=== PATIENT | male | born 1945 | race Caucasian/White ===

== ENCOUNTER 2021-03-12 05:27 | Emergency (ER) | payer OTHER ==
--- OUTSIDE RECORDS SUMMARY | 2021-03-12 05:30 | XMS REPORT | Continuity of Care Document ---
:1945 Author Organization [facility] t Address [address] [place] [address] Care Team Providers Name Role Phone David Trevino Primary Care Physician SHERI Attending Clinician Unavailable Stocks, W Attending Clinician Unavailable Lab, Fam Pob I Attending Clinician Unavailable Krishna TERRY Attending Clinician KRISHNA Attending Clinician Unavailable Doctor Unassigned, Name Attending Clinician Unavailable Stocks, W Admitting Clinician Unavailable UNDEFINED Admitting Clinician Unavailable Payers Payer Name Policy Type Policy Number Effective Date Expiration Date S jaylen [employer] MEDICARE PPO [id number] 2013 00:00:00 Problems Condition Condition Condition Status Onset Resolution Last Treating Co mments Source Name Details Category Date Date Treatment Clinician Date No known No known Disease [place] active active Health problems problems Allergies, Adverse Reactions, Alerts Allergy Allergy Status Severity Reaction(s) Onset Inactive Treating Comm ents Source Name Type Date Date Clinician travopro DA [facility]: [address] BROMONID DA Active SV EYES ITCHING HC A INE 02-22 00:: [address] amlodipi DA Active SV SWELLING,LILLIAN HC A ne NT PAIN 02-22 00:: [address] travopro DA Active SV EYES ITCHING HC A st 02-22 00:00: [address] amlodipi DA Active SV [facility] ne 02-22 [place] 00:00: [address] Amlodipi Allergy Active Swelling UT ne to 11-17 Health substanc 00:00: e 00 Brimonid Propensi Active Itching UT ine ty to 11-17 Health adverse 00:00: reaction 00 s Travopro Allergy Active Itching [facility] st to 11-17 Health substanc 00:00: e 00 No DA Active U 2005-02 [facility] Allergy 03-18 [place] [facility] 00[facility] l No Known DA Active U 2005-02 [facility] Contrast 03-18 [place] Allergie 00:00: Orthope s 00 dic Hospita l No Known DA Active U 2005-02 [facility] Drug 03-18 [place] Allergie 00:00: Orthope [facility] 00 dic [facility]osp[facility] l No Known DA Active U 2005-02 [facility] Food 03-18 [place] Allergie 00:00: Orthope s 00 dic Hospita l No Known DA Active U 2005-02 [facility] Other 03-18 [place] All[facility]ie 00:00: Orthope s 00 dic Hospita l NO KNOWN Drug Active [facility] Social History Social Habit Start Date Stop Date Quantity Comments Source Sex Assigned At [facility] y of [facility] History [facility] Health Alcohol Std Drinks History [facility] Alcohol Binge Exposure to Not sure [facility] SARS-CoV-2 (event) History [facility] Alcohol Comment Alcohol intake 2020-10-20 2020-10-20 Lifetime [facility] 00:00:00 00:00:00 non-drinker (finding) History [facility] 2020-10-20 2020-10-20 1 [facility] Alcohol Frequency 00:00:00 00:00:00 Tobacco use and 2020-10-20 2020-10-20 Smokeless tobacco [facility] exposure 00:00:00 00:00:00 non-user Smoking Status Start Date Stop Date Source Unknown if ever smoked [facility] Never smoked tobacco [facility] Medications Ordered Filled Start Stop Current Ordering Indication Dosage Frequency Signature Comments Components Source Medication Medication Date Date Medication? Clinician (SIG) Name Name diclofenac 2020-02- Yes [id number] 50mg [id number] Take 1 [facility] (Voltaren) 15 11-16 [id number] tablet (50 Health 50 MG EC 00:00: 05:59 3D mg total) tablet 00 :00 by mouth 3 (three) times a day if needed (pain). Do not crush, chew, or split. ipratropium 2020-0 Yes INSTILL 2 U T (Atrovent) 8-02 SPRAYS Health 0.03 % 00:00: INTO EACH nasal spray 00 NOSTRILS UP TO 4 TIMES DAILY ipratropium 2020-0 Yes INSTILL 2 U T (Atrovent) 8-02 SPRAYS Health 0.03 % 00:00: INTO EACH nasal spray 00 NOSTRILS UP TO 4 TIMES DAILY ipratropium 2020-0 Yes INSTILL 2 U T (Atrovent) 8-02 SPRAYS Health 0.03 % 00:00: INTO EACH nasal spray 00 NOSTRILS UP TO 4 TIMES DAILY Januvia 100 Yes TAKE 1 UT MG tablet 7-31 TABLET BY Healt h 00:00: MOUTH 00 DAILY IN MORNING WITH BREAKFAST omeprazole 2020-0 Yes QD Take by UT (PriLOSEC) 7-31 mouth [address] 00:00: (one) time capsule 00 each day. gabapentin 2020-0 Yes 300mg Q.5D Take 300 UT (Neurontin) 7-31 mg by Health 300 MG 00:00: mouth 2 capsule 00 (two) times a day. Januvia 100 Yes TAKE 1 UT MG tablet 7-31 TABLET BY Healt h 00:00: MOUTH 00 DAILY IN MORNING WITH BREAKFAST omeprazole 2020-0 Yes QD Take by UT (PriLOSEC) 7-31 mouth [address] 00:00: (one) time capsule 00 each day. gabapentin 2020-0 Yes 300mg Q.5D Take 300 UT (Neurontin) 7-31 mg by Health 300 MG 00:00: mouth 2 capsule 00 (two) times a day. Januvia 100 Yes TAKE 1 UT MG tablet 7-31 TABLET BY Healt h 00:00: MOUTH 00 DAILY IN MORNING WITH BREAKFAST omeprazole 2020-0 Yes QD Take by UT (PriLOSEC) 7-31 mouth [address] 00:00: (one) time capsule 00 each day. gabapentin 2020-0 Yes 300mg Q.5D Take 300 UT (Neurontin) 7-31 mg by Health 300 MG 00:00: mouth 2 capsule 00 (two) times a day. azelastine Yes PLEASE SEE U T (Astelin) 7-23 ATTACHED Health 0.1 % nasal 00:00: FOR spray 00 DETAILED DIRECTIONS azelastine Yes PLEASE SEE U T (Astelin) 7-23 ATTACHED Health 0.1 % nasal 00:00: FOR spray 00 DETAILED DIRECTIONS azelastine Yes PLEASE SEE U T (Astelin) 7-23 ATTACHED Health 0.1 % nasal 00:00: FOR spray 00 DETAILED DIRECTIONS oxybutynin Yes 5mg QD Take 5 mg UT XL 7-18 by mouth 1 Health (Ditropan-X 00:00: (one) time L) 5 MG 24 each day. hr tablet oxybutynin 0 Yes 5mg QD Take 5 mg UT XL 7-18 by mouth 1 Health (Ditropan-X 00:00: (one) time L) 5 MG 24 each day. hr tablet oxybutynin 0 Yes 5mg QD Take 5 mg UT XL 7-18 by mouth 1 Health (Ditropan-X 00:00: (one) time L) 5 MG 24 each day. hr tablet simvastatin Yes TAKE 1 UT (Zocor) 40 7-14 TABLET BY Heal th MG tablet 00:00: MOUTH 00 DAILY IN EVENING simvastatin Yes TAKE 1 UT (Zocor) 40 7-14 TABLET BY Heal th MG tablet 00:00: MOUTH 00 DAILY IN EVENING simvastatin Yes TAKE 1 UT (Zocor) 40 7-14 TABLET BY Heal th MG tablet 00:00: MOUTH 00 DAILY IN EVENING pioglitazon Yes TAKE 1 UT e (Actos) 7-13 TABLET BY Healt h 15 MG 00:00: MOUTH tablet 00 DAILY IN MORNING WITH BREAKFAST pioglitazon Yes TAKE 1 UT e (Actos) 7-13 TABLET BY Healt h 15 MG 00:00: MOUTH tablet 00 DAILY IN MORNING WITH BREAKFAST pioglitazon Yes TAKE 1 UT e (Actos) 7-13 TABLET BY Healt h 15 MG 00:00: MOUTH tablet 00 DAILY IN MORNING WITH BREAKFAST PARoxetine Yes 20mg QD Take 20 mg U T (Paxil) 20 6-20 by mouth 1 Hea lth MG tablet 00:00: (one) time 00 each day. PARoxetine Yes 20mg QD Take 20 mg U T (Paxil) 20 6-20 by mouth 1 Hea lth MG tablet 00:00: (one) time 00 each day. PARoxetine Yes 20mg QD Take 20 mg U T (Paxil) 20 6-20 by mouth 1 Hea lth MG tablet 00:00: (one) time 00 each day. Farga Yes TAKE 1 UT MG 6-03 TABLET BY Health 00:00: MOUTH 00 DAILY IN MORNING WITH BREAKFAST Farga Yes TAKE 1 UT MG 6-03 TABLET BY Health 00:00: MOUTH 00 DAILY IN MORNING WITH BREAKFAST [facility] Yes TAKE 1 UT MG 6-03 TABLET BY Health 00:00: MOUTH 00 DAILY IN MORNING WITH BREAKFAST Procedures Procedure Date / Time Performed Performing Clinician [facility] e [id number] 2020-03-02 00:00:00 [facility] Or [facility] Encounters Start End Encounter Admission Attending Care Care Encounter Source Date/Time Date/Time Type Type Clinicians Facility Department ID 2021-01-18 Outpatient [facility] [id number] [place] 14:44:43 [facility] 2020-12-13 Outpatient [facility] [id number] [place] 14:33:11 [facility] 2020-10-21 [facility] [id number] [place] 11:31:29 [facility] 2020-03-02 Inpatient MANNY HoyosTO ADMI [id number] [facility] 11:54:00 Toby [id number] [facility] 2021-01-09 2021-01-09 Telephone DEBORAH Sarkar 6400 [id number] [place] 00:00:00 00:00:00 Alana CUMMINGS [id number] Health [id number] 2020-10-20 2020-10-20 Office DEBORAH Sarkar 6400 [id number] [place] 13:34:37 13:49:37 Visit Alana CEDENO [id number] Health [id number] 2020-02-23 2020-02-23 Outpatient Stocks, HCAWU REFE [id number] 18:15:00 18:15:00 Toby [id number] [facility] 2020-02-23 2020-02-23 Outpatient Stocks, HCACL LABO [id number] [facility] 17:54:00 17:54:00 Toby [id number] [facility] 2020-02-23 2020-02-23 Outpatient EL Stocks, HCATO 3DAY [id number] [facility] 00:00:00 00:00:00 Toby [id number] [facility] 2020-01-15 2020-01-15 Laboratory Lab, [facility] [id number] 15:23:31 15:43:31 Only Fam Pob I Health [id number] [place] [id number] Professio [id number] [place] [address] [address] 2020-01-15 2020-01-15 Laboratory Lab, [facility] Fam Pob I [facility] [id number] [facility] 15:23:31 15:43:31 Only [facility] [id number] ity [facility] [id number] Juma as Professio [id number] Fl dical [address] Office [address] 2020-01-15 2020-01-15 Outpatient R KRISHNA [facility] [id number] [facility] 15:20:00 15:20:00 WILNER lopez of [facility] 2020-01-15 2020-01-15 Letter Doctor WILNER [id number] 00:00:00 00:00:00 (Out) Unassigned, NILDA [id number] [place] [facility] [id number] 2020-01-15 2020-01-15 Letter Doctor WILNER [id number] Univers 00:00:00 00:00:00 (Out) Unassigned, NILDA [id number] ity of [place] [facility] [id number] Juma as [id number] Medi pretty 044 Branch Results Test Description Test Time Test Comments Results Result Comments Source GLUBED 2020-03-21 08:46:00 Test Item Value Reference Range Interpretation Comme nts GLUBED (test code = GLUBED) 171 mg/dL 60-125 H [id number] 08:46:00 Test Item Value Reference Range Interpretation Comments GLUBED (test code = GLUBED) 161 mg/dL 60-125 H [id number] 11:31:00 Test Item Value Reference Range Interpretation Comments GLUBED (test code = GLUBED) 167 mg/dL 60-125 H BASIC METABOLIC [id number] 06:44:00 Test Item Value Reference Range Interpretation Comments SODIUM (test code = 137 mmol/L 136-145 N NA) POTASSIUM (test code = 4.2 mmol/L 3.5-5.1 N K) CHLORIDE (test code = 102.0 mmol/L 98-107 N CL) CARBON DIOXIDE (test 24.1 mmol/L 21-32 N code = CO2) GLUCOSE (test code = 189 mg/dL 70-110 H GLU) BLOOD UREA NITROGEN 29 mg/dL 7-18 H (test code = BUN) GLOMERULAR FILTRATION 65.9 >60 Unit o f measure: RATE (test code = GFR) mL/mi n/1.73 [id number] Range:Healthy Adults >90 mL/min/1.73 m2 For Chronic Kidney Disease: St age II Mild Decrease in GFR 60-90 St age III Moderate Decrease in GFR 30-59 Stage IV Severe Decre ase in GFR 15- 29 Stage V Kidney Failure <15 CREATININE (test code 1.09 mg/dL 0.55-1.30 N = CREAT) CALCIUM (test code = 8.5 mg/dL 8.2-10.1 N CA) SPECIMEN COMMENT: POD #[id number] 06:08:00 Test Item Value Reference Range Interpretation Comments HEMOGLOBIN (test code = HGB) 10.6 g/dL 12-16 L HEMATOCRIT (test code = HCT) 30.9 % 37-47 L SPECIMEN COMMENT: POD #[id number] 21:07:00 Test Item Value Reference Range Interpretation Comments GLUBED (test code = GLUBED) 224 mg/dL 60-125 H VITAMIN D 25-HYDROXY (TOTAL)2020-02-25 06:32:00 Test Item Value Reference Range Interpretation Comments VITAMIN D 27.4 ng/mL 30.0-100.0 L Vitamin D defic iency has 25-HYDROXY (TOTAL) been defi valerio by the (test code = Hope ofMed icine and VITD25) an Endocrine So ciety practice guidel ine as alevel of serum 25-OH vitamin D less than 20 ng/mL (1,2).The Endocrine Society went on to further define vitamin Dinsufficiency as a level between 21 and 29 ng/mL (2).1. IOM (Ins titute of Medicine). 2010 . Dietary reference int akes for calcium and D. [place]: [employer] .2. Sinan MF, Mary [place], Monisha no WATSON, et al. Evaluatio n, treatment, and prevention of vitamin D deficiency: an Endocrine Society clinica l practice guideline. WILLIAM EM. 2010; 96(7):1911-30.P erformed At: [facility] [id number] [place], [place] [id number] Gen Cummings MD Ph:[phone] Novel Coronavirus 2018 [id number] 04:41:00 Test Item Value Reference Range Interpretation Comments Novel Coronavirus Negative Negative Positive r esults are 2019 Inhouse (test indicativ e of the presence code = COVNONPUI) ofSARS-CoV -2 RNA, clinical correlation wit h patient historyand othe r diagnostic info rmation is necessary to determinepatien t infection status. Positiv e results do not rule out bacterial infection or co -infection with other viru ses. Negative result s do not preclude SARS-C oV-2 infection andsh ould not be used as the raulito e basis for patient managementdecis ions. Negative result s must be combined with otherclinical observations, p atient history, and epidemiological information . Detection of SARS-CoV-2 RNA may be affe cted bysample collec tion methods, storag e conditions, and /or stageof infection. Marni l RNA mutations, vacc inations, antiviraltherap eutics, antibiotics, chemotherapeuti c orimmunosuppres jordan drugs have not been e valuated for effectson d etection. Results are for the identification of SARS-CoV-2 RNA usingthe Lopez M2000 Sy stem under the FDA Emergen cy UseAuthorizatio n. The testing is perf ormed by personneltraine d in the procedures for the Lopez M2000 molecular diagnostic SARS-CoV-2 assa y in vitro. SPECIMEN COMMENT: NNovel Coronavirus 2019 [id number] 04:41:00 Test Item Value Reference Range Interpretation Comments Novel Coronavirus Negative Negative Positive r esults are 2019 Inhouse (test indicativ e of the presence code = COVNONPUI) ofSARS-CoV -2 RNA, clinical correlation wit h patient historyand othe r diagnostic info rmation is necessary to determinepatien t infection status. Positiv e results do not rule out bacterial infection or co -infection with other viru ses. Negative result s do not preclude SARS-C oV-2 infection andsh ould not be used as the raulito e basis for patient managementdecis ions. Negative result s must be combined with otherclinical observations, p atient history, and epidemiological information . Detection of SARS-CoV-2 RNA may be affe cted bysample collec tion methods, storag e conditions, and /or stageof infection. Marni l RNA mutations, vacc inations, antiviraltherap eutics, antibiotics, chemotherapeuti c orimmunosuppres jordan drugs have not been e valuated for effectson d etection. Results are for the identification of SARS-CoV-2 RNA usingthe Lopez M2000 Sy stem under the FDA Emergen cy UseAuthorizatio n. The testing is perf ormed by personneltraine d in the procedures for the Lopez M2000 molecular diagnostic SARS-CoV-2 assa y in vitro. SPECIMEN COMMENT: NGLYCOSYLATED HEMOGLOBIN (HA1C)2020-02-23 21:06:00 Test Item Value Reference Range Interpretation Comments GLYCOSYLATED 5.8 % 4.8-5.9 N Any condition t hat shortens HEMOGLOBIN (HA1C) erythocyte survival or (test code = GLYHGB) decreas esmean erythrocyte age (e.g., kranthi very from acute blood los s,hemolytic anemia) will fa lsely lower HGBA1c resultsr egardless of the method used . HGBA1c results from vickey cespedes HbSS, HbCC, and HbSc must be interpreted with cautiongiven th e pathological pr ocesses, including anemi a,increased red cell turnov er, transfusion req uirements, thatadversely i mpact HGBA1c as a marker of long-term glycemiccontrol . Alternative for ms of testing such as fructosaminesho uld be considered for these patients. GLYCOSYLATED HEMOGLOBIN (HA1C)2020-02-23 21:06:00 Test Item Value Reference Range Interpretation Comments GLYCOSYLATED 5.8 % 4.8-5.9 Any condition t hat shortens HEMOGLOBIN (HA1C) erythocyte survival or (test code = GLYHGB) decreas esmean erythrocyte age (e.g., kranthi very from acute blood los s,hemolytic anemai) will fa lsely lower HGBA1c resultsr egardless of the method used . HGBA1c results frompat ients with HbSS, HbCC and HbSc must be interpreted wit hcaution given the patho logical processes, incl uding anemia,increase d red cell turnover, trans fusion requirements, t hatadversely impact HGBA1c a s a marker of long-term glycemiccontrol . Alternative for ms of testing such as fructosaminesho uld be considered for these patients.Any co ndition that shortens erytho cyte survival or dec reasesmean erythrocyte age (e.g., recovery from a cute blood loss,hemolytic anemia) will falsely lower H GBA1c resultsregardle ss of the method used. H GBA1c results from vickey cespedes HbSS, HbCC, and HbSc must be interpreted with cautiongiven th e pathological pr ocesses, including anemi a,increased red cell turnov er, transfusion req uirements, thatadversely i mpact HGBA1c as a marker of long-term glycemiccontrol . Alternative for ms of testing such as fructosaminesho uld be considered for these patients.DONE A T: [facility] [id number] [place] [address] COMPREHENSIVE METABOLIC [id number] 18:43:00 Test Item Value Reference Range Interpretation Comments SODIUM (test code = 140 mmol/L 136-145 N NA) POTASSIUM (test code = 4.0 mmol/L 3.5-5.1 N K) CHLORIDE (test code = 102.0 mmol/L 98-107 N CL) CARBON DIOXIDE (test 28.4 mmol/L 21-32 N code = CO2) GLUCOSE (test code = 138 mg/dL 70-110 H GLU) BLOOD UREA NITROGEN 29 mg/dL 7-18 H (test code = BUN) GLOMERULAR FILTRATION 98.5 >60 Unit o f measure: RATE (test code = GFR) mL/mi n/1.73 n0Rizeqrmmm Range:Healthy Adults >90 mL/min/1.73 m2 For Chronic Kidney Disease: St age II Mild Decrease in GFR 60-90 St age III Moderate Decrease in GFR 30-59 Stage IV Severe Decre ase in GFR 15- 29 Stage V Kidney Failure <15 CREATININE (test code 0.77 mg/dL 0.55-1.30 N = CREAT) TOTAL PROTEIN (test 7.3 g/dL 6.4-8.2 N code = PROT) ALBUMIN (test code = 4.3 g/dL 3.4-5.0 N ALB) GLOBULIN (test code = 3.0 g/dL 2.2-4.2 N GLOB) ALBUMIN/GLOBULIN RATIO 1.4 0.7-2.0 N (test code = A/G) CALCIUM (test code = 9.6 mg/dL 8.2-10.1 N CA) BILIRUBIN TOTAL (test 0.70 mg/dL 0.2-1.00 N code = BILT) SGOT/AST (test code = 11.0 U/L 15-37 L AST) SGPT/ALT (test code = 25.0 U/L 12-78 N Please note new ALT) normal range. ALKALINE PHOSPHATASE 80 U/L 46-116 N TOTAL (test code = ALKP) PROTHROMBIN [id number] 17:40:00 Test Item Value Reference Range Interpretation Comments PROTHROMBIN TIME 11.7 secs 10.1-12.5 N PATIENT (test code = PTP) INTERNATIONAL NORMAL 1.03 <2.0 RECOMME NDED THERAPEUTIC RATIO (test code = RANGE FOR ORAL INR) ANTICOAGULANTTR EATMENT: CONDI TION INRProphylaxis of venous thrombos is in 2.0 - 3.0 high-risk medic al or surgical patientsTreatme nt of venous thrombos is 2.0 - 3.0Prevention o f embolism 2.0 - 3.0Prevention o f recurrent embol ism, or 3.0 - 4. 5 patients with mechanical pros thetic intravascular v chen IS PATIENT ON ANTICOAGULANTS ? YLIST ANTICOAGULANT/ANTI PLT MEDICATION : AspirinHas Lab been notified if Patient is on Heparin Drip? NOIf Yes, order CBC, OCCULT BLOOD, PT every other day NTHROMBOPLASTIN TIME [id number] 17:40:00 Test Item Value Reference Range Interpretation Comments PTT ACTIVATED (test code = APTT) 33.2 secs 24.9-37.0 N IS PATIENT ON ANTICOAGULANTS ? YLIST ANTICOAGULANT/ANTI PLT MEDICATION : AspirinHas Lab been notified if Patient is on Heparin Drip? NOIf Yes, order CBC, OCCULT BLOOD, PT every other day NCBC W/AUTO [id number] 17:09:00 Test Item Value Reference Range Interpretation Comments WHITE BLOOD CELL (test code = WBC) 8.1 K/mm3 5.7-10.5 N RED BLOOD CELL (test code = RBC) 3.97 M/mm3 4.2-5.4 L HEMOGLOBIN (test code = HGB) 13.4 g/dL 12-16 N HEMATOCRIT (test code = HCT) 38.6 % 37-47 N MEAN CELL VOLUME (test code = MCV) 97 fL 80-98 N MEAN CELL HGB (test code = MCH) 33.8 pg 27-34 N MEAN CELL HGB CONCENTRATION (test 34.7 g/dL 30.8-34.1 H code = MCHC) RED CELL DISTRIBUTION WIDTH (test 13.2 % 11-16 N code = RDW) PLT (test code = PLT) 137 K/mm3 130-400 N MEAN PLATELET VOLUME (test code = 10.4 fL 8.9-12.1 N MPV) NEUTROPHIL % (test code = NT%) 67.1 % 45-70 N LYMPHOCYTE % (test code = LY%) 21.9 % 20-40 N MONOCYTE % (test code = MO%) 7.0 % 3-10 N EOSINOPHIL % (test code = EO%) 2.8 % 1-5 N BASOPHIL % (test code = BA%) 0.7 % 0.0-1.1 N NEUTROPHIL # (test code = NT#) 5.45 K/mm3 2.00-7.50 N LYMPHOCYTE # (test code = LY#) 1.78 K/mm3 1.50-4.00 N MONOCYTE # (test code = MO#) 0.57 K/mm3 0.2-0.8 N EOSINOPHIL # (test code = EO#) 0.23 K/mm3 0.04-0.4 N BASOPHIL # (test code = BA#) 0.06 K/mm3 0.02-0.10 N MANUAL DIFF REQUIRED (test code = NO MANUAL DIFF MDIFF) NUCLEATED RED BLOOD CELL (test 0 % 0-0 N code = NRBC)
--- NOTE | 2021-03-12 06:53 | EDPHYS ---
Physician Documentation [facility] Name: Radu Dickey Age: 75 yrs Sex: Male : 1945 Arrival Date: 03/12/2021 Time: 05:30 Bed 19 Private MD: ED Physician Phuc Wilhelm HPI: 03/12 06:38 This 75 yrs old Male presents to ER via Ambulatory with complaints of Fall jose e Injury. 06:38 Details of fall: The patient fell from an upright position, while walking. Onset: The jose e symptoms/episode began/occurred last night. Associated injuries: The patient sustained lateral aspect of left wrist, medial aspect of left wrist, dorsal aspect of left wrist and palmar aspect of left wrist, decreased range of motion. Severity of symptoms: At their worst the symptoms were moderate, in the emergency department the symptoms are unchanged. The patient has not experienced similar symptoms in the past. Historical: - Allergies: 05:55 amlodipine; sv1 05:55 Travatan Z; sv1 - Immunization history:: Adult Immunizations up to date, Client reports receiving the 2nd dose of the Covid vaccine. - Social history:: Smoking status: Patient denies any tobacco usage or history of. Patient/guardian denies using alcohol, street drugs, IV drugs, caffeine, over the counter diet medications, tobacco products. - Immunization history: Last tetanus immunization: - up to date. ROS: 06:41 Constitutional: Negative for fever, chills, and weight loss, Eyes: Negative for injury, jose e pain, redness, and discharge, ENT: Negative for injury, pain, and discharge, Neck: Negative for injury, pain, and swelling, Cardiovascular: Negative for chest pain, palpitations, and edema, Respiratory: Negative for shortness of breath, cough, wheezing, and pleuritic chest pain, Abdomen/GI: Negative for abdominal pain, nausea, vomiting, diarrhea, and constipation, Back: Negative for injury and pain, : Negative for injury, bleeding, discharge, and swelling, Skin: Negative for injury, rash, and discoloration, Neuro: Negative for headache, weakness, numbness, tingling, and seizure, Psych: Negative for depression, anxiety, suicide ideation, homicidal ideation, and hallucinations, Allergy/Immunology: Negative for hives, rash, and allergies, Endocrine: Negative for neck swelling, polydipsia, polyuria, polyphagia, and marked weight changes, Hematologic/Lymphatic: Negative for swollen nodes, abnormal bleeding, and unusual bruising. 06:41 MS/extremity: Positive for decreased range of motion, pain, swelling, tenderness, of the lateral aspect of left wrist and medial aspect of left wrist. Exam: 06:41 Constitutional: This is a well developed, well nourished patient who is awake, alert, jose e and in no acute distress. Head/Face: Normocephalic, atraumatic. Eyes: Pupils equal round and reactive to light, extra-ocular motions intact. Lids and lashes normal. Conjunctiva and sclera are non-icteric and not injected. Cornea within normal limits. Periorbital areas with no swelling, redness, or edema. ENT: Nares patent. No nasal discharge, no septal abnormalities noted. Tympanic membranes are normal and external auditory canals are clear. Oropharynx with no redness, swelling, or masses, exudates, or evidence of obstruction, uvula midline. Mucous membranes moist. Neck: Trachea midline, no thyromegaly or masses palpated, and no cervical lymphadenopathy. Supple, full range of motion without nuchal rigidity, or vertebral point tenderness. No Meningismus. Chest/axilla: Normal chest wall appearance and motion. Nontender with no deformity. No lesions are appreciated. Cardiovascular: Regular rate and rhythm with a normal S1 and S2. No gallops, murmurs, or rubs. Normal PMI, no JVD. No pulse deficits. Respiratory: Lungs have equal breath sounds bilaterally, clear to auscultation and percussion. No rales, rhonchi or wheezes noted. No increased work of breathing, no retractions or nasal flaring. Abdomen/GI: Soft, non-tender, with normal bowel sounds. No distension or tympany. No guarding or rebound. No evidence of tenderness throughout. Back: No spinal tenderness. No costovertebral tenderness. Full range of motion. Male : Normal genitalia with no discharge or lesions. Skin: Warm, dry with normal turgor. Normal color with no rashes, no lesions, and no evidence of cellulitis. Neuro: Awake and alert, GCS 15, oriented to person, place, time, and situation. Cranial nerves II-XII grossly intact. Motor strength 5/5 in all extremities. Sensory grossly intact. Cerebellar exam normal. Normal gait. Psych: Awake, alert, with orientation to person, place and time. Behavior, mood, and affect are within normal limits. 06:41 Musculoskeletal/extremity: Extremities: grossly normal except: noted in the left wrist: contusion, decreased ROM, pain, ROM: limited active range of motion, limited passive range of motion, Pulses: Sensation intact. Compartment Syndrome exam of affected extremity: is normal. Joints: the left wrist displays limited range of motion, pain at rest, painful range of motion, swelling, tenderness. Vital Signs: 05:52 BP 136 / 63; Pulse 72; Resp 16; Temp 98.5; Pulse Ox 99% on R/A; Weight 97.52 kg; Height sv1 5 ft. 8 in. (172.72 cm); 06:08 BP 136 / 63; Pulse 72; Resp 16; Temp 98.5; Pulse Ox 99% on R/A; Weight 98.88 kg; Height sv1 5 ft. 8 in. (172.72 cm); Pain 7/10; 06:08 Body Mass Index 33.15 (98.88 kg, 172.72 cm) sv1 [place]ira Coma Score: 06:02 Eye Response: spontaneous(4). Verbal Response: oriented(5). Motor Response: obeys sv1 commands(6). Total: 15. Trauma Score (Adult): 06:02 Eye Response: spontaneous(1); Verbal Response: oriented(1); Motor Response: obeys sv1 commands(2); Systolic BP: > 89 mm Hg(4); Respiratory Rate: 10 to 29 per min(4); Mira Score: 15; Trauma Score: 12 Procedures: 06:41 Splinting: Splint applied to left wrist using sling, wrist splint, applied by tech. [facility] nurse. Examined by sd, post splint application: neurovascular intact, 2+ distal pulses palpable, brisk capillary refill noted. MDM: 05:39 Patient medically screened. [facility] 06:41 Differential diagnosis: contusion, fracture, sprain, strain. Differential diagnosis: [facility] closed fracture, contusion. Data reviewed: nurses notes, radiologic studies, plain films. Data interpreted: monitor car operator: rate is 72 beats/min, rhythm is regular, Pulse oximetry: on room air is 99 %. Test interpretation: by ED physician or midlevel provider: plain radiologic studies. Counseling: I had a detailed discussion with the patient and/or guardian regarding: the historical points, exam findings, and any diagnostic results supporting the discharge/admit diagnosis, radiology results, the need for outpatient follow up, for definitive care, a orthopedic surgeon. 03/12 05:56 Order name: Wrist Left (3 View) XRAY [facility] 03/12 05:56 Order name: Ice pack; Complete Time: 06:19 [facility] 03/12 06:38 Order name: Splint - Sugar Tong - Forearm; Complete Time: 07:10 [facility] 03/12 06:38 Order name: Sling; Complete Time: 07:10 [facility] Administered Medications: 07:00 Drug: [place] (HYDROcodone-acetaminophen) 10 mg-325 mg 1 tabs Route: PO; bp 08:03 Follow up: Response: No adverse reaction bp 07:00 Drug: Motrin (ibuprofen) 600 mg Route: PO; bp 08:03 Follow up: Response: No adverse reaction bp Disposition Summary: 03/12/21 06:53 Discharge Ordered Location: Home jose e Problem: new jose e Symptoms: have improved jose e Condition: Stable jose e Diagnosis - Fracture of lower end of radius - verticle, intrarticular fracture jose e - Fall on same level, unspecified jose e - Fall on same level, unspecified, initial encounter jose e Followup: jose e - With: Private Physician - When: 2 - 3 days - Reason: Recheck today's complaints, Continuance of care, Re-evaluation by your physician Followup: jose e - With: Archie Dinh MD - When: 2 - 3 days - Reason: Recheck today's complaints, Continuance of care, Re-evaluation by your physician Discharge Instructions: - Discharge Summary Sheet jose e - Fall Prevention in the Home, Adult jose e - Wrist Fracture Treated With Immobilization jose e - Wrist Fracture Treated With Immobilization, [id number] jose e - Fall Prevention in the Home, Adult, [id number] [facility] Forms: - Medication Reconciliation Form jose e - Thank You Letter jose e - Antibiotic Education [facility] - Prescription Opioid Use [facility] Prescriptions: - diclofenac sodium 25 mg Oral tablet,delayed release (DR/EC) - take 1 tablet by ORAL route 4 times per day; 30 tablet; Refills: 0, Product jose e Selection Permitted - Tylenol-Codeine #3 300 mg-30 mg Oral - take 2 tablet by ORAL route every 6 hours; 20 tablet; Refills: 0, Product jose e Selection Permitted Signatures: Dispatcher [employer] Phuc Madden MD MD cha Peltier, Brian RN RN Archie Michelle RN RN sv1
--- NOTE | 2021-03-12 06:53 | ER ---
Nurse's Notes [facility] Name: Radu Dickey Age: 75 yrs Sex: Male : 1945 Arrival Date: 03/12/2021 Time: 05:30 Bed 19 Private MD: Diagnosis: Fracture of lower end of radius-verticle, intrarticular fracture;Fall on same level, unspecified;Fall on same level, unspecified, initial encounter Presentation: 03/12 05:52 Chief complaint: Patient states: Left wrist injury. Coronavirus screen: Vaccine status: sv1 Patient reports receiving the 2nd dose of the covid vaccine. Client denies travel out of the [place] in the last 14 days. Ebola Screen: No symptoms or risks identified at this time. Initial Sepsis Screen: Does the patient meet any 2 criteria? No. Patient's initial sepsis screen is negative. Risk Assessment: Do you want to hurt yourself or someone else? Patient reports no desire to harm self or others. Onset of symptoms was March 11, 2021. 05:52 Method Of Arrival: Ambulatory sv1 05:52 Acuity: OLIVER 3 sv1 06:10 Care prior to arrival: None. Mechanism of Injury: Fall from standing. Trauma event sv1 details: Injury occurred: at home. Injury occurred: March 11, 2021. 06:12 Initial Sepsis Screen: Does the patient have a suspected source of infection? No. sv1 Patient's initial sepsis screen is negative. Triage Assessment: 05:55 General: Appears in no apparent distress. uncomfortable, well groomed, well developed. sv1 Pain: Complains of pain in left hand Pain does not radiate. Pain at worst was 7 out of 10 on a pain scale. 06:09 General: Behavior is calm, cooperative. sv1 Trauma Activation: Physician: ED Physician; Name: cheng; Notified At: 05:55; Arrived At: Physician: General Surgeon; Name: ; Notified At: 05:55; Arrived At: Physician: Radiology; Name: ; Notified At: 05:55; Arrived At: Physician: Respiratory; Name: ; Notified At: 05:55; Arrived At: Physician: Lab; Name: ; Notified At: 05:55; Arrived At: Historical: - Allergies: 05:55 amlodipine; sv1 05:55 Travatan Z; sv1 - Immunization history:: Adult Immunizations up to date, Client reports receiving the 2nd dose of the Covid vaccine. - Social history:: Smoking status: Patient denies any tobacco usage or history of. Patient/guardian denies using alcohol, street drugs, IV drugs, caffeine, over the counter diet medications, tobacco products. - Immunization history: Last tetanus immunization: - up to date. Screenin:00 Abuse screen: Denies threats or abuse. Nutritional screening: No deficits noted. sv1 Tuberculosis screening: No symptoms or risk factors identified. Fall Risk Fall in past 12 months (25 points). No secondary diagnosis (0 pts). No IV (0 pts). Ambulatory Aid- None/Bed Rest/Nurse Assist (0 pts). Gait- Normal/Bed Rest/Wheelchair (0 pts) Mental Status- Oriented to own ability (0 pts). Total [place] Fall Scale indicates No Risk (0-24 pts). Primary Survey: 06:02 NO uncontrolled hemorrhage observed. A: The patient is alert. Airway: patent. sv1 Breathing/Chest: Respiratory pattern: regular. Circulation: Pulses: palpable right radial artery, right brachial artery, right dorsalis pedis artery, left brachial artery, left dorsalis pedis artery, left carotid pulse and right carotid pulse. Disability Alert. Exposure/Environment: A warming method has been applied: A warm blanket has been provided to the patient. Reassessment Airway Airway Patent Breathing/Chest Respiratory pattern Regular Respiratory effort Spontaneous Breath sounds Clear Chest inspection Symmetrical Circulation Heart rhythm Sinus rhythm Heart tones Present Pulses Palpable Disability Alert. Assessment: 06:07 Reassessment: The patient stated he lost his balance while walking through his house sv1 last night.. 08:02 Reassessment: PT D/C HOME AMBULATORY, DX WITH DISTAL RADIUS FX. bp Vital Signs: 05:52 BP 136 / 63; Pulse 72; Resp 16; Temp 98.5; Pulse Ox 99% on R/A; Weight 97.52 kg; Height sv1 5 ft. 8 in. (172.72 cm); 06:08 BP 136 / 63; Pulse 72; Resp 16; Temp 98.5; Pulse Ox 99% on R/A; Weight 98.88 kg; Height sv1 5 ft. 8 in. (172.72 cm); Pain 7/10; 06:08 Body Mass Index 33.15 (98.88 kg, 172.72 cm) sv1 Mira Coma Score: 06:02 Eye Response: spontaneous(4). Verbal Response: oriented(5). Motor Response: obeys sv1 commands(6). Total: 15. Trauma Score (Adult): 06:02 Eye Response: spontaneous(1); Verbal Response: oriented(1); Motor Response: obeys sv1 commands(2); Systolic BP: > 89 mm Hg(4); Respiratory Rate: 10 to 29 per min(4); [place] Score: 15; Trauma Score: 12 ED Course: 05:30 Patient arrived in ED. ja2 05:37 Kimberli Caicedo, MING is Primary Nurse. lg3 05:39 Phuc Wilhelm MD is Attending Physician. jose e 05:55 Triage completed. sv1 05:55 Arm band placed on right wrist. sv1 06:00 Patient has correct armband on for positive identification. Bed in low position. Call sv1 light in reach. Side rails up X2. 06:02 Patient maintains SpO2 saturation greater than 95% on room air. sv1 06:13 Thermoregulation: warm blanket given to patient. sv1 06:34 Wrist Left (3 View) XRAY In Process Unspecified. EDMS 06:48 Archie Dinh MD is Referral Physician. jose e 07:30 No provider procedures requiring assistance completed. Patient did not have IV access bp during this emergency room visit. Orthoglass splint: Sugar tong splint applied on left arm. Administered Medications: 07:00 Drug: [place] (HYDROcodone-acetaminophen) 10 mg-325 mg 1 tabs Route: PO; bp 08:03 Follow up: Response: No adverse reaction bp 07:00 Drug: Motrin (ibuprofen) 600 mg Route: PO; bp 08:03 Follow up: Response: No adverse reaction bp Intake: 08:02 PO: 0ml; Total: 0ml. bp Outcome: 06:02 Patient's length of stay was not longer than 2 hours. sv1 06:53 Discharge ordered by . jose e 08:02 Discharged to home ambulatory, with family. bp 08:02 Condition: stable 08:02 Discharge instructions given to patient, Instructed on discharge instructions, follow up and referral plans. medication usage, Demonstrated understanding of instructions, follow-up care, medications, splint care, Prescriptions given X 2. 08:03 Patient left the ED. bp Signatures: Dispatcher [employer] EDPhuc Fox MD MD cha Peltier, Brian, RN RN Kimberli Lopez RN RN lg3 Cuca Shanks Steven RN RN sv1
[2021-03-12] MEDS ORDERED: HYDROCODONE/APAP 10/325 TAB ONE (07:19)
[2021-03-12] MEDS ORDERED: IBUPROFEN 400 MG TAB ONE (07:19)
--- NOTE | 2021-03-12 07:50 | RAD REPORT ---
EXAM DESCRIPTION: RAD - Wrist Left 3 View - 03/12/2021 6:34 am CLINICAL HISTORY: PAIN COMPARISON: No comparisons FINDINGS/IMPRESSION: Distal radial impaction fracture with longitudinal component that approximates the articular surface which is probably involved. There is slight dorsal tilt of the distal radius. R adiocarpal joint space narrowing. Widened scapholunate interval is likely chronic. Advanced degenerat shari changes are present at the base of the thumb.
[2021-03-12 12:26] VITALS: BP 136/63; TEMP 98.5; O2SAT 99
== END 2021-03-12 08:03 | disposition home or self-care (01) ==
LOC: ER 05:27
PROC: 2W3DX1Z Immobilization of Left Lower Arm using Splint (ICD-10-PCS; principal; 2021-03-12)
DX: S52.572A Other intraarticular fracture of lower end of left radius, initial encounter for closed fracture (principal); W18.30XA Fall on same level, unspecified, initial encounter; Z88.8 Allergy status to other drugs, medicaments and biological substances
CPT/HCPCS: 99284

== ENCOUNTER 2022-07-09 10:30 | Day surgery (SDC) | payer OTHER ==
[2022-07-06 15:18] LABS: Protime INR 1.23
[2022-07-06 15:19] LABS: Absolute Lymphocytes (CBC) 1.5 K/uL (0.7-4.9); Lymphocytes % 15.9 % (15.3-44.8); MCV 97.5 fL (80-100); MPV 8.2 fL (7.6-11.3)
[2022-07-06 15:31] LABS: Potassium 4.5 mEq/L (3.5-5.1)
[2022-07-09] MEDS ORDERED: METOPROLOL TARTRATE 5 MG/5 ML INJ IV ONE (10:32)
[2022-07-09] MEDS ORDERED: FENTANYL CITR 100 MCG/2 ML ONE (10:32)
[2022-07-09] MEDS ORDERED: MIDAZOLAM HCL 5 ML ONE (10:32)
[2022-07-09] MEDS ORDERED: FLUMAZENIL 0.1 MG/ML (5 mL VIAL) IV ONE (10:32)
[2022-07-09] MEDS ORDERED: LIDOCAINE VISCOUS 2% SOLN 15 ML UDC ONE ×2 (10:33→11:33)
[2022-07-09] MEDS ORDERED: NALOXONE 0.4 MG/ML VIAL ONE (10:33)
[2022-07-09] MEDS ORDERED: NA CHLORIDE 0.9% 500 ML ONE (10:33)
[2022-07-09] MEDS ORDERED: ATROPINE SULF 1 MG/10 ML SYR IV ONE (10:33)
[2022-07-09] MEDS ORDERED: PHENOL 1.4% ORAL SPRAY 180ML ONE (10:34)
--- NOTE | 2022-07-09 15:27 | EKG ---
Test Date: 2022-07-06 Test Time: 14:52:04 Check Weigher: KIM MEASUREMENT RESULTS: Intervals: Rate: 75 [place]: QRSD: 102 QT: 396 QTc: 442 [place]: P: [place]: QRS: 44 T: 91 INTERPRETIVE STATEMENTS: Atrial fibrillation Low voltage QRS Nonspecific ST and T wave abnormality, probably digitalis effect Abnormal ECG Compared to ECG 10/10/2017 16:13:56 Low QRS voltage now present ST (T wave) deviation now present Sinus rhythm no longer present Electronically Signed On 07-09-22 15:22:21 CDT by Christopher Powell
--- NOTE | 2022-07-10 08:37 | TEE ---
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 TRANSESOPHAGEAL ECHOCARDIOGRAM WAS INSERTED WITHOUT DIFFICULT. 2. WATCHMAN IS SEATED WELL, NO THOMBUS, NO LEAK. 3. MODERATE MITRAL REGURGITATION 4. NORMAL LEFT VENTRICULAR EJECTION FRACTION 55-60% TECHNOLOGIST: SHELLEY BOWMAN
--- NOTE | 2022-07-11 14:31 | OP ---
Date of Procedure: 07/09/2022 Surgeon: RACHEL PEREZ Procedures Performed: 1.Transesophageal echocardiogram. 2.Electrical cardioversion. Indication: Defibrillation. Description Of Procedure: After risks, benefits, and alternatives were explained, patient agreed to the procedure and signed informed consent. After proper time-out, we numbed the back of the throat u sing local lidocaine and inserted KG probe without difficulty and KG was performed. The KG probe was removed and then after given deep sedation with Versed 5 mg, I did a synchronized electrical card ioversion using 200 joules successfully converting the rhythm into normal sinus rhythm. Conclusion: Successful KG-guided electrical cardioversion. SR/MODL Voice ID: [id number] Report ID: [id number]
== END 2022-07-09 13:18 | disposition home or self-care (01) ==
LOC: CCL 10:30
PROVIDERS: ATTEND Internal Medicine
DX: I48.91 Unspecified atrial fibrillation (principal); I10 Essential (primary) hypertension; E78.5 Hyperlipidemia, unspecified; Z79.82 Long term (current) use of aspirin; Z79.899 Other long term (current) drug therapy
CPT/HCPCS: 93005; 93312; 85025; 80048; 36415; 85610; 85730; J2250; J7040; 92960; J0461; J2310; J3010

== ENCOUNTER 2022-08-31 19:05 | Emergency (ER) | payer OTHER ==
--- OUTSIDE RECORDS SUMMARY | 2022-08-31 19:33 | XMS REPORT | Continuity of Care Document ---
:1945 Author Organization [facility] t Address [address] [place] [address] [address] [place] [address] Care Team Providers Name Role Phone Nelson Trevino Primary Care Physician ALANA SARKAR Attending Clinician Unavailable Rose Gay Attending Clinician Unavailable Laila Attending Clinician Unavailable Yg Schroeder Attending Clinician Unavailable Julissa Flynn MD Attending Clinician Steve Mcgovern Attending Clinician Juan Umana Attending Clinician Unavailable Lab, [facility] Sheldon Pob I Attending Clinician Unavailable Wilner Keller PA-C Attending Clinician WILNER KELLER Attending Clinician Unavailable Doctor Unassigned, [place] Attending Clinician Unavailable Cesar Carlos Attending Clinician Merry Lugo Attending Clinician Juanita Lowe Attending Clinician Shekhar Catherine Jr Attending Clinician Shekhar Catherine Attending Clinician Rose Gay Admitting Clinician Unavailable Laila Admitting Clinician Unavailable Alverto Benavides Admitting Clinician Unavailable Juan Umana Admitting Clinician Unavailable UNDEFINED Admitting Clinician Unavailable Cesar Carlos Admitting Clinician Shekhar Catherine Admitting Clinician Payers Payer Name Policy Type Policy Number Effective Date Expiration Date [place] [employer] MEDIC[place] PPO [id number] 2013 2021 00:00:00 00:00:00 [employer]ETNA (MEDICARE [id number] 2021 REPLACEMENT PPO) 00:00:00 Problems Condition Condition Condition Status Onset Resolution Last Treating Co mments Source Name Details Category Date Date Treatment Clinician Date DX: DX: Diagnosis Active 2018-04-21 Mem oria CERVICAL CERVICAL - 07:31:00 l DISC DISC 00:00: Daryn DISORDER DISORDER 00 WITH WITH MYELOPAT MYELOPAT Active 04/08/2018 [facility] LOW BACK LOW BACK Diagnosis Active 2017-12-30 Memoria PAIN, PAIN, 11-13 12:21:00 l LUMBAR LUMBAR 00:00: Daryn STENOSIS, STENOSIS, 00 LUMBAR R LUMBAR R Active 11/13/2017 [facility] LUMBAR LUMBAR Diagnosis Active 2017-09-20 [facility] REGION 09-18 16:08:00 l Active 08:00: Daryn 09/18/2017 00 [facility] Carpal Carpal Problem Active 2015-022022-03-12 Truong martha tunnel tunnel - 12:00:06 l syndrome syndrome 00:00: Luis n (disorder) (disorder) 00 Active 01/05/2016 Problem 03/12/2022 [facility],Ami Teague M [facility] ial [facility] Z98.1 - Z98.1 - Diagnosis Active 2015-12-08 Memoria ARTHRODESI ARTHRODESI 08-16 17:17:00 l S STATUS S STATUS 00:01: Luis n Active 00 08/17/2015 [place] Barrera M47.12 - M47.12 - Diagnosis Active 2015-04-06 Memoria OTHER OTHER 2-17 16:46:00 l SPONDYLOSI SPONDYLOSI 00:01: He rosenda S WITH S WITH 00 MYELOPA MYELOPA Active 04/06/2015 [facility] Stearns UNKNOWN UNKNOWN Diagnosis Active 2015-05-05 Memoria Active 2-17 08:28:00 l 04/06/2015 00:00: Luis bowman [address] CERVICAL CERVICAL Diagnosis Active 2015-05-06 Memoria 4-5 4-5 2-17 07:11:00 l SPONDYLOSI SPONDYLOSI 00:00: He rosenda S S Active 00 04/06/2015 [facility] Cervical Cervical Problem Active 2022-03-12 Memoria disc disc 2-16 12:00:06 l disorder disorder 00:00: Luis n with with 00 myelopathy myelopathy (disorder) (disorder) Active 04/05/2015 Problem 03/12/2022 [facility], Ami Barrera [facility] Cervical Cervical Problem Active 2022-03-12 Memoria radiculopa radiculopa 2-16 12:00:06 l thy thy 00:00: Daryn (disorder) (disorder) 00 Active 04/05/2015 Problem 03/12/2022 [facility], Ami Barrera M [facility] Essential Essential Problem Active 2022-03-12 Memoria hypertensi hypertensi 03-17 12:00:06 l on on 00:00: Daryn (disorder) (disorder) 00 Active 03/17/2015 Problem 03/12/2022 [facility], Ami Barrera M [facility] Glaucoma Glaucoma Problem Active 2022-03-12 Memoria (disorder) (disorder) 03-17 12:00:06 l Active 00:00: Daryn 03/17/2015 00 Problem 03/12/2022 [facility], Ami Barrera [facility] Hyperlipid Hyperlipi Problem Active 2022-03-12 Memoria emia demia 03-17 12:00:06 l (disorder) (disorder) 00:00: He rmann Active 00 03/17/2015 Problem 03/12/2022 [facility], [place],[facility] CLIFTON Barrera,[facility] Spinal Spinal Problem Active 2022-03-12 Truong martha cord cord 03-17 12:00:06 l disorder disorder 00:00: Luis n (disorder) (disorder) 00 Active 03/17/2015 Problem 03/12/2022 [facility], [place],[facility] CLIFTON Barrera,[facility] No known No known Disease [place] active active Health problems problems Neuropathy Neuropath Problem Active 2022-03-12 Memoria (disorder) y 12:00:06 l (disorder) Luis n Active Problem 03/12/2022 bilateral upper and lower [facility], [place],M CL[facility] Stearns, [place] Salazar, [place] Barrera,[facility] Obstructiv Obstructi Problem Active 2022-03-12 Memoria e sleep ve sleep 12:00:06 l apnea apnea [place] syndrome syndrome (disorder) (disorder) Active Problem 03/12/2022 [facility], Ami Barrera, CLIFTON Salazar, CLIFT[place] Barrera,[facility] Spinal Spinal Problem Active 2022-03-12 Truong martha stenosis stenosis 12:00:06 l of lumbar of lumbar Herm maggie region region (disorder) (disorder) Active Problem 03/12/2022 [facility], [place],[facility] CLIFTON Barrera,[facility] Amnesia Amnesia Problem Active 2022-03-12 Me moria (finding) (finding) 12:00:06 l Active [place] Problem 03/12/2022 [facility] Ataxia Ataxia Problem Active 2022-03-12 Truong martha (finding) (finding) 12:00:06 l Active [place] Problem 03/12/2022 [facility] Dizziness Problem Active 2022-03-12 Me moria (finding) Dizziness 12:00:06 l (finding) [place] Active Problem 03/12/2022 [facility] Foot-drop Foot-drop Problem Active 2022-03-12 Memoria (finding) (finding) 12:00:06 l Active [place] Problem 03/12/2022 [facility] OTHER OTHER Diagnosis Active 2015-05-06 [facility] oria SPONDYLOSI SPONDYLOSI 07:11:00 l S, S, [place] CERVICAL CERVICAL REGION REGION Active [facility] Type 2 Type 2 Problem 2018-07-21 Truong martha diabetes diabetes 13:42:54 l mellitus mellitus Luis n with with hyperglyce hyperglyce felecia felecia 07/21/2018 [facility] Urinary Urinary Problem 2018-07-21 Me moria tract tract 13:42:54 l infection, infection, He rmann site not site not specified specified 07/21/2018 [facility] Syndrome Syndrome Problem 2018-07-21 Memoria of of 13:42:54 l inappropri inappropri He rmann ate ate secretion secretion of of antidiuret antidiuret ic hormone ic hormone 07/21/2018 [facility] Spinal Spinal Problem 2018-07-21 Truong martha stenosis, stenosis, 13:42:54 l cervical cervical Luis n region region 07/21/2018 [facility] Essential Essential Problem 2018-07-21 Memoria (primary) (primary) 13:42:54 l hypertensi hypertensi He rmann on on 07/21/2018 [facility], [facility] Radiculopa Radiculop Problem 2018-07-21 Memoria thy, athy, 13:42:54 l lumbar lumbar Daryn region region 07/21/2018 [facility] Hypocalcem Problem 2018-07-21 M emoria ia Hypocalcem 13:42:54 l ia Daryn 07/21/2018 [facility] Spondyloli Spondylol Problem 2018-07-21 Memoria sthesis, isthesis, 13:42:54 l lumbar lumbar Daryn region region 07/21/2018 [facility], CLIFTON Barrera Other Other Problem 2018-07-21 Memor ia bursal bursal 13:42:54 l cyst, cyst, [place] other site other site 9 [facility] Hypoxemia Hypoxemia Problem 2018-07-21 Memoria 07/21/2018 13:42:54 [facility] Other Other Problem 2018-05-04 Memor ia specified specified 14:15:07 l disorders disorders Herm maggie of bone of bone density density and and structure, structure, right right thigh thigh 05/04/2018 [place] Barrera Muscle Muscle Problem 2018-05-08 Truong martha weakness weakness 11:11:07 l (generaliz (generaliz [facility] ed) ed) 05/08/2018 [facility] Spondylosi Spondylos Problem 2018-05-08 Memoria s without is without 11:11:07 l myelopathy myelopathy He rmann or or radiculopa radiculopa thy, thy, lumbar lumbar region region 05/08/2018 [place] Barrera,[facility] Type 2 Type 2 Problem 2018-05-08 Truong martha diabetes diabetes 11:11:07 l mellitus mellitus Luis n without without complicati complicati ons ons 05/08/2018 [facility] Pure Pure Problem 2018-05-08 Memor ia hyperchole hyperchole 11:11:07 l sterolemia sterolemia He ann , , unspecifie unspecifie d d 05/08/2018 [facility] Final: Final: Problem 2015-05-10 Truong martha Other Other 00:25:56 l spondylosi spondylosi He rmann s, s, cervical cervical region region 05/10/2015 [facility] Hypertensi Hypertens Problem Active 2022-03-12 Memoria ve shair 12:00:06 l disorder, disorder, Herm maggie systemic systemic arterial arterial (disorder) (disorder) Active Problem 03/12/2022 [facility],Ami Teague, [place] Hamill, [facility] Diabetes Diabetes Problem Active 2022-03-12 Memoria mellitus mellitus 12:00:06 l type 2 type 2 [place] (disorder) (disorder) Active Problem 03/12/2022 [facility], [place],M CL[place] Stearns, [place]IFT[place] Salazar, [place] Barrera,[facility] Morbid Morbid Problem Active 2022-03-12 Truong martha obesity obesity 12:00:06 l (disorder) (disorder) He rmann Active Problem 03/12/2022 [facility], [place],[facility] CLIFTON Stearns,[facility] Sal[facility], [place] Barrera,[facility] History of Past Illness Condition Condition Condition Status Onset Resolution Last Treating Co mments Source Name Details Category Date Date Treatment Clinician Date Spinal Spinal Problem 2017-022018-07-21 2018-07-21 Memoria stenosis, stenosis, 03-16 13:42:54 13:42:54 l lumbar lumbar 04:48: [place] region region 42 without without neurogenic neurogenic claudicati claudicati on on 01/14/2018 07/21/2018 [facility], [place] Other Other Problem 2018-05-14 2018-05-14 M emoria interverte interverte 10-31 12:37:17 12:37:17 l bral disc bral disc 05:06: Herm maggie degenerati degenerati 44 on, lumbar on, lumbar region region 10/31/2017 05/14/2018 [place] Barrera Low back Low back Problem 2018-05-08 2018-05-08 Memoria pain pain 10-26 11:11:07 11:11:07 l 10/26/2017 05:03: Luis n 05/08/2018 11 [facility] Age-relate Age-relat Problem 2017-2018-05-04 2018-05-04 Memoria d ed - 14:15:07 14:15:07 l osteoporos osteoporos 04:26: He rmann is without is without 46 current current pathologic pathologic al al fracture fracture 10/23/2017 9 [place] Allergies, Adverse Reactions, Alerts Allergy Allergy Status Severity Reaction(s) Onset Inactive Treating Comm ents Source Name Type Date Date Clinician amlodipi DA Active MO SWELLING, 2022-0 [facility] ne JOINT ANKLE 4-10 Clear 00:00: Pretty 00 [facility] brimonid DA Active [place] [facility] ine IRRITATION 4-10 Clear AND ITCHING 00:00: Pretty [facility] travopro DA Active [facility] IRRITATION 4-10 Clear AND ITCHING 00:00: Pretty [facility] azelasti DA Active SV RASH,SWELLIN 0 HC A ne G 1-24 Clear 00:00: [place] [facility] ipratrop DA Active SV RASH,SWELLIN 0 HC A ium G 1-24 Clear 00:00: [place] [facility] Azelasti Propensi Active 2020-02 [place] ne ty to 03-21 Health adverse 00:00: reaction 00 s amlodipi DA Active SV 2020-0 [facility] ne 02-22 [place] 00:00: [address] travopro DA Active SV 2020-[address] 02-22 [place] 00:00: [address] BROMONID DA Active SV EYES ITCHING HC A INE 05 [place] 00:00: [address] amlodipi DA Active SV SWELLING,LILLIAN 0 HC A ne NT PAIN 02-22 [place] 00:00: [address] travopro DA Active SV EYES ITCHING HC A st 02-22 West 00:00: [address] Brimonid Propensi Active Itching [place] ine ty to 11-17 Health adverse 00:00: reaction 00 s Travopro Allergy Active Itching [address] to 11-17 Health substanc 00:00: [...] DA Active U 2005-02 [facility] Food 03-18 Allergie 00:00: [facility]ope [facility] No Known DA Active U 2005-02 [facility] Other 03-18 [place] Allergie 00:00: Orthope s 00 [facility] NO KNOWN Drug Active [facility] ALLERGIE Class ity of [facility] amLODIPi amLODIPi Active Memori a ne ne l Daryn Social History Social Habit Start Date Stop Date Quantity Comments Source History [facility] Health Alcohol Std Drinks History [facility] Alcohol Binge History [facility] Alcohol Comment Sex Assigned At [facility] y of [facility] Exposure to 2022-04-10 2022-04-20 Not sure [facility] SARS-CoV-2 00:00:00 09:51:00 (event) Alcohol intake 2022-04-20 2022-04-20 Ex-drinker [facility] 00:00:00 00:00:00 (finding) Tobacco use and 2022-04-20 2022-04-20 Smokeless tobacco [place] [facility] exposure 00:00:00 00:00:00 non-user History [facility] 2020-10-20 2020-10-20 1 [place] Health Alcohol Frequency 00:00:00 00:00:00 Social History 2017-12-17 2017-12-17 Isaac march 17:06:18 17:06:18 Smoking Status Start Date Stop Date Source Unknown if ever smoked [facility] Tobacco smoking status [facility] Medications Ordered Filled Start Stop Current Ordering Indication Dosage Frequency Signature Comments Components Source Medication Medication Date Date Medication? Clinician (SIG) Name Name 2020-02 Yes PO, Daily, Memoria 1-19 0 l 15:26: Refill(s) Daryn 2020-02 Yes 600 mg = 1 Memori a Lipoic Acid 1-19 cap, PO, l 600 mg oral 15:26: Daily, 0 He rmann capsule 00 Refill(s) 2020-02 Yes PO, Daily, Memoria 1-19 0 l 15:26: Refill(s) [place] 2020-02 Yes 600 mg = 1 Memori a Lipoic Acid 1-19 cap, PO, l 600 mg oral 15:26: Daily, 0 He rmann capsule 00 Refill(s) 2020-02 Yes PO, Daily, Memoria 1-19 0 l 15:26: Refill(s) Daryn Alpha 2020-02 Yes 600 mg = 1 Memori a Lipoic Acid 1-19 cap, PO, l 600 mg oral 15:26: Daily, 0 He rmann capsule 00 Refill(s) D3 2020-02 Yes PO, Daily, Memoria 1-19 0 l 15:26: Refill(s) [place] Alpha 2020-02 Yes 600 mg = 1 Memori a Lipoic Acid 1-19 cap, PO, l 600 mg oral 15:26: Daily, 0 He rmann capsule 00 Refill(s) Alpha 2020-02 Yes 600 mg = 1 Memori a Lipoic Acid 1-19 cap, PO, l 600 mg oral 15:26: Daily, 0 He rmann capsule 00 Refill(s) D3 2020-02 Yes PO, Daily, Memoria 1-19 0 l 15:26: Refill(s) [place] 2020-02 Yes 600 mg = 1 Memori a Lipoic Acid 1-19 cap, PO, l 600 mg oral 15:26: Daily, 0 He rmann capsule 00 Refill(s) D3 2020-02 Yes PO, Daily, Memoria 1-19 0 l 15:26: Refill(s) [place] 2020-02 Yes 600 mg = 1 Memori a Lipoic Acid 1-19 cap, PO, l 600 mg oral 15:26: Daily, 0 He rmann capsule 00 Refill(s) Alpha 2020-02 Yes 600 mg = 1 Memori a Lipoic Acid 1-19 cap, PO, l 600 mg oral 15:26: Daily, 0 He rmann capsule 00 Refill(s) D3 2020-02 Yes PO, Daily, Memoria 1-19 0 l 15:26: Refill(s) [place] Alpha 2020-02 Yes 600 mg = 1 Memori a Lipoic Acid 1-19 cap, PO, l 600 mg oral 15:26: Daily, 0 He rmann capsule 00 Refill(s) Vitamin K2 2020-02 Yes 100 Memoria 1-19 microgram l 15:25: =, PO, [place] 00 Daily, 0 Refill(s) Centrum 2020-02 Yes PO, Daily, Truong martha Men's 1-19 0 l 15:25: Refill(s) Vitamin K2 2020-02 Yes 100 Memoria 1-19 microgram l 15:25: =, PO, [place] 00 Daily, 0 Refill(s) Centrum 2020-02 Yes PO, Daily, Truong martha Men's 1-19 0 l 15:25: Refill(s) Vitamin K2 2020-02 Yes 100 Memoria 1-19 microgram l 15:25: =, PO, Daryn 00 Daily, 0 Refill(s) Centrum 2020-02 Yes PO, Daily, Truong martha Men's 1-19 0 l 15:25: Refill(s) Vitamin K2 2020-02 Yes 100 Memoria 1-19 microgram l 15:25: =, PO, Daryn 00 Daily, 0 Refill(s) Centrum 2020-02 Yes PO, Daily, Truong martha Men's 1-19 0 l 15:25: Refill(s) Vitamin K2 2020-02 Yes 100 Memoria 1-19 microgram l 15:25: =, PO, [place] 00 Daily, 0 Refill(s) Centrum 2020-02 Yes PO, Daily, Truong martah Men's 1-19 0 l 15:25: Refill(s) Vitamin K2 2020-02 Yes 100 Memoria 1-19 microgram l 15:25: =, PO, [place] 00 Daily, 0 Refill(s) Centrum 2020-02 Yes PO, Daily, Truong martha Men's 1-19 0 l 15:25: Refill(s) Vitamin K2 2020-02 Yes 100 Memoria 1-19 microgram l 15:25: =, PO, [place] 00 Daily, 0 Refill(s) Centrum 2020-02 Yes PO, Daily, Truong martha Men's 1-19 0 l 15:25: Refill(s) aspirin 81 2020-02 Yes 324 mg = 4 M emoria mg oral 03-08 cap, PO, l capsule 15:24: Q4H, 0 Daryn 00 Refill(s) Vitamin C 2020-02 Yes 1,000 mg = Me moria 1000 mg 03-08 1 tab, PO, l oral tablet 15:24: Daily, # He rmann 00 90 tab, 0 Refill(s) aspirin 81 2020-02 Yes 324 mg = 4 M emoria mg oral 1-19 cap, PO, l capsule 15:24: Q4H, 0 [place] 00 Refill(s) Vitamin C 2020-02 Yes 1,000 mg = Me moria 1000 mg 1-19 1 tab, PO, l oral tablet 15:24: Daily, # He rmann 00 90 tab, 0 Refill(s) aspirin 81 2020-02 Yes 324 mg = 4 M emoria mg oral 1-19 cap, PO, l capsule 15:24: Q4H, 0 [place] 00 Refill(s) Vitamin C 2020-02 Yes 1,000 mg = Me moria 1000 mg 1-19 1 tab, PO, l oral tablet 15:24: Daily, # He rmann 00 90 tab, 0 Refill(s) aspirin 81 2020-02 Yes 324 mg = 4 M emoria mg oral 1-19 cap, PO, l capsule 15:24: Q4H, 0 [place] 00 Refill(s) Vitamin C 2020-02 Yes 1,000 mg = Me moria 1000 mg -19 1 tab, PO, l oral tablet 15:24: Daily, # He rmann 00 90 tab, 0 Refill(s) aspirin 81 2020-02 Yes 324 mg = 4 M emoria mg oral 1-19 cap, PO, l capsule 15:24: Q4H, 0 Daryn 00 Refill(s) Vitamin C 2020-02 Yes 1,000 mg = Me moria 1000 mg 1-19 1 tab, PO, l oral tablet 15:24: Daily, # He rmann 00 90 tab, 0 Refill(s) aspirin 81 2020-02 Yes 324 mg = 4 M emoria mg oral 1-19 cap, PO, l capsule 15:24: Q4H, 0 [place] 00 Refill(s) Vitamin C 2020-02 Yes 1,000 mg = Me moria 1000 mg 1-19 1 tab, PO, l oral tablet 15:24: Daily, # He rmann 00 90 tab, 0 Refill(s) aspirin 81 2020-02 Yes 324 mg = 4 M emoria mg oral 1-19 cap, PO, l capsule 15:24: Q4H, 0 Daryn 00 Refill(s) Vitamin C 2020-02 Yes 1,000 mg = Me moria 1000 mg 1-19 1 tab, PO, l oral tablet 15:24: Daily, # He rmann 00 90 tab, 0 Refill(s) Ipratropium 2020-02 Yes 2 spray, Me moria Eagar 1-19 Each l 0.021 15:23: Affected Daryn MG/ACTUAT 00 Nostril, Metered TID, # 30 Dose Nasal ml, 0 Castell Refill(s) Taisha 2020-02 Yes PO, 0 Memoria 1-19 Refill(s) l 15:23: [place] 00 Xyzal 2020-02 Yes PO, QPM, 0 Memori a 1-19 Refill(s) l 15:23: [place] 00 Ipratropium 2020-02 Yes 2 spray, Me moria Eagar 1-19 Each l 0.021 15:23: Affected Daryn MG/ACTUAT 00 Nostril, Metered TID, # 30 Dose Nasal ml, 0 Castell Refill(s) Taisha 2020-02 Yes PO, 0 Memoria 1-19 Refill(s) l 15:23: Daryn 00 Xyzal 2020-02 Yes PO, QPM, 0 Memori a 1-19 Refill(s) l 15:23: [place] 00 Ipratropium 2020-02 Yes 2 spray, Me moria Eagar 1-19 Each l 0.021 15:23: Affected [place] MG/ACTUAT 00 Nostril, Metered TID, # 30 Dose Nasal ml, 0 Castell Refill(s) Taisha 2020-02 Yes PO, 0 Memoria 1-19 Refill(s) l 15:23: [place] 00 Xyzal 2020-02 Yes PO, QPM, 0 Memori a 1-19 Refill(s) l 15:23: [place] 00 Ipratropium 2020-02 Yes 2 spray, Me moria Eagar 1-19 Each l 0.021 15:23: Affected Daryn MG/ACTUAT 00 Nostril, Metered TID, # 30 Dose Nasal ml, 0 Castell Refill(s) Taisha 2020-02 Yes PO, 0 Memoria 1-19 Refill(s) l 15:23: [place] 00 Xyzal 2020-02 Yes PO, QPM, 0 Memori a 1-19 Refill(s) l 15:23: [place] Ipratropium 2020-02 Yes 2 spray, Me moria Eagar 1-19 Each l 0.021 15:23: Affected [place] MG/ACTUAT 00 Nostril, Metered TID, # 30 Dose Nasal ml, 0 Castell Refill(s) Taisha 2020-02 Yes PO, 0 Memoria 1-19 Refill(s) l 15:23: Daryn Xyzal 2020-02 Yes PO, QPM, 0 Memori a 1-19 Refill(s) l 15:23: Daryn ipratropium 2020-02 Yes 2 spray, Me moria nasal 0.03% 1-19 Each l spray 15:23: Affected [place] 00 Nostril, TID, # 30 ml, 0 Refill(s) Taisha 2020-02 Yes PO, 0 Memoria 1-19 Refill(s) l 15:23: [place] Ipratropium 2020-02 Yes 2 spray, Me moria Eagar 1-19 Each l 0.021 15:23: Affected [place] MG/ACTUAT 00 Nostril, Metered TID, # 30 Dose Nasal ml, 0 Castell Refill(s) Taisha 2020-02 Yes PO, 0 Memoria 1-19 Refill(s) l 15:23: [place] Xyzal 2020-02 Yes PO, QPM, 0 Memori a 1-19 Refill(s) l 15:23: [place] Ipratropium 2020-02 Yes 2 spray, Me moria Eagar 1-19 Each l 0.021 15:23: Affected [place] MG/ACTUAT 00 Nostril, Metered TID, # 30 Dose Nasal ml, 0 Castell Refill(s) Taisha 2020-02 Yes PO, 0 Memoria 1-19 Refill(s) l 15:23: [place] 00 Xyzal 2020-02 Yes PO, QPM, 0 Memori a 1-19 Refill(s) l 15:23: Daryn 00 ipratropium 2020- Yes 2 spray, Me moria nasal 0.03% 1-19 Each l spray 15:23: Affected Nostril, TID, # 30 ml, 0 Refill(s) Taisha 2020-02 Yes PO, 0 Memoria 03-08 Refill(s) l 15:23: azelastine 2020-02 Yes NASAL, Memor ia 1-19 BID, 0 l 15:22: Refill(s) azelastine 2020-02 Yes NASAL, Memor ia 1-19 BID, 0 l 15:22: Refill(s) azelastine 2020-02 Yes NASAL, Memor ia 1-19 BID, 0 l 15:22: Refill(s) azelastine 2020-02 Yes NASAL, Memor ia 1-19 BID, 0 l 15:22: Refill(s) azelastine 2020-02 Yes NASAL, Memor ia 1-19 BID, 0 l 15:22: Refill(s) azelastine 2020-02 Yes NASAL, Memor ia nasal -19 BID, 0 l 15:22: Refill(s) azelastine 2020-02 Yes NASAL, Memor ia 1-19 BID, 0 l 15:22: Refill(s) azelastine 2020-02 Yes NASAL, Memor ia 1-19 BID, 0 l 15:22: Refill(s) azelastine 2020-02 Yes NASAL, Memor ia nasal -19 BID, 0 l 15:22: Refill(s) Paroxetine 2020-02 Yes 20 mg = 1 Me moria Hydrochlori -19 tab, PO, l de 20 MG 15:21: Daily, # Shea nn Oral Tablet 00 90 tab, 0 Refill(s) Preservativ 2020-02 Yes 1 drp, Truong martha e-Free 03-08 BOTH EYES, l dorzolamide 15:21: BID, 0 Herm maggie 20 MG/ML / 00 Refill(s) Timolol 5 MG/ML Ophthalmic Solution [Cosopt] Paroxetine 2020-02 Yes 20 mg = 1 Me moria Hydrochlori -19 tab, PO, l de 20 MG 15:21: Daily, # Shea nn Oral Tablet 00 90 tab, 0 Refill(s) Preservativ 2020-02 Yes 1 drp, Truong martha e-Free 03-08 BOTH EYES, l dorzolamide 15:21: BID, 0 Herm maggie 20 MG/ML / 00 Refill(s) Timolol 5 MG/ML Ophthalmic Solution [Cosopt] Paroxetine 2020-02 Yes 20 mg = 1 Me moria Hydrochlori 1-19 tab, PO, l de 20 MG 15:21: Daily, # Shea nn Oral Tablet 00 90 tab, 0 Refill(s) Preservativ 2020-02 Yes 1 drp, Truong martha e-Free 03-08 BOTH EYES, l dorzolamide 15:21: BID, 0 Herm maggie 20 MG/ML / 00 Refill(s) Timolol 5 MG/ML Ophthalmic Solution [Cosopt] Paroxetine 2020-02 Yes 20 mg = 1 Me moria Hydrochlori -19 tab, PO, l de 20 MG 15:21: Daily, # Shea nn Oral Tablet 00 90 tab, 0 Refill(s) Preservativ 2020-02 Yes 1 drp, Truong martha e-Free 03-08 BOTH EYES, l dorzolamide 15:21: BID, 0 Herm maggie 20 MG/ML / 00 Refill(s) Timolol 5 MG/ML Ophthalmic Solution [Cosopt] Paroxetine 2020-02 Yes 20 mg = 1 Me moria Hydrochlori -19 tab, PO, l de 20 MG 15:21: Daily, # Shea nn Oral Tablet 00 90 tab, 0 Refill(s) Preservativ 2020-02 Yes 1 drp, Truong martha e-Free 03-08 BOTH EYES, l dorzolamide 15:21: BID, 0 Herm maggie 20 MG/ML / 00 Refill(s) Timolol 5 MG/ML Ophthalmic Solution [Cosopt] PARoxetine 2020-02 Yes 20 mg = 1 Me moria 20 mg oral -19 tab, PO, l tablet 15:21: Daily, # [place] 00 90 tab, 0 Refill(s) Cosopt PF 2020-02 Yes 1 drp, Memori a 2%-0.5% 03-08 BOTH EYES, l ophthalmic 15:21: BID, 0 Shea nn SOLN 00 Refill(s) Paroxetine 2020-02 Yes 20 mg = 1 Me moria Hydrochlori -19 tab, PO, l de 20 MG 15:21: Daily, # Shea nn Oral Tablet 00 90 tab, 0 Refill(s) Preservativ 2020-02 Yes 1 drp, Truong martha e-Free 03-08 BOTH EYES, l dorzolamide 15:21: BID, 0 Herm maggie 20 MG/ML / 00 Refill(s) Timolol 5 MG/ML Ophthalmic Solution [Cosopt] Paroxetine 2020-02 Yes 20 mg = 1 Me moria Hydrochlori -19 tab, PO, l de 20 MG 15:21: Daily, # Shea nn Oral Tablet 00 90 tab, 0 Refill(s) Preservativ 2020-02 Yes 1 drp, Truong martha e-Free 03-08 BOTH EYES, l dorzolamide 15:21: BID, 0 Herm maggie 20 MG/ML / 00 Refill(s) Timolol 5 MG/ML Ophthalmic Solution [Cosopt] PARoxetine 2020-02 Yes 20 mg = 1 Me moria 20 mg oral 03-08 tab, PO, l tablet 15:21: Daily, # Dime Box 00 90 tab, 0 Refill(s) Cosopt PF 2020-02 Yes 1 drp, Memori a 2%-0.5% 03-08 BOTH EYES, l ophthalmic 15:21: BID, 0 Shea nn SOLN 00 Refill(s) pioglitazon 2020-02 Yes 15 mg = 1 M emoria e 15 mg -19 tab, PO, l oral tablet 15:14: Daily, 0 He rmann 00 Refill(s) pioglitazon 2020-02 Yes 15 mg = 1 M emoria e 15 mg -19 tab, PO, l oral tablet 15:14: Daily, 0 He rmann 00 Refill(s) pioglitazon 2020-02 Yes 15 mg = 1 M emoria e 15 mg -19 tab, PO, l oral tablet 15:14: Daily, 0 He rmann 00 Refill(s) pioglitazon 2020-02 Yes 15 mg = 1 M emoria e 15 mg -19 tab, PO, l oral tablet 15:14: Daily, 0 He rmann 00 Refill(s) pioglitazon 2020-02 Yes 15 mg = 1 M emoria e 15 mg -19 tab, PO, l oral tablet 15:14: Daily, 0 He rmann 00 Refill(s) pioglitazon 2020-02 Yes 15 mg = 1 M emoria e 15 mg -19 tab, PO, l oral tablet 15:14: Daily, 0 He rmann 00 Refill(s) pioglitazon 2020-02 Yes 15 mg = 1 M emoria e 15 mg -19 tab, PO, l oral tablet 15:14: Daily, 0 He rmann 00 Refill(s) losartan 2020-02 Yes 25 mg = 1 M emoria mg oral -19 tab, PO, l tablet 15:12: Daily, # Dime Box 00 90 tab, 0 Refill(s) losartan 2020-02 Yes 25 mg = 1 M emoria mg oral -19 tab, PO, l tablet 15:12: Daily, # Dime Box 00 90 tab, 0 Refill(s) losartan 2020-02 Yes 25 mg = 1 M emoria mg oral -19 tab, PO, l tablet 15:12: Daily, # Daryn 00 90 tab, 0 Refill(s) losartan 2020-02 Yes 25 mg = 1 M emoria mg oral -19 tab, PO, l tablet 15:12: Daily, # Dime Box 00 90 tab, 0 Refill(s) losartan 2020-02 Yes 25 mg = 1 M emoria mg oral -19 tab, PO, l tablet 15:12: Daily, # Dime Box 00 90 tab, 0 Refill(s) losartan 2020-02 Yes 25 mg = 1 M emoria mg oral -19 tab, PO, l tablet 15:12: Daily, # Daryn 00 90 tab, 0 Refill(s) losartan 2020-02 Yes 25 mg = 1 M emoria mg oral -19 tab, PO, l tablet 15:12: Daily, # Daryn 00 90 tab, 0 Refill(s) gabapentin 2020-02 Yes 300 mg = 1 M emoria 300 MG Oral -19 cap, PO, l Capsule 15:10: TID, # 90 Shea nn 00 cap, 0 Refill(s) gabapentin 2020-02 Yes 300 mg = 1 M emoria 300 MG Oral 1-19 cap, PO, l Capsule 15:10: TID, # 90 Shea nn 00 cap, 0 Refill(s) gabapentin 2020-02 Yes 300 mg = 1 M emoria 300 MG Oral 1-19 cap, PO, l Capsule 15:10: TID, # 90 Shea nn 00 cap, 0 Refill(s) gabapentin 2020-02 Yes 300 mg = 1 M emoria 300 MG Oral 1-19 cap, PO, l Capsule 15:10: TID, # 90 Shea nn 00 cap, 0 Refill(s) gabapentin 2020-02 Yes 300 mg = 1 M emoria 300 MG Oral 1-19 cap, PO, l Capsule 15:10: TID, # 90 Shea nn 00 cap, 0 Refill(s) gabapentin 2020-02 Yes 300 mg = 1 M emoria 300 mg oral 1-19 cap, PO, l capsule 15:10: TID, # 90 Shea nn 00 cap, 0 Refill(s) gabapentin 2020-02 Yes 300 mg = 1 M emoria 300 MG Oral 1-19 cap, PO, l Capsule 15:10: TID, # 90 Shea nn 00 cap, 0 Refill(s) gabapentin 2020-02 Yes 300 mg = 1 M emoria 300 MG Oral 1-19 cap, PO, l Capsule 15:10: TID, # 90 Shea nn 00 cap, 0 Refill(s) gabapentin 2020-02 Yes 300 mg = 1 M emoria 300 mg oral 1-19 cap, PO, l capsule 15:10: TID, # 90 Shea nn 00 cap, 0 Refill(s) diclofenac 2020-02- No [id number] 50mg [id number] Take 1 UT (Voltaren) 115 11-16 [id number] tablet (50 Health 50 MG EC 00:00: 05:59 3D mg total) tablet 00 :00 by mouth 3 (three) times a day if needed (pain). Do not crush, chew, or split. diclofenac 2020-02- No [id number] 50mg [id number] Take 1 UT (Voltaren) 1-15 16 [id number] tablet (50 Health 50 MG EC 00:00: 05:59 3D mg total) tablet 00 :00 by mouth 3 (three) times a day if needed (pain). Do not crush, chew, or split. ipratropium 2020-0 Yes INSTILL 2 U T (Atrovent) 09-19 SPRAYS Health 0.03 % 00:00: INTO EACH nasal spray 00 NOSTRILS UP TO 4 TIMES DAILY ipratropium 2020-0 Yes INSTILL 2 U T (Atrovent) 09-19 SPRAYS Health 0.03 % 00:00: INTO EACH nasal spray 00 NOSTRILS UP TO 4 TIMES DAILY ipratropium 2020-0 Yes INSTILL 2 U T (Atrovent) 09-19 SPRAYS Health 0.03 % 00:00: INTO EACH nasal spray 00 NOSTRILS UP TO 4 TIMES DAILY ipratropium 2020-0 2022- No INSTILL 2 UT (Atrovent) 09-19 SPRAYS Health 0.03 % 00:00: 00:00 INTO EACH nasal spray 00 :00 NOSTRILS UP TO 4 TIMES DAILY Januvia 100 2020-0 Yes TAKE 1 UT MG tablet 7-31 [...] (one) time capsule 00 each day. gabapentin 2020- Yes 300mg Q.5D Take 300 UT (Neurontin) [...] capsule 00 (two) times a day. azelastine 2020- Yes PLEASE SEE U T (Astelin) 09-09 ATTACHED Health 0.1 % nasal 00:00: FOR spray 00 DETAILED DIRECTIONS azelastine 2020-0 Yes PLEASE SEE U T (Astelin) 7 ATTACHED Health 0.1 % nasal 00:00: FOR spray 00 DETAILED DIRECTIONS azelastine 2020-0 Yes PLEASE SEE U T (Astelin) 09-09 ATTACHED Health 0.1 % nasal 00:00: FOR spray 00 DETAILED DIRECTIONS azelastine 2020-0 2022- No PLEASE SEE UT (Astelin) 09-09-15 ATTACHED Healt h 0.1 % nasal 00:00: 00:00 FOR spray 00 :00 DETAILED DIRECTIONS oxybutynin 2020-0 Yes 5mg QD Take 5 mg UT XL 7-18 by mouth 1 Health (Ditropan-X 00:00: (one) time L) 5 MG 24 00 each day. hr tablet oxybutynin 1-0 Yes 5mg QD Take 5 mg UT XL 7-18 by mouth 1 Health (Ditropan-X 00:00: (one) time L) 5 MG 24 00 each day. hr tablet oxybutynin 1-0 Yes 5mg QD Take 5 mg UT XL 7-18 by mouth 1 Health (Ditropan-X 00:00: (one) time L) 5 MG 24 00 each day. hr tablet oxybutynin 1-0 Yes 5mg QD Take 5 mg UT XL 7-18 by mouth 1 Health (Ditropan-X 00:00: (one) time L) 5 MG 24 00 each day. hr tablet oxybutynin 1-0 Yes 5mg QD Take 5 mg UT XL 7-18 by mouth 1 Health (Ditropan-X 00:00: (one) time L) 5 MG 24 00 each day. hr tablet simvastatin Yes TAKE [...] 00:00: (one) time 00 each day. PARoxetine 2020- Yes 20mg QD Take 20 mg U [...] tablet 00:00: (one) time 00 each day. xiga Yes TAKE 1 UT MG 6-03 TABLET BY [email or web address] 00:00: MOUTH 00 DAILY IN MORNING WITH BREAKFAST ga Yes TAKE 1 UT MG 6-03 TABLET BY [facility] 00:00: MOUTH 00 DAILY IN MORNING WITH BREAKFAST xiga Yes TAKE 1 UT MG 6-03 TABLET BY [facility] 00:00: MOUTH 00 DAILY IN MORNING WITH BREAKFAST xiga Yes TAKE 1 UT MG 6-03 TABLET BY [facility] 00:00: MOUTH 00 DAILY IN MORNING WITH BREAKFAST xiga Yes TAKE 1 UT MG 6-03 TABLET BY [facility] 00:00: MOUTH 00 DAILY IN MORNING WITH BREAKFAST oxybutynin Yes 5 mg, PO, Me moria 4-22 Daily, 0 l 15:27: Refill(s) Dime Box 00 oxybutynin 2021-0 Yes 5 mg, PO, Me moria 4-22 Daily, 0 l 15:27: Refill(s) oxybutynin 2020-0 Yes 5 mg, PO, Me moria 4-22 Daily, 0 l 15:27: Refill(s) oxybutynin 2020-0 Yes 5 mg, PO, Me moria 4-22 Daily, 0 l 15:27: Refill(s) oxybutynin 2020-0 Yes 5 mg, PO, Me moria 4-22 Daily, 0 l 15:27: Refill(s) oxybutynin 2020-0 Yes 5 mg, PO, Me moria 4-22 Daily, 0 l 15:27: Refill(s) oxybutynin 2020-0 Yes 5 mg, PO, Me moria 4-22 Daily, 0 l 15:27: Refill(s) oxybutynin 2020-0 Yes 5 mg, PO, Me moria 4-22 Daily, 0 l 15:27: Refill(s) oxybutynin 2020-0 Yes 5 mg, PO, Me moria 4-22 Daily, 0 l 15:27: Refill(s) gabapentin 2020-0 Yes 200 mg, Truong martha 6-30 PO, BID, 0 l 14:29: Refill(s) gabapentin 2020-0 Yes 200 mg, Truong martha 6-30 PO, BID, 0 l 14:29: Refill(s) gabapentin 2020-0 Yes 200 mg, Truong martha 6-30 PO, BID, 0 l 14:29: Refill(s) gabapentin 2020-0 Yes 200 mg, Truong martha 6-30 PO, BID, 0 l 14:29: Refill(s) gabapentin 2020-0 Yes 200 mg, Truong martha 6-30 PO, BID, 0 l 14:29: Refill(s) gabapentin 2020-0 Yes 200 mg, Truong martha 6-30 PO, BID, 0 l 14:29: Refill(s) gabapentin 2020-0 Yes 200 mg, Truong martha 6-30 PO, BID, 0 l 14:29: Refill(s) Daryn 00 Combigan Yes BOTH EYES, Mem oria 9-06 TID, 0 l 14:30: Refill(s) Daryn 00 Diclofenac 2018-0 Yes TOP, TID, Me moria Sodium 10 9-06 0 l MG/ML 14:30: Refill(s) Daryn Topical 00 Cream Combigan Yes BOTH EYES, Mem oria 9-06 TID, 0 l 14:30: Refill(s) Dime Box 00 Diclofenac 0 Yes TOP, TID, Me moria Sodium 10 9-06 0 l MG/ML 14:30: Refill(s) Daryn Topical 00 Cream Combigan Yes BOTH EYES, Mem oria 9-06 TID, 0 l 14:30: Refill(s) Daryn 00 Diclofenac 2018-0 Yes TOP, TID, Me moria Sodium 10 9-06 0 l MG/ML 14:30: Refill(s) Daryn Topical 00 Cream Combigan Yes BOTH EYES, Mem oria 9-06 TID, 0 l 14:30: Refill(s) Daryn 00 Diclofenac 0 Yes TOP, TID, Me moria Sodium 10 9-06 0 l MG/ML 14:30: Refill(s) Dime Box Topical 00 Cream Combigan Yes BOTH EYES, Mem oria 9-06 TID, 0 l 14:30: Refill(s) Dime Box 00 Diclofenac 2018-0 Yes TOP, TID, Me moria Sodium 10 9-06 0 l MG/ML 14:30: Refill(s) Dime Box Topical 00 Cream Combigan Yes BOTH EYES, Mem oria 9-06 TID, 0 l 14:30: Refill(s) Daryn 00 Diclofenac 2018-0 Yes TOP, TID, Me moria Sodium 10 9-06 0 l MG/ML 14:30: Refill(s) Dime Box Topical 00 Cream Combigan Yes BOTH EYES, Mem oria 9-06 TID, 0 l 14:30: Refill(s) Dime Box 00 Diclofenac 2018-0 Yes TOP, TID, Me moria Sodium 10 9-06 0 l MG/ML 14:30: Refill(s) Daryn Topical 00 Cream Acetaminoph 2019-0 Yes 650 mg, Mem oria en 9-06 PO, PRN, 0 l 14:27: Refill(s) Daryn 00 Acetaminoph Yes 650 mg, Mem oria en 906 PO, PRN, 0 l 14:27: Refill(s) Daryn 00 Acetaminoph Yes 650 mg, Mem oria en 06 PO, PRN, 0 l 14:27: Refill(s) Dime Box 00 Acetaminoph Yes 650 mg, Mem oria en 06 PO, PRN, 0 l 14:27: Refill(s) Dime Box 00 Acetaminoph Yes 650 mg, Mem oria en 906 PO, PRN, 0 l 14:27: Refill(s) Dime Box 00 Acetaminoph Yes 650 mg, Mem oria en 06 PO, PRN, 0 l 14:27: Refill(s) Acetaminoph Yes 650 mg, Mem oria en 10-24 PO, PRN, 0 l 14:27: Refill(s) dorzolamide Yes 1 drp, Truong martha 20 MG/ML / 4-02 BOTH EYES, l Timolol 5 16:33: BID, 0 Luis n MG/ML 00 Refill(s) Ophthalmic Solution [Cosopt] PreserVisio Yes 1 cap, PO, Memoria n AREDS 2 4-02 Daily, 0 l 16:33: Refill(s) dorzolamide Yes 1 drp, Truong martha 20 MG/ML / 402 BOTH EYES, l Timolol 5 16:33: BID, 0 Luis n MG/ML 00 Refill(s) Ophthalmic Solution [Cosopt] PreserVisio Yes 1 cap, PO, Memoria n AREDS 2 4-02 Daily, 0 l 16:33: Refill(s) dorzolamide Yes 1 drp, Truong martha 20 MG/ML / 402 BOTH EYES, l Timolol 5 16:33: BID, 0 Luis n MG/ML 00 Refill(s) Ophthalmic Solution [Cosopt] PreserVisio Yes 1 cap, PO, Memoria n AREDS 2 4- Daily, 0 l 16:33: Refill(s) Daryn 00 dorzolamide 2019 Yes 1 drp, Truong martha 20 MG/ML / 4-02 BOTH EYES, l Timolol 5 16:33: BID, 0 Luis n MG/ML 00 Refill(s) Ophthalmic Solution [Cosopt] PreserVisio Yes 1 cap, PO, Memoria n AREDS 2 - Daily, 0 l 16:33: Refill(s) Daryn 00 dorzolamide Yes 1 drp, Truong martha 20 MG/ML / 4-02 BOTH EYES, l Timolol 5 16:33: BID, 0 Luis n MG/ML 00 Refill(s) Ophthalmic Solution [Cosopt] PreserVisio Yes 1 cap, PO, Memoria n AREDS 2 - Daily, 0 l 16:33: Refill(s) Dime Box dorzolamide Yes 1 drp, Truong martha 20 MG/ML / 4-02 BOTH EYES, l Timolol 5 16:33: BID, 0 Luis n MG/ML 00 Refill(s) Ophthalmic Solution [Cosopt] PreserVisio Yes 1 cap, PO, Memoria n AREDS 2 - Daily, 0 l 16:33: Refill(s) Daryn 00 dorzolamide Yes 1 drp, Truong martha 20 MG/ML / -02 BOTH EYES, l Timolol 5 16:33: BID, 0 Luis n MG/ML 00 Refill(s) Ophthalmic Solution [Cosopt] PreserVisio Yes 1 cap, PO, Memoria n AREDS 2 4- Daily, 0 l 16:33: Refill(s) Daryn 00 PreserVisio 0 Yes PO, Daily, Memoria n AREDS 2 05-20 0 l 16:31: Refill(s) Daryn 00 dorzolamide Yes 1 drp, Truong martha 20 MG/ML / 402 BOTH EYES, l Timolol 5 16:31: BID, 0 Luis n MG/ML 00 Refill(s) Ophthalmic Solution [Cosopt] PreserVisio 0 Yes PO, Daily, Memoria n AREDS 2 4-02 0 l 16:31: Refill(s) Daryn 00 dorzolamide 2019-0 Yes 1 drp, Truong martha 20 MG/ML / 4-02 BOTH EYES, l Timolol 5 16:31: BID, 0 Luis n MG/ML 00 Refill(s) Ophthalmic Solution [Cosopt] PreserVisio 2019-0 Yes PO, Daily, Memoria n AREDS 2 4- 0 l 16:31: Refill(s) Dime Box 00 dorzolamide 2018-0 Yes 1 drp, Truong martha 20 MG/ML / 4-02 BOTH EYES, l Timolol 5 16:31: BID, 0 Luis n MG/ML 00 Refill(s) Ophthalmic Solution [Cosopt] PreserVisio 0 Yes PO, Daily, Memoria n AREDS 2 4- 0 l 16:31: Refill(s) Daryn dorzolamide 2018- Yes 1 drp, Truong martha 20 MG/ML / -02 BOTH EYES, l Timolol 5 16:31: BID, 0 Luis n MG/ML 00 Refill(s) Ophthalmic Solution [Cosopt] PreserVisio 0 Yes PO, Daily, Memoria n AREDS 2 05-20 0 l 16:31: Refill(s) Daryn 00 dorzolamide 2018-0 Yes 1 drp, Truong martha 20 MG/ML / -02 BOTH EYES, l Timolol 5 16:31: BID, 0 Luis n MG/ML 00 Refill(s) Ophthalmic Solution [Cosopt] PreserVisio 2018-0 Yes PO, Daily, Memoria n AREDS 2 05-20 0 l 16:31: Refill(s) Dime Box 00 dorzolamide 2018-0 Yes 1 drp, Truong martha 20 MG/ML / 4-02 BOTH EYES, l Timolol 5 16:31: BID, 0 Luis n MG/ML 00 Refill(s) Ophthalmic Solution [Cosopt] PreserVisio 2019-0 Yes PO, Daily, Memoria n AREDS 2 4-02 0 l 16:31: Refill(s) Daryn 00 dorzolamide 2018-0 Yes 1 drp, Truong martha 20 MG/ML / 4-02 BOTH EYES, l Timolol 5 16:31: BID, 0 Luis n MG/ML 00 Refill(s) Ophthalmic Solution [Cosopt] Bacitracin No appl, Truong martha 0.4 UNT/MG 1-04 TOP, QID, l / Neomycin 16:58: # 30 gm, 2 H ermann 0.0035 00 Refill(s), MG/MG / Pharmacy: [facility] cy #[id number] Topical Ointment Bacitracin No appl, Truong martha 0.4 UNT/MG 1-04 TOP, QID, l / Neomycin 16:58: # 30 gm, 2 H ermann 0.0035 00 Refill(s), MG/MG / Pharmacy: [facility] cy #[id number] Topical Ointment Bacitracin No appl, Truong martha 0.4 UNT/MG 04 TOP, QID, l / Neomycin 16:58: # 30 gm, 2 H ermann 0.0035 00 Refill(s), MG/MG / Pharmacy: [facility]MG [facility] #[id number] Topical Ointment Bacitracin No appl, Truong martha 0.4 UNT/MG 1-04 TOP, QID, l / Neomycin 16:58: # 30 gm, 2 H ermann 0.0035 00 Refill(s), MG/MG / Pharmacy: [facility]MG [facility] #[id number] Topical Ointment Bacitracin No appl, Truong martha 0.4 UNT/MG 1-04 TOP, QID, l / Neomycin 16:58: # 30 gm, 2 H ermann 0.0035 00 Refill(s), MG/MG / Pharmacy: [facility]MG cy #[id number] Topical Ointment Bacitracin No 1 appl, Truong martha 0.4 UNT/MG 1-04 TOP, QID, l / Neomycin 16:58: # 30 gm, 2 H ermann 0.0035 00 Refill(s), MG/MG / Pharmacy: [facility] UNT/MG cy #[id number] Topical Ointment Bacitracin No appl, Truong martha 0.4 UNT/MG 1-04 TOP, QID, l / Neomycin 16:58: # 30 gm, 2 H ermann 0.0035 00 Refill(s), MG/MG / Pharmacy: [facility]NT/MG cy #[id number] Topical Ointment Occupationa 2017-02 No See Memori a l Therapy 03-03 Instructio l 12:38: ns, MISC, Daryn 00 ONCALL, Evaluate and Treat 3 times per week for 6 weeks, # 1 box, 0 Refill(s) Physical 2017-02 No See Memoria Therapy 03-03 Instructio l 12:38: ns, MISC, Daryn 00 ONCALL, Evaluate and Treat 3 times per week for 6 weeks, # 1 box, 0 Refill(s) Occupationa 2017-02 No See Memori a l Therapy 03-03 Instructio l 12:38: ns, MISC, Daryn 00 ONCALL, Evaluate and Treat 3 times per week for 6 weeks, # 1 box, 0 Refill(s) Physical 2017-02 No See Memoria Therapy 03-03 Instructio l 12:38: ns, MISC, Daryn 00 ONCALL, Evaluate and Treat 3 times per week for 6 weeks, # 1 box, 0 Refill(s) Occupationa 2017-02 No See Memori a l Therapy 03-03 Instructio l 12:38: ns, MISC, Dime Box 00 ONCALL, Evaluate and Treat 3 times per week for 6 weeks, # 1 box, 0 Refill(s) Physical 2017-02 No See Memoria Therapy 03-03 Instructio l 12:38: ns, MISC, Dime Box 00 ONCALL, Evaluate and Treat 3 times per week for 6 weeks, # 1 box, 0 Refill(s) Occupationa 2017-02 No See Memori a l Therapy 03-03 Instructio l 12:38: ns, MISC, Daryn 00 ONCALL, Evaluate and Treat 3 times per week for 6 weeks, # 1 box, 0 Refill(s) Physical 2017-02 No See Memoria Therapy 03-03 Instructio l 12:38: ns, MISC, Dime Box 00 ONCALL, Evaluate and Treat 3 times per week for 6 weeks, # 1 box, 0 Refill(s) Occupationa 2017-02 No See Memori a l Therapy 03-03 Instructio l 12:38: ns, MISC, Daryn 00 ONCALL, Evaluate and Treat 3 times per week for 6 weeks, # 1 box, 0 Refill(s) Physical 2017-02 No See [facility] 03-03 Instructio l 12:38: ns, MISC, Daryn 00 ONCALL, Evaluate and Treat 3 times per week for 6 weeks, # 1 box, 0 Refill(s) Occupationa 2017-02 No See Memori a l Therapy 03-03 Instructio l 12:38: ns, MISC, Daryn 00 ONCALL, Evaluate and Treat 3 times per week for 6 weeks, # 1 box, 0 Refill(s) Physical 2017-02 No See [facility] 03-03 Instructio l 12:38: ns, MISC, Daryn 00 ONCALL, Evaluate and Treat 3 times per week for 6 weeks, # 1 box, 0 Refill(s) Occupationa 2017-02 No See Memori a l Therapy 03-03 Instructio l 12:38: ns, MISC, Daryn 00 ONCALL, Evaluate and Treat 3 times per week for 6 weeks, # 1 box, 0 Refill(s) Physical 2017-02 No See Memoria Therapy 03-03 Instructio l 12:38: ns, MISC, Daryn 00 ONCALL, Evaluate and Treat 3 times per week for 6 weeks, # 1 box, 0 Refill(s) Docusate 2017-02 No 100 mg = 1 Mem oria Sodium 100 -14 cap, PO, l MG Oral 12:29: TID, # 42 Shea nn Capsule 00 cap, 0 [Colace] Refill(s), Pharmacy: [facility] #[id number] sennosides, 2017-02 No 8.6 mg = 1 Memoria LONGTERM 8.6 MG -14 tab, PO, l Oral Tablet 12:29: BID, PRN He rm 00 Constipati on, X 10 day, # 20 tab, 0 Refill(s), Pharmacy: [facility] #[id number] ciprofloxac 2017-02 No 500 mg = 1 Memoria in 500 mg 1-14 tab, PO, l oral tablet 12:29: Q12H, X 7 H erm day, # 14 tab, 0 Refill(s), Pharmacy: [facility] #[id number] Methocarbam 2017-02 No 500 mg = 1 Memoria ol 500 MG 1-14 tab, PO, l Oral Tablet 12:29: QID, PRN He rmann [Robaxin] 00 muscle pain, X 14 day, # 56 tab, 0 Refill(s), [id number] Docusate 2017-02 No 100 mg = 1 Mem oria Sodium 100 1-14 cap, PO, l MG Oral 12:29: TID, # 42 Shea nn Capsule 00 cap, 0 [Colace] Refill(s), [id number] sennosides, 2017-02 No 8.6 mg = 1 Memoria LONGTERM 8.6 MG 1-14 tab, PO, l Oral Tablet 12:29: BID, PRN He rmann 00 Constipati on, X 10 day, # 20 tab, 0 Refill(s), [id number] ciprofloxac 2017-02 No 500 mg = 1 Memoria in 500 mg 1-14 tab, PO, l oral tablet 12:29: Q12H, X 7 H ermann 00 day, # 14 tab, 0 Refill(s), Pharmacy: [facility] #[id number] Methocarbam 2017-02 No 500 mg = 1 Memoria ol 500 MG 1-14 tab, PO, l Oral Tablet 12:29: QID, PRN He rmann [Robaxin] 00 muscle pain, X 14 day, # 56 tab, 0 Refill(s), Pharmacy: [facility] #[id number] Docusate 2017-02 No 100 mg = 1 Mem oria Sodium 100 1-14 cap, PO, l MG Oral 12:29: TID, # 42 Shea nn Capsule 00 cap, 0 [Colace] Refill(s), Pharmacy: [facility] #[id number] sennosides, 2017-02 No 8.6 mg = 1 Memoria LONGTERM 8.6 MG 1-14 tab, PO, l Oral Tablet 12:29: BID, PRN He rmann 00 Constipati on, X 10 day, # 20 tab, 0 Refill(s), Pharmacy: [facility] #[id number] ciprofloxac 2017-02 No 500 mg = 1 Memoria in 500 mg 1-14 tab, PO, l oral tablet 12:29: Q12H, X 7 H ermann 00 day, # 14 tab, 0 Refill(s), [id number] Methocarbam 2017-02 No 500 mg = 1 Memoria ol 500 MG 1-14 tab, PO, l Oral Tablet 12:29: QID, PRN He rmann [Robaxin] 00 muscle pain, X 14 day, # 56 tab, 0 Refill(s), [id number] Docusate 2017-02 No 100 mg = 1 Mem oria Sodium 100 1-14 cap, PO, l MG Oral 12:29: TID, # 42 Shea nn Capsule 00 cap, 0 [Colace] Refill(s), [id number] sennosides, 2017-02 No 8.6 mg = 1 Memoria LONGTERM 8.6 MG 1-14 tab, PO, l Oral Tablet 12:29: BID, PRN He rmann 00 Constipati on, X 10 day, # 20 tab, 0 Refill(s), [id number] ciprofloxac 2017-02 No 500 mg = 1 Memoria in 500 mg 1-14 tab, PO, l oral tablet 12:29: Q12H, X 7 H ermann 00 day, # 14 tab, 0 Refill(s), [id number] Methocarbam 2017-02 No 500 mg = 1 Memoria ol 500 MG 1-14 tab, PO, l Oral Tablet 12:29: QID, PRN He rmann [Robaxin] 00 muscle pain, X 14 day, # 56 tab, 0 Refill(s), [id number] Docusate 2017-02 No 100 mg = 1 Mem oria Sodium 100 1-14 cap, PO, l MG Oral 12:29: TID, # 42 Shea nn Capsule 00 cap, 0 [Colace] Refill(s), [id number] sennosides, 2017-02 No 8.6 mg = 1 Memoria LONGTERM 8.6 MG 1-14 tab, PO, l Oral Tablet 12:29: BID, PRN He rmann 00 Constipati on, X 10 day, # 20 tab, 0 Refill(s), [id number] ciprofloxac 2017-02 No 500 mg = 1 Memoria in 500 mg 1-14 tab, PO, l oral tablet 12:29: Q12H, X 7 H ermann 00 day, # 14 tab, 0 Refill(s), [id number] Methocarbam 2017-02 No 500 mg = 1 Memoria ol 500 MG 1-14 tab, PO, l Oral Tablet 12:29: QID, PRN He rmann [Robaxin] 00 muscle pain, X 14 day, # 56 tab, 0 Refill(s), Pharmacy: [facility] #[id number] Docusate 2017-02 No 100 mg = 1 Mem oria Sodium 100 1-14 cap, PO, l MG Oral 12:29: TID, # 42 Shea nn Capsule 00 cap, 0 [Colace] Refill(s), [id number] sennosides, 2017-02 No 8.6 mg = 1 Memoria LONGTERM 8.6 MG 1-14 tab, PO, l Oral Tablet 12:29: BID, PRN He rmann 00 Constipati on, X 10 day, # 20 tab, 0 Refill(s), Pharmacy: [facility] #[id number] ciprofloxac 2017-02 No 500 mg = 1 Memoria in 500 mg 1-14 tab, PO, l oral tablet 12:29: Q12H, X 7 H ermann 00 day, # 14 tab, 0 Refill(s), [id number] Methocarbam 2017-02 No 500 mg = 1 Memoria ol 500 MG 1-14 tab, PO, l Oral Tablet 12:29: QID, PRN He rmann [Robaxin] 00 muscle pain, X 14 day, # 56 tab, 0 Refill(s), Pharmacy: [facility] #[id number] Docusate 2017-02 No 100 mg = 1 Mem oria Sodium 100 1-14 cap, PO, l MG Oral 12:29: TID, # 42 Shea nn Capsule 00 cap, 0 [Colace] Refill(s), [id number] sennosides, 2017-02 No 8.6 mg = 1 Memoria LONGTERM 8.6 MG 1-14 tab, PO, l Oral Tablet 12:29: BID, PRN He rmann 00 Constipati on, X 10 day, # 20 tab, 0 Refill(s), Pharmacy: [email or web address] #[id number] ciprofloxac 2017- No 500 mg = 1 Memoria in 500 mg 1-14 tab, PO, l oral tablet 12:29: Q12H, X 7 H ermann 00 day, # 14 tab, 0 Refill(s), Pharmacy: [email or web address] #[id number] Methocarbam 2017- No 500 mg = 1 Memoria ol 500 MG 1-14 tab, PO, l Oral Tablet 12:29: QID, PRN He rmann [Robaxin] 00 muscle pain, X 14 day, # 56 tab, 0 Refill(s), Pharmacy: [email or web address] #[id number] Sodium 2017- No 3 gm, 3 Memoria Chloride 1-13 tab, l 1000 MG 23:00: Route: PO, Herm maggie Oral Tablet 00 Drug form: TAB, TID-Meals, Dosing Weight 104.545, kg, Start date: 12/31/17 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, 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 day, Stop date: 01/30/18 12:00:00 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 Sodium 2018-1 No 3 gm, 3 Memoria Chloride 1-13 tab, l 1000 MG 23:00: Route: PO, Herm maggie Oral Tablet 00 Drug form: TAB, TID-Meals, Dosing Weight 104.545, kg, Start date: 12/31/17 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, 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 day, Stop date: 01/30/18 12:00:00 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 Sodium 2018-1 No 3 gm, 3 Memoria Chloride 1-13 tab, l 1000 MG 23:00: Route: PO, Herm maggie Oral Tablet 00 Drug form: TAB, TID-Meals, Dosing Weight 104.545, kg, Start date: 12/31/17 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, 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 day, Stop date: 01/30/18 12:00:00 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 Sodium 2018-1 No 3 gm, 3 Memoria Chloride 1-13 tab, l 1000 MG 23:00: Route: PO, Herm maggie Oral Tablet 00 Drug form: TAB, TID-Meals, Dosing Weight 104.545, kg, Start date: 12/31/17 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, 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 day, Stop date: 01/30/18 12:00:00 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 Sodium 2018-1 No 3 gm, 3 Memoria Chloride 1-13 tab, l 1000 MG 23:00: Route: PO, Herm maggie Oral Tablet 00 Drug form: TAB, TID-Meals, Dosing Weight 104.545, kg, Start date: 12/31/17 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, 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 day, Stop date: 01/30/18 12:00:00 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 Sodium 2018-1 No 3 gm, 3 Memoria Chloride 1-13 tab, l 1000 MG 23:00: Route: PO, Herm maggie Oral Tablet 00 Drug form: TAB, TID-Meals, Dosing Weight 104.545, kg, Start date: 12/31/17 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, 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 day, Stop date: 01/30/18 12:00:00 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 Sodium 2018-1 No 3 gm, 3 Memoria Chloride 1-13 tab, l 1000 MG 23:00: Route: PO, Herm maggie Oral Tablet 00 Drug form: TAB, TID-Meals, Dosing Weight 104.545, kg, Start date: 12/31/17 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, 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 day, Stop date: 01/30/18 12:00:00 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 Sodium 2018-1 No 1,000 mL, Memori a Chloride 1-13 Rate: 125 l 0.9% IV 19:26: ml/hr, Daryn 1,000 mL 00 Infuse over: 8 hr, Route: IV, Dosing Weight 104.545 kg, Total Volume: 1,000, Start date: 12/31/17 13:26:00 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, 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 day, Stop date: 01/30/18 13:25:00 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, 2.31, m2 Sodium 2018-1 No 1,000 mL, Memori a Chloride 1-13 Rate: 125 l 0.9% IV 19:26: ml/hr, Dime Box 1,000 mL 00 Infuse over: 8 hr, Route: IV, Dosing Weight 104.545 kg, Total Volume: 1,000, Start date: 12/31/17 13:26:00 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, 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 day, Stop date: 01/30/18 13:25:00 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, 2.31, m2 Sodium 2018-1 No 1,000 mL, Memori a Chloride 1-13 Rate: 125 l 0.9% IV 19:26: ml/hr, Daryn 1,000 mL 00 Infuse over: 8 hr, Route: IV, Dosing Weight 104.545 kg, Total Volume: 1,000, Start date: 12/31/17 13:26:00 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, 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 day, Stop date: 01/30/18 13:25:00 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, 2.31, m2 Sodium 2018- No 1,000 mL, Memori a Chloride 1-13 Rate: 125 l 0.9% IV 19:26: ml/hr, Daryn 1,000 mL 00 Infuse over: 8 hr, Route: IV, Dosing Weight 104.545 kg, Total Volume: 1,000, Start date: 12/31/17 13:26:00 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, 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 day, Stop date: 01/30/18 13:25:00 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, 2.31, m2 Sodium 2017- No 1,000 mL, Memori a Chloride 1-13 Rate: 125 l 0.9% IV 19:26: ml/hr, Dime Box 1,000 mL 00 Infuse over: 8 hr, Route: IV, Dosing Weight 104.545 kg, Total Volume: 1,000, Start date: 12/31/17 13:26:00 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, 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 day, Stop date: 01/30/18 13:25:00 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, 2.31, m2 Sodium 2017- No 1,000 mL, Memori a Chloride 1-13 Rate: 125 l 0.9% IV 19:26: ml/hr, Dime Box 1,000 mL 00 Infuse over: 8 hr, Route: IV, Dosing Weight 104.545 kg, Total Volume: 1,000, Start date: 12/31/17 13:26:00 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, 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 day, Stop date: 01/30/18 13:25:00 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, 2.31, m2 Sodium 2018- No 1,000 mL, Memori a Chloride 1-13 Rate: 125 l 0.9% IV 19:26: ml/hr, Dime Box 1,000 mL 00 Infuse over: 8 hr, Route: IV, Dosing Weight 104.545 kg, Total Volume: 1,000, Start date: 12/31/17 13:26:00 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, 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 day, Stop date: 01/30/18 13:25:00 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, 2.31, m2 Insulin 2017-02 No 60 units) Truong martha regular - WASTE: F/P l 18:25: - Black; E Dime Box 00 - Municipal Trash Bin Stable for 28 days at room temperatur e Expires in days from ____Date Dextrose 2017-02 No 25 gm, 50 Truong martha 50% Syringe 1-13 mL, Route: l 18:25: IVP, Drug Form: INJ, Dosing Weight 104.545, kg, PRN, PRN Blood Glucose Results, Start date: 12/31/17 12:25:00 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, 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 day, Stop date: 01/30/18 12:24:00 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 Glucagon 2017-02 No 1 mg, Memoria 03-02 Route: IM, l 18:25: Drug form: Daryn 00 PDR/INJ, PRN, Dosing Weight 104.545, kg, PRN Blood Glucose Results, Start date: 12/31/17 12:25:00 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, 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 day, Stop date: 01/30/18 12:24:00 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 Insulin 2017-02 No 60 units) Truong martha regular 03-02 WASTE: F/P l 18:25: - Black; E - Municipal Trash Bin Stable for 28 days at room temperatur e Expires in days from ____Date Dextrose 2017-02 No 25 gm, 50 Truong martha 50% Syringe 1-13 mL, Route: l 18:25: IVP, Drug Form: INJ, Dosing Weight 104.545, kg, PRN, PRN Blood Glucose Results, Start date: 12/31/17 12:25:00 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, 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 day, Stop date: 01/30/18 12:24:00 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 Glucagon 2017-02 No 1 mg, Memoria 03-02 Route: IM, l 18:25: Drug form: Daryn 00 PDR/INJ, PRN, Dosing Weight 104.545, kg, PRN Blood Glucose Results, Start date: 12/31/17 12:25:00 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, 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 day, Stop date: 01/30/18 12:24:00 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 Insulin 2017-02 No 60 units) Truong martha regular -13 WASTE: F/P l 18:25: - Black; E - Municipal Trash Bin Stable for 28 days at room temperatur e Expires in days from ____Date Dextrose 2017-02 No 25 gm, 50 Truong martha 50% Syringe 1-13 mL, Route: l 18:25: IVP, Drug Form: INJ, Dosing Weight 104.545, kg, PRN, PRN Blood Glucose Results, Start date: 12/31/17 12:25:00 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, 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 day, Stop date: 01/30/18 12:24:00 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 Glucagon 2017-02 No 1 mg, Memoria 03-02 Route: IM, l 18:25: Drug form: Daryn 00 PDR/INJ, PRN, Dosing Weight 104.545, kg, PRN Blood Glucose Results, Start date: 12/31/17 12:25:00 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, 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 day, Stop date: 01/30/18 12:24:00 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 Insulin 2017-02 No 60 units) Truong martha regular - WASTE: F/P l 18:25: - Black; E - [employer] Trash Bin Stable for 28 days at room temperatur e Expires in days from ____Date Dextrose 2017-02 No 25 gm, 50 Truong martha 50% Syringe 1-13 mL, Route: l 18:25: IVP, Drug Form: INJ, Dosing Weight 104.545, kg, PRN, PRN Blood Glucose Results, Start date: 12/31/17 12:25:00 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, 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 day, Stop date: 01/30/18 12:24:00 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 Glucagon 2017-02 No 1 mg, Memoria 03-02 Route: IM, l 18:25: Drug form: Daryn 00 PDR/INJ, PRN, Dosing Weight 104.545, kg, PRN Blood Glucose Results, Start date: 12/31/17 12:25:00 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, 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 day, Stop date: 01/30/18 12:24:00 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 Insulin 2017-02 No 60 units) Truong martha regular -13 WASTE: F/P l 18:25: - Black; E Daryn 00 - Municipal Trash Bin Stable for 28 days at room temperatur e Expires in days from ____Date Dextrose 2017-02 No 25 gm, 50 Truong martha 50% Syringe 1-13 mL, Route: l 18:25: IVP, Drug Form: INJ, Dosing Weight 104.545, kg, PRN, PRN Blood Glucose Results, Start date: 12/31/17 12:25:00 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, 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 day, Stop date: 01/30/18 12:24:00 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 Glucagon 2017-02 No 1 mg, Memoria 03-02 Route: IM, l 18:25: Drug form: Dime Box PDR/INJ, PRN, Dosing Weight 104.545, kg, PRN Blood Glucose Results, Start date: 12/31/17 12:25:00 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, 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 day, Stop date: 01/30/18 12:24:00 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 Insulin 2017-02 No 60 units) Truong martha regular -13 WASTE: F/P l 18:25: - Black; E - [employer] Trash Bin Stable for 28 days at room temperatur e Expires in days from ____Date Dextrose 2017-02 No 25 gm, 50 Truong martha 50% Syringe 1-13 mL, Route: l 18:25: IVP, Drug Form: INJ, Dosing Weight 104.545, kg, PRN, PRN Blood Glucose Results, Start date: 12/31/17 12:25:00 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, 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 day, Stop date: 01/30/18 12:24:00 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 Glucagon 2017-02 No 1 mg, Memoria 03-02 Route: IM, l 18:25: Drug form: Daryn 00 PDR/INJ, PRN, Dosing Weight 104.545, kg, PRN Blood Glucose Results, Start date: 12/31/17 12:25:00 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, 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 day, Stop date: 01/30/18 12:24:00 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 Insulin 2017-02 No 60 units) Truong martha regular 1-13 WASTE: F/P l 18:25: - Black; E - Municipal Trash Bin Stable for 28 days at room temperatur e Expires in days from ____Date Dextrose 2017-02 No 25 gm, 50 Truong martha 50% Syringe 1-13 mL, Route: l 18:25: IVP, Drug Dime Box 00 Form: INJ, Dosing Weight 104.545, kg, PRN, PRN Blood Glucose Results, Start date: 12/31/17 12:25:00 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, 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 day, Stop date: 01/30/18 12:24:00 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 Glucagon 2017-02 No 1 mg, Memoria 1-13 Route: IM, l 18:25: Drug form: Daryn 00 PDR/INJ, PRN, Dosing Weight 104.545, kg, PRN Blood Glucose Results, Start date: 12/31/17 12:25:00 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, 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 day, Stop date: 01/30/18 12:24:00 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 Ceftriaxone 2017-02 No Notes: Truong martha 1-13 (Same As: l 06:00: Rocephin). Use with 100 mL NS and infuse over 30 min MEDICATION WASTE Product Size: 1000 mg Product Wasted: ___ mg Ceftriaxone 2017-02 No Notes: Truong martha 1-13 (Same As: l 06:00: Rocephin). Daryn 00 Use with 100 mL NS and infuse over 30 min MEDICATION WASTE Product Size: 1000 mg Product Wasted: ___ mg Ceftriaxone 2017-02 No Notes: Truong martha 1-13 (Same As: l 06:00: Rocephin). Dime Box 00 Use with 100 mL NS and infuse over 30 min MEDICATION WASTE Product Size: 1000 mg Product Wasted: ___ mg Ceftriaxone 2017-02 No Notes: Truong martha 1-13 (Same As: l 06:00: Rocephin). Daryn Use with 100 mL NS and infuse over 30 min MEDICATION WASTE Product Size: 1000 mg Product Wasted: ___ mg Ceftriaxone 2017-02 No Notes: Truong martha -13 (Same As: l 06:00: Rocephin). Use with 100 mL NS and infuse over 30 min MEDICATION WASTE Product Size: 1000 mg Product Wasted: ___ mg Ceftriaxone 2017-02 No Notes: Truong martha -13 (Same As: l 06:00: Rocephin). Use with 100 mL NS and infuse over 30 min MEDICATION WASTE Product Size: 1000 mg Product Wasted: ___ mg Ceftriaxone 2017-02 No Notes: Truong martha -13 (Same As: l 06:00: Rocephin). Use with 100 mL NS and infuse over 30 min MEDICATION WASTE Product Size: 1000 mg Product Wasted: ___ mg Tylenol 2017-02 No Notes: Do Memor ia 03-02 not exceed l 03:01: 4 gm/day. (Same as: Tylenol) Tylenol 2017-02 No Notes: Do Memor ia 03-02 not exceed l 03:01: 4 gm/day. (Same as: Tylenol) Tylenol 2017-02 No Notes: Do Memor ia - not exceed l 03:01: 4 gm/day. (Same as: Tylenol) Tylenol 2017-02 No Notes: Do Memor ia - not exceed l 03:01: 4 gm/day. (Same as: Tylenol) Tylenol 2017-02 No Notes: Do Memor ia - not exceed l 03:01: 4 gm/day. (Same as: Tylenol) Tylenol 2017-02 No Notes: Do Memor ia - not exceed l 03:01: 4 gm/day. (Same as: Tylenol) Tylenol 2017-02 No Notes: Do Memor ia -13 not exceed l 03:01: 4 gm/day. (Same as: Tylenol) sennosides, 2017-02 No 8.6 mg, 1 M emoria LONGTERM 8.6 MG 03-02 tab, l Oral Tablet 03:00: Route: PO, Dosing Weight 104.545, kg, Q12H, Start date: 12/30/17 21:00:00 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, 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 day, Stop date: 01/29/18 9:00:00 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 Docusate 2017- No 100 mg, Memori a 1-13 Route: PO, l 03:00: Q12H, Dime Box 00 Dosing Weight 104.545, kg, Start date: 12/30/17 21:00:00 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, 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 day, Stop date: 01/29/18 9:00:00 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 sennosides, 2017- No 8.6 mg, 1 M emoria LONGTERM 8.6 MG 1-13 tab, l Oral Tablet 03:00: Route: PO, Daryn 00 Dosing Weight 104.545, kg, Q12H, Start date: 12/30/17 21:00:00 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, 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 day, Stop date: 01/29/18 9:00:00 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 Docusate 2017-02 No 100 mg, Memori a 1-13 Route: PO, l 03:00: Q12H, Dosing Weight 104.545, kg, Start date: 12/30/17 21:00:00 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, 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 day, Stop date: 01/29/18 9:00:00 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 sennosides, 2017- No 8.6 mg, 1 M emoria LONGTERM 8.6 MG 1-13 tab, l Oral Tablet 03:00: Route: PO, Dime Box 00 Dosing Weight 104.545, kg, Q12H, Start date: 12/30/17 21:00:00 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, 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 day, Stop date: 01/29/18 9:00:00 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 Docusate 2017-02 No 100 mg, Memori a 1-13 Route: PO, l 03:00: Q12H, Daryn 00 Dosing Weight 104.545, kg, Start date: 12/30/17 21:00:00 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, 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 day, Stop date: 01/29/18 9:00:00 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 sennosides, 2017-02 No 8.6 mg, 1 M emoria LONGTERM 8.6 MG 1-13 tab, l Oral Tablet 03:00: Route: PO, Daryn Dosing Weight 104.545, kg, Q12H, Start date: 12/30/17 21:00:00 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, 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 day, Stop date: 01/29/18 9:00:00 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 Docusate 2017- No 100 mg, Memori a 1-13 Route: PO, l 03:00: Q12H, Daryn 00 Dosing Weight 104.545, kg, Start date: 12/30/17 21:00:00 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, 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 day, Stop date: 01/29/18 9:00:00 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 senvivianesides, 2017- No 8.6 mg, 1 M emoria LONGTERM 8.6 MG 1-13 tab, l Oral Tablet 03:00: Route: PO, Daryn Dosing Weight 104.545, kg, Q12H, Start date: 12/30/17 21:00:00 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, 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 day, Stop date: 01/29/18 9:00:00 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 [facility] mg, Memori a 1-13 Route: PO, l 03:00: Q12H, Daryn 00 Dosing Weight 104.545, kg, Start date: 12/30/17 21:00:00 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, 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 day, Stop date: 01/29/18 9:00:00 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 sennosides, 2017-02 No 8.6 mg, 1 M emoria LONGTERM 8.6 MG 1-13 tab, l Oral Tablet 03:00: Route: PO, Dime Box Dosing Weight 104.545, kg, Q12H, Start date: 12/30/17 21:00:00 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, 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 day, Stop date: 01/29/18 9:00:00 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 Docusate 2017-02 No 100 mg, Memori a 1-13 Route: PO, l 03:00: Q12H, Daryn 00 Dosing Weight 104.545, kg, Start date: 12/30/17 21:00:00 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, 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 day, Stop date: 01/29/18 9:00:00 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 sennosides, 2017-02 No 8.6 mg, 1 M emoria LONGTERM 8.6 MG 1-13 tab, l Oral Tablet 03:00: Route: PO, Daryn Dosing Weight 104.545, kg, Q12H, Start date: 12/30/17 21:00:00 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, 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 day, Stop date: 01/29/18 9:00:00 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 Docusate 2018-1 No 100 mg, Memori a 1-13 Route: PO, l 03:00: Q12H, Dime Box 00 Dosing Weight 104.545, kg, Start date: 12/30/17 21:00:00 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, 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 day, Stop date: 01/29/18 9:00:00 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 Sodium 2018-1 No 500 mL, Memoria Chloride 1-13 500 ml/hr, l 0.9% 02:35: Infuse Daryn (Bolus) IV 00 Over: 1 hr, Route: IV, 500, Drug form: INJ, ONCE, Priority: STAT, Dosing Weight 104.545 kg, Start date: 12/30/17 20:35:00 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, Stop date: 12/30/17 20:35:00 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 Sodium 2018-1 No 500 mL, Memoria Chloride 1-13 500 ml/hr, l 0.9% 02:35: Infuse Daryn (Bolus) IV 00 Over: 1 hr, Route: IV, 500, Drug form: INJ, ONCE, Priority: STAT, Dosing Weight 104.545 kg, Start date: 12/30/17 20:35:00 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, Stop date: 12/30/17 20:35:00 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 Sodium 2018-1 No 500 mL, Memoria Chloride 1-13 500 ml/hr, l 0.9% 02:35: Infuse Daryn (Bolus) IV 00 Over: 1 hr, Route: IV, 500, Drug form: INJ, ONCE, Priority: STAT, Dosing Weight 104.545 kg, Start date: 12/30/17 20:35:00 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, Stop date: 12/30/17 20:35:00 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 Sodium 2018-1 No 500 mL, Memoria Chloride 1-13 500 ml/hr, l 0.9% 02:35: Infuse Dime Box (Bolus) IV 00 Over: 1 hr, Route: IV, 500, Drug form: INJ, ONCE, Priority: STAT, Dosing Weight 104.545 kg, Start date: 12/30/17 20:35:00 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, Stop date: 12/30/17 20:35:00 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 Sodium 2018-1 No 500 mL, Memoria Chloride 1-13 500 ml/hr, l 0.9% 02:35: Infuse Daryn (Bolus) IV 00 Over: 1 hr, Route: IV, 500, Drug form: INJ, ONCE, Priority: STAT, Dosing Weight 104.545 kg, Start date: 12/30/17 20:35:00 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, Stop date: 12/30/17 20:35:00 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 Sodium 2017- No 500 mL, Memoria Chloride 1-13 500 ml/hr, l 0.9% 02:35: Infuse Dime Box (Bolus) IV 00 Over: 1 hr, Route: IV, 500, Drug form: INJ, ONCE, Priority: STAT, Dosing Weight 104.545 kg, Start date: 12/30/17 20:35:00 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, Stop date: 12/30/17 20:35:00 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 Sodium 2017- No 500 mL, Memoria Chloride 1-13 500 ml/hr, l 0.9% 02:35: Infuse Dime Box (Bolus) IV 00 Over: 1 hr, Route: IV, 500, Drug form: INJ, ONCE, Priority: STAT, Dosing Weight 104.545 kg, Start date: 12/30/17 20:35:00 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, Stop date: 12/30/17 20:35:00 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 normal 2017-02 No 1,000 mL, Memori a saline 0.9% 1-13 Rate: 120 l IV 1,000 mL 02:33: ml/hr, Herm maggie 00 Infuse over: 8.3 hr, Route: IV, Dosing Weight 104.545 kg, Total Volume: 1,000, Start date: 12/30/17 20:33:00 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, 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 day, Stop date: 01/29/18 20:32:00 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, 2.31, m2 normal 2017-02 No 1,000 mL, Memori a saline 0.9% 1-13 Rate: 120 l IV 1,000 mL 02:33: ml/hr, Herm maggie 00 Infuse over: 8.3 hr, Route: IV, Dosing Weight 104.545 kg, Total Volume: 1,000, Start date: 12/30/17 20:33:00 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, 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 day, Stop date: 01/29/18 20:32:00 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, 2.31, m2 normal 2017-02 No 1,000 mL, Memori a saline 0.9% 1-13 Rate: 120 l IV 1,000 mL 02:33: ml/hr, Herm maggie 00 Infuse over: 8.3 hr, Route: IV, Dosing Weight 104.545 kg, Total Volume: 1,000, Start date: 12/30/17 20:33:00 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, 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 day, Stop date: 01/29/18 20:32:00 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, 2.31, m2 normal 2017-02 No 1,000 mL, Memori a saline 0.9% 1-13 Rate: 120 l IV 1,000 mL 02:33: ml/hr, Herm maggie 00 Infuse over: 8.3 hr, Route: IV, Dosing Weight 104.545 kg, Total Volume: 1,000, Start date: 12/30/17 20:33:00 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, 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 day, Stop date: 01/29/18 20:32:00 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, 2.31, m2 normal 2017-02 No 1,000 mL, Memori a saline 0.9% 1-13 Rate: 120 l IV 1,000 mL 02:33: ml/hr, Herm maggie 00 Infuse over: 8.3 hr, Route: IV, Dosing Weight 104.545 kg, Total Volume: 1,000, Start date: 12/30/17 20:33:00 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, 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 day, Stop date: 01/29/18 20:32:00 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, 2.31, m2 normal 2017-02 No 1,000 mL, Memori a saline 0.9% 1-13 Rate: 120 l IV 1,000 mL 02:33: ml/hr, Herm maggie 00 Infuse over: 8.3 hr, Route: IV, Dosing Weight 104.545 kg, Total Volume: 1,000, Start date: 12/30/17 20:33:00 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, 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 day, Stop date: 01/29/18 20:32:00 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, 2.31, m2 normal 2017-02 No 1,000 mL, Memori a saline 0.9% 1-13 Rate: 120 l IV 1,000 mL 02:33: ml/hr, Herm maggie 00 Infuse over: 8.3 hr, Route: IV, Dosing Weight 104.545 kg, Total Volume: 1,000, Start date: 12/30/17 20:33:00 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, 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 day, Stop date: 01/29/18 20:32:00 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, 2.31, m2 iodixanol 2017-1 No 100 mL, Memor ia 113 Route: l 01:20: IVP, Drug Daryn 00 Form: SOLN, Dosing Weight 104.545, kg, ONCALL, STAT, Start date: 12/30/17 19:20:00 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, Duration: 1 doses or times, Dose = 2.2ml/kg, Max dose = 100ml -- "To be infused by Radiology Staff ONLY" iodixanol 2017-1 No 100 mL, Memor ia 1 Route: l 01:20: IVP, Drug Dime Box Form: SOLN, Dosing Weight 104.545, kg, ONCALL, STAT, Start date: 12/30/17 19:20:00 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, Duration: 1 doses or times, Dose = 2.2ml/kg, Max dose = 100ml -- "To be infused by Radiology Staff ONLY" iodixanol 2017- No 100 mL, Memor ia 03-02 Route: l 01:20: IVP, Drug Dime Box Form: SOLN, Dosing Weight 104.545, kg, ONCALL, STAT, Start date: 12/30/17 19:20:00 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, Duration: 1 doses or times, Dose = 2.2ml/kg, Max dose = 100ml -- "To be infused by Radiology Staff ONLY" iodixanol 2017-1 No 100 mL, Memor ia 03-02 Route: l 01:20: IVP, Drug Daryn Form: SOLN, Dosing Weight 104.545, kg, ONCALL, STAT, Start date: 12/30/17 19:20:00 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, Duration: 1 doses or times, Dose = 2.2ml/kg, Max dose = 100ml -- "To be infused by Radiology Staff ONLY" iodixanol 2017-1 No 100 mL, Memor ia 113 Route: l 01:20: IVP, Drug Daryn 00 Form: SOLN, Dosing Weight 104.545, kg, ONCALL, STAT, Start date: 12/30/17 19:20:00 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, Duration: 1 doses or times, Dose = 2.2ml/kg, Max dose = 100ml -- "To be infused by Radiology Staff ONLY" iodixanol 2017-02 No 100 mL, Memor ia 1-13 Route: l 01:20: IVP, Drug Daryn 00 Form: SOLN, Dosing Weight 104.545, kg, ONCALL, STAT, Start date: 12/30/17 19:20:00 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, Duration: 1 doses or times, Dose = 2.2ml/kg, Max dose = 100ml -- "To be infused by Radiology Staff ONLY" iodixanol 2017-02 No 100 mL, Memor ia 1-13 Route: l 01:20: IVP, Drug Daryn Form: SOLN, Dosing Weight 104.545, kg, ONCALL, STAT, Start date: 12/30/17 19:20:00 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, Duration: 1 doses or times, Dose = 2.2ml/kg, Max dose = 100ml -- "To be infused by Radiology Staff ONLY" Febuvia 2017-02 No Notes: Memoria 1-12 Same as l 16:00: Febuvia Dime Box 2017-02 No Notes: Memoria 1-12 (Same as: l 16:00: Actos) Dime Box2017-02 No Notes: Memoria 1-12 Same as l 16:00: ia Daryn 2017-02 No Notes: Memoria 1-12 (Same as: l 16:00: Actos) Daryn2017-02 No Notes: Memoria 1-12 Same as l 16:00: Febuvia Dime Box Actos 2017-02 No Notes: Memoria 1-12 (Same as: l 16:00: Actos) Dime Box 2017-02 No Notes: Memoria 1-12 Same as l 16:00: Febuvia Daryn Actos 2017-02 No Notes: Memoria 1-12 (Same as: l 16:00: Actos) Daryn 2017-02 No Notes: Memoria 1-12 Same as l 16:00: Febuvia Daryn Actos 2017-02 No Notes: Memoria 1-12 (Same as: l 16:00: Actos) Dime Box 2017-02 No Notes: Memoria 1- Same as l 16:00: Actos 2017-02 No Notes: Memoria 03-01 (Same as: l 16:00: Actos) Dime Box2017-02 No Notes: Memoria 03-01 Same as l 16:00: Dime Box 00 Actos 2017-02 No Notes: Memoria 03-01 (Same as: l 16:00: Actos) Daryn 00 Insulin 2017-02 No 60 units) Truong martha regular 02-28 WASTE: F/P l 17:50: - Black; E Daryn - Municipal Trash Bin Stable for 28 days at room temperatur e Expires in days from ____Date Dextrose 2017-02 No 25 gm, 50 Truong martha 50% Syringe 1-11 mL, Route: l 17:50: IVP, Drug Form: INJ, Dosing Weight 104.545, kg, PRN, PRN Blood Glucose Results, Start date: 12/29/17 11:50:00 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, 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 day, Stop date: 01/28/18 11:49:00 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 Glucagon 2017-02 No 1 mg, Memoria 02-28 Route: IM, l 17:50: Drug form: Dime Box PDR/INJ, PRN, Dosing Weight 104.545, kg, PRN Blood Glucose Results, Start date: 12/29/17 11:50:00 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, 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 day, Stop date: 01/28/18 11:49:00 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 Insulin 2017-02 No 60 units) Truong martha regular 02-28 WASTE: F/P l 17:50: - Black; E Daryn - Municipal Trash Bin Stable for 28 days at room temperatur e Expires in days from ____Date Dextrose 2017-02 No 25 gm, 50 Truong martha 50% Syringe 1-11 mL, Route: l 17:50: IVP, Drug Dime Box 00 Form: INJ, Dosing Weight 104.545, kg, PRN, PRN Blood Glucose Results, Start date: 12/29/17 11:50:00 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, 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 day, Stop date: 01/28/18 11:49:00 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 Glucagon 2017-02 No 1 mg, Memoria 02-28 Route: IM, l 17:50: Drug form: Daryn 00 PDR/INJ, PRN, Dosing Weight 104.545, kg, PRN Blood Glucose Results, Start date: 12/29/17 11:50:00 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, 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 day, Stop date: 01/28/18 11:49:00 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 Insulin 2017-02 No 60 units) Truong martha regular 02-28 WASTE: F/P l 17:50: - Black; E - [facility] Tr[facility] Stable for 28 days at room temperatur e Expires in days from ____Date Dextrose 2017-02 No 25 gm, 50 Truong martha 50% Syringe 1-11 mL, Route: l 17:50: IVP, Drug Form: INJ, Dosing Weight 104.545, kg, PRN, PRN Blood Glucose Results, Start date: 12/29/17 11:50:00 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, 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 day, Stop date: 01/28/18 11:49:00 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 Glucagon 2017-02 No 1 mg, Memoria 02-28 Route: IM, l 17:50: Drug form: Dime Box PDR/INJ, PRN, Dosing Weight 104.545, kg, PRN Blood Glucose Results, Start date: 12/29/17 11:50:00 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, 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 day, Stop date: 01/28/18 11:49:00 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 Insulin 2017-02 No 60 units) Truong martha regular 02-28 WASTE: F/P l 17:50: - Black; E - [facility] Trash [facility] Stable for 28 days at room temperatur e Expires in days from ____Date Dextrose 2017-02 No 25 gm, 50 Truong martha 50% Syringe 1-11 mL, Route: l 17:50: IVP, Drug Form: INJ, Dosing Weight 104.545, kg, PRN, PRN Blood Glucose Results, Start date: 12/29/17 11:50:00 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, 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 day, Stop date: 01/28/18 11:49:00 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 Glucagon 2017-02 No 1 mg, Memoria 02-28 Route: IM, l 17:50: Drug form: Dime Box 00 PDR/INJ, PRN, Dosing Weight 104.545, kg, PRN Blood Glucose Results, Start date: 12/29/17 11:50:00 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, 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 day, Stop date: 01/28/18 11:49:00 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 Insulin 2017-02 No 60 units) Truong martha regular 02-28 WASTE: F/P l 17:50: - Black; E - [facility] Trash [facility] Stable for 28 days at room temperatur e Expires in days from ____Date Dextrose 2017-02 No 25 gm, 50 Truong martha 50% Syringe 1-11 mL, Route: l 17:50: IVP, Drug Form: INJ, Dosing Weight 104.545, kg, PRN, PRN Blood Glucose Results, Start date: 12/29/17 11:50:00 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, 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 day, Stop date: 01/28/18 11:49:00 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 Glucagon 2017-02 No 1 mg, Memoria 02-28 Route: IM, l 17:50: Drug form: Daryn 00 PDR/INJ, PRN, Dosing Weight 104.545, kg, PRN Blood Glucose Results, Start date: 12/29/17 11:50:00 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, 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 day, Stop date: 01/28/18 11:49:00 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 Insulin 2017-02 No 60 units) Truong martha regular 02-28 WASTE: F/P l 17:50: - Black; E - [facility] Trash [facility] Stable for 28 days at room temperatur e Expires in days from ____Date Dextrose 2017-02 No 25 gm, 50 Truong martha 50% Syringe 1-11 mL, Route: l 17:50: IVP, Drug Form: INJ, Dosing Weight 104.545, kg, PRN, PRN Blood Glucose Results, Start date: 12/29/17 11:50:00 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, 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 day, Stop date: 01/28/18 11:49:00 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 Glucagon 2017-02 No 1 mg, Memoria 02-28 Route: IM, l 17:50: Drug form: PDR/INJ, PRN, Dosing Weight 104.545, kg, PRN Blood Glucose Results, Start date: 12/29/17 11:50:00 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, 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 day, Stop date: 01/28/18 11:49:00 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 Insulin 2017-02 No 60 units) Truong martha regular 02-28 WASTE: F/P l 17:50: - Black; E - [facility] Trash Bin Stable for 28 days at room temperatur e Expires in days from ____Date Dextrose 2017-02 No 25 gm, 50 Truong martha 50% Syringe 1-11 mL, Route: l 17:50: IVP, Drug Form: INJ, Dosing Weight 104.545, kg, PRN, PRN Blood Glucose Results, Start date: 12/29/17 11:50:00 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, 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 day, Stop date: 01/28/18 11:49:00 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 Glucagon 2017-02 No 1 mg, Memoria 02-28 Route: IM, l 17:50: Drug form: PDR/INJ, PRN, Dosing Weight 104.545, kg, PRN Blood Glucose Results, Start date: 12/29/17 11:50:00 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, 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 day, Stop date: 01/28/18 11:49:00 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 Omeprazole 2017-02 No 40 mg, Memor ia 02-28 Route: PO, l 15:00: Drug form: Dime Box DRC, Daily, Dosing Weight 104.545, kg, Start date: 12/29/17 9:00:00 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, 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 day, Stop date: 01/27/18 9:00:00 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 Omeprazole 2017- No 40 mg, Memor ia 02-28 Route: PO, l 15:00: Drug form: Daryn 00 DRC, Daily, Dosing Weight 104.545, kg, Start date: 12/29/17 9:00:00 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, 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 day, Stop date: 01/27/18 9:00:00 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 Omeprazole 2017- No 40 mg, Memor ia 1-11 Route: PO, l 15:00: Drug form: Dime Box 00 DRC, Daily, Dosing Weight 104.545, kg, Start date: 12/29/17 9:00:00 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, 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 day, Stop date: 01/27/18 9:00:00 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 Omeprazole 2018-1 No 40 mg, Memor ia 1-11 Route: PO, l 15:00: Drug form: Dime Box 00 DRC, Daily, Dosing Weight 104.545, kg, Start date: 12/29/17 9:00:00 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, 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 day, Stop date: 01/27/18 9:00:00 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 Omeprazole 2018-1 No 40 mg, Memor ia 1-11 Route: PO, l 15:00: Drug form: Daryn 00 DRC, Daily, Dosing Weight 104.545, kg, Start date: 12/29/17 9:00:00 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, 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 day, Stop date: 01/27/18 9:00:00 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 Omeprazole 2018-1 No 40 mg, Memor ia 1-11 Route: PO, l 15:00: Drug form: Daryn 00 DRC, Daily, Dosing Weight 104.545, kg, Start date: 12/29/17 9:00:00 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, 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 day, Stop date: 01/27/18 9:00:00 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 Omeprazole 2018-1 No 40 mg, Memor ia 1-11 Route: PO, l 15:00: Drug form: Dime Box 00 DRC, Daily, Dosing Weight 104.545, kg, Start date: 12/29/17 9:00:00 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, 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 day, Stop date: 01/27/18 9:00:00 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 Protonix 2018-1 No Notes: Memoria 1-11 Tablet l 13:30: should not Daryn 00 be chewed or crushed. (Same as: Protonix) Protonix 2018- No Notes: Memoria 1-11 Tablet l 13:30: should not Daryn 00 be chewed or crushed. (Same as: Protonix) Protonix 2018- No Notes: Memoria 1-11 Tablet l 13:30: should not Daryn 00 be chewed or crushed. (Same as: Protonix) Protonix 2018- No Notes: Memoria 1-11 Tablet l 13:30: should not Daryn 00 be chewed or crushed. (Same as: Protonix) Protonix 2017-02 No Notes: Memoria 1-11 Tablet l 13:30: should not Dime Box 00 be chewed or crushed. (Same as: Protonix) Protonix 2017-02 No Notes: Memoria 1-11 Tablet l 13:30: should not Dime Box 00 be chewed or crushed. (Same as: Protonix) Protonix 2017-02 No Notes: Memoria 1-11 Tablet l 13:30: should not Daryn 00 be chewed or crushed. (Same as: Protonix) magnesium 2017-02 No Notes: Memori a citrate 1-11 (Same as: l 58.2 MG/ML 13:27: Citrate of H ermann Oral 00 Magnesia) Solution Concentrat ion: 1.745 gm / 30 mL magnesium 2017-02 No Notes: Memori a citrate 1-11 (Same as: l 58.2 MG/ML 13:27: Citrate of H ermann Oral 00 Magnesia) Solution Concentrat ion: 1.745 gm / 30 mL magnesium 2017-02 No Notes: Memori a citrate 1-11 (Same as: l 58.2 MG/ML 13:27: Citrate of H ermann Oral 00 Magnesia) Solution Concentrat ion: 1.745 gm / 30 mL magnesium 2017-02 No Notes: Memori a citrate 1-11 (Same as: l 58.2 MG/ML 13:27: Citrate of H ermann Oral 00 Magnesia) Solution Concentrat ion: 1.745 gm / 30 mL magnesium 2017-02 No Notes: Memori a citrate 1-11 (Same as: l 58.2 MG/ML 13:27: Citrate of H ermann Oral 00 Magnesia) Solution Concentrat ion: 1.745 gm / 30 mL magnesium 2017-02 No Notes: Memori a citrate 1-11 (Same as: l 58.2 MG/ML 13:27: Citrate of H ermann Oral 00 Magnesia) Solution Concentrat ion: 1.745 gm / 30 mL magnesium 2017-02 No Notes: Memori a citrate 1-11 (Same as: l 58.2 MG/ML 13:27: Citrate of H ermann Oral 00 Magnesia) Solution Concentrat ion: 1.745 gm / 30 mL Lovenox 2017-02 No Notes: Memoria 1-11 (Same as: l 13:00: Lovenox) Daryn 00 Lovenox 2017-02 No Notes: Memoria 1-11 (Same as: l 13:00: Lovenox) Dime Box 00 Lovenox 2017-02 No Notes: Memoria 1-11 (Same as: l 13:00: Lovenox) Dime Box 00 Lovenox 2017-02 No Notes: Memoria 1-11 (Same as: l 13:00: Lovenox) Daryn Lovenox 2017-02 No Notes: Memoria 1-11 (Same as: l 13:00: Lovenox) Dime Box Lovenox 2017-02 No Notes: Memoria 1-11 (Same as: l 13:00: Lovenox) Daryn Lovenox 2017-02 No Notes: Memoria 1-11 (Same as: l 13:00: Lovenox) Dime Box 00 timolol 2017-02 No Notes: Memoria ophthalmic -11 (Same As: l 0.5% 03:00: Timoptic, Dime Box solution 00 Betimol) Brimonidine 2017-02 No 1 drp, Truong martha tartrate 2 02-28 Route: l MG/ML / 03:00: BOTH EYES, Herm maggie Timolol 5 00 Q12H, Drug MG/ML form: Ophthalmic SOLN, Solution Start [Combigan] date: 12/28/17 21:00:00 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, 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 day, Stop date: 01/27/18 9:00:00 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 Alphagan P 2017-02 No Notes: Memor ia 0.1% -11 (Same As: l ophthalmic 03:00: Alphagan) He rmann solution 00 Saline 2017-02 No Notes: Memoria Flush 0.9% -11 (Same as: l 03:00: BD Dime Box 00 Posiflush) sennosides, 2017-02 No Notes: Truong martha LONGTERM -11 (Same as: l 03:00: Senokot) Daryn 00 Docusate 2017-02 No Notes: Memoria 1-11 (Same as: l 03:00: Colace) Daryn 00 (Do Not Crush) Simvastatin 2017-02 No Notes: Truong martha 1-11 (Same as: l 03:00: Zocor) Daryn 00 timolol 2017-02 No Notes: Memoria ophthalmic 1-11 (Same As: l 0.5% 03:00: Timoptic, Daryn solution 00 Betimol) Brimonidine 2017-02 No 1 drp, Truong martha tartrate 2 - Route: l MG/ML / 03:00: BOTH EYES, Herm maggie Timolol 5 00 Q12H, Drug MG/ML form: Ophthalmic SOLN, Solution Start [Combigan] date: 12/28/17 21:00:00 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, 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 day, Stop date: 01/27/18 9:00:00 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 Alphagan P 2017-02 No Notes: Memor ia 0.1% 1-11 (Same As: l ophthalmic 03:00: Alphagan) He rmann solution 00 Saline 2017-02 No Notes: Memoria Flush 0.9% 1-11 (Same as: l 03:00: BD Dime Box 00 Posiflush) [facility], 2017-02 No Notes: Truong martha LONGTERM 1-11 (Same as: l 03:00: Senokot) Daryn 00 Docusate 2017-02 No Notes: Memoria 1-11 (Same as: l 03:00: Colace) Dime Box 00 (Do Not Crush) Simvastatin 2017-02 No Notes: Truong martha 1-11 (Same as: l 03:00: Zocor) Dime Box 00 timolol 2017-02 No Notes: Memoria ophthalmic 1-11 (Same As: l 0.5% 03:00: Timoptic, Dime Box solution 00 Betimol) Brimonidine 2017-02 No 1 drp, Truong martha tartrate 2 02-28 Route: l MG/ML / 03:00: BOTH EYES, Herm maggie Timolol 5 00 Q12H, Drug MG/ML form: Ophthalmic SOLN, Solution Start [Combigan] date: 12/28/17 21:00:00 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, 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 day, Stop date: 01/27/18 9:00:00 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 Alphagan P 2017-02 No Notes: Memor ia 0.1% 1-11 (Same As: l ophthalmic 03:00: Alphagan) He rmann solution 00 Saline 2017-02 No Notes: Memoria Flush 0.9% 1-11 (Same as: l 03:00: BD Daryn 00 Posiflush) sennosides, 2017-02 No Notes: Truong martha LONGTERM 1-11 (Same as: l 03:00: Senokot) Daryn 00 Docusate 2017-02 No Notes: Memoria 1-11 (Same as: l 03:00: Colace) Dime Box 00 (Do Not Crush) Simvastatin 2017-02 No Notes: Truong martha 1-11 (Same as: l 03:00: Zocor) Daryn 00 timolol 2017-02 No Notes: Memoria ophthalmic 1-11 (Same As: l 0.5% 03:00: Timoptic, Dime Box solution 00 Betimol) Brimonidine 2017-02 No 1 drp, Truong martha tartrate 2 02-28 Route: l MG/ML / 03:00: BOTH EYES, Herm maggie Timolol 5 00 Q12H, Drug MG/ML form: Ophthalmic SOLN, Solution Start [Combigan] date: 12/28/17 21:00:00 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, 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 day, Stop date: 01/27/18 9:00:00 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 Alphagan P 2017-02 No Notes: Memor ia 0.1% 1-11 (Same As: l ophthalmic 03:00: Alphagan) He rmann solution 00 Saline 2017-02 No Notes: Memoria Flush 0.9% 1-11 (Same as: l 03:00: BD Daryn 00 Posiflush) [facility], 2017-02 No Notes: Truong martha LONGTERM 1-11 (Same as: l 03:00: Senokot) Daryn 00 Docusate 2017-02 No Notes: Memoria 1-11 (Same as: l 03:00: Colace) Daryn 00 (Do Not Crush) Simvastatin 2017-02 No Notes: Truong martha 1-11 (Same as: l 03:00: Zocor) Dime Box 00 timolol 2017-02 No Notes: Memoria ophthalmic 1-11 (Same As: l 0.5% 03:00: Timoptic, Dime Box solution 00 Betimol) Brimonidine 2017-02 No 1 drp, Truong martha tartrate 2 02-28 Route: l MG/ML / 03:00: BOTH EYES, Herm maggie Timolol 5 00 Q12H, Drug MG/ML form: Ophthalmic SOLN, Solution Start [Combigan] date: 12/28/17 21:00:00 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, 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 day, Stop date: 01/27/18 9:00:00 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 Alphagan P 2017-02 No Notes: Memor ia 0.1% 1-11 (Same As: l ophthalmic 03:00: Alphagan) He rmann solution 00 Saline 2017-02 No Notes: Memoria Flush 0.9% 1-11 (Same as: l 03:00: BD Dime Box 00 Posiflush) sennosides, 2017-02 No Notes: Truong martha LONGTERM 1-11 (Same as: l 03:00: Senokot) Dime Box 00 Docusate 2017-02 No Notes: Memoria 1-11 (Same as: l 03:00: Colace) Daryn 00 (Do Not Crush) Simvastatin 2017-02 No Notes: Truong martha 1-11 (Same as: l 03:00: Zocor) Dime Box 00 timolol 2017-02 No Notes: Memoria ophthalmic 1-11 (Same As: l 0.5% 03:00: Timoptic, Dime Box solution 00 Betimol) Brimonidine 2017-02 No 1 drp, Truong martha tartrate 2 02-28 Route: l MG/ML / 03:00: BOTH EYES, Herm maggie Timolol 5 00 Q12H, Drug MG/ML form: Ophthalmic SOLN, Solution Start [Combigan] date: 12/28/17 21:00:00 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, 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 day, Stop date: 01/27/18 9:00:00 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 Alphagan P 2017-02 No Notes: Memor ia 0.1% 1-11 (Same As: l ophthalmic 03:00: Alphagan) He rmann solution 00 Saline 2017-02 No Notes: Memoria Flush 0.9% 1-11 (Same as: l 03:00: BD Daryn 00 Posiflush) sennosides, 2017-02 No Notes: Truong martha LONGTERM 1-11 (Same as: l 03:00: Senokot) Dime Box 00 Docusate 2017-02 No Notes: Memoria 1-11 (Same as: l 03:00: Colace) Dime Box 00 (Do Not Crush) Simvastatin 2017-02 No Notes: Truong martha 1-11 (Same as: l 03:00: Zocor) Dime Box 00 timolol 2017-02 No Notes: Memoria ophthalmic 1-11 (Same As: l 0.5% 03:00: Timoptic, Daryn solution 00 Betimol) Brimonidine 2017-02 No 1 drp, Truong martha tartrate 2 1-11 Route: l MG/ML / 03:00: BOTH EYES, Herm maggie Timolol 5 00 Q12H, Drug MG/ML form: Ophthalmic SOLN, Solution Start [Combigan] date: 12/28/17 21:00:00 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, 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 day, Stop date: 01/27/18 9:00:00 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 Alphagan P 2017-02 No Notes: Memor ia 0.1% 1-11 (Same As: l ophthalmic 03:00: Alphagan) He rmann solution 00 Saline 2017-02 No Notes: Memoria Flush 0.9% 1-11 (Same as: l 03:00: BD Daryn Posiflush) sennosides, 2017-02 No Notes: Truong martha LONGTERM 1-11 (Same as: l 03:00: Senokot) Daryn 00 Docusate 2017-02 No Notes: Memoria 1-11 (Same as: l 03:00: Colace) Daryn 00 (Do Not Crush) Simvastatin 2017-02 No Notes: Truong martha 1-11 (Same as: l 03:00: Zocor) Dime Box 00 gabapentin 2017-02 No Notes: Memor ia 300 MG Oral 1-10 (Same as: l Capsule 23:00: Neurontin) Herm maggie gabapentin 2017-02 No Notes: Memor ia 300 MG Oral 1-10 (Same as: l Capsule 23:00: Neurontin) Herm maggie gabapentin 2017-02 No Notes: Memor ia 300 MG Oral 1-10 (Same as: l Capsule 23:00: Neurontin) Herm maggie gabapentin 2017-02 No Notes: Memor ia 300 MG Oral 1-10 (Same as: l Capsule 23:00: Neurontin) Herm maggie gabapentin 2017-02 No Notes: Memor ia 300 MG Oral 1-10 (Same as: l Capsule 23:00: Neurontin) Herm maggie gabapentin 2017-02 No Notes: Memor ia 300 MG Oral 1-10 (Same as: l Capsule 23:00: Neurontin) Herm maggie gabapentin 2017- No Notes: Memor ia 300 MG Oral 1-10 (Same as: l Capsule 23:00: Neurontin) Herm maggie Dilaudid 2017- No 0.5 mg, Memori a 1-10 Route: l 19:30: IVP, ONCE, Daryn 00 Dosing Weight 104.545, kg, Priority: STAT, Start date: 12/28/17 13:30:00 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, Stop date: 12/28/17 13:30:00 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 Dilaudid 2017- No 0.5 mg, Memori a 1-10 Route: l 19:30: IVP, ONCE, Dime Box 00 Dosing Weight 104.545, kg, Priority: STAT, Start date: 12/28/17 13:30:00 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, Stop date: 12/28/17 13:30:00 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 Dilaudid 2017- No 0.5 mg, Memori a 1-10 Route: l 19:30: IVP, ONCE, Daryn 00 Dosing Weight 104.545, kg, Priority: STAT, Start date: 12/28/17 13:30:00 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, Stop date: 12/28/17 13:30:00 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 Dilaudid 2017-1 No 0.5 mg, Memori a 1-10 Route: l 19:30: IVP, ONCE, Dime Box 00 Dosing Weight 104.545, kg, Priority: STAT, Start date: 12/28/17 13:30:00 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, Stop date: 12/28/17 13:30:00 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 Dilaudid 2017-1 No 0.5 mg, Memori a 1-10 Route: l 19:30: IVP, ONCE, Dime Box 00 Dosing Weight 104.545, kg, Priority: STAT, Start date: 12/28/17 13:30:00 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, Stop date: 12/28/17 13:30:00 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 Dilaudid 2017-1 No 0.5 mg, Memori a 1-10 Route: l 19:30: IVP, ONCE, Daryn 00 Dosing Weight 104.545, kg, Priority: STAT, Start date: 12/28/17 13:30:00 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, Stop date: 12/28/17 13:30:00 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 Dilaudid 2017-02 No 0.5 mg, Memori a 1-10 Route: l 19:30: IVP, ONCE, Dosing Weight 104.545, kg, Priority: STAT, Start date: 12/28/17 13:30:00 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, Stop date: 12/28/17 13:30:00 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 tizanidine 2017-02 No Notes: Memor ia 1-10 (Same As: l 19:02: Zanaflex) Saline 2017-02 No Notes: Memoria Flush 0.9% 1-10 (Same as: l 19:02: BD Posiflush) Hydralazine 2017-02 No Notes: Truong martha 1-10 (Same as: l 19:02: Apresoline ) Push over 5 minutes Benadryl 2017-02 No Notes: Memoria 1-10 (Same as: l 19:02: Benadryl) Melatonin 2017-02 No Notes: Memori a 1-10 (Same as: l 19:02: Melatonin) phenol 2017-02 No Notes: Memoria 1-10 Chlorasept l 19:02: ic Castell (Same as: Chlorasept ic, Sore Throat Castell) WASTE: F/P - Black; E - Municipal Trash Bin Labetalol 2017-02 No Notes: Memori a 1-10 (Same as: l 19:02: Normodyne, Trandate) Push over 2 minutes Give bolus over 2-3 minutes. Acetaminoph 2017-02 No Notes: Do M emoria en 325 MG / 1-10 not exceed l Hydrocodone 19:02: 4gm/day of Bitartrate 00 acetaminop 10 MG Oral hen. (Same Tablet as: [place] 325/10) Metoclopram 2017-02 No Notes: Truong martha fiona 1-10 (Same as: l 19:02: Reglan) Ondansetron 2017-02 No Notes: Truong martha 1-10 (Same as: l 19:02: Zofran) MEDICATION WASTE Product Size: 4 mg Product Wasted: ___ mg Hydromorpho 2017-02 No Notes: Truong martha ne 1-10 Same as l 19:02: Dilaudid Dime Box 00 Bisacodyl 2017-02 No Notes: Memori a 1-10 (Same As: l 19:02: Dulcolax, Daryn 00 Bisco-Lax) tizanidine 2017-02 No Notes: Memor ia 1-10 (Same As: l 19:02: Zanaflex) Daryn 00 Saline 2017-02 No Notes: Memoria Flush 0.9% 1-10 (Same as: l 19:02: BD Dime Box 00 Posiflush) Hydralazine 2017-02 No Notes: Truong martha 1-10 (Same as: l 19:02: Apresoline ) Push over 5 minutes Benadryl 2017-02 No Notes: Memoria 1-10 (Same as: l 19:02: Benadryl) Melatonin 2017-02 No Notes: Memori a 1-10 (Same as: l 19:02: Melatonin) phenol 2017-02 No Notes: Memoria 1-10 Chlorasept l 19:02: ic Castell (Same as: Chlorasept ic, Sore Throat Castell) WASTE: F/P - Black; E - Municipal Trash Bin Labetalol 2017-02 No Notes: Memori a 1-10 (Same as: l 19:02: Normodyne, Trandate) Push over 2 minutes Give bolus over 2-3 minutes. Acetaminoph 2017-02 No Notes: Do M emoria en 325 MG / 1-10 not exceed l Hydrocodone 19:02: 4gm/day of Bitartrate 00 acetaminop 10 MG Oral hen. (Same Tablet as: [place] 325/10) Metoclopram 2017-02 No Notes: Truong martha fiona 1-10 (Same as: l 19:02: Reglan) Ondansetron 2017-02 No Notes: Truong martha 1-10 (Same as: l 19:02: Zofran) MEDICATION WASTE Product Size: 4 mg Product Wasted: ___ mg Hydromorpho 2017-02 No Notes: Truong martha ne 1-10 Same as l 19:02: Dilaudid Bisacodyl 2017-02 No Notes: Memori a 1-10 (Same As: l 19:02: Dulcolax, Dime Box 00 Bisco-Lax) tizanidine 2017-02 No Notes: Memor ia 1-10 (Same As: l 19:02: Zanaflex) Dime Box 00 Saline 2017-02 No Notes: Memoria Flush 0.9% 1-10 (Same as: l 19:02: BD Daryn 00 Posiflush) Hydralazine 2017-02 No Notes: Truong martha 1-10 (Same as: l 19:02: Apresoline ) Push over 5 minutes Benadryl 2017-02 No Notes: Memoria 1-10 (Same as: l 19:02: Benadryl) Melatonin 2017-02 No Notes: Memori a 1-10 (Same as: l 19:02: Melatonin) phenol 2017-02 No Notes: Memoria 1-10 Chlorasept l 19:02: ic Castell (Same as: Chlorasept ic, Sore Throat Castell) WASTE: F/P - Black; E - Municipal Trash Bin Labetalol 2017-02 No Notes: Memori a 1-10 (Same as: l 19:02: Normodyne, Trandate) Push over 2 minutes Give bolus over 2-3 minutes. Acetaminoph 2017-02 No Notes: Do M emoria en 325 MG / 1-10 not exceed l Hydrocodone 19:02: 4gm/day of Bitartrate 00 acetaminop 10 MG Oral hen. (Same Tablet as: [place] 325/10) Metoclopram 2017-02 No Notes: Truong martha fiona 1-10 (Same as: l 19:02: Reglan) Ondansetron 2017-02 No Notes: Truong martha 1-10 (Same as: l 19:02: Zofran) MEDICATION WASTE Product Size: 4 mg Product Wasted: ___ mg Hydromorpho 2017-02 No Notes: Truong martha ne 1-10 Same as l 19:02: Dilaudid Bisacodyl 2017-02 No Notes: Memori a 1-10 (Same As: l 19:02: Dulcolax, Daryn 00 Bisco-Lax) tizanidine 2017-02 No Notes: Memor ia 1-10 (Same As: l 19:02: Zanaflex) Saline 2017-02 No Notes: Memoria Flush 0.9% 1-10 (Same as: l 19:02: BD Posiflush) Hydralazine 2017-02 No Notes: Truong martha 1-10 (Same as: l 19:02: Apresoline ) Push over 5 minutes Benadryl 2017-02 No Notes: Memoria 1-10 (Same as: l 19:02: Benadryl) Melatonin 2017-02 No Notes: Memori a 1-10 (Same as: l 19:02: Melatonin) phenol 2017-02 No Notes: Memoria 1-10 Chlorasept l 19:02: ic Castell (Same as: Chlorasept ic, Sore Throat Castell) WASTE: F/P - Black; E - Municipal Trash Bin Labetalol 2017-02 No Notes: Memori a 1-10 (Same as: l 19:02: Normodyne, Trandate) Push over 2 minutes Give bolus over 2-3 minutes. Acetaminoph 2017-02 No Notes: Do M emoria en 325 MG / 1-10 not exceed l Hydrocodone 19:02: 4gm/day of Bitartrate 00 acetaminop 10 MG Oral hen. (Same Tablet as: [place] 325/10) Metoclopram 2017-02 No Notes: Truong martha fiona 1-10 (Same as: l 19:02: Reglan) Ondansetron 2017-02 No Notes: Truong martha 1-10 (Same as: l 19:02: Zofran) MEDICATION WASTE Product Size: 4 mg Product Wasted: ___ mg Hydromorpho 2017-02 No Notes: Truong marhta ne 1-10 Same as l 19:02: Dilaudid Bisacodyl 2017-02 No Notes: Memori a 1-10 (Same As: l 19:02: Dulcolax, Bisco-Lax) tizanidine 2017-02 No Notes: Memor ia 1-10 (Same As: l 19:02: Zanaflex) Saline 2017-02 No Notes: Memoria Flush 0.9% 1-10 (Same as: l 19:02: BD Posiflush) Hydralazine 2017-02 No Notes: Truong martha 1-10 (Same as: l 19:02: Apresoline ) Push over 5 minutes Benadryl 2017-02 No Notes: Memoria 1-10 (Same as: l 19:02: Benadryl) Melatonin 2017-02 No Notes: Memori a 1-10 (Same as: l 19:02: Melatonin) phenol 2017-02 No Notes: Memoria 1-10 Chlorasept l 19:02: ic Castell (Same as: Chlorasept ic, Sore Throat Castell) WASTE: F/P - Black; E - Municipal Trash Bin Labetalol 2017-02 No Notes: Memori a 1-10 (Same as: l 19:02: Normodyne, Trandate) Push over 2 minutes Give bolus over 2-3 minutes. Acetaminoph 2017-02 No Notes: Do M emoria en 325 MG / 1-10 not exceed l Hydrocodone 19:02: 4gm/day of Bitartrate 00 acetaminop 10 MG Oral hen. (Same Tablet as: [place] 325/10) Metoclopram 2017-02 No Notes: Truong martha fiona 1-10 (Same as: l 19:02: Reglan) Ondansetron 2017-02 No Notes: Truong martha 1-10 (Same as: l 19:02: Zofran) MEDICATION WASTE Product Size: 4 mg Product Wasted: ___ mg Hydromorpho 2017-02 No Notes: Truong martha ne 1-10 Same as l 19:02: Dilaudid Bisacodyl 2017-02 No Notes: Memori a 1-10 (Same As: l 19:02: Dulcolax, Bisco-Lax) tizanidine 2017-02 No Notes: Memor ia 1-10 (Same As: l 19:02: Zanaflex) Saline 2017-02 No Notes: Memoria Flush 0.9% 1-10 (Same as: l 19:02: BD Dime Box 00 Posiflush) Hydralazine 2017-02 No Notes: Truong martha 1-10 (Same as: l 19:02: Apresoline ) Push over 5 minutes Benadryl 2017-02 No Notes: Memoria 1-10 (Same as: l 19:02: Benadryl) Melatonin 2017-02 No Notes: Memori a 1-10 (Same as: l 19:02: Melatonin) Daryn 00 phenol 2017-02 No Notes: Memoria 1-10 Chlorasept l 19:02: ic Castell (Same as: Chlorasept ic, Sore Throat Castell) WASTE: F/P - Black; E - Municipal Trash Bin Labetalol 2017-02 No Notes: Memori a 1-10 (Same as: l 19:02: Normodyne, Trandate) Push over 2 minutes Give bolus over 2-3 minutes. Acetaminoph 2017-02 No Notes: Do M emoria en 325 MG / 1-10 not exceed l Hydrocodone 19:02: 4gm/day of Bitartrate 00 acetaminop 10 MG Oral hen. (Same Tablet as: [place] 325/10) Metoclopram 2017-02 No Notes: Truong martha fiona 1-10 (Same as: l 19:02: Reglan) Ondansetron 2017-02 No Notes: Truong martha 1-10 (Same as: l 19:02: Zofran) MEDICATION WASTE Product Size: 4 mg Product Wasted: ___ mg Hydromorpho 2017-02 No Notes: Truong martha ne 1-10 Same as l 19:02: Dilaudid Bisacodyl 2017-02 No Notes: Memori a 1-10 (Same As: l 19:02: Dulcolax, Bisco-Lax) tizanidine 2017-02 No Notes: Memor ia 1-10 (Same As: l 19:02: Zanaflex) Saline 2017-02 No Notes: Memoria Flush 0.9% 1-10 (Same as: l 19:02: BD Dime Box 00 Posiflush) Hydralazine 2017-02 No Notes: Truong martha 1-10 (Same as: l 19:02: Apresoline ) Push over 5 minutes Benadryl 2017-02 No Notes: Memoria 1-10 (Same as: l 19:02: Benadryl) Melatonin 2017-02 No Notes: Memori a 1-10 (Same as: l 19:02: Melatonin) phenol 2017-02 No Notes: Memoria 1-10 Chlorasept l 19:02: ic Castell (Same as: Chlorasept ic, Sore Throat Castell) WASTE: F/P - Black; E - Municipal Trash Bin Labetalol 2017-02 No Notes: Memori a 1-10 (Same as: l 19:02: Normodyne, Trandate) Push over 2 minutes Give bolus over 2-3 minutes. Acetaminoph 2017-02 No Notes: Do M emoria en 325 MG / 1-10 not exceed l Hydrocodone 19:02: 4gm/day of Bitartrate 00 acetaminop 10 MG Oral hen. (Same Tablet as: [place] 325/10) Metoclopram 2017-02 No Notes: Truong martha fiona 1-10 (Same as: l 19:02: Reglan) Ondansetron 2017-02 No Notes: Truong martha 1-10 (Same as: l 19:02: Zofran) MEDICATION WASTE Product Size: 4 mg Product Wasted: ___ mg Hydromorpho 2017-02 No Notes: Truong martha ne 1-10 Same as l 19:02: Dilaudid Bisacodyl 2017-02 No Notes: Memori a 1-10 (Same As: l 19:02: Dulcolax, Bisco-Lax) Lovenox 2017-02 No Notes: Memoria 1-10 (Same as: l 15:00: Lovenox) Omeprazole 2017-02 No 40 mg, Memor ia 1-10 Route: PO, l 15:00: Drug form: DRC, Daily, Dosing Weight 104.545, kg, Start date: 12/28/17 9:00:00 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, 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 day, Stop date: 01/26/18 9:00:00 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 Losartan 2017-02 No Notes: Memoria 1-10 (Same as: l 15:00: Cozaar) Bacitracin 2017-02 No Notes: Memor ia 0.5 UNT/MG 1-10 (Same As: l / Polymyxin 15:00: Polysporin Darny B 10 UNT/MG 00 ) Topical Ointment Lovenox 2017-02 No Notes: Memoria 1-10 (Same as: l 15:00: Lovenox) Omeprazole 2017-02 No 40 mg, Memor ia 1-10 Route: PO, l 15:00: Drug form: Dime Box 00 DRC, Daily, Dosing Weight 104.545, kg, Start date: 12/28/17 9:00:00 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, 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 day, Stop date: 01/26/18 9:00:00 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 Losartan 2017-02 No Notes: Memoria 1-10 (Same as: l 15:00: Cozaar) Bacitracin 2017-02 No Notes: Memor ia 0.5 UNT/MG 1-10 (Same As: l / Polymyxin 15:00: Polysporin Dime Box B 10 UNT/MG 00 ) Topical Ointment Lovenox 2017-02 No Notes: Memoria 1-10 (Same as: l 15:00: Lovenox) Omeprazole 2017-02 No 40 mg, Memor ia 1-10 Route: PO, l 15:00: Drug form: Daryn 00 DRC, Daily, Dosing Weight 104.545, kg, Start date: 12/28/17 9:00:00 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, 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 day, Stop date: 01/26/18 9:00:00 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 Losartan 2017-02 No Notes: Memoria 1-10 (Same as: l 15:00: Cozaar) Bacitracin 2017-02 No Notes: Memor ia 0.5 UNT/MG 1-10 (Same As: l / Polymyxin 15:00: Polysporin Dime Box B 10 UNT/MG 00 ) Topical Ointment Lovenox 2017-02 No Notes: Memoria 1-10 (Same as: l 15:00: Lovenox) Omeprazole 2017-02 No 40 mg, Memor ia 1-10 Route: PO, l 15:00: Drug form: Dime Box 00 DRC, Daily, Dosing Weight 104.545, kg, Start date: 12/28/17 9:00:00 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, 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 day, Stop date: 01/26/18 9:00:00 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 Losartan 2017-02 No Notes: Memoria 1-10 (Same as: l 15:00: Cozaar) Bacitracin 2017-02 No Notes: Memor ia 0.5 UNT/MG 1-10 (Same As: l / Polymyxin 15:00: Polysporin Daryn B 10 UNT/MG 00 ) Topical Ointment Lovenox 2017-02 No Notes: Memoria 1-10 (Same as: l 15:00: Lovenox) Omeprazole 2017-02 No 40 mg, Memor ia 1-10 Route: PO, l 15:00: Drug form: Daryn 00 DRC, Daily, Dosing Weight 104.545, kg, Start date: 12/28/17 9:00:00 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, 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 day, Stop date: 01/26/18 9:00:00 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 Losartan 2017-02 No Notes: Memoria 1-10 (Same as: l 15:00: Cozaar) Bacitracin 2017-02 No Notes: Memor ia 0.5 UNT/MG 1-10 (Same As: l / Polymyxin 15:00: Polysporin Daryn B 10 UNT/MG 00 ) Topical Ointment Lovenox 2017-02 No Notes: Memoria 1-10 (Same as: l 15:00: Lovenox) Omeprazole 2017-02 No 40 mg, Memor ia 1-10 Route: PO, l 15:00: Drug form: Daryn 00 DRC, Daily, Dosing Weight 104.545, kg, Start date: 12/28/17 9:00:00 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, 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 day, Stop date: 01/26/18 9:00:00 KNAPSACK SPRAYER Losartan 2017-02 No Notes: Memoria 1-10 (Same as: l 15:00: Cozaar) Bacitracin 2017-02 No Notes: Memor ia 0.5 UNT/MG 1-10 (Same As: l / Polymyxin 15:00: Polysporin Dime Box B 10 UNT/MG 00 ) Topical Ointment Lovenox 2017-02 No Notes: Memoria 1-10 (Same as: l 15:00: Lovenox) Dime Box Omeprazole 2017-02 No 40 mg, Memor ia 1-10 Route: PO, l 15:00: Drug form: Daryn 00 DRC, Daily, Dosing Weight 104.545, kg, Start date: 12/28/17 9:00:00 KNAPSACK SPRAYER, 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 day, Stop date: 01/26/18 9:00:00 KNAPSACK SPRAYER Losartan 2017-02 No Notes: Memoria 1-10 (Same as: l 15:00: Cozaar) Dime Box 00 Bacitracin 2017-02 No Notes: Memor ia 0.5 UNT/MG 1-10 (Same As: l / Polymyxin 15:00: Polysporin Dime Box B 10 UNT/MG 00 ) Topical Ointment Protonix 2017-02 No Notes: Memoria 1-10 Tablet l 13:30: should not Daryn 00 be chewed or crushed. (Same as: Protonix) Protonix 2017-02 No Notes: Memoria 1-10 Tablet l 13:30: should not Daryn 00 be chewed or crushed. (Same as: Protonix) Protonix 2017-02 No Notes: Memoria 1-10 Tablet l 13:30: should not Daryn 00 be chewed or crushed. (Same as: Protonix) Protonix 2017-02 No Notes: Memoria 1-10 Tablet l 13:30: should not Dime Box 00 be chewed or crushed. (Same as: Protonix) Protonix 2017-02 No Notes: Memoria 1-10 Tablet l 13:30: should not Dime Box 00 be chewed or crushed. (Same as: Protonix) Protonix 2017-02 No Notes: Memoria 1-10 Tablet l 13:30: should not Daryn 00 be chewed or crushed. (Same as: Protonix) Protonix 2017-02 No Notes: Memoria 1-10 Tablet l 13:30: should not Dime Box 00 be chewed or crushed. (Same as: Protonix) Cefazolin 2017-02 No Notes: Memori a 1-10 (Same as l 04:00: Ancef) Daryn 00 Cefazolin 2017-02 No Notes: Memori a 1-10 (Same as l 04:00: Ancef) Cefazolin 2017-02 No Notes: Memori a 1-10 (Same as l 04:00: Ancef) Cefazolin 2017-02 No Notes: Memori a 1-10 (Same as l 04:00: Ancef) Cefazolin 2017-02 No Notes: Memori a 1-10 (Same as l 04:00: Ancef) Cefazolin 2017-02 No Notes: Memori a 1-10 (Same as l 04:00: Ancef) Cefazolin 2017-02 No Notes: Memori a 1-10 (Same as l 04:00: Ancef) Saline 2017-02 No Notes: Memoria Flush 0.9% 1-10 (Same as: l 03:00: BD Dime Box 00 Posiflush) metoprolol 2017-02 No Notes: Memor ia tartrate 1-10 (Same as: l 03:00: Lopressor) timolol 2017-02 No Notes: Memoria ophthalmic 1-10 (Same As: l 0.5% 03:00: Timoptic, Dime Box solution 00 Betimol) Alphagan P 2017-02 No Notes: Memor ia 0.1% 1-10 (Same As: l ophthalmic 03:00: Alphagan) [facility] solution Brimonidine 2017-02 No 1 drp, Truong martha tartrate 2 1-10 Route: l MG/ML / 03:00: BOTH EYES, Herm maggie Timolol 5 00 Q12H, Drug MG/ML form: Ophthalmic SOLN, Solution Start [Combigan] date: 12/27/17 21:00:00 KNAPSACK SPRAYER, 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 day, Stop date: 01/26/18 9:00:00 KNAPSACK SPRAYER Simvastatin 2017-02 No Notes: Truong martha 1-10 (Same as: l 03:00: Zocor) Saline 2017-02 No Notes: Memoria Flush 0.9% 1-10 (Same as: l 03:00: BD Dime Box Posiflush) metoprolol 2017-02 No Notes: Memor ia tartrate 1-10 (Same as: l 03:00: Lopressor) timolol 2017-02 No Notes: Memoria ophthalmic 1-10 (Same As: l 0.5% 03:00: Timoptic, Daryn solution 00 Betimol) Alphagan P 2017-02 No Notes: Memor ia 0.1% 1-10 (Same As: l ophthalmic 03:00: Alphagan) [facility] solution 00 Brimonidine 2017-02 No 1 drp, Truong martha tartrate 2 1-10 Route: l MG/ML / 03:00: BOTH EYES, Herm maggie Timolol 5 00 Q12H, Drug MG/ML form: Ophthalmic SOLN, Solution Start [Combigan] date: 12/27/17 21:00:00 KNAPSACK SPRAYER, 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 day, Stop date: 01/26/18 9:00:00 KNAPSACK SPRAYER Simvastatin 2017-02 No Notes: Truong martha 1-10 (Same as: l 03:00: Zocor) Daryn 00 Saline 2017-02 No Notes: Memoria Flush 0.9% 1-10 (Same as: l 03:00: BD Dime Box 00 Posiflush) metoprolol 2017-02 No Notes: Memor ia tartrate 1-10 (Same as: l 03:00: Lopressor) Daryn 00 timolol 2017-02 No Notes: Memoria ophthalmic 1-10 (Same As: l 0.5% 03:00: Timoptic, Dime Box solution 00 Betimol) Alphagan P 2017-02 No Notes: Memor ia 0.1% 1-10 (Same As: l ophthalmic 03:00: Alphagan) [facility] solution 00 Saline 2017-02 No Notes: Memoria Flush 0.9% 1-10 (Same as: l 03:00: BD Dime Box 00 Posiflush) metoprolol 2017-02 No Notes: Memor ia tartrate 1-10 (Same as: l 03:00: Lopressor) Daryn 00 timolol 2017-02 No Notes: Memoria ophthalmic 1-10 (Same As: l 0.5% 03:00: Timoptic, Daryn solution 00 Betimol) Alphagan P 2017-02 No Notes: Memor ia 0.1% 1-10 (Same As: l ophthalmic 03:00: Alphagan) [facility] solution 00 Brimonidine 2017-02 No 1 drp, Truong martha tartrate 2 1-10 Route: l MG/ML / 03:00: BOTH EYES, Herm maggie Timolol 5 00 Q12H, Drug MG/ML form: Ophthalmic SOLN, Solution Start [Combigan] date: 12/27/17 21:00:00 KNAPSACK SPRAYER, 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 day, Stop date: 01/26/18 9:00:00 KNAPSACK SPRAYER Simvastatin 2017-02 No Notes: Truong martha 1-10 (Same as: l 03:00: Zocor) Daryn Brimonidine 2017-02 No 1 drp, Truong martha tartrate 2 1-10 Route: l MG/ML / 03:00: BOTH EYES, Herm maggie Timolol 5 00 Q12H, Drug MG/ML form: Ophthalmic SOLN, Solution Start [Combigan] date: 12/27/17 21:00:00 KNAPSACK SPRAYER, 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 day, Stop date: 01/26/18 9:00:00 KNAPSACK SPRAYER Simvastatin 2017-02 No Notes: Truong martha 1-10 (Same as: l 03:00: Zocor) Dime Box Saline 2017-02 No Notes: Memoria Flush 0.9% 1-10 (Same as: l 03:00: BD Dime Box Posiflush) metoprolol 2017-02 No Notes: Memor ia tartrate 1-10 (Same as: l 03:00: Lopressor) Dime Box timolol 2017-02 No Notes: Memoria ophthalmic 1-10 (Same As: l 0.5% 03:00: Timoptic, Dime Box solution 00 Betimol) Alphagan P 2017-02 No Notes: Memor ia 0.1% 1-10 (Same As: l ophthalmic 03:00: Alphagan) [facility] Br[facility] 2017-02 No 1 drp, Truong martha tartrate 2 1-10 Route: l MG/ML / 03:00: BOTH EYES, Herm maggie Timolol 5 00 Q12H, Drug MG/ML form: Ophthalmic SOLN, Solution Start [Combigan] date: 12/27/17 21:00:00 KNAPSACK SPRAYER, 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 day, Stop date: 01/26/18 9:00:00 KNAPSACK SPRAYER Simvastatin 2017-02 No Notes: Truong martha 1-10 (Same as: l 03:00: Zocor) Dime Box Saline 2017-02 No Notes: Memoria Flush 0.9% 1-10 (Same as: l 03:00: BD Dime Box 00 Posiflush) metoprolol 2017-02 No Notes: Memor ia tartrate 1-10 (Same as: l 03:00: Lopressor) Daryn 00 timolol 2017-02 No Notes: Memoria ophthalmic 1-10 (Same As: l 0.5% 03:00: Timoptic, Dime Box solution 00 Betimol) Alphagan P 2017-02 No Notes: Memor ia 0.1% 1-10 (Same As: l ophthalmic 03:00: Alphagan) [facility] solution 00 Brimonidine 2017-02 No 1 drp, Truong martha tartrate 2 1-10 Route: l MG/ML / 03:00: BOTH EYES, Herm maggie Timolol 5 00 Q12H, Drug MG/ML form: Ophthalmic SOLN, Solution Start [Combigan] date: 12/27/17 21:00:00 KNAPSACK SPRAYER, 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 day, Stop date: 01/26/18 9:00:00 KNAPSACK SPRAYER Simvastatin 2017-02 No Notes: Truong martha 1-10 (Same as: l 03:00: Zocor) Daryn 00 Saline 2017-02 No Notes: Memoria Flush 0.9% 1-10 (Same as: l 03:00: BD Daryn 00 Posiflush) metoprolol 2017-02 No Notes: Memor ia tartrate 1-10 (Same as: l 03:00: Lopressor) Daryn 00 timolol 2017-02 No Notes: Memoria ophthalmic 1-10 (Same As: l 0.5% 03:00: Timoptic, Daryn solution 00 Betimol) Alphagan P 2017-02 No Notes: Memor ia 0.1% 1-10 (Same As: l ophthalmic 03:00: Alphagan) rmann solution 00 Brimonidine 2017-02 No 1 drp, Truong martha tartrate 2 1-10 Route: l MG/ML / 03:00: BOTH EYES, Herm maggie Timolol 5 00 Q12H, Drug MG/ML form: Ophthalmic SOLN, Solution Start [Combigan] date: 12/27/17 21:00:00 KNAPSACK SPRAYER, 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 day, Stop date: 01/26/18 9:00:00 KNAPSACK SPRAYER Simvastatin 2018-1 No Notes: Truong martha 1-10 (Same as: l 03:00: Zocor) Daryn 00 Dexamethaso 2018-1 No 4 mg, Memor ia ne 1-10 Route: PO, l 00:00: Drug form: Daryn 00 TAB, Q6H, Dosing Weight 104.545, kg, Start date: 12/27/17 18:00:00 KNAPSACK SPRAYER, Duration: 3 day, Stop date: 12/30/17 12:00:00 KNAPSACK SPRAYER Dexamethaso 2018-1 No 4 mg, Memor ia ne 1-10 Route: PO, l 00:00: Drug form: Dime Box 00 TAB, Q6H, Dosing Weight 104.545, kg, Start date: 12/27/17 18:00:00 KNAPSACK SPRAYER, Duration: 3 day, Stop date: 12/30/17 12:00:00 KNAPSACK SPRAYER Dexamethaso 2018-1 No 4 mg, Memor ia ne 1-10 Route: PO, l 00:00: Drug form: Daryn 00 TAB, Q6H, Dosing Weight 104.545, kg, Start date: 12/27/17 18:00:00 KNAPSACK SPRAYER, Duration: 3 day, Stop date: 12/30/17 12:00:00 KNAPSACK SPRAYER Dexamethaso 2018-1 No 4 mg, Memor ia ne 1-10 Route: PO, l 00:00: Drug form: Daryn 00 TAB, Q6H, Dosing Weight 104.545, kg, Start date: 12/27/17 18:00:00 KNAPSACK SPRAYER, Duration: 3 day, Stop date: 12/30/17 12:00:00 KNAPSACK SPRAYER Dexamethaso 2018-1 No 4 mg, Memor ia ne 1-10 Route: PO, l 00:00: Drug form: Dime Box 00 TAB, Q6H, Dosing Weight 104.545, kg, Start date: 12/27/17 18:00:00 KNAPSACK SPRAYER, Duration: 3 day, Stop date: 12/30/17 12:00:00 KNAPSACK SPRAYER Dexamethaso 2018-1 No 4 mg, Memor ia ne 1-10 Route: PO, l 00:00: Drug form: Dime Box 00 TAB, Q6H, Dosing Weight 104.545, kg, Start date: 12/27/17 18:00:00 KNAPSACK SPRAYER, Duration: 3 day, Stop date: 12/30/17 12:00:00 KNAPSACK SPRAYER Dexamethaso 2017-02 No 4 mg, Memor ia ne 02-27 Route: PO, l 00:00: Drug form: Dime Box 00 TAB, Q6H, Dosing Weight 104.545, kg, Start date: 12/27/17 18:00:00 KNAPSACK SPRAYER, Duration: 3 day, Stop date: 12/30/17 12:00:00 KNAPSACK SPRAYER Reglan 2017-02 No Notes: Memoria 1-09 (Same as: l 23:14: Reglan) Dime Box 00 Reglan 2017-02 No Notes: Memoria 1-09 (Same as: l 23:14: Reglan) Dime Box Reglan 2017-02 No Notes: Memoria 1- (Same as: l 23:14: Reglan) Dime Box 00 Reglan 2017-02 No Notes: Memoria 1- (Same as: l 23:14: Reglan) Daryn 00 Reglan 2017-02 No Notes: Memoria 1-09 (Same as: l 23:14: Reglan) Daryn Reglan 2017-02 No Notes: Memoria 1-09 (Same as: l 23:14: Reglan) Daryn Reglan 2017-02 No Notes: Memoria 1-09 (Same as: l 23:14: Reglan) Daryn 00 sennosides, 2017-02 No Notes: Truong martha LONGTERM 02-26 (Same as: l 23:00: Senokot) Daryn 00 Docusate 2017-02 No Notes: Memoria - (Same as: l 23:00: Colace) Dime Box (Do Not Crush) Famotidine 2017-02 No 20 mg, Memor ia 20 MG Oral 02-26 Route: PO, l Tablet 23:00: Drug form: Shea nn 00 TAB, BID, Dosing Weight 104.545, kg, Start date: 12/27/17 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, 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 day, Stop date: 01/26/18 9:00:00 KNAPSACK SPRAYER gabapentin 2017-02 No Notes: Memor ia 300 MG Oral 02-26 (Same as: l Capsule 23:00: Neurontin) Herm sennosides, 2017-02 No Notes: Truong martha LONGTERM 02-26 (Same as: l 23:00: Senokot) Docusate 2017-02 No Notes: Memoria 02-26 (Same as: l 23:00: Colace) (Do Not Crush) Famotidine 2017-02 No 20 mg, Memor ia 20 MG Oral 02-26 Route: PO, l Tablet 23:00: Drug form: Shea nn 00 TAB, BID, Dosing Weight 104.545, kg, Start date: 12/27/17 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, 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 day, Stop date: 01/26/18 9:00:00 KNAPSACK SPRAYER gabapentin 2017-02 No Notes: Memor ia 300 MG Oral 02-26 (Same as: l Capsule 23:00: Neurontin) sennosides, 2017-02 No Notes: Truong martha LONGTERM 02-26 (Same as: l 23:00: Senokot) usate 2017-02 No Notes: Memoria 02-26 (Same as: l 23:00: Colace) (Do Not Crush) Famotidine 2017-02 No 20 mg, Memor ia 20 MG Oral 02-26 Route: PO, l Tablet 23:00: Drug form: Shea nn 00 TAB, BID, Dosing Weight 104.545, kg, Start date: 12/27/17 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, 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 day, Stop date: 01/26/18 9:00:00 KNAPSACK SPRAYER gabapentin 2017-02 No Notes: Memor ia 300 MG Oral 02-26 (Same as: l Capsule 23:00: Neurontin) sennosides, 2017-02 No Notes: Truong martha LONGTERM 02-26 (Same as: l 23:00: Senokot) Docusate 2017-02 No Notes: Memoria 02-26 (Same as: l 23:00: Colace) (Do Not Crush) Famotidine 2017-02 No 20 mg, Memor ia 20 MG Oral 02-26 Route: PO, l Tablet 23:00: Drug form: Shea nn 00 TAB, BID, Dosing Weight 104.545, kg, Start date: 12/27/17 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, 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 day, Stop date: 01/26/18 9:00:00 KNAPSACK SPRAYER gabapentin 2017-02 No Notes: Memor ia 300 MG Oral 02-26 (Same as: l Capsule 23:00: Neurontin) Herm maggie sennosides, 2017-02 No Notes: Truong martha LONGTERM 02-26 (Same as: l 23:00: Senokot) Docusate 2017-02 No Notes: Memoria 02-26 (Same as: l 23:00: Colace) Daryn 00 (Do Not Crush) Famotidine 2017-02 No 20 mg, Memor ia 20 MG Oral 02-26 Route: PO, l Tablet 23:00: Drug form: Shea nn 00 TAB, BID, Dosing Weight 104.545, kg, Start date: 12/27/17 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, 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 day, Stop date: 01/26/18 9:00:00 KNAPSACK SPRAYER gabapentin 2017-02 No Notes: Memor ia 300 MG Oral 02-26 (Same as: l Capsule 23:00: Neurontin) Herm sennosides, 2017-02 No Notes: Truong martha LONGTERM 02-26 (Same as: l 23:00: Senokot) te 2017-02 No Notes: Memoria 02-26 (Same as: l 23:00: Colace) Dime Box 00 (Do Not Crush) Famotidine 2017-02 No 20 mg, Memor ia 20 MG Oral 02-26 Route: PO, l Tablet 23:00: Drug form: Shea nn 00 TAB, BID, Dosing Weight 104.545, kg, Start date: 12/27/17 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, 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 day, Stop date: 01/26/18 9:00:00 KNAPSACK SPRAYER gabapentin 2017-02 No Notes: Memor ia 300 MG Oral 02-26 (Same as: l Capsule 23:00: Neurontin) Herm sennosides, 2017-02 No Notes: Truong martha LONGTERM 02-26 (Same as: l 23:00: Senokot) Daryn 00 Docusate 2017-02 No Notes: Memoria 02-26 (Same as: l 23:00: Colace) Dime Box (Do Not Crush) Famotidine 2017-02 No 20 mg, Memor ia 20 MG Oral 02-26 Route: PO, l Tablet 23:00: Drug form: Shea nn 00 TAB, BID, Dosing Weight 104.545, kg, Start date: 12/27/17 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, 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 day, Stop date: 01/26/18 9:00:00 KNAPSACK SPRAYER gabapentin 2017-02 No Notes: Memor ia 300 MG Oral 02-26 (Same as: l Capsule 23:00: Neurontin) Herm maggie 00 Streptococc 2017-02 No Notes: Truong martha us 02-26 Shake well l pneumoniae 22:46: prior to Her apple serotype 1 23 use (Same capsular as: antigen Prevnar diphtheria 13) [id number] protein conjugate vaccine / Streptococc us pneumoniae serotype 14 capsular antigen diphtheria [id number] protein conjugate vaccine / Streptococc us pneumoniae serotype 18C capsular antigen d Streptococc 2017-02 No Notes: Truong martha us 02-26 Shake well l pneumoniae 22:46: prior to Her apple serotype 1 23 use (Same capsular as: antigen Prevnar diphtheria 13) [id number] protein conjugate vaccine / Streptococc us pneumoniae serotype 14 capsular antigen diphtheria [id number] protein conjugate vaccine / Streptococc us pneumoniae serotype 18C capsular antigen d Streptococc 2017-02 No Notes: Truong martha us 02-26 Shake well l pneumoniae 22:46: prior to Her apple serotype 1 23 use (Same capsular as: antigen Prevnar diphtheria 13) [id number] protein conjugate vaccine / Streptococc us pneumoniae serotype 14 capsular antigen diphtheria [id number] protein conjugate vaccine / Streptococc us pneumoniae serotype 18C capsular antigen d Streptococc 2017-02 No Notes: Truong martha us 02-26 Shake well l pneumoniae 22:46: prior to Her apple serotype 1 23 use (Same capsular as: antigen Prevnar diphtheria 13) [id number] protein conjugate vaccine / Streptococc us pneumoniae serotype 14 capsular antigen diphtheria [id number] protein conjugate vaccine / Streptococc us pneumoniae serotype 18C capsular antigen d Streptococc 2017-02 No Notes: Truong martha us 02-26 Shake well l pneumoniae 22:46: prior to Her apple serotype 1 23 use (Same capsular as: antigen Prevnar diphtheria 13) [id number] protein conjugate vaccine / Streptococc us pneumoniae serotype 14 capsular antigen diphtheria [id number] protein conjugate vaccine / Streptococc us pneumoniae serotype 18C capsular antigen d Streptococc 2017-02 No Notes: Truong martha us 02-26 Shake well l pneumoniae 22:46: prior to Her apple serotype 1 23 use (Same capsular as: antigen Prevnar diphtheria 13) [id number] protein conjugate vaccine / Streptococc us pneumoniae serotype 14 capsular antigen diphtheria [id number] protein conjugate vaccine / Streptococc us pneumoniae serotype 18C capsular antigen d Streptococc 2017-02 No Notes: Truong martha us 02-26 Shake well l pneumoniae 22:46: prior to Her apple serotype 1 23 use (Same capsular as: antigen Prevnar diphtheria 13) [id number] protein conjugate vaccine / Streptococc us pneumoniae serotype 14 capsular antigen diphtheria [id number] protein conjugate vaccine / Streptococc us pneumoniae serotype 18C capsular antigen d neostigmine 2017-02 No Route: IV, Memoria (ANES) 02-26 Drug form: l 20:53: INJ, ONCE, Stop date: 12/27/17 14:53:00 KNAPSACK SPRAYER glycopyrrol 2017-02 No Route: IV, Memoria ate (ANES) 02-26 Drug form: l 20:53: INJ, ONCE, Stop date: 12/27/17 14:53:00 KNAPSACK SPRAYER neostigmine 2017-02 No Route: IV, Memoria (ANES) 02-26 Drug form: l 20:53: INJ, ONCE, Stop date: 12/27/17 14:53:00 KNAPSACK SPRAYER glycopyrrol 2017-02 No Route: IV, Memoria ate (ANES) 02-26 Drug form: l 20:53: INJ, ONCE, Stop date: 12/27/17 14:53:00 KNAPSACK SPRAYER neostigmine 2017-02 No Route: IV, Memoria (ANES) 02-26 Drug form: l 20:53: INJ, ONCE, Stop date: 12/27/17 14:53:00 KNAPSACK SPRAYER glycopyrrol 2017-02 No Route: IV, Memoria ate (ANES) 02-26 Drug form: l 20:53: INJ, ONCE, Stop date: 12/27/17 14:53:00 KNAPSACK SPRAYER neostigmine 2017-02 No Route: IV, Memoria (ANES) 02-26 Drug form: l 20:53: INJ, ONCE, Stop date: 12/27/17 14:53:00 KNAPSACK SPRAYER glycopyrrol 2017-02 No Route: IV, Memoria ate (ANES) 02-26 Drug form: l 20:53: INJ, ONCE, Dime Box 00 Stop date: 12/27/17 14:53:00 KNAPSACK SPRAYER neostigmine 2017-02 No Route: IV, Memoria (ANES) 02-26 Drug form: l 20:53: INJ, ONCE, Stop date: 12/27/17 14:53:00 KNAPSACK SPRAYER glycopyrrol 2017-02 No Route: IV, Memoria ate (ANES) 02-26 Drug form: l 20:53: INJ, ONCE, Stop date: 12/27/17 14:53:00 KNAPSACK SPRAYER neostigmine 2017-02 No Route: IV, Memoria (ANES) 02-26 Drug form: l 20:53: INJ, ONCE, Stop date: 12/27/17 14:53:00 KNAPSACK SPRAYER glycopyrrol 2017-02 No Route: IV, Memoria ate (ANES) 02-26 Drug form: l 20:53: INJ, ONCE, Stop date: 12/27/17 14:53:00 KNAPSACK SPRAYER neostigmine 2017-02 No Route: IV, Memoria (ANES) 02-26 Drug form: l 20:53: INJ, ONCE, Stop date: 12/27/17 14:53:00 KNAPSACK SPRAYER glycopyrrol 2017-02 No Route: IV, Memoria ate (ANES) 02-26 Drug form: l 20:53: INJ, ONCE, Stop date: 12/27/17 14:53:00 KNAPSACK SPRAYER ondansetron 2017-02 No Route: IV, Memoria (ANES) 02-26 Drug form: l 20:48: INJ, ONCE, Stop date: 12/27/17 14:48:00 KNAPSACK SPRAYER ondansetron 2017-02 No Route: IV, Memoria (ANES) 02-26 Drug form: l 20:48: INJ, ONCE, Stop date: 12/27/17 14:48:00 KNAPSACK SPRAYER ondansetron 2017-02 No Route: IV, Memoria (ANES) 02-26 Drug form: l 20:48: INJ, ONCE, Stop date: 12/27/17 14:48:00 KNAPSACK SPRAYER ondansetron 2017-02 No Route: IV, Memoria (ANES) 02-26 Drug form: l 20:48: INJ, ONCE, Stop date: 12/27/17 14:48:00 KNAPSACK SPRAYER ondansetron 2017-02 No Route: IV, Memoria (ANES) 02-26 Drug form: l 20:48: INJ, ONCE, Stop date: 12/27/17 14:48:00 KNAPSACK SPRAYER ondansetron 2017-02 No Route: IV, Memoria (ANES) 02-26 Drug form: l 20:48: INJ, ONCE, Stop date: 12/27/17 14:48:00 KNAPSACK SPRAYER ondansetron 2017-02 No Route: IV, Memoria (ANES) 02-26 Drug form: l 20:48: INJ, ONCE, Stop date: 12/27/17 14:48:00 KNAPSACK SPRAYER Insulin 2017-02 No 60 units) Truong martha regular 02-26 WASTE: F/P l 20:41: - Black; E - Municipal Trash Bin Stable for 28 days at room temperatur e Expires in days from ____Date Glucagon 2017-02 No 1 mg, Memoria 02-26 Route: IM, l 20:41: Drug form: PDR/INJ, PRN, Dosing Weight 104.545, kg, PRN Blood Glucose Results, Start date: 12/27/17 14:41:00 KNAPSACK SPRAYER, 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 day, Stop date: 01/26/18 14:40:00 KNAPSACK SPRAYER Dextrose 2017-02 No 25 gm, 50 Truong martha 50% Syringe 1-09 mL, Route: l 20:41: IVP, Drug Form: INJ, Dosing Weight 104.545, kg, PRN, PRN Blood Glucose Results, Start date: 12/27/17 14:41:00 KNAPSACK SPRAYER, 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 day, Stop date: 01/26/18 14:40:00 KNAPSACK SPRAYER Insulin 2017-02 No 60 units) Truong martha regular 02-26 WASTE: F/P l 20:41: - Black; E - Municipal Trash Bin Stable for 28 days at room temperatur e Expires in days from ____Date Glucagon 2017-02 No 1 mg, Memoria 02-26 Route: IM, l 20:41: Drug form: Dime Box 00 PDR/INJ, PRN, Dosing Weight 104.545, kg, PRN Blood Glucose Results, Start date: 12/27/17 14:41:00 KNAPSACK SPRAYER, 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 day, Stop date: 01/26/18 14:40:00 KNAPSACK SPRAYER Dextrose 2017-02 No 25 gm, 50 Truong martha 50% Syringe 1-09 mL, Route: l 20:41: IVP, Drug Form: INJ, Dosing Weight 104.545, kg, PRN, PRN Blood Glucose Results, Start date: 12/27/17 14:41:00 KNAPSACK SPRAYER, 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 day, Stop date: 01/26/18 14:40:00 KNAPSACK SPRAYER Insulin 2017-02 No 60 units) Truong martha regular 02-26 WASTE: F/P l 20:41: - Black; E - Municipal Trash Bin Stable for 28 days at room temperatur e Expires in days from ____Date Glucagon 2017-02 No 1 mg, Memoria 02-26 Route: IM, l 20:41: Drug form: PDR/INJ, PRN, Dosing Weight 104.545, kg, PRN Blood Glucose Results, Start date: 12/27/17 14:41:00 [employer], 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 day, Stop date: 01/26/18 14:40:00 [employer] Dextrose 2017-02 No 25 gm, 50 Truong martha 50% Syringe 1-09 mL, Route: l 20:41: IVP, Drug Form: INJ, Dosing Weight 104.545, kg, PRN, PRN Blood Glucose Results, Start date: 12/27/17 14:41:00 [employer], 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 day, Stop date: 01/26/18 14:40:00 [employer] Insulin 2017-02 No 60 units) Truong martha regular 02-26 WASTE: F/P l 20:41: - Black; E - [employer] Trash Bin Stable for 28 days at room temperatur e Expires in days from ____Date Glucagon 2017-02 No 1 mg, Memoria 02-26 Route: IM, l 20:41: Drug form: Daryn 00 PDR/INJ, PRN, Dosing Weight 104.545, kg, PRN Blood Glucose Results, Start date: 12/27/17 14:41:00 [employer], 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 day, Stop date: 01/26/18 14:40:00 [employer] Dextrose 2017-02 No 25 gm, 50 Truong mratha 50% Syringe 1-09 mL, Route: l 20:41: IVP, Drug Form: INJ, Dosing Weight 104.545, kg, PRN, PRN Blood Glucose Results, Start date: 12/27/17 14:41:00 [employer], 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 day, Stop date: 01/26/18 14:40:00 [employer] Insulin 2017-02 No 60 units) Truong martha regular 02-26 WASTE: F/P l 20:41: - Black; E [employer] 00 - [employer] Trash Bin Stable for 28 days at room temperatur e Expires in days from ____Date Glucagon 2017-02 No 1 mg, Memoria 02-26 Route: IM, l 20:41: Drug form: Dime Box PDR/INJ, PRN, Dosing Weight 104.545, kg, PRN Blood Glucose Results, Start date: 12/27/17 14:41:00 [employer], 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 day, Stop date: 01/26/18 14:40:00 [employer] Dextrose 2017-02 No 25 gm, 50 Truong martha 50% Syringe 1-09 mL, Route: l 20:41: IVP, Drug Form: INJ, Dosing Weight 104.545, kg, PRN, PRN Blood Glucose Results, Start date: 12/27/17 14:41:00 [employer], 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 day, Stop date: 01/26/18 14:40:00 [employer]NA[employer] Insulin 2017-02 No 60 units) Truong martha regular 02-26 WASTE: F/P l 20:41: - Black; E Daryn 00 - [employer] Trash Bin Stable for 28 days at room temperatur e Expires in days from ____Date Glucagon 2017-02 No 1 mg, Memoria 02-26 Route: IM, l 20:41: Drug form: Daryn 00 PDR/INJ, PRN, Dosing Weight 104.545, kg, PRN Blood Glucose Results, Start date: 12/27/17 14:41:00 [employer], 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 day, Stop date: 01/26/18 14:40:00 [employer] Dextrose 2017-02 No 25 gm, 50 Truong martha 50% Syringe 1-09 mL, Route: l 20:41: IVP, Drug Form: INJ, Dosing Weight 104.545, kg, PRN, PRN Blood Glucose Results, Start date: 12/27/17 14:41:00 KNAPSACK SPRAYER, 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 day, Stop date: 01/26/18 14:40:00 KNAPSACK SPRAYER Insulin 2017-02 No 60 units) Truong martha regular 02-26 WASTE: F/P l 20:41: - Black; E - [facility] Trash Bin Stable for 28 days at room temperatur e Expires in days from ____Date Glucagon 2017-02 No 1 mg, Memoria 02-26 Route: IM, l 20:41: Drug form: PDR/INJ, PRN, Dosing Weight 104.545, kg, PRN Blood Glucose Results, Start date: 12/27/17 14:41:00 KNAPSACK SPRAYER, 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 day, Stop date: 01/26/18 14:40:00 KNAPSACK SPRAYER Dextrose 2017-02 No 25 gm, 50 Truong martha 50% Syringe -09 mL, Route: l 20:41: IVP, Drug Form: INJ, Dosing Weight 104.545, kg, PRN, PRN Blood Glucose Results, Start date: 12/27/17 14:41:00 KNAPSACK SPRAYER, 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 day, Stop date: 01/26/18 14:40:00 KNAPSACK SPRAYER Saline 2017-02 No Notes: Memoria Flush 0.9% 02-26 (Same as: l 20:36: BD Posiflush) Benadryl 2017-02 No Notes: Memoria 02-26 (Same as: l 20:36: Benadryl) Dilaudid 2017-02 No Notes: Memoria 02-26 Same as l 20:36: Dilaudid Bisacodyl 2017-02 No Notes: Memori a 02-26 (Same As: l 20:36: Dulcolax, Daryn 00 Bisco-Lax) phenol 2017-02 No Notes: Memoria 02-26 Chlorasept l 20:36: ic Castell Dime Box (Same as: Chlorasept ic, Sore Throat Castell) WASTE: F/P - Black; E - Municipal Trash Bin Flomax 2017-02 No 0.4 mg, Memoria 02-26 Route: PO, l 20:36: Drug form: Dime Box 00 CAP, Daily, Dosing Weight 104.545, kg, Priority: NOW, Start date: 12/27/17 14:36:00 KNAPSACK SPRAYER, 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 day, Stop date: 01/26/18 9:00:00 KNAPSACK SPRAYER Melatonin 3 2017-02 No Notes: Truong martha MG Extended 02-26 (Same as: l Release 20:36: Melatonin) Herm maggie Tablet Labetalol 2017-02 No 10 mg, 2 Truong martha 02-26 mL, Route: l 20:36: IVP, Drug form: INJ, Q15Min, Dosing Weight 104.545, kg, PRN Hypertensi on, Start date: 12/27/17 14:36:00 KNAPSACK SPRAYER, Duration: 3 doses or times, Stop date: 12/28/17 14:36:00 KNAPSACK SPRAYER Ondansetron 2017-02 No Notes: Truong martha 02-26 (Same as: l 20:36: Zofran) MEDICATION WASTE Product Size: 4 mg Product Wasted: ___ mg Acetaminoph 2017-02 No Notes: Do M emoria en 325 MG / 02-26 not exceed l Hydrocodone 20:36: 4gm/day of Dime Box Bitartrate 00 acetaminop 10 MG Oral hen. (Same Tablet as: [place] [[place] 325/10) 10/325] Hydralazine 2017-02 No Notes: Truong martha 02-26 (Same as: l 20:36: Apresoline Daryn 00 ) Push over 5 minutes Sodium 2017-02 No 1,000 mL, Memori a Chloride 02-26 Rate: 75 l 0.9% IV 20:36: ml/hr, Dime Box 1,000 mL 00 Infuse over: 13.3 hr, Route: IV, Dosing Weight 104.545 kg, Total Volume: 1,000, Start date: 12/27/17 14:36:00 KNAPSACK SPRAYER, 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 day, Stop date: 01/26/18 14:35:00 KNAPSACK SPRAYER, 2.31, m2 Baclofen 2017-02 No Notes: 5 Memor ia 1-09 mg =1/2 of l 20:36: 10 mg Tab (Same As: Lioresal) Saline 2017-02 No Notes: Memoria Flush 0.9% 02-26 (Same as: l 20:36: BD Dime Box 00 Posiflush) Benadryl 2017-02 No Notes: Memoria 02-26 (Same as: l 20:36: Benadryl) Dime Box Dilaudid 2017-02 No Notes: Memoria 02-26 Same as l 20:36: Dilaudid Dime Box 00 Bisacodyl 2017-02 No Notes: Memori a 02-26 (Same As: l 20:36: Dulcolax, Daryn Bisco-Lax) phenol 2017-02 No Notes: Memoria 02-26 Chlorasept l 20:36: ic Castell (Same as: Chlorasept ic, Sore Throat Castell) WASTE: F/P - Black; E - [facility] Trash Bin Flomax 2017-02 No 0.4 mg, Memoria 02-26 Route: PO, l 20:36: Drug form: Dime Box 00 CAP, Daily, Dosing Weight 104.545, kg, Priority: NOW, Start date: 12/27/17 14:36:00 KNAPSACK SPRAYER, 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 day, Stop date: 01/26/18 9:00:00 KNAPSACK SPRAYER Melatonin 3 2017-02 No Notes: Truong martha MG Extended 02-26 (Same as: l Release 20:36: Melatonin) Herm maggie Tablet 00 Labetalol 2017-02 No 10 mg, 2 Truong martha -09 mL, Route: l 20:36: IVP, Drug form: INJ, Q15Min, Dosing Weight 104.545, kg, PRN Hypertensi on, Start date: 12/27/17 14:36:00 KNAPSACK SPRAYER, Duration: 3 doses or times, Stop date: 12/28/17 14:36:00 KNAPSACK SPRAYER Ondansetron 2017-02 No Notes: Truong martha 02-26 (Same as: l 20:36: Zofran) MEDICATION WASTE Product Size: 4 mg Product Wasted: ___ mg Acetaminoph 2017-02 No Notes: Do M emoria en 325 MG / 02-26 not exceed l Hydrocodone 20:36: 4gm/day of Dime Box Bitartrate 00 acetaminop 10 MG Oral hen. (Same Tablet as: [place] [[place] 325/10) 325] Hydralazine 2017-02 No Notes: Truong martha 02-26 (Same as: l 20:36: Apresoline ) Push over 5 minutes Sodium 2017-02 No 1,000 mL, Memori a Chloride 02-26 Rate: 75 l 0.9% IV 20:36: ml/hr, Dime Box 1,000 mL 00 Infuse over: 13.3 hr, Route: IV, Dosing Weight 104.545 kg, Total Volume: 1,000, Start date: 12/27/17 14:36:00 KNAPSACK SPRAYER, 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 day, Stop date: 01/26/18 14:35:00 KNAPSACK SPRAYER, 2.31, m2 Baclofen 2017-02 No Notes: 5 Memor ia 02-26 mg =1/2 of l 20:36: 10 mg Tab (Same As: Lioresal) Saline 2017-02 No Notes: Memoria Flush 0.9% 02-26 (Same as: l 20:36: BD Posiflush) Benadryl 2017-02 No Notes: Memoria 02-26 (Same as: l 20:36: Benadryl) Dilaudid 2017-02 No Notes: Memoria 02-26 Same as l 20:36: Dilaudid Bisacodyl 2017-02 No Notes: Memori a 02-26 (Same As: l 20:36: Dulcolax, Bisco-Lax) phenol 2017-02 No Notes: Memoria 02-26 Chlorasept l 20:36: ic Castell (Same as: Chlorasept ic, Sore Throat Castell) WASTE: F/P - Black; E - [facility] Trash Bin Flomax 2017-02 No 0.4 mg, Memoria 02-26 Route: PO, l 20:36: Drug form: Dime Box 00 CAP, Daily, Dosing Weight 104.545, kg, Priority: NOW, Start date: 12/27/17 14:36:00 KNAPSACK SPRAYER, 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 day, Stop date: 01/26/18 9:00:00 KNAPSACK SPRAYER Melatonin 3 2017-02 No Notes: Truong martha MG Extended 02-26 (Same as: l Release 20:36: Melatonin) Herm maggie Tablet 00 Labetalol 2017-02 No 10 mg, 2 Truong martha 1-09 mL, Route: l 20:36: IVP, Drug Dime Box 00 form: INJ, Q15Min, Dosing Weight 104.545, kg, PRN Hypertensi on, Start date: 12/27/17 14:36:00 KNAPSACK SPRAYER, Duration: 3 doses or times, Stop date: 12/28/17 14:36:00 KNAPSACK SPRAYER Ondansetron 2017-02 No Notes: Truong martha 02-26 (Same as: l 20:36: Zofran) Daryn MEDICATION WASTE Product Size: 4 mg Product Wasted: ___ mg Acetaminoph 2017-02 No Notes: Do M emoria en 325 MG / 02-26 not exceed l Hydrocodone 20:36: 4gm/day of Dime Box Bitartrate 00 acetaminop 10 MG Oral hen. (Same Tablet as: [place] [[place] 325/10) 10325] Hydralazine 2017-02 No Notes: Truong martha 02-26 (Same as: l 20:36: Apresoline ) Push over 5 minutes Sodium 2017-02 No 1,000 mL, Memori a Chloride 02-26 Rate: 75 l 0.9% IV 20:36: ml/hr, Dime Box 1,000 mL 00 Infuse over: 13.3 hr, Route: IV, Dosing Weight 104.545 kg, Total Volume: 1,000, Start date: 12/27/17 14:36:00 KNAPSACK SPRAYER, 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 day, Stop date: 01/26/18 14:35:00 KNAPSACK SPRAYER, 2.31, m2 Baclofen 2017-02 No Notes: 5 Memor ia 1-09 mg =1/2 of l 20:36: 10 mg Tab Dime Box (Same As: Lioresal) Saline 2017-02 No Notes: Memoria Flush 0.9% 02-26 (Same as: l 20:36: BD Posiflush) Benadryl 2017-02 No Notes: Memoria 02-26 (Same as: l 20:36: Benadryl) Dilaudid 2017-02 No Notes: Memoria 02-26 Same as l 20:36: Dilaudid Bisacodyl 2017-02 No Notes: Memori a 02-26 (Same As: l 20:36: Dulcolax, Bisco-Lax) phenol 2017-02 No Notes: Memoria 02-26 Chlorasept l 20:36: ic Castell (Same as: Chlorasept ic, Sore Throat Castell) WASTE: F/P - Black; E - [facility] Trash Bin Flomax 2017-02 No 0.4 mg, Memoria 02-26 Route: PO, l 20:36: Drug form: Dime Box 00 CAP, Daily, Dosing Weight 104.545, kg, Priority: NOW, Start date: 12/27/17 14:36:00 KNAPSACK SPRAYER, 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 day, Stop date: 01/26/18 9:00:00 KNAPSACK SPRAYER Melatonin 3 2017-02 No Notes: Truong martha MG Extended 02-26 (Same as: l Release 20:36: Melatonin) Herm maggie Tablet Labetalol 2017-02 No 10 mg, 2 Truong martha - mL, Route: l 20:36: IVP, Drug form: INJ, Q15Min, Dosing Weight 104.545, kg, PRN Hypertensi on, Start date: 12/27/17 14:36:00 KNAPSACK SPRAYER, Duration: 3 doses or times, Stop date: 12/28/17 14:36:00 KNAPSACK SPRAYER Ondansetron 2017-02 No Notes: Truong martha 02-26 (Same as: l 20:36: Zofran) MEDICATION WASTE Product Size: 4 mg Product Wasted: ___ mg Acetaminoph 2017-02 No Notes: Do M emoria en 325 MG / 02-26 not exceed l Hydrocodone 20:36: 4gm/day of Dime Box Bitartrate 00 acetaminop 10 MG Oral hen. (Same Tablet as: [place] [[place] 325/10) 10/325] Hydralazine 2017-02 No Notes: Truong martha 02-26 (Same as: l 20:36: Apresoline ) Push over 5 minutes Sodium 2017-02 No 1,000 mL, Memori a Chloride 02-26 Rate: 75 l 0.9% IV 20:36: ml/hr, Dime Box 1,000 mL 00 Infuse over: 13.3 hr, Route: IV, Dosing Weight 104.545 kg, Total Volume: 1,000, Start date: 12/27/17 14:36:00 KNAPSACK SPRAYER, 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 day, Stop date: 01/26/18 14:35:00 KNAPSACK SPRAYER, 2.31, m2 Baclofen 2017-02 No Notes: 5 Memor ia 02-26 mg =1/2 of l 20:36: 10 mg Tab (Same As: Lioresal) Saline 2017-02 No Notes: Memoria Flush 0.9% 02-26 (Same as: l 20:36: BD Posiflush) Benadryl 2017-02 No Notes: Memoria 02-26 (Same as: l 20:36: Benadryl) Dilaudid 2017-02 No Notes: Memoria 02-26 Same as l 20:36: Dilaudid Bisacodyl 2017-02 No Notes: Memori a 02-26 (Same As: l 20:36: Dulcolax, Bisco-Lax) phenol 2017-02 No Notes: Memoria 02-26 Chlorasept l 20:36: ic Castell (Same as: Chlorasept ic, Sore Throat Castell) WASTE: F/P - Black; E - [facility] Trash Bin Flomax 2017-02 No 0.4 mg, Memoria 02-26 Route: PO, l 20:36: Drug form: Daryn CAP, Daily, Dosing Weight 104.545, kg, Priority: NOW, Start date: 12/27/17 14:36:00 KNAPSACK SPRAYER, 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 day, Stop date: 01/26/18 9:00:00 KNAPSACK SPRAYER Melatonin 3 2017-02 No Notes: Truong martha MG Extended 02-26 (Same as: l Release 20:36: Melatonin) Herm maggie Tablet 00 Labetalol 2017-02 No 10 mg, 2 Truong martha 1-09 mL, Route: l 20:36: IVP, Drug form: INJ, Q15Min, Dosing Weight 104.545, kg, PRN Hypertensi on, Start date: 12/27/17 14:36:00 KNAPSACK SPRAYER, Duration: 3 doses or times, Stop date: 12/28/17 14:36:00 KNAPSACK SPRAYER Ondansetron 2017-02 No Notes: Truong martha - (Same as: l 20:36: Zofran) MEDICATION WASTE Product Size: 4 mg Product Wasted: ___ mg Acetaminoph 2017-02 No Notes: Do M emoria en 325 MG / 02-26 not exceed l Hydrocodone 20:36: 4gm/day of Daryn Bitartrate 00 acetaminop 10 MG Oral hen. (Same Tablet as: [place] [[place] 325/10) 10325] Hydralazine 2017-02 No Notes: Truong martha - (Same as: l 20:36: Apresoline ) Push over 5 minutes Sodium 2017-02 No 1,000 mL, Memori a Chloride 02-26 Rate: 75 l 0.9% IV 20:36: ml/hr, Daryn 1,000 mL 00 Infuse over: 13.3 hr, Route: IV, Dosing Weight 104.545 kg, Total Volume: 1,000, Start date: 12/27/17 14:36:00 KNAPSACK SPRAYER, 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 day, Stop date: 01/26/18 14:35:00 KNAPSACK SPRAYER, 2.31, m2 Baclofen 2017-02 No Notes: 5 Memor ia 1- mg =1/2 of l 20:36: 10 mg Tab (Same As: Lioresal) Saline 2017-02 No Notes: Memoria Flush 0.9% - (Same as: l 20:36: BD Dime Box 00 Posiflush) Benadryl 2017-02 No Notes: Memoria 1- (Same as: l 20:36: Benadryl) Dime Box 00 Dilaudid 2017-02 No Notes: Memoria 1- Same as l 20:36: Dilaudid Bisacodyl 2017-02 No Notes: Memori a 1- (Same As: l 20:36: Dulcolax, Dime Box 00 Bisco-Lax) phenol 2017-02 No Notes: Memoria 02-26 Chlorasept l 20:36: ic Castell Dime Box 00 (Same as: Chlorasept ic, Sore Throat Castell) WASTE: F/P - Black; E - [place] Trash Bin Flomax 2017-02 No 0.4 mg, Memoria 02-26 Route: PO, l 20:36: Drug form: Daryn 00 CAP, Daily, Dosing Weight 104.545, kg, Priority: NOW, Start date: 12/27/17 14:36:00 KNAPSACK SPRAYER, 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 day, Stop date: 01/26/18 9:00:00 KNAPSACK SPRAYER Melatonin 3 2017-02 No Notes: Truong martha MG Extended 02-26 (Same as: l Release 20:36: Melatonin) Herm maggie Tablet 00 Labetalol 2017-02 No 10 mg, 2 Truong martha - mL, Route: l 20:36: IVP, Drug form: INJ, Q15Min, Dosing Weight 104.545, kg, PRN Hypertensi on, Start date: 12/27/17 14:36:00 KNAPSACK SPRAYER, Duration: 3 doses or times, Stop date: 12/28/17 14:36:00 KNAPSACK SPRAYER Ondansetron 2017-02 No Notes: Truong martha 02-26 (Same as: l 20:36: Zofran) MEDICATION WASTE Product Size: 4 mg Product Wasted: ___ mg Acetaminoph 2017-02 No Notes: Do M emoria en 325 MG / 02-26 not exceed l Hydrocodone 20:36: 4gm/day of Daryn Bitartrate 00 acetaminop 10 MG Oral hen. (Same Tablet as: [place] [[place] 325/10) 10/325] Hydralazine 2017-02 No Notes: Truong martha 02-26 (Same as: l 20:36: Apresoline ) Push over 5 minutes Sodium 2017-02 No 1,000 mL, Memori a Chloride 02-26 Rate: 75 l 0.9% IV 20:36: ml/hr, Dime Box 1,000 mL 00 Infuse over: 13.3 hr, Route: IV, Dosing Weight 104.545 kg, Total Volume: 1,000, Start date: 12/27/17 14:36:00 KNAPSACK SPRAYER, 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 day, Stop date: 01/26/18 14:35:00 KNAPSACK SPRAYER, 2.31, m2 Baclofen 2017-02 No Notes: 5 Memor ia - mg =1/2 of l 20:36: 10 mg Tab Daryn 00 (Same As: Lioresal) Saline 2017-02 No Notes: Memoria Flush 0.9% 02-26 (Same as: l 20:36: BD Dime Box 00 Posiflush) Benadryl 2017-02 No Notes: Memoria 02-26 (Same as: l 20:36: Benadryl) Daryn Dilaudid 2017-02 No Notes: Memoria 02-26 Same as l 20:36: Dilaudid Dime Box 00 Bisacodyl 2017-02 No Notes: Memori a 02-26 (Same As: l 20:36: Dulcolax, Daryn Bisco-Lax) phenol 2017-02 No Notes: Memoria 02-26 Chlorasept l 20:36: ic Castell (Same as: Chlorasept ic, Sore Throat Castell) WASTE: F/P - Black; E - Municipal Trash Bin Flomax 2017-02 No 0.4 mg, Memoria 02-26 Route: PO, l 20:36: Drug form: Daryn 00 CAP, Daily, Dosing Weight 104.545, kg, Priority: NOW, Start date: 12/27/17 14:36:00 KNAPSACK SPRAYER, 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 day, Stop date: 01/26/18 9:00:00 KNAPSACK SPRAYER Melatonin 3 2017-02 No Notes: Truong martha MG Extended 02-26 (Same as: l Release 20:36: Melatonin) Herm maggie Tablet 00 Labetalol 2017-02 No 10 mg, 2 Truong martha -09 mL, Route: l 20:36: IVP, Drug Dime Box 00 form: INJ, Q15Min, Dosing Weight 104.545, kg, PRN Hypertensi on, Start date: 12/27/17 14:36:00 KNAPSACK SPRAYER, Duration: 3 doses or times, Stop date: 12/28/17 14:36:00 KNAPSACK SPRAYER Ondansetron 2017-02 No Notes: Truong martha 02-26 (Same as: l 20:36: Zofran) Dime Box 00 MEDICATION WASTE Product Size: 4 mg Product Wasted: ___ mg Acetaminoph 2017-02 No Notes: Do M emoria en 325 MG / 02-26 not exceed l Hydrocodone 20:36: 4gm/day of Daryn Bitartrate 00 acetaminop 10 MG Oral hen. (Same Tablet as: [place] [[place] 325/10) 10/325] Hydralazine 2017-02 No Notes: Truong martha 02-26 (Same as: l 20:36: Apresoline Dime Box 00 ) Push over 5 minutes Sodium 2017-02 No 1,000 mL, Memori a Chloride 02-26 Rate: 75 l 0.9% IV 20:36: ml/hr, Dime Box 1,000 mL 00 Infuse over: 13.3 hr, Route: IV, Dosing Weight 104.545 kg, Total Volume: 1,000, Start date: 12/27/17 14:36:00 KNAPSACK SPRAYER, 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 day, Stop date: 01/26/18 14:35:00 KNAPSACK SPRAYER, 2.31, m2 Baclofen 2017-02 No Notes: 5 Memor ia 02-26 mg =1/2 of l 20:36: 10 mg Tab Dime Box 00 (Same As: Lioresal) Acetaminoph 2017-02 No Notes: Truong martha en 02-26 Infuse l 19:25: over 15 Daryn 00 minutes Do not exceed 4gm/day of acetaminop hen MEDICATION WASTE Product Size: 1000 mg Product Wasted: ___ mg Acetaminoph 2017-02 No Notes: Truong martha en 02-26 Infuse l 19:25: over 15 Dime Box 00 minutes Do not exceed 4gm/day of acetaminop hen MEDICATION WASTE Product Size: 1000 mg Product Wasted: ___ mg Acetaminoph 2017-02 No Notes: Truong martha en 02-26 Infuse l 19:25: over 15 Daryn 00 minutes Do not exceed 4gm/day of acetaminop hen MEDICATION WASTE Product Size: 1000 mg Product Wasted: ___ mg Acetaminoph 2017-02 No Notes: Truong martha en 02-26 Infuse l 19:25: over 15 Daryn 00 minutes Do not exceed 4gm/day of acetaminop hen MEDICATION WASTE Product Size: 1000 mg Product Wasted: ___ mg Acetaminoph 2017-02 No Notes: Truong martha en 02-26 Infuse l 19:25: over 15 Dime Box 00 minutes Do not exceed 4gm/day of acetaminop hen MEDICATION WASTE Product Size: 1000 mg Product Wasted: ___ mg Acetaminoph 2017-02 No Notes: Truong martha en 02-26 Infuse l 19:25: over 15 Daryn 00 minutes Do not exceed 4gm/day of acetaminop hen MEDICATION WASTE Product Size: 1000 mg Product Wasted: ___ mg Acetaminoph 2017-02 No Notes: Truong martha en 02-26 Infuse l 19:25: over 15 Dime Box 00 minutes Do not exceed 4gm/day of acetaminop hen MEDICATION WASTE Product Size: 1000 mg Product Wasted: ___ mg phenylephri 2017-02 No Route: IV, Memoria ne (ANES) 02-26 Drug form: l 18:52: INJ, ONCE, Stop date: 12/27/17 12:52:00 KNAPSACK SPRAYER phenylephri 2017-02 No Route: IV, Memoria ne (ANES) 02-26 Drug form: l 18:52: INJ, ONCE, Stop date: 12/27/17 12:52:00 KNAPSACK SPRAYER phenylephri 2017-02 No Route: IV, Memoria ne (ANES) 02-26 Drug form: l 18:52: INJ, ONCE, Stop date: 12/27/17 12:52:00 KNAPSACK SPRAYER phenylephri 2017-02 No Route: IV, Memoria ne (ANES) 02-26 Drug form: l 18:52: INJ, ONCE, Stop date: 12/27/17 12:52:00 KNAPSACK SPRAYER phenylephri 2017-02 No Route: IV, Memoria ne (ANES) 02-26 Drug form: l 18:52: INJ, ONCE, Stop date: 12/27/17 12:52:00 KNAPSACK SPRAYER phenylephri 2017-02 No Route: IV, Memoria ne (ANES) 02-26 Drug form: l 18:52: INJ, ONCE, Daryn 00 Stop date: 12/27/17 12:52:00 KNAPSACK SPRAYER phenylephri 2017-02 No Route: IV, Memoria ne (ANES) 02-26 Drug form: l 18:52: INJ, ONCE, Daryn Stop date: 12/27/17 12:52:00 KNAPSACK SPRAYER Insulin 2017-02 No Route: IV, Truong martha regular 02-26 Drug form: l (ANES) 18:12: INJ, ONCE, Shea nn Stop date: 12/27/17 12:12:00 KNAPSACK SPRAYER Insulin 2017-02 No Route: IV, Truong martha regular 02-26 Drug form: l (ANES) 18:12: INJ, ONCE, Shea nn Stop date: 12/27/17 12:12:00 KNAPSACK SPRAYER Insulin 2017-02 No Route: IV, Truong martha regular 02-26 Drug form: l (ANES) 18:12: INJ, ONCE, Shea nn Stop date: 12/27/17 12:12:00 KNAPSACK SPRAYER Insulin 2017-02 No Route: IV, Truong martha regular 02-26 Drug form: l (ANES) 18:12: INJ, ONCE, Shea nn Stop date: 12/27/17 12:12:00 KNAPSACK SPRAYER Insulin 2017-02 No Route: IV, Truong martha regular 02-26 Drug form: l (ANES) 18:12: INJ, ONCE, Shea nn Stop date: 12/27/17 12:12:00 KNAPSACK SPRAYER Insulin 2017-02 No Route: IV, Truong martha regular 02-26 Drug form: l (ANES) 18:12: INJ, ONCE, Shea nn Stop date: 12/27/17 12:12:00 KNAPSACK SPRAYER Insulin 2017-02 No Route: IV, Truong martha regular 02-26 Drug form: l (ANES) 18:12: INJ, ONCE, Shea nn Stop date: 12/27/17 12:12:00 KNAPSACK SPRAYER Isolyte S 2017-02 No Route: IV, Me moria PH 7.4 02-26 Total l (ANES) 1000 16:18: Volume: Her apple mL 00 1,000, Start date: 12/27/17 10:18:00 KNAPSACK SPRAYER, Stop date: 12/27/17 11:18:00 KNAPSACK SPRAYER Isolyte S 2017-02 No Route: IV, Me moria PH 7.4 1-09 Total l (ANES) 1000 16:18: Volume: Her apple mL 00 1,000, Start date: 12/27/17 10:18:00 KNAPSACK SPRAYER, Stop date: 12/27/17 11:18:00 KNAPSACK SPRAYER Isolyte S 2017-02 No Route: IV, Me moria PH 7.4 1-09 Total l (ANES) 1000 16:18: Volume: Her apple mL 00 1,000, Start date: 12/27/17 10:18:00 KNAPSACK SPRAYER, Stop date: 12/27/17 11:18:00 KNAPSACK SPRAYER Isolyte S 2017-02 No Route: IV, Me moria PH 7.4 1-09 Total l (ANES) 1000 16:18: Volume: Her apple mL 00 1,000, Start date: 12/27/17 10:18:00 KNAPSACK SPRAYER, Stop date: 12/27/17 11:18:00 KNAPSACK SPRAYER Isolyte S 2017-02 No Route: IV, Me moria PH 7.4 1- Total l (ANES) 1000 16:18: Volume: Her apple mL 00 1,000, Start date: 12/27/17 10:18:00 KNAPSACK SPRAYER, Stop date: 12/27/17 11:18:00 KNAPSACK SPRAYER Isolyte S 2017-02 No Route: IV, Me moria PH 7.4 1-09 Total l (ANES) 1000 16:18: Volume: Her apple mL 00 1,000, Start date: 12/27/17 10:18:00 KNAPSACK SPRAYER, Stop date: 12/27/17 11:18:00 KNAPSACK SPRAYER Isolyte S 2017-02 No Route: IV, Me moria PH 7.4 1-09 Total l (ANES) 1000 16:18: Volume: Her apple mL 00 1,000, Start date: 12/27/17 10:18:00 KNAPSACK SPRAYER, Stop date: 12/27/17 11:18:00 KNAPSACK SPRAYER acetaminoph 2017-02 No Route: IV, Memoria en (ANES) 02-26 Drug form: l 15:42: INJ, ONCE, Daryn Stop date: 12/27/17 9:42:00 KNAPSACK SPRAYER acetaminoph 2017-02 No Route: IV, Memoria en (ANES) 02-26 Drug form: l 15:42: INJ, ONCE, Dime Box Stop date: 12/27/17 9:42:00 KNAPSACK SPRAYER acetaminoph 2017-02 No Route: IV, Memoria en (ANES) 02-26 Drug form: l 15:42: INJ, ONCE, Stop date: 12/27/17 9:42:00 KNAPSACK SPRAYER acetaminoph 2017-02 No Route: IV, Memoria en (ANES) 02-26 Drug form: l 15:42: INJ, ONCE, Stop date: 12/27/17 9:42:00 KNAPSACK SPRAYER acetaminoph 2017-02 No Route: IV, Memoria en (ANES) 02-26 Drug form: l 15:42: INJ, ONCE, Stop date: 12/27/17 9:42:00 KNAPSACK SPRAYER acetaminoph 2017-02 No Route: IV, Memoria en (ANES) 02-26 Drug form: l 15:42: INJ, ONCE, Stop date: 12/27/17 9:42:00 KNAPSACK SPRAYER acetaminoph 2017-02 No Route: IV, Memoria en (ANES) 02-26 Drug form: l 15:42: INJ, ONCE, Stop date: 12/27/17 9:42:00 KNAPSACK SPRAYER Ondansetron 2017-02 No Notes: Truong martha 02-26 (Same as: l 15:16: Zofran) MEDICATION WASTE Product Size: 4 mg Product Wasted: ___ mg Flumazenil 2017-02 No Notes: Memor ia 02-26 (Same as: l 15:16: Romazicon) Naloxone 2017-02 No Notes: Memoria 02-26 Same as l 15:16: Narcan Hydromorpho 2017-02 No Notes: Truong martha ne 02-26 Same as l 15:16: Dilaudid Oxycodone 2017-02 No Notes: Memori a 02-26 (Same as: l 15:16: Roxicodone ) Labetalol 2017-02 No 10 mg, 2 Truong martha - mL, Route: l 15:16: IVP, Drug form: INJ, Q5Min, Dosing Weight 104.545, kg, PRN Elevated BP, Start date: 12/27/17 9:16:00 KNAPSACK SPRAYER, Duration: 5 doses or times, Stop date: Limited # of times Ondansetron 2017-02 No Notes: Truong martha 02-26 (Same as: l 15:16: Zofran) Daryn 00 MEDICATION WASTE Product Size: 4 mg Product Wasted: ___ mg Flumazenil 2017-02 No Notes: Memor ia 02-26 (Same as: l 15:16: Romazicon) Dime Box Naloxone 2017-02 No Notes: Memoria 02-26 Same as l 15:16: Narcan Dime Box 00 Hydromorpho 2017-02 No Notes: Truong martha ne 02-26 Same as l 15:16: Dilaudid Dime Box 00 Oxycodone 2017-02 No Notes: Memori a 02-26 (Same as: l 15:16: Roxicodone ) Labetalol 2017-02 No 10 mg, 2 Truong martha 1-09 mL, Route: l 15:16: IVP, Drug Dime Box 00 form: INJ, Q5Min, Dosing Weight 104.545, kg, PRN Elevated BP, Start date: 12/27/17 9:16:00 [employer], Duration: 5 doses or times, Stop date: Limited # of times Ondansetron 2017-02 No Notes: Truong martha 02-26 (Same as: l 15:16: Zofran) Dime Box 00 MEDICATION WASTE Product Size: 4 mg Product Wasted: ___ mg Flumazenil 2017-02 No Notes: Memor ia 02-26 (Same as: l 15:16: Romazicon) Daryn 00 Naloxone 2017-02 No Notes: Memoria 02-26 Same as l 15:16: Narcan Hydromorpho 2017-02 No Notes: Truong martha ne 02-26 Same as l 15:16: Dilaudid Dime Box 00 Oxycodone 2017-02 No Notes: Memori a 02-26 (Same as: l 15:16: Roxicodone ) Labetalol 2017-02 No 10 mg, 2 Truong martha 1-09 mL, Route: l 15:16: IVP, Drug Daryn 00 form: INJ, Q5Min, Dosing Weight 104.545, kg, PRN Elevated BP, Start date: 12/27/17 9:16:00 [employer], Duration: 5 doses or times, Stop date: Limited # of times Ondansetron 2017-02 No Notes: Truong martha 02-26 (Same as: l 15:16: Zofran) Dime Box MEDICATION WASTE Product Size: 4 mg Product Wasted: ___ mg Flumazenil 2017-02 No Notes: Memor ia 02-26 (Same as: l 15:16: Romazicon) Dime Box Naloxone 2017-02 No Notes: Memoria 02-26 Same as l 15:16: Narcan Dime Box Hydromorpho 2017-02 No Notes: Truong martha ne 02-26 Same as l 15:16: Dilaudid Daryn 00 Oxycodone 2017-02 No Notes: Memori a 02-26 (Same as: l 15:16: Roxicodone ) Labetalol 2017-02 No 10 mg, 2 Truong martha 1-09 mL, Route: l 15:16: IVP, Drug Dime Box 00 form: INJ, Q5Min, Dosing Weight 104.545, kg, PRN Elevated BP, Start date: 12/27/17 9:16:00 [employer], Duration: 5 doses or times, Stop date: Limited # of times Ondansetron 2017-02 No Notes: Truong martha 02-26 (Same as: l 15:16: Zofran) Daryn 00 MEDICATION WASTE Product Size: 4 mg Product Wasted: ___ mg Flumazenil 2017-02 No Notes: Memor ia 02-26 (Same as: l 15:16: Romazicon) Dime Box Naloxone 2017-02 No Notes: Memoria 02-26 Same as l 15:16: Narcan Dime Box Hydromorpho 2017-02 No Notes: Truong martha ne 02-26 Same as l 15:16: Dilaudid Daryn Oxycodone 2017-02 No Notes: Memori a 02-26 (Same as: l 15:16: Roxicodone Daryn 00 ) Labetalol 2017-02 No 10 mg, 2 Truong martha 1-09 mL, Route: l 15:16: IVP, Drug Dime Box 00 form: INJ, Q5Min, Dosing Weight 104.545, kg, PRN Elevated BP, Start date: 12/27/17 9:16:00 [employer], Duration: 5 doses or times, Stop date: Limited # of times Ondansetron 2017-02 No Notes: Truong martha 02-26 (Same as: l 15:16: Zofran) Dime Box MEDICATION WASTE Product Size: 4 mg Product Wasted: ___ mg Flumazenil 2017-02 No Notes: Memor ia 02-26 (Same as: l 15:16: Romazicon) Daryn Naloxone 2017-02 No Notes: Memoria 02-26 Same as l 15:16: Narcan Dime Box Hydromorpho 2017-02 No Notes: Truong martha ne 02-26 Same as l 15:16: Dilaudid Daryn 00 Oxycodone 2017-02 No Notes: Memori a 02-26 (Same as: l 15:16: Roxicodone ) Labetalol 2017-02 No 10 mg, 2 Truong martha 1-09 mL, Route: l 15:16: IVP, Drug Dime Box 00 form: INJ, Q5Min, Dosing Weight 104.545, kg, PRN Elevated BP, Start date: 12/27/17 9:16:00 KNAPSACK SPRAYER, Duration: 5 doses or times, Stop date: Limited # of times Ondansetron 2017-02 No Notes: Truong martha 02-26 (Same as: l 15:16: Zofran) Daryn 00 MEDICATION WASTE Product Size: 4 mg Product Wasted: ___ mg Flumazenil 2017-02 No Notes: Memor ia 02-26 (Same as: l 15:16: Romazicon) Daryn Naloxone 2017-02 No Notes: Memoria 02-26 Same as l 15:16: Narcan Daryn Hydromorpho 2017-02 No Notes: Truong martha ne 02-26 Same as l 15:16: Dilaudid Daryn 00 Oxycodone 2017-02 No Notes: Memori a 02-26 (Same as: l 15:16: Roxicodone Daryn 00 ) Labetalol 2017-02 No 10 mg, 2 Truong martha 1-09 mL, Route: l 15:16: IVP, Drug Daryn 00 form: INJ, Q5Min, Dosing Weight 104.545, kg, PRN Elevated BP, Start date: 12/27/17 9:16:00 KNAPSACK SPRAYER, Duration: 5 doses or times, Stop date: Limited # of times fentaNYL 2017-02 No Route: IV, Mem oria (ANES) 02-26 Drug form: l 15:12: INJ, ONCE, Stop date: 12/27/17 9:12:00 KNAPSACK SPRAYER lidocaine 2017-02 No Route: IV, Me moria (ANES) 02-26 Drug form: l 15:12: INJ, ONCE, Stop date: 12/27/17 9:12:00 KNAPSACK SPRAYER rocuronium 2017-02 No Route: IV, M emoria (ANES) 02-26 Drug form: l 15:12: INJ, ONCE, Stop date: 12/27/17 9:12:00 KNAPSACK SPRAYER propofol 2017-02 No Route: IV, Mem oria (ANES) 02-26 Drug form: l 15:12: INJ, ONCE, Stop date: 12/27/17 9:12:00 KNAPSACK SPRAYER fentaNYL 2017-02 No Route: IV, Mem oria (ANES) 02-26 Drug form: l 15:12: INJ, ONCE, Stop date: 12/27/17 9:12:00 KNAPSACK SPRAYER lidocaine 2017-02 No Route: IV, Me moria (ANES) 02-26 Drug form: l 15:12: INJ, ONCE, Stop date: 12/27/17 9:12:00 KNAPSACK SPRAYER rocuronium 2017-02 No Route: IV, M emoria (ANES) 02-26 Drug form: l 15:12: INJ, ONCE, Stop date: 12/27/17 9:12:00 KNAPSACK SPRAYER propofol 2017-02 No Route: IV, Mem oria (ANES) 02-26 Drug form: l 15:12: INJ, ONCE, Stop date: 12/27/17 9:12:00 KNAPSACK SPRAYER fentaNYL 2017-02 No Route: IV, Mem oria (ANES) 02-26 Drug form: l 15:12: INJ, ONCE, Stop date: 12/27/17 9:12:00 KNAPSACK SPRAYER lidocaine 2017-02 No Route: IV, Me moria (ANES) 02-26 Drug form: l 15:12: INJ, ONCE, Stop date: 12/27/17 9:12:00 KNAPSACK SPRAYER rocuronium 2017-02 No Route: IV, Ami emoria (ANES) 02-26 Drug form: l 15:12: INJ, ONCE, Stop date: 12/27/17 9:12:00 KNAPSACK SPRAYER propofol 2017-02 No Route: IV, Mem oria (ANES) 02-26 Drug form: l 15:12: INJ, ONCE, Stop date: 12/27/17 9:12:00 KNAPSACK SPRAYER fentaNYL 2017-02 No Route: IV, Mem oria (ANES) 02-26 Drug form: l 15:12: INJ, ONCE, Stop date: 12/27/17 9:12:00 KNAPSACK SPRAYER lidocaine 2017-02 No Route: IV, moria (ANES) 02-26 Drug form: l 15:12: INJ, ONCE, Stop date: 12/27/17 9:12:00 KNAPSACK SPRAYER rocuronium 2017-02 No Route: IV, Ami emoria (ANES) 02-26 Drug form: l 15:12: INJ, ONCE, Stop date: 12/27/17 9:12:00 KNAPSACK SPRAYER propofol 2017-02 No Route: IV, Mem oria (ANES) 02-26 Drug form: l 15:12: INJ, ONCE, Stop date: 12/27/17 9:12:00 KNAPSACK SPRAYER fentaNYL 2017-02 No Route: IV, Mem oria (ANES) 02-26 Drug form: l 15:12: INJ, ONCE, Stop date: 12/27/17 9:12:00 KNAPSACK SPRAYER lidocaine 2017-02 No Route: IV, moria (ANES) 02-26 Drug form: l 15:12: INJ, ONCE, Stop date: 12/27/17 9:12:00 KNAPSACK SPRAYER rocuronium 2017-02 No Route: IV, Ami emoria (ANES) 02-26 Drug form: l 15:12: INJ, ONCE, Stop date: 12/27/17 9:12:00 KNAPSACK SPRAYER propofol 2017-02 No Route: IV, Mem oria (ANES) 02-26 Drug form: l 15:12: INJ, ONCE, Stop date: 12/27/17 9:12:00 KNAPSACK SPRAYER fentaNYL 2017-02 No Route: IV, Mem oria (ANES) 02-26 Drug form: l 15:12: INJ, ONCE, Stop date: 12/27/17 9:12:00 KNAPSACK SPRAYER lidocaine 2017-02 No Route: IV, Me moria (ANES) 02-26 Drug form: l 15:12: INJ, ONCE, Stop date: 12/27/17 9:12:00 KNAPSACK SPRAYER rocuronium 2017-02 No Route: IV, M emoria (ANES) 02-26 Drug form: l 15:12: INJ, ONCE, Stop date: 12/27/17 9:12:00 KNAPSACK SPRAYER propofol 2017-02 No Route: IV, Mem oria (ANES) 02-26 Drug form: l 15:12: INJ, ONCE, Stop date: 12/27/17 9:12:00 KNAPSACK SPRAYER fentaNYL 2017-02 No Route: IV, Mem oria (ANES) 02-26 Drug form: l 15:12: INJ, ONCE, Stop date: 12/27/17 9:12:00 KNAPSACK SPRAYER lidocaine 2017-02 No Route: IV, Me moria (ANES) 02-26 Drug form: l 15:12: INJ, ONCE, Stop date: 12/27/17 9:12:00 KNAPSACK SPRAYER rocuronium 2017-02 No Route: IV, Ami emoria (ANES) 02-26 Drug form: l 15:12: INJ, ONCE, Stop date: 12/27/17 9:12:00 KNAPSACK SPRAYER propofol 2017-02 No Route: IV, Mem oria (ANES) 02-26 Drug form: l 15:12: INJ, ONCE, Stop date: 12/27/17 9:12:00 KNAPSACK SPRAYER ePHEDrine 2017-02 No Route: IV, Me moria (ANES) 02-26 Drug form: l 15:07: INJ, ONCE, Stop date: 12/27/17 9:07:00 KNAPSACK SPRAYER ePHEDrine 2017-02 No Route: IV, Me moria (ANES) 02-26 Drug form: l 15:07: INJ, ONCE, Stop date: 12/27/17 9:07:00 KNAPSACK SPRAYER ePHEDrine 2017-02 No Route: IV, Me moria (ANES) 02-26 Drug form: l 15:07: INJ, ONCE, Stop date: 12/27/17 9:07:00 KNAPSACK SPRAYER ePHEDrine 2017-02 No Route: IV, Me moria (ANES) 02-26 Drug form: l 15:07: INJ, ONCE, Stop date: 12/27/17 9:07:00 KNAPSACK SPRAYER ePHEDrine 2017-02 No Route: IV, Me moria (ANES) 02-26 Drug form: l 15:07: INJ, ONCE, Stop date: 12/27/17 9:07:00 KNAPSACK SPRAYER ePHEDrine 2017-02 No Route: IV, Me moria (ANES) 02-26 Drug form: l 15:07: INJ, ONCE, Stop date: 12/27/17 9:07:00 KNAPSACK SPRAYER ePHEDrine 2017-02 No Route: IV, Me moria (ANES) 02-26 Drug form: l 15:07: INJ, ONCE, Stop date: 12/27/17 9:07:00 KNAPSACK SPRAYER ceFAZolin 2017-02 No Route: IV, Me moria (ANES) 02-26 Drug form: l 14:47: INJ, ONCE, Stop date: 12/27/17 8:47:00 KNAPSACK SPRAYER ceFAZolin 2017-02 No Route: IV, Me moria (ANES) 02-26 Drug form: l 14:47: INJ, ONCE, Stop date: 12/27/17 8:47:00 KNAPSACK SPRAYER ceFAZolin 2017-02 No Route: IV, Me moria (ANES) 02-26 Drug form: l 14:47: INJ, ONCE, Stop date: 12/27/17 8:47:00 KNAPSACK SPRAYER ceFAZolin 2017-02 No Route: IV, Me moria (ANES) 02-26 Drug form: l 14:47: INJ, ONCE, Stop date: 12/27/17 8:47:00 KNAPSACK SPRAYER ceFAZolin 2017-02 No Route: IV, Me moria (ANES) 02-26 Drug form: l 14:47: INJ, ONCE, Stop date: 12/27/17 8:47:00 KNAPSACK SPRAYER ceFAZolin 2017-02 No Route: IV, Me moria (ANES) 02-26 Drug form: l 14:47: INJ, ONCE, Daryn Stop date: 12/27/17 8:47:00 KNAPSACK SPRAYER ceFAZolin 2017-02 No Route: IV, Me moria (ANES) 02-26 Drug form: l 14:47: INJ, ONCE, Daryn Stop date: 12/27/17 8:47:00 KNAPSACK SPRAYER Sodium 2017-02 No Route: IV, Memor ia Chloride 02-26 Total l 0.9% IV 14:22: Volume: Daryn (ANES) 500 00 500, Start mL date: 12/27/17 8:22:00 KNAPSACK SPRAYER, Stop date: 12/27/17 9:22:00 KNAPSACK SPRAYER dexmedetomi 2017-02 No Route: IV, Memoria dine (ANES) 02-26 Drug form: l 200 14:22: INJ, Start Dime Box microgram date: 12/27/17 8:22:00 KNAPSACK SPRAYER, Stop date: 12/27/17 9:22:00 KNAPSACK SPRAYER Sodium 2017-02 No Route: IV, Memor ia Chloride 02-26 Total l 0.9% IV 14:22: Volume: Daryn (ANES) 500 00 500, Start mL date: 12/27/17 8:22:00 KNAPSACK SPRAYER, Stop date: 12/27/17 9:22:00 KNAPSACK SPRAYER dexmedetomi 2017-02 No Route: IV, Memoria dine (ANES) 02-26 Drug form: l 200 14:22: INJ, Start Daryn microgram date: 12/27/17 8:22:00 KNAPSACK SPRAYER, Stop date: 12/27/17 9:22:00 KNAPSACK SPRAYER Sodium 2017-02 No Route: IV, Memor ia Chloride 02-26 Total l 0.9% IV 14:22: Volume: Dime Box (ANES) 500 00 500, Start mL date: 12/27/17 8:22:00 KNAPSACK SPRAYER, Stop date: 12/27/17 9:22:00 KNAPSACK SPRAYER dexmedetomi 2017-02 No Route: IV, Memoria dine (ANES) 02-26 Drug form: l 200 14:22: INJ, Start Dime Box microgram date: 12/27/17 8:22:00 KNAPSACK SPRAYER, Stop date: 12/27/17 9:22:00 KNAPSACK SPRAYER Sodium 2017-02 No Route: IV, Memor ia Chloride 1-09 Total l 0.9% IV 14:22: Volume: Dime Box (ANES) 500 00 500, Start mL date: 12/27/17 8:22:00 KNAPSACK SPRAYER, Stop date: 12/27/17 9:22:00 KNAPSACK SPRAYER dexmedetomi 2017-02 No Route: IV, Memoria dine (ANES) 02-26 Drug form: l 200 14:22: INJ, Start Dime Box microgram 00 date: 12/27/17 8:22:00 KNAPSACK SPRAYER, Stop date: 12/27/17 9:22:00 KNAPSACK SPRAYER Sodium 2017-02 No Route: IV, Memor ia Chloride 1-09 Total l 0.9% IV 14:22: Volume: Daryn (ANES) 500 00 500, Start mL date: 12/27/17 8:22:00 KNAPSACK SPRAYER, Stop date: 12/27/17 9:22:00 KNAPSACK SPRAYER dexmedetomi 2017-02 No Route: IV, Memoria dine (ANES) 02-26 Drug form: l 200 14:22: INJ, Start Daryn microgram 00 date: 12/27/17 8:22:00 KNAPSACK SPRAYER, Stop date: 12/27/17 9:22:00 KNAPSACK SPRAYER Sodium 2017-02 No Route: IV, Memor ia Chloride 02-26 Total l 0.9% IV 14:22: Volume: Dime Box (ANES) 500 00 500, Start mL date: 12/27/17 8:22:00 KNAPSACK SPRAYER, Stop date: 12/27/17 9:22:00 KNAPSACK SPRAYER dexmedetomi 2017-02 No Route: IV, Memoria dine (ANES) 02-26 Drug form: l 200 14:22: INJ, Start Dime Box microgram 00 date: 12/27/17 8:22:00 KNAPSACK SPRAYER, Stop date: 12/27/17 9:22:00 KNAPSACK SPRAYER Sodium 2018 No Route: IV, Memor ia Chloride 1-09 Total l 0.9% IV 14:22: Volume: Daryn (ANES) 500 00 500, Start mL date: 12/27/17 8:22:00 KNAPSACK SPRAYER, Stop date: 12/27/17 9:22:00 KNAPSACK SPRAYER dexmedetomi 2017-02 No Route: IV, Memoria dine (ANES) - Drug form: l 200 14:22: INJ, Start Dime Box microgram 00 date: 12/27/17 8:22:00 KNAPSACK SPRAYER, Stop date: 12/27/17 9:22:00 KNAPSACK SPRAYER Lactated 2017-02 No Route: IV, Mem oria Ringers 1-09 Total l Injection 13:32: Volume: Shea nn IV (ANES) 00 1,000, 1000 mL Start date: 12/27/17 7:32:00 KNAPSACK SPRAYER, Stop date: 12/27/17 8:32:00 KNAPSACK SPRAYER Lactated 2017-02 No Route: IV, Mem oria Ringers -09 Total l Injection 13:32: Volume: Shea nn IV (ANES) 00 1,000, 1000 mL Start date: 12/27/17 7:32:00 KNAPSACK SPRAYER, Stop date: 12/27/17 8:32:00 KNAPSACK SPRAYER Lactated 2017-02 No Route: IV, Mem oria Ringers 1-09 Total l Injection 13:32: Volume: Shea nn IV (ANES) 00 1,000, 1000 mL Start date: 12/27/17 7:32:00 KNAPSACK SPRAYER, Stop date: 12/27/17 8:32:00 KNAPSACK SPRAYER Lactated 2017-02 No Route: IV, Mem oria Ringers 1-09 Total l Injection 13:32: Volume: Shea nn IV (ANES) 00 1,000, 1000 mL Start date: 12/27/17 7:32:00 KNAPSACK SPRAYER, Stop date: 12/27/17 8:32:00 KNAPSACK SPRAYER Lactated 2017-02 No Route: IV, Mem oria Ringers 1-09 Total l Injection 13:32: Volume: Shea nn IV (ANES) 00 1,000, 1000 mL Start date: 12/27/17 7:32:00 KNAPSACK SPRAYER, Stop date: 12/27/17 8:32:00 KNAPSACK SPRAYER Lactated 2017-02 No Route: IV, Mem oria Ringers 1-09 Total l Injection 13:32: Volume: Shea nn IV (ANES) 00 1,000, 1000 mL Start date: 12/27/17 7:32:00 KNAPSACK SPRAYER, Stop date: 12/27/17 8:32:00 KNAPSACK SPRAYER Lactated 2017-02 No Route: IV, Mem oria Ringers 1-09 Total l Injection 13:32: Volume: Shea nn IV (ANES) 00 1,000, 1000 mL Start date: 12/27/17 7:32:00 KNAPSACK SPRAYER, Stop date: 12/27/17 8:32:00 KNAPSACK SPRAYER ceFAZolin + 2017-02 No Notes: Truong martha sterile 02-26 (Same As: l water 20 mL 09:00: Ancef, Herm maggie 00 Kefzol) MEDICATION WASTE Product Size: 1000 mg Product Wasted: ___ mg ceFAZolin + 2017-02 No Notes: Truong martha sterile 02-26 (Same As: l water 20 mL 09:00: Ancef, Herm maggie 00 Kefzol) MEDICATION WASTE Product Size: 1000 mg Product Wasted: ___ mg ceFAZolin + 2017-02 No Notes: Truong martha sterile 02-26 (Same As: l water 20 mL 09:00: Ancef, Herm maggie 00 Kefzol) MEDICATION WASTE Product Size: 1000 mg Product Wasted: ___ mg ceFAZolin + 2017-02 No Notes: Truong martha sterile 02-26 (Same As: l water 20 mL 09:00: Ancef, Herm maggie 00 Kefzol) MEDICATION WASTE Product Size: 1000 mg Product Wasted: ___ mg ceFAZolin + 2017-02 No Notes: Truong martha sterile 02-26 (Same As: l water 20 mL 09:00: Ancef, Herm maggie 00 Kefzol) MEDICATION WASTE Product Size: 1000 mg Product Wasted: ___ mg ceFAZolin + 2017-02 No Notes: Truong martha sterile 02-26 (Same As: l water 20 mL 09:00: Ancef, Herm maggie 00 Kefzol) MEDICATION WASTE Product Size: 1000 mg Product Wasted: ___ mg ceFAZolin + 2017-02 No Notes: Truong martha sterile 02-26 (Same As: l water 20 mL 09:00: Ancef, Herm maggie 00 Kefzol) MEDICATION WASTE Product Size: 1000 mg Product Wasted: ___ mg Unknown 2017-02 No HYDROCODON Truong martha Home 0-30 E, l Medication 17:08: Refill(s) He rmann 00 0 Unknown 2017-02 No HYDROCODON Truong martha Home 0-30 E, l Medication 17:08: Refill(s) He rmann 00 0 Unknown 2017-02 No HYDROCODON Truong martha Home 0-30 E, l Medication 17:08: Refill(s) He rmann 00 0 Unknown 2017-02 No HYDROCODON Truong martha Home 0-30 E, l Medication 17:08: Refill(s) He rmann 0 Unknown 2017-02 No HYDROCODON Truong martha Home 0-30 E, l Medication 17:08: Refill(s) He rmann 00 0 Unknown 2017-02 No HYDROCODON Truong martha Home 0-30 E, l Medication 17:08: Refill(s) He rmann 0 Unknown 2017-02 No HYDROCODON Truong martha Home 0-30 E, l Medication 17:08: Refill(s) He rmann 00 0 Naproxen 2017-02 Yes PO, 0 Memoria 0-30 Refill(s) l 13:19: Dime Box 00 Mefloquine 2017-02 No 250 mg, Truong martha 0-30 PO, ONCE, l 13:19: 0 Daryn 00 Refill(s) pioglitazon 2017-02 Yes PO, Daily, Memoria e 0-30 0 l 13:19: Refill(s) Naproxen 2017-02 Yes PO, 0 Memoria 0-30 Refill(s) l 13:19: Daryn 00 Mefloquine 2017-02 No 250 mg, Truong martha 0-30 PO, ONCE, l 13:19: 0 Daryn 00 Refill(s) pioglitazon 2017-02 Yes PO, Daily, Memoria e 0-30 0 l 13:19: Refill(s) Naproxen 2017-02 Yes PO, 0 Memoria 0-30 Refill(s) l 13:19: Daryn 00 Mefloquine 2017-02 No 250 mg, Truong martha 0-30 PO, ONCE, l 13:19: 0 Dime Box 00 Refill(s) pioglitazon 2017-02 Yes PO, Daily, Memoria e 0-30 0 l 13:19: Refill(s) Naproxen 2017-02 Yes PO, 0 Memoria 0-30 Refill(s) l 13:19: Mefloquine 2017-02 No 250 mg, Truong martha 0-30 PO, ONCE, l 13:19: 0 Refill(s) pioglitazon 2017-02 Yes PO, Daily, Memoria e 0-30 0 l 13:19: Refill(s) Naproxen 2017-02 Yes PO, 0 Memoria 0-30 Refill(s) l 13:19: Mefloquine 2017-02 No 250 mg, Truong martha 0-30 PO, ONCE, l 13:19: 0 Refill(s) pioglitazon 2017-02 Yes PO, Daily, Memoria e 0-30 0 l 13:19: Refill(s) Naproxen 2017-02 Yes PO, 0 Memoria 0-30 Refill(s) l 13:19: Mefloquine 2017-02 No 250 mg, Truong martha 0-30 PO, ONCE, l 13:19: 0 Daryn 00 Refill(s) pioglitazon 2017-02 Yes PO, Daily, Memoria e 0-30 0 l 13:19: Refill(s) Naproxen 2017-02 Yes PO, 0 Memoria 0-30 Refill(s) l 13:19: Mefloquine 2017-02 No 250 mg, Truong martha 0-30 PO, ONCE, l 13:19: 0 Refill(s) pioglitazon 2017-02 Yes PO, Daily, Memoria e 0-30 0 l 13:19: Refill(s) xiga Yes 10 mg = 1 Me moria mg oral 9-13 tab, PO, l tablet 14:56: Daily, 0 Daryn 00 Refill(s) Januvia 100 Yes 100 mg = 1 Memoria mg oral 9-13 tab, PO, l tablet 14:56: Daily, 0 Daryn 00 Refill(s) Farxiga 10 Yes 10 mg = 1 Me moria mg oral 9-13 tab, PO, l tablet 14:56: Daily, 0 Dime Box 00 Refill(s) Januvia 100 2018-0 Yes 100 mg = 1 Memoria mg oral 9-13 tab, PO, l tablet 14:56: Daily, 0 Dime Box 00 Refill(s) Promethazin 2016-0 Yes 25 mg = 1 M emoria e 3-19 tab, PO, l Hydrochlori 16:11: Q6H, PRN He rmann de 25 MG 00 Nausea, X Oral Tablet 4 day, # [Phenergan] 15 tab, 0 Refill(s) Promethazin 2015-0 Yes 25 mg = 1 M emoria e 3-19 tab, PO, l Hydrochlori 16:11: Q6H, PRN He rmann de 25 MG 00 Nausea, X Oral Tablet 4 day, # [Phenergan] 15 tab, 0 Refill(s) Promethazin 0 Yes 25 mg = 1 M emoria e 3-19 tab, PO, l Hydrochlori 16:11: Q6H, PRN He rmann de 25 MG 00 Nausea, X Oral Tablet 4 day, # [Phenergan] 15 tab, 0 Refill(s) Promethazin 0 Yes 25 mg = 1 M emoria e 3- tab, PO, l Hydrochlori 16:11: Q6H, PRN He rmann de 25 MG 00 Nausea, X Oral Tablet 4 day, # [Phenergan] 15 tab, 0 Refill(s) Promethazin 0 Yes 25 mg = 1 M emoria e 3-19 tab, PO, l Hydrochlori 16:11: Q6H, PRN He rmann de 25 MG 00 Nausea, X Oral Tablet 4 day, # [Phenergan] 15 tab, 0 Refill(s) Promethazin 2015-0 Yes 25 mg = 1 M emoria e 3-19 tab, PO, l Hydrochlori 16:11: Q6H, PRN He rmann de 25 MG 00 Nausea, X Oral Tablet 4 day, # [Phenergan] 15 tab, 0 Refill(s) Promethazin 2016-0 Yes 25 mg = 1 M emoria e 3-19 tab, PO, l Hydrochlori 16:11: Q6H, PRN He rmann de 25 MG 00 Nausea, X Oral Tablet 4 day, # [Phenergan] 15 tab, 0 Refill(s) Ramipril No Notes: Memoria 3-19 (Same l 14:00: as:Altace) Omeprazole No 40 mg, Memor ia 3-19 Route: PO, l 14:00: Drug form: Daryn 00 DRC, Daily, Dosing Weight 104.545, kg, Start date: 05/07/15 9:00:00, 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 day, Stop date: 06/05/15 9:00:00 pneumococca No Notes: Truong martha l capsular 3-19 (Same as: l polysacchar 14:00: Pneumovax H ermann fiona type 1 00 23) vaccine / Refrigerat pneumococca e l capsular polysacchar fiona type 10A vaccine / pneumococca l capsular polysacchar fiona type 11A vaccine / pneumococca l capsular polysacchar fiona type 12F vaccine / pneumococca l capsular polysacchar influenza No Notes: Memori a virus 3-19 (Same as: l vaccine, 14:00: Fluzone Luis n inactivated 00 Quadrivale nt) For 3 years of age and older (0.5 mL IM) Shake well before use Protonix No Notes: Memoria 3-19 Tablet l 14:00: should not be chewed or crushed. (Same as: Protonix) Ramipril No Notes: Memoria 3-19 (Same l 14:00: as:Altace) Omeprazole No 40 mg, Memor ia 3-19 Route: PO, l 14:00: Drug form: Daryn 00 DRC, Daily, Dosing Weight 104.545, kg, Start date: 05/07/15 9:00:00, 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 day, Stop date: 06/05/15 9:00:00 pneumococca 0 No Notes: Truong martha l capsular 3-19 (Same as: l polysacchar 14:00: Pneumovax H ermann fiona type 1 00 23) vaccine / Refrigerat pneumococca e l capsular polysacchar fiona type 10A vaccine / pneumococca l capsular polysacchar fiona type 11A vaccine / pneumococca l capsular polysacchar fiona type 12F vaccine / pneumococca l capsular polysacchar influenza No Notes: Memori a virus 3-19 (Same as: l vaccine, 14:00: Fluzone Luis n inactivated 00 Quadrivale nt) For 3 years of age and older (0.5 mL IM) Shake well before use Protonix 2015-0 No Notes: Memoria 3-19 Tablet l 14:00: should not Daryn 00 be chewed or crushed. (Same as: Protonix) Ramipril 2015-0 No Notes: Memoria 3-19 (Same l 14:00: as:Altace) Dime Box Omeprazole 2015-0 No 40 mg, Memor ia 3-19 Route: PO, l 14:00: Drug form: Daryn 00 DRC, Daily, Dosing Weight 104.545, kg, Start date: 05/07/15 9:00:00, 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 day, Stop date: 06/05/15 9:00:00 pneumococca 2016-0 No Notes: Truong martha l capsular 3-19 (Same as: l polysacchar 14:00: Pneumovax H ermann fiona type 1 00 23) vaccine / Refrigerat pneumococca e l capsular polysacchar fiona type 10A vaccine / pneumococca l capsular polysacchar fiona type 11A vaccine / pneumococca l capsular polysacchar fiona type 12F vaccine / pneumococca l capsular polysacchar influenza No Notes: Memori a virus 3-19 (Same as: l vaccine, 14:00: Fluzone Luis n inactivated 00 Quadrivale nt) For 3 years of age and older (0.5 mL IM) Shake well before use Protonix 2015-0 No Notes: Memoria 3-19 Tablet l 14:00: should not Daryn 00 be chewed or crushed. (Same as: Protonix) Ramipril 2015-0 No Notes: Memoria 3-19 (Same l 14:00: as:Altace) Daryn Omeprazole 2015-0 No 40 mg, Memor ia 3-19 Route: PO, l 14:00: Drug form: Dime Box 00 DRC, Daily, Dosing Weight 104.545, kg, Start date: 05/07/15 9:00:00, 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 day, Stop date: 06/05/15 9:00:00 pneumococca 2016-0 No Notes: Truong martha l capsular 3-19 (Same as: l polysacchar 14:00: Pneumovax H ermann fiona type 1 00 23) vaccine / Refrigerat pneumococca e l capsular polysacchar fiona type 10A vaccine / pneumococca l capsular polysacchar fiona type 11A vaccine / pneumococca l capsular polysacchar fiona type 12F vaccine / pneumococca l capsular polysacchar influenza No Notes: Memori a virus 3-19 (Same as: l vaccine, 14:00: Fluzone Luis n inactivated 00 Quadrivale nt) For 3 years of age and older (0.5 mL IM) Shake well before use Protonix No Notes: Memoria 3-19 Tablet l 14:00: should not Daryn 00 be chewed or crushed. (Same as: Protonix) Ramipril No Notes: Memoria 3-19 (Same l 14:00: as:Altace) Daryn 00 Omeprazole No 40 mg, Memor ia 3-19 Route: PO, l 14:00: Drug form: Daryn DRC, Daily, Dosing Weight 104.545, kg, Start date: 05/07/15 9:00:00, 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 day, Stop date: 06/05/15 9:00:00 pneumococca No Notes: Truong martha l capsular 3-19 (Same as: l polysacchar 14:00: Pneumovax H ermann fiona type 1 23) vaccine / Refrigerat pneumococca e l capsular polysacchar fiona type 10A vaccine / pneumococca l capsular polysacchar fiona type 11A vaccine / pneumococca l capsular polysacchar fiona type 12F vaccine / pneumococca l capsular polysacchar influenza No Notes: Memori a virus 3-19 (Same as: l vaccine, 14:00: Fluzone Luis n inactivated 00 Quadrivale nt) For 3 years of age and older (0.5 mL IM) Shake well before use Protonix 0 No Notes: Memoria 3-19 Tablet l 14:00: should not Daryn 00 be chewed or crushed. (Same as: Protonix) Ramipril No Notes: Memoria 3-19 (Same l 14:00: as:Altace) Daryn Omeprazole 2015-0 No 40 mg, Memor ia 3-19 Route: PO, l 14:00: Drug form: Dime Box DRC, Daily, Dosing Weight 104.545, kg, Start date: 05/07/15 9:00:00, 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 day, Stop date: 06/05/15 9:00:00 pneumococca No Notes: Truong martha l capsular 3-19 (Same as: l polysacchar 14:00: Pneumovax H ermann fiona type 1 23) vaccine / Refrigerat pneumococca e l capsular polysacchar fiona type 10A vaccine / pneumococca l capsular polysacchar fiona type 11A vaccine / pneumococca l capsular polysacchar fiona type 12F vaccine / pneumococca l capsular polysacchar influenza No Notes: Memori a virus 3-19 (Same as: l vaccine, 14:00: Fluzone Luis n inactivated 00 Quadrivale nt) For 3 years of age and older (0.5 mL IM) Shake well before use Protonix No Notes: Memoria 3-19 Tablet l 14:00: should not Dime Box 00 be chewed or crushed. (Same as: Protonix) Ramipril No Notes: Memoria 3-19 (Same l 14:00: as:Altace) Daryn 00 Omeprazole No 40 mg, Memor ia 3-19 Route: PO, l 14:00: Drug form: Dime Box DRC, Daily, Dosing Weight 104.545, kg, Start date: 05/07/15 9:00:00, 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 day, Stop date: 06/05/15 9:00:00 pneumococca No Notes: Truong martha l capsular 3-19 (Same as: l polysacchar 14:00: Pneumovax H ermann fiona type 1 23) vaccine / Refrigerat pneumococca e l capsular polysacchar fiona type 10A vaccine / pneumococca l capsular polysacchar fiona type 11A vaccine / pneumococca l capsular polysacchar fiona type 12F vaccine / pneumococca l capsular polysacchar influenza No Notes: Memori a virus 3-19 (Same as: l vaccine, 14:00: Fluzone Luis n inactivated 00 Quadrivale nt) For 3 years of age and older (0.5 mL IM) Shake well before use Protonix No Notes: Memoria 3-19 Tablet l 14:00: should not Dime Box 00 be chewed or crushed. (Same as: Protonix) Acetaminoph 2016-0 Yes 1-2 tab, Me moria en 325 MG / 3-19 PO, Q4H, l Hydrocodone 13:22: PRN as Herm maggie Bitartrate 00 needed for 10 MG Oral pain, # 90 Tablet tab, 1 [[place] Refill(s) 10/325] Cyclobenzap 0 Yes 10 mg, PO, Memoria rine 3-19 TID, PRN l hydrochlori 13:22: Muscle Herm maggie de 10 MG 00 Spasm, X Oral Tablet 10 day, # [Flexeril] 30 tab, 1 Refill(s) docusate 2016-0 Yes 100 mg = 1 Mem oria sodium 100 3-19 cap, PO, l mg oral 13:22: BID, PRN Luis n capsule 00 Constipati on, # 20 cap, 0 Refill(s) Acetaminoph Yes 1-2 tab, Me moria en 325 MG / 3-19 PO, Q4H, l Hydrocodone 13:22: PRN as Herm maggie Bitartrate 00 needed for 10 MG Oral pain, # 90 Tablet tab, 1 [[place] Refill(s) 10/325] Cyclobenzap Yes 10 mg, PO, Memoria rine 3-19 TID, PRN l hydrochlori 13:22: Muscle Herm maggie de 10 MG 00 Spasm, X Oral Tablet 10 day, # [Flexeril] 30 tab, 1 Refill(s) docusate 2015-0 Yes 100 mg = 1 Mem oria sodium 100 3-19 cap, PO, l mg oral 13:22: BID, PRN Luis n capsule 00 Constipati on, # 20 cap, 0 Refill(s) Acetaminoph 2016-0 Yes 1-2 tab, Me moria en 325 MG / 3-19 PO, Q4H, l Hydrocodone 13:22: PRN as Herm maggie Bitartrate 00 needed for 10 MG Oral pain, # 90 Tablet tab, 1 [[place] Refill(s) 10/325] Cyclobenzap 2015-0 Yes 10 mg, PO, Memoria rine 3-19 TID, PRN l hydrochlori 13:22: Muscle Herm maggie de 10 MG 00 Spasm, X Oral Tablet 10 day, # [Flexeril] 30 tab, 1 Refill(s) docusate Yes 100 mg = 1 Mem oria sodium 100 3-19 cap, PO, l mg oral 13:22: BID, PRN Luis n capsule 00 Constipati on, # 20 cap, 0 Refill(s) Acetaminoph 0 Yes 1-2 tab, Me moria en 325 MG / 3-19 PO, Q4H, l Hydrocodone 13:22: PRN as Herm maggie Bitartrate 00 needed for 10 MG Oral pain, # 90 Tablet tab, 1 [[place] Refill(s) 10/325] Cyclobenzap Yes 10 mg, PO, Memoria rine 3-19 TID, PRN l hydrochlori 13:22: Muscle Herm maggie de 10 MG 00 Spasm, X Oral Tablet 10 day, # [Flexeril] 30 tab, 1 Refill(s) docusate Yes 100 mg = 1 Mem oria sodium 100 3-19 cap, PO, l mg oral 13:22: BID, PRN Luis n capsule 00 Constipati on, # 20 cap, 0 Refill(s) Acetaminoph Yes 1-2 tab, Me moria en 325 MG / 3-19 PO, Q4H, l Hydrocodone 13:22: PRN as Herm maggie Bitartrate 00 needed for 10 MG Oral pain, # 90 Tablet tab, 1 [[place] Refill(s) 10/325] Cyclobenzap Yes 10 mg, PO, Memoria rine 3-19 TID, PRN l hydrochlori 13:22: Muscle Herm maggie de 10 MG 00 Spasm, X Oral Tablet 10 day, # [Flexeril] 30 tab, 1 Refill(s) docusate Yes 100 mg = 1 Mem oria sodium 100 3-19 cap, PO, l mg oral 13:22: BID, PRN Luis n capsule 00 Constipati on, # 20 cap, 0 Refill(s) Acetaminoph 0 Yes 1-2 tab, Me moria en 325 MG / 3-19 PO, Q4H, l Hydrocodone 13:22: PRN as Herm maggie Bitartrate 00 needed for 10 MG Oral pain, # 90 Tablet tab, 1 [[place] Refill(s) 10/325] Cyclobenzap Yes 10 mg, PO, Memoria rine 3-19 TID, PRN l hydrochlori 13:22: Muscle Herm maggie de 10 MG 00 Spasm, X Oral Tablet 10 day, # [Flexeril] 30 tab, 1 Refill(s) docusate Yes 100 mg = 1 Mem oria sodium 100 3-19 cap, PO, l mg oral 13:22: BID, PRN Luis n capsule 00 Constipati on, # 20 cap, 0 Refill(s) Acetaminoph Yes 1-2 tab, Me moria en 325 MG / 3-19 PO, Q4H, l Hydrocodone 13:22: PRN as Herm maggie Bitartrate 00 needed for 10 MG Oral pain, # 90 Tablet tab, 1 [[place] Refill(s) 10/325] Cyclobenzap Yes 10 mg, PO, Memoria rine 3-19 TID, PRN l hydrochlori 13:22: Muscle Herm maggie de 10 MG 00 Spasm, X Oral Tablet 10 day, # [Flexeril] 30 tab, 1 Refill(s) docusate Yes 100 mg = 1 Mem oria sodium 100 3-19 cap, PO, l mg oral 13:22: BID, PRN Luis n capsule 00 Constipati on, # 20 cap, 0 Refill(s) Simvastatin No Notes: Truong martha 3-19 (Same as: l 02:00: Zocor) Dime Box 00 Saline No Notes: Memoria Flush 0.9% 3-19 (Same as: l 02:00: BD Dime Box 00 Posiflush) sennosides, No Notes: Truong martha LONGTERM 3-19 (Same as: l 02:00: Senokot) Daryn 00 Famotidine No Notes: Memor ia 3-19 (Same as: l 02:00: Pepcid) Dime Box 00 Can be dilute in 5-10cc NS IVP: Slow IV push over at least 2 minutes. Docusate No Notes: Memoria 3-19 (Same as: l 02:00: Colace) Dime Box 00 (Do Not Crush) Simvastatin No Notes: Truong martha 3-19 (Same as: l 02:00: Zocor) Dime Box 00 Saline No Notes: Memoria Flush 0.9% 3-19 (Same as: l 02:00: BD Daryn 00 Posiflush) sennosides, No Notes: Truong martha LONGTERM 3-19 (Same as: l 02:00: Senokot) Dime Box 00 Famotidine No Notes: Memor ia 3-19 (Same as: l 02:00: Pepcid) Daryn 00 Can be dilute in 5-10cc NS IVP: Slow IV push over at least 2 minutes. Docusate No Notes: Memoria 3-19 (Same as: l 02:00: Colace) Dime Box 00 (Do Not Crush) Simvastatin No Notes: Truong martha 3-19 (Same as: l 02:00: Zocor) Dime Box 00 Saline No Notes: Memoria Flush 0.9% 3-19 (Same as: l 02:00: BD Dime Box 00 Posiflush) sennosides, No Notes: Truong martha LONGTERM 3-19 (Same as: l 02:00: Senokot) Dime Box 00 Famotidine No Notes: Memor ia 3-19 (Same as: l 02:00: Pepcid) Daryn 00 Can be dilute in 5-10cc NS IVP: Slow IV push over at least 2 minutes. Docusate No Notes: Memoria 3-19 (Same as: l 02:00: Colace) Dime Box 00 (Do Not Crush) Simvastatin No Notes: Truong martha 3-19 (Same as: l 02:00: Zocor) Daryn 00 Saline No Notes: Memoria Flush 0.9% 3-19 (Same as: l 02:00: BD Dime Box 00 Posiflush) sennosides, No Notes: Truong martha LONGTERM 3-19 (Same as: l 02:00: Senokot) Daryn 00 Famotidine No Notes: Memor ia 3-19 (Same as: l 02:00: Pepcid) Daryn 00 Can be dilute in 5-10cc NS IVP: Slow IV push over at least 2 minutes. Docusate No Notes: Memoria 3-19 (Same as: l 02:00: Colace) Dime Box 00 (Do Not Crush) Simvastatin No Notes: Truong martha 3-19 (Same as: l 02:00: Zocor) Dime Box 00 Saline No Notes: Memoria Flush 0.9% 3-19 (Same as: l 02:00: BD Daryn 00 Posiflush) sennosides, No Notes: Truong martha LONGTERM 3-19 (Same as: l 02:00: Senokot) Daryn 00 Famotidine No Notes: Memor ia 3-19 (Same as: l 02:00: Pepcid) Dime Box 00 Can be dilute in 5-10cc NS IVP: Slow IV push over at least 2 minutes. Docusate No Notes: Memoria 3-19 (Same as: l 02:00: Colace) Daryn 00 (Do Not Crush) Simvastatin No Notes: Truong martha 3-19 (Same as: l 02:00: Zocor) Dime Box 00 Saline No Notes: Memoria Flush 0.9% 3-19 (Same as: l 02:00: BD Dime Box 00 Posiflush) sennosides, No Notes: Truong martha LONGTERM 3-19 (Same as: l 02:00: Senokot) Dime Box 00 Famotidine No Notes: Memor ia 3-19 (Same as: l 02:00: Pepcid) Daryn 00 Can be dilute in 5-10cc NS IVP: Slow IV push over at least 2 minutes. Docusate No Notes: Memoria 3-19 (Same as: l 02:00: Colace) Daryn 00 (Do Not Crush) Simvastatin No Notes: Truong martha 3-19 (Same as: l 02:00: Zocor) Daryn 00 Saline No Notes: Memoria Flush 0.9% 3-19 (Same as: l 02:00: BD Daryn 00 Posiflush) sennosides, No Notes: Truong martha LONGTERM 3-19 (Same as: l 02:00: Senokot) Dime Box 00 Famotidine No Notes: Memor ia 05-06 (Same as: l 02:00: Pepcid) Dime Box 00 Can be dilute in 5-10cc NS IVP: Slow IV push over at least 2 minutes. Docusate No Notes: Memoria 05-06 (Same as: l 02:00: Colace) Daryn 00 (Do Not Crush) ceFAZolin Yes Notes: Memori a (SCIP) + -19 (Same As: l Sodium 01:00: Ancef, Dime Box Chloride 00 Kefzol) 0.9% IV 100 Cefazolin mL FOR IV SET ONLY MEDICATION WASTE Product Size: 1000 mg Product Wasted: _0__ mg ceFAZolin Yes Notes: Memori a (SCIP) + -19 (Same As: l Sodium 01:00: Ancef, Daryn Chloride 00 Kefzol) 0.9% IV 100 Cefazolin mL FOR IV SET ONLY MEDICATION WASTE Product Size: 1000 mg Product Wasted: _0__ mg ceFAZolin Yes Notes: Memori a (SCIP) + -19 (Same As: l Sodium 01:00: Ancef, Daryn Chloride 00 Kefzol) 0.9% IV 100 Cefazolin mL FOR IV SET ONLY MEDICATION WASTE Product Size: 1000 mg Product Wasted: _0__ mg ceFAZolin Yes Notes: Memori a (SCIP) + -19 (Same As: l Sodium 01:00: Ancef, Daryn Chloride 00 Kefzol) 0.9% IV 100 Cefazolin mL FOR IV SET ONLY MEDICATION WASTE Product Size: 1000 mg Product Wasted: _0__ mg ceFAZolin Yes Notes: Memori a (SCIP) + 3-19 (Same As: l Sodium 01:00: Ancef, Daryn Chloride 00 Kefzol) 0.9% IV 100 Cefazolin mL FOR IV SET ONLY MEDICATION WASTE Product Size: 1000 mg Product Wasted: _0__ mg ceFAZolin 2016-0 Yes Notes: Memori a (SCIP) + 3-19 (Same As: l Sodium 01:00: Ancef, Daryn Chloride 00 Kefzol) 0.9% IV 100 Cefazolin mL FOR IV SET ONLY MEDICATION WASTE Product Size: 1000 mg Product Wasted: _0__ mg ceFAZolin 2016-0 Yes Notes: Memori a (SCIP) + 3-19 (Same As: l Sodium 01:00: Ancef, Daryn Chloride 00 Kefzol) 0.9% IV 100 Cefazolin mL FOR IV SET ONLY MEDICATION WASTE Product Size: 1000 mg Product Wasted: _0__ mg predniSONE 2016-0 No 20 mg, 4 Mem oria 3-18 tab, l 23:30: Route: PO, Daryn 00 Drug form: TAB, TID, Dosing Weight 104.545, kg, Start date: 05/06/15 18:30:00, 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 day, Stop date: 06/05/15 14:00:00 predniSONE 2016-0 No 20 mg, 4 Mem oria 3-18 tab, l 23:30: Route: PO, Daryn 00 Drug form: TAB, TID, Dosing Weight 104.545, kg, Start date: 05/06/15 18:30:00, 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 day, Stop date: 06/05/15 14:00:00 predniSONE 2016-0 No 20 mg, 4 Mem oria 3-18 tab, l 23:30: Route: PO, Daryn 00 Drug form: TAB, TID, Dosing Weight 104.545, kg, Start date: 05/06/15 18:30:00, 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 day, Stop date: 06/05/15 14:00:00 predniSONE 2016-0 No 20 mg, 4 Mem oria 3-18 tab, l 23:30: Route: PO, Dime Box 00 Drug form: TAB, TID, Dosing Weight 104.545, kg, Start date: 05/06/15 18:30:00, 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 day, Stop date: 06/05/15 14:00:00 predniSONE 2016-0 No 20 mg, 4 Mem oria 3-18 tab, l 23:30: Route: PO, Daryn 00 Drug form: TAB, TID, Dosing Weight 104.545, kg, Start date: 05/06/15 18:30:00, 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 day, Stop date: 06/05/15 14:00:00 predniSONE 2016-0 No 20 mg, 4 Mem oria 3-18 tab, l 23:30: Route: PO, Daryn 00 Drug form: TAB, TID, Dosing Weight 104.545, kg, Start date: 05/06/15 18:30:00, 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 day, Stop date: 06/05/15 14:00:00 predniSONE 2016-0 No 20 mg, 4 Mem oria 3-18 tab, l 23:30: Route: PO, Dime Box 00 Drug form: TAB, TID, Dosing Weight 104.545, kg, Start date: 05/06/15 18:30:00, 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 day, Stop date: 06/05/15 14:00:00 Glucophage 2016-0 No Notes: Memor ia 3-18 (Same as: l 23:00: Glucophage Dime Box 00 ) Take with meal Glucophage 2016-0 No Notes: Memor ia 3-18 (Same as: l 23:00: Glucophage Daryn 00 ) Take with meal Glucophage 2016-0 No Notes: Memor ia 3-18 (Same as: l 23:00: Glucophage Dime Box 00 ) Take with meal Glucophage 2016-0 No Notes: Memor ia 3-18 (Same as: l 23:00: Glucophage Dime Box 00 ) Take with meal Glucophage 2016-0 No Notes: Memor ia 3-18 (Same as: l 23:00: Glucophage Dime Box 00 ) Take with meal Glucophage 2016-0 No Notes: Memor ia 3-18 (Same as: l 23:00: Glucophage Daryn 00 ) Take with meal Glucophage 2016-0 No Notes: Memor ia 3-18 (Same as: l 23:00: Glucophage Daryn 00 ) Take with meal travoprost 2016-0 No Notes: Memor ia 0.04 MG/ML 3-18 Same As: l Ophthalmic 22:00: Travatan Her apple Solution 00 or [Travatan] Travatan Z metoprolol 2016-0 No Notes: Memor ia tartrate 3-18 (Same as: l 22:00: Lopressor) Dime Box 24 HR No Notes: Memoria Metformin 3-18 (Same as: l hydrochlori 22:00: Glucophage Daryn de 1000 MG 00 ) Take Extended with meal Release Tablet travoprost No Notes: Memor ia 0.04 MG/ML 3-18 Same As: l Ophthalmic 22:00: Travatan Her apple Solution 00 or [Travatan] Travatan Z metoprolol No Notes: Memor ia tartrate 3-18 (Same as: l 22:00: Lopressor) Daryn 00 24 HR No Notes: Memoria Metformin 3-18 (Same as: l hydrochlori 22:00: Glucophage Daryn de 1000 MG 00 ) Take Extended with meal Release Tablet travoprost No Notes: Memor ia 0.04 MG/ML 3-18 Same As: l Ophthalmic 22:00: Travatan Her apple Solution 00 or [Travatan] Travatan Z metoprolol No Notes: Memor ia tartrate 3-18 (Same as: l 22:00: Lopressor) Daryn 00 24 HR No Notes: Memoria Metformin 3-18 (Same as: l hydrochlori 22:00: Glucophage Dime Box de 1000 MG 00 ) Take Extended with meal Release Tablet travoprost No Notes: Memor ia 0.04 MG/ML 3-18 Same As: l Ophthalmic 22:00: Travatan Her apple Solution 00 or [Travatan] Travatan Z metoprolol No Notes: Memor ia tartrate 3-18 (Same as: l 22:00: Lopressor) Daryn 24 HR No Notes: Memoria Metformin 3-18 (Same as: l hydrochlori 22:00: Glucophage Daryn de 1000 MG 00 ) Take Extended with meal Release Tablet travoprost No Notes: Memor ia 0.04 MG/ML 3-18 Same As: l Ophthalmic 22:00: Travatan Her apple Solution 00 or [Travatan] Travatan Z metoprolol No Notes: Memor ia tartrate 3-18 (Same as: l 22:00: Lopressor) Dime Box 24 HR No Notes: Memoria Metformin 3-18 (Same as: l hydrochlori 22:00: Glucophage Dime Box de 1000 MG 00 ) Take Extended with meal Release Tablet travoprost No Notes: Memor ia 0.04 MG/ML 3-18 Same As: l Ophthalmic 22:00: Travatan Her apple Solution 00 or [Travatan] Travatan Z metoprolol No Notes: Memor ia tartrate 3-18 (Same as: l 22:00: Lopressor) Dime Box 24 HR No Notes: Memoria Metformin 3-18 (Same as: l hydrochlori 22:00: Glucophage Daryn de 1000 MG 00 ) Take Extended with meal Release Tablet travoprost No Notes: Memor ia 0.04 MG/ML 3-18 Same As: l Ophthalmic 22:00: Travatan Her apple Solution 00 or [Travatan] Travatan Z metoprolol No Notes: Memor ia tartrate 3-18 (Same as: l 22:00: Lopressor) Dime Box 24 HR No Notes: Memoria Metformin 3-18 (Same as: l hydrochlori 22:00: Glucophage Daryn de 1000 MG 00 ) Take Extended with meal Release Tablet Acetaminoph No Notes: Do M emoria en 325 MG / 3-18 not exceed l Hydrocodone 21:00: 4gm/day of Dime Box Bitartrate 00 acetaminop 10 MG Oral hen. (Same Tablet as: [place] 325/10) Acetaminoph No Notes: Do M emoria en 325 MG / 3-18 not exceed l Hydrocodone 21:00: 4gm/day of Daryn Bitartrate 00 acetaminop 10 MG Oral hen. (Same Tablet as: [place] 325/10) Acetaminoph No Notes: Do M emoria en 325 MG / 3-18 not exceed l Hydrocodone 21:00: 4gm/day of Daryn Bitartrate 00 acetaminop 10 MG Oral hen. (Same Tablet as: [place] 325/10) Acetaminoph No Notes: Do M emoria en 325 MG / 3-18 not exceed l Hydrocodone 21:00: 4gm/day of Daryn Bitartrate 00 acetaminop 10 MG Oral hen. (Same Tablet as: [place] 325/10) Acetaminoph No Notes: Do M emoria en 325 MG / 3-18 not exceed l Hydrocodone 21:00: 4gm/day of Dime Box Bitartrate 00 acetaminop 10 MG Oral hen. (Same Tablet as: [place] 325/10) Acetaminoph No Notes: Do M emoria en 325 MG / 3-18 not exceed l Hydrocodone 21:00: 4gm/day of Daryn Bitartrate 00 acetaminop 10 MG Oral hen. (Same Tablet as: [place] 325/10) Acetaminoph No Notes: Do M emoria en 325 MG / 3-18 not exceed l Hydrocodone 21:00: 4gm/day of Dime Box Bitartrate 00 acetaminop 10 MG Oral hen. (Same Tablet as: [place] 325/10) Hydralazine No Notes: Truong martha 3-18 (Same as: l 19:50: Apresoline ) Push over 5 minutes Labetalol No 10 mg, 2 Truong martha 3-18 mL, Route: l 19:50: IVP, Drug form: INJ, Q5Min, Dosing Weight 104.545, kg, PRN Elevated BP, Start date: 05/06/15 14:50:00, Duration: 5 doses or times, Stop date: Limited # of times Hydromorpho No Notes: Truong martha ne 3-18 Same as: l 19:50: Dilaudid Naloxone No Notes: Memoria 3-18 Same as l 19:50: Narcan Flumazenil No Notes: Memor ia 3-18 (Same as: l 19:50: Romazicon) Ondansetron No Notes: Truong martha 3-18 (Same as: l 19:50: Zofran) MEDICATION WASTE Product Size: 4 mg Product Wasted: ___ mg Hydralazine No Notes: Truong martha 3-18 (Same as: l 19:50: Apresoline ) Push over 5 minutes Labetalol No 10 mg, 2 Truong martha 3-18 mL, Route: l 19:50: IVP, Drug Daryn 00 form: INJ, Q5Min, Dosing Weight 104.545, kg, PRN Elevated BP, Start date: 05/06/15 14:50:00, Duration: 5 doses or times, Stop date: Limited # of times Hydromorpho No Notes: Truong martha ne 3-18 Same as: l 19:50: Dilaudid Naloxone No Notes: Memoria 3-18 Same as l 19:50: Narcan Flumazenil No Notes: Memor ia 3-18 (Same as: l 19:50: Romazicon) Ondansetron No Notes: Truong martha 3-18 (Same as: l 19:50: Zofran) MEDICATION WASTE Product Size: 4 mg Product Wasted: ___ mg Hydralazine No Notes: Truong martha 3-18 (Same as: l 19:50: Apresoline ) Push over 5 minutes Labetalol No 10 mg, 2 Truong martha 3-18 mL, Route: l 19:50: IVP, Drug form: INJ, Q5Min, Dosing Weight 104.545, kg, PRN Elevated BP, Start date: 05/06/15 14:50:00, Duration: 5 doses or times, Stop date: Limited # of times Hydromorpho No Notes: Truong martha ne 3-18 Same as: l 19:50: Dilaudid Naloxone No Notes: Memoria 3-18 Same as l 19:50: Narcan Flumazenil No Notes: Memor ia 3-18 (Same as: l 19:50: Romazicon) Ondansetron No Notes: Truong martha 3-18 (Same as: l 19:50: Zofran) MEDICATION WASTE Product Size: 4 mg Product Wasted: ___ mg Hydralazine No Notes: Truong martha 3-18 (Same as: l 19:50: Apresoline Dime Box 00 ) Push over 5 minutes Labetalol No 10 mg, 2 Truong martha 3-18 mL, Route: l 19:50: IVP, Drug Dime Box 00 form: INJ, Q5Min, Dosing Weight 104.545, kg, PRN Elevated BP, Start date: 05/06/15 14:50:00, Duration: 5 doses or times, Stop date: Limited # of times Hydromorpho No Notes: Truong martha ne 3-18 Same as: l 19:50: Dilaudid Dime Box 00 Naloxone No Notes: Memoria 3-18 Same as l 19:50: Narcan Flumazenil No Notes: Memor ia 3-18 (Same as: l 19:50: Romazicon) Ondansetron No Notes: Truong martha 3-18 (Same as: l 19:50: Zofran) Daryn 00 MEDICATION WASTE Product Size: 4 mg Product Wasted: ___ mg Hydralazine No Notes: Truong martha 3-18 (Same as: l 19:50: Apresoline Daryn 00 ) Push over 5 minutes Labetalol No 10 mg, 2 Truong martha 3-18 mL, Route: l 19:50: IVP, Drug Daryn 00 form: INJ, Q5Min, Dosing Weight 104.545, kg, PRN Elevated BP, Start date: 05/06/15 14:50:00, Duration: 5 doses or times, Stop date: Limited # of times Hydromorpho No Notes: Truong martha ne 3-18 Same as: l 19:50: Dilaudid Dime Box 00 Naloxone No Notes: Memoria 3-18 Same as l 19:50: Narcan Daryn 00 Flumazenil No Notes: Memor ia 3-18 (Same as: l 19:50: Romazicon) Ondansetron No Notes: Truong martha 3-18 (Same as: l 19:50: Zofran) Daryn 00 MEDICATION WASTE Product Size: 4 mg Product Wasted: ___ mg Hydralazine No Notes: Truong martha 3-18 (Same as: l 19:50: Apresoline Dime Box 00 ) Push over 5 minutes Labetalol No 10 mg, 2 Truong martha 3-18 mL, Route: l 19:50: IVP, Drug Dime Box 00 form: INJ, Q5Min, Dosing Weight 104.545, kg, PRN Elevated BP, Start date: 05/06/15 14:50:00, Duration: 5 doses or times, Stop date: Limited # of times Hydromorpho No Notes: Truong martha ne 3-18 Same as: l 19:50: Dilaudid Dime Box 00 Naloxone No Notes: Memoria 3-18 Same as l 19:50: Narcan Dime Box 00 Flumazenil No Notes: Memor ia 3-18 (Same as: l 19:50: Romazicon) Ondansetron No Notes: Truong martha 3-18 (Same as: l 19:50: Zofran) Daryn 00 MEDICATION WASTE Product Size: 4 mg Product Wasted: ___ mg Hydralazine No Notes: Truong martha 3-18 (Same as: l 19:50: Apresoline Dime Box 00 ) Push over 5 minutes Labetalol No 10 mg, 2 Truong martha 3-18 mL, Route: l 19:50: IVP, Drug Dime Box 00 form: INJ, Q5Min, Dosing Weight 104.545, kg, PRN Elevated BP, Start date: 05/06/15 14:50:00, Duration: 5 doses or times, Stop date: Limited # of times Hydromorpho No Notes: Truong martha ne 3-18 Same as: l 19:50: Dilaudid Daryn 00 Naloxone No Notes: Memoria 3-18 Same as l 19:50: Narcan Daryn 00 Flumazenil No Notes: Memor ia 3-18 (Same as: l 19:50: Romazicon) Dime Box 00 Ondansetron No Notes: Truong martha 3-18 (Same as: l 19:50: Zofran) Dime Box 00 MEDICATION WASTE Product Size: 4 mg Product Wasted: ___ mg Ancef 2016-0 No 1 gm, Memoria 3-18 Route: l 19:31: IVPB, Drug Daryn 00 form: INJ, ONCE, Dosing Weight 104.545, kg, Start date: 05/06/15 14:31:00, Stop date: 05/06/15 14:31:00 Ancef 2016-0 No 1 gm, Memoria 3-18 Route: l 19:31: IVPB, Drug Daryn 00 form: INJ, ONCE, Dosing Weight 104.545, kg, Start date: 05/06/15 14:31:00, Stop date: 05/06/15 14:31:00 Ancef 2016-0 No 1 gm, Memoria 3-18 Route: l 19:31: IVPB, Drug Dime Box 00 form: INJ, ONCE, Dosing Weight 104.545, kg, Start date: 05/06/15 14:31:00, Stop date: 05/06/15 14:31:00 Ancef 2016-0 No 1 gm, Memoria 3-18 Route: l 19:31: IVPB, Drug Dime Box 00 form: INJ, ONCE, Dosing Weight 104.545, kg, Start date: 05/06/15 14:31:00, Stop date: 05/06/15 14:31:00 Ancef 2016-0 No 1 gm, Memoria 3-18 Route: l 19:31: IVPB, Drug Dime Box 00 form: INJ, ONCE, Dosing Weight 104.545, kg, Start date: 05/06/15 14:31:00, Stop date: 05/06/15 14:31:00 Ancef 2016-0 No 1 gm, Memoria 3-18 Route: l 19:31: IVPB, Drug Daryn 00 form: INJ, ONCE, Dosing Weight 104.545, kg, Start date: 05/06/15 14:31:00, Stop date: 05/06/15 14:31:00 Ancef 2016-0 No 1 gm, Memoria 3-18 Route: l 19:31: IVPB, Drug Dime Box 00 form: INJ, ONCE, Dosing Weight 104.545, kg, Start date: 05/06/15 14:31:00, Stop date: 05/06/15 14:31:00 Regular No 60 units) Truong martha Insulin, 3-18 WASTE: F/P l Human 100 19:00: - Black; E He rmann UNT/ML 00 - Injectable Municipal Solution Trash Bin Stable for 28 days at room temperatur e Expires in days from ____Date Dextrose No 12.5 gm, Memor ia 50% Syringe 3-18 25 mL, l 19:00: Route: Dime Box 00 IVP, Drug Form: INJ, Dosing Weight 104.545, kg, PRN, PRN Abnormal Lab Result, Start date: 05/06/15 14:00:00, 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 day, Stop date: 06/05/15 13:59:00 Saline No Notes: Memoria Flush 0.9% 3-18 (Same as: l 19:00: BD Posiflush) phenol No Notes: Memoria 3-18 Chlorasept l 19:00: ic Castell (Same as: Chlorasept ic, Sore Throat Castell) WASTE: F/P - Black; E - Municipal Trash Bin Hydralazine No Notes: Truong martha 3-18 (Same as: l 19:00: Apresoline ) Push over 5 minutes Ondansetron No Notes: Truong martha 3-18 (Same as: l 19:00: Zofran) MEDICATION WASTE Product Size: 4 mg Product Wasted: _0_ mg Morphine No Notes: Memoria 3-18 (Same l 19:00: as:MORPhin e Sulfate) Acetaminoph No Notes: Do M emoria en 3-18 not exceed l 19:00: 4 gm/day. Dime Box (Same as: Tylenol) Acetaminoph No Notes: Do M emoria en 325 MG / 3-18 not exceed l Hydrocodone 19:00: 4gm/day of Daryn Bitartrate 00 acetaminop 10 MG Oral hen. (Same Tablet as: [place] 325/10) Sodium No 1,000 mL, Memori a Chloride 3-18 Rate: 75 l 0.154 19:00: ml/hr, Dime Box MEQ/ML 00 Infuse Injectable over: 13.3 Solution hr, Route: IV, Dosing Weight 104.545 kg, Total Volume: 1,000, Start date: 05/06/15 14:00:00, 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 day, Stop date: 06/05/15 13:59:00 Regular No 60 units) Truong martha Insulin, 3-18 WASTE: F/P l Human 100 19:00: - Black; E He rmann UNT/ML 00 - Injectable Municipal Solution Trash Bin Stable for 28 days at room temperatur e Expires in days from ____Date Dextrose No 12.5 gm, Memor ia 50% Syringe 3-18 25 mL, l 19:00: Route: Daryn 00 IVP, Drug Form: INJ, Dosing Weight 104.545, kg, PRN, PRN Abnormal Lab Result, Start date: 05/06/15 14:00:00, 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 day, Stop date: 06/05/15 13:59:00 Saline No Notes: Memoria Flush 0.9% 3-18 (Same as: l 19:00: BD Posiflush) phenol No Notes: Memoria 3-18 Chlorasept l 19:00: ic Castell (Same as: Chlorasept ic, Sore Throat Castell) WASTE: F/P - Black; E - Municipal Trash Bin Hydralazine No Notes: Truong martha 3-18 (Same as: l 19:00: Apresoline ) Push over 5 minutes Ondansetron No Notes: Truong martha 3-18 (Same as: l 19:00: Zofran) MEDICATION WASTE Product Size: 4 mg Product Wasted: _0_ mg Morphine No Notes: Memoria 3-18 (Same l 19:00: as:MORPhin e Sulfate) Acetaminoph No Notes: Do M emoria en 3-18 not exceed l 19:00: 4 gm/day. Dime Box 00 (Same as: Tylenol) Acetaminoph No Notes: Do M emoria en 325 MG / 3-18 not exceed l Hydrocodone 19:00: 4gm/day of Daryn Bitartrate 00 acetaminop 10 MG Oral hen. (Same Tablet as: [place] 325/10) Sodium No 1,000 mL, Memori a Chloride 3-18 Rate: 75 l 0.154 19:00: ml/hr, Daryn MEQ/ML 00 Infuse Injectable over: 13.3 Solution hr, Route: IV, Dosing Weight 104.545 kg, Total Volume: 1,000, Start date: 05/06/15 14:00:00, 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 day, Stop date: 06/05/15 13:59:00 Regular No 60 units) Truong martha Insulin, 3-18 WASTE: F/P l Human 100 19:00: - Black; E He rmann UNT/ML 00 - Injectable Municipal Solution Trash Bin Stable for 28 days at room temperatur e Expires in days from ____Date Dextrose No 12.5 gm, Memor ia 50% Syringe 3-18 25 mL, l 19:00: Route: Dime Box 00 IVP, Drug Form: INJ, Dosing Weight 104.545, kg, PRN, PRN Abnormal Lab Result, Start date: 05/06/15 14:00:00, 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 day, Stop date: 06/05/15 13:59:00 Saline No Notes: Memoria Flush 0.9% 3-18 (Same as: l 19:00: BD Posiflush) phenol No Notes: Memoria 3-18 Chlorasept l 19:00: ic Castell (Same as: Chlorasept ic, Sore Throat Castell) WASTE: F/P - Black; E - Municipal Trash Bin Hydralazine No Notes: Truong martha 3-18 (Same as: l 19:00: Apresoline ) Push over 5 minutes Ondansetron No Notes: Truong martha 3-18 (Same as: l 19:00: Zofran) MEDICATION WASTE Product Size: 4 mg Product Wasted: _0_ mg Morphine No Notes: Memoria 3-18 (Same l 19:00: as:MORPhin Daryn e Sulfate) Acetaminoph No Notes: Do M emoria en 3-18 not exceed l 19:00: 4 gm/day. Dime Box 00 (Same as: Tylenol) Acetaminoph No Notes: Do M emoria en 325 MG / 3-18 not exceed l Hydrocodone 19:00: 4gm/day of Daryn Bitartrate 00 acetaminop 10 MG Oral hen. (Same Tablet as: [place] 325/10) Sodium No 1,000 mL, Memori a Chloride 3-18 Rate: 75 l 0.154 19:00: ml/hr, Daryn MEQ/ML 00 Infuse Injectable over: 13.3 Solution hr, Route: IV, Dosing Weight 104.545 kg, Total Volume: 1,000, Start date: 05/06/15 14:00:00, 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 day, Stop date: 06/05/15 13:59:00 Regular No 60 units) Truong martha Insulin, 3-18 WASTE: F/P l Human 100 19:00: - Black; E He rmann UNT/ML 00 - Injectable Municipal Solution Trash Bin Stable for 28 days at room temperatur e Expires in days from ____Date Dextrose No 12.5 gm, Memor ia 50% Syringe 3-18 25 mL, l 19:00: Route: Dime Box 00 IVP, Drug Form: INJ, Dosing Weight 104.545, kg, PRN, PRN Abnormal Lab Result, Start date: 05/06/15 14:00:00, 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 day, Stop date: 06/05/15 13:59:00 Saline No Notes: Memoria Flush 0.9% 3-18 (Same as: l 19:00: BD Daryn 00 Posiflush) phenol No Notes: Memoria 3-18 Chlorasept l 19:00: ic Castell (Same as: Chlorasept ic, Sore Throat Castell) WASTE: F/P - Black; E - Municipal Trash Bin Hydralazine No Notes: Truong martha 3-18 (Same as: l 19:00: Apresoline Daryn ) Push over 5 minutes Ondansetron No Notes: Truong martha 3-18 (Same as: l 19:00: Zofran) Daryn 00 MEDICATION WASTE Product Size: 4 mg Product Wasted: _0_ mg Morphine No Notes: [facility] 3-18 (Same l 19:00: as:MORPhin Daryn 00 e Sulfate) Acetaminoph No Notes: Do M emoria en 3-18 not exceed l 19:00: 4 gm/day. Daryn 00 (Same as: Tylenol) Acetaminoph No Notes: Do M emoria en 325 MG / 3-18 not exceed l Hydrocodone 19:00: 4gm/day of [facility]ime [facility] Bitartrate 00 acetaminop 10 MG Oral hen. (Same Tablet as: [place] 325/10) Sodium No 1,000 mL, Memori a Chloride 3-18 Rate: 75 l 0.154 19:00: ml/hr, [facility] MEQ/ML 00 Infuse Injectable over: 13.3 Solution hr, Route: IV, Dosing Weight 104.545 kg, Total Volume: 1,000, Start date: 05/06/15 14:00:00, 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 day, Stop date: 06/05/15 13:59:00 Regular No 60 units) Truong martha Insulin, 3-18 WASTE: F/P l Human 100 19:00: - Black; E He rmann UNT/ML 00 - Injectable Municipal Solution Trash Bin Stable for 28 days at room temperatur e Expires in days from ____Date Dextrose No 12.5 gm, Memor ia 50% Syringe 3-18 25 mL, l 19:00: Route: [facility] 00 IVP, Drug Form: INJ, Dosing Weight 104.545, kg, PRN, PRN Abnormal Lab Result, Start date: 05/06/15 14:00:00, 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 day, Stop date: 06/05/15 13:59:00 Saline No Notes: [facility] Flush 0.9% 3-18 (Same as: l 19:00: BD Daryn 00 Posiflush) phenol No Notes: [facility] 3-18 Chlorasept l 19:00: ic Castell [facility]ime [facility] 00 (Same as: Chlorasept ic, Sore Throat Castell) WASTE: F/P - Black; E - Municipal Trash Bin Hydralazine No Notes: Truong martha 3-18 (Same as: l 19:00: Apresoline [facility] 00 ) Push over 5 minutes Ondansetron No Notes: Truong martha 3-18 (Same as: l 19:00: Zofran) [facility]ime [facility] 00 MEDICATION WASTE Product Size: 4 mg Product Wasted: _0_ mg Morphine No Notes: [facility] 3-18 (Same l 19:00: as:MORPhin e Sulfate) Acetaminoph No Notes: Do M emoria en 3-18 not exceed l 19:00: 4 gm/day. Daryn 00 (Same as: Tylenol) Acetaminoph No Notes: Do M emoria en 325 MG / 3-18 not exceed l Hydrocodone 19:00: 4gm/day of Daryn Bitartrate 00 acetaminop 10 MG Oral hen. (Same Tablet as: [place] 325/10) Sodium No 1,000 mL, [facility] a Chloride 3-18 Rate: 75 l 0.154 19:00: ml/hr, Daryn MEQ/ML 00 Infuse Injectable over: 13.3 Solution hr, Route: IV, Dosing Weight 104.545 kg, Total Volume: 1,000, Start date: 05/06/15 14:00:00, 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 day, Stop date: 06/05/15 13:59:00 Regular No 60 units) Truong martha Insulin, 3-18 WASTE: F/P l Human 100 19:00: - Black; E He rmann UNT/ML 00 - Injectable Municipal Solution Trash Bin Stable for 28 days at room temperatur e Expires in days from ____Date Dextrose No 12.5 gm, Mem[facility] ia 50% Syringe 3-18 25 mL, l 19:00: Route: Daryn 00 IVP, Drug Form: INJ, Dosing Weight 104.545, kg, PRN, PRN Abnormal Lab Result, Start date: 05/06/15 14:00:00, 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 day, Stop date: 06/05/15 13:59:00 Saline No Notes: [facility] Flush 0.9% 3-18 (Same as: l 19:00: BD Posiflush) phenol No Notes: [facility] 3-18 Chlorasept l 19:00: ic Castell (Same as: Chlorasept ic, Sore Throat Castell) WASTE: F/P - Black; E - Municipal Trash Bin Hydralazine No Notes: Truong martha 3-18 (Same as: l 19:00: Apresoline ) Push over 5 minutes Ondansetron No Notes: Truong martha 3-18 (Same as: l 19:00: Zofran) MEDICATION WASTE Product Size: 4 mg Product Wasted: _0_ mg Morphine No Notes: [facility] 3-18 (Same l 19:00: as:MORPhin e Sulfate) Acetaminoph No Notes: Do M emoria en 3-18 not exceed l 19:00: 4 gm/day. Daryn 00 (Same as: Tylenol) Acetaminoph No Notes: Do M emoria en 325 MG / 3-18 not exceed l Hydrocodone 19:00: 4gm/day of [facility] Bitartrate 00 acetaminop 10 MG Oral hen. (Same Tablet as: [place] 325/10) Sodium No 1,000 mL, [facility] a Chloride 3-18 Rate: 75 l 0.154 19:00: ml/hr, [facility] MEQ/ML 00 Infuse Injectable over: 13.3 Solution hr, Route: IV, Dosing Weight 104.545 kg, Total Volume: 1,000, Start date: 05/06/15 14:00:00, 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 day, Stop date: 06/05/15 13:59:00 Regular No 60 units) Truong martha Insulin, 3-18 WASTE: F/P l Human 100 19:00: - Black; E He rmann UNT/ML 00 - Injectable Municipal Solution Trash Bin Stable for 28 days at room temperatur e Expires in days from ____Date Dextrose No 12.5 gm, [facility] 50% Syringe 3-18 25 mL, l 19:00: Route: Daryn IVP, Drug Form: INJ, Dosing Weight 104.545, kg, PRN, PRN Abnormal Lab Result, Start date: 05/06/15 14:00:00, 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 day, Stop date: 06/05/15 13:59:00 Saline No Notes: [facility] Flush 0.9% 3-18 (Same as: l 19:00: BD Posiflush) phenol No Notes: [facility] 3-18 Chlorasept l 19:00: ic Castell (Same as: Chlorasept ic, Sore Throat Castell) WASTE: F/P - Black; E - Municipal Trash Bin Hydralazine No Notes: Truong martha 3-18 (Same as: l 19:00: Apresoline ) Push over 5 minutes Ondansetron No Notes: Truong martha 3-18 (Same as: l 19:00: Zofran) [facility] 00 MEDICATION WASTE Product Size: 4 mg Product Wasted: _0_ mg Morphine No Notes: [facility] 3-18 (Same l 19:00: as:MORPhin e Sulfate) Acetaminoph No Notes: Do M emoria en 3-18 not exceed l 19:00: 4 gm/day. [facility] 00 (Same as: Tylenol) Acetaminoph No Notes: Do M emoria en 325 MG / 3-18 not exceed l Hydrocodone 19:00: 4gm/day of [facility] Bitartrate 00 acetaminop 10 MG Oral hen. (Same Tablet as: [place] 325/10) Sodium No 1,000 mL, [facility] a Chloride 3-18 Rate: 75 l 0.154 19:00: ml/hr, [facility] MEQ/ML 00 Infuse Injectable over: 13.3 Solution hr, Route: IV, Dosing Weight 104.545 kg, Total Volume: 1,000, Start date: 05/06/15 14:00:00, 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 day, Stop date: 06/05/15 13:59:00 Prednisone 2016-0 No 20 mg, 4 Mem oria 3-18 tab, l 18:00: Route: PO, [facility] 00 Drug form: TAB, TID, Dosing Weight 104.545, kg, Start date: 05/06/15 13:00:00, 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 day, Stop date: 06/05/15 6:00:00 Prednisone 2016-0 No 20 mg, 4 Mem oria 3-18 tab, l 18:00: Route: PO, Daryn 00 Drug form: TAB, TID, Dosing Weight 104.545, kg, Start date: 05/06/15 13:00:00, 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 day, Stop date: 06/05/15 6:00:00 Prednisone 2016-0 No 20 mg, 4 Mem oria 3-18 tab, l 18:00: Route: PO, Daryn 00 Drug form: TAB, TID, Dosing Weight 104.545, kg, Start date: 05/06/15 13:00:00, 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 day, Stop date: 06/05/15 6:00:00 Prednisone 2016-0 No 20 mg, 4 Mem oria 3-18 tab, l 18:00: Route: PO, [facility] 00 Drug form: TAB, TID, Dosing Weight 104.545, kg, Start date: 05/06/15 13:00:00, 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 day, Stop date: 06/05/15 6:00:00 Prednisone 2016-0 No 20 mg, 4 Mem oria 3-18 tab, l 18:00: Route: PO, Daryn 00 Drug form: TAB, TID, Dosing Weight 104.545, kg, Start date: 05/06/15 13:00:00, 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 day, Stop date: 06/05/15 6:00:00 Prednisone 2016-0 No 20 mg, 4 Mem oria 3-18 tab, l 18:00: Route: PO, [facility] 00 Drug form: TAB, TID, Dosing Weight 104.545, kg, Start date: 05/06/15 13:00:00, 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 day, Stop date: 06/05/15 6:00:00 Prednisone 2016-0 No 20 mg, 4 Mem oria 3-18 tab, l 18:00: Route: PO, [facility] 00 Drug form: TAB, TID, Dosing Weight 104.545, kg, Start date: 05/06/15 13:00:00, 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 day, Stop date: 06/05/15 6:00:00 Ancef 2016-0 No 2 gm, [facility] 3-18 Route: l 16:30: IVPB, Drug [place] 00 form: INJ, ONCE, Dosing Weight 104.545, kg, Start date: 05/06/15 11:30:00, Duration: 1 doses or times, Stop date: 05/06/15 11:30:00, Surgical Prophylaxi s Only; For patients < 120 kg Ancef 2016-0 No 2 gm, [facility] 3-18 Route: l 16:30: IVPB, Drug Daryn 00 form: INJ, ONCE, Dosing Weight 104.545, kg, Start date: 05/06/15 11:30:00, Duration: 1 doses or times, Stop date: 05/06/15 11:30:00, Surgical Prophylaxi s Only; For patients < 120 kg Ancef 2016-0 No 2 gm, [facility] 3-18 Route: l 16:30: IVPB, Drug Daryn 00 form: INJ, ONCE, Dosing Weight 104.545, kg, Start date: 05/06/15 11:30:00, Duration: 1 doses or times, Stop date: 05/06/15 11:30:00, Surgical Prophylaxi s Only; For patients < 120 kg Ancef 2016-0 No 2 gm, [facility] 3-18 Route: l 16:30: IVPB, Drug [place] 00 form: INJ, ONCE, Dosing Weight 104.545, kg, Start date: 05/06/15 11:30:00, Duration: 1 doses or times, Stop date: 05/06/15 11:30:00, Surgical Prophylaxi s Only; For patients < 120 kg Ancef 2016-0 No 2 gm, [facility] 3-18 Route: l 16:30: IVPB, Drug [place] [place] 00 form: INJ, ONCE, Dosing Weight 104.545, kg, Start date: 05/06/15 11:30:00, Duration: 1 doses or times, Stop date: 05/06/15 11:30:00, Surgical Prophylaxi s Only; For patients < 120 kg Ancef 2016-0 No 2 gm, [facility] 3-18 Route: l 16:30: IVPB, Drug [place] [place] 00 form: INJ, ONCE, Dosing Weight 104.545, kg, Start date: 05/06/15 11:30:00, Duration: 1 doses or times, Stop date: 05/06/15 11:30:00, Surgical Prophylaxi s Only; For patients < 120 kg Ancef 2016-0 No 2 gm, [facility]oria 3-18 Route: l 16:30: IVPB, Drug [place] 00 form: INJ, ONCE, Dosing Weight 104.545, kg, Start date: 05/06/15 11:30:00, Duration: 1 doses or times, Stop date: 05/06/15 11:30:00, Surgical Prophylaxi s Only; For patients < 120 kg ceFAZolin 2016-0 No Notes: Memori a 3-18 Same as: l 13:30: Ancef [place] [place] 00 ceFAZolin 2015-0 No Notes: Memori a 3-18 Same as: l 13:30: Ancef [place] 00 ceFAZolin 2015-0 No Notes: Memori a 3-18 Same as: l 13:30: Ancef Daryn 00 ceFAZolin 2015-0 No Notes: Memori a 3-18 Same as: l 13:30: Ancef Daryn 00 ceFAZolin 2015-0 No Notes: [facility]ori a 3-18 Same as: l 13:30: Ancef [place] 00 ceFAZolin 2015-0 No Notes: Memori a 3-18 Same as: l 13:30: Ancef Daryn 00 ceFAZolin 2016-0 No Notes: Memori a 3-18 Same as: l 13:30: Ancef [place] 00 omeprazole 2015-0 Yes 40 mg = 1 Me moria 40 mg oral 3-17 cap, PO, l delayed 17:22: Daily, # Luis n release 00 30 cap, 0 capsule Refill(s) omeprazole 2015-0 Yes 40 mg = 1 Me moria 40 mg oral 3-17 cap, PO, l delayed 17:22: Daily, # Luis n release 00 30 cap, 0 capsule Refill(s) simvastatin 2016-0 Yes 40 mg = 1 M emoria 40 mg oral 3-17 tab, PO, l tablet 17:13: Bedtime, # Shea nn 00 90 tab, 1 Refill(s) simvastatin 2016-0 Yes 40 mg = 1 M emoria 40 mg oral 3-17 tab, PO, l tablet 17:13: Bedtime, # Shea nn 00 90 tab, 1 Refill(s) Immunizations Ordered Immunization Filled Immunization Date Status Commen ts Source Name Name [id number] 2020-04-23 Completed Truong rial NA-1273vaxMODERNA<hudson 00:00:00 Herm maggie p>1</sup> [id number]-[id number]-19mR 2020-04-23 Completed Truong rial NA-1273vaxMODERNA<hudson 00:00:00 Herm maggie p>1</sup> PHDO-[id number]-19mR 2020-04-23 Completed Truong rial NA-1273vaxMODERNA<hudson 00:00:00 Herm maggie p>1</sup> DKUK-[id number]-19mR 2020-04-23 Completed Truong rial NA-1273vaxMODERNA<hudson 00:00:00 Herm maggie p>1</sup> [id number]-[id number]-19mR 2020-04-23 Completed Truong rial NA-1273vaxMODERNA<[place]udson 00:00:00 Herm maggie p>1</sup> [id number] 2020-04-23 Completed Truong rial NA-1273vaxMODERNA<[place]udson 00:00:00 Herm maggie p>1</sup> OLWQ-[id number]-19mR 2020-04-23 Completed Truong rial NA-1273vaxMODERNA<[place]udson 00:00:00 Herm maggie p>1</sup> NHHI-[id number]-19mR 2020-03-29 Completed Truong rial NA-1273vaxMODERNA<[place]udson 00:00:00 Herm maggie p>2</sup> MQQW-[id number]-19mR 2020-03-29 Completed Truong rial NA-1273vaxMODERNA<[place]udson 00:00:00 Herm maggie p>2</sup> DXHL-[id number]-19mR 2020-03-29 Completed Truong rial NA-1273vaxMODERNA<[place]udson 00:00:00 Herm maggie p>2</sup> KCIY-HiG-4XICDY-19mR 2020-03-29 Completed Truong rial NA-1273vaxMODERNA<[place]udson 00:00:00 Herm maggie p>2</sup> QAEP-[id number]-19mR 2020-03-29 Completed Truong rial NA-1273vaxMODERNA<[place]udson 00:00:00 Herm maggie p>2</sup> EPTH-[id number]-19mR 2020-03-29 Completed Truong rial NA-1273vaxMODERNA<hudson 00:00:00 Herm maggie p>2</sup> YSJF-[id number]-19mR 2020-03-29 Completed Truong rial NA-1273vaxMODERNA<hudson 00:00:00 Herm maggie p>2</sup> pneumococcal 2015-05-07 Completed [facility] 23-valent vaccine 15:45:00 [facility] influenza virus 2015-05-07 Completed [facility] vaccine, inactivated 15:45:00 Herm maggie pneumococcal 2015-05-07 Completed [facility] 23-valent vaccine 15:45:00 [place] influenza virus 2015-05-07 Completed [facility] vaccine, inactivated 15:45:00 Herm maggie pneumococcal 2015-05-07 Completed [facility] 23-valent vaccine 15:45:00 Daryn influenza virus 2015-05-07 Completed [facility] vaccine, inactivated 15:45:00 Herm maggie pneumococcal 2015-05-07 Completed [facility] 23-valent vaccine 15:45:00 [place] influenza virus 2015-05-07 Completed [facility] vaccine, inactivated 15:45:00 Herm maggie pneumococcal 2015-05-07 Completed [facility] 23-valent vaccine 15:45:00 [place] influenza virus 2015-05-07 Completed [facility] vaccine, inactivated 15:45:00 Herm maggie pneumococcal 2015-05-07 Completed [facility] 23-valent vaccine 15:45:00 [place] influenza virus 2015-05-07 Completed [facility] vaccine, inactivated 15:45:00 Herm maggie pneumococcal 2015-05-07 Completed [facility] 23-valent vaccine 15:45:00 [place] influenza virus 2015-05-07 Completed [facility] vaccine, inactivated 15:45:00 Herm maggie Vital Signs Vital Name Observation Time Observation Value Comments Source Systolic (mm Hg) 2022-03-09 17:45:00 Truong rial [place] Diastolic (mm Hg) 2022-03-09 17:45:00 Mem orial Daryn Heart Rate 2022-03-09 17:45:00 [facility] [place] [place] Height 2022-03-09 17:45:00 5 [ft_i] [facility] Weight 2022-03-09 17:45:00 [facility] BMI Calculated 2022-03-09 17:45:00 [facility] [place] Systolic (mm Hg) 2021-08-14 14:08:00 Truong rial Daryn Diastolic (mm Hg) 2021-08-14 14:08:00 Mem orial [place] Heart Rate 2021-08-14 14:08:00 [facility] Respitory Rate 2021-08-14 14:08:00 [facility] al [place] Height 2021-08-14 14:08:00 172.72 cm [facility] Daryn Weight 2021-08-14 14:08:00 [facility] BMI Calculated 2021-08-14 14:08:00 [facility] Daryn Systolic (mm Hg) 2021-03-09 15:24:00 Truong rial [place] Diastolic (mm Hg) 2021-03-09 15:24:00 Mem orial [place] Heart Rate 2021-03-09 15:24:00 [facility] [place] [place] Respitory Rate 2021-03-09 15:24:00 [facility] [place] Height 2021-03-09 15:24:00 172.72 cm [facility] Weight 2021-03-09 15:24:00 [facility] BMI Calculated 2021-03-09 15:24:00 [facility] Daryn Systolic (mm Hg) 2021-02-09 20:38:00 Truong rial [place] Diastolic (mm Hg) 2021-02-09 20:38:00 Mem orial [place] Heart Rate 2021-02-09 20:38:00 [facility] Daryn Respitory Rate 2021-02-09 20:38:00 [facility] Daryn Height 2021-02-09 20:38:00 172.72 cm [facility] D[facility] Weight 2021-02-09 20:38:00 [facility] Daryn BMI Calculated 2021-02-09 20:38:00 [facility] [place] Systolic (mm Hg) 2021-01-06 15:27:00 Truong rial Daryn Diastolic (mm Hg) 2021-01-06 15:27:00 Mem orial Daryn Heart Rate 2021-01-06 15:27:00 [facility] Daryn Respitory Rate 2021-01-06 15:27:00 [facility] al [place] Height 2021-01-06 15:27:00 172.72 cm [facility] Daryn Weight 2021-01-06 15:27:00 [facility] [place] BMI Calculated 2021-01-06 15:27:00 [facility] al Daryn Systolic (mm Hg) 2020-06-09 15:24:00 Truong rial [place] Diastolic (mm Hg) 2020-06-09 15:24:00 Mem orial Daryn Heart Rate 2020-06-09 15:24:00 [facility] [place] [place] Respitory Rate 2020-06-09 15:24:00 [facility] al Daryn Height 2020-06-09 15:24:00 175.26 cm [facility] Weight 2020-06-09 15:24:00 [facility] [place] [place] BMI Calculated 2020-06-09 15:24:00 [facility] al Daryn Systolic (mm Hg) 2020-04-28 16:13:00 Truong rial Daryn Diastolic (mm Hg) 2020-04-28 16:13:00 Mem orial [place] Heart Rate 2020-04-28 16:13:00 [facility] [place] Respitory Rate 2020-04-28 16:13:00 [facility] [place] Height 2020-04-28 16:13:00 175.26 cm [facility] [place] Weight 2020-04-28 16:13:00 [facility] Daryn BMI Calculated 2020-04-28 16:13:00 [facility] [place] Systolic (mm Hg) 2019-08-18 14:25:00 Truong rial Daryn Diastolic (mm Hg) 2019-08-18 14:25:00 Mem orial [place] Heart Rate 2019-08-18 14:25:00 [facility] Daryn Respitory Rate 2019-08-18 14:25:00 [facility] al Daryn Temperature Oral (F) 2019-08-18 14:25:00 96.8 F [facility] Height 2019-08-18 14:25:00 175.26 cm [facility] Daryn Weight 2019-08-18 14:25:00 [facility] Daryn BMI Calculated 2019-08-18 14:25:00 [facility] al [place] Systolic (mm Hg) 2019-01-23 15:51:00 Troung rial Daryn Diastolic (mm Hg) 2019-01-23 15:51:00 Mem orial Daryn Heart Rate 2019-01-23 15:51:00 [facility] [place] [place] Respitory Rate 2019-01-23 15:51:00 [facility] al [place] Height 2019-01-23 15:51:00 175.26 cm [facility] Daryn Weight 2019-01-23 15:51:00 [facility] Daryn BMI Calculated 2019-01-23 15:51:00 Memori al [place] Systolic (mm Hg) 2018-10-24 14:23:00 Truong rial [place] Diastolic (mm Hg) 2018-10-24 14:23:00 Mem orial [place] Heart Rate 2018-10-24 14:23:00 [facility] Daryn Respitory Rate 2018-10-24 14:23:00 Memori al Daryn Height 2018-10-24 14:23:00 180.34 cm [facility] [place] Weight 2018-10-24 14:23:00 [facility] [place] BMI Calculated 2018-10-24 14:23:00 [facility] al [place] Height 2018-07-11 19:00:00 175.26 cm [facility] Daryn BMI Calculated 2018-07-11 19:00:00 [facility] al [place] Weight 2018-07-11 19:00:00 [facility] Daryn Systolic (mm Hg) 2018-07-11 19:00:00 Truong rial Daryn Diastolic (mm Hg) 2018-07-11 19:00:00 Mem orial [place] Heart Rate 2018-07-11 19:00:00 [facility] [place] [place] Respitory Rate 2018-07-11 19:00:00 Mem[facility] al Daryn BMI Calculated 2018-06-05 15:39:00 [facility] al Daryn Height 2018-06-05 15:39:00 177.8 cm [facility] [place] Weight 2018-06-05 15:39:00 [facility] [place] Heart Rate 2018-06-05 15:39:00 [facility] [place] Respitory Rate 2018-06-05 15:39:00 [facility] al [place] Systolic (mm Hg) 2018-06-05 15:39:00 Truong rial [place] Diastolic (mm Hg) 2018-06-05 15:39:00 Mem orial [place] BMI Calculated 2018-05-20 16:27:00 [facility] al Daryn Weight 2018-05-20 16:27:00 [facility] Height 2018-05-20 16:27:00 180.34 cm [facility] [place] Heart Rate 2018-05-20 16:27:00 [facility] D[facility] Temperature Oral (F) 2018-05-20 16:27:00 98.4 F [facility] [place] Systolic (mm Hg) 2018-05-20 16:27:00 Truong rial Daryn Diastolic (mm Hg) 2018-05-20 16:27:00 Mem orial [place] BMI Calculated 2018-04-04 16:23:00 [facility] al [place] Weight 2018-04-04 16:23:00 [facility] [place] Height 2018-04-04 16:23:00 180.34 cm [facility] Daryn Heart Rate 2018-04-04 16:23:00 [facility] [place] Systolic (mm Hg) 2018-04-04 16:23:00 Truong rial [place] Diastolic (mm Hg) 2018-04-04 16:23:00 Mem orial Daryn Temperature Oral (F) 2018-04-04 16:23:00 97.9 F [facility] [place] [place] Weight 2018-02-21 16:15:00 [facility] D[facility] Height 2018-02-21 16:15:00 177.8 cm [facility] BMI Calculated 2018-02-21 16:15:00 [facility] al [place] Heart Rate 2018-02-21 16:15:00 [facility] [place] Systolic (mm Hg) 2018-02-21 16:15:00 Truong rial [place] Diastolic (mm Hg) 2018-02-21 16:15:00 Mem orial [place] Weight 2018-01-30 15:53:00 [facility] Daryn BMI Calculated 2018-01-30 15:53:00 Mem[facility] al [place] Height 2018-01-30 15:53:00 177.8 cm [facility] [place] Heart Rate 2018-01-30 15:53:00 [facility] [place] Systolic (mm Hg) 2018-01-30 15:53:00 Truong rial Daryn Diastolic (mm Hg) 2018-01-30 15:53:00 Mem orial Daryn Weight 2018-01-17 16:19:00 [facility] Daryn BMI Calculated 2018-01-17 16:19:00 [facility] al Daryn Height 2018-01-17 16:19:00 180.34 cm [facility] [place] [place] Heart Rate 2018-01-17 16:19:00 [facility] [place] Systolic (mm Hg) 2018-01-17 16:19:00 Truong rial Daryn Diastolic (mm Hg) 2018-01-17 16:19:00 Mem orial [place] Systolic (mm Hg) 2018-01-01 14:27:00 Truong rial [place] Diastolic (mm Hg) 2018-01-01 14:27:00 Mem o[facility] [place] Respitory Rate 2018-01-01 14:27:00 [facility]ori al [place] Heart Rate 2018-01-01 14:27:00 [facility] [place] Temperature Oral (F) 2018-01-01 14:27:00 97.8 F [facility] [place] Temperature Oral (F) 2018-01-01 10:00:00 97.6 F [facility] [place] [place] Systolic (mm Hg) 2018-01-01 10:00:00 Truong rial [place] Diastolic (mm Hg) 2018-01-01 10:00:00 Mem orial [place] Respitory Rate 2018-01-01 10:00:00 Memori al Daryn Heart Rate 2018-01-01 01:38:00 [facility] D[facility] Weight 2017-12-27 12:42:00 [facility] D[facility] BMI Calculated 2017-12-27 12:42:00 [facility] Daryn Height 2017-12-27 12:42:00 180.34 cm [facility] Height 2017-12-16 20:14:00 180.34 cm [facility] BMI Calculated 2017-12-16 20:14:00 [facility] [place] Weight 2017-12-16 20:14:00 [facility] Systolic (mm Hg) 2017-11-05 17:07:00 Truong rial Daryn Diastolic (mm Hg) 2017-11-05 17:07:00 Mem o[facility] Daryn Height 2017-11-05 17:07:00 180.34 cm [facility] Daryn BMI Calculated 2017-11-05 17:07:00 [facility] al Daryn Weight 2017-11-05 17:07:00 [facility] D[facility] Weight 2015-05-07 14:08:00 [facility] [place] Temperature Oral (F) 2015-05-07 13:42:00 98.1 F [facility] [place] Heart Rate 2015-05-07 13:42:00 [facility] Systolic (mm Hg) 2015-05-07 13:42:00 Truong rial [place] Diastolic (mm Hg) 2015-05-07 13:42:00 Mem o[facility] Daryn Temperature Oral (F) 2015-05-07 08:05:00 97.6 F [facility] Respitory Rate 2015-05-07 08:05:00 Mem[facility] al Daryn Systolic (mm Hg) 2015-05-07 08:05:00 Truong rial Daryn Diastolic (mm Hg) 2015-05-07 08:05:00 Mem orial Daryn Heart Rate 2015-05-07 08:05:00 [facility] Daryn Systolic (mm Hg) 2015-05-07 04:40:00 Truong rial Daryn Diastolic (mm Hg) 2015-05-07 04:40:00 Mem orial [place] Temperature Oral (F) 2015-05-07 04:40:00 97.8 F [facility] [place] [place] Respitory Rate 2015-05-07 04:40:00 [facility] al [place] Heart Rate 2015-05-07 04:40:00 [facility] Daryn Respitory Rate 2015-05-07 00:29:00 [facility] al [place] Weight 2015-05-06 13:23:00 [facility] Height 2015-05-06 13:23:00 180.34 cm [facility] BMI Calculated 2015-05-06 13:23:00 [facility] [place] Height 2015-05-05 17:57:00 180.34 cm [facility] [place] Weight 2015-05-05 17:57:00 [facility] BMI Calculated 2015-05-05 17:57:00 [facility] al Daryn Procedures Procedure Date / Time Performing Clinician Source Performed [id number] 2022-05-30 00:00:00 MANDOA [facility] [id number] 2020-03-02 00:00:00 STOPRAVIN [facility] tunnel [facility] Daryn decompression<sup>1</[place] p> Laminectomy [facility] 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 [facility] maintenance procedure Operation<sup>3</sup> [facility] pujamaggie Hand repair<sup>2</sup> [facility] Rotator cuff [facility] repair<sup>4</sup> Encounters Start End Encounter Admission Attending Care Care Encounter Source Date/Time Date/Time Type Type Clinicians Facility Department ID 2022-04-20 Outpatient [facility] [id number] [place] 09:53:08 [id number] [facility] 2022-04-13 Out[facility] [id number] [place] 08:43:39 [id number] [facility] 2022-04-11 Outpatient [facility] [id number] [place] 17:03:20 [id number] [facility] 2021-01-18 [id number] [place] 14:44:43 [facility] 2020-12-13 [facility] [id number] [place] 14:33:11 [facility] 2020-10-21 [facility] [id number] [place] 11:31:29 [facility] 2020-03-02 Inpatient MANNY HoyosTO ADMI [id number] [facility] 11:54:00 [facility] 2022-10-05 2022-10-05 Outpatient MHIE MHIE [id number] [facility] 09:00:00 09:00:00 35 [address] [place] 2022-10-05 2022-10-05 Outpatient MHIE MARSHALL [id number] [facility] 09:00:00 09:00:00 35 [facility] [place] 2022-08-28 2022-08-28 Outpatient FOG_Luo_Ran AOSM AOSM [id number] Reba 00:00:00 00:00:00 Sof[facility] [id number] [facility] 2022-08-28 2022-08-28 Outpatient FOG_Luo_Ran AOSM AOSM [id number] Reba 00:00:00 00:00:00 [facility] [id number] [facility] 2022-08-27 2022-08-27 Outpatient FOG_Luo_Ran AOSM AOSM [id number] Reba 00:00:00 00:00:00 Sofia [id number] [facility] 2022-05-30 2022-05-30 Inpatient NARCISA Schroeder [facility] [id number] [facility] 05:46:00 18:04:[address] 2022-05-30 2022-05-30 Inpatient NARCISA Schroeder [facility] CARD [id number] [facility] 05:46:00 18:04:[address] 2022-04-20 2022-04-20 Office Gee, [facility] [id number] [place] 10:00:00 10:15:00 Visit Julissacolby RAMIREZ [id number] H [facility] STATION [id number] BUILDING [id number] 2022-03-09 2022-03-10 Outpatient MHIE MNA [id number] [facility] 17:45:00 05:59:59 Neurology [address] [place] 2022-03-09 2022-03-10 Outpatient MHIE MNA [id number] [facility] 17:45:00 05:59:59 Neurology [address] [place] Daryn 2022-03-09 2022-03-09 Outpatient TORO Mcgovern [facility] [id number] 11:45:00 23:59:59 Steve 35 Jaron 2022-03-09 2022-03-09 Outpatient MHIE MHIE [id number] Memoria 11:45:00 11:45:00 35 l Daryn 2021-10-05 2021-10-05 Ambulatory nullFlavo MNA [id number] Memoria 14:00:00 14:00:00 Pre-Reg r Neurology 30 l [place] Daryn 2021-10-05 2021-10-05 Ambulatory nullFlavo MNA [id number] Memoria 14:00:00 14:00:00 Pre-Reg r Neurology 30 l [place] Daryn 2021-10-05 2021-10-05 Outpatient MHIE MHIE [id number] Memoria 09:00:00 09:00:00 30 l Daryn 2021-10-05 2021-10-[address] [facility] [id number] 09:00:00 09:00:00 Steve 30 Jaron 2021-08-14 2021-08-15 Outpatient nullFlavo MNA [id number] Memoria 14:30:00 04:59:59 r Neurology 34 l Jason Stearns 2021-08-14 2021-08-15 Outpatient nullFlavo MNA [id number] Memoria 14:30:00 04:59:59 r Neurology 34 l Jason Stearns 2021-08-14 2021-08-14 Outpatient DANIEL McgovernFLSCHER MISCHER [id number] 09:30:00 23:59:59 Steve 34 Jaron 2021-08-14 2021-08-14 Outpatient MHIE MHIE [id number] Memoria 09:30:00 09:30:00 34 l Daryn 2021-07-11 2021-07-11 Ambulatory nullFlavo MNA [id number] Memoria 14:00:00 14:00:00 Pre-Reg r Neurology 33 l Jason Stearns 2021-07-11 2021-07-11 Ambulatory nullFlavo MNA [id number] Memoria 14:00:00 14:00:00 Pre-Reg r Neurology 33 l Jason Stearns 2021-07-11 2021-07-11 Outpatient MHIE MHIE [id number] Memoria 09:00:00 09:00:00 33 l Daryn 2021-07-11 2021-07-[address] [facility] [id number] 09:00:00 09:00:00 Steve 33 Jaron 2021-05-09 2021-05-09 [facility] [id number] [id number] [facility] 07:32:00 07:32:00 35 [facility] 2021-04-04 2021-04-04 Office DEBORAH Sarkar 6400 [id number] [place] 10:15:00 10:54:26 Visit Alana CUMMINGS [id number] [facility] [id number] [id number] 2021-03-14 2021-03-14 Outpatient Juan Villavicencio DAYS Y000 [id number] [facility] 08:59:00 08:59:00 61 [facility] 2021-03-09 2021-03-10 Outpatient nullFlavo MNA [id number] Memoria 15:15:00 05:59:59 r Neurology 32 l Jason Stearns 2021-03-09 2021-03-10 Outpatient nullFlavo MNA [id number] Memoria 15:15:00 05:59:59 r Neurology 32 l Jason Stearns 2021-03-09 2021-03-[address] [facility] MHMISCHER [id number] 09:15:00 23:59:59 Steve 32 Jaron 2021-03-09 2021-03-09 Outpatient MHIE MHIE [id number] Memoria 09:15:00 09:15:00 32 jerry Stearns 2021-02-09 2021-02-10 Outpatient nullFlavo MNA [id number] Memoria 20:30:00 05:59:59 r Neurology 31 l Jason Stearns 2021-02-09 2021-02-10 Outpatient nullFlavo MNA [id number] Memoria 20:30:00 05:59:59 r Neurology 31 l Jason Stearns 2021-02-09 2021-02-[address] [facility]ER [id number] 14:30:00 23:59:59 Steve 31 Jaron 2021-02-09 2021-02-09 Outpatient MHIE MHIE [id number] Memoria 14:30:00 14:30:00 31 jerry Stearns 2021-01-09 2021-01-09 [id number] [place] 00:00:00 00:00:[address] 350.1.13.58 [facility] [id number] [id number] 3 2021-01-06 2021-01-07 Outpatient nullFlavo MNA [id number] Memoria 15:00:00 05:59:59 r Neurology 29 l Jason Stearns 2021-01-06 2021-01-07 Outpatient nullFlavo MNA [id number] Memoria 15:00:00 05:59:59 r Neurology 29 l Jason Stearns 2021-01-06 2021-01-[address] [facility] [id number] 09:00:00 23:59:59 Steve 29 Jaron 2021-01-06 2021-01-06 Outpatient MHIE MHIE [id number] Memoria 09:00:00 09:00:00 29 jerry [place] 2020-10-20 2020-10-20 Office DEBORAH Sarkar 6400 [id number] [place] 13:34:37 13:49:37 Visit Alana CUMMINGS [id number] Health [id number] [id number] 3 2020-06-09 2020-06-10 Outpatient nullFlavo MNA [id number] Memoria 15:15:00 04:59:59 r Neurology 28 l Jason Huntann 2020-06-09 2020-06-10 Outpatient nullFlavo MNA [id number] Memoria 15:15:00 04:59:59 r Neurology 28 l Jason Huntann 2020-06-09 2020-06-09 Outpatient TORO Mcgovern MISCHER [id number] 10:15:00 23:59:59 Steve 28 Jaron 2020-06-09 2020-06-09 Outpatient MHIE MHIE [id number] Memoria 10:15:00 10:15:00 28 jerry Daryn 2020-04-28 2020-04-29 Outpatient nullFlavo MNA [id number] Memoria 16:15:00 05:59:59 r Neurology 27 l Jason Huntann 2020-04-28 2020-04-29 Outpatient nullFlavo MNA [id number] Memoria 16:15:00 05:59:59 r Neurology 27 l Jason Huntann 2020-04-28 2020-04-28 Outpatient TORO Mcgovern MHMISCHER [id number] 10:15:00 23:59:59 Steve 27 Jaron 2020-04-28 2020-04-28 Outpatient MHIE MHIE [id number] Memoria 10:15:00 10:15:00 27 jerry Stearns 2020-02-23 2020-02-23 Outpatient Stocks, HCAWU REFE [id number] [facility] 18:15:00 18:15:00 Rose 51 [facility] 2020-02-23 2020-02-23 Outpatient Stocks, HCACL LABO [id number] [facility] 17:54:00 17:54:00 Rose 36 [facility] 2020-02-23 2020-02-23 Outpatient EL Stocks, MANNYTO 3DAY [id number] [facility] 00:00:00 00:00:00 Rose 60 [facility] 2020-01-15 2020-01-15 Laboratory Lab, [facility] Fam Pob I [facility] 1.2. 840.114 [id number] Univers 15:23:31 15:43:31 Only Wilner Keller [facility] [id number] ity of [place] 4.2.7.2.686 Juma as Professio [id number] Dc dical [address] Office [facility] 2020-01-15 2020-01-15 Laboratory Lab, [facility] 1.2.840.114 [id number] 15:23:31 15:43:31 Only Fam Pob I Health 350.1.13.10 [place] 4.2.7.2.686 Professio [id number] [address] 2020-01-15 2020-01-15 Outpatient R PERLA [facility] [id number] Univers 15:20:00 15:20:00 WILNER l[facility] of [facility] 2020-01-15 2020-01-15 Letter Doctor DARBY 1.2.840.114 [id number] Univers 00:00:00 00:00:00 (Out) Unassigned, NILDA 350.1.13.10 ity of [place] [facility] 4.2.7.2.686 Juma as [phone] [address] 2020-01-15 2020-01-15 Letter Doctor DARBY 1.2.840.114 [id number] 00:00:00 00:00:00 (Out) Unassigned, NILDA 350.1.13.10 [place] [facility] [id number] [facility] 2019-08-18 2019-08-19 Outpatient nullFlavo MNA [id number] Memoria 14:00:00 04:59:59 r Neurology 26 l Jason Stearns 2019-08-18 2019-08-19 Outpatient nullFlavo MNA [id number] Memoria 14:00:00 04:59:59 r Neurology 26 l Jason Stearns 2019-08-18 2019-08-[address] [facility]ER [id number] 09:00:00 23:59:59 Steve 26 Jaron 2019-08-18 2019-08-18 Outpatient MHIE MHIE [id number] Memoria 09:00:00 09:00:00 26 jerry HuntDaryn 2019-01-23 2019-01-24 Outpatient nullFlavo MNA [id number] Memoria 15:45:00 05:59:59 r Neurology 25 l Jason Stearns 2019-01-23 2019-01-24 Outpatient nullFlavo MNA [id number] Memoria 15:45:00 05:59:59 r Neurology 25 l Jason [place] 2019-01-23 2019-01-[address] [facility]ER [id number] 09:45:00 23:59:59 Steve 25 Jaron 2019-01-23 2019-01-23 Outpatient MHIE MHIE [id number] Memoria 09:45:00 09:45:00 25 jerry Daryn 2018-10-24 2018-10-25 Outpatient nullFlavo MNA [id number] Memoria 14:30:00 04:59:59 r Neurology 24 l Jason [place] 2018-10-24 2018-10-25 Outpatient nullFlavo MNA [id number] Memoria 14:30:00 04:59:59 r Neurology 24 jerry Gomez Daryn 2018-10-24 2018-10-[address] [facility]ER [id number] 09:30:00 23:59:59 Steve 24 Jaron 2018-10-24 2018-10-24 Outpatient MHIE MHIE [id number] Memoria 09:30:00 09:30:00 24 jerry [place] 2018-10-22 2018-10-22 Ambulatory nullFlavo MNA [id number] Memoria 14:00:00 14:00:00 Pre-Reg r Neurology 23 l Jason Stearns 2018-10-22 2018-10-22 Ambulatory nullFlavo MNA [id number] Memoria 14:00:00 14:00:00 Pre-Reg r Neurology 23 l Jason Stearns 2018-10-22 2018-10-22 Outpatient MHIE MHIE [id number] Memoria 09:00:00 09:00:00 23 jerry [place] 2018-10-22 2018-10-22 [id number] 09:00:00 09:00:00 Steve 23 Jaron 2018-07-11 2018-07-12 Outpatient nullFlavo MNA [id number] Memoria 19:15:00 04:59:59 r Neurology 22 jerry Stearns 2018-07-11 2018-07-12 Outpatient nullFlavo MNA [id number] Memoria 19:15:00 04:59:59 r Neurology 22 jerry Gomez Daryn 2018-07-11 2018-07-[address] [id number] 14:15:00 23:59:59 Steve 22 Jaron 2018-07-11 2018-07-11 Outpatient MHIE MHIE [id number] Memoria 14:15:00 14:15:00 22 jerry HuntDaryn 2018-06-30 2018-07-02 Phone nullFlavo MNA [id number] Memoria 18:56:18 04:59:59 Message r Neurosurger 20 l y [facility] maggie 2018-06-30 2018-07-02 Phone nullFlavo MNA [id number] Memoria 18:56:18 04:59:59 Message r Neurosurger 20 l y [facility] maggie 2018-06-30 2018-07-01 [id number] 13:56:18 23:59:59 2018-07-01 2018-07-01 Ambulatory nullFlavo MNA [id number] Memoria 14:45:00 14:45:00 Pre-Reg r Neurosurger 20 l y [facility] maggie 2018-07-01 2018-07-01 Ambulatory nullFlavo MNA [id number] Memoria 14:45:00 14:45:00 Pre-Reg r Neurosurger 20 l y [facility] 2018-07-01 2018-07-01 Outpatient MHIE MHIE [id number] Memoria 09:45:00 09:45:00 20 jerry [place] 2018-07-01 2018-07-01 Outpatient Breanna [facility] [id number] 09:45:00 09:45:00 Cesar Avila 2018-06-27 2018-06-29 Phone nullFlavo MNA [id number] Memoria 23:05:33 04:59:59 Message r Neurosurger 19 cici Darden [facility] 2018-06-27 2018-06-29 Phone nullFlavo MNA [id number] Memoria 23:05:33 04:59:59 Message r Neurosurger 19 y [facility] 2018-06-27 2018-06-28 Outpatient [facility] [id number] 18:05:33 23:59:59 19 2018-06-05 2018-06-06 Outpatient nullFlavo MNA [id number] Memoria 15:45:00 04:59:59 r Neurology 21 jerry [place] Daryn 2018-06-05 2018-06-06 Outpatient nullFlavo MNA [id number] Memoria 15:45:00 04:59:59 r Neurology 21 jerry Jason Stearns 2018-06-05 2018-06-05 Outpatient TORO Mcgovern [facility] [id number] 10:45:00 23:59:59 Steve Nely Salmeron 2018-06-05 2018-06-05 Ambulatory nullFlavo MNA [id number] Memoria 15:00:00 15:00:00 Pre-Reg r Neurology 17 jerry Jason Stearns 2018-06-05 2018-06-05 Ambulatory nullFlavo MNA [id number] Memoria 15:00:00 15:00:00 Pre-Reg r Neurology 17 l Jason Stearns 2018-06-05 2018-06-05 Outpatient MHIE MHIE [id number] Memoria 10:45:00 10:45:00 21 jerry Stearns 2018-06-05 2018-06-05 Outpatient MHIE MHIE [id number] Memoria 10:00:00 10:00:00 17 jerry Stearns 2018-06-05 2018-06-05 Outpatient [facility] [id number] 10:00:00 10:00:00 Steve Salmeron 2018-05-30 2018-06-01 Phone nullFlavo MNA [id number] Memoria 15:06:00 04:59:59 Message r Neurosurger 18 l y [facility] 2018-05-30 2018-06-01 Phone nullFlavo MNA [id number] Memoria 15:06:00 04:59:59 Message r Neurosurger 18 l y [facility] 2018-05-30 2018-05-31 Outpatient MISCHER MISCHER [id number] 10:06:00 23:59:59 18 2018-05-20 2018-05-21 Outpatient nullFlavo MNA [id number] Memoria 15:15:00 04:59:59 r Neurosurger 19 l y [facility] maggie 2018-05-20 2018-05-21 Outpatient nullFlavo MNA [id number] Memoria 15:15:00 04:59:59 r Neurosurger 19 l y [facility] 2018-05-20 2018-05-[address] [facility] [facility] [id number] 10:15:00 23:59:59 Cesar 19 [place] 2018-05-20 2018-05-20 Outpatient IE [facility] [id number] Memoria 10:15:00 10:15:00 19 [facility] 2018-04-21 2018-04-23 Phone nullFlavo MNA [id number] Memoria 21:06:00 05:59:59 Message r Neurosurger 17 l y [facility] 2018-04-21 2018-04-23 Phone nullFlavo MNA [id number] Memoria 21:06:00 05:59:59 Message r Neurosurger 17 l y [facility] 2018-04-21 2018-04-[address] [facility]ER [id number] 15:06:00 23:59:59 17 2018-04-21 2018-04-22 Outpatient nullFlavo [facility] [id number] Memoria 13:24:00 05:59:00 r [place] 02 [facility] 2018-04-21 2018-04-22 Outpatient nullFlavo [facility] [id number] Memoria 13:24:00 05:59:00 r [place] 02 [facility] 2018-04-21 2018-04-21 Outpatient DANIEL LugoPL MHPL [id number] 07:24:00 23:59:00 Merry Rissa Lawler 2018-04-04 2018-04-05 Outpatient nullFlavo MNA [id number] Memoria 16:00:00 05:59:59 r Neurosurger 18 l y [facility] 2018-04-04 2018-04-05 Outpatient nullFlavo MNA [id number] Memoria 16:00:00 05:59:59 r Neurosurger 18 l y [facility] 2018-04-04 2018-04-04 Outpatient MHMISCHER MHMISCHER [id number] 10:00:00 23:59:59 18 2018-04-04 2018-04-04 Outpatient MHIE MHIE [id number] Memoria 10:00:00 10:00:00 18 [facility] 2018-02-21 2018-02-22 Outpatient nullFlavo MNA [id number] Memoria 16:15:00 05:59:59 r Neurosurger 16 l y [facility] 2018-02-21 2018-02-22 Outpatient nullFlavo MNA [id number] Memoria 16:15:00 05:59:59 r Neurosurger 16 l y [facility] 2018-02-21 2018-02-21 Outpatient DANIEL CarlosMISCHER MHMISCHER [id number] 10:15:00 23:59:59 Cesar Hendricks ChiaWright 2018-02-21 2018-02-21 Outpatient MHIE MHIE [id number] Memoria 10:15:00 10:15:00 16 l [place] 2018-01-30 2018-01-31 Outpatient nullFlavo MNA [id number] Memoria 15:45:00 05:59:59 r Neurology 13 l [place] 2018-01-30 2018-01-31 Outpatient nullFlavo MNA [id number] Memoria 15:45:00 05:59:59 r Neurology 13 l [place] 2018-01-30 2018-01-30 Outpatient DANIEL McgovernMISCHER MHMISCHER [id number] 09:45:00 23:59:59 Steve Tianna Salmeron 2018-01-30 2018-01-30 Outpatient MHIE MHIE [id number] Memoria 09:45:00 09:45:00 13 [facility] 2018-01-17 2018-01-18 Outpatient nullFlavo MNA [id number] Memoria 16:15:00 05:59:59 r Neurosurger 15 y [facility] 2018-01-17 2018-01-18 Outpatient nullFlavo MNA [id number] Memoria 16:15:00 05:59:59 r Neurosurger 15 y [facility] 2018-01-17 2018-01-17 Outpatient Chrissy MHMISCHER MHMISCHER [id number] 10:15:00 23:59:59 Juanita 15 2018-01-17 2018-01-17 Outpatient MHIE IE [id number] Memoria 10:15:00 10:15:00 15 [facility] 2017-12-27 2018-01-01 Inpatient nullFlavo [facility] [id number] Memoria 11:26:00 11:50:[address] 2017-12-27 2018-01-01 Inpatient nullFlavo [facility] [id number] Memoria 11:26:00 11:50:[address] 2017-12-27 2018-01-01 Outpatient Breanna, [facility] [id number] 05:26:00 05:50:00 Cesar Brand [facility] 2017-12-27 2017-12-28 Outpatient nullFlavo MNA [id number] Memoria 13:30:00 05:59:59 r Neurosurger 14 l y [facility] 2017-12-27 2017-12-28 Outpatient nullFlavo MNA [id number] Memoria 13:30:00 05:59:59 r Neurosurger 14 l y [facility] 2017-12-27 2017-12-27 Outpatient Breanna, MHMISCHER MISCHER [id number] 07:30:00 23:59:59 Cesar Jacques [facility] 2017-12-27 2017-12-27 Outpatient MHIE MHIE [id number] Memoria 07:30:00 07:30:00 Jacques [facility] 2017-11-05 2017-11-06 Outpatient nullFlavo MNA [id number] Memoria 17:00:00 04:59:59 r Neurosurger 12 l y [facility] 2017-11-05 2017-11-06 Outpatient nullFlavo MNA [id number] Memoria 17:00:00 04:59:59 r Neurosurger 12 l y [facility] 2017-11-05 2017-11-05 Outpatient [facility], MHMISCHER MHMISCHER [id number] 12:00:00 23:59:59 Cesar 12 [place] 2017-11-05 2017-11-05 Outpatient MHIE MHIE [id number] Memoria 12:00:00 12:00:00 12 jerry [place] 2017-10-31 2017-10-31 Outpatient MHIE MHIE [id number] Memoria 09:15:00 09:15:00 09 jerry [place] 2017-10-31 2017-10-31 Outpatient MHIE MHIE [id number] Memoria 09:15:00 09:15:00 09 [facility] 2017-10-29 2017-10-31 Phone nullFlavo MNA [id number] Memoria 15:20:00 04:59:59 Message r Neurosurger 16 l y [facility] 2017-10-29 2017-10-31 Phone nullFlavo MNA [id number] Memoria 15:20:00 04:59:59 Message r Neurosurger 16 l y [facility] 2017-10-29 2017-10-30 Outpatient MHMISCHER MHMISCHER [id number] 10:20:00 23:59:59 16 2017-10-28 2017-10-30 Phone nullFlavo MNA [id number] Memoria 14:00:00 04:59:59 Message r Neurosurger 15 l y [facility] 2017-10-28 2017-10-30 Phone nullFlavo MNA [id number] Memoria 14:00:00 04:59:59 Message r Neurosurger 15 l y [facility] 2017-10-28 2017-10-29 Outpatient MHMISCHER MHMISCHER [id number] 09:00:00 23:59:59 15 2017-10-28 2017-10-29 Outpatient MHMISCHER MHMISCHER [id number] 09:00:00 23:59:59 15 2017-10-24 2017-10-26 Phone nullFlavo MNA [id number] Memoria 15:21:00 04:59:59 Message r Neurosurger 14 l y [facility] 2017-10-24 2017-10-26 Phone nullFlavo MNA [id number] Memoria 15:21:00 04:59:59 Message r Neurosurger 14 l y [facility] 2017-10-25 2017-10-26 Outpt Diag nullFlavo [facility] [id number] Memoria 18:20:00 04:59:00 Services r Outpatient 09 l Imaging [facility] 2017-10-25 2017-10-26 Outpt Diag nullFlavo [facility] [id number] Memoria 18:20:00 04:59:00 Services r Outpatient 09 [facility] 2017-10-24 2017-10-25 Outpatient MISCHER MISCHER [id number] 10:21:00 23:59:59 14 2017-10-25 2017-10-25 Outpatient JOHN PAUL Lugo [facility] [id number] 13:20:00 23:59:00 Merry Mary Alice Lawler 2017-09-20 2017-10-20 OP Therapy nullFlavo [facility] [id number] Memoria 21:00:00 04:59:00 Patients r [facility] 00 [facility] 2017-09-20 2017-10-20 OP Therapy nullFlavo [facility] [id number] Memoria 21:00:00 04:59:00 Patients r [facility] 00 [facility] 2017-09-20 2017-10-19 Outpatient [facility], [id number]. [id number] 16:00:00 23:59:00 Cesar [id number] 00 ChristianJune [id number] 5.38 2017-10-15 2017-10-17 Phone nullFlavo MNA [id number] Memoria 14:38:00 04:59:59 Message r Neurosurger 13 l y [facility] 2017-10-15 2017-10-17 Phone nullFlavo MNA [id number] Memoria 14:38:00 04:59:59 Message r Neurosurger 13 l y [facility] 2017-10-15 2017-10-16 Outpatient MHMISCHER MHMISCHER [id number] 09:38:00 23:59:59 13 2017-10-15 2017-10-16 Outpt Diag nullFlavo [facility] [id number] Memoria 13:55:00 04:59:00 Services r Outpatient 08 l Imaging [facility] 2017-10-15 2017-10-16 Outpt Diag nullFlavo [facility] [id number] Memoria 13:55:00 04:59:00 Services r Outpatient 08 l Imaging [facility] 2017-10-15 2017-10-15 Outpatient Breanna, MHOIP MHOIP [id number] 08:55:00 23:59:00 Cesar GonzalesAdriana 2017-10-08 2017-10-09 Outpatient nullFlavo MNA [id number] Memoria 19:15:00 04:59:59 r Neurosurger 11 l y [facility] 2017-10-08 2017-10-09 Outpatient nullFlavo MEA [id number] Memoria 19:15:00 04:59:59 r Neurosurger 11 l y [facility] 2017-10-07 2017-10-09 Phone nullFlavo MNA [id number] Memoria 15:42:00 04:59:59 Message r Neurosurger 12 l y [facility] 2017-10-07 2017-10-09 Phone nullFlavo MNA [id number] Memoria 15:42:00 04:59:59 Message r Neurosurger 12 l y [facility] 2017-10-08 2017-10-08 Outpatient Breanna, MHMISCHER MHMISCHER [id number] 14:15:00 23:59:59 Cesar Avila 2017-10-07 2017-10-08 Outpatient MHMISCHER MHMISCHER [id number] 10:42:00 23:59:59 12 2017-10-08 2017-10-08 Outpatient MHIE MHIE [id number] Memoria 14:15:00 14:15:00 11 [facility] 2017-10-03 2017-10-05 Phone nullFlavo MNA [id number] Memoria 13:46:00 04:59:59 Message r Neurosurger 11 l y [facility] maggie 2017-10-03 2017-10-05 Phone nullFlavo MNA [id number] Memoria 13:46:00 04:59:59 Message r Neurosurger 11 l y [facility] maggie 2017-10-03 2017-10-04 Outpatient MHMISCHER MHMISCHER [id number] 08:46:00 23:59:59 11 2017-09-24 2017-09-26 Phone nullFlavo MNA [id number] Memoria 21:00:00 04:59:59 Message r Neurosurger 10 l y [facility] maggie 2017-09-24 2017-09-26 Phone nullFlavo MNA [id number] Memoria 21:00:00 04:59:59 Message r Neurosurger 10 l y [facility] 2017-09-24 2017-09-25 Outpatient MHMISCHER MHMISCHER [id number] 16:00:00 23:59:59 2017-09-20 2017-09-21 Outpt Diag nullFlavo [facility] [id number] Memoria 11:30:00 04:59:00 Services r Outpatient 07 l Imaging [facility] 2017-09-20 2017-09-21 Outpt Diag nullFlavo [facility] [id number] Memoria 11:30:00 04:59:00 Services r Outpatient 07 l [facility] 2017-09-20 2017-09-20 Outpatient Breanna, MHOIP MHOIP [id number] 06:30:00 23:59:00 [facility] 2017-09-11 2017-09-12 Outpatient nullFlavo MNA [id number] Memoria 18:30:00 04:59:59 r Neurosurger 10 l y [facility] 2017-09-11 2017-09-12 Outpatient nullFlavo MNA [id number] Memoria 18:30:00 04:59:59 r Neurosurger 10 l y [facility] 2017-09-11 2017-09-11 Outpatient Breanna, MHMISCHER MHMISCHER [id number] 13:30:00 23:59:59 Cesar Layton [facility] 2017-09-11 2017-09-11 Outpatient MHIE MHIE [id number] Memoria 13:30:00 13:30:00 10 jerry Stearns 2017-08-09 2017-08-09 Outpatient MHIE MHIE [id number] Memoria 09:30:00 09:30:00 08 jerry Stearns 2017-08-09 2017-08-09 Outpatient MHIE MHIE [id number] Memoria 09:30:00 09:30:00 08 jerry Stearns 2017-06-28 2017-06-28 Outpatient MHIE MHIE [id number] Memoria 11:15:00 11:15:00 07 jerry Stearns 2017-06-28 2017-06-28 Outpatient MHIE MHIE [id number] Memoria 11:15:00 11:15:00 07 jerry Stearns 2017-05-30 2017-05-30 Outpatient MHIE MHIE [id number] Memoria 10:30:00 10:30:00 06 jerry Stearns 2017-05-30 2017-05-30 Outpatient MHIE MHIE [id number] Memoria 10:30:00 10:30:00 06 jerry Stearns 2016-02-01 2016-02-02 Outpt Diag nullFlavo [facility] [id number] Memoria 17:22:00 05:59:00 Services r Outpatient 06 jerry Stearns [place] 2016-02-01 2016-02-02 Outpt Diag nullFlavo [facility] [id number] Memoria 17:22:00 05:59:00 Services r Outpatient 06 jerry Stearns [place] 2016-02-01 2016-02-01 Outpatient Catherine, OIP MHOIP [id number] 11:22:00 23:59:00 Shekhar Sands 2016-01-19 2016-01-19 Outpatient MHIE IE [id number] Memoria 10:15:00 10:15:00 05 jerry Daryn 2016-01-19 2016-01-19 Outpatient MHIE MHIE [id number] Memoria 10:15:00 10:15:00 05 jerry Daryn 2015-12-30 2015-12-30 Outpt Diag nullFlavo [facility] [id number] Memoria 00:21:00 05:59:00 Services r Outpatient 05 l Cara Stearns [place] 2015-12-30 2015-12-30 Outpt Diag nullFlavo [facility] [id number] Memoria 00:21:00 05:59:00 Services r Outpatient 05 jerry Salazar 2015-12-29 2015-12-29 Outpatient Florin MH29 [facility] [id number] 18:21:00 23:59:00 Shekhar Molly Sands 2015-12-22 2015-12-23 Outpt Diag nullFlavo [facility] [id number] Memoria 14:35:00 04:59:00 Services r Outpatient 04 jerry Stearns 2015-12-22 2015-12-23 Outpt Diag nullFlavo [facility] [id number] Memoria 14:35:00 04:59:00 Services r Outpatient 04 jerry Stearns 2015-12-22 2015-12-22 Outpatient Catherine [facility] [id number] 09:35:00 23:59:00 Shekhar Ramona Sands 2015-12-22 2015-12-22 Outpatient MHIE MHIE [id number] Memoria 09:45:00 09:45:00 04 jerry Stearns 2015-12-22 2015-12-22 Outpatient MHIE MHIE [id number] Memoria 09:45:00 09:45:00 04 jerry Stearns 2015-08-03 2015-08-04 Outpt Diag nullFlavo [facility] [id number] Memoria 17:42:00 04:59:00 Services r Outpatient 02 ejrry Stearns 2015-08-03 2015-08-04 Outpt Diag nullFlavo [facility] [id number] Memoria 17:42:00 04:59:00 Services r Outpatient 02 jerry Stearns 2015-08-03 2015-08-03 Outpatient Catherine, [facility] [id number] 12:42:00 23:59:00 Shekhar M Rissa 2015-08-03 2015-08-03 Outpatient MHIE MHIE [id number] Memoria 13:45:00 13:45:00 03 jerry Stearns 2015-08-03 2015-08-03 Outpatient MHIE MHIE [id number] Memoria 13:45:00 13:45:00 03 jerry Stearns 2015-06-22 2015-06-23 Outpt Diag nullFlavo [facility] [id number] Memoria 18:20:00 04:59:00 Services r Outpatient 01 l Imaging [facility] 2015-06-22 2015-06-23 Outpt Diag nullFlavo [facility] [id number] Memoria 18:20:00 04:59:00 Services r Outpatient 01 l Imaging [facility] 2015-06-22 2015-06-22 Outpatient Catherine, [facility] [id number] 13:20:00 23:59:00 Shekhar M 2015-06-22 2015-06-22 Outpatient MHIE MHIE [id number] Memoria 13:45:00 13:45:00 02 l Daryn 2015-06-22 2015-06-22 Outpatient MHIE MHIE [id number] Memoria 13:45:00 13:45:00 02 l [place] [place] 2015-05-18 2015-05-18 Outpatient MHIE MHIE [id number] Memoria 13:00:00 13:00:00 01 [facility] 2015-05-18 2015-05-18 Outpatient MHIE IE [id number] Memoria 13:00:00 13:00:00 01 [facility] 2015-05-06 2015-05-07 Inpatient [facility]Flavo [facility] [id number] Memoria 12:11:00 16:47:00 r [place] 00 l [facility] 2015-05-06 2015-05-07 Inpatient nullFlavo [facility] [id number] Memoria 12:11:00 16:47:00 r Daryn 00 l [facility] 2015-05-06 2015-05-07 Outpatient Catherine [facility] [id number] 07:11:00 11:47:00 Shekhar M 00 2015-04-06 2015-04-07 Outpt Diag nullFlavo [facility] [id number] Memoria 22:35:00 05:59:00 Services r Outpatient 00 l Imaging [facility] 2015-04-06 2015-04-07 Outpt Diag nullFlavo [facility] [id number] Memoria 22:35:00 05:59:00 Services r Outpatient 00 l Imaging [facility] 2015-04-06 2015-04-06 Outpatient Florin [facility] [id number] 16:35:00 23:59:00 Shekhar M 00 Results Test Description Test Time Test Comments Results Result Comments Source GLUCOSE BEDSIDE 2022-05-30 12:13:00 Test Item Value Reference Range Interpretation Comme nts GLUCOSE BEDSIDE (test code = 132 MG/DL 70-110 H Performed by certified heavy equipment operator/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 at [facility]) [facility] [id number] 11:40:00 Test Item Value Reference Range Interpretation Comments ACT-ISTAT (test code 281 SEC 74-137 H Perform ed by certified = ACTI) heavy equipment operator/paver at [facility] GLUCOSE [id number] 09:45:00 Test Item Value Reference Range Interpretation Comments GLUCOSE BEDSIDE (test 154 MG/DL 70-110 H Perfor med by certified code = GLUBED) heavy equipment operator/paver at [facility] - XR CHEST 1 [id number] 00:00:00 [facility] 1945 Sex: M FAX: Alverto Navarro MD [phone] [place]: St: DIS FAX: Kota Murillo [phone] Name: CRYSTAL DICKEY [facility] : 1945 Age/S: 76/M [address] [place] [address] Unit #: [id number] Loc: [place] [address] Phys: Kota Murillo [facility] Acct: [id number] Dis Date: [id number] Status: DIS IN PHONE #: [phone] Exam Date: 05/30/2022 1319 FAX #: [phone] Reason: S/P WATCHMAN EXAMS: CPT CODE: [id number] XR CHEST 1 V 26661 PROCEDURE INFORMATION: Exam: XR Chest Exam date and time: 05/30/2022 12:27 PM Age: 76 years old Clinical indication: Other: S/P watchman TECHNIQUE: Imaging protocol: Radiologic exam ofthe chest. Views: 1 view. COMPARISON: DX XR CHEST 2 V 05/28/2022 2:20 PM FINDINGS: Lungs: Normal lung volumes. No consolidation. Pleural spaces: Unremarkable. No pleural effusion. No pneumothorax. Heart/Mediastinum: The cardiac silhouette is slightly enlarged. Bones/joints: Previous cervical spinal fusion. IMPRESSION: No acute cardiopulmonary findings. at 4704 Reported and signed by: Wale Guillen M.D. CC: Alverto Benavides MD; Kota Murillo Technologist: KERWIN Fajardo) Trnscrd Date/Time/By: 05/30/2022 (1305) : By: HemalTDO Orig Print D/T: S: 05/30/2022 (3349) PAGE 1 Signed Report- XR CHEST 1 [id number] 00:00:00 [facility] : 1945 Sex: M FAX: Alverto Navarro MD [phone] [place]: St: ADM FAX: Kota Murillo [phone] Name: CRYSTAL DICKEY [facility] : 1945 Age/S: 76/M [address] [place] [address] Blvd Unit #: [id number] Loc: [place] [address] Phys: Kota Murillo Acct: [id number] Dis Date: Status: ADM IN PHONE #: [phone] Exam Date: 05/30/20221318 FAX #: [phone] Reason: S/P WATCHMAN EXAMS: CPT CODE: [id number] XR CHEST1 V 09242 PROCEDURE INFORMATION: Exam: XR Chest Exam date and time: 05/30/2022 12:27 PM Age: 76 yearsold Clinical indication: Other: S/P watchman TECHNIQUE: Imaging protocol: Radiologic exam of the chest. Views: 1 view. COMPARISON: DX XR CHEST 2 V 05/28/2022 2:20 PM FINDINGS: Lungs: Normal lung volumes. No consolidation. Pleural spaces: Unremarkable. No pleural effusion. No pneumothorax. Heart/Mediastinum: The cardiac silhouette is slightly enlarged. Bones/joints: Previous cervical spinal fusion. IMPRESSION: No acute cardiopulmonary findings. at 1344 Reported and signed by: Wale Guillen M.D. CC: Alverto Benavides MD; Kota Murillo Technologist: RT Tana(Linh) Trnradha Date/Time/By: 05/30/2022 (2076) : By: Agnes Orig Print D/T: S: 05/30/2022 (1712) PAGE 1 Signed [id number] 15:45:00 Test Item Value Reference Range Interpretation Comments PREALBUMIN (test code = PREALB) 25.3 mg/dL 16.0-40.0 N BASIC METABOLIC [id number] 15:45:00 Test Item Value Reference Range Interpretation Comments SODIUM (test code = 139 mEq/L 134-147 N NA) POTASSIUM (test code 4.2 mEq/L 3.4-5.0 N = K) CHLORIDE (test code 109 mEq/L 100-108 H = CL) CARBON DIOXIDE (test 26 mEq/l 21-33 N code = CO2) ANION GAP (test code 8 0-20 N = GAP) GLUCOSE (test code = 159 mg/dL 70-110 H GLU) BLOOD UREA NITROGEN 21 mg/dL 7-18 H (test code = BUN) GLOMERULAR 47.7 70-80 L The Glomerular FILTRATION RATE Filtration R ate is a (test code = GFR) calculated parameterbased on serum Creatinine, pat ient age and sex. GFR va luesless than 60 mL/min/ 1.73 square meters a re indicative ofCh ronic Kidney Disease. Values less than 15 mL/min/1.73squa re meters indicate Kidney failure. The calculation forGFR is based on the CKD-EPI (2020) calculat ion. This formulais race indifferent and is the recommended for saranya for GFRby the Natio nal Kidney Foundati on for Adults.The GFR will not calculate if th e sex is unknown or if thepatient's ag e is <18 years. CREATININE (test 1.5 mg/dL 0.6-1.3 H code = CREAT) CALCIUM (test code = 9.2 mg/dL 8.0-10.5 N CA) PROTHROMBIN [id number] 15:36:00 Test Item Value Reference Range Interpretation Comments PROTHROMBIN TIME 13.5 SECONDS 9.3-12.9 H PATIENT (test code = PTP) INTERNATIONAL NORMAL 1.2 0.8-1.2 N TARGET INR BY RATIO (test code = INDICATIO N Indication INR) INR1. Prophylax is of venous thrombos is 2.0 - 3.0 (orthoped ic surgery), Proph ylaxis of venous throm bosis (other than hig h-risk surgery), Treat ment of Deep Vein Thrombosis/Pulm onary Embolism, Preve ntion of systemic emb olism - Tissue heart va lves, Acute Myocardia l Infarction (to prevent systemic emboli sm), Valvular heart disease, Atrial Fibrillation, Bileaflet mecha nical valve in aortic position.2. Mec hanical prosthetic valv es (high risk), 2. 5 - 3.5 Presence of Lup us Anticoagulant o r Antiphospholipi d Antibodies, Pre vention of systemic emb olism - Acute Myocardia l Infarction (to prevent recurrent infar ct). CBC W/AUTO [id number] 15:26:00 Test Item Value Reference Range Interpretation Comments WHITE BLOOD CELL (test code = 7.3 x10 3/uL 4.5-11.0 N WBC) RED BLOOD CELL (test code = 3.55 x10 6/uL 4.00-5.60 L RBC) HEMOGLOBIN (test code = HGB) 11.8 g/dL 12.5-16.9 L HEMATOCRIT (test code = HCT) 34.6 % 37.5-50.7 L MEAN CELL VOLUME (test code = 97.5 fL 81.0-99.0 N MCV) MEAN CELL HGB (test code = MCH) 33.2 pg 27.0-33.0 H MEAN CELL HGB CONCETRATION 34.1 g/dL 33.0-37.0 N (test code = MCHC) RED CELL DISTRIBUTION WIDTH CV 12.6 % 11.5-14.5 N (test code = RDW) RED CELL DISTRIBUTION WIDTH SD 45.3 fL 37.0-54.0 N (test code = RDW-SD) PLATELET COUNT (test code = 103 x10 3/uL 150-400 L PLT) MEAN PLATELET VOLUME (test code 10.5 fL 7.0-9.0 H = MPV) NEUTROPHIL % (test code = NT%) 69.3 % 56.0-77.0 N IMMATURE GRANULOCYTE % (test 0.5 % 0.0-2.0 N code = IG%) LYMPHOCYTE % (test code = LY%) 22.0 % 14.0-32.0 N MONOCYTE % (test code = MO%) 5.2 % 4.8-9.0 N EOSINOPHIL % (test code = EO%) 2.3 % 0.3-3.7 N BASOPHIL % (test code = BA%) 0.7 % 0.0-2.0 N NUCLEATED RBC % (test code = 0.0 % 0-0 N NRBC%) NEUTROPHIL # (test code = NT#) 5.08 x10 3/uL 2.0-7.6 N IMMATURE GRANULOCYTE # (test 0.04 x10 3/uL 0.00-0.03 H code = IG#) LYMPHOCYTE # (test code = LY#) 1.61 x10 3/uL 1.0-3.8 N MONOCYTE # (test code = MO#) 0.38 x10 3/uL 0.1-0.8 N EOSINOPHIL # (test code = EO#) 0.17 x10 3/uL 0.0-0.2 N BASOPHIL # (test code = BA#) 0.05 x10 3/uL 0.0-0.2 N NUCLEATED RBC # (test code = 0.00 x10 3/uL 0.0-0.1 N NRBC#) MANUAL DIFF REQUIRED (test code NO = MDIFF) - XR CHEST 2 [id number] 00:00:00 [facility] : 1945 Sex: M FAX: Alverto Navarro MD [phone] [place]: SAMANTHA St: DIS Name: CRYSTAL DICKEY [facility] : 1945 Age/S: 76/M [address] [place] [address] Unit #: [id number] Loc: [place] [address] Phys: Alverto Benavides MD Acct: [id number] Dis Date: [id number] Status: DIS IN PHONE #: [phone] Exam Date: 05/28/2022 1451 FAX #: [phone] Reason: PREOP EXAMS: CPT CODE: [id number] XR CHEST 2 V 28659 PROCEDURE INFORMATION: Exam: XR Chest Exam date and time: 05/28/2022 2:20 PM Age: 76 years old Clinical indication: Other: Preop TECHNIQUE: Imaging protocol: Radiologic exam of the chest. Views: 2 views. PA and Lateral COMPARISON: No relevant prior studies available. FINDINGS: Lungs: No consolidation. Pleural spaces: No pleural effusion. Heart/Mediastinum: The heart and vascular markings are within limits of normal. Bones/joints: Nogross acute findings. Cervical hardware is seen. IMPRESSION: No acute cardiopulmonary findings at 1505 Reported and signed by: Alesha Ackerman D.O. CC: Alverto Benavides MD Technologist: RT Kaylene(R) Trnscrd Date/Time/By: 05/28/2022 (4943) : By: [email or web address] Orig Print D/T: S: 05/28/2022 (9812) PAGE 1 Signed Report- XR CHEST 2 [id number] 00:00:00 [facility] : 1945 Sex: M FAX: Alverto Navarro MD [phone] [place]: St: PRE Name: CRYSTAL DICKEY [facility] Kassidy Pretty : 1945 Age/S: 76/M [address] [place] [address] Unit #: [id number] Loc: [place] [address] Phys: Alverto Benavides MD Acct: [id number] Dis Date: Status: PRE IN PHONE #: [phone] Exam Date: 05/28/20221450 FAX #: [phone]: PREOP EXAMS: CPT CODE: [id number] XR CHEST 2 V 97609 PROCEDURE INFORMATION: Exam: XR Chest Exam date and time: 05/28/2022 2:20 PM Age: 76 years old Clinical indication: Other: Preop TECHNIQUE: Imaging protocol: Radiologic exam of the chest. Views: 2 views. PA and Lateral COMPARISON: No relevantprior studies available. FINDINGS: Lungs: No consolidation. Pleural spaces: No pleural effusion. Heart/Mediastinum: The heart and vascular markings are within limits of normal. Bones/joints: No gross acute findings. Cervical hardware is seen. IMPRESSION: No acute cardiopulmonary findings at 1505 Reported and signed by: Alesha Ackerman D.O. CC: Alverto Benavides MD Technologist: RT Kaylene(R) Trnscrd Date/Time/By: 05/28/2022 (6578) : By: [email or web address] Orig Print D/T: S: 05/28/2022 (9740) PAGE 1 Signed [id number] 09:25:00 Test Item Value Reference Range Interpretation Comments GLUBED (test code = GLUBED) 146 mg/dL 60-125 H [id number] 10:51:00 Test Item Value Reference Range Interpretation Comments GLUBED (test code = GLUBED) 150 mg/dL 60-125 H COVID 19 Asymptomatic IH [id number] 18:38:00 Test Item Value Reference Range Interpretation Comments COVID 19 Asymptomatic IH AG (test NEGATIVE NEGATIVE code = COVNONPUIAG) [id number] 08:46:00 Test Item Value Reference Range Interpretation Comments GLUBED (test code = GLUBED) 171 mg/dL 60-125 H [id number] 08:46:00 Test Item Value Reference Range Interpretation Comments GLUBED (test code = GLUBED) 161 mg/dL 60-125 H [id number] 11:31:00 Test Item Value Reference Range Interpretation Comments GLUBED (test code = GLUBED) 167 mg/dL 60-125 H BASIC METABOLIC [id number] 06:44:00 Test Item Value Reference Range Interpretation [...] RATE (test code = GFR) mL/mi n/1.73 f2Uzkvzqcrb Range:Healthy Adults >90 mL/min/1.73 m2 For Chronic Kidney Disease: Stage II Mild Decrease i n GFR 60-90 Stage III Moderate Decrea se in GFR 30-59 St age IV Severe Decre ase in GFR 15-29 St age V Kidney Failur e <15 CREATININE (test code 1.09 mg/dL 0.55-1.30 N = CREAT) CALCIUM (test code = 8.5 mg/dL 8.2-10.1 N CA) SPECIMEN COMMENT: POD #1HGB [id number] 06:08:00 Test Item Value Reference Range Interpretation Comments HEMOGLOBIN (test code = HGB) 10.6 g/dL 12-16 L HEMATOCRIT (test code = HCT) 30.9 % 37-47 L SPECIMEN COMMENT: POD #[id number] 21:07:00 Test Item Value Reference Range Interpretation Comments GLUBED (test code = GLUBED) 224 mg/dL 60-125 H VITAMIN D 25-HYDROXY (TOTAL)2020-02-25 06:32:00 Test Item Value Reference Range Interpretation Comments VITAMIN D 27.4 ng/mL 30.0-100.0 L Vitamin D defic iency has 25-HYDROXY (TOTAL) been defi valerio by the (test code = [facility] and VITD25) an Endocrine So replaced by [facility] practice guidel ine as alevel of serum 25-OH vitamin D less than 20 ng/mL (1,2).The Endocrine Society went on to further define vitamin Dinsufficiency as a level between 21 and 29 ng/mL (2).1. IOM (Ins titute of Medicine). 2010 . Dietary reference intak es for calcium and D. [place]: [employer] .2. Sinan HARMAN, Mary MCCONNELL, Monisha no TODD, et al. Evaluation, treatment, and prevention of vitamin D de ficiency: an Endocrine So replaced by [facility] clinical practi ce guideline. JCEM . 2010; 96(7):1911-30.P erformed At: [facility] [address] [place], [place] [id number] Gen Cummings MD Ph:[phone] Novel Coronavirus 2018 [id number] 04:41:00 Test Item Value Reference Range Interpretation [...] in vitro. SPECIMEN COMMENT: NNovel Coronavirus 2019 [id number] 04:41:00 Test Item Value Reference Range Interpretation [...] the method used . HGBA1c results from pa rubina HbSS, HbCC, and HbSc must be interpreted [...] GBA1c resultsregardle ss of the method used. HG BA1c results from patientswi th HbSS, HbCC, and HbSc must be interpreted wit h cautiongiven th e pathological pr ocesses, including anemi a,increased red cell turnov er, transfusion req uirements, thatadversely i mpact HGBA1c as a marker of long-term glycemiccontrol . Alternative for ms of testing such as fructosaminesho uld be considered for these patients.DONE A T: [facility] [address] [facility], [place], [place] [address] COMPREHENSIVE METABOLIC [id number] 18:43:00 Test Item Value Reference Range Interpretation [...] RATE (test code = GFR) mL/mi n/1.73 h8Mcyrjiodc Range:Healthy Adults >90 mL/min/1.73 m2 For Chronic Kidney Disease: Stage II Mild Decrease i n GFR 60-90 Stage III Moderate Decrea se in GFR 30-59 St age IV Severe Decre ase in GFR 15-29 St age V Kidney Failur e <15 CREATININE (test code 0.77 mg/dL 0.55-1.30 [...] N TOTAL (test code = ALKP) PROTHROMBIN [id number] 17:40:00 Test Item Value Reference Range Interpretation Comments PROTHROMBIN TIME 11.7 secs 10.1-12.5 N PATIENT (test code = PTP) INTERNATIONAL NORMAL 1.03 <2.0 RECOMME NDED THERAPEUTIC RATIO (test code = RANGE FOR ORAL INR) ANTICOAGULANTTR EATMENT: CONDITION INRPr ophylaxis of venous throm bosis in 2.0 - 3.0 high- risk medical or surg ical patientsTreatme nt of venous thrombos is 2.0 - 3.0Prevention o f embolism 2.0 - 3.0Prevention o f recurrent embol ism, or 3.0 - 4.5 patie nts with mechanical pros thetic intravascular v chen IS PATIENT ON ANTICOAGULANTS ? YLIST ANTICOAGULANT/ANTI PLT MEDICATION : AspirinHas Lab been notified if Patient is on Heparin Drip? NOIf Yes, order CBC, OCCULT BLOOD, PT every other day NTHROMBOPLASTIN TIME [id number] 17:40:00 Test Item Value Reference Range Interpretation Comments PTT ACTIVATED (test code = APTT) 33.2 secs 24.9-37.0 N IS PATIENT ON ANTICOAGULANTS ? YLIST ANTICOAGULANT/ANTI PLT MEDICATION : AspirinHas Lab been notified if Patient is on Heparin Drip? NOIf Yes, order CBC, OCCULT BLOOD, PT every other day NCBC W/AUTO [id number] 17:09:00 Test Item Value Reference Range Interpretation [...] 0 % 0-0 N code = NRBC) CHEM [id number] 11:08:00 Test Item Value Reference Range Interpretation Comments eGFR (test code = eGFR) 93 [facility]2018-11-14 11:08:00 Test Item Value Reference Range Interpretation Comments Chloride Lvl (test code = Chloride Lvl) 101 95-109 [facility]2018-11-14 11:08:00 Test Item Value Reference Range Interpretation Comments Calcium Lvl (test code = Calcium Lvl) 8.0 8.5-10.5 [facility]2018-11-14 11:08:00 Test Item Value Reference Range Interpretation Comments CO2 (test code = CO2) 24 24-32 [facility]2018-11-14 11:08:00 Test Item Value Reference Range Interpretation Comments Sodium Lvl (test code = Sodium Lvl) 135 135-145 [facility]2018-11-14 11:08:00 Test Item Value Reference Range Interpretation Comments Creatinine Lvl (test code = Creatinine 0.72 0.50-1.40 Lvl) [facility]2018-11-14 11:08:00 Test Item Value Reference Range Interpretation Comments Potassium Lvl (test code = Potassium 3.6 3.5-5.1 Lvl) [facility]2018-11-14 11:08:00 Test Item Value Reference Range Interpretation Comments BUN (test code = BUN) 12 7-22 [facility]2018-11-14 11:08:00 Test Item Value Reference Range Interpretation Comments Glucose Lvl (test code = Glucose Lvl) 199 70-99 [facility]2018-11-14 11:08:00 Test Item Value Reference Range Interpretation Comments AGAP (test code = AGAP) 13.6 10.0-20.0 [id number] 11:08:00 Test Item Value Reference Range Interpretation Comments Lymphocytes # (test code = Lymphocytes 0.8 1.0-5.5 #) [facility]ervilleRtwvzceJHRSDRBTOL2163-03-30 11:08:00 Test Item Value Reference Range Interpretation Comments Monocytes (test code = Monocytes) 8.0 2.0-12.0 [facility][id number] 11:08:00 Test Item Value Reference Range Interpretation Comments Lymphocytes (test code = Lymphocytes) 10.4 20.0-40.0 [id number] 11:08:00 Test Item Value Reference Range Interpretation Comments Basophils (test code = 0.5 See_Comment [Aut omated message] The Basophils) system which ge nerated this result tra nsmitted reference range : <=1.0. The reference r ryan was not used to int erpret this result as normal/abnormal . [facility][id number] 11:08:00 Test Item Value Reference Range Interpretation Comments Eosinophils (test code = 3.2 See_Comment [A utomated message] The Eosinophils) system which ge nerated this result tra nsmitted reference range : <=4.0. The reference r ryan was not used to int erpret this result as normal/abnormal . [id number] 11:08:00 Test Item Value Reference Range Interpretation Comments Neutrophils # (test code = Neutrophils 5.9 1.5-8.1 #) [id number] 11:08:00 Test Item Value Reference Range Interpretation Comments Segs (test code = Segs) 77.9 45.0-75.0 [id number] 11:08:00 Test Item Value Reference Range Interpretation Comments Monocytes # (test code 0.6 See_Comment [Aut omated message] The = Monocytes #) system which generated this result tra nsmitted reference range : <=0.8. The reference r ryan was not used to int erpret this result as normal/abnormal . [facility][id number] 11:08:00 Test Item Value Reference Range Interpretation Comments Eosinophils # (test code 0.2 See_Comment [A utomated message] The = Eosinophils #) system whic h generated this result tra nsmitted reference range : <=0.5. The reference r ryan was not used to int erpret this result as normal/abnormal . [facility][id number] 11:08:00 Test Item Value Reference Range Interpretation Comments Platelet (test code = Platelet) 137 133-450 [facility][id number] 11:08:00 Test Item Value Reference Range Interpretation Comments MPV (test code = MPV) 8.3 7.4-10.4 [facility][id number] 11:08:00 Test Item Value Reference Range Interpretation Comments RDW (test code = RDW) 13.8 11.5-14.5 [facility]ervil[id number] 11:08:00 Test Item Value Reference Range Interpretation Comments MCHC (test code = MCHC) 34.7 32.0-36.0 [facility]ervilleRizxxiyYRGQACDJRG7329-03-40 11:08:00 Test Item Value Reference Range Interpretation Comments WBC (test code = WBC) 7.5 3.7-10.4 [facility]ervil[id number] 11:08:00 Test Item Value Reference Range Interpretation Comments MCH (test code = MCH) 32.3 pg 27.0-31.0 [facility]e[id number] 11:08:00 Test Item Value Reference Range Interpretation Comments RBC (test code = RBC) 2.75 4.70-6.10 [facility][id number] 11:08:00 Test Item Value Reference Range Interpretation Comments Hgb (test code = Hgb) 8.9 14.0-18.0 [facility][id number] 11:08:00 Test Item Value Reference Range Interpretation Comments Hct (test code = Hct) 25.6 42.0-54.0 [facility]ervilleXyyqavsHWABMGEHNR4216-37-64 11:08:00 Test Item Value Reference Range Interpretation Comments MCV (test code = MCV) 93.2 80.0-94.0 [facility]2018-11-14 11:08:00 Test Item Value Reference Range Interpretation Comments eGFR (test code = eGFR) 93 [facility] [id number] 11:08:00 Test Item Value Reference Range Interpretation Comments Chloride Lvl (test code = Chloride Lvl) 101 95-109 [facility]2018-11-14 11:08:00 Test Item Value Reference Range Interpretation Comments Calcium Lvl (test code = Calcium Lvl) 8.0 8.5-10.5 [facility]2018-11-14 11:08:00 Test Item Value Reference Range Interpretation Comments CO2 (test code = CO2) 24 24-32 [facility]2018-11-14 11:08:00 Test Item Value Reference Range Interpretation Comments Sodium Lvl (test code = Sodium Lvl) 135 135-145 [facility]2018-11-14 11:08:00 Test Item Value Reference Range Interpretation Comments Creatinine Lvl (test code = Creatinine 0.72 0.50-1.40 Lvl) [facility]2018-11-14 11:08:00 Test Item Value Reference Range Interpretation Comments Potassium Lvl (test code = Potassium 3.6 3.5-5.1 Lvl) [facility]2018-11-14 11:08:00 Test Item Value Reference Range Interpretation Comments BUN (test code = BUN) 12 7-22 [facility]2018-11-14 11:08:00 Test Item Value Reference Range Interpretation Comments Glucose Lvl (test code = Glucose Lvl) 199 70-99 [facility]2018-11-14 11:08:00 Test Item Value Reference Range Interpretation Comments AGAP (test code = AGAP) 13.6 10.0-20.0 [facility] [place]SmpzuwrWDWJIBMXQJ7972-27-15 11:08:00 Test Item Value Reference Range Interpretation Comments Lymphocytes # (test code = Lymphocytes 0.8 1.0-5.5 #) [facility] [place]SelthzrAUYGAANKUC2065-35-18 11:08:00 Test Item Value Reference Range Interpretation Comments Monocytes (test code = Monocytes) 8.0 2.0-12.0 [facility] [place]BdvkxejYFAHPCOAQD3452-26-09 11:08:00 Test Item Value Reference Range Interpretation Comments Lymphocytes (test code = Lymphocytes) 10.4 20.0-40.0 [facility] [place]SotktfkOBMRDHDIWJ8389-02-00 11:08:00 Test Item Value Reference Range Interpretation Comments Basophils (test code = 0.5 See_Comment [Aut omated message] The Basophils) system which ge nerated this result tra nsmitted reference range : <=1.0. The reference r ryan was not used to int erpret this result as normal/abnormal . [facility] [place]IqydwhrWQCIBDYYCH7919-44-86 11:08:00 Test Item Value Reference Range Interpretation Comments Eosinophils (test code = 3.2 See_Comment [A utomated message] The Eosinophils) system which ge nerated this result tra nsmitted reference range : <=4.0. The reference r ryan was not used to int erpret this result as normal/abnormal . [facility] [place]XwugjmpPLHMLTQMRB5159-60-09 11:08:00 Test Item Value Reference Range Interpretation Comments Neutrophils # (test code = Neutrophils 5.9 1.5-8.1 #) [facility] [place]DgtmznkYCKCDSELTN6211-12-16 11:08:00 Test Item Value Reference Range Interpretation Comments Segs (test code = Segs) 77.9 45.0-75.0 [facility] [place]PcwjfehRQCRMBVCOG5161-17-48 11:08:00 Test Item Value Reference Range Interpretation Comments Monocytes # (test code 0.6 See_Comment [Aut omated message] The = Monocytes #) system which generated this result tra nsmitted reference range : <=0.8. The reference r ryan was not used to int erpret this result as normal/abnormal . [facility] [place]MjskhcjPKGXVMTAKB9152-36-86 11:08:00 Test Item Value Reference Range Interpretation Comments Eosinophils # (test code 0.2 See_Comment [A utomated message] The = Eosinophils #) system whic h generated this result tra nsmitted reference range : <=0.5. The reference r ryan was not used to int erpret this result as normal/abnormal . [facility] [place]KcmtpcrLHPHDJCFJW4651-47-83 11:08:00 Test Item Value Reference Range Interpretation Comments Platelet (test code = Platelet) 137 133-450 [facility] [place]ervilleDpkimncKOBEVJKZFP4502-94-20 11:08:00 Test Item Value Reference Range Interpretation Comments MPV (test code = MPV) 8.3 7.4-10.4 [facility] [place]FxdwcijWVLNRCXHPD2606-03-20 11:08:00 Test Item Value Reference Range Interpretation Comments RDW (test code = RDW) 13.8 11.5-14.5 [facility] [place]SzzlvazWQLDPZBRAN2538-78-67 11:08:00 Test Item Value Reference Range Interpretation Comments MCHC (test code = MCHC) 34.7 32.0-36.0 [facility] [place]FccxhfuCHMAGKEZXY3668-53-99 11:08:00 Test Item Value Reference Range Interpretation Comments WBC (test code = WBC) 7.5 3.7-10.4 [facility] [place]VxcfnkuXNDSQMZLPY9391-10-95 11:08:00 Test Item Value Reference Range Interpretation Comments MCH (test code = MCH) 32.3 pg 27.0-31.0 [facility] [place]ByookkbDWCBJXFCHV1622-39-56 11:08:00 Test Item Value Reference Range Interpretation Comments RBC (test code = RBC) 2.75 4.70-6.10 [facility] [place]ervilleAnfuyhcHMEHGUZZMF8413-88-49 11:08:00 Test Item Value Reference Range Interpretation Comments Hgb (test code = Hgb) 8.9 14.0-18.0 [facility] [place]KtqkpckLJNZYAKZGX9559-77-56 11:08:00 Test Item Value Reference Range Interpretation Comments Hct (test code = Hct) 25.6 42.0-54.0 [facility] [place]TpdkuacNGUMVIEKBV0205-95-76 11:08:00 Test Item Value Reference Range Interpretation Comments MCV (test code = MCV) 93.2 80.0-94.0 [facility]2018-11-14 11:08:00 Test Item Value Reference Range Interpretation Comments eGFR (test code = eGFR) 93 [facility]2018-11-14 11:08:00 Test Item Value Reference Range Interpretation Comments Chloride Lvl (test code = Chloride Lvl) 101 95-109 [facility]2018-11-14 11:08:00 Test Item Value Reference Range Interpretation Comments Calcium Lvl (test code = Calcium Lvl) 8.0 8.5-10.5 [facility]2018-11-14 11:08:00 Test Item Value Reference Range Interpretation Comments CO2 (test code = CO2) 24 24-32 [facility]2018-11-14 11:08:00 Test Item Value Reference Range Interpretation Comments Sodium Lvl (test code = Sodium Lvl) 135 135-145 [facility]2018-11-14 11:08:00 Test Item Value Reference Range Interpretation Comments Creatinine Lvl (test code = Creatinine 0.72 0.50-1.40 Lvl) [facility]2018-11-14 11:08:00 Test Item Value Reference Range Interpretation Comments Potassium Lvl (test code = Potassium 3.6 3.5-5.1 Lvl) [facility]2018-11-14 11:08:00 Test Item Value Reference Range Interpretation Comments BUN (test code = BUN) 12 7-22 [facility]2018-11-14 11:08:00 Test Item Value Reference Range Interpretation Comments Glucose Lvl (test code = Glucose Lvl) 199 70-99 [place]358-11-14 11:08:00 Test Item Value Reference Range Interpretation Comments AGAP (test code = AGAP) 13.6 10.0-20.0 [facility] [place]IvyoikaSAZTFMDFKH0737-30-06 11:08:00 Test Item Value Reference Range Interpretation Comments Lymphocytes # (test code = Lymphocytes 0.8 1.0-5.5 #) [facility] [place]XfnqyigIXVWWANSWK5910-23-47 11:08:00 Test Item Value Reference Range Interpretation Comments Monocytes (test code = Monocytes) 8.0 2.0-12.0 [facility] [place]UmrleamACVZGXOLWV8933-79-13 11:08:00 Test Item Value Reference Range Interpretation Comments Lymphocytes (test code = Lymphocytes) 10.4 20.0-40.0 [facility] [place]CclpdkzCWWVVXNUES2053-60-10 11:08:00 Test Item Value Reference Range Interpretation Comments Basophils (test code = 0.5 See_Comment [Aut omated message] The Basophils) system which ge nerated this result tra nsmitted reference range : <=1.0. The reference r ryan was not used to int erpret this result as normal/abnormal . [facility]ervillePhusketAEREXFKFJQ4079-75-63 11:08:00 Test Item Value Reference Range Interpretation Comments Eosinophils (test code = 3.2 See_Comment [A utomated message] The Eosinophils) system which ge nerated this result tra nsmitted reference range : <=4.0. The reference r ryan was not used to int erpret this result as normal/abnormal . [facility] [place]ervilleWhsrwtgVUHZOPWRWF5100-59-63 11:08:00 Test Item Value Reference Range Interpretation Comments Neutrophils # (test code = Neutrophils 5.9 1.5-8.1 #) [facility] [place]CscghcxWSHTNKKWSZ7207-01-83 11:08:00 Test Item Value Reference Range Interpretation Comments Segs (test code = Segs) 77.9 45.0-75.0 [facility] [place]FngzffcUXKHBLGMFY7397-75-82 11:08:00 Test Item Value Reference Range Interpretation Comments Monocytes # (test code 0.6 See_Comment [Aut omated message] The = Monocytes #) system which generated this result tra nsmitted reference range : <=0.8. The reference r ryan was not used to int erpret this result as normal/abnormal . [facility] [place]ervilleLlcqafuPAXJKRYWCJ8525-82-27 11:08:00 Test Item Value Reference Range Interpretation Comments Eosinophils # (test code 0.2 See_Comment [A utomated message] The = Eosinophils #) system whic h generated this result tra nsmitted reference range : <=0.5. The reference r ryan was not used to int erpret this result as normal/abnormal . [facility]ervilleRdksvglBZFGIQUIHG0720-50-37 11:08:00 Test Item Value Reference Range Interpretation Comments Platelet (test code = Platelet) 137 133-450 [facility] [place]ervilleUlsebepHRHJBPEPAI8971-69-21 11:08:00 Test Item Value Reference Range Interpretation Comments MPV (test code = MPV) 8.3 7.4-10.4 [facility] [place]ervilleEseseetYSTFQRQAVL8964-31-21 11:08:00 Test Item Value Reference Range Interpretation Comments RDW (test code = RDW) 13.8 11.5-14.5 [facility] [place]IlskbnaIMNUUSDKUO5511-26-84 11:08:00 Test Item Value Reference Range Interpretation Comments MCHC (test code = MCHC) 34.7 32.0-36.0 [facility] [place]ervilleHwrdqucNEJEKLQFYM3009-68-47 11:08:00 Test Item Value Reference Range Interpretation Comments WBC (test code = WBC) 7.5 3.7-10.4 [facility] [place]PkzcnohWRZKOFBOJC2763-54-13 11:08:00 Test Item Value Reference Range Interpretation Comments MCH (test code = MCH) 32.3 pg 27.0-31.0 [facility] [place]XqunbeiLGJNJBBHIE2183-78-81 11:08:00 Test Item Value Reference Range Interpretation Comments RBC (test code = RBC) 2.75 4.70-6.10 [facility] [place]VwzuoypTCXRZWFNUS8364-33-07 11:08:00 Test Item Value Reference Range Interpretation Comments Hgb (test code = Hgb) 8.9 14.0-18.0 [facility] [place]ervilleHnikureLDWOGZKQWP5775-29-69 11:08:00 Test Item Value Reference Range Interpretation Comments Hct (test code = Hct) 25.6 42.0-54.0 [facility] [place]VnpswucAMEKIXKGTZ0588-24-68 11:08:00 Test Item Value Reference Range Interpretation Comments MCV (test code = MCV) 93.2 80.0-94.0 [facility]2018-11-14 11:08:00 Test Item Value Reference Range Interpretation Comments eGFR (test code = eGFR) 93 [facility]2018-11-14 11:08:00 Test Item Value Reference Range Interpretation Comments Chloride Lvl (test code = Chloride Lvl) 101 95-109 [facility]2018-11-14 11:08:00 Test Item Value Reference Range Interpretation Comments Calcium Lvl (test code = Calcium Lvl) 8.0 8.5-10.5 [facility]2018-11-14 11:08:00 Test Item Value Reference Range Interpretation Comments CO2 (test code = CO2) 24 24-32 [facility]2018-11-14 11:08:00 Test Item Value Reference Range Interpretation Comments Sodium Lvl (test code = Sodium Lvl) 135 135-145 [facility]2018-11-14 11:08:00 Test Item Value Reference Range Interpretation Comments Creatinine Lvl (test code = Creatinine 0.72 0.50-1.40 Lvl) [facility]2018-11-14 11:08:00 Test Item Value Reference Range Interpretation Comments Potassium Lvl (test code = Potassium 3.6 3.5-5.1 Lvl) [facility]2018-11-14 11:08:00 Test Item Value Reference Range Interpretation Comments BUN (test code = BUN) 12 7-22 [facility]2018-11-14 11:08:00 Test Item Value Reference Range Interpretation Comments Glucose Lvl (test code = Glucose Lvl) 199 70-99 [facility]2018-11-14 11:08:00 Test Item Value Reference Range Interpretation Comments AGAP (test code = AGAP) 13.6 10.0-20.0 [facility] [place]ervilleUuxwsaiBDRBMAOMVG4865-82-09 11:08:00 Test Item Value Reference Range Interpretation Comments Lymphocytes # (test code = Lymphocytes 0.8 1.0-5.5 #) [facility] [place]ervilleWngqgzkQMEAGDAPHR6883-21-11 11:08:00 Test Item Value Reference Range Interpretation Comments Monocytes (test code = Monocytes) 8.0 2.0-12.0 [facility] [place]SqezprqQWDLZOUFBP9394-08-23 11:08:00 Test Item Value Reference Range Interpretation Comments Lymphocytes (test code = Lymphocytes) 10.4 20.0-40.0 [facility] [place]ervilleDuonwivSGCNTABWNR7317-55-06 11:08:00 Test Item Value Reference Range Interpretation Comments Basophils (test code = 0.5 See_Comment [Aut omated message] The Basophils) system which ge nerated this result tra nsmitted reference range : <=1.0. The reference r ryan was not used to int erpret this result as normal/abnormal . [facility] [place]ervilleDprvhysTZYIXSFWLV0294-11-48 11:08:00 Test Item Value Reference Range Interpretation Comments Eosinophils (test code = 3.2 See_Comment [A utomated message] The Eosinophils) system which ge nerated this result tra nsmitted reference range : <=4.0. The reference r ryan was not used to int erpret this result as normal/abnormal . [facility]CgjxglrABAUWUPOYA0083-03-40 11:08:00 Test Item Value Reference Range Interpretation Comments Neutrophils # (test code = Neutrophils 5.9 1.5-8.1 #) [facility] [place]SrdmhgfAODWNWDIIQ5604-64-18 11:08:00 Test Item Value Reference Range Interpretation Comments Segs (test code = Segs) 77.9 45.0-75.0 [facility] [place]ervilleUlabtyfZPWBYYMVKC9427-85-70 11:08:00 Test Item Value Reference Range Interpretation Comments Monocytes # (test code 0.6 See_Comment [Aut omated message] The = Monocytes #) system which generated this result tra nsmitted reference range : <=0.8. The reference r ryan was not used to int erpret this result as normal/abnormal . [facility]ervilleZewyigvIIFCGXPQWA0178-73-44 11:08:00 Test Item Value Reference Range Interpretation Comments Eosinophils # (test code 0.2 See_Comment [A utomated message] The = Eosinophils #) system whic h generated this result tra nsmitted reference range : <=0.5. The reference r ryan was not used to int erpret this result as normal/abnormal . [facility]ervilleWbdiequYBCOCPWOUC6217-38-94 11:08:00 Test Item Value Reference Range Interpretation Comments Platelet (test code = Platelet) 137 133-450 [facility] [place]ervilleJovbeheNOQIKFQOTM5145-80-60 11:08:00 Test Item Value Reference Range Interpretation Comments MPV (test code = MPV) 8.3 7.4-10.4 [facility] [place]ervilleZxpxvlkFUPRYFDWTN9788-62-60 11:08:00 Test Item Value Reference Range Interpretation Comments RDW (test code = RDW) 13.8 11.5-14.5 [facility] [place]ervilleZejskemDZBGRFRMNS4669-58-81 11:08:00 Test Item Value Reference Range Interpretation Comments MCHC (test code = MCHC) 34.7 32.0-36.0 [facility] [place]DlcwhnkFWMRKEHXHU3614-77-04 11:08:00 Test Item Value Reference Range Interpretation Comments WBC (test code = WBC) 7.5 3.7-10.4 [facility] [place]ervilleVllliwlAXCAKFABRM0834-27-44 11:08:00 Test Item Value Reference Range Interpretation Comments MCH (test code = MCH) 32.3 pg 27.0-31.0 [facility] [place]ervilleDunnhbnMKBATRBTID0360-79-96 11:08:00 Test Item Value Reference Range Interpretation Comments RBC (test code = RBC) 2.75 4.70-6.10 [facility] [place]ervilleMklgqpgXDUJNHWYFN2529-55-07 11:08:00 Test Item Value Reference Range Interpretation Comments Hgb (test code = Hgb) 8.9 14.0-18.0 [facility] [place]ervilleHvuxhbpSEMJEKUMOP4001-10-31 11:08:00 Test Item Value Reference Range Interpretation Comments Hct (test code = Hct) 25.6 42.0-54.0 [facility] [place]ervilleTdfznswHQAXQWJQAO9311-01-85 11:08:00 Test Item Value Reference Range Interpretation Comments MCV (test code = MCV) 93.2 80.0-94.0 [facility]2018-11-14 11:08:00 Test Item Value Reference Range Interpretation Comments eGFR (test code = eGFR) 93 [facility]2018-11-14 11:08:00 Test Item Value Reference Range Interpretation Comments Chloride Lvl (test code = Chloride Lvl) 101 95-109 [facility]2018-11-14 11:08:00 Test Item Value Reference Range Interpretation Comments Calcium Lvl (test code = Calcium Lvl) 8.0 8.5-10.5 [facility]2018-11-14 11:08:00 Test Item Value Reference Range Interpretation Comments CO2 (test code = CO2) 24 24-32 [facility]2018-11-14 11:08:00 Test Item Value Reference Range Interpretation Comments Sodium Lvl (test code = Sodium Lvl) 135 135-145 [facility]2018-11-14 11:08:00 Test Item Value Reference Range Interpretation Comments Creatinine Lvl (test code = Creatinine 0.72 0.50-1.40 Lvl) [facility]2018-11-14 11:08:00 Test Item Value Reference Range Interpretation Comments Potassium Lvl (test code = Potassium 3.6 3.5-5.1 Lvl) [facility]2018-11-14 11:08:00 Test Item Value Reference Range Interpretation Comments BUN (test code = BUN) 12 7-22 [facility]2018-11-14 11:08:00 Test Item Value Reference Range Interpretation Comments Glucose Lvl (test code = Glucose Lvl) 199 70-99 [facility]2018-11-14 11:08:00 Test Item Value Reference Range Interpretation Comments AGAP (test code = AGAP) 13.6 10.0-20.0 [facility] [place]ervilleNkazgxcMBEXHTKDUX2851-46-12 11:08:00 Test Item Value Reference Range Interpretation Comments Lymphocytes # (test code = Lymphocytes 0.8 1.0-5.5 #) [facility] [place]ervilleNjzmfbwMIGTFUZFAZ2125-67-04 11:08:00 Test Item Value Reference Range Interpretation Comments Monocytes (test code = Monocytes) 8.0 2.0-12.0 [facility] [place]ervilleDnlmszmJAODNTMNSS4115-77-28 11:08:00 Test Item Value Reference Range Interpretation Comments Lymphocytes (test code = Lymphocytes) 10.4 20.0-40.0 [facility] [place]ervilleBppctwxLOBKIXQVRN9274-64-24 11:08:00 Test Item Value Reference Range Interpretation Comments Basophils (test code = 0.5 See_Comment [Aut omated message] The Basophils) system which ge nerated this result tra nsmitted reference range : <=1.0. The reference r ryan was not used to int erpret this result as normal/abnormal . [facility]ervilleUnvespsGYUYVEWLIR1140-97-07 11:08:00 Test Item Value Reference Range Interpretation Comments Eosinophils (test code = 3.2 See_Comment [A utomated message] The Eosinophils) system which ge nerated this result tra nsmitted reference range : <=4.0. The reference r ryan was not used to int erpret this result as normal/abnormal . [facility]LsxiwyeRTZQKPADAA0259-07-23 11:08:00 Test Item Value Reference Range Interpretation Comments Neutrophils # (test code = Neutrophils 5.9 1.5-8.1 #) [facility]QlqvwbtHLDYQUTJTZ1106-89-36 11:08:00 Test Item Value Reference Range Interpretation Comments Segs (test code = Segs) 77.9 45.0-75.0 [facility] [place]ElizprhPWYFTHOMQS0318-41-75 11:08:00 Test Item Value Reference Range Interpretation Comments Monocytes # (test code 0.6 See_Comment [Aut omated message] The = Monocytes #) system which generated this result tra nsmitted reference range : <=0.8. The reference r ryan was not used to int erpret this result as normal/abnormal . [facility]QxnbcmiTCKBGGEWVD8652-81-05 11:08:00 Test Item Value Reference Range Interpretation Comments Eosinophils # (test code 0.2 See_Comment [A utomated message] The = Eosinophils #) system whic h generated this result tra nsmitted reference range : <=0.5. The reference r ryan was not used to int erpret this result as normal/abnormal . [facility]ervilleNozmvxeKNEMZAPWVO6086-22-28 11:08:00 Test Item Value Reference Range Interpretation Comments Platelet (test code = Platelet) 137 133-450 [facility] [place]ervilleUppfheeXJITZBLJFZ8814-28-20 11:08:00 Test Item Value Reference Range Interpretation Comments MPV (test code = MPV) 8.3 7.4-10.4 [facility] [place]IlxyhxjDENVEMFNWB1123-41-28 11:08:00 Test Item Value Reference Range Interpretation Comments RDW (test code = RDW) 13.8 11.5-14.5 [facility]ervillePaaatfxKJMEJYEELB4469-25-85 11:08:00 Test Item Value Reference Range Interpretation Comments MCHC (test code = MCHC) 34.7 32.0-36.0 [facility] [place]ervilleTgopdlcTFLPIHEUBY7002-41-52 11:08:00 Test Item Value Reference Range Interpretation Comments WBC (test code = WBC) 7.5 3.7-10.4 [facility] [place]ervilleFdilbrtYBWTWYMQIA3377-34-75 11:08:00 Test Item Value Reference Range Interpretation Comments MCH (test code = MCH) 32.3 pg 27.0-31.0 [facility] [place]ervilleZafdazaSKISUBOBWU5057-55-27 11:08:00 Test Item Value Reference Range Interpretation Comments RBC (test code = RBC) 2.75 4.70-6.10 [facility] [place]KjlyxowGWLSUBTMTT0490-06-50 11:08:00 Test Item Value Reference Range Interpretation Comments Hgb (test code = Hgb) 8.9 14.0-18.0 [facility] [place]ervilleAxtafntTPUXMPZFTK5712-90-08 11:08:00 Test Item Value Reference Range Interpretation Comments Hct (test code = Hct) 25.6 42.0-54.0 [facility] [place]ervilleImhyalmWVOBCPLTHM9720-28-19 11:08:00 Test Item Value Reference Range Interpretation Comments MCV (test code = MCV) 93.2 80.0-94.0 [facility]2018-11-14 11:08:00 Test Item Value Reference Range Interpretation Comments eGFR (test code = eGFR) 93 [facility]2018-11-14 11:08:00 Test Item Value Reference Range Interpretation Comments Chloride Lvl (test code = Chloride Lvl) 101 95-109 [facility]2018-11-14 11:08:00 Test Item Value Reference Range Interpretation Comments Calcium Lvl (test code = Calcium Lvl) 8.0 8.5-10.5 [facility]2018-11-14 11:08:00 Test Item Value Reference Range Interpretation Comments CO2 (test code = CO2) 24 24-32 [facility]2018-11-14 11:08:00 Test Item Value Reference Range Interpretation Comments Sodium Lvl (test code = Sodium Lvl) 135 135-145 [facility]2018-11-14 11:08:00 Test Item Value Reference Range Interpretation Comments Creatinine Lvl (test code = Creatinine 0.72 0.50-1.40 Lvl) [facility]2018-11-14 11:08:00 Test Item Value Reference Range Interpretation Comments Potassium Lvl (test code = Potassium 3.6 3.5-5.1 Lvl) [facility]2018-11-14 11:08:00 Test Item Value Reference Range Interpretation Comments BUN (test code = BUN) 12 7-22 [facility]2018-11-14 11:08:00 Test Item Value Reference Range Interpretation Comments Glucose Lvl (test code = Glucose Lvl) 199 70-99 [facility]2018-11-14 11:08:00 Test Item Value Reference Range Interpretation Comments AGAP (test code = AGAP) 13.6 10.0-20.0 [facility] [place]VcsijgyWFBLFEDWLB1044-07-57 11:08:00 Test Item Value Reference Range Interpretation Comments Lymphocytes # (test code = Lymphocytes 0.8 1.0-5.5 #) [facility] [place]FktnnbgLSYKBPOGJA7576-69-83 11:08:00 Test Item Value Reference Range Interpretation Comments Monocytes (test code = Monocytes) 8.0 2.0-12.0 [facility] [place]NhjgugaTGJGWBRXUN8321-10-36 11:08:00 Test Item Value Reference Range Interpretation Comments Lymphocytes (test code = Lymphocytes) 10.4 20.0-40.0 [facility] [place]UlnqflfDJSJWCJLUJ1830-64-65 11:08:00 Test Item Value Reference Range Interpretation Comments Basophils (test code = 0.5 See_Comment [Aut omated message] The Basophils) system which nerated this result tra nsmitted reference range : <=1.0. The reference r ryan was not used to int erpret this result as normal/abnormal . [facility] [place]AtxfzacOBDWIRDYUL8959-60-72 11:08:00 Test Item Value Reference Range Interpretation Comments Eosinophils (test code = 3.2 See_Comment [A utomated message] The Eosinophils) system which ge nerated this result tra nsmitted reference range : <=4.0. The reference r ryan was not used to int erpret this result as normal/abnormal . [facility]IggomsfRVMUGMLPGI7499-76-12 11:08:00 Test Item Value Reference Range Interpretation Comments Neutrophils # (test code = Neutrophils 5.9 1.5-8.1 #) [facility]BtvyhpfOTTDBFWBOU1427-06-30 11:08:00 Test Item Value Reference Range Interpretation Comments Segs (test code = Segs) 77.9 45.0-75.0 [facility] [place]QjqoapjWYFVRGQCOL5456-26-72 11:08:00 Test Item Value Reference Range Interpretation Comments Monocytes # (test code 0.6 See_Comment [Aut omated message] The = Monocytes #) system which generated this result tra nsmitted reference range : <=0.8. The reference r ryan was not used to int erpret this result as normal/abnormal . [facility]HhelcejGVUADFDYBB7765-57-21 11:08:00 Test Item Value Reference Range Interpretation Comments Eosinophils # (test code 0.2 See_Comment [A utomated message] The = Eosinophils #) system whic h generated this result tra nsmitted reference range : <=0.5. The reference r ryan was not used to int erpret this result as normal/abnormal . [facility]AabwqaqPGMDRAWSAC8492-55-57 11:08:00 Test Item Value Reference Range Interpretation Comments Platelet (test code = Platelet) 137 133-450 [facility] [place]ervilleFuibzxnYQNZOSLUQD8009-66-77 11:08:00 Test Item Value Reference Range Interpretation Comments MPV (test code = MPV) 8.3 7.4-10.4 [facility] [place]FmfuypxKTWTCDYEFC3809-93-77 11:08:00 Test Item Value Reference Range Interpretation Comments RDW (test code = RDW) 13.8 11.5-14.5 [facility] [place]ervilleKugkmugWYNRDBUVBK0229-60-14 11:08:00 Test Item Value Reference Range Interpretation Comments MCHC (test code = MCHC) 34.7 32.0-36.0 [facility] [place]RfzwnpyHARSIXMBXO1814-53-85 11:08:00 Test Item Value Reference Range Interpretation Comments WBC (test code = WBC) 7.5 3.7-10.4 [facility] [place]MfoaijdURDMSSPXWD4506-43-27 11:08:00 Test Item Value Reference Range Interpretation Comments MCH (test code = MCH) 32.3 pg 27.0-31.0 [facility] [place]HfggvmzFUGUPMGKZA0303-09-09 11:08:00 Test Item Value Reference Range Interpretation Comments RBC (test code = RBC) 2.75 4.70-6.10 [facility] [place]ervilleJfznrowKSRNMIXZIL6328-34-08 11:08:00 Test Item Value Reference Range Interpretation Comments Hgb (test code = Hgb) 8.9 14.0-18.0 [facility] [place]ervilleZlbmrunIOWXCIEATB8464-45-03 11:08:00 Test Item Value Reference Range Interpretation Comments Hct (test code = Hct) 25.6 42.0-54.0 [facility] [place]GxwhqcjKMCCHXFHYP1217-18-22 11:08:00 Test Item Value Reference Range Interpretation Comments MCV (test code = MCV) 93.2 80.0-94.0 [facility]2018-11-14 11:08:00 Test Item Value Reference Range Interpretation Comments eGFR (test code = eGFR) 93 [facility]2018-11-14 11:08:00 Test Item Value Reference Range Interpretation Comments Chloride Lvl (test code = Chloride Lvl) 101 95-109 [facility]2018-11-14 11:08:00 Test Item Value Reference Range Interpretation Comments Calcium Lvl (test code = Calcium Lvl) 8.0 8.5-10.5 [facility]2018-11-14 11:08:00 Test Item Value Reference Range Interpretation Comments CO2 (test code = CO2) 24 24-32 [facility]2018-11-14 11:08:00 Test Item Value Reference Range Interpretation Comments Sodium Lvl (test code = Sodium Lvl) 135 135-145 [facility]2018-11-14 11:08:00 Test Item Value Reference Range Interpretation Comments Creatinine Lvl (test code = Creatinine 0.72 0.50-1.40 Lvl) [facility]2018-11-14 11:08:00 Test Item Value Reference Range Interpretation Comments Potassium Lvl (test code = Potassium 3.6 3.5-5.1 Lvl) [facility]2018-11-14 11:08:00 Test Item Value Reference Range Interpretation Comments BUN (test code = BUN) 12 7-22 [facility]2018-11-14 11:08:00 Test Item Value Reference Range Interpretation Comments Glucose Lvl (test code = Glucose Lvl) 199 70-99 [facility]2018-11-14 11:08:00 Test Item Value Reference Range Interpretation Comments AGAP (test code = AGAP) 13.6 10.0-20.0 [facility] [place]CoezbpdULYJVXEBRX9182-67-28 11:08:00 Test Item Value Reference Range Interpretation Comments Lymphocytes # (test code = Lymphocytes 0.8 1.0-5.5 #) [facility]VoybwgvHLZYAPQGHX3746-43-20 11:08:00 Test Item Value Reference Range Interpretation Comments Monocytes (test code = Monocytes) 8.0 2.0-12.0 [facility] [place]UofjgifXDGGZWUCBH9454-87-59 11:08:00 Test Item Value Reference Range Interpretation Comments Lymphocytes (test code = Lymphocytes) 10.4 20.0-40.0 [facility] [place]VvccemvKHMMDMGDZB2165-08-24 11:08:00 Test Item Value Reference Range Interpretation Comments Basophils (test code = 0.5 See_Comment [Aut omated message] The Basophils) system which ge nerated this result tra nsmitted reference range : <=1.0. The reference r ryan was not used to int erpret this result as normal/abnormal . [facility]ObpywhjAVISENIXRB4226-99-30 11:08:00 Test Item Value Reference Range Interpretation Comments Eosinophils (test code = 3.2 See_Comment [A utomated message] The Eosinophils) system which ge nerated this result tra nsmitted reference range : <=4.0. The reference r ryan was not used to int erpret this result as normal/abnormal . [facility]JihmrzqMTFYVSMIBC6405-58-52 11:08:00 Test Item Value Reference Range Interpretation Comments Neutrophils # (test code = Neutrophils 5.9 1.5-8.1 #) [facility] [place]MgjmzrtXYTRZIQPWW5916-69-03 11:08:00 Test Item Value Reference Range Interpretation Comments Segs (test code = Segs) 77.9 45.0-75.0 [facility]RdeyagdELQLTWGBPU8228-62-73 11:08:00 Test Item Value Reference Range Interpretation Comments Monocytes # (test code 0.6 See_Comment [Aut omated message] The = Monocytes #) system which generated this result tra nsmitted reference range : <=0.8. The reference r ryan was not used to int erpret this result as normal/abnormal . [facility]MsvpumtODZPXPSWXY6224-94-87 11:08:00 Test Item Value Reference Range Interpretation Comments Eosinophils # (test code 0.2 See_Comment [A utomated message] The = Eosinophils #) system whic h generated this result tra nsmitted reference range : <=0.5. The reference r ryan was not used to int erpret this result as normal/abnormal . [facility] [place]ervilleZmyptayWBBYEKSTCI3437-79-10 11:08:00 Test Item Value Reference Range Interpretation Comments Platelet (test code = Platelet) 137 133-450 [facility]SqflpdvSXLWAHEFSP8334-42-42 11:08:00 Test Item Value Reference Range Interpretation Comments MPV (test code = MPV) 8.3 7.4-10.4 [facility]ervilleWhivqalEGOVXVBMHG4966-46-09 11:08:00 Test Item Value Reference Range Interpretation Comments RDW (test code = RDW) 13.8 11.5-14.5 [facility] [place]IwmqaliQYQXANQJUW5753-32-37 11:08:00 Test Item Value Reference Range Interpretation Comments MCHC (test code = MCHC) 34.7 32.0-36.0 [facility] [place]IqehwqvECRYKSDELE2693-80-14 11:08:00 Test Item Value Reference Range Interpretation Comments WBC (test code = WBC) 7.5 3.7-10.4 [facility]ervilleRvjolpvCDAQRVMEZI8424-79-38 11:08:00 Test Item Value Reference Range Interpretation Comments MCH (test code = MCH) 32.3 pg 27.0-31.0 [facility]ervilleBfbuvloGODYYNICDN7070-33-33 11:08:00 Test Item Value Reference Range Interpretation Comments RBC (test code = RBC) 2.75 4.70-6.10 [facility] [place]ervilleQuhmuzzPVGSPKUUQO6435-13-56 11:08:00 Test Item Value Reference Range Interpretation Comments Hgb (test code = Hgb) 8.9 14.0-18.0 [facility]YvmqwnkPMDIAVTZUV3738-21-14 11:08:00 Test Item Value Reference Range Interpretation Comments Hct (test code = Hct) 25.6 42.0-54.0 [facility]ervilleLzkvpasZMGACZXCDS9524-92-69 11:08:00 Test Item Value Reference Range Interpretation Comments MCV (test code = MCV) 93.2 80.0-94.0 [facility]2018-11-13 03:57:00 Test Item Value Reference Range Interpretation Comments Osmolality (test code = Osmolality) 274 280-300 [facility]2018-11-13 03:57:00 Test Item Value Reference Range Interpretation Comments eGFR (test code = eGFR) 92 [facility]2018-11-13 03:57:00 Test Item Value Reference Range Interpretation Comments CO2 (test code = CO2) 25 24-32 [facility]2018-11-13 03:57:00 Test Item Value Reference Range Interpretation Comments Chloride Lvl (test code = Chloride Lvl) 98 95-109 [facility]2018-11-13 03:57:00 Test Item Value Reference Range Interpretation Comments Sodium Lvl (test code = Sodium Lvl) 133 135-145 [facility]2018-11-13 03:57:00 Test Item Value Reference Range Interpretation Comments Potassium Lvl (test code = Potassium 3.8 3.5-5.1 Lvl) [facility]2018-11-13 03:57:00 Test Item Value Reference Range Interpretation Comments AGAP (test code = AGAP) 13.8 10.0-20.0 [facility]2018-11-13 03:57:00 Test Item Value Reference Range Interpretation Comments Calcium Lvl (test code = Calcium Lvl) 7.5 8.5-10.5 [facility]2018-11-13 03:57:00 Test Item Value Reference Range Interpretation Comments Creatinine Lvl (test code = Creatinine 0.74 0.50-1.40 Lvl) [facility]2018-11-13 03:57:00 Test Item Value Reference Range Interpretation Comments Glucose Lvl (test code = Glucose Lvl) 203 70-99 [facility]2018-11-13 03:57:00 Test Item Value Reference Range Interpretation Comments BUN (test code = BUN) 12 7-22 [facility]2018-11-13 03:57:00 Test Item Value Reference Range Interpretation Comments U Osmolality (test code = U Osmolality) 454 300-800 [facility]2018-11-13 03:57:00 Test Item Value Reference Range Interpretation Comments Osmolality (test code = Osmolality) 274 280-300 [facility]2018-11-13 03:57:00 Test Item Value Reference Range Interpretation Comments eGFR (test code = eGFR) 92 [facility]2018-11-13 03:57:00 Test Item Value Reference Range Interpretation Comments CO2 (test code = CO2) 25 24-32 [facility]2018-11-13 03:57:00 Test Item Value Reference Range Interpretation Comments Chloride Lvl (test code = Chloride Lvl) 98 95-109 [facility]2018-11-13 03:57:00 Test Item Value Reference Range Interpretation Comments Sodium Lvl (test code = Sodium Lvl) 133 135-145 [facility]2018-11-13 03:57:00 Test Item Value Reference Range Interpretation Comments Potassium Lvl (test code = Potassium 3.8 3.5-5.1 Lvl) [facility]2018-11-13 03:57:00 Test Item Value Reference Range Interpretation Comments AGAP (test code = AGAP) 13.8 10.0-20.0 [facility]2018-11-13 03:57:00 Test Item Value Reference Range Interpretation Comments Calcium Lvl (test code = Calcium Lvl) 7.5 8.5-10.5 [facility]2018-11-13 03:57:00 Test Item Value Reference Range Interpretation Comments Creatinine Lvl (test code = Creatinine 0.74 0.50-1.40 Lvl) [facility]2018-11-13 03:57:00 Test Item Value Reference Range Interpretation Comments Glucose Lvl (test code = Glucose Lvl) 203 70-99 [facility]2018-11-13 03:57:00 Test Item Value Reference Range Interpretation Comments BUN (test code = BUN) 12 7-22 [facility]2018-11-13 03:57:00 Test Item Value Reference Range Interpretation Comments U Osmolality (test code = U Osmolality) 454 300-800 [facility]2018-11-13 03:57:00 Test Item Value Reference Range Interpretation Comments Osmolality (test code = Osmolality) 274 280-300 [facility]2018-11-13 03:57:00 Test Item Value Reference Range Interpretation Comments eGFR (test code = eGFR) 92 [facility]2018-11-13 03:57:00 Test Item Value Reference Range Interpretation Comments CO2 (test code = CO2) 25 24-32 [facility]2018-11-13 03:57:00 Test Item Value Reference Range Interpretation Comments Chloride Lvl (test code = Chloride Lvl) 98 95-109 [facility]2018-11-13 03:57:00 Test Item Value Reference Range Interpretation Comments Sodium Lvl (test code = Sodium Lvl) 133 135-145 [facility]2018-11-13 03:57:00 Test Item Value Reference Range Interpretation Comments Potassium Lvl (test code = Potassium 3.8 3.5-5.1 Lvl) [facility]2018-11-13 03:57:00 Test Item Value Reference Range Interpretation Comments AGAP (test code = AGAP) 13.8 10.0-20.0 [facility]2018-11-13 03:57:00 Test Item Value Reference Range Interpretation Comments Calcium Lvl (test code = Calcium Lvl) 7.5 8.5-10.5 [facility]2018-11-13 03:57:00 Test Item Value Reference Range Interpretation Comments Creatinine Lvl (test code = Creatinine 0.74 0.50-1.40 Lvl) [facility]2018-11-13 03:57:00 Test Item Value Reference Range Interpretation Comments Glucose Lvl (test code = Glucose Lvl) 203 70-99 [facility]2018-11-13 03:57:00 Test Item Value Reference Range Interpretation Comments BUN (test code = BUN) 12 7-22 [facility] [id number] 03:57:00 Test Item Value Reference Range Interpretation Comments U Osmolality (test code = U Osmolality) 454 300-800 [facility]2018-11-13 03:57:00 Test Item Value Reference Range Interpretation Comments Osmolality (test code = Osmolality) 274 280-300 [facility]2018-11-13 03:57:00 Test Item Value Reference Range Interpretation Comments eGFR (test code = eGFR) 92 [facility]2018-11-13 03:57:00 Test Item Value Reference Range Interpretation Comments CO2 (test code = CO2) 25 24-32 [facility]2018-11-13 03:57:00 Test Item Value Reference Range Interpretation Comments Chloride Lvl (test code = Chloride Lvl) 98 95-109 [facility]2018-11-13 03:57:00 Test Item Value Reference Range Interpretation Comments Sodium Lvl (test code = Sodium Lvl) 133 135-145 [facility]2018-11-13 03:57:00 Test Item Value Reference Range Interpretation Comments Potassium Lvl (test code = Potassium 3.8 3.5-5.1 Lvl) [facility]2018-11-13 03:57:00 Test Item Value Reference Range Interpretation Comments AGAP (test code = AGAP) 13.8 10.0-20.0 [facility]2018-11-13 03:57:00 Test Item Value Reference Range Interpretation Comments Calcium Lvl (test code = Calcium Lvl) 7.5 8.5-10.5 [facility]2018-11-13 03:57:00 Test Item Value Reference Range Interpretation Comments Creatinine Lvl (test code = Creatinine 0.74 0.50-1.40 Lvl) [facility]2018-11-13 03:57:00 Test Item Value Reference Range Interpretation Comments Glucose Lvl (test code = Glucose Lvl) 203 70-99 [facility]2018-11-13 03:57:00 Test Item Value Reference Range Interpretation Comments BUN (test code = BUN) 12 7-22 [facility]2018-11-13 03:57:00 Test Item Value Reference Range Interpretation Comments U Osmolality (test code = U Osmolality) 454 300-800 [facility]2018-11-13 03:57:00 Test Item Value Reference Range Interpretation Comments Osmolality (test code = Osmolality) 274 280-300 [facility]2018-11-13 03:57:00 Test Item Value Reference Range Interpretation Comments eGFR (test code = eGFR) 92 [facility]2018-11-13 03:57:00 Test Item Value Reference Range Interpretation Comments CO2 (test code = CO2) 25 24-32 [facility]2018-11-13 03:57:00 Test Item Value Reference Range Interpretation Comments Chloride Lvl (test code = Chloride Lvl) 98 95-109 [facility]2018-11-13 03:57:00 Test Item Value Reference Range Interpretation Comments Sodium Lvl (test code = Sodium Lvl) 133 135-145 [facility]2018-11-13 03:57:00 Test Item Value Reference Range Interpretation Comments Potassium Lvl (test code = Potassium 3.8 3.5-5.1 Lvl) [facility]2018-11-13 03:57:00 Test Item Value Reference Range Interpretation Comments AGAP (test code = AGAP) 13.8 10.0-20.0 [facility]2018-11-13 03:57:00 Test Item Value Reference Range Interpretation Comments Calcium Lvl (test code = Calcium Lvl) 7.5 8.5-10.5 [facility]2018-11-13 03:57:00 Test Item Value Reference Range Interpretation Comments Creatinine Lvl (test code = Creatinine 0.74 0.50-1.40 Lvl) [facility]2018-11-13 03:57:00 Test Item Value Reference Range Interpretation Comments Glucose Lvl (test code = Glucose Lvl) 203 70-99 [facility]2018-11-13 03:57:00 Test Item Value Reference Range Interpretation Comments BUN (test code = BUN) 12 7-22 [facility] [id number] 03:57:00 Test Item Value Reference Range Interpretation Comments U Osmolality (test code = U Osmolality) 454 300-800 [facility]2018-11-13 03:57:00 Test Item Value Reference Range Interpretation Comments Osmolality (test code = Osmolality) 274 280-300 [facility]2018-11-13 03:57:00 Test Item Value Reference Range Interpretation Comments eGFR (test code = eGFR) 92 [facility]2018-11-13 03:57:00 Test Item Value Reference Range Interpretation Comments CO2 (test code = CO2) 25 24-32 [facility]2018-11-13 03:57:00 Test Item Value Reference Range Interpretation Comments Chloride Lvl (test code = Chloride Lvl) 98 95-109 [facility]2018-11-13 03:57:00 Test Item Value Reference Range Interpretation Comments Sodium Lvl (test code = Sodium Lvl) 133 135-145 [facility]2018-11-13 03:57:00 Test Item Value Reference Range Interpretation Comments Potassium Lvl (test code = Potassium 3.8 3.5-5.1 Lvl) [facility]2018-11-13 03:57:00 Test Item Value Reference Range Interpretation Comments AGAP (test code = AGAP) 13.8 10.0-20.0 [facility]2018-11-13 03:57:00 Test Item Value Reference Range Interpretation Comments Calcium Lvl (test code = Calcium Lvl) 7.5 8.5-10.5 [facility]2018-11-13 03:57:00 Test Item Value Reference Range Interpretation Comments Creatinine Lvl (test code = Creatinine 0.74 0.50-1.40 Lvl) [facility]2018-11-13 03:57:00 Test Item Value Reference Range Interpretation Comments Glucose Lvl (test code = Glucose Lvl) 203 70-99 [place] 520358-11-13 03:57:00 Test Item Value Reference Range Interpretation Comments BUN (test code = BUN) 12 7-22 [facility]2018-11-13 03:57:00 Test Item Value Reference Range Interpretation Comments U Osmolality (test code = U Osmolality) 454 300-800 [facility]2018-11-13 03:57:00 Test Item Value Reference Range Interpretation Comments Osmolality (test code = Osmolality) 274 280-300 [facility]2018-11-13 03:57:00 Test Item Value Reference Range Interpretation Comments eGFR (test code = eGFR) 92 [facility]2018-11-13 03:57:00 Test Item Value Reference Range Interpretation Comments CO2 (test code = CO2) 25 24-32 [facility]2018-11-13 03:57:00 Test Item Value Reference Range Interpretation Comments Chloride Lvl (test code = Chloride Lvl) 98 95-109 [facility]2018-11-13 03:57:00 Test Item Value Reference Range Interpretation Comments Sodium Lvl (test code = Sodium Lvl) 133 135-145 [facility]2018-11-13 03:57:00 Test Item Value Reference Range Interpretation Comments Potassium Lvl (test code = Potassium 3.8 3.5-5.1 Lvl) [facility]2018-11-13 03:57:00 Test Item Value Reference Range Interpretation Comments AGAP (test code = AGAP) 13.8 10.0-20.0 [place] 520358-11-13 03:57:00 Test Item Value Reference Range Interpretation Comments Calcium Lvl (test code = Calcium Lvl) 7.5 8.5-10.5 [place] 520358-11-13 03:57:00 Test Item Value Reference Range Interpretation Comments Creatinine Lvl (test code = Creatinine 0.74 0.50-1.40 Lvl) [facility]2018-11-13 03:57:00 Test Item Value Reference Range Interpretation Comments Glucose Lvl (test code = Glucose Lvl) 203 70-99 [facility] CEHPP1274-00-06 03:57:00 Test Item Value Reference Range Interpretation Comments BUN (test code = BUN) 12 7-22 [facility] SETW9816-23-68 03:57:00 Test Item Value Reference Range Interpretation Comments U Osmolality (test code = U Osmolality) 454 300-800 [facility] CenterZwirlavPPWOBLJDTI5148-24-59 03:52:00 Test Item Value Reference Range Interpretation Comments Hgb (test code = Hgb) 9.3 14.0-18.0 [facility] CenterDezvxsiONPALRBUAU7628-24-99 03:52:00 Test Item Value Reference Range Interpretation Comments RBC (test code = RBC) 2.80 4.70-6.10 [facility] CenterLplcurhYMWBRRQEII9210-24-06 03:52:00 Test Item Value Reference Range Interpretation Comments WBC (test code = WBC) 10.4 3.7-10.4 [facility] CenterXjszkfiYDYRGFUPLI5741-60-58 03:52:00 Test Item Value Reference Range Interpretation Comments MCV (test code = MCV) 92.4 80.0-94.0 [facility] CenterHjtngjqXHENBPAUKL0155-80-40 03:52:00 Test Item Value Reference Range Interpretation Comments Hct (test code = Hct) 25.9 42.0-54.0 [facility] CenterBwvutoyAKOWKPPZPM9656-41-40 03:52:00 Test Item Value Reference Range Interpretation Comments RDW (test code = RDW) 13.7 11.5-14.5 [facility] CenterPbwguxvOPOAOXUBRG1846-69-51 03:52:00 Test Item Value Reference Range Interpretation Comments MCHC (test code = MCHC) 35.8 32.0-36.0 [facility] CenterSbsjshgFPPELNETGU9200-81-78 03:52:00 Test Item Value Reference Range Interpretation Comments MPV (test code = MPV) 8.4 7.4-10.4 [facility] CenterEsponlkGWPTBICMVP7304-84-12 03:52:00 Test Item Value Reference Range Interpretation Comments MCH (test code = MCH) 33.1 pg 27.0-31.0 [facility] CenterFghfzoqOREYEDTOXH5975-14-06 03:52:00 Test Item Value Reference Range Interpretation Comments Platelet (test code = Platelet) 113 133-450 [facility]UilzozaDBSTNXNPMR7145-91-31 03:52:00 Test Item Value Reference Range Interpretation Comments Monocytes # (test code 0.8 See_Comment [Aut omated message] The = Monocytes #) system which generated this result tra nsmitted reference range : <=0.8. The reference r ryan was not used to int erpret this result as normal/abnormal . [facility]ervilleYtonsyxDWHPNTEVXK6751-53-21 03:52:00 Test Item Value Reference Range Interpretation Comments Lymphocytes # (test code = Lymphocytes 1.2 1.0-5.5 #) [facility]BtnpntfQFQTGGFXQJ7508-81-79 03:52:00 Test Item Value Reference Range Interpretation Comments Eosinophils # (test code 0.1 See_Comment [A utomated message] The = Eosinophils #) system whic h generated this result tra nsmitted reference range : <=0.5. The reference r ryan was not used to int erpret this result as normal/abnormal . [facility]ervilleAbotlydZGPNVRCBZL2710-48-01 03:52:00 Test Item Value Reference Range Interpretation Comments Monocytes (test code = Monocytes) 7.7 2.0-12.0 [facility] [place]ervilleYyempocHJGGGELVNP0557-10-33 03:52:00 Test Item Value Reference Range Interpretation Comments Segs (test code = Segs) 79.3 45.0-75.0 [facility]ervilleJlpjgusPZNIRJNYZR4877-93-37 03:52:00 Test Item Value Reference Range Interpretation Comments Lymphocytes (test code = Lymphocytes) 11.4 20.0-40.0 [facility]ervilleBlwbkpbKWJZIJUGDV1921-50-79 03:52:00 Test Item Value Reference Range Interpretation Comments Eosinophils (test code = 1.1 See_Comment [A utomated message] The Eosinophils) system which ge nerated this result tra nsmitted reference range : <=4.0. The reference r ryan was not used to int erpret this result as normal/abnormal . [facility]ervilleKtgwwelFBVQBUVCRT0137-50-26 03:52:00 Test Item Value Reference Range Interpretation Comments Basophils (test code = 0.5 See_Comment [Aut omated message] The Basophils) system which ge nerated this result tra nsmitted reference range : <=1.0. The reference r ryan was not used to int erpret this result as normal/abnormal . [facility]ervilleOqsxqygLILMQBBMDJ6045-08-57 03:52:00 Test Item Value Reference Range Interpretation Comments Neutrophils # (test code = Neutrophils 8.3 1.5-8.1 #) [facility]ervilleSytuzwdHKXSLTFTXH1873-30-56 03:52:00 Test Item Value Reference Range Interpretation Comments Hgb (test code = Hgb) 9.3 14.0-18.0 [facility]ervilleWqfuobqGCQULOWLBZ2171-67-53 03:52:00 Test Item Value Reference Range Interpretation Comments RBC (test code = RBC) 2.80 4.70-6.10 [facility] [place]ervilleDafmpqfKXAPDIQPSM6519-27-63 03:52:00 Test Item Value Reference Range Interpretation Comments WBC (test code = WBC) 10.4 3.7-10.4 [facility]ervilleZjvlssvZPOPQDTYOM4846-51-14 03:52:00 Test Item Value Reference Range Interpretation Comments MCV (test code = MCV) 92.4 80.0-94.0 [facility] [place]ervilleUrprdfoTGNNCFVXZN3617-47-71 03:52:00 Test Item Value Reference Range Interpretation Comments Hct (test code = Hct) 25.9 42.0-54.0 [facility]ervilleUrmkvjaVIWNDYQERB3768-62-39 03:52:00 Test Item Value Reference Range Interpretation Comments RDW (test code = RDW) 13.7 11.5-14.5 [facility]ervilleOrymqltQTLRVBIUZT2895-95-64 03:52:00 Test Item Value Reference Range Interpretation Comments MCHC (test code = MCHC) 35.8 32.0-36.0 [facility] [place]ervilleSajzxiiURDXQQIXTW2077-91-47 03:52:00 Test Item Value Reference Range Interpretation Comments MPV (test code = MPV) 8.4 7.4-10.4 [facility] [place]ervilleYdjfdwpPVLUPUENSR7311-65-59 03:52:00 Test Item Value Reference Range Interpretation Comments MCH (test code = MCH) 33.1 pg 27.0-31.0 [facility]ervilleRblchueWXEYREPAZQ4221-14-89 03:52:00 Test Item Value Reference Range Interpretation Comments Platelet (test code = Platelet) 113 133-450 [facility] [place]ervilleEqbrnmnZFWYIVTJFW6399-87-04 03:52:00 Test Item Value Reference Range Interpretation Comments Monocytes # (test code 0.8 See_Comment [Aut omated message] The = Monocytes #) system which generated this result tra nsmitted reference range : <=0.8. The reference r ryan was not used to int erpret this result as normal/abnormal . [facility]ervilleTqbrxgaMCHEEIECJS7535-40-94 03:52:00 Test Item Value Reference Range Interpretation Comments Lymphocytes # (test code = Lymphocytes 1.2 1.0-5.5 #) [facility]ervilleHvgewotRIBWLRRAMN8548-65-25 03:52:00 Test Item Value Reference Range Interpretation Comments Eosinophils # (test code 0.1 See_Comment [A utomated message] The = Eosinophils #) system wh h generated this result tra nsmitted reference range : <=0.5. The reference r ryan was not used to int erpret this result as normal/abnormal . [facility]ervilleUrqwrlxEHKXXBDPTU0195-47-94 03:52:00 Test Item Value Reference Range Interpretation Comments Monocytes (test code = Monocytes) 7.7 2.0-12.0 [facility]ervilleMctqcwdRRKSDZAODH5383-84-92 03:52:00 Test Item Value Reference Range Interpretation Comments Segs (test code = Segs) 79.3 45.0-75.0 [facility]ervilleRshhgnlNMWWXKZTZL8970-74-79 03:52:00 Test Item Value Reference Range Interpretation Comments Lymphocytes (test code = Lymphocytes) 11.4 20.0-40.0 [facility]ervilleXqkgqteZGMNZPXNPS8561-93-55 03:52:00 Test Item Value Reference Range Interpretation Comments Eosinophils (test code = 1.1 See_Comment [A utomated message] The Eosinophils) system which ge nerated this result tra nsmitted reference range : <=4.0. The reference r ryan was not used to int erpret this result as normal/abnormal . [facility]ervilleQntlqvrWAVPMBHTBH1722-73-52 03:52:00 Test Item Value Reference Range Interpretation Comments Basophils (test code = 0.5 See_Comment [Aut omated message] The Basophils) system which ge nerated this result tra nsmitted reference range : <=1.0. The reference r ryan was not used to int erpret this result as normal/abnormal . [facility]ervilleUqnkvnnQVVCEGWZQI2743-48-34 03:52:00 Test Item Value Reference Range Interpretation Comments Neutrophils # (test code = Neutrophils 8.3 1.5-8.1 #) [facility]ervilleUeqshweQGGXHUCFCG9675-88-45 03:52:00 Test Item Value Reference Range Interpretation Comments Hgb (test code = Hgb) 9.3 14.0-18.0 [facility]ervilleLrlqlhwJSHUPDUEDR4892-12-03 03:52:00 Test Item Value Reference Range Interpretation Comments RBC (test code = RBC) 2.80 4.70-6.10 [facility]ervilleJamqfnsZBWRQZFDSX6557-76-41 03:52:00 Test Item Value Reference Range Interpretation Comments WBC (test code = WBC) 10.4 3.7-10.4 [facility] [place]ervilleLkulyidWQYCOPCCYC3911-20-62 03:52:00 Test Item Value Reference Range Interpretation Comments MCV (test code = MCV) 92.4 80.0-94.0 [facility]ervilleHvhfqldCZSWLBLBIV7399-13-32 03:52:00 Test Item Value Reference Range Interpretation Comments Hct (test code = Hct) 25.9 42.0-54.0 [facility] [place]ervilleQreilowLJAANHTBRF2997-60-61 03:52:00 Test Item Value Reference Range Interpretation Comments RDW (test code = RDW) 13.7 11.5-14.5 [facility] [place]ervilleXlifxtcWYIHBYGPJR4525-74-86 03:52:00 Test Item Value Reference Range Interpretation Comments MCHC (test code = MCHC) 35.8 32.0-36.0 [facility] [place]ervilleOxskggqBFHHAYBRGH3814-19-18 03:52:00 Test Item Value Reference Range Interpretation Comments MPV (test code = MPV) 8.4 7.4-10.4 [facility]ervilleUqjecimPQWRRKQNLM8179-58-74 03:52:00 Test Item Value Reference Range Interpretation Comments MCH (test code = MCH) 33.1 pg 27.0-31.0 [facility] [place]ervilleMmyelhpFQYTNYGYVK1220-85-40 03:52:00 Test Item Value Reference Range Interpretation Comments Platelet (test code = Platelet) 113 133-450 [facility] [place]ervilleZygohxcFWBJYWDAUX1949-47-04 03:52:00 Test Item Value Reference Range Interpretation Comments Monocytes # (test code 0.8 See_Comment [Aut omated message] The = Monocytes #) system which generated this result tra nsmitted reference range : <=0.8. The reference r ryan was not used to int erpret this result as normal/abnormal . [facility] [place]ervilleXhrfryqYIKAYQSGFT0845-26-27 03:52:00 Test Item Value Reference Range Interpretation Comments Lymphocytes # (test code = Lymphocytes 1.2 1.0-5.5 #) [facility] [place]ervillePlffutwGKYGWUBBBN7315-72-48 03:52:00 Test Item Value Reference Range Interpretation Comments Eosinophils # (test code 0.1 See_Comment [A utomated message] The = Eosinophils #) system whic h generated this result tra nsmitted reference range : <=0.5. The reference r ryan was not used to int erpret this result as normal/abnormal . [facility]ervilleVwrlbrtXZCZUVAKTI1579-61-63 03:52:00 Test Item Value Reference Range Interpretation Comments Monocytes (test code = Monocytes) 7.7 2.0-12.0 [facility]ervilleBvtqtxdWEYKUUNMBH7138-28-04 03:52:00 Test Item Value Reference Range Interpretation Comments Segs (test code = Segs) 79.3 45.0-75.0 [facility] [place]ervilleUohnarrZZTGWXCGLS8894-72-66 03:52:00 Test Item Value Reference Range Interpretation Comments Lymphocytes (test code = Lymphocytes) 11.4 20.0-40.0 [facility]ervilleTenzpweUMCFNEGNZR4445-05-76 03:52:00 Test Item Value Reference Range Interpretation Comments Eosinophils (test code = 1.1 See_Comment [A utomated message] The Eosinophils) system which ge nerated this result tra nsmitted reference range : <=4.0. The reference r ryan was not used to int erpret this result as normal/abnormal . [facility]ervilleJlsdtdhLWPQOPYTEG6119-72-94 03:52:00 Test Item Value Reference Range Interpretation Comments Basophils (test code = 0.5 See_Comment [Aut omated message] The Basophils) system which ge nerated this result tra nsmitted reference range : <=1.0. The reference r ryan was not used to int erpret this result as normal/abnormal . [facility]ervilleGlbkyjrZTNXRMFNKU6711-08-56 03:52:00 Test Item Value Reference Range Interpretation Comments Neutrophils # (test code = Neutrophils 8.3 1.5-8.1 #) [facility]ervilleQmzyhtmLKURQCHEFA7462-56-16 03:52:00 Test Item Value Reference Range Interpretation Comments Hgb (test code = Hgb) 9.3 14.0-18.0 [facility]ervilleQbjlqekXUPSYAXQUX5788-57-74 03:52:00 Test Item Value Reference Range Interpretation Comments RBC (test code = RBC) 2.80 4.70-6.10 [facility]ervilleFyzgomdTBKPFGTQGY2067-61-94 03:52:00 Test Item Value Reference Range Interpretation Comments WBC (test code = WBC) 10.4 3.7-10.4 [facility]ervilleQhlspmiMPVDBJGJQS1892-55-97 03:52:00 Test Item Value Reference Range Interpretation Comments MCV (test code = MCV) 92.4 80.0-94.0 [facility]ervilleZpahrfqFJTSSLGQFJ3546-41-41 03:52:00 Test Item Value Reference Range Interpretation Comments Hct (test code = Hct) 25.9 42.0-54.0 [facility]ervilleQahjoaaETWJDGFFRK4159-26-70 03:52:00 Test Item Value Reference Range Interpretation Comments RDW (test code = RDW) 13.7 11.5-14.5 [facility]ervilleDykkdjgMXAFFRWBQQ9806-89-51 03:52:00 Test Item Value Reference Range Interpretation Comments MCHC (test code = MCHC) 35.8 32.0-36.0 [facility]ervilleBvuhqdtOHTHZDQIUY9136-29-09 03:52:00 Test Item Value Reference Range Interpretation Comments MPV (test code = MPV) 8.4 7.4-10.4 [facility]ervilleEstmfxhLBMSTCTCUT3581-85-44 03:52:00 Test Item Value Reference Range Interpretation Comments MCH (test code = MCH) 33.1 pg 27.0-31.0 [facility]ervilleEupuvrgIWCGBXFEWX4413-63-71 03:52:00 Test Item Value Reference Range Interpretation Comments Platelet (test code = Platelet) 113 133-450 [facility]ervilleGgrlduhEQRWGQCDHG6008-49-75 03:52:00 Test Item Value Reference Range Interpretation Comments Monocytes # (test code 0.8 See_Comment [Aut omated message] The = Monocytes #) system which generated this result tra nsmitted reference range : <=0.8. The reference r ryan was not used to int erpret this result as normal/abnormal . [facility]ervilleCtkcgtqJVACYANYGW3757-75-82 03:52:00 Test Item Value Reference Range Interpretation Comments Lymphocytes # (test code = Lymphocytes 1.2 1.0-5.5 #) [facility]ervilleIbemncsALEUOLECPW5831-27-32 03:52:00 Test Item Value Reference Range Interpretation Comments Eosinophils # (test code 0.1 See_Comment [A utomated message] The = Eosinophils #) system whic h generated this result tra nsmitted reference range : <=0.5. The reference r ryan was not used to int erpret this result as normal/abnormal . [facility]ervilleZaoszqjFSLSXWGCXX9638-33-52 03:52:00 Test Item Value Reference Range Interpretation Comments Monocytes (test code = Monocytes) 7.7 2.0-12.0 [facility]ervilleYlyfalgVGLWZRJNKP3081-81-13 03:52:00 Test Item Value Reference Range Interpretation Comments Segs (test code = Segs) 79.3 45.0-75.0 [facility]ervilleMnnicyvNNUOKDPZEM3566-39-49 03:52:00 Test Item Value Reference Range Interpretation Comments Lymphocytes (test code = Lymphocytes) 11.4 20.0-40.0 [facility]ervilleNmrkbfoJURVCGFHMA7214-66-78 03:52:00 Test Item Value Reference Range Interpretation Comments Eosinophils (test code = 1.1 See_Comment [A utomated message] The Eosinophils) system which ge nerated this result tra nsmitted reference range : <=4.0. The reference r ryan was not used to int erpret this result as normal/abnormal . [facility]ervilleVzzvoxkZPSOAXQBTM7470-46-99 03:52:00 Test Item Value Reference Range Interpretation Comments Basophils (test code = 0.5 See_Comment [Aut omated message] The Basophils) system which ge nerated this result tra nsmitted reference range : <=1.0. The reference r ryan was not used to int erpret this result as normal/abnormal . [facility]ervilleYpazwuhEVZOQRDHCI2661-04-62 03:52:00 Test Item Value Reference Range Interpretation Comments Neutrophils # (test code = Neutrophils 8.3 1.5-8.1 #) [facility]ervilleNgjcfooCYKYXPVEEM5593-86-47 03:52:00 Test Item Value Reference Range Interpretation Comments Hgb (test code = Hgb) 9.3 14.0-18.0 [place] [address]-11-13 03:52:00 Test Item Value Reference Range Interpretation Comments RBC (test code = RBC) 2.80 4.70-6.10 [facility]ervilleSxydueuONFBDKHYUI0810-25-40 03:52:00 Test Item Value Reference Range Interpretation Comments WBC (test code = WBC) 10.4 3.7-10.4 [place] [address]-11-13 03:52:00 Test Item Value Reference Range Interpretation Comments MCV (test code = MCV) 92.4 80.0-94.0 [facility] [place]ervilleXwlopsvQKUHOGAPKL0667-52-24 03:52:00 Test Item Value Reference Range Interpretation Comments Hct (test code = Hct) 25.9 42.0-54.0 [facility]ervilleCqyfboiWTDIMEEEDL8086-60-45 03:52:00 Test Item Value Reference Range Interpretation Comments RDW (test code = RDW) 13.7 11.5-14.5 [facility] [place]ervilleSmwhfycHFHORECZPY2899-13-98 03:52:00 Test Item Value Reference Range Interpretation Comments MCHC (test code = MCHC) 35.8 32.0-36.0 [facility] [place]ervilleCsbftvdBTGESBZYVS7218-54-69 03:52:00 Test Item Value Reference Range Interpretation Comments MPV (test code = MPV) 8.4 7.4-10.4 [facility] [place]ervilleVrskhxxNPVSBILJDV3891-11-75 03:52:00 Test Item Value Reference Range Interpretation Comments MCH (test code = MCH) 33.1 pg 27.0-31.0 [facility]ervilleUtkypsgOHREKFKKOQ3890-10-59 03:52:00 Test Item Value Reference Range Interpretation Comments Platelet (test code = Platelet) 113 133-450 [facility]ervilleOekyclpVPKZNEUNQW8353-05-78 03:52:00 Test Item Value Reference Range Interpretation Comments Monocytes # (test code 0.8 See_Comment [Aut omated message] The = Monocytes #) system which generated this result tra nsmitted reference range : <=0.8. The reference r ryan was not used to int erpret this result as normal/abnormal . [facility]ervilleDmporflXMOIVRJQEB3297-37-48 03:52:00 Test Item Value Reference Range Interpretation Comments Lymphocytes # (test code = Lymphocytes 1.2 1.0-5.5 #) [facility]ervilleTzvepoyKKVPJBGOFD5418-15-08 03:52:00 Test Item Value Reference Range Interpretation Comments Eosinophils # (test code 0.1 See_Comment [A utomated message] The = Eosinophils #) system whic h generated this result tra nsmitted reference range : <=0.5. The reference r ryan was not used to int erpret this result as normal/abnormal . [facility]ervilleVyheuwxOLOBZOLECT1563-65-01 03:52:00 Test Item Value Reference Range Interpretation Comments Monocytes (test code = Monocytes) 7.7 2.0-12.0 [place] [address]-11-13 03:52:00 Test Item Value Reference Range Interpretation Comments Segs (test code = Segs) 79.3 45.0-75.0 [facility]ervilleNvkzzmcBTLWNVJJYD6475-51-97 03:52:00 Test Item Value Reference Range Interpretation Comments Lymphocytes (test code = Lymphocytes) 11.4 20.0-40.0 [facility]ervilleJukqwsxYBZMOXQNTD0779-25-81 03:52:00 Test Item Value Reference Range Interpretation Comments Eosinophils (test code = 1.1 See_Comment [A utomated message] The Eosinophils) system which ge nerated this result tra nsmitted reference range : <=4.0. The reference r ryan was not used to int erpret this result as normal/abnormal . [facility]ervilleNzraaxbFHXRBZNZDP1936-05-05 03:52:00 Test Item Value Reference Range Interpretation Comments Basophils (test code = 0.5 See_Comment [Aut omated message] The Basophils) system which ge nerated this result tra nsmitted reference range : <=1.0. The reference r ryan was not used to int erpret this result as normal/abnormal . [facility] [place]ervilleSiptlvbNDTSVNFOOF0624-23-32 03:52:00 Test Item Value Reference Range Interpretation Comments Neutrophils # (test code = Neutrophils 8.3 1.5-8.1 #) [facility]ervilleFregbmwMOPHXSHNLX8688-60-83 03:52:00 Test Item Value Reference Range Interpretation Comments Hgb (test code = Hgb) 9.3 14.0-18.0 [facility]ervilleSsnerpeFJDGLLWLOW2966-37-69 03:52:00 Test Item Value Reference Range Interpretation Comments RBC (test code = RBC) 2.80 4.70-6.10 [facility]ervilleUdgrqhpBMTPZKYPBU4372-69-65 03:52:00 Test Item Value Reference Range Interpretation Comments WBC (test code = WBC) 10.4 3.7-10.4 [facility] [place]ervilleOcireiaWEALBUTPQX8828-70-81 03:52:00 Test Item Value Reference Range Interpretation Comments MCV (test code = MCV) 92.4 80.0-94.0 [place] 875718-11-13 03:52:00 Test Item Value Reference Range Interpretation Comments Hct (test code = Hct) 25.9 42.0-54.0 [facility] [place]ervilleQvrynrcVOVRXYHQBI8895-41-45 03:52:00 Test Item Value Reference Range Interpretation Comments RDW (test code = RDW) 13.7 11.5-14.5 [facility] [place]ervilleXchdmsfRNTXFTQDZA0409-58-66 03:52:00 Test Item Value Reference Range Interpretation Comments MCHC (test code = MCHC) 35.8 32.0-36.0 [facility] [place]ervilleEpaxgoxIIRXLGZXTA7376-95-72 03:52:00 Test Item Value Reference Range Interpretation Comments MPV (test code = MPV) 8.4 7.4-10.4 [facility]ervilleGzhlxceMPRNBBNUPM4371-04-00 03:52:00 Test Item Value Reference Range Interpretation Comments MCH (test code = MCH) 33.1 pg 27.0-31.0 [facility] [place]ervilleYbonwbdOINKLZGDDX1792-72-24 03:52:00 Test Item Value Reference Range Interpretation Comments Platelet (test code = Platelet) 113 133-450 [facility] [place]ervilleKhgkafnYDAEJDIEZP5794-44-64 03:52:00 Test Item Value Reference Range Interpretation Comments Monocytes # (test code 0.8 See_Comment [Aut omated message] The = Monocytes #) system which generated this result tra nsmitted reference range : <=0.8. The reference r ryan was not used to int erpret this result as normal/abnormal . [facility]ervilleLyjcgsrVVCIEVPOQU1884-33-99 03:52:00 Test Item Value Reference Range Interpretation Comments Lymphocytes # (test code = Lymphocytes 1.2 1.0-5.5 #) [facility]QvfljmmXMRRDEPPYA9929-96-08 03:52:00 Test Item Value Reference Range Interpretation Comments Eosinophils # (test code 0.1 See_Comment [A utomated message] The = Eosinophils #) system whic h generated this result tra nsmitted reference range : <=0.5. The reference r ryan was not used to int erpret this result as normal/abnormal . [facility]ervilleBoeryagWHOSGYWXBI5939-03-57 03:52:00 Test Item Value Reference Range Interpretation Comments Monocytes (test code = Monocytes) 7.7 2.0-12.0 [facility] [place]ervilleNyeyaarXUVFZLJPOB1682-55-54 03:52:00 Test Item Value Reference Range Interpretation Comments Segs (test code = Segs) 79.3 45.0-75.0 [facility]ervilleNfrlgapYWGUBZYSZM5079-52-26 03:52:00 Test Item Value Reference Range Interpretation Comments Lymphocytes (test code = Lymphocytes) 11.4 20.0-40.0 [facility]ervilleOoxjqxbYBJNZZSRGE0234-41-31 03:52:00 Test Item Value Reference Range Interpretation Comments Eosinophils (test code = 1.1 See_Comment [A utomated message] The Eosinophils) system which ge nerated this result tra nsmitted reference range : <=4.0. The reference r ryan was not used to int erpret this result as normal/abnormal . [facility] [place]ervilleTxmilmqHIDBMPBAWD5321-60-62 03:52:00 Test Item Value Reference Range Interpretation Comments Basophils (test code = 0.5 See_Comment [Aut omated message] The Basophils) system which ge nerated this result tra nsmitted reference range : <=1.0. The reference r ryan was not used to int erpret this result as normal/abnormal . [facility]ervilleUvialurECMAMQNZIG5962-70-67 03:52:00 Test Item Value Reference Range Interpretation Comments Neutrophils # (test code = Neutrophils 8.3 1.5-8.1 #) [facility]ervilleViadtoyEKUJWNWRKF2530-04-06 03:52:00 Test Item Value Reference Range Interpretation Comments Hgb (test code = Hgb) 9.3 14.0-18.0 [facility]ervilleIgejgghSMZEMJUKGM5072-82-64 03:52:00 Test Item Value Reference Range Interpretation Comments RBC (test code = RBC) 2.80 4.70-6.10 [facility] [place]IdcvvkoTZKCTDNXHQ6891-43-67 03:52:00 Test Item Value Reference Range Interpretation Comments WBC (test code = WBC) 10.4 3.7-10.4 [facility]ervilleAlvoztmKBKEDCQJXN3479-60-85 03:52:00 Test Item Value Reference Range Interpretation Comments MCV (test code = MCV) 92.4 80.0-94.0 [facility]ervilleJhpantgJASEMWFXFC6358-81-57 03:52:00 Test Item Value Reference Range Interpretation Comments Hct (test code = Hct) 25.9 42.0-54.0 [facility]ervilleHeqjqmlRMPKTTAZRE0129-80-71 03:52:00 Test Item Value Reference Range Interpretation Comments RDW (test code = RDW) 13.7 11.5-14.5 [facility]ervilleShgpbbpDGSUFZDLKU0305-09-73 03:52:00 Test Item Value Reference Range Interpretation Comments MCHC (test code = MCHC) 35.8 32.0-36.0 [place] [address]-11-13 03:52:00 Test Item Value Reference Range Interpretation Comments MPV (test code = MPV) 8.4 7.4-10.4 [facility]ervilleShzetszRBFYXQBHBY5621-63-11 03:52:00 Test Item Value Reference Range Interpretation Comments MCH (test code = MCH) 33.1 pg 27.0-31.0 [facility]ervilleAvzwcqmUSJHONKDWK5901-90-50 03:52:00 Test Item Value Reference Range Interpretation Comments Platelet (test code = Platelet) 113 133-450 [facility]ervilleGjpetwdZSFEXEUJER6668-90-29 03:52:00 Test Item Value Reference Range Interpretation Comments Monocytes # (test code 0.8 See_Comment [Aut omated message] The = Monocytes #) system which generated this result tra nsmitted reference range : <=0.8. The reference r ryan was not used to int erpret this result as normal/abnormal . [facility]ervilleFnibzsiWBLPVBMLNK7659-41-19 03:52:00 Test Item Value Reference Range Interpretation Comments Lymphocytes # (test code = Lymphocytes 1.2 1.0-5.5 #) [facility]ervillePdcqmpqBOMNIFFUKR5028-19-96 03:52:00 Test Item Value Reference Range Interpretation Comments Eosinophils # (test code 0.1 See_Comment [A utomated message] The = Eosinophils #) system whic h generated this result tra nsmitted reference range : <=0.5. The reference r ryan was not used to int erpret this result as normal/abnormal . [facility]ervilleCjdwoiiODUUKVTNGE5593-08-69 03:52:00 Test Item Value Reference Range Interpretation Comments Monocytes (test code = Monocytes) 7.7 2.0-12.0 [facility]ervilleEnhqldnGZWTOWOHHZ7634-89-90 03:52:00 Test Item Value Reference Range Interpretation Comments Segs (test code = Segs) 79.3 45.0-75.0 [facility]ervilleTnozcvlNCUKXKRSCO4879-75-91 03:52:00 Test Item Value Reference Range Interpretation Comments Lymphocytes (test code = Lymphocytes) 11.4 20.0-40.0 [facility]ervilleAoswgzqEHGSMHSXQV6636-22-73 03:52:00 Test Item Value Reference Range Interpretation Comments Eosinophils (test code = 1.1 See_Comment [A utomated message] The Eosinophils) system which ge nerated this result tra nsmitted reference range : <=4.0. The reference r ryan was not used to int erpret this result as normal/abnormal . [facility]ervilleAzblohpLQLOVCKOTZ6389-64-11 03:52:00 Test Item Value Reference Range Interpretation Comments Basophils (test code = 0.5 See_Comment [Aut omated message] The Basophils) system which ge nerated this result tra nsmitted reference range : <=1.0. The reference r ryan was not used to int erpret this result as normal/abnormal . [facility]ervilleEafpinbYYUSEIIENB2424-64-37 03:52:00 Test Item Value Reference Range Interpretation Comments Neutrophils # (test code = Neutrophils 8.3 1.5-8.1 #) [facility] HermannTIGECYCLINE:SUSC:PT:ISOLATE:ORDQN:[id number] 03:16:00 Test Item Value Reference Range Interpretation Comments Culture: Urine (test >100,000 CFU/mL code = Culture: Klebsiella pneumoniae ssp Urine) pneumoniae 10,000 - 50,000 CFU/mL Yeast [facility] HermannTIGECYCLINE:SUSC:PT:ISOLATE:ORDQN:[id number] 03:16:00 Test Item Value Reference Range Interpretation Comments Klebsiella pneumoniae Klebsiella pneumoniae ssp pneumoniae (test ssp pneumoniae code = Klebsiella pneumoniae ssp pneumoniae) [facility] HermannTIGECYCLINE:SUSC:PT:ISOLATE:ORDQN:[id number] 03:16:00 Test Item Value Reference Range Interpretation Comments Culture: Urine (test >100,000 CFU/mL code = Culture: Klebsiella pneumoniae ssp Urine) pneumoniae 10,000 - 50,000 CFU/mL Yeast [facility] HermannTIGECYCLINE:SUSC:PT:ISOLATE:ORDQN:[id number] 03:16:00 Test Item Value Reference Range Interpretation Comments Klebsiella pneumoniae Klebsiella pneumoniae ssp pneumoniae (test ssp pneumoniae code = Klebsiella pneumoniae ssp pneumoniae) [facility] HermannTIGECYCLINE:SUSC:PT:ISOLATE:ORDQN:[id number] 03:16:00 Test Item Value Reference Range Interpretation Comments Culture: Urine (test >100,000 CFU/mL code = Culture: Klebsiella pneumoniae ssp Urine) pneumoniae 10,000 - 50,000 CFU/mL Yeast [facility] HermannTIGECYCLINE:SUSC:PT:ISOLATE:ORDQN:[id number] 03:16:00 Test Item Value Reference Range Interpretation Comments Klebsiella pneumoniae Klebsiella pneumoniae ssp pneumoniae (test ssp pneumoniae code = Klebsiella pneumoniae ssp pneumoniae) [facility]IG[facility]CLINE[facility]SUSC:PT:ISOLATE:ORDQN:[id number] 03:16:00 Test Item Value Reference Range Interpretation Comments Culture: Urine (test >100,000 CFU/mL code = Culture: Klebsiella pneumoniae ssp Urine) pneumoniae 10,000 - 50,000 CFU/mL Yeast [facility]annTIGECYCLINE:SUSC:PT:ISOLATE:ORDQN:[id number] 03:16:00 Test Item Value Reference Range Interpretation Comments Klebsiella pneumoniae Klebsiella pneumoniae ssp pneumoniae (test ssp pneumoniae code = Klebsiella pneumoniae ssp pneumoniae) [facility]annTIGECYCLINE:SUSC:PT:ISOLATE:ORDQN:[id number] 03:16:00 Test Item Value Reference Range Interpretation Comments Culture: Urine (test >100,000 CFU/mL code = Culture: Klebsiella pneumoniae ssp Urine) pneumoniae 10,000 - 50,000 CFU/mL Yeast [facility]annTIGECYCLINE:SUSC:PT:ISOLATE:ORDQN:[id number] 03:16:00 Test Item Value Reference Range Interpretation Comments Klebsiella pneumoniae Klebsiella pneumoniae ssp pneumoniae (test ssp pneumoniae code = Klebsiella pneumoniae ssp pneumoniae) [facility]annTIGECYCLINE:SUSC:PT:ISOLATE:ORDQN:[id number] 03:16:00 Test Item Value Reference Range Interpretation Comments Culture: Urine (test >100,000 CFU/mL code = Culture: Klebsiella pneumoniae ssp Urine) pneumoniae 10,000 - 50,000 CFU/mL Yeast [facility]annTIGECYCLINE:SUSC:PT:ISOLATE:ORDQN:[id number] 03:16:00 Test Item Value Reference Range Interpretation Comments Klebsiella pneumoniae Klebsiella pneumoniae ssp pneumoniae (test ssp pneumoniae code = Klebsiella pneumoniae ssp pneumoniae) [facility]annTIGECYCLINE:SUSC:PT:ISOLATE:ORDQN:[id number] 03:16:00 Test Item Value Reference Range Interpretation Comments Culture: Urine (test >100,000 CFU/mL code = Culture: Klebsiella pneumoniae ssp Urine) pneumoniae 10,000 - 50,000 CFU/mL Yeast [facility]annTIGECYCLINE:SUSC:PT:ISOLATE:ORDQN:[id number] 03:16:00 Test Item Value Reference Range Interpretation Comments Klebsiella pneumoniae Klebsiella pneumoniae ssp pneumoniae (test ssp pneumoniae code = Klebsiella pneumoniae ssp pneumoniae) [facility] AND [id number] 00:32:00 Test Item Value Reference Range Interpretation Comments UA WBC (test code = 41 See_Comment [Automa tino message] The UA WBC) system which ge nerated this result transmit tino reference range : <=5. The reference range was not used to interpr et this result as debra l/abnormal. [facility] AND [id number] 00:32:00 Test Item Value Reference Range Interpretation Comments UA Blood (test code = Small *ABN*(12/30/17 UA Blood) 6:32 PM) [facility] AND [id number] 00:32:00 Test Item Value Reference Range Interpretation Comments UA Bili (test code = Negative *NA*(12/30/17 UA Bili) 6:32 PM) [facility] AND [id number] 00:32:00 Test Item Value Reference Range Interpretation Comments UA Protein (test code = UA Protein) 30 mg/dL [facility] AND [id number] 00:32:00 Test Item Value Reference Range Interpretation Comments UA Turbidity (test code = Clear (12/30/17 6:32 UA Turbidity) PM) [facility] AND [id number] 00:32:00 Test Item Value Reference Range Interpretation Comments UA pH (test code = UA pH) 6.0 1 5.0-8.0 [facility] AND [id number] 00:32:00 Test Item Value Reference Range Interpretation Comments UA Nitrite (test code Positive *ABN*(12/30/17 = UA Nitrite) 6:32 PM) [facility] AND [id number] 00:32:00 Test Item Value Reference Range Interpretation Comments UA Ketones (test code = UA Ketones) 10 mg/dL [facility] AND [id number] 00:32:00 Test Item Value Reference Range Interpretation Comments UA Glucose (test code = UA Glucose) 150 mg/dL [facility] AND [id number] 00:32:00 Test Item Value Reference Range Interpretation Comments UA Color (test code = Yellow *NA*(12/30/17 UA Color) 6:32 PM) [facility] [id number] 00:32:00 Test Item Value Reference Range Interpretation Comments Troponin-I (test code no gt See_Comment [Auto mated message] The = Troponin-I) system which g enerated this result transmit tino reference range : <=0.40. The reference r ryan was not used to interpr et this result as debra l/abnormal. [facility] GetShopAppCARDIAC [id number] 00:32:00 Test Item Value Reference Range Interpretation Comments Troponin-T (test code no gt See_Comment [Auto mated message] The = Troponin-T) system which g enerated this result transmit tino reference range : <=0.100. The reference r ryan was not used to interpr et this result as debra l/abnormal. [facility] GetShopAppCHEM [id number] 00:32:00 Test Item Value Reference Range Interpretation Comments Procalcitonin Lvl (test 0.26 See_Comment [Au tomated message] code = Procalcitonin Lvl) Th e system which generated this result transmitted ref erence range: <=0.10. The reference range was not used to interpr et this result as normal/abnormal . [facility] [id number] 00:32:00 Test Item Value Reference Range Interpretation Comments AGAP (test code = AGAP) 11.6 10.0-20.0 [facility]TlvdlvnBKCUHAXXQHDZ7683-22-10 00:32:00 Test Item Value Reference Range Interpretation Comments Potassium Lvl (test code = Potassium 3.6 3.5-5.1 Lvl) [facility]SgjlngiKPKPHAUGBQYT2463-44-05 00:32:00 Test Item Value Reference Range Interpretation Comments BUN (test code = BUN) 13 7-22 [facility] DerrwzcZPBUGADHTCTD1331-24-30 00:32:00 Test Item Value Reference Range Interpretation Comments Creatinine Lvl (test code = Creatinine 0.78 0.50-1.40 Lvl) [facility]NgmsfawIEOWUWECVPZT0833-71-79 00:32:00 Test Item Value Reference Range Interpretation Comments Sodium Lvl (test code = Sodium Lvl) 132 135-145 [facility]NfhhkkzULFQMTIGTSBC6710-06-13 00:32:00 Test Item Value Reference Range Interpretation Comments Glucose Lvl (test code = Glucose Lvl) 203 70-99 [facility]LbnajnkYHQKORINUYFG4816-98-10 00:32:00 Test Item Value Reference Range Interpretation Comments Calcium Lvl (test code = Calcium Lvl) 7.8 8.5-10.5 [facility] HospitalByrmetxERGFWAXPFYHV1823-45-17 00:32:00 Test Item Value Reference Range Interpretation Comments Chloride Lvl (test code = Chloride Lvl) 99 95-109 [facility] HospitalOimlmfnRRKNBUXZQKVX7343-82-98 00:32:00 Test Item Value Reference Range Interpretation Comments CO2 (test code = CO2) 25 24-32 [facility] HospitalIwqvuixFBMODPHTQDUU7849-41-06 00:32:00 Test Item Value Reference Range Interpretation Comments eGFR (test code = eGFR) 89 [facility]QhaxpjyNRFAZHWDNA4668-73-91 00:32:00 Test Item Value Reference Range Interpretation Comments MCV (test code = MCV) 91.8 80.0-94.0 [facility]ervilleRhsnutjUJJBMQQKYX9706-92-85 00:32:00 Test Item Value Reference Range Interpretation Comments MCHC (test code = MCHC) 35.2 32.0-36.0 [facility]PkcdrfdRZALOFKFZN6998-77-32 00:32:00 Test Item Value Reference Range Interpretation Comments MCH (test code = MCH) 32.3 pg 27.0-31.0 [facility]TvjghcsWSTYOGVWRD2191-26-11 00:32:00 Test Item Value Reference Range Interpretation Comments Platelet (test code = Platelet) 117 133-450 [facility]ervilleUesbxhzRKEYZFVAHV1896-93-77 00:32:00 Test Item Value Reference Range Interpretation Comments RDW (test code = RDW) 14.2 11.5-14.5 [facility]NvvsqvfRPLZQZNZIW9468-09-92 00:32:00 Test Item Value Reference Range Interpretation Comments MPV (test code = MPV) 8.8 7.4-10.4 [facility]ervilleWigtatmQHUAVKBFZX0657-44-91 00:32:00 Test Item Value Reference Range Interpretation Comments Hct (test code = Hct) 27.2 42.0-54.0 [facility]ervilleHkzqhmhFGYKSRISBR3510-70-55 00:32:00 Test Item Value Reference Range Interpretation Comments Hgb (test code = Hgb) 9.6 14.0-18.0 [facility]ervilleNvkrwwwUHIJFTCJCI2875-50-14 00:32:00 Test Item Value Reference Range Interpretation Comments RBC (test code = RBC) 2.97 4.70-6.10 [facility]ervilleTxwefomCGKBPUJWCS7657-53-29 00:32:00 Test Item Value Reference Range Interpretation Comments WBC (test code = WBC) 11.0 3.7-10.4 [facility]ervilleQbvmtzfXDBMGNKXPG0772-21-38 00:32:00 Test Item Value Reference Range Interpretation Comments Eosinophils (test code = 1.1 See_Comment [A utomated message] The Eosinophils) system which ge nerated this result tra nsmitted reference range : <=4.0. The reference r ryan was not used to int erpret this result as normal/abnormal . [facility]ervilleIigzobcDZODUKGDOP9328-57-71 00:32:00 Test Item Value Reference Range Interpretation Comments Monocytes # (test code 0.8 See_Comment [Aut omated message] The = Monocytes #) system which generated this result tra nsmitted reference range : <=0.8. The reference r ryan was not used to int erpret this result as normal/abnormal . [facility]ervilleTdzcafjLRZONUBXNN8504-10-46 00:32:00 Test Item Value Reference Range Interpretation Comments Basophils (test code = 0.3 See_Comment [Aut omated message] The Basophils) system which ge nerated this result tra nsmitted reference range : <=1.0. The reference r ryan was not used to int erpret this result as normal/abnormal . [facility]ervillePrlhxyeGBGOEUYGGD8250-36-51 00:32:00 Test Item Value Reference Range Interpretation Comments Neutrophils # (test code = Neutrophils 9.0 1.5-8.1 #) [facility]ervilleTayianjUVWNMNNMFL2251-04-83 00:32:00 Test Item Value Reference Range Interpretation Comments Eosinophils # (test code 0.1 See_Comment [A utomated message] The = Eosinophils #) system whic h generated this result tra nsmitted reference range : <=0.5. The reference r ryan was not used to int erpret this result as normal/abnormal . [facility]ervilleHhkibrfXDBNYHTJUC6307-81-20 00:32:00 Test Item Value Reference Range Interpretation Comments Lymphocytes # (test code = Lymphocytes 1.1 1.0-5.5 #) [facility]ervilleAehjigrJLBKJKBSNA2368-46-06 00:32:00 Test Item Value Reference Range Interpretation Comments Monocytes (test code = Monocytes) 6.9 2.0-12.0 [facility] XczhrsfAMFPGDMHNZ2184-70-43 00:32:00 Test Item Value Reference Range Interpretation Comments Lymphocytes (test code = Lymphocytes) 10.0 20.0-40.0 [facility] SozcpmqNLCGLDOCAJ0467-44-15 00:32:00 Test Item Value Reference Range Interpretation Comments Segs (test code = Segs) 81.7 45.0-75.0 [facility] AND [id number] 00:32:00 Test Item Value Reference Range Interpretation Comments UA Sq Epi (test code = UA Sq Epi) None Seen [facility] AND [id number] 00:32:00 Test Item Value Reference Range Interpretation Comments UA Spec Grav (test >=1.050 *ABN*(12/30/17 code = UA Spec Grav) 6:32 PM) [facility] AND [id number] 00:32:00 Test Item Value Reference Range Interpretation Comments UA Urobilinogen (test code = UA <=1.0 mg/dL 0.1-1.0 Urobilinogen) [facility] AND [id number] 00:32:00 Test Item Value Reference Range Interpretation Comments UA Bacteria (test code = UA Few /HPF Bacteria) [facility] AND [id number] 00:32:00 Test Item Value Reference Range Interpretation Comments UA Dittmer Yeast (test code = UA Occasional /HPF Dittmer Yeast) [facility] AND [id number] 00:32:00 Test Item Value Reference Range Interpretation Comments UA Mucus (test code = UA Mucus) Few /LPF [facility] AND [id number] 00:32:00 Test Item Value Reference Range Interpretation Comments UA Leuk Est (test code Large *ABN*(12/30/17 = UA Leuk Est) 6:32 PM) [facility] [id number] 00:32:00 Test Item Value Reference Range Interpretation Comments UA RBC (test code = 6 See_Comment [Automa tino message] The UA RBC) system which ge nerated this result transmit tino reference range : <=2. The reference range was not used to interpr et this result as debra l/abnormal. [facility] [id number] 00:32:00 Test Item Value Reference Range Interpretation Comments UA WBC (test code = 41 See_Comment [Automa tino message] The UA WBC) system which ge nerated this result transmit tino reference range : <=5. The reference range was not used to interpr et this result as debra l/abnormal. [facility] [id number] 00:32:00 Test Item Value Reference Range Interpretation Comments UA Blood (test code = Small *ABN*(12/30/17 UA Blood) 6:32 PM) [facility] [id number] 00:32:00 Test Item Value Reference Range Interpretation Comments UA Bili (test code = Negative *NA*(12/30/17 UA Bili) 6:32 PM) [facility] [id number] 00:32:00 Test Item Value Reference Range Interpretation Comments UA Protein (test code = UA Protein) 30 mg/dL [facility] [id number] 00:32:00 Test Item Value Reference Range Interpretation Comments UA Turbidity (test code = Clear (12/30/17 6:32 UA Turbidity) PM) [facility] [id number] 00:32:00 Test Item Value Reference Range Interpretation Comments UA pH (test code = UA pH) 6.0 1 5.0-8.0 [facility] [id number] 00:32:00 Test Item Value Reference Range Interpretation Comments UA Nitrite (test code Positive *ABN*(12/30/17 = UA Nitrite) 6:32 PM) [facility] [id number] 00:32:00 Test Item Value Reference Range Interpretation Comments UA Ketones (test code = UA Ketones) 10 mg/dL [facility] [id number] 00:32:00 Test Item Value Reference Range Interpretation Comments UA Glucose (test code = UA Glucose) 150 mg/dL [facility] [id number] 00:32:00 Test Item Value Reference Range Interpretation Comments UA Color (test code = Yellow *NA*(12/30/17 UA Color) 6:32 PM) [facility] [id number] 00:32:00 Test Item Value Reference Range Interpretation Comments Troponin-I (test code no gt See_Comment [Auto mated message] The = Troponin-I) system which g enerated this result transmit tino reference range : <=0.40. The reference r ryan was not used to interpr et this result as debra l/abnormal. [facility] NortheastmaggieCARDIAC [id number] 00:32:00 Test Item Value Reference Range Interpretation Comments Troponin-T (test code no gt See_Comment [Auto mated message] The = Troponin-T) system which g enerated this result transmit tino reference range : <=0.100. The reference r ryan was not used to interpr et this result as debra l/abnormal. [facility] CenterCHEM [id number] 00:32:00 Test Item Value Reference Range Interpretation Comments Procalcitonin Lvl (test 0.26 See_Comment [Au tomated message] code = Procalcitonin Lvl) Th e system which generated this result transmitted ref erence range: <=0.10. The reference range was not used to interpr et this result as normal/abnormal . [facility] NortheastEpyvpvtTJIZFLTIQIHU1371-12-27 00:32:00 Test Item Value Reference Range Interpretation Comments AGAP (test code = AGAP) 11.6 10.0-20.0 [facility] NortheastUvpichbKKFTIKPKDVKW9047-38-13 00:32:00 Test Item Value Reference Range Interpretation Comments Potassium Lvl (test code = Potassium 3.6 3.5-5.1 Lvl) [facility] HospitalMczlylnVBXDYQLZFMWN2108-14-95 00:32:00 Test Item Value Reference Range Interpretation Comments BUN (test code = BUN) 13 7-22 [facility] HospitalEivfshyCGOCKAIWHZHE2465-17-52 00:32:00 Test Item Value Reference Range Interpretation Comments Creatinine Lvl (test code = Creatinine 0.78 0.50-1.40 Lvl) [facility]GfvgzorMSNPBJEAJXUU2936-13-89 00:32:00 Test Item Value Reference Range Interpretation Comments Sodium Lvl (test code = Sodium Lvl) 132 135-145 [facility] HospitalSmbyhppMAZXTPOXZRUM6462-26-09 00:32:00 Test Item Value Reference Range Interpretation Comments Glucose Lvl (test code = Glucose Lvl) 203 70-99 [facility] HospitalHbfolunVQPTAWNEJAFC9550-39-31 00:32:00 Test Item Value Reference Range Interpretation Comments Calcium Lvl (test code = Calcium Lvl) 7.8 8.5-10.5 [facility] HospitalMpbinkdBPAZPRZVNPNJ4455-60-01 00:32:00 Test Item Value Reference Range Interpretation Comments Chloride Lvl (test code = Chloride Lvl) 99 95-109 [facility] HospitalPscflbgVBNFIVCMOVAY2887-24-48 00:32:00 Test Item Value Reference Range Interpretation Comments CO2 (test code = CO2) 25 24-32 [facility] HospitalVliyrowVVNMDHBGOETZ3585-15-27 00:32:00 Test Item Value Reference Range Interpretation Comments eGFR (test code = eGFR) 89 [facility]ervilleWegswshECBOFTAUBT9158-13-65 00:32:00 Test Item Value Reference Range Interpretation Comments MCV (test code = MCV) 91.8 80.0-94.0 [facility]ervilleJvuwpwhLREWOOWCEO4326-60-29 00:32:00 Test Item Value Reference Range Interpretation Comments MCHC (test code = MCHC) 35.2 32.0-36.0 [facility]ervilleAmruykoLUXTODSEWV9595-88-01 00:32:00 Test Item Value Reference Range Interpretation Comments MCH (test code = MCH) 32.3 pg 27.0-31.0 [facility]ervilleNhstdpwRGEQJWEMCF6473-23-73 00:32:00 Test Item Value Reference Range Interpretation Comments Platelet (test code = Platelet) 117 133-450 [facility]ervilleLatuhqhGMXSZBNPNV0695-95-83 00:32:00 Test Item Value Reference Range Interpretation Comments RDW (test code = RDW) 14.2 11.5-14.5 [facility]ervilleGlspkwfLGVAGNUERC2427-16-50 00:32:00 Test Item Value Reference Range Interpretation Comments MPV (test code = MPV) 8.8 7.4-10.4 [facility]ervilleUfynswiMYGORBANEV8453-16-92 00:32:00 Test Item Value Reference Range Interpretation Comments Hct (test code = Hct) 27.2 42.0-54.0 [facility]ervilleTiinbymYQPYWQOFNK7186-13-75 00:32:00 Test Item Value Reference Range Interpretation Comments Hgb (test code = Hgb) 9.6 14.0-18.0 [facility]ervilleWmmkfjlSOIIYZVEPD2659-40-24 00:32:00 Test Item Value Reference Range Interpretation Comments RBC (test code = RBC) 2.97 4.70-6.10 [facility]ervilleJrgavyxXEGEBMDTQZ5091-24-23 00:32:00 Test Item Value Reference Range Interpretation Comments WBC (test code = WBC) 11.0 3.7-10.4 [facility]ervilleTrfnksmIGYDQFLMII6990-98-65 00:32:00 Test Item Value Reference Range Interpretation Comments Eosinophils (test code = 1.1 See_Comment [A utomated message] The Eosinophils) system which ge nerated this result tra nsmitted reference range : <=4.0. The reference r ryan was not used to int erpret this result as normal/abnormal . [facility]ervilleArnuccbIFGFPJYHEI7186-40-80 00:32:00 Test Item Value Reference Range Interpretation Comments Monocytes # (test code 0.8 See_Comment [Aut omated message] The = Monocytes #) system which generated this result tra nsmitted reference range : <=0.8. The reference r ryan was not used to int erpret this result as normal/abnormal . [facility]ervilleCtlqxnzNZFXWRXYLI3335-70-47 00:32:00 Test Item Value Reference Range Interpretation Comments Basophils (test code = 0.3 See_Comment [Aut omated message] The Basophils) system which ge nerated this result tra nsmitted reference range : <=1.0. The reference r ryan was not used to int erpret this result as normal/abnormal . [facility]ervilleDuhfrtqQEJXCHDFNY7841-42-75 00:32:00 Test Item Value Reference Range Interpretation Comments Neutrophils # (test code = Neutrophils 9.0 1.5-8.1 #) [facility]ervilleRlfkgwbDIGVMWRTZR5203-83-59 00:32:00 Test Item Value Reference Range Interpretation Comments Eosinophils # (test code 0.1 See_Comment [A utomated message] The = Eosinophils #) system [facility] h generated this result tra nsmitted reference range : <=0.5. The reference r ryan was not used to int erpret this result as normal/abnormal . [facility]ervilleGjgnaccFZCFGYVDIK0266-36-28 00:32:00 Test Item Value Reference Range Interpretation Comments Lymphocytes # (test code = Lymphocytes 1.1 1.0-5.5 #) [facility]ervilleSjkhrykJMRMAEGTRG5979-08-03 00:32:00 Test Item Value Reference Range Interpretation Comments Monocytes (test code = Monocytes) 6.9 2.0-12.0 [facility]ervilleLklytptAWNXYIBGKH5659-50-78 00:32:00 Test Item Value Reference Range Interpretation Comments Lymphocytes (test code = Lymphocytes) 10.0 20.0-40.0 [facility]jwdlncHTYAGOKZQD0594-21-24 00:32:00 Test Item Value Reference Range Interpretation Comments Segs (test code = Segs) 81.7 45.0-75.0 [facility] [id number] 00:32:00 Test Item Value Reference Range Interpretation Comments UA Sq Epi (test code = UA Sq Epi) None [facility]en [facility] AND [id number] 00:32:00 Test Item Value Reference Range Interpretation Comments UA Spec Grav (test >=1.050 *ABN*(12/30/17 code = UA Spec Grav) 6:32 PM) [facility] [id number] 00:32:00 Test Item Value Reference Range Interpretation Comments UA Urobilinogen (test code = UA <=1.0 mg/dL 0.1-1.0 Urobilinogen) [facility] [id number] 00:32:00 Test Item Value Reference Range Interpretation Comments UA Bacteria (test code = UA Few /HPF Bacteria) [facility] [id number] 00:32:00 Test Item Value Reference Range Interpretation Comments UA Dittmer Yeast (test code = UA Occasional /HPF Dittmer Yeast) [facility] [id number] 00:32:00 Test Item Value Reference Range Interpretation Comments UA Mucus (test code = UA Mucus) Few /LPF [facility] AND [id number] 00:32:00 Test Item Value Reference Range Interpretation Comments UA Leuk Est (test code Large *ABN*(12/30/17 = UA Leuk Est) 6:32 PM) [facility] [id number] 00:32:00 Test Item Value Reference Range Interpretation Comments UA RBC (test code = 6 See_Comment [Automa tino message] The UA RBC) system which ge nerated this result transmit tino reference range : <=2. The reference range was not used to interpr et this result as debra l/abnormal. [facility] [id number] 00:32:00 Test Item Value Reference Range Interpretation Comments UA WBC (test code = 41 See_Comment [Automa tino message] The UA WBC) system which ge nerated this result transmit tino reference range : <=5. The reference range was not used to interpr et this result as debra l/abnormal. [facility] [id number] 00:32:00 Test Item Value Reference Range Interpretation Comments UA Blood (test code = Small *ABN*(12/30/17 UA Blood) 6:32 PM) [facility] [id number] 00:32:00 Test Item Value Reference Range Interpretation Comments UA Bili (test code = Negative *NA*(12/30/17 UA Bili) 6:32 PM) [facility] [id number] 00:32:00 Test Item Value Reference Range Interpretation Comments UA Protein (test code = UA Protein) 30 mg/dL [facility] [id number] 00:32:00 Test Item Value Reference Range Interpretation Comments UA Turbidity (test code = Clear (12/30/17 6:32 UA Turbidity) PM) [facility] AND [id number] 00:32:00 Test Item Value Reference Range Interpretation Comments UA pH (test code = UA pH) 6.0 1 5.0-8.0 [facility] AND [id number] 00:32:00 Test Item Value Reference Range Interpretation Comments UA Nitrite (test code Positive *ABN*(12/30/17 = UA Nitrite) 6:32 PM) [facility] AND [id number] 00:32:00 Test Item Value Reference Range Interpretation Comments UA Ketones (test code = UA Ketones) 10 mg/dL [facility] AND [id number] 00:32:00 Test Item Value Reference Range Interpretation Comments UA Glucose (test code = UA Glucose) 150 mg/dL [facility] AND [id number] 00:32:00 Test Item Value Reference Range Interpretation Comments UA Color (test code = Yellow *NA*(12/30/17 UA Color) 6:32 PM) [facility]CARDIAC ARMSEBJ9957-12-79 00:32:00 Test Item Value Reference Range Interpretation Comments Troponin-I (test code no gt See_Comment [Auto mated message] The = Troponin-I) system which g enerated this result transmit tino reference range : <=0.40. The reference r ryan was not used to interpr et this result as debra l/abnormal. [facility]AC [id number] 00:32:00 Test Item Value Reference Range Interpretation Comments Troponin-T (test code no gt See_Comment [Auto mated message] The = Troponin-T) system which g enerated this result transmit tino reference range : <=0.100. The reference r ryan was not used to interpr et this result as debra l/abnormal. [facility]CHE[facility] [id number] 00:32:00 Test Item Value Reference Range Interpretation Comments Procalcitonin Lvl (test 0.26 See_Comment [Au tomated message] code = Procalcitonin Lvl) Th e system which generated this result transmitted ref erence range: <=0.10. The reference range was not used to interpr et this result as normal/abnormal . [facility] SghqzxjRRMBXIZUTGCQ9865-44-53 00:32:00 Test Item Value Reference Range Interpretation Comments AGAP (test code = AGAP) 11.6 10.0-20.0 [facility] NortheastUvfagueFJKVQLGBRHGZ1360-42-17 00:32:00 Test Item Value Reference Range Interpretation Comments Potassium Lvl (test code = Potassium 3.6 3.5-5.1 Lvl) [facility] NortheastWytieegGNETMNNFHWCS9814-30-25 00:32:00 Test Item Value Reference Range Interpretation Comments BUN (test code = BUN) 13 7-22 [facility] NortheastCscbxbwRYYPYNWDVXJB9716-67-09 00:32:00 Test Item Value Reference Range Interpretation Comments Creatinine Lvl (test code = Creatinine 0.78 0.50-1.40 Lvl) [facility] NortheastMgishtrRAFDPQOUALVT9858-49-79 00:32:00 Test Item Value Reference Range Interpretation Comments Sodium Lvl (test code = Sodium Lvl) 132 135-145 [facility] NortheastQhgoasbVWMJAMBDQNSL8650-44-39 00:32:00 Test Item Value Reference Range Interpretation Comments Glucose Lvl (test code = Glucose Lvl) 203 70-99 [facility] NortheastWgmnlssUGUKIFUNMIJO3044-68-38 00:32:00 Test Item Value Reference Range Interpretation Comments Calcium Lvl (test code = Calcium Lvl) 7.8 8.5-10.5 [facility] NortheastYglcaajYHCQBCGZVVXP4896-01-31 00:32:00 Test Item Value Reference Range Interpretation Comments Chloride Lvl (test code = Chloride Lvl) 99 95-109 [facility] HospitalVuidaiwRLDMREWPJKLP3018-95-54 00:32:00 Test Item Value Reference Range Interpretation Comments CO2 (test code = CO2) 25 24-32 [facility] HospitalLmzoiudGJHDJTMZYCDJ6609-56-40 00:32:00 Test Item Value Reference Range Interpretation Comments eGFR (test code = eGFR) 89 [facility]ervilleXiqktrhIKGXUXJRXR4820-44-99 00:32:00 Test Item Value Reference Range Interpretation Comments MCV (test code = MCV) 91.8 80.0-94.0 [facility]ervilleJiynoooDOWOPNSDVL1780-14-96 00:32:00 Test Item Value Reference Range Interpretation Comments MCHC (test code = MCHC) 35.2 32.0-36.0 [facility]ervilleHicayrmLCATOTPWNP1944 00:32:00 Test Item Value Reference Range Interpretation Comments MCH (test code = MCH) 32.3 pg 27.0-31.0 [facility]ervilleFkbowdoXMEYJPVXJS6146-84-23 00:32:00 Test Item Value Reference Range Interpretation Comments Platelet (test code = Platelet) 117 133-450 [facility]ervilleXcoqcvgKTIFDPDUTO2002-69-80 00:32:00 Test Item Value Reference Range Interpretation Comments RDW (test code = RDW) 14.2 11.5-14.5 [facility]ervilleJbhiqhvWZUKZKKLNC8427-57-14 00:32:00 Test Item Value Reference Range Interpretation Comments MPV (test code = MPV) 8.8 7.4-10.4 [facility]ervilleFdpnxkeAAYLEBJREB9304-07-16 00:32:00 Test Item Value Reference Range Interpretation Comments Hct (test code = Hct) 27.2 42.0-54.0 [facility]ervilleIxanspjJRWILEHJHR2671-00-79 00:32:00 Test Item Value Reference Range Interpretation Comments Hgb (test code = Hgb) 9.6 14.0-18.0 [facility]ervilleKqwqxusDCVKSVESVS8540-17-51 00:32:00 Test Item Value Reference Range Interpretation Comments RBC (test code = RBC) 2.97 4.70-6.10 [facility]ervilleGlpzrdtIQZQVATXQM8043-01-59 00:32:00 Test Item Value Reference Range Interpretation Comments WBC (test code = WBC) 11.0 3.7-10.4 [facility]ervilleUhpmhapESGGMHNOQF6330-92-16 00:32:00 Test Item Value Reference Range Interpretation Comments Eosinophils (test code = 1.1 See_Comment [A utomated message] The Eosinophils) system which ge nerated this result tra nsmitted reference range : <=4.0. The reference r ryan was not used to int erpret this result as normal/abnormal . [facility]ervilleOnyqbrrFQNKVLJLPS1203-89-30 00:32:00 Test Item Value Reference Range Interpretation Comments Monocytes # (test code 0.8 See_Comment [Aut omated message] The = Monocytes #) system which generated this result tra nsmitted reference range : <=0.8. The reference r ryan was not used to int erpret this result as normal/abnormal . [facility]ervilleItkgaoiIWHCLSYLIA2364-57-50 00:32:00 Test Item Value Reference Range Interpretation Comments Basophils (test code = 0.3 See_Comment [Aut omated message] The Basophils) system which ge nerated this result tra nsmitted reference range : <=1.0. The reference r ryan was not used to int erpret this result as normal/abnormal . [facility]ervillePrfmzqwLKFUJJDIHL0189-60-03 00:32:00 Test Item Value Reference Range Interpretation Comments Neutrophils # (test code = Neutrophils 9.0 1.5-8.1 #) [facility]ervilleMdkzcbyNJPTCRGACV5161-26-79 00:32:00 Test Item Value Reference Range Interpretation Comments Eosinophils # (test code 0.1 See_Comment [A utomated message] The = Eosinophils #) system whic h generated this result tra nsmitted reference range : <=0.5. The reference r ryan was not used to int erpret this result as normal/abnormal . [facility]ervilleBscftxfXKSEHNNRTL6928-96-68 00:32:00 Test Item Value Reference Range Interpretation Comments Lymphocytes # (test code = Lymphocytes 1.1 1.0-5.5 #) [facility]ervilleTkdtrjlCTNLATCNQY0421-18-24 00:32:00 Test Item Value Reference Range Interpretation Comments Monocytes (test code = Monocytes) 6.9 2.0-12.0 [facility]ervilleSjjckhtTTTEJQMOZH4204-36-64 00:32:00 Test Item Value Reference Range Interpretation Comments Lymphocytes (test code = Lymphocytes) 10.0 20.0-40.0 [facility]ervilleDvpdkwfZDKMDNNTAM6698-29-21 00:32:00 Test Item Value Reference Range Interpretation Comments Segs (test code = Segs) 81.7 45.0-75.0 [facility] [id number] 00:32:00 Test Item Value Reference Range Interpretation Comments UA Sq Epi (test code = UA Sq Epi) None [facility]en [facility] [id number] 00:32:00 Test Item Value Reference Range Interpretation Comments UA Spec Grav (test >=1.050 *ABN*(12/30/17 code = UA Spec Grav) 6:32 PM) [facility] [id number] 00:32:00 Test Item Value Reference Range Interpretation Comments UA Urobilinogen (test code = UA <=1.0 mg/dL 0.1-1.0 Urobilinogen) [facility] [id number] 00:32:00 Test Item Value Reference Range Interpretation Comments UA Bacteria (test code = UA Few /HPF Bacteria) [facility] [id number] 00:32:00 Test Item Value Reference Range Interpretation Comments UA Dittmer Yeast (test code = UA Occasional /HPF Dittmer Yeast) [facility] [id number] 00:32:00 Test Item Value Reference Range Interpretation Comments UA Mucus (test code = UA Mucus) Few /LPF [facility] [id number] 00:32:00 Test Item Value Reference Range Interpretation Comments UA Leuk Est (test code Large *ABN*(12/30/17 = UA Leuk Est) 6:32 PM) [facility] [id number] 00:32:00 Test Item Value Reference Range Interpretation Comments UA RBC (test code = 6 See_Comment [Automa tino message] The UA RBC) system which ge nerated this result transmit tino reference range : <=2. The reference range was not used to interpr et this result as debra l/abnormal. [facility] [id number] 00:32:00 Test Item Value Reference Range Interpretation Comments UA WBC (test code = 41 See_Comment [Automa tino message] The UA WBC) system which ge nerated this result transmit tino reference range : <=5. The reference range was not used to interpr et this result as debra l/abnormal. [facility] [id number] 00:32:00 Test Item Value Reference Range Interpretation Comments UA Blood (test code = Small *ABN*(12/30/17 UA Blood) 6:32 PM) [facility] AND [id number] 00:32:00 Test Item Value Reference Range Interpretation Comments UA Bili (test code = Negative *NA*(12/30/17 UA Bili) 6:32 PM) [facility] AND [id number] 00:32:00 Test Item Value Reference Range Interpretation Comments UA Protein (test code = UA Protein) 30 mg/dL [facility] AND [id number] 00:32:00 Test Item Value Reference Range Interpretation Comments UA Turbidity (test code = Clear (12/30/17 6:32 UA Turbidity) PM) [facility] AND [id number] 00:32:00 Test Item Value Reference Range Interpretation Comments UA pH (test code = UA pH) 6.0 1 5.0-8.0 [facility] AND [id number] 00:32:00 Test Item Value Reference Range Interpretation Comments UA Nitrite (test code Positive *ABN*(12/30/17 = UA Nitrite) 6:32 PM) [facility] AND [id number] 00:32:00 Test Item Value Reference Range Interpretation Comments UA Ketones (test code = UA Ketones) 10 mg/dL [facility] AND [id number] 00:32:00 Test Item Value Reference Range Interpretation Comments UA Glucose (test code = UA Glucose) 150 mg/dL [facility] AND [id number] 00:32:00 Test Item Value Reference Range Interpretation Comments UA Color (test code = Yellow *NA*(12/30/17 UA Color) 6:32 PM) [facility] LXDMTHE8272-11-31 00:32:00 Test Item Value Reference Range Interpretation Comments Troponin-I (test code no gt See_Comment [Auto mated message] The = Troponin-I) system which g enerated this result transmit tino reference range : <=0.40. The reference r ryan was not used to interpr et this result as debra l/abnormal. [facility]AC POFIMMJ0997-80-35 00:32:00 Test Item Value Reference Range Interpretation Comments Troponin-T (test code no gt See_Comment [Auto mated message] The = Troponin-T) system which g enerated this result transmit tino reference range : <=0.100. The reference r ryan was not used to interpr et this result as debra l/abnormal. [facility]2018-11-13 00:32:00 Test Item Value Reference Range Interpretation Comments Procalcitonin Lvl (test 0.26 See_Comment [Au tomated message] code = Procalcitonin Lvl) Th e system which generated this result transmitted ref erence range: <=0.10. The reference range was not used to interpr et this result as normal/abnormal . [facility] HospitalYnrlfzlKXKXLUMMVSZV9887-30-92 00:32:00 Test Item Value Reference Range Interpretation Comments AGAP (test code = AGAP) 11.6 10.0-20.0 [facility] HospitalMbdhhryVOLQGTAORPEC9564-16-83 00:32:00 Test Item Value Reference Range Interpretation Comments Potassium Lvl (test code = Potassium 3.6 3.5-5.1 Lvl) [facility] HospitalNjsseeoYJLESZZXFCRD9511-21-79 00:32:00 Test Item Value Reference Range Interpretation Comments BUN (test code = BUN) 13 7-22 [facility] HospitalPdldgbhFGCBOFLPENMH2494-08-37 00:32:00 Test Item Value Reference Range Interpretation Comments Creatinine Lvl (test code = Creatinine 0.78 0.50-1.40 Lvl) [facility] HospitalKdhkkjhZTQOZOJMSDXO1695-43-63 00:32:00 Test Item Value Reference Range Interpretation Comments Sodium Lvl (test code = Sodium Lvl) 132 135-145 [facility] HospitalSnofqxzMNSMVWPUJHQR1238-21-96 00:32:00 Test Item Value Reference Range Interpretation Comments Glucose Lvl (test code = Glucose Lvl) 203 70-99 [facility] HospitalYasvdlvBGSCHYQZWSTJ0931-63-32 00:32:00 Test Item Value Reference Range Interpretation Comments Calcium Lvl (test code = Calcium Lvl) 7.8 8.5-10.5 [facility] HospitalKjyamuvGUJBYSMMBIVO1101-14-09 00:32:00 Test Item Value Reference Range Interpretation Comments Chloride Lvl (test code = Chloride Lvl) 99 95-109 [facility] HospitalBvasynwUWZLFFKSUPHM8277-68-12 00:32:00 Test Item Value Reference Range Interpretation Comments CO2 (test code = CO2) 25 24-32 [facility] HospitalSgatxlfABWXEPRBUVNA4371-80-08 00:32:00 Test Item Value Reference Range Interpretation Comments eGFR (test code = eGFR) 89 [facility]ervilleEiugudsFVOBIALJIM8017-66-62 00:32:00 Test Item Value Reference Range Interpretation Comments MCV (test code = MCV) 91.8 80.0-94.0 [place] [address]-11-13 00:32:00 Test Item Value Reference Range Interpretation Comments MCHC (test code = MCHC) 35.2 32.0-36.0 [facility]ervilleLgjclpoLAIURUHJMR4845-93-96 00:32:00 Test Item Value Reference Range Interpretation Comments MCH (test code = MCH) 32.3 pg 27.0-31.0 [facility]ervilleRfsszssTKZWWYCYTA1693-78-51 00:32:00 Test Item Value Reference Range Interpretation Comments Platelet (test code = Platelet) 117 133-450 [facility]ervilleDxdhdeyDFVHNHQTBJ9423-58-93 00:32:00 Test Item Value Reference Range Interpretation Comments RDW (test code = RDW) 14.2 11.5-14.5 [facility]ervillePlnjmiiTLCWUMOXQJ9302-96-19 00:32:00 Test Item Value Reference Range Interpretation Comments MPV (test code = MPV) 8.8 7.4-10.4 [facility]ervilleTyyvkevGSVZQRFAGX6557-91-65 00:32:00 Test Item Value Reference Range Interpretation Comments Hct (test code = Hct) 27.2 42.0-54.0 [facility]ervilleWltgamlTPZWIIYEUC1670-32-75 00:32:00 Test Item Value Reference Range Interpretation Comments Hgb (test code = Hgb) 9.6 14.0-18.0 [facility]ervilleVudrkpuAENEYEXCRL1326-82-06 00:32:00 Test Item Value Reference Range Interpretation Comments RBC (test code = RBC) 2.97 4.70-6.10 [facility]ervilleZzhbnwcBUSUTFNGEQ9361-25-57 00:32:00 Test Item Value Reference Range Interpretation Comments WBC (test code = WBC) 11.0 3.7-10.4 [facility]ervilleMqkfcnbTSNBONGTKK2767-81-39 00:32:00 Test Item Value Reference Range Interpretation Comments Eosinophils (test code = 1.1 See_Comment [A utomated message] The Eosinophils) system which ge nerated this result tra nsmitted reference range : <=4.0. The reference r ryan was not used to int erpret this result as normal/abnormal . [facility]LfcdifmHWXFWZTTMJ9565-28-99 00:32:00 Test Item Value Reference Range Interpretation Comments Monocytes # (test code 0.8 See_Comment [Aut omated message] The = Monocytes #) system which generated this result tra nsmitted reference range : <=0.8. The reference r ryan was not used to int erpret this result as normal/abnormal . [facility]ervilleNcleggbQWSFWFYXUN8725-26-04 00:32:00 Test Item Value Reference Range Interpretation Comments Basophils (test code = 0.3 See_Comment [Aut omated message] The Basophils) system which ge nerated this result tra nsmitted reference range : <=1.0. The reference r ryan was not used to int erpret this result as normal/abnormal . [facility]ervilleNhgrlzaWGDERJMASA8911-44-67 00:32:00 Test Item Value Reference Range Interpretation Comments Neutrophils # (test code = Neutrophils 9.0 1.5-8.1 #) [facility]ervilleWiffmwbIVQQMMAGWE6286-03-14 00:32:00 Test Item Value Reference Range Interpretation Comments Eosinophils # (test code 0.1 See_Comment [A utomated message] The = Eosinophils #) system whic h generated this result tra nsmitted reference range : <=0.5. The reference r ryan was not used to int erpret this result as normal/abnormal . [facility]ervilleWbiispdGDTHCPDAFN2101-96-03 00:32:00 Test Item Value Reference Range Interpretation Comments Lymphocytes # (test code = Lymphocytes 1.1 1.0-5.5 #) [facility]ervilleAvhawnfCERBKQTZLD0915-43-45 00:32:00 Test Item Value Reference Range Interpretation Comments Monocytes (test code = Monocytes) 6.9 2.0-12.0 [facility]ervilleIlutowaSBUUUQQEDP4294-62-69 00:32:00 Test Item Value Reference Range Interpretation Comments Lymphocytes (test code = Lymphocytes) 10.0 20.0-40.0 [facility]ervilleOemlwiiYLJCVVKFFJ5787-75-35 00:32:00 Test Item Value Reference Range Interpretation Comments Segs (test code = Segs) 81.7 45.0-75.0 [facility]2018-11-13 00:32:00 Test Item Value Reference Range Interpretation Comments UA Sq Epi (test code = UA Sq Epi) None Seen [facility] AND [id number] 00:32:00 Test Item Value Reference Range Interpretation Comments UA Spec Grav (test >=1.050 *ABN*(12/30/17 code = UA Spec Grav) 6:32 PM) [facility] AND [id number] 00:32:00 Test Item Value Reference Range Interpretation Comments UA Urobilinogen (test code = UA <=1.0 mg/dL 0.1-1.0 Urobilinogen) [facility] AND [id number] 00:32:00 Test Item Value Reference Range Interpretation Comments UA Bacteria (test code = UA Few /HPF Bacteria) [facility] AND [id number] 00:32:00 Test Item Value Reference Range Interpretation Comments UA Dittmer Yeast (test code = UA Occasional /HPF Dittmer Yeast) [facility] AND [id number] 00:32:00 Test Item Value Reference Range Interpretation Comments UA Mucus (test code = UA Mucus) Few /LPF [facility] AND [id number] 00:32:00 Test Item Value Reference Range Interpretation Comments UA Leuk Est (test code Large *ABN*(12/30/17 = UA Leuk Est) 6:32 PM) [facility] AND [id number] 00:32:00 Test Item Value Reference Range Interpretation Comments UA RBC (test code = 6 See_Comment [Automa tino message] The UA RBC) system which ge nerated this result transmit tino reference range : <=2. The reference range was not used to interpr et this result as debra l/abnormal. [facility] AND [id number] 00:32:00 Test Item Value Reference Range Interpretation Comments UA WBC (test code = 41 See_Comment [Automa tino message] The UA WBC) system which ge nerated this result transmit tino reference range : <=5. The reference range was not used to interpr et this result as debra l/abnormal. [facility] AND [id number] 00:32:00 Test Item Value Reference Range Interpretation Comments UA Blood (test code = Small *ABN*(12/30/17 UA Blood) 6:32 PM) [facility] AND [id number] 00:32:00 Test Item Value Reference Range Interpretation Comments UA Bili (test code = Negative *NA*(12/30/17 UA Bili) 6:32 PM) [facility] AND [id number] 00:32:00 Test Item Value Reference Range Interpretation Comments UA Protein (test code = UA Protein) 30 mg/dL [facility] AND [id number] 00:32:00 Test Item Value Reference Range Interpretation Comments UA Turbidity (test code = Clear (12/30/17 6:32 UA Turbidity) PM) [facility] AND [id number] 00:32:00 Test Item Value Reference Range Interpretation Comments UA pH (test code = UA pH) 6.0 1 5.0-8.0 [facility] AND [id number] 00:32:00 Test Item Value Reference Range Interpretation Comments UA Nitrite (test code Positive *ABN*(12/30/17 = UA Nitrite) 6:32 PM) [facility] AND [id number] 00:32:00 Test Item Value Reference Range Interpretation Comments UA Ketones (test code = UA Ketones) 10 mg/dL [facility] AND [id number] 00:32:00 Test Item Value Reference Range Interpretation Comments UA Glucose (test code = UA Glucose) 150 mg/dL [facility] AND [id number] 00:32:00 Test Item Value Reference Range Interpretation Comments UA Color (test code = Yellow *NA*(12/30/17 UA Color) 6:32 PM) [facility] [id number] 00:32:00 Test Item Value Reference Range Interpretation Comments Troponin-I (test code no gt See_Comment [Auto mated message] The = Troponin-I) system which g enerated this result transmit tino reference range : <=0.40. The reference r ryan was not used to interpr et this result as debra l/abnormal. [facility] [id number] 00:32:00 Test Item Value Reference Range Interpretation Comments Troponin-T (test code no gt See_Comment [Auto mated message] The = Troponin-T) system which g enerated this result transmit tino reference range : <=0.100. The reference r ryan was not used to interpr et this result as debra l/abnormal. [facility] GetShopAppCHEM [id number] 00:32:00 Test Item Value Reference Range Interpretation Comments Procalcitonin Lvl (test 0.26 See_Comment [Au tomated message] code = Procalcitonin Lvl) e system which generated this result transmitted ref erence range: <=0.10. The reference range was not used to interpr et this result as normal/abnormal . [facility] HospitalDieqmgsPUFCFMGHMVGI6843-51-96 00:32:00 Test Item Value Reference Range Interpretation Comments AGAP (test code = AGAP) 11.6 10.0-20.0 [facility] HospitalRujxrucACWTJEUNQJIM6691-98-79 00:32:00 Test Item Value Reference Range Interpretation Comments Potassium Lvl (test code = Potassium 3.6 3.5-5.1 Lvl) [facility] HospitalQiaiqthZSSLSGGTZBPM3493-51-06 00:32:00 Test Item Value Reference Range Interpretation Comments BUN (test code = BUN) 13 7-22 [facility] HospitalLvbqnewJZADJZHHKDPB3028-86-33 00:32:00 Test Item Value Reference Range Interpretation Comments Creatinine Lvl (test code = Creatinine 0.78 0.50-1.40 Lvl) [facility] HospitalMgsyhsjVUDQSEFMILWD4541-73-07 00:32:00 Test Item Value Reference Range Interpretation Comments Sodium Lvl (test code = Sodium Lvl) 132 135-145 [facility] HospitalImzwzcgKTJFCIFYNYZG6780-65-04 00:32:00 Test Item Value Reference Range Interpretation Comments Glucose Lvl (test code = Glucose Lvl) 203 70-99 [facility] HospitalTvsxyyfARNGLVPYBXUQ5740-82-82 00:32:00 Test Item Value Reference Range Interpretation Comments Calcium Lvl (test code = Calcium Lvl) 7.8 8.5-10.5 [facility] HospitalGldyuxoNEXTKZSLUABY9843-54-41 00:32:00 Test Item Value Reference Range Interpretation Comments Chloride Lvl (test code = Chloride Lvl) 99 95-109 [facility] HospitalGtjoushTBMXGMQDLLFD4724-15-36 00:32:00 Test Item Value Reference Range Interpretation Comments CO2 (test code = CO2) 25 24-32 [facility] HospitalBjotphnINXGQZQIKFRC2514-02-97 00:32:00 Test Item Value Reference Range Interpretation Comments eGFR (test code = eGFR) 89 [facility] CenterIwmvmboJLUFMRJJIX0407-09-90 00:32:00 Test Item Value Reference Range Interpretation Comments MCV (test code = MCV) 91.8 80.0-94.0 [facility]ervilleOrjomhhAAOLLIRXWS9450-16-70 00:32:00 Test Item Value Reference Range Interpretation Comments MCHC (test code = MCHC) 35.2 32.0-36.0 [facility]ervilleZiutesdXBVJDCYIGR8872-93-68 00:32:00 Test Item Value Reference Range Interpretation Comments MCH (test code = MCH) 32.3 pg 27.0-31.0 [facility]ervilleUnmyragPEFHDQBGUX3619-21-11 00:32:00 Test Item Value Reference Range Interpretation Comments Platelet (test code = Platelet) 117 133-450 [facility]ervilleArsxotdEAUDXKYEUA3428-98-93 00:32:00 Test Item Value Reference Range Interpretation Comments RDW (test code = RDW) 14.2 11.5-14.5 [facility]ervilleSstxdeeDBJQFNQRHT6899-55-32 00:32:00 Test Item Value Reference Range Interpretation Comments MPV (test code = MPV) 8.8 7.4-10.4 [facility]ervilleWuuiewgVVLWKQAAQB5016-39-12 00:32:00 Test Item Value Reference Range Interpretation Comments Hct (test code = Hct) 27.2 42.0-54.0 [facility]ervilleSicydceIILPEZEEXQ2725-96-97 00:32:00 Test Item Value Reference Range Interpretation Comments Hgb (test code = Hgb) 9.6 14.0-18.0 [facility]ervilleJdljetxDSXFCPLJHO1901-44-11 00:32:00 Test Item Value Reference Range Interpretation Comments RBC (test code = RBC) 2.97 4.70-6.10 [facility]ervilleTyuprplPDZFDYDWDJ7705-81-02 00:32:00 Test Item Value Reference Range Interpretation Comments WBC (test code = WBC) 11.0 3.7-10.4 [facility]ervilleYivzgmrHXPQFRRQOB7533-24-78 00:32:00 Test Item Value Reference Range Interpretation Comments Eosinophils (test code = 1.1 See_Comment [A utomated message] The Eosinophils) system which ge nerated this result tra nsmitted reference range : <=4.0. The reference r ryan was not used to int erpret this result as normal/abnormal . [facility]ervilleXssreiqSBYYKVJTUC3224-76-53 00:32:00 Test Item Value Reference Range Interpretation Comments Monocytes # (test code 0.8 See_Comment [Aut omated message] The = Monocytes #) system which generated this result tra nsmitted reference range : <=0.8. The reference r ryan was not used to int erpret this result as normal/abnormal . [facility]ervilleSclbmglXVPIOPNMRY6713-31-36 00:32:00 Test Item Value Reference Range Interpretation Comments Basophils (test code = 0.3 See_Comment [Aut omated message] The Basophils) system which ge nerated this result tra nsmitted reference range : <=1.0. The reference r ryan was not used to int erpret this result as normal/abnormal . [facility]ervilleXmhyuezXMMLKKEHLG9906-23-92 00:32:00 Test Item Value Reference Range Interpretation Comments Neutrophils # (test code = Neutrophils 9.0 1.5-8.1 #) [facility]ervilleZunzokpIRKJYWTKPU0396-07-57 00:32:00 Test Item Value Reference Range Interpretation Comments Eosinophils # (test code 0.1 See_Comment [A utomated message] The = Eosinophils #) system whic h generated this result tra nsmitted reference range : <=0.5. The reference r ryan was not used to int erpret this result as normal/abnormal . [facility]ervilleZwjfnoaVJYPUJEDXU9614-39-30 00:32:00 Test Item Value Reference Range Interpretation Comments Lymphocytes # (test code = Lymphocytes 1.1 1.0-5.5 #) [facility]ervilleIrayjxcEMVUXYEYRV8974-63-07 00:32:00 Test Item Value Reference Range Interpretation Comments Monocytes (test code = Monocytes) 6.9 2.0-12.0 [facility]ervilleKcgomfxZQMMIBECDC1034-51-00 00:32:00 Test Item Value Reference Range Interpretation Comments Lymphocytes (test code = Lymphocytes) 10.0 20.0-40.0 [facility]ervilleCjfedfyFDXZXDEZTB1193-58-90 00:32:00 Test Item Value Reference Range Interpretation Comments Segs (test code = Segs) 81.7 45.0-75.0 [facility]2018-11-13 00:32:00 Test Item Value Reference Range Interpretation Comments UA Sq Epi (test code = UA Sq Epi) None Seen [facility]2018-11-13 00:32:00 Test Item Value Reference Range Interpretation Comments UA Spec Grav (test >=1.050 *ABN*(12/30/17 code = UA Spec Grav) 6:32 PM) [facility] [id number] 00:32:00 Test Item Value Reference Range Interpretation Comments UA Urobilinogen (test code = UA <=1.0 mg/dL 0.1-1.0 Urobilinogen) [facility] [id number] 00:32:00 Test Item Value Reference Range Interpretation Comments UA Bacteria (test code = UA Few /HPF Bacteria) [facility] [id number] 00:32:00 Test Item Value Reference Range Interpretation Comments UA Dittmer Yeast (test code = UA Occasional /HPF Dittmer Yeast) [facility] [id number] 00:32:00 Test Item Value Reference Range Interpretation Comments UA Mucus (test code = UA Mucus) Few /LPF [facility] AND [id number] 00:32:00 Test Item Value Reference Range Interpretation Comments UA Leuk Est (test code Large *ABN*(12/30/17 = UA Leuk Est) 6:32 PM) [facility] AND [id number] 00:32:00 Test Item Value Reference Range Interpretation Comments UA RBC (test code = 6 See_Comment [Automa tino message] The UA RBC) system which ge nerated this result transmit tino reference range : <=2. The reference range was not used to interpr et this result as debra l/abnormal. [facility] AND [id number] 00:32:00 Test Item Value Reference Range Interpretation Comments UA WBC (test code = 41 See_Comment [Automa tino message] The UA WBC) system which ge nerated this result transmit tino reference range : <=5. The reference range was not used to interpr et this result as debra l/abnormal. [facility] AND [id number] 00:32:00 Test Item Value Reference Range Interpretation Comments UA Blood (test code = Small *ABN*(12/30/17 UA Blood) 6:32 PM) [facility] [id number] 00:32:00 Test Item Value Reference Range Interpretation Comments UA Bili (test code = Negative *NA*(12/30/17 UA Bili) 6:32 PM) [facility] [id number] 00:32:00 Test Item Value Reference Range Interpretation Comments UA Protein (test code = UA Protein) 30 mg/dL [facility] AND [id number] 00:32:00 Test Item Value Reference Range Interpretation Comments UA Turbidity (test code = Clear (12/30/17 6:32 UA Turbidity) PM) [facility] AND [id number] 00:32:00 Test Item Value Reference Range Interpretation Comments UA pH (test code = UA pH) 6.0 1 5.0-8.0 [facility] AND [id number] 00:32:00 Test Item Value Reference Range Interpretation Comments UA Nitrite (test code Positive *ABN*(12/30/17 = UA Nitrite) 6:32 PM) [facility] AND [id number] 00:32:00 Test Item Value Reference Range Interpretation Comments UA Ketones (test code = UA Ketones) 10 mg/dL [facility] AND [id number] 00:32:00 Test Item Value Reference Range Interpretation Comments UA Glucose (test code = UA Glucose) 150 mg/dL [facility] AND [id number] 00:32:00 Test Item Value Reference Range Interpretation Comments UA Color (test code = Yellow *NA*(12/30/17 UA Color) 6:32 PM) [facility]AC [id number] 00:32:00 Test Item Value Reference Range Interpretation Comments Troponin-I (test code no gt See_Comment [Auto mated message] The = Troponin-I) system which g enerated this result transmit tino reference range : <=0.40. The reference r ryan was not used to interpr et this result as debra l/abnormal. [facility]AC EZHUGPN3669-48-00 00:32:00 Test Item Value Reference Range Interpretation Comments Troponin-T (test code no gt See_Comment [Auto mated message] The = Troponin-T) system which g enerated this result transmit tino reference range : <=0.100. The reference r ryan was not used to interpr et this result as debra l/abnormal. [facility] ChaologixannCHEM [id number] 00:32:00 Test Item Value Reference Range Interpretation Comments Procalcitonin Lvl (test 0.26 See_Comment [Au tomated message] code = Procalcitonin Lvl) Th e system which generated this result transmitted ref erence range: <=0.10. The reference range was not used to interpr et this result as normal/abnormal . [facility] HospitalRdmwtmbAEPAQGAGUCST4602-26-29 00:32:00 Test Item Value Reference Range Interpretation Comments AGAP (test code = AGAP) 11.6 10.0-20.0 [facility] HospitalFllpzdeHXLJBFCTTWXN7801-77-55 00:32:00 Test Item Value Reference Range Interpretation Comments Potassium Lvl (test code = Potassium 3.6 3.5-5.1 Lvl) [facility] HospitalBgbiaqvDIFBBSNRVRAS6448-24-70 00:32:00 Test Item Value Reference Range Interpretation Comments BUN (test code = BUN) 13 7-22 [facility] HospitalAtfzzopWPYHGBWSEXLO5755-45-83 00:32:00 Test Item Value Reference Range Interpretation Comments Creatinine Lvl (test code = Creatinine 0.78 0.50-1.40 Lvl) [facility] HospitalKrsmrllCSCXLATNXVMD6852-93-79 00:32:00 Test Item Value Reference Range Interpretation Comments Sodium Lvl (test code = Sodium Lvl) 132 135-145 [facility] HospitalDlsbnglAEFJJGEWCZUM4174-71-18 00:32:00 Test Item Value Reference Range Interpretation Comments Glucose Lvl (test code = Glucose Lvl) 203 70-99 [facility] HospitalZbzijmeVWZRNHYHFWZS7443-09-05 00:32:00 Test Item Value Reference Range Interpretation Comments Calcium Lvl (test code = Calcium Lvl) 7.8 8.5-10.5 [facility] HospitalAgfxdxzSVUFCUNZAXRJ0371-08-05 00:32:00 Test Item Value Reference Range Interpretation Comments Chloride Lvl (test code = Chloride Lvl) 99 95-109 [facility] HospitalWfvsnovRQNXEVAHCBCX7330-75-81 00:32:00 Test Item Value Reference Range Interpretation Comments CO2 (test code = CO2) 25 24-32 [facility] HospitalXwriwnkKBQYWCWDGBGN5083-68-75 00:32:00 Test Item Value Reference Range Interpretation Comments eGFR (test code = eGFR) 89 [facility]ervilleKmrkmsaFYQHPVVSGO3455-15-54 00:32:00 Test Item Value Reference Range Interpretation Comments MCV (test code = MCV) 91.8 80.0-94.0 [facility]ervilleWinlwbvZDDRAPSQNS7515-84-76 00:32:00 Test Item Value Reference Range Interpretation Comments MCHC (test code = MCHC) 35.2 32.0-36.0 [facility]ervilleWjabpvtZZPELSCGEC3941-03-17 00:32:00 Test Item Value Reference Range Interpretation Comments MCH (test code = MCH) 32.3 pg 27.0-31.0 [facility]ervilleJrpsuwiQNNNNSUNZE6930-70-49 00:32:00 Test Item Value Reference Range Interpretation Comments Platelet (test code = Platelet) 117 133-450 [facility]ervilleRqueqqjPYCCOGQJDA5580-48-34 00:32:00 Test Item Value Reference Range Interpretation Comments RDW (test code = RDW) 14.2 11.5-14.5 [facility]ervilleDvxysarIXBEJYPANE5821-94-61 00:32:00 Test Item Value Reference Range Interpretation Comments MPV (test code = MPV) 8.8 7.4-10.4 [facility]ervilleLkyyospBWNCMGREEE5000-47-61 00:32:00 Test Item Value Reference Range Interpretation Comments Hct (test code = Hct) 27.2 42.0-54.0 [facility]ervilleRpffrsaDEBASBZMGT6581-86-91 00:32:00 Test Item Value Reference Range Interpretation Comments Hgb (test code = Hgb) 9.6 14.0-18.0 [facility]ervilleGcsggqnWQSMPKSUWL7357-71-16 00:32:00 Test Item Value Reference Range Interpretation Comments RBC (test code = RBC) 2.97 4.70-6.10 [facility]ervilleTyrbqsoILOPHODEEW0270-96-20 00:32:00 Test Item Value Reference Range Interpretation Comments WBC (test code = WBC) 11.0 3.7-10.4 [facility]ervilleLagfpjsEEFEOTSOBS6615-10-90 00:32:00 Test Item Value Reference Range Interpretation Comments Eosinophils (test code = 1.1 See_Comment [A utomated message] The Eosinophils) system which ge nerated this result tra nsmitted reference range : <=4.0. The reference r ryan was not used to int erpret this result as normal/abnormal . [facility]ervilleCavxlzwMWQAYXGONP3849-63-26 00:32:00 Test Item Value Reference Range Interpretation Comments Monocytes # (test code 0.8 See_Comment [Aut omated message] The = Monocytes #) system which generated this result tra nsmitted reference range : <=0.8. The reference r ryan was not used to int erpret this result as normal/abnormal . [place] 875718-11-13 00:32:00 Test Item Value Reference Range Interpretation Comments Basophils (test code = 0.3 See_Comment [Aut omated message] The Basophils) system which ge nerated this result tra nsmitted reference range : <=1.0. The reference r ryan was not used to int erpret this result as normal/abnormal . [facility]ervilleEqyjfkgSJCVKHCNHH8121-15-97 00:32:00 Test Item Value Reference Range Interpretation Comments Neutrophils # (test code = Neutrophils 9.0 1.5-8.1 #) [facility]ervilleLgsrzajVVBXQPVMQG6435-01-89 00:32:00 Test Item Value Reference Range Interpretation Comments Eosinophils # (test code 0.1 See_Comment [A utomated message] The = Eosinophils #) system whic h generated this result tra nsmitted reference range : <=0.5. The reference r ryan was not used to int erpret this result as normal/abnormal . [facility]ervilleIreioazGTZOEADSSU2101-27-67 00:32:00 Test Item Value Reference Range Interpretation Comments Lymphocytes # (test code = Lymphocytes 1.1 1.0-5.5 #) [facility]ervilleKyjsvabACIEURCBPK1702-57-19 00:32:00 Test Item Value Reference Range Interpretation Comments Monocytes (test code = Monocytes) 6.9 2.0-12.0 [facility]ervilleVwvtogbGGLPUYUKHA8081-85-32 00:32:00 Test Item Value Reference Range Interpretation Comments Lymphocytes (test code = Lymphocytes) 10.0 20.0-40.0 [facility]ervilleGsupopyWLELODRVDT8420-36-45 00:32:00 Test Item Value Reference Range Interpretation Comments Segs (test code = Segs) 81.7 45.0-75.0 [facility]2018-11-13 00:32:00 Test Item Value Reference Range Interpretation Comments UA Sq Epi (test code = UA Sq Epi) None Seen [facility] AND [id number] 00:32:00 Test Item Value Reference Range Interpretation Comments UA Spec Grav (test >=1.050 *ABN*(12/30/17 code = UA Spec Grav) 6:32 PM) [facility] AND [id number] 00:32:00 Test Item Value Reference Range Interpretation Comments UA Urobilinogen (test code = UA <=1.0 mg/dL 0.1-1.0 [facility]ogen) [facility] [id number] 00:32:00 Test Item Value Reference Range Interpretation Comments UA Bacteria (test code = UA Few /HPF Bacteria) [facility] [id number] 00:32:00 Test Item Value Reference Range Interpretation Comments UA Dittmer Yeast (test code = UA Occasional /HPF Dittmer Yeast) [facility] [id number] 00:32:00 Test Item Value Reference Range Interpretation Comments UA Mucus (test code = UA Mucus) Few /LPF [facility] [id number] 00:32:00 Test Item Value Reference Range Interpretation Comments UA Leuk Est (test code Large *ABN*(12/30/17 = UA Leuk Est) 6:32 PM) [facility] [id number] 00:32:00 Test Item Value Reference Range Interpretation Comments UA RBC (test code = 6 See_Comment [Automa tino message] The UA RBC) system which ge nerated this result transmit tino reference range : <=2. The reference range was not used to interpr et this result as debra l/abnormal. [facility] [id number] 00:32:00 Test Item Value Reference Range Interpretation Comments UA WBC (test code = 41 See_Comment [Automa tino message] The UA WBC) system which ge nerated this result transmit tino reference range : <=5. The reference range was not used to interpr et this result as debra l/abnormal. [facility] [id number] 00:32:00 Test Item Value Reference Range Interpretation Comments UA Blood (test code = Small *ABN*(12/30/17 UA Blood) 6:32 PM) [facility] [id number] 00:32:00 Test Item Value Reference Range Interpretation Comments UA Bili (test code = Negative *NA*(12/30/17 UA Bili) 6:32 PM) [facility] [id number] 00:32:00 Test Item Value Reference Range Interpretation Comments UA Protein (test code = UA Protein) 30 mg/dL [facility] [id number] 00:32:00 Test Item Value Reference Range Interpretation Comments UA Turbidity (test code = Clear (12/30/17 6:32 UA Turbidity) PM) [facility] AND [id number] 00:32:00 Test Item Value Reference Range Interpretation Comments UA pH (test code = UA pH) 6.0 1 5.0-8.0 [facility] AND [id number] 00:32:00 Test Item Value Reference Range Interpretation Comments UA Nitrite (test code Positive *ABN*(12/30/17 = UA Nitrite) 6:32 PM) [facility] AND [id number] 00:32:00 Test Item Value Reference Range Interpretation Comments UA Ketones (test code = UA Ketones) 10 mg/dL [facility] AND [id number] 00:32:00 Test Item Value Reference Range Interpretation Comments UA Glucose (test code = UA Glucose) 150 mg/dL [facility] AND [id number] 00:32:00 Test Item Value Reference Range Interpretation Comments UA Color (test code = Yellow *NA*(12/30/17 UA Color) 6:32 PM) [facility] [id number] 00:32:00 Test Item Value Reference Range Interpretation Comments Troponin-I (test code no gt See_Comment [Auto mated message] The = Troponin-I) system which g enerated this result transmit tino reference range : <=0.40. The reference r ryan was not used to interpr et this result as debra l/abnormal. [facility] [id number] 00:32:00 Test Item Value Reference Range Interpretation Comments Troponin-T (test code no gt See_Comment [Auto mated message] The = Troponin-T) system which g enerated this result transmit tino reference range : <=0.100. The reference r ryan was not used to interpr et this result as debra l/abnormal. [facility] [id number] 00:32:00 Test Item Value Reference Range Interpretation Comments Procalcitonin Lvl (test 0.26 See_Comment [Au tomated message] code = Procalcitonin Lvl) Th e system which generated this result transmitted ref erence range: <=0.10. The reference range was not used to interpr et this result as normal/abnormal . [facility] NortheastJcsmitzLORBAISWMFLW0159-50-67 00:32:00 Test Item Value Reference Range Interpretation Comments AGAP (test code = AGAP) 11.6 10.0-20.0 [facility]meMWPQHAPQGZMS8746-33-81 00:32:00 Test Item Value Reference Range Interpretation Comments Potassium Lvl (test code = Potassium 3.6 3.5-5.1 Lvl) [facility] HospitalBgqzgljKIUJVNTKKRJF3112-59-04 00:32:00 Test Item Value Reference Range Interpretation Comments BUN (test code = BUN) 13 7-22 [facility] HospitalDgszavnBFRRFZGKSTZA4336-30-56 00:32:00 Test Item Value Reference Range Interpretation Comments Creatinine Lvl (test code = Creatinine 0.78 0.50-1.40 Lvl) [facility] HospitalZoawbnhBWELBBEWDELM4014-54-36 00:32:00 Test Item Value Reference Range Interpretation Comments Sodium Lvl (test code = Sodium Lvl) 132 135-145 [facility] HospitalVtgrfeuNPXCIOBXLJQC5456-38-72 00:32:00 Test Item Value Reference Range Interpretation Comments Glucose Lvl (test code = Glucose Lvl) 203 70-99 [facility] HospitalRoivgxbEDSITMNWEGVS6162-73-21 00:32:00 Test Item Value Reference Range Interpretation Comments Calcium Lvl (test code = Calcium Lvl) 7.8 8.5-10.5 [facility] HospitalLaspegqRXWZIUYODYNV7449-36-89 00:32:00 Test Item Value Reference Range Interpretation Comments Chloride Lvl (test code = Chloride Lvl) 99 95-109 [facility] HospitalQajysqkNYDPFDIPQKHO2859-25-75 00:32:00 Test Item Value Reference Range Interpretation Comments CO2 (test code = CO2) 25 24-32 [facility] HospitalSuzopxlZQBOKOPNODNG8625-71-14 00:32:00 Test Item Value Reference Range Interpretation Comments eGFR (test code = eGFR) 89 [facility]EjysntxVXZCFLJVLU3252-26-65 00:32:00 Test Item Value Reference Range Interpretation Comments MCV (test code = MCV) 91.8 80.0-94.0 [facility]ervilleYmajvzeTIPVPOKWJU1014-07-82 00:32:00 Test Item Value Reference Range Interpretation Comments MCHC (test code = MCHC) 35.2 32.0-36.0 [facility]ervilleZtbsofwOQXFJGUSBX8075-86-80 00:32:00 Test Item Value Reference Range Interpretation Comments MCH (test code = MCH) 32.3 pg 27.0-31.0 [facility]ervilleZqecjfjQMKSYRXHKZ3637-50-84 00:32:00 Test Item Value Reference Range Interpretation Comments Platelet (test code = Platelet) 117 133-450 [facility]ervilleXvwadgqDEUBCIXTCU4515-03-09 00:32:00 Test Item Value Reference Range Interpretation Comments RDW (test code = RDW) 14.2 11.5-14.5 [facility]ervilleQapcjuqTGUWXVOHQY3235-13-58 00:32:00 Test Item Value Reference Range Interpretation Comments MPV (test code = MPV) 8.8 7.4-10.4 [facility]ervilleWttoogyLGWXAUAYDJ0590-87-42 00:32:00 Test Item Value Reference Range Interpretation Comments Hct (test code = Hct) 27.2 42.0-54.0 [facility]ervilleIehuvacGDNTKPYEOR8375-09-02 00:32:00 Test Item Value Reference Range Interpretation Comments Hgb (test code = Hgb) 9.6 14.0-18.0 [facility]ervilleRrskavbNOMOMFJMPT1047-03-66 00:32:00 Test Item Value Reference Range Interpretation Comments RBC (test code = RBC) 2.97 4.70-6.10 [facility]ervilleJcxkezxRBZPFDGRSH4929-06-28 00:32:00 Test Item Value Reference Range Interpretation Comments WBC (test code = WBC) 11.0 3.7-10.4 [facility]ervilleGztlpkwXNDMKRWGLD6957-66-50 00:32:00 Test Item Value Reference Range Interpretation Comments Eosinophils (test code = 1.1 See_Comment [A utomated message] The Eosinophils) system which ge nerated this result tra nsmitted reference range : <=4.0. The reference r ryan was not used to int erpret this result as normal/abnormal . [facility]ervilleIwdhagnATEVNPHFUF4801-64-68 00:32:00 Test Item Value Reference Range Interpretation Comments Monocytes # (test code 0.8 See_Comment [Aut omated message] The = Monocytes #) system which generated this result tra nsmitted reference range : <=0.8. The reference r ryan was not used to int erpret this result as normal/abnormal . [facility]ervilleXxbkydqNFONZHPUQA9579-03-13 00:32:00 Test Item Value Reference Range Interpretation Comments Basophils (test code = 0.3 See_Comment [Aut omated message] The Basophils) system which ge nerated this result tra nsmitted reference range : <=1.0. The reference r ryan was not used to int erpret this result as normal/abnormal . [facility]ervilleMtzandbOKZKIQITSB1794-21-45 00:32:00 Test Item Value Reference Range Interpretation Comments Neutrophils # (test code = Neutrophils 9.0 1.5-8.1 #) [facility]ervilleMnfavgtYVWCHSENSO5999-45-67 00:32:00 Test Item Value Reference Range Interpretation Comments Eosinophils # (test code 0.1 See_Comment [A utomated message] The = Eosinophils #) system whic h generated this result tra nsmitted reference range : <=0.5. The reference r ryan was not used to int erpret this result as normal/abnormal . [facility]ervilleDfugtwdCGHXSRLWOW1066-78-73 00:32:00 Test Item Value Reference Range Interpretation Comments Lymphocytes # (test code = Lymphocytes 1.1 1.0-5.5 #) [facility]ervilleLeulxvyHQHHPITCWK5620-85-21 00:32:00 Test Item Value Reference Range Interpretation Comments Monocytes (test code = Monocytes) 6.9 2.0-12.0 [facility]ervilleXudxyirQUIBMXAAEB1982-36-71 00:32:00 Test Item Value Reference Range Interpretation Comments Lymphocytes (test code = Lymphocytes) 10.0 20.0-40.0 [facility]ervilleZzlshumJVSKQANVHB8854-96-57 00:32:00 Test Item Value Reference Range Interpretation Comments Segs (test code = Segs) 81.7 45.0-75.0 [facility] AND [id number] 00:32:00 Test Item Value Reference Range Interpretation Comments UA Sq Epi (test code = UA Sq Epi) None Seen [facility] AND [id number] 00:32:00 Test Item Value Reference Range Interpretation Comments UA Spec Grav (test >=1.050 *ABN*(12/30/17 code = UA Spec Grav) 6:32 PM) [facility] AND [id number] 00:32:00 Test Item Value Reference Range Interpretation Comments UA Urobilinogen (test code = UA <=1.0 mg/dL 0.1-1.0 Urobilinogen) [facility] AND [id number] 00:32:00 Test Item Value Reference Range Interpretation Comments UA Bacteria (test code = UA Few /HPF Bacteria) [facility] AND [id number] 00:32:00 Test Item Value Reference Range Interpretation Comments UA Dittmer Yeast (test code = UA Occasional /HPF Dittmer Yeast) [facility] AND [id number] 00:32:00 Test Item Value Reference Range Interpretation Comments UA Mucus (test code = UA Mucus) Few /LPF [facility] AND [id number] 00:32:00 Test Item Value Reference Range Interpretation Comments UA Leuk Est (test code Large *ABN*(12/30/17 = UA Leuk Est) 6:32 PM) [facility] AND [id number] 00:32:00 Test Item Value Reference Range Interpretation Comments UA RBC (test code = 6 See_Comment [Automa tino message] The UA RBC) system which ge nerated this result transmit tino reference range : <=2. The reference range was not used to interpr et this result as debra l/abnormal. [facility]ervilleWwuvityVTFIAKWQMX5811-70-54 18:19:00 Test Item Value Reference Range Interpretation Comments Basophils # (test code 0.1 See_Comment [Aut omated message] The = Basophils #) system which generated this result tra nsmitted reference range : <=0.2. The reference r ryan was not used to int erpret this result as normal/abnormal . [facility]ervilleQzqfashYTFZIVTKSV9643-86-00 18:19:00 Test Item Value Reference Range Interpretation Comments Basophils # (test code 0.1 See_Comment [Aut omated message] The = Basophils #) system which generated this result tra nsmitted reference range : <=0.2. The reference r ryan was not used to int erpret this result as normal/abnormal . [facility]ervilleGrgwgqyKOFOYYPZSY8869-91-11 18:19:00 Test Item Value Reference Range Interpretation Comments Basophils # (test code 0.1 See_Comment [Aut omated message] The = Basophils #) system which generated this result tra nsmitted reference range : <=0.2. The reference r ryan was not used to int erpret this result as normal/abnormal . [facility]ervilleYmljnblTHRUHKHBQW4308-51-59 18:19:00 Test Item Value Reference Range Interpretation Comments Basophils # (test code 0.1 See_Comment [Aut omated message] The = Basophils #) system which generated this result tra nsmitted reference range : <=0.2. The reference r ryan was not used to int erpret this result as normal/abnormal . [facility]ervilleEwozurdNFRBKZXOWY0356-39-46 18:19:00 Test Item Value Reference Range Interpretation Comments Basophils # (test code 0.1 See_Comment [Aut omated message] The = Basophils #) system which generated this result tra nsmitted reference range : <=0.2. The reference r ryan was not used to int erpret this result as normal/abnormal . [facility]ervilleLhyhmjmYWTXDRCWXW4384-38-42 18:19:00 Test Item Value Reference Range Interpretation Comments Basophils # (test code 0.1 See_Comment [Aut omated message] The = Basophils #) system which generated this result tra nsmitted reference range : <=0.2. The reference r ryan was not used to int erpret this result as normal/abnormal . [facility]ervilleSkmtkbbPEAJTSJRYE7813-93-42 18:19:00 Test Item Value Reference Range Interpretation Comments Basophils # (test code 0.1 See_Comment [Aut omated message] The = Basophils #) system which generated this result tra nsmitted reference range : <=0.2. The reference r ryan was not used to int erpret this result as normal/abnormal . [facility]ervilleTieeylnIEDCUXFNEK5982-00-19 15:32:00 Test Item Value Reference Range Interpretation Comments RBC Morph (test code = Normal (12/29/17 9:32 RBC Morph) AM) [facility]ervilleXvqbpqhSGUSGVJESJ9486-20-70 15:32:00 Test Item Value Reference Range Interpretation Comments Plt Morph (test code = Normal (12/29/17 9:32 Plt Morph) AM) [facility]ervilleNenvinjHZOUIUCVCR8200-14-84 15:32:00 Test Item Value Reference Range Interpretation Comments RBC Morph (test code = Normal (12/29/17 9:32 RBC Morph) AM) [facility]ervilleEdjbkncLPTUORTLDD8675-50-75 15:32:00 Test Item Value Reference Range Interpretation Comments Plt Morph (test code = Normal (12/29/17 9:32 Plt Morph) AM) [facility]ervilleHygqzqwADACNJRTRT2215-62-66 15:32:00 Test Item Value Reference Range Interpretation Comments RBC Morph (test code = Normal (12/29/17 9:32 RBC Morph) AM) [facility]ervillePkphfmhXOYRBQPTLG7634-78-37 15:32:00 Test Item Value Reference Range Interpretation Comments Plt Morph (test code = Normal (12/29/17 9:32 Plt Morph) AM) [facility]ervilleCdmouevZDHUNALAEW0039-43-92 15:32:00 Test Item Value Reference Range Interpretation Comments RBC Morph (test code = Normal (12/29/17 9:32 RBC Morph) AM) [facility]ervilleDmodogpOGWVYHXLUK7199-10-75 15:32:00 Test Item Value Reference Range Interpretation Comments Plt Morph (test code = Normal (12/29/17 9:32 Plt Morph) AM) [facility]ervilleXnixaffQYTDPXDBXF3104-51-43 15:32:00 Test Item Value Reference Range Interpretation Comments RBC Morph (test code = Normal (12/29/17 9:32 RBC Morph) AM) [facility]ervilleFlslbamVAJZMVTLKJ5923-17-42 15:32:00 Test Item Value Reference Range Interpretation Comments Plt Morph (test code = Normal (12/29/17 9:32 Plt Morph) AM) [facility]ervilleQvkchyjVKXBTMEBQW9733-07-35 15:32:00 Test Item Value Reference Range Interpretation Comments RBC Morph (test code = Normal (12/29/17 9:32 RBC Morph) AM) [facility]ervilleVandxqhIPGJOJCTYM3048-23-06 15:32:00 Test Item Value Reference Range Interpretation Comments Plt Morph (test code = Normal (12/29/17 9:32 Plt Morph) AM) [facility]ervilleWmbeecvJLZWUDMRVW4739-82-30 15:32:00 Test Item Value Reference Range Interpretation Comments RBC Morph (test code = Normal (12/29/17 9:32 RBC Morph) AM) [facility]ervilleSmsvfjpWXFUMGLAMT7028-16-94 15:32:00 Test Item Value Reference Range Interpretation Comments Plt Morph (test code = Normal (12/29/17 9:32 Plt Morph) AM) [facility] [id number] 12:48:00 Test Item Value Reference Range Interpretation Comments Antibody Scrn (test Negative (12/27/17 6:48 code = Antibody Scrn) AM) [facility] [id number] 12:48:00 Test Item Value Reference Range Interpretation Comments ABO/Rh (test code = ABO/Rh) A NEG [facility] [id number] 12:48:00 Test Item Value Reference Range Interpretation Comments Antibody Scrn (test Negative (12/27/17 6:48 code = Antibody Scrn) AM) [facility] [id number] 12:48:00 Test Item Value Reference Range Interpretation Comments ABO/Rh (test code = ABO/Rh) A [facility] [id number] 12:48:00 Test Item Value Reference Range Interpretation Comments Antibody Scrn (test Negative (12/27/17 6:48 code = Antibody Scrn) AM) [facility] [id number] 12:48:00 Test Item Value Reference Range Interpretation Comments ABO/Rh (test code = ABO/Rh) A [facility] YHJSEMX2438-73-45 12:48:00 Test Item Value Reference Range Interpretation Comments Antibody Scrn (test Negative (12/27/17 6:48 code = Antibody Scrn) AM) [facility] [id number] 12:48:00 Test Item Value Reference Range Interpretation Comments ABO/Rh (test code = ABO/Rh) A [facility] [id number] 12:48:00 Test Item Value Reference Range Interpretation Comments Antibody Scrn (test Negative (12/27/17 6:48 code = Antibody Scrn) AM) [facility] [id number] 12:48:00 Test Item Value Reference Range Interpretation Comments ABO/Rh (test code = ABO/Rh) A [facility] [id number] 12:48:00 Test Item Value Reference Range Interpretation Comments Antibody Scrn (test Negative (12/27/17 6:48 code = Antibody Scrn) AM) [facility] HFNMCFM2466-09-57 12:48:00 Test Item Value Reference Range Interpretation Comments ABO/Rh (test code = ABO/Rh) A [facility] HMLAHDB9777-63-89 12:48:00 Test Item Value Reference Range Interpretation Comments Antibody Scrn (test Negative (12/27/17 6:48 code = Antibody Scrn) AM) [facility] [id number] 12:48:00 Test Item Value Reference Range Interpretation Comments ABO/Rh (test code = ABO/Rh) A [facility]2018-11-09 12:32:00 Test Item Value Reference Range Interpretation Comments PTT (test code = PTT) 22.9 s 22.9-35.8 [facility]ervilleZspqrshJCYBCZVAGW8379-73-06 12:32:00 Test Item Value Reference Range Interpretation Comments INR (test code = INR) 1.07 1 0.85-1.17 [facility]ervillePhhuafoEUMCMFTWBI6557-60-12 12:32:00 Test Item Value Reference Range Interpretation Comments PT (test code = PT) 13.9 s 12.0-14.7 [facility]ervilleNwjewbuGZMTFEQXVH8079-12-67 12:32:00 Test Item Value Reference Range Interpretation Comments PTT (test code = PTT) 22.9 s 22.9-35.8 [facility]ervilleNxgnitzASBAHAVRKH6987-36-26 12:32:00 Test Item Value Reference Range Interpretation Comments INR (test code = INR) 1.07 1 0.85-1.17 [facility]ervilleMkbizqaFNJIPKDFHP7281-24-16 12:32:00 Test Item Value Reference Range Interpretation Comments PT (test code = PT) 13.9 s 12.0-14.7 [facility]ervilleVrpcowkBAXFWIMEEA6918-64-32 12:32:00 Test Item Value Reference Range Interpretation Comments PTT (test code = PTT) 22.9 s 22.9-35.8 [facility]ervilleWsivepaXSLXKYOJYQ0256-75-11 12:32:00 Test Item Value Reference Range Interpretation Comments INR (test code = INR) 1.07 1 0.85-1.17 [facility]ervilleBazrlvrCBMIAOWDWB9708-39-23 12:32:00 Test Item Value Reference Range Interpretation Comments PT (test code = PT) 13.9 s 12.0-14.7 [facility]ervilleNakcytmMRKTKSWZTM2925-45-25 12:32:00 Test Item Value Reference Range Interpretation Comments PTT (test code = PTT) 22.9 s 22.9-35.8 [facility]ervilleFplxdsrMETLLHXLVL1637-47-62 12:32:00 Test Item Value Reference Range Interpretation Comments INR (test code = INR) 1.07 1 0.85-1.17 [facility]ervilleQwfnqytUUSOBSCVLK8987-90-93 12:32:00 Test Item Value Reference Range Interpretation Comments PT (test code = PT) 13.9 s 12.0-14.7 [facility]ervilleBpukqepPAGHTZYPNR6177-53-91 12:32:00 Test Item Value Reference Range Interpretation Comments PTT (test code = PTT) 22.9 s 22.9-35.8 [facility] CenterRuttznkFPKRHREVPV6316-38-22 12:32:00 Test Item Value Reference Range Interpretation Comments INR (test code = INR) 1.07 1 0.85-1.17 [facility] CenterCjwzvdaFCVHLOBZOI6337-51-73 12:32:00 Test Item Value Reference Range Interpretation Comments PT (test code = PT) 13.9 s 12.0-14.7 [facility] CenterDkjchiqETIKDBZWFB3317-17-67 12:32:00 Test Item Value Reference Range Interpretation Comments PTT (test code = PTT) 22.9 s 22.9-35.8 [facility]ervilleLzklupbLQRCEVHTBX9373-78-87 12:32:00 Test Item Value Reference Range Interpretation Comments INR (test code = INR) 1.07 1 0.85-1.17 [facility]ervilleLyvqwubWNJBNTMIUD7972-07-29 12:32:00 Test Item Value Reference Range Interpretation Comments PT (test code = PT) 13.9 s 12.0-14.7 [facility]ervilleGvylekeNQXSCPYUTL0637-11-19 12:32:00 Test Item Value Reference Range Interpretation Comments PTT (test code = PTT) 22.9 s 22.9-35.8 [facility]ervilleUbsahjlRXLMPPQJUX0099-65-64 12:32:00 Test Item Value Reference Range Interpretation Comments INR (test code = INR) 1.07 1 0.85-1.17 [facility]ervilleDgboqmaAPLUQZKKUP5768-79-70 12:32:00 Test Item Value Reference Range Interpretation Comments PT (test code = PT) 13.9 s 12.0-14.7 [facility] NYQMZSW2357-69-07 19:00:00 Test Item Value Reference Range Interpretation Comments BNP (test code = BNP) 82 [facility]annCHEM [id number] 19:00:00 Test Item Value Reference Range Interpretation Comments Bili Total (test code = Bili Total) 0.3 0.2-1.3 [facility] [id number] 19:00:00 Test Item Value Reference Range Interpretation Comments AST (test code = AST) 14 See_Comment [Auto mated message] The system which ge nerated this result transmit tino reference range : <=37. The reference range was not used to interpr et this result as debra l/abnormal. [facility]2018-10-29 19:00:00 Test Item Value Reference Range Interpretation Comments Alk Phos (test code = Alk Phos) 69 39-136 [facility]2018-10-29 19:00:00 Test Item Value Reference Range Interpretation Comments ALT (test code = ALT) 24 See_Comment [Auto mated message] The system which ge nerated this result transmit tino reference range : <=65. The reference range was not used to interpr et this result as debra l/abnormal. [facility]2018-10-29 19:00:00 Test Item Value Reference Range Interpretation Comments Albumin Lvl (test code = Albumin Lvl) 3.4 3.5-5.0 [facility]2018-10-29 19:00:00 Test Item Value Reference Range Interpretation Comments Total Protein (test code = Total 6.2 6.4-8.4 Protein) [facility]2018-10-29 19:00:00 Test Item Value Reference Range Interpretation Comments A/G Ratio (test code = A/G Ratio) 1.2 1 0.7-1.6 [facility]2018-10-29 19:00:00 Test Item Value Reference Range Interpretation Comments B/C Ratio (test code = B/C Ratio) 20 1 6-25 [facility]2018-10-29 19:00:00 Test Item Value Reference Range Interpretation Comments Globulin (test code = Globulin) 2.8 2.7-4.2 [facility] [id number] 19:00:00 Test Item Value Reference Range Interpretation Comments TEG Data (test code = See Note (12/16/17 2:00 TEG Data) PM) [facility] [place]ervilleHfmngdtGUJSJQMZIB0859-58-04 19:00:00 Test Item Value Reference Range Interpretation Comments K-time (test code = K-time) 1.2 min 1.0-3.0 [facility] [place]ervilleGzlyicvSRYMVHVNDW4803-89-12 19:00:00 Test Item Value Reference Range Interpretation Comments R-time (test code = R-time) 4.4 min 5.0-10.0 [facility] [place]ervilleKeucsmvZPIVEJSKIM2532-38-54 19:00:00 Test Item Value Reference Range Interpretation Comments Ly30 (test code = 0.0 See_Comment [Automate d message] The Ly30) system which ge nerated this result transmit tino reference range : <=7.5. The reference range was not used to interpr et this result as debra l/abnormal. [facility] CenterYogpsugSGDVVESQJY2735-82-41 19:00:00 Test Item Value Reference Range Interpretation Comments Coag Index (test code 2.6 1 See_Comment [Auto mated message] The = Coag Index) system which g enerated this result transmit tino reference range : <=3.0. The reference range was not used to interpr et this result as debra l/abnormal. [facility] CenterArccoptQMOKACWAOT6854-18-52 19:00:00 Test Item Value Reference Range Interpretation Comments G-value (test code = G-value) 10.1 4.5-11.0 [facility] CenterEzasmfgQCPNNYOKZY6146-86-71 19:00:00 Test Item Value Reference Range Interpretation Comments Angle (test code = Angle) 73.2 degrees 53.0-72.0 [facility] CenterJwvltipZBCKCBVUFV8021-59-97 19:00:00 Test Item Value Reference Range Interpretation Comments Max Amp (test code = Max Amp) 66.8 mm 50.0-70.0 [facility] CenterLorvxqeEPKUVTVXUX1386-70-86 19:00:00 Test Item Value Reference Range Interpretation Comments TEG Interp (test Thromboelastograph results code = TEG show shortened value of R Interp) and increased value of Angle Alpha. These findings are suggestive of enzymatic hypercoagulation. CPT:49268 [facility] CenterPqnejhnZBSHPWISUV0649-58-39 19:00:00 Test Item Value Reference Range Interpretation Comments Basophils # (test code 0.1 See_Comment [Aut omated message] The = Basophils #) system which generated this result tra nsmitted reference range : <=0.2. The reference r ryan was not used to int erpret this result as normal/abnormal . [facility] [id number] 19:00:00 Test Item Value Reference Range Interpretation Comments Hgb A1C (test code = Hgb A1C) 7.2 [facility] [id number] 19:00:00 Test Item Value Reference Range Interpretation Comments BNP (test code = BNP) 82 [facility] CenterCHEM [id number] 19:00:00 Test Item Value Reference Range Interpretation Comments Bili Total (test code = Bili Total) 0.3 0.2-1.3 [facility]2018-10-29 19:00:00 Test Item Value Reference Range Interpretation Comments AST (test code = AST) 14 See_Comment [Auto mated message] The system which ge nerated this result transmit tino reference range : <=37. The reference range was not used to interpr et this result as debra l/abnormal. [facility]2018-10-29 19:00:00 Test Item Value Reference Range Interpretation Comments Alk Phos (test code = Alk Phos) 69 39-136 [facility]2018-10-29 19:00:00 Test Item Value Reference Range Interpretation Comments ALT (test code = ALT) 24 See_Comment [Auto mated message] The system which ge nerated this result transmit tino reference range : <=65. The reference range was not used to interpr et this result as debra l/abnormal. [facility]2018-10-29 19:00:00 Test Item Value Reference Range Interpretation Comments Albumin Lvl (test code = Albumin Lvl) 3.4 3.5-5.0 [facility]2018-10-29 19:00:00 Test Item Value Reference Range Interpretation Comments Total Protein (test code = Total 6.2 6.4-8.4 Protein) [facility]2018-10-29 19:00:00 Test Item Value Reference Range Interpretation Comments A/G Ratio (test code = A/G Ratio) 1.2 1 0.7-1.6 [facility]2018-10-29 19:00:00 Test Item Value Reference Range Interpretation Comments B/C Ratio (test code = B/C Ratio) 20 1 6-25 [facility]2018-10-29 19:00:00 Test Item Value Reference Range Interpretation Comments Globulin (test code = Globulin) 2.8 2.7-4.2 [facility] [place]ervilleRsvhssmRXYBAPGGWH2599-05-22 19:00:00 Test Item Value Reference Range Interpretation Comments TEG Data (test code = See Note (12/16/17 2:00 TEG Data) PM) [facility]ervilleBqyyqwzVTZOUZGJKO6558-23-00 19:00:00 Test Item Value Reference Range Interpretation Comments K-time (test code = K-time) 1.2 min 1.0-3.0 [facility] [place]ervilleNzuukedLLCRRWSFNG7405-22-87 19:00:00 Test Item Value Reference Range Interpretation Comments R-time (test code = R-time) 4.4 min 5.0-10.0 [facility] [place]ervilleMkqzhpjZUTATPCQLI3635-65-82 19:00:00 Test Item Value Reference Range Interpretation Comments Ly30 (test code = 0.0 See_Comment [Automate d message] The Ly30) system which ge nerated this result transmit tino reference range : <=7.5. The reference range was not used to interpr et this result as debra l/abnormal. [facility]ervilleLhyddkxJUNNWVHHYT2404-19-51 19:00:00 Test Item Value Reference Range Interpretation Comments Coag Index (test code 2.6 1 See_Comment [Auto mated message] The = Coag Index) system which g enerated this result transmit tino reference range : <=3.0. The reference range was not used to interpr et this result as debra l/abnormal. [facility]ervilleBsucuvgKNCMTNHNGT3483-40-73 19:00:00 Test Item Value Reference Range Interpretation Comments G-value (test code = G-value) 10.1 4.5-11.0 [facility]ervilleVyqbhpcPXKGMSVJDX9029-60-38 19:00:00 Test Item Value Reference Range Interpretation Comments Angle (test code = Angle) 73.2 degrees 53.0-72.0 [facility]ervilleJvpiqyrBQYKWNYUCJ4840-82-34 19:00:00 Test Item Value Reference Range Interpretation Comments Max Amp (test code = Max Amp) 66.8 mm 50.0-70.0 [facility]ervilleJbjopcwODZUVGFOZQ2419-57-98 19:00:00 Test Item Value Reference Range Interpretation Comments TEG Interp (test Thromboelastograph results code = TEG show shortened value of R Interp) and increased value of Angle Alpha. These findings are suggestive of enzymatic hypercoagulation. CPT:97223 [facility] [place]ervilleIlpzjevOLUNCVHAES7742-87-46 19:00:00 Test Item Value Reference Range Interpretation Comments Basophils # (test code 0.1 See_Comment [Aut omated message] The = Basophils #) system which generated this result tra nsmitted reference range : <=0.2. The reference r ryan was not used to int erpret this result as normal/abnormal . [facility] [id number] 19:00:00 Test Item Value Reference Range Interpretation Comments Hgb A1C (test code = Hgb A1C) 7.2 [facility] CenterC[facility] [id number] 19:00:00 Test Item Value Reference Range Interpretation Comments BNP (test code = BNP) 82 [facility] [id number] 19:00:00 Test Item Value Reference Range Interpretation Comments Bili Total (test code = Bili Total) 0.3 0.2-1.3 [facility]2018-10-29 19:00:00 Test Item Value Reference Range Interpretation Comments AST (test code = AST) 14 See_Comment [Auto mated message] The system which ge nerated this result transmit tino reference range : <=37. The reference range was not used to interpr et this result as debra l/abnormal. [facility] CenterSIS [facility] Group [id number] 19:00:00 Test Item Value Reference Range Interpretation Comments Alk Phos (test code = Alk Phos) 69 39-136 [facility] [id number] 19:00:00 Test Item Value Reference Range Interpretation Comments ALT (test code = ALT) 24 See_Comment [Auto mated message] The system which ge nerated this result transmit tino reference range : <=65. The reference range was not used to interpr et this result as debra l/abnormal. [facility] [id number] 19:00:00 Test Item Value Reference Range Interpretation Comments Albumin Lvl (test code = Albumin Lvl) 3.4 3.5-5.0 [facility] [id number] 19:00:00 Test Item Value Reference Range Interpretation Comments Total Protein (test code = Total 6.2 6.4-8.4 Protein) [facility]2018-10-29 19:00:00 Test Item Value Reference Range Interpretation Comments A/G Ratio (test code = A/G Ratio) 1.2 1 0.7-1.6 [facility]2018-10-29 19:00:00 Test Item Value Reference Range Interpretation Comments B/C Ratio (test code = B/C Ratio) 20 1 6-25 [facility] [id number] 19:00:00 Test Item Value Reference Range Interpretation Comments Globulin (test code = Globulin) 2.8 2.7-4.2 [facility] [place]er[id number] 19:00:00 Test Item Value Reference Range Interpretation Comments TEG Data (test code = See Note (12/16/17 2:00 TEG Data) PM) [facility]er[id number] 19:00:00 Test Item Value Reference Range Interpretation Comments K-time (test code = K-time) 1.2 min 1.0-3.0 [facility]ervilleUqbtaxkDEEJWONFRV4804-70-98 19:00:00 Test Item Value Reference Range Interpretation Comments R-time (test code = R-time) 4.4 min 5.0-10.0 [facility] [place]ervilleXvsbtoeFGQJOTTCDL8244-55-35 19:00:00 Test Item Value Reference Range Interpretation Comments Ly30 (test code = 0.0 See_Comment [Automate d message] The Ly30) system which ge nerated this result transmit tino reference range : <=7.5. The reference range was not used to interpr et this result as debra l/abnormal. [facility]ervilleMeclsqwYXKVONMRHO7293-72-79 19:00:00 Test Item Value Reference Range Interpretation Comments Coag Index (test code 2.6 1 See_Comment [Auto mated message] The = Coag Index) system which g enerated this result transmit tino reference range : <=3.0. The reference range was not used to interpr et this result as debra l/abnormal. [facility][id number] 19:00:00 Test Item Value Reference Range Interpretation Comments G-value (test code = G-value) 10.1 4.5-11.0 [facility] [place]ervilleTwetofxSPPCWUFRMG4371-96-98 19:00:00 Test Item Value Reference Range Interpretation Comments Angle (test code = Angle) 73.2 degrees 53.0-72.0 [facility]er[id number] 19:00:00 Test Item Value Reference Range Interpretation Comments Max Amp (test code = Max Amp) 66.8 mm 50.0-70.0 [facility]ervil[id number] 19:00:00 Test Item Value Reference Range Interpretation Comments TEG Interp (test Thromboelastograph results code = TEG show shortened value of R Interp) and increased value of Angle Alpha. These findings are suggestive of enzymatic hypercoagulation. CPT:32404 [facility] CenterLyymlskRGFVAHYCZH8263-82-13 19:00:00 Test Item Value Reference Range Interpretation Comments Basophils # (test code 0.1 See_Comment [Aut omated message] The = Basophils #) system which generated this result tra nsmitted reference range : <=0.2. The reference r yran was not used to int erpret this result as normal/abnormal . [facility] [id number] 19:00:00 Test Item Value Reference Range Interpretation Comments Hgb A1C (test code = Hgb A1C) 7.2 [facility] CenterCARD[facility] [id number] 19:00:00 Test Item Value Reference Range Interpretation Comments BNP (test code = BNP) 82 [facility] CenterCHEM [id number] 19:00:00 Test Item Value Reference Range Interpretation Comments Bili Total (test code = Bili Total) 0.3 0.2-1.3 [facility] [id number] 19:00:00 Test Item Value Reference Range Interpretation Comments AST (test code = AST) 14 See_Comment [Auto mated message] The system which ge nerated this result transmit tino reference range : <=37. The reference range was not used to interpr et this result as debra l/abnormal. [facility] [id number] 19:00:00 Test Item Value Reference Range Interpretation Comments Alk Phos (test code = Alk Phos) 69 39-136 [facility] [id number] 19:00:00 Test Item Value Reference Range Interpretation Comments ALT (test code = ALT) 24 See_Comment [Auto mated message] The system which ge nerated this result transmit tino reference range : <=65. The reference range was not used to interpr et this result as debra l/abnormal. [facility] [id number] 19:00:00 Test Item Value Reference Range Interpretation Comments Albumin Lvl (test code = Albumin Lvl) 3.4 3.5-5.0 [facility] [id number] 19:00:00 Test Item Value Reference Range Interpretation Comments Total Protein (test code = Total 6.2 6.4-8.4 Protein) [facility] [id number] 19:00:00 Test Item Value Reference Range Interpretation Comments A/G Ratio (test code = A/G Ratio) 1.2 1 0.7-1.6 [facility]2018-10-29 19:00:00 Test Item Value Reference Range Interpretation Comments B/C Ratio (test code = B/C Ratio) 20 1 6-25 [facility]2018-10-29 19:00:00 Test Item Value Reference Range Interpretation Comments Globulin (test code = Globulin) 2.8 2.7-4.2 [facility][id number] 19:00:00 Test Item Value Reference Range Interpretation Comments TEG Data (test code = See Note (12/16/17 2:00 TEG Data) PM) [facility][id number] 19:00:00 Test Item Value Reference Range Interpretation Comments K-time (test code = K-time) 1.2 min 1.0-3.0 [facility] [place]ervilleJflfkooBIQGATHHJO4194-48-65 19:00:00 Test Item Value Reference Range Interpretation Comments R-time (test code = R-time) 4.4 min 5.0-10.0 [facility] [place]ervilleUcdhpbtHYBNGGUPFP6503-02-51 19:00:00 Test Item Value Reference Range Interpretation Comments Ly30 (test code = 0.0 See_Comment [Automate d message] The Ly30) system which ge nerated this result transmit tino reference range : <=7.5. The reference range was not used to interpr et this result as debra l/abnormal. [facility]ervil[id number] 19:00:00 Test Item Value Reference Range Interpretation Comments Coag Index (test code 2.6 1 See_Comment [Auto mated message] The = Coag Index) system which g enerated this result transmit tino reference range : <=3.0. The reference range was not used to interpr et this result as debra l/abnormal. [facility] [place]ervilleQmnteqxDGOJUBKGZB2830-07-01 19:00:00 Test Item Value Reference Range Interpretation Comments G-value (test code = G-value) 10.1 4.5-11.0 [facility] [place]er[id number] 19:00:00 Test Item Value Reference Range Interpretation Comments Angle (test code = Angle) 73.2 degrees 53.0-72.0 [facility] CenterDjoijfhTWXUDDNOYP4391-70-08 19:00:00 Test Item Value Reference Range Interpretation Comments Max Amp (test code = Max Amp) 66.8 mm 50.0-70.0 [facility] CenterSsuuwgsYBDISRKXEN4045-35-97 19:00:00 Test Item Value Reference Range Interpretation Comments TEG Interp (test Thromboelastograph results code = TEG show shortened value of R Interp) and increased value of Angle Alpha. These findings are suggestive of enzymatic hypercoagulation. CPT:24854 [facility] CenterPuyxguwQLOINOERVD7973-11-00 19:00:00 Test Item Value Reference Range Interpretation Comments Basophils # (test code 0.1 See_Comment [Aut omated message] The = Basophils #) system which generated this result tra nsmitted reference range : <=0.2. The reference r ryan was not used to int erpret this result as normal/abnormal . [facility] [id number] 19:00:00 Test Item Value Reference Range Interpretation Comments Hgb A1C (test code = Hgb A1C) 7.2 [facility] CenterCARD[facility]AC [id number] 19:00:00 Test Item Value Reference Range Interpretation Comments BNP (test code = BNP) 82 [facility]annCHEM [id number] 19:00:00 Test Item Value Reference Range Interpretation Comments Bili Total (test code = Bili Total) 0.3 0.2-1.3 [facility] CenterCHEM [id number] 19:00:00 Test Item Value Reference Range Interpretation Comments AST (test code = AST) 14 See_Comment [Auto mated message] The system which ge nerated this result transmit tino reference range : <=37. The reference range was not used to interpr et this result as debra l/abnormal. [facility] [employer] [id number] 19:00:00 Test Item Value Reference Range Interpretation Comments Alk Phos (test code = Alk Phos) 69 39-136 [facility] [id number] 19:00:00 Test Item Value Reference Range Interpretation Comments ALT (test code = ALT) 24 See_Comment [Auto mated message] The system which ge nerated this result transmit tino reference range : <=65. The reference range was not used to interpr et this result as debra l/abnormal. [facility]2018-10-29 19:00:00 Test Item Value Reference Range Interpretation Comments Albumin Lvl (test code = Albumin Lvl) 3.4 3.5-5.0 [facility]2018-10-29 19:00:00 Test Item Value Reference Range Interpretation Comments Total Protein (test code = Total 6.2 6.4-8.4 Protein) [facility]2018-10-29 19:00:00 Test Item Value Reference Range Interpretation Comments A/G Ratio (test code = A/G Ratio) 1.2 1 0.7-1.6 [facility]2018-10-29 19:00:00 Test Item Value Reference Range Interpretation Comments B/C Ratio (test code = B/C Ratio) 20 1 6-25 [facility]2018-10-29 19:00:00 Test Item Value Reference Range Interpretation Comments Globulin (test code = Globulin) 2.8 2.7-4.2 [facility][id number] 19:00:00 Test Item Value Reference Range Interpretation Comments TEG Data (test code = See Note (12/16/17 2:00 TEG Data) PM) [facility][id number] 19:00:00 Test Item Value Reference Range Interpretation Comments K-time (test code = K-time) 1.2 min 1.0-3.0 [facility]ervilleMlvpmonGRSCUZIXUS4330-20-04 19:00:00 Test Item Value Reference Range Interpretation Comments R-time (test code = R-time) 4.4 min 5.0-10.0 [facility]ervilleLaanmjwXCIEPETUNB1213-10-00 19:00:00 Test Item Value Reference Range Interpretation Comments Ly30 (test code = 0.0 See_Comment [Automate d message] The Ly30) system which ge nerated this result transmit tino reference range : <=7.5. The reference range was not used to interpr et this result as debra l/abnormal. [facility]ug[id number] 19:00:00 Test Item Value Reference Range Interpretation Comments Coag Index (test code 2.6 1 See_Comment [Auto mated message] The = Coag Index) system which g enerated this result transmit tino reference range : <=3.0. The reference range was not used to interpr et this result as debra l/abnormal. [facility] CenterPhdjmxpNJZNCSKYMS7225-55-72 19:00:00 Test Item Value Reference Range Interpretation Comments G-value (test code = G-value) 10.1 4.5-11.0 [facility] CenterUyermxzWBBRSRLDKV5217-23-93 19:00:00 Test Item Value Reference Range Interpretation Comments Angle (test code = Angle) 73.2 degrees 53.0-72.0 [facility] CenterInttgubMYSCLPCJLT2442-37-31 19:00:00 Test Item Value Reference Range Interpretation Comments Max Amp (test code = Max Amp) 66.8 mm 50.0-70.0 [facility] CenterOdsdyitMEOHCGWWDC6873-40-02 19:00:00 Test Item Value Reference Range Interpretation Comments TEG Interp (test Thromboelastograph results code = TEG show shortened value of R Interp) and increased value of Angle Alpha. These findings are suggestive of enzymatic hypercoagulation. CPT:86497 [facility] CenterVoksnhkPPJURKGRMQ1926-49-87 19:00:00 Test Item Value Reference Range Interpretation Comments Basophils # (test code 0.1 See_Comment [Aut omated message] The = Basophils #) system which generated this result tra nsmitted reference range : <=0.2. The reference r ryan was not used to int erpret this result as normal/abnormal . [facility] [id number] 19:00:00 Test Item Value Reference Range Interpretation Comments Hgb A1C (test code = Hgb A1C) 7.2 [facility] CenterC[facility]AC [id number] 19:00:00 Test Item Value Reference Range Interpretation Comments BNP (test code = BNP) 82 [facility] CenterCHEM [id number] 19:00:00 Test Item Value Reference Range Interpretation Comments Bili Total (test code = Bili Total) 0.3 0.2-1.3 [facility] CenterCHE[facility] [id number] 19:00:00 Test Item Value Reference Range Interpretation Comments AST (test code = AST) 14 See_Comment [Auto mated message] The system which ge nerated this result transmit tino reference range : <=37. The reference range was not used to interpr et this result as debra l/abnormal. [facility] CenterCHE[facility] [id number] 19:00:00 Test Item Value Reference Range Interpretation Comments Alk Phos (test code = Alk Phos) 69 39-136 [facility]2018-10-29 19:00:00 Test Item Value Reference Range Interpretation Comments ALT (test code = ALT) 24 See_Comment [Auto mated message] The system which ge nerated this result transmit tino reference range : <=65. The reference range was not used to interpr et this result as debra l/abnormal. [facility]2018-10-29 19:00:00 Test Item Value Reference Range Interpretation Comments Albumin Lvl (test code = Albumin Lvl) 3.4 3.5-5.0 [facility] [facility]2018-[facility] 19:00:00 Test Item Value Reference Range Interpretation Comments Total Protein (test code = Total 6.2 6.4-8.4 Protein) [facility]2018-10-29 19:00:00 Test Item Value Reference Range Interpretation Comments A/G Ratio (test code = A/G Ratio) 1.2 1 0.7-1.6 [facility]2018-10-29 19:00:00 Test Item Value Reference Range Interpretation Comments B/C Ratio (test code = B/C Ratio) 20 1 6-25 [facility]2018-10-29 19:00:00 Test Item Value Reference Range Interpretation Comments Globulin (test code = Globulin) 2.8 2.7-4.2 [facility] [place]rfnwmpNIDYBVKDPN0605-86-94 19:00:00 Test Item Value Reference Range Interpretation Comments TEG Data (test code = See Note (12/16/17 2:00 TEG Data) PM) [facility] [place]ZzqwxkuXTNBSGNSBO1243-38-60 19:00:00 Test Item Value Reference Range Interpretation Comments K-time (test code = K-time) 1.2 min 1.0-3.0 [facility] [place]XqtqskcGSZXEBVDDK7975-36-87 19:00:00 Test Item Value Reference Range Interpretation Comments R-time (test code = R-time) 4.4 min 5.0-10.0 [facility] [place]RvqbtkmNHVVRFULSO9229-16-44 19:00:00 Test Item Value Reference Range Interpretation Comments Ly30 (test code = 0.0 See_Comment [Automate d message] The Ly30) system which ge nerated this result transmit tino reference range : <=7.5. The reference range was not used to interpr et this result as debra l/abnormal. [facility]FclbjomLINAZUEMMT0601-60-28 19:00:00 Test Item Value Reference Range Interpretation Comments Coag Index (test code 2.6 1 See_Comment [Auto mated message] The = Coag Index) system which g enerated this result transmit tino reference range : <=3.0. The reference range was not used to interpr et this result as debra l/abnormal. [facility] CenterZaasgtsVIIXNHWCTW9686-99-49 19:00:00 Test Item Value Reference Range Interpretation Comments G-value (test code = G-value) 10.1 4.5-11.0 [facility] CenterXiosngmOVMPCIFXRQ3745-32-00 19:00:00 Test Item Value Reference Range Interpretation Comments Angle (test code = Angle) 73.2 degrees 53.0-72.0 [facility] CenterTtlwnxkTKUYZKVPDH6150-54-21 19:00:00 Test Item Value Reference Range Interpretation Comments Max Amp (test code = Max Amp) 66.8 mm 50.0-70.0 [facility] CenterIfdilrxJTWWJOWUTM5016-25-72 19:00:00 Test Item Value Reference Range Interpretation Comments TEG Interp (test Thromboelastograph results code = TEG show shortened value of R Interp) and increased value of Angle Alpha. These findings are suggestive of enzymatic hypercoagulation. CPT:11840 [facility] [place]JtbxskdLUOERRMDWT0332-96-29 19:00:00 Test Item Value Reference Range Interpretation Comments Basophils # (test code 0.1 See_Comment [Aut omated message] The = Basophils #) system which generated this result tra nsmitted reference range : <=0.2. The reference r ryan was not used to int erpret this result as normal/abnormal . [facility] LZNNDLRXM3826-62-27 19:00:00 Test Item Value Reference Range Interpretation Comments Hgb A1C (test code = Hgb A1C) 7.2 [facility] CenterCARD[facility]AC TNKNPSV5611-61-21 19:00:00 Test Item Value Reference Range Interpretation Comments BNP (test code = BNP) 82 [facility] CenterCHEM SPKEG8034-93-77 19:00:00 Test Item Value Reference Range Interpretation Comments Bili Total (test code = Bili Total) 0.3 0.2-1.3 [facility]2018-10-29 19:00:00 Test Item Value Reference Range Interpretation Comments AST (test code = AST) 14 See_Comment [Auto mated message] The system which ge nerated this result transmit tino reference range : <=37. The reference range was not used to interpr et this result as debra l/abnormal. [facility]2018-10-29 19:00:00 Test Item Value Reference Range Interpretation Comments Alk Phos (test code = Alk Phos) 69 39-136 [facility]2018-10-29 19:00:00 Test Item Value Reference Range Interpretation Comments ALT (test code = ALT) 24 See_Comment [Auto mated message] The system which ge nerated this result transmit tino reference range : <=65. The reference range was not used to interpr et this result as debra l/abnormal. [facility]2018-10-29 19:00:00 Test Item Value Reference Range Interpretation Comments Albumin Lvl (test code = Albumin Lvl) 3.4 3.5-5.0 [facility]2018-10-29 19:00:00 Test Item Value Reference Range Interpretation Comments Total Protein (test code = Total 6.2 6.4-8.4 Protein) [facility]2018-10-29 19:00:00 Test Item Value Reference Range Interpretation Comments A/G Ratio (test code = A/G Ratio) 1.2 1 0.7-1.6 [facility]2018-10-29 19:00:00 Test Item Value Reference Range Interpretation Comments B/C Ratio (test code = B/C Ratio) 20 1 6-25 [facility]2018-10-29 19:00:00 Test Item Value Reference Range Interpretation Comments Globulin (test code = Globulin) 2.8 2.7-4.2 [facility] [place]CjankktMLQAHTUUNN6292-07-28 19:00:00 Test Item Value Reference Range Interpretation Comments TEG Data (test code = See Note (12/16/17 2:00 TEG Data) PM) [facility] [place]UyhcjrtSHXMBSCGGQ6127-93-40 19:00:00 Test Item Value Reference Range Interpretation Comments K-time (test code = K-time) 1.2 min 1.0-3.0 [facility] [place]IkywkbqRZLHTWJVCZ2224-80-80 19:00:00 Test Item Value Reference Range Interpretation Comments R-time (test code = R-time) 4.4 min 5.0-10.0 [facility] [place]EzsfdgzKAVZFQWWSB5971-31-27 19:00:00 Test Item Value Reference Range Interpretation Comments Ly30 (test code = 0.0 See_Comment [Automate d message] The Ly30) system which ge nerated this result transmit tino reference range : <=7.5. The reference range was not used to interpr et this result as debra l/abnormal. [facility] [place]QrlsevrWPHGUNPUAI9041-28-09 19:00:00 Test Item Value Reference Range Interpretation Comments Coag Index (test code 2.6 1 See_Comment [Auto mated message] The = Coag Index) system which g enerated this result transmit tino reference range : <=3.0. The reference range was not used to interpr et this result as debra l/abnormal. [facility] [place]CpfzzkcTYCSTKBFDK4268-81-47 19:00:00 Test Item Value Reference Range Interpretation Comments G-value (test code = G-value) 10.1 4.5-11.0 [facility] [place]SrgsfizHBOSFQATSE2060-13-14 19:00:00 Test Item Value Reference Range Interpretation Comments Angle (test code = Angle) 73.2 degrees 53.0-72.0 [facility] [place]KnfmuviQVINGQFUPC3076-95-71 19:00:00 Test Item Value Reference Range Interpretation Comments Max Amp (test code = Max Amp) 66.8 mm 50.0-70.0 [facility] [place]LtlnsnrZZWIFXVTUC7395-82-92 19:00:00 Test Item Value Reference Range Interpretation Comments TEG Interp (test Thromboelastograph results code = TEG show shortened value of R Interp) and increased value of Angle Alpha. These findings are suggestive of enzymatic hypercoagulation. CPT:39951 [facility] [place]ervilleZwmacecGZOBBJXAGL5899-20-05 19:00:00 Test Item Value Reference Range Interpretation Comments Basophils # (test code 0.1 See_Comment [Aut omated message] The = Basophils #) system which generated this result tra nsmitted reference range : <=0.2. The reference r ryan was not used to int erpret this result as normal/abnormal . [facility] TSPELBRFV4644-22-54 19:00:00 Test Item Value Reference Range Interpretation Comments Hgb A1C (test code = Hgb A1C) 7.2 [facility] [place]DpdlvlrECWJWPNOES0497-70-51 20:22:00 Test Item Value Reference Range Interpretation Comments Eosinophils # (test code 0.3 See_Comment [A utomated message] The = Eosinophils #) system whic h generated this result tra nsmitted reference range : <=0.5. The reference r ryan was not used to int erpret this result as normal/abnormal . [facility] [place]UrescplFBFDUQECGH5921-40-70 20:22:00 Test Item Value Reference Range Interpretation Comments Monocytes # (test code 0.8 See_Comment [Aut omated message] The = Monocytes #) system which generated this result tra nsmitted reference range : <=0.8. The reference r ryan was not used to int erpret this result as normal/abnormal . [facility] [place]QtctgmdUCSIANXVYI8235-17-23 20:22:00 Test Item Value Reference Range Interpretation Comments Segs-Bands # (test code = Segs-Bands #) 9.5 1.5-8.1 [facility] [place]ZwttysuPPVFKUFFOD5935-75-86 20:22:00 Test Item Value Reference Range Interpretation Comments Lymphocytes # (test code = Lymphocytes 4.7 1.0-5.5 #) [facility] [place]AxgzsqfKVUIIVQBZG5635-22-75 20:22:00 Test Item Value Reference Range Interpretation Comments MCH (test code = MCH) 30.9 pg 27.0-31.0 [facility] [place]MgygonaHMPDOAHTKR5184-24-06 20:22:00 Test Item Value Reference Range Interpretation Comments Hct (test code = Hct) 36.3 42.0-54.0 [facility] [place]EervdriWZISBEQHQJ5861-30-46 20:22:00 Test Item Value Reference Range Interpretation Comments MPV (test code = MPV) 7.8 7.4-10.4 [facility] [place]IgqjfzmUUADDEJAYH9313-17-18 20:22:00 Test Item Value Reference Range Interpretation Comments Platelet (test code = Platelet) 194 133-450 [facility] [place]YsqxljpETTKXQPQQA3028-58-80 20:22:00 Test Item Value Reference Range Interpretation Comments MCHC (test code = MCHC) 33.6 32.0-36.0 [facility] [place]JwoewpyLAHYZHXUYY4619-68-42 20:22:00 Test Item Value Reference Range Interpretation Comments RDW (test code = RDW) 13.3 11.5-14.5 [facility] [place]RgiefixNAIAHNICZV6503-09-72 20:22:00 Test Item Value Reference Range Interpretation Comments RBC (test code = RBC) 3.95 4.70-6.10 [facility] [place]ervilleSledwkbKAJSSPEWWO7554-20-48 20:22:00 Test Item Value Reference Range Interpretation Comments MCV (test code = MCV) 92.0 80.0-94.0 [place] 875716-03-18 20:22:00 Test Item Value Reference Range Interpretation Comments Hgb (test code = Hgb) 12.2 14.0-18.0 [place] [address]-03-18 20:22:00 Test Item Value Reference Range Interpretation Comments WBC (test code = WBC) 15.6 3.7-10.4 [facility]2016-03-18 20:22:00 Test Item Value Reference Range Interpretation Comments eGFR (test code = eGFR) 70 [facility]2016-03-18 20:22:00 Test Item Value Reference Range Interpretation Comments Creatinine Lvl (test code = Creatinine 1.07 0.50-1.40 Lvl) [facility]2016-03-18 20:22:00 Test Item Value Reference Range Interpretation Comments Chloride Lvl (test code = Chloride Lvl) 104 95-109 [facility]2016-03-18 20:22:00 Test Item Value Reference Range Interpretation Comments Potassium Lvl (test code = Potassium 4.4 3.5-5.1 Lvl) [facility]2016-03-18 20:22:00 Test Item Value Reference Range Interpretation Comments Calcium Lvl (test code = Calcium Lvl) 7.8 8.5-10.5 [facility]2016-03-18 20:22:00 Test Item Value Reference Range Interpretation Comments CO2 (test code = CO2) 28 24-32 [facility]2016-03-18 20:22:00 Test Item Value Reference Range Interpretation Comments Sodium Lvl (test code = Sodium Lvl) 139 135-145 [place] 520356-03-18 20:22:00 Test Item Value Reference Range Interpretation Comments BUN (test code = BUN) 27 7-22 [facility]2016-03-18 20:22:00 Test Item Value Reference Range Interpretation Comments Glucose Lvl (test code = Glucose Lvl) 148 70-99 [facility]2016-03-18 20:22:00 Test Item Value Reference Range Interpretation Comments AGAP (test code = AGAP) 11.4 10.0-20.0 [facility] [place]ervilleBdgebciQHXLEAHHPV4607-01-17 20:22:00 Test Item Value Reference Range Interpretation Comments Plt Morph (test code = Normal (05/06/15 3:22 Plt Morph) PM) [facility] [place]ervilleCedbrlrGABEHRATWW0641-44-06 20:22:00 Test Item Value Reference Range Interpretation Comments RBC Morph (test code = Normal (05/06/15 3:22 RBC Morph) PM) [facility] [place]YcwcdwlFRODRIMPAN4632-26-03 20:22:00 Test Item Value Reference Range Interpretation Comments Basophils (test code = 1.0 See_Comment [Aut omated message] The Basophils) system which ge nerated this result tra nsmitted reference range : <=1.0. The reference r ryan was not used to int erpret this result as normal/abnormal . [facility] [place]YunhtecAGOMJHNRRD7315-83-08 20:22:00 Test Item Value Reference Range Interpretation Comments Eosinophils (test code = 2.0 See_Comment [A utomated message] The Eosinophils) system which ge nerated this result tra nsmitted reference range : <=4.0. The reference r ryan was not used to int erpret this result as normal/abnormal . [facility] [place]UxpfbxoIXIJLMWVUN1895-36-12 20:22:00 Test Item Value Reference Range Interpretation Comments Atypical Lymphs (test code = Atypical 0.0 Lymphs) [facility] [place]CdmanhfMPYTDPFYUC2404-14-04 20:22:00 Test Item Value Reference Range Interpretation Comments Myelocytes (test code = Myelocytes) 1.0 [facility] [place]ervilleHchfgofDHQRXAQURM1791-61-08 20:22:00 Test Item Value Reference Range Interpretation Comments Bands (test code = 0.0 See_Comment [Automat ed message] The Bands) system which ge nerated this result transmit tino reference range : <=11.0. The reference r ryan was not used to interpr et this result as debra l/abnormal. [facility] [place]AdzyepoSCCJHSEAMQ1255-40-26 20:22:00 Test Item Value Reference Range Interpretation Comments Segs (test code = Segs) 61.0 45.0-75.0 [facility] [place]AmsavmjVMBQNZIRCP3746-95-34 20:22:00 Test Item Value Reference Range Interpretation Comments Monocytes (test code = Monocytes) 5.0 2.0-12.0 [facility] [place]ervilleEyeaysqLUBWKQZSQI7619-56-23 20:22:00 Test Item Value Reference Range Interpretation Comments Lymphocytes (test code = Lymphocytes) 30.0 20.0-40.0 [facility] [place]QakwdgqGSFHZSBTHR1549-12-72 20:22:00 Test Item Value Reference Range Interpretation Comments Basophils # (test code 0.2 See_Comment [Aut omated message] The = Basophils #) system which generated this result tra nsmitted reference range : <=0.2. The reference r ryan was not used to int erpret this result as normal/abnormal . [facility] [place]ervilleAtynubnRZFBNCIMES3220-49-53 20:22:00 Test Item Value Reference Range Interpretation Comments Eosinophils # (test code 0.3 See_Comment [A utomated message] The = Eosinophils #) system whic h generated this result tra nsmitted reference range : <=0.5. The reference r ryan was not used to int erpret this result as normal/abnormal . [facility] [place]ervillePashgsnJWTGJZJHBS4626-37-88 20:22:00 Test Item Value Reference Range Interpretation Comments Monocytes # (test code 0.8 See_Comment [Aut omated message] The = Monocytes #) system which generated this result tra nsmitted reference range : <=0.8. The reference r ryan was not used to int erpret this result as normal/abnormal . [facility] [place]ervilleCtigeaoABVEYXQYDQ5768-79-42 20:22:00 Test Item Value Reference Range Interpretation Comments Segs-Bands # (test code = Segs-Bands #) 9.5 1.5-8.1 [facility] [place]NgfjbdqNSZKNDRWDZ4192-26-78 20:22:00 Test Item Value Reference Range Interpretation Comments Lymphocytes # (test code = Lymphocytes 4.7 1.0-5.5 #) [facility] [place]OxqfmqtCPWGBWAAQT8376-23-35 20:22:00 Test Item Value Reference Range Interpretation Comments MCH (test code = MCH) 30.9 pg 27.0-31.0 [facility] [place]OyajdbbTBQUMNMUGH1455-35-06 20:22:00 Test Item Value Reference Range Interpretation Comments Hct (test code = Hct) 36.3 42.0-54.0 [facility] [place]PhbxywfTKDNWCBJSM3208-75-48 20:22:00 Test Item Value Reference Range Interpretation Comments MPV (test code = MPV) 7.8 7.4-10.4 [facility] [place]AmeabpoJNTIGTGBAZ8661-34-21 20:22:00 Test Item Value Reference Range Interpretation Comments Platelet (test code = Platelet) 194 133-450 [facility] [place]ervilleWumeanhXNUTBCEQYV4601-35-09 20:22:00 Test Item Value Reference Range Interpretation Comments MCHC (test code = MCHC) 33.6 32.0-36.0 [facility] [place]EfocmjiRMFHUOAWBW2605-65-90 20:22:00 Test Item Value Reference Range Interpretation Comments RDW (test code = RDW) 13.3 11.5-14.5 [facility] [place]ByuxkqkSWYHSPJQOS0309-32-34 20:22:00 Test Item Value Reference Range Interpretation Comments RBC (test code = RBC) 3.95 4.70-6.10 [facility] [place]UokcdqbBBQNMZQUAF6965-35-99 20:22:00 Test Item Value Reference Range Interpretation Comments MCV (test code = MCV) 92.0 80.0-94.0 [facility] [place]PnmhjzqQASHRQAYYA6043-01-13 20:22:00 Test Item Value Reference Range Interpretation Comments Hgb (test code = Hgb) 12.2 14.0-18.0 [facility] [place]ervilleUmapgbcDYUEUXHSZK5485-18-25 20:22:00 Test Item Value Reference Range Interpretation Comments WBC (test code = WBC) 15.6 3.7-10.4 [facility]2016-03-18 20:22:00 Test Item Value Reference Range Interpretation Comments eGFR (test code = eGFR) 70 [facility]2016-03-18 20:22:00 Test Item Value Reference Range Interpretation Comments Creatinine Lvl (test code = Creatinine 1.07 0.50-1.40 Lvl) [facility]2016-03-18 20:22:00 Test Item Value Reference Range Interpretation Comments Chloride Lvl (test code = Chloride Lvl) 104 95-109 [facility]2016-03-18 20:22:00 Test Item Value Reference Range Interpretation Comments Potassium Lvl (test code = Potassium 4.4 3.5-5.1 Lvl) [facility]2016-03-18 20:22:00 Test Item Value Reference Range Interpretation Comments Calcium Lvl (test code = Calcium Lvl) 7.8 8.5-10.5 [facility]2016-03-18 20:22:00 Test Item Value Reference Range Interpretation Comments CO2 (test code = CO2) 28 24-32 [facility]2016-03-18 20:22:00 Test Item Value Reference Range Interpretation Comments Sodium Lvl (test code = Sodium Lvl) 139 135-145 [facility]2016-03-18 20:22:00 Test Item Value Reference Range Interpretation Comments BUN (test code = BUN) 27 7-22 [facility]2016-03-18 20:22:00 Test Item Value Reference Range Interpretation Comments Glucose Lvl (test code = Glucose Lvl) 148 70-99 [facility]2016-03-18 20:22:00 Test Item Value Reference Range Interpretation Comments AGAP (test code = AGAP) 11.4 10.0-20.0 [facility] [place]JfpxjopPIJXWSSRQE5475-67-02 20:22:00 Test Item Value Reference Range Interpretation Comments Plt Morph (test code = Normal (05/06/15 3:22 Plt Morph) PM) [facility]EocpyuzNDLZNYLVJO7074-65-38 20:22:00 Test Item Value Reference Range Interpretation Comments RBC Morph (test code = Normal (05/06/15 3:22 RBC Morph) PM) [facility] [place]ervilleTgeklcmBRXRALLVNB9186-34-77 20:22:00 Test Item Value Reference Range Interpretation Comments Basophils (test code = 1.0 See_Comment [Aut omated message] The Basophils) system which ge nerated this result tra nsmitted reference range : <=1.0. The reference r ryan was not used to int erpret this result as normal/abnormal . [facility]ervilleErkxckvAEHNXWRMQM2157-06-74 20:22:00 Test Item Value Reference Range Interpretation Comments Eosinophils (test code = 2.0 See_Comment [A utomated message] The Eosinophils) system which ge nerated this result tra nsmitted reference range : <=4.0. The reference r ryan was not used to int erpret this result as normal/abnormal . [facility]ervilleFzlaljbOQMGJSZCYP9014-17-77 20:22:00 Test Item Value Reference Range Interpretation Comments Atypical Lymphs (test code = Atypical 0.0 Lymphs) [place] 875716-03-18 20:22:00 Test Item Value Reference Range Interpretation Comments Myelocytes (test code = Myelocytes) 1.0 [facility] [place]ervilleAaonecnZUSTOHDXKE9449-43-44 20:22:00 Test Item Value Reference Range Interpretation Comments Bands (test code = 0.0 See_Comment [Automat ed message] The Bands) system which ge nerated this result transmit tino reference range : <=11.0. The reference r ryan was not used to interpr et this result as debra l/abnormal. [facility] [place]ervilleCidxqhkBQTVPNGKLM9819-93-62 20:22:00 Test Item Value Reference Range Interpretation Comments Segs (test code = Segs) 61.0 45.0-75.0 [facility] [place]ervilleEbgmirsLJJWURWDGG4125-79-72 20:22:00 Test Item Value Reference Range Interpretation Comments Monocytes (test code = Monocytes) 5.0 2.0-12.0 [facility] [place]ervilleJsjnqmfZOCHGYPMIE4963-48-01 20:22:00 Test Item Value Reference Range Interpretation Comments Lymphocytes (test code = Lymphocytes) 30.0 20.0-40.0 [facility] [place]ervilleQzmsrplKVHHCBPYEE8666-39-08 20:22:00 Test Item Value Reference Range Interpretation Comments Basophils # (test code 0.2 See_Comment [Aut omated message] The = Basophils #) system which generated this result tra nsmitted reference range : <=0.2. The reference r ryan was not used to int erpret this result as normal/abnormal . [facility] [place]ervilleQialzwgLMSLXBUYEQ1695-82-74 20:22:00 Test Item Value Reference Range Interpretation Comments Eosinophils # (test code 0.3 See_Comment [A utomated message] The = Eosinophils #) system whic h generated this result tra nsmitted reference range : <=0.5. The reference r ryan was not used to int erpret this result as normal/abnormal . [facility] [place]ervilleXyzewmrZWNPACMXGE5530-00-28 20:22:00 Test Item Value Reference Range Interpretation Comments Monocytes # (test code 0.8 See_Comment [Aut omated message] The = Monocytes #) system which generated this result tra nsmitted reference range : <=0.8. The reference r ryan was not used to int erpret this result as normal/abnormal . [place] 875716-03-18 20:22:00 Test Item Value Reference Range Interpretation Comments Segs-Bands # (test code = Segs-Bands #) 9.5 1.5-8.1 [facility] [place]ervilleWgtrjqjJNQNMKYAXG8853-49-38 20:22:00 Test Item Value Reference Range Interpretation Comments Lymphocytes # (test code = Lymphocytes 4.7 1.0-5.5 #) [facility] [facility]PbwneybZJREYNMTRO5032-80-21 20:22:00 Test Item Value Reference Range Interpretation Comments MCH (test code = MCH) 30.9 pg 27.0-31.0 [facility] [place]ZmfgllaIGOSDOZPFQ5229-21-99 20:22:00 Test Item Value Reference Range Interpretation Comments Hct (test code = Hct) 36.3 42.0-54.0 [facility] [place]OfkroomWVKFOQYSOQ4847-16-65 20:22:00 Test Item Value Reference Range Interpretation Comments MPV (test code = MPV) 7.8 7.4-10.4 [facility] [place]DdrbygnPWOSVPIOOA8866-27-64 20:22:00 Test Item Value Reference Range Interpretation Comments Platelet (test code = Platelet) 194 133-450 [facility] [place]LxlnyplVIIXPSVLZJ5201-02-19 20:22:00 Test Item Value Reference Range Interpretation Comments MCHC (test code = MCHC) 33.6 32.0-36.0 [facility] [place]ErmxexzXPIQLPAEAC2220-16-52 20:22:00 Test Item Value Reference Range Interpretation Comments RDW (test code = RDW) 13.3 11.5-14.5 [facility] [place]CijjeufAUEEKIJVQT8225-48-30 20:22:00 Test Item Value Reference Range Interpretation Comments RBC (test code = RBC) 3.95 4.70-6.10 [facility] [place]DiamddpQOAQVKRNMC3884-39-18 20:22:00 Test Item Value Reference Range Interpretation Comments MCV (test code = MCV) 92.0 80.0-94.0 [facility] [place]XijskorSFKSXYTPXQ8446-25-18 20:22:00 Test Item Value Reference Range Interpretation Comments Hgb (test code = Hgb) 12.2 14.0-18.0 [facility] [place]LmjykamAHOUYZYGSQ1034-35-87 20:22:00 Test Item Value Reference Range Interpretation Comments WBC (test code = WBC) 15.6 3.7-10.4 [facility]2016-03-18 20:22:00 Test Item Value Reference Range Interpretation Comments eGFR (test code = eGFR) 70 [facility]2016-03-18 20:22:00 Test Item Value Reference Range Interpretation Comments Creatinine Lvl (test code = Creatinine 1.07 0.50-1.40 Lvl) [facility]2016-03-18 20:22:00 Test Item Value Reference Range Interpretation Comments Chloride Lvl (test code = Chloride Lvl) 104 95-109 [facility]2016-03-18 20:22:00 Test Item Value Reference Range Interpretation Comments Potassium Lvl (test code = Potassium 4.4 3.5-5.1 Lvl) [facility]2016-03-18 20:22:00 Test Item Value Reference Range Interpretation Comments Calcium Lvl (test code = Calcium Lvl) 7.8 8.5-10.5 [facility]2016-03-18 20:22:00 Test Item Value Reference Range Interpretation Comments CO2 (test code = CO2) 28 24-32 [facility]2016-03-18 20:22:00 Test Item Value Reference Range Interpretation Comments Sodium Lvl (test code = Sodium Lvl) 139 135-145 [facility]2016-03-18 20:22:00 Test Item Value Reference Range Interpretation Comments BUN (test code = BUN) 27 7-22 [facility]2016-03-18 20:22:00 Test Item Value Reference Range Interpretation Comments Glucose Lvl (test code = Glucose Lvl) 148 70-99 [facility]2016-03-18 20:22:00 Test Item Value Reference Range Interpretation Comments AGAP (test code = AGAP) 11.4 10.0-20.0 [facility] [place]XdwqdgbMZPMQZOQCK9532-49-41 20:22:00 Test Item Value Reference Range Interpretation Comments Plt Morph (test code = Normal (05/06/15 3:22 Plt Morph) PM) [facility] [place]BfxwxkeWKGFAJZECT5210-41-28 20:22:00 Test Item Value Reference Range Interpretation Comments RBC Morph (test code = Normal (05/06/15 3:22 RBC Morph) PM) [facility] [place]VlfcbcxLTDBQGIOIT4352-03-25 20:22:00 Test Item Value Reference Range Interpretation Comments Basophils (test code = 1.0 See_Comment [Aut omated message] The Basophils) system which ge nerated this result tra nsmitted reference range : <=1.0. The reference r ryan was not used to int erpret this result as normal/abnormal . [facility] [place]OoxwyulPYBLLDHWGK8756-64-73 20:22:00 Test Item Value Reference Range Interpretation Comments Eosinophils (test code = 2.0 See_Comment [A utomated message] The Eosinophils) system which ge nerated this result tra nsmitted reference range : <=4.0. The reference r ryan was not used to int erpret this result as normal/abnormal . [facility] [place]JuefjyuDYCSTGMAHU1881-66-36 20:22:00 Test Item Value Reference Range Interpretation Comments Atypical Lymphs (test code = Atypical 0.0 Lymphs) [facility] [place]ZuvxlfdFFAQGAEEYS5517-91-23 20:22:00 Test Item Value Reference Range Interpretation Comments Myelocytes (test code = Myelocytes) 1.0 [facility] [place]BkhtasgGBXSUAGWUM7534-91-48 20:22:00 Test Item Value Reference Range Interpretation Comments Bands (test code = 0.0 See_Comment [Automat ed message] The Bands) system which ge nerated this result transmit tino reference range : <=11.0. The reference r ryan was not used to interpr et this result as debra l/abnormal. [facility] [place]MtcoxxhPLCMYMDXVF1253-95-76 20:22:00 Test Item Value Reference Range Interpretation Comments Segs (test code = Segs) 61.0 45.0-75.0 [facility] [place]DzcnlktNWKOZIQKIV7675-50-73 20:22:00 Test Item Value Reference Range Interpretation Comments Monocytes (test code = Monocytes) 5.0 2.0-12.0 [facility] [place]TiehalcHREQQMQRDW7070-64-54 20:22:00 Test Item Value Reference Range Interpretation Comments Lymphocytes (test code = Lymphocytes) 30.0 20.0-40.0 [facility] [place]FvggotfHKNUFEKKHB1095-22-46 20:22:00 Test Item Value Reference Range Interpretation Comments Basophils # (test code 0.2 See_Comment [Aut omated message] The = Basophils #) system which generated this result tra nsmitted reference range : <=0.2. The reference r ryan was not used to int erpret this result as normal/abnormal . [facility] [place]HnczeccFTHHDFDDLJ8166-17-83 20:22:00 Test Item Value Reference Range Interpretation Comments Eosinophils # (test code 0.3 See_Comment [A utomated message] The = Eosinophils #) system whic h generated this result tra nsmitted reference range : <=0.5. The reference r ryan was not used to int erpret this result as normal/abnormal . [facility] [place]FkypgndTYBHFJIAEN6798-47-89 20:22:00 Test Item Value Reference Range Interpretation Comments Monocytes # (test code 0.8 See_Comment [Aut omated message] The = Monocytes #) system which generated this result tra nsmitted reference range : <=0.8. The reference r ryan was not used to int erpret this result as normal/abnormal . [facility] [place]HrhruyrZPHBFNNXMD5572-48-88 20:22:00 Test Item Value Reference Range Interpretation Comments Segs-Bands # (test code = Segs-Bands #) 9.5 1.5-8.1 [facility] [place]SntxgryFYMODOWHSD9214-26-30 20:22:00 Test Item Value Reference Range Interpretation Comments Lymphocytes # (test code = Lymphocytes 4.7 1.0-5.5 #) [facility] [place]DfkzsxnFOOFTYEGZC0667-98-86 20:22:00 Test Item Value Reference Range Interpretation Comments MCH (test code = MCH) 30.9 pg 27.0-31.0 [facility] [place]JjvuzinGURWIVPESL2885-74-42 20:22:00 Test Item Value Reference Range Interpretation Comments Hct (test code = Hct) 36.3 42.0-54.0 [facility] [place]IgniajdWLOQFCVTKO6261-67-88 20:22:00 Test Item Value Reference Range Interpretation Comments MPV (test code = MPV) 7.8 7.4-10.4 [facility] [place]VqdqwhyZAVDYEPTWM8750-08-11 20:22:00 Test Item Value Reference Range Interpretation Comments Platelet (test code = Platelet) 194 133-450 [facility] [place]WuryoqgGPREWASRKR0639-43-02 20:22:00 Test Item Value Reference Range Interpretation Comments MCHC (test code = MCHC) 33.6 32.0-36.0 [facility] [place]ZizkimkXOHCGTGBRW7925-50-22 20:22:00 Test Item Value Reference Range Interpretation Comments RDW (test code = RDW) 13.3 11.5-14.5 [facility] [place]VkxolrfZJCCUBNSDS0123-55-70 20:22:00 Test Item Value Reference Range Interpretation Comments RBC (test code = RBC) 3.95 4.70-6.10 [facility] [place]KwsqtpuWNQJBZPDRC5645-30-15 20:22:00 Test Item Value Reference Range Interpretation Comments MCV (test code = MCV) 92.0 80.0-94.0 [facility] [place]VfbgwdpYEPHNCMRYM3370-71-39 20:22:00 Test Item Value Reference Range Interpretation Comments Hgb (test code = Hgb) 12.2 14.0-18.0 [facility] [place]FwcgshyBPMHWTQPIL7108-46-14 20:22:00 Test Item Value Reference Range Interpretation Comments WBC (test code = WBC) 15.6 3.7-10.4 [facility]2016-03-18 20:22:00 Test Item Value Reference Range Interpretation Comments eGFR (test code = eGFR) 70 [facility]2016-03-18 20:22:00 Test Item Value Reference Range Interpretation Comments Creatinine Lvl (test code = Creatinine 1.07 0.50-1.40 Lvl) [facility]2016-03-18 20:22:00 Test Item Value Reference Range Interpretation Comments Chloride Lvl (test code = Chloride Lvl) 104 95-109 [facility]2016-03-18 20:22:00 Test Item Value Reference Range Interpretation Comments Potassium Lvl (test code = Potassium 4.4 3.5-5.1 Lvl) [facility]2016-03-18 20:22:00 Test Item Value Reference Range Interpretation Comments Calcium Lvl (test code = Calcium Lvl) 7.8 8.5-10.5 [facility]2016-03-18 20:22:00 Test Item Value Reference Range Interpretation Comments CO2 (test code = CO2) 28 24-32 [facility]2016-03-18 20:22:00 Test Item Value Reference Range Interpretation Comments Sodium Lvl (test code = Sodium Lvl) 139 135-145 [facility]2016-03-18 20:22:00 Test Item Value Reference Range Interpretation Comments BUN (test code = BUN) 27 7-22 [facility]2016-03-18 20:22:00 Test Item Value Reference Range Interpretation Comments Glucose Lvl (test code = Glucose Lvl) 148 70-99 [facility]2016-03-18 20:22:00 Test Item Value Reference Range Interpretation Comments AGAP (test code = AGAP) 11.4 10.0-20.0 [facility] [place]RdukdmyOWNFKDTQEG4828-39-60 20:22:00 Test Item Value Reference Range Interpretation Comments Plt Morph (test code = Normal (05/06/15 3:22 Plt Morph) PM) [facility] [place]DyzjeaxQSDTQDRAXN7491-76-18 20:22:00 Test Item Value Reference Range Interpretation Comments RBC Morph (test code = Normal (05/06/15 3:22 RBC Morph) PM) [facility] [place]LdmcfxaNQVIWXGUFZ5797-88-26 20:22:00 Test Item Value Reference Range Interpretation Comments Basophils (test code = 1.0 See_Comment [Aut omated message] The Basophils) system which ge nerated this result tra nsmitted reference range : <=1.0. The reference r ryan was not used to int erpret this result as normal/abnormal . [facility] [place]XglburxCKWJKQHWEJ9289-04-23 20:22:00 Test Item Value Reference Range Interpretation Comments Eosinophils (test code = 2.0 See_Comment [A utomated message] The Eosinophils) system which ge nerated this result tra nsmitted reference range : <=4.0. The reference r ryan was not used to int erpret this result as normal/abnormal . [facility] [place]VjxchvbMYQOBHBOGN6327-00-21 20:22:00 Test Item Value Reference Range Interpretation Comments Atypical Lymphs (test code = Atypical 0.0 Lymphs) [facility] [place]PmwtpawZWQDTMEYAU8173-81-82 20:22:00 Test Item Value Reference Range Interpretation Comments Myelocytes (test code = Myelocytes) 1.0 [facility] [place]EznkavzNMNFAMSLRD7544-08-97 20:22:00 Test Item Value Reference Range Interpretation Comments Bands (test code = 0.0 See_Comment [Automat ed message] The Bands) system which ge nerated this result transmit tino reference range : <=11.0. The reference r ryan was not used to interpr et this result as debra l/abnormal. [facility] [place]LhpycgfCKTKCGBPVE7083-85-48 20:22:00 Test Item Value Reference Range Interpretation Comments Segs (test code = Segs) 61.0 45.0-75.0 [facility] [place]AkhipkzBYXEHTPIYU3795-14-63 20:22:00 Test Item Value Reference Range Interpretation Comments Monocytes (test code = Monocytes) 5.0 2.0-12.0 [facility] [place]RweimzqQNYMNMFASA3757-42-03 20:22:00 Test Item Value Reference Range Interpretation Comments Lymphocytes (test code = Lymphocytes) 30.0 20.0-40.0 [facility] [place]RopszedQGMMTHGSZR0456-90-13 20:22:00 Test Item Value Reference Range Interpretation Comments Basophils # (test code 0.2 See_Comment [Aut omated message] The = Basophils #) system which generated this result tra nsmitted reference range : <=0.2. The reference r ryan was not used to int erpret this result as normal/abnormal . [facility] [place]EnfinftEZRKITDZOH3363-16-40 20:22:00 Test Item Value Reference Range Interpretation Comments Eosinophils # (test code 0.3 See_Comment [A utomated message] The = Eosinophils #) system whic h generated this result tra nsmitted reference range : <=0.5. The reference r ryan was not used to int erpret this result as normal/abnormal . [facility] [place]AaxxzdrAPSZBVVNTD6331-76-70 20:22:00 Test Item Value Reference Range Interpretation Comments Monocytes # (test code 0.8 See_Comment [Aut omated message] The = Monocytes #) system which generated this result tra nsmitted reference range : <=0.8. The reference r ryan was not used to int erpret this result as normal/abnormal . [facility] [place]UvzlwwoCRGFBDDANL2306-23-52 20:22:00 Test Item Value Reference Range Interpretation Comments Segs-Bands # (test code = Segs-Bands #) 9.5 1.5-8.1 [facility] [place]SbdwzycRNUYHBOIRY6180-45-39 20:22:00 Test Item Value Reference Range Interpretation Comments Lymphocytes # (test code = Lymphocytes 4.7 1.0-5.5 #) [facility] [place]XjednrtZBATFHUWDK2958-52-47 20:22:00 Test Item Value Reference Range Interpretation Comments MCH (test code = MCH) 30.9 pg 27.0-31.0 [facility] [place]EpfyanrYWBEDBZJNN2888-86-10 20:22:00 Test Item Value Reference Range Interpretation Comments Hct (test code = Hct) 36.3 42.0-54.0 [facility] [place]JsmgvjpDYGBWNFOYU3381-27-82 20:22:00 Test Item Value Reference Range Interpretation Comments MPV (test code = MPV) 7.8 7.4-10.4 [facility] [place]ervilleGzurdreTTDREFKXQQ3906-91-06 20:22:00 Test Item Value Reference Range Interpretation Comments Platelet (test code = Platelet) 194 133-450 [facility] [place]OoirjakMDDTJPJUCZ0849-60-59 20:22:00 Test Item Value Reference Range Interpretation Comments MCHC (test code = MCHC) 33.6 32.0-36.0 [facility] [place]OungstjQQXYMWBXFW0263-43-94 20:22:00 Test Item Value Reference Range Interpretation Comments RDW (test code = RDW) 13.3 11.5-14.5 [facility] [place]SmpsvusWIDYMHOTYW2326-15-70 20:22:00 Test Item Value Reference Range Interpretation Comments RBC (test code = RBC) 3.95 4.70-6.10 [facility] [place]WieujjgXOXQMLBNMT2322-09-83 20:22:00 Test Item Value Reference Range Interpretation Comments MCV (test code = MCV) 92.0 80.0-94.0 [place] 875716-03-18 20:22:00 Test Item Value Reference Range Interpretation Comments Hgb (test code = Hgb) 12.2 14.0-18.0 [facility] [place]WgthvqmCBNLADSFHM1130-06-46 20:22:00 Test Item Value Reference Range Interpretation Comments WBC (test code = WBC) 15.6 3.7-10.4 [facility]2016-03-18 20:22:00 Test Item Value Reference Range Interpretation Comments eGFR (test code = eGFR) 70 [facility]2016-03-18 20:22:00 Test Item Value Reference Range Interpretation Comments Creatinine Lvl (test code = Creatinine 1.07 0.50-1.40 Lvl) [facility]2016-03-18 20:22:00 Test Item Value Reference Range Interpretation Comments Chloride Lvl (test code = Chloride Lvl) 104 95-109 [facility]2016-03-18 20:22:00 Test Item Value Reference Range Interpretation Comments Potassium Lvl (test code = Potassium 4.4 3.5-5.1 Lvl) [facility]2016-03-18 20:22:00 Test Item Value Reference Range Interpretation Comments Calcium Lvl (test code = Calcium Lvl) 7.8 8.5-10.5 [facility]2016-03-18 20:22:00 Test Item Value Reference Range Interpretation Comments CO2 (test code = CO2) 28 24-32 [facility]2016-03-18 20:22:00 Test Item Value Reference Range Interpretation Comments Sodium Lvl (test code = Sodium Lvl) 139 135-145 [facility]2016-03-18 20:22:00 Test Item Value Reference Range Interpretation Comments BUN (test code = BUN) 27 7-22 [facility]2016-03-18 20:22:00 Test Item Value Reference Range Interpretation Comments Glucose Lvl (test code = Glucose Lvl) 148 70-99 [facility]2016-03-18 20:22:00 Test Item Value Reference Range Interpretation Comments AGAP (test code = AGAP) 11.4 10.0-20.0 [facility] [place]ervilleFgecclbXVBEIANSVK5433-50-43 20:22:00 Test Item Value Reference Range Interpretation Comments Plt Morph (test code = Normal (05/06/15 3:22 Plt Morph) PM) [facility] [place]KizeiohIPXWLWBGIU1926-13-02 20:22:00 Test Item Value Reference Range Interpretation Comments RBC Morph (test code = Normal (05/06/15 3:22 RBC Morph) PM) [facility] [place]ervilleSisiyagIVHZZHFIRN2830-83-01 20:22:00 Test Item Value Reference Range Interpretation Comments Basophils (test code = 1.0 See_Comment [Aut omated message] The Basophils) system which nerated this result tra nsmitted reference range : <=1.0. The reference r ryan was not used to int erpret this result as normal/abnormal . [facility] [place]IuerntsVGSKDGGSTO0548-08-83 20:22:00 Test Item Value Reference Range Interpretation Comments Eosinophils (test code = 2.0 See_Comment [A utomated message] The Eosinophils) system which ge nerated this result tra nsmitted reference range : <=4.0. The reference r ryan was not used to int erpret this result as normal/abnormal . [facility] [place]RaraitoEAPZZLRBTN9484-12-91 20:22:00 Test Item Value Reference Range Interpretation Comments Atypical Lymphs (test code = Atypical 0.0 Lymphs) [facility] [place]MoaaxueSPRXMQTTSP3596-93-60 20:22:00 Test Item Value Reference Range Interpretation Comments Myelocytes (test code = Myelocytes) 1.0 [place] 875716-03-18 20:22:00 Test Item Value Reference Range Interpretation Comments Bands (test code = 0.0 See_Comment [Automat ed message] The Bands) system which ge nerated this result transmit tino reference range : <=11.0. The reference r ryan was not used to interpr et this result as debra l/abnormal. [facility] [place]IpwgiscFFZHQXJGGN5602-28-63 20:22:00 Test Item Value Reference Range Interpretation Comments Segs (test code = Segs) 61.0 45.0-75.0 [facility] [place]KnxsdscLCLBHFIYZO3118-44-88 20:22:00 Test Item Value Reference Range Interpretation Comments Monocytes (test code = Monocytes) 5.0 2.0-12.0 [facility] [place]ervilleGugwwdnOOGCGYLHTB1017-59-73 20:22:00 Test Item Value Reference Range Interpretation Comments Lymphocytes (test code = Lymphocytes) 30.0 20.0-40.0 [facility] [place]YbutjmgNRQNIGQDWM3724-16-30 20:22:00 Test Item Value Reference Range Interpretation Comments Basophils # (test code 0.2 See_Comment [Aut omated message] The = Basophils #) system which generated this result tra nsmitted reference range : <=0.2. The reference r ryan was not used to int erpret this result as normal/abnormal . [facility] [place]LgjlgfuGQBWBSDNBM8330-45-12 20:22:00 Test Item Value Reference Range Interpretation Comments Eosinophils # (test code 0.3 See_Comment [A utomated message] The = Eosinophils #) system whic h generated this result tra nsmitted reference range : <=0.5. The reference r ryan was not used to int erpret this result as normal/abnormal . [facility] [place]OxgiwvrCYJHZCSHGW5444-48-39 20:22:00 Test Item Value Reference Range Interpretation Comments Monocytes # (test code 0.8 See_Comment [Aut omated message] The = Monocytes #) system which generated this result tra nsmitted reference range : <=0.8. The reference r ryan was not used to int erpret this result as normal/abnormal . [facility] [place]IxqiymiWWPMPPLRFY1380-22-88 20:22:00 Test Item Value Reference Range Interpretation Comments Segs-Bands # (test code = Segs-Bands #) 9.5 1.5-8.1 [facility] [place]ervilleWuqzrjtSNBXJBMVXR8080-97-10 20:22:00 Test Item Value Reference Range Interpretation Comments Lymphocytes # (test code = Lymphocytes 4.7 1.0-5.5 #) [facility] [place]ervilleBbserydSYBDHNXKDS8817-68-75 20:22:00 Test Item Value Reference Range Interpretation Comments MCH (test code = MCH) 30.9 pg 27.0-31.0 [facility] [place]OlgktjbJCABFCVXZB0823-39-27 20:22:00 Test Item Value Reference Range Interpretation Comments Hct (test code = Hct) 36.3 42.0-54.0 [facility] [place]ervilleJbugeetQMGLZAIGSJ2504-11-20 20:22:00 Test Item Value Reference Range Interpretation Comments MPV (test code = MPV) 7.8 7.4-10.4 [facility] [place]ervilleRkiwtqqKJZGQYIQJM9314-41-84 20:22:00 Test Item Value Reference Range Interpretation Comments Platelet (test code = Platelet) 194 133-450 [facility] [place]ervilleRloakgsYRBRJXIBUV4061-65-82 20:22:00 Test Item Value Reference Range Interpretation Comments MCHC (test code = MCHC) 33.6 32.0-36.0 [facility] [place]ervilleVyxhhhhNYOQDVNCYF1683-13-27 20:22:00 Test Item Value Reference Range Interpretation Comments RDW (test code = RDW) 13.3 11.5-14.5 [facility] [place]HcdudsjUPFGVHGWGR5217-35-86 20:22:00 Test Item Value Reference Range Interpretation Comments RBC (test code = RBC) 3.95 4.70-6.10 [facility] [place]VfavdoyXFMCMCXOGW7417-86-88 20:22:00 Test Item Value Reference Range Interpretation Comments MCV (test code = MCV) 92.0 80.0-94.0 [facility] [place]IgenyytLCUHBGLBKG4526-70-23 20:22:00 Test Item Value Reference Range Interpretation Comments Hgb (test code = Hgb) 12.2 14.0-18.0 [facility] [place]ervilleRvyfdtpGERPBUSHKU3478-18-91 20:22:00 Test Item Value Reference Range Interpretation Comments WBC (test code = WBC) 15.6 3.7-10.4 [facility]2016-03-18 20:22:00 Test Item Value Reference Range Interpretation Comments eGFR (test code = eGFR) 70 [facility] [id number] 20:22:00 Test Item Value Reference Range Interpretation Comments Creatinine Lvl (test code = Creatinine 1.07 0.50-1.40 Lvl) [facility]2016-03-18 20:22:00 Test Item Value Reference Range Interpretation Comments Chloride Lvl (test code = Chloride Lvl) 104 95-109 [facility]2016-03-18 20:22:00 Test Item Value Reference Range Interpretation Comments Potassium Lvl (test code = Potassium 4.4 3.5-5.1 Lvl) [facility]2016-03-18 20:22:00 Test Item Value Reference Range Interpretation Comments Calcium Lvl (test code = Calcium Lvl) 7.8 8.5-10.5 [place] 520356-03-18 20:22:00 Test Item Value Reference Range Interpretation Comments CO2 (test code = CO2) 28 24-32 [place] 520356-03-18 20:22:00 Test Item Value Reference Range Interpretation Comments Sodium Lvl (test code = Sodium Lvl) 139 135-145 [facility]2016-03-18 20:22:00 Test Item Value Reference Range Interpretation Comments BUN (test code = BUN) 27 7-22 [place] 520356-03-18 20:22:00 Test Item Value Reference Range Interpretation Comments Glucose Lvl (test code = Glucose Lvl) 148 70-99 [facility]2016-03-18 20:22:00 Test Item Value Reference Range Interpretation Comments AGAP (test code = AGAP) 11.4 10.0-20.0 [facility]OaxqiomVOHNHLOHOY5163-49-96 20:22:00 Test Item Value Reference Range Interpretation Comments Plt Morph (test code = Normal (05/06/15 3:22 Plt Morph) PM) [facility]DkjgdhdTFMNKTQCAP5537-44-29 20:22:00 Test Item Value Reference Range Interpretation Comments RBC Morph (test code = Normal (05/06/15 3:22 RBC Morph) PM) [facility]ervilleEghkncyQDFWCWYLYD4546-30-31 20:22:00 Test Item Value Reference Range Interpretation Comments Basophils (test code = 1.0 See_Comment [Aut omated message] The Basophils) system which ge nerated this result tra nsmitted reference range : <=1.0. The reference r ryan was not used to int erpret this result as normal/abnormal . [facility]ervilleAqvkvafSLIRBZJVLF8855-82-75 20:22:00 Test Item Value Reference Range Interpretation Comments Eosinophils (test code = 2.0 See_Comment [A utomated message] The Eosinophils) system which ge nerated this result tra nsmitted reference range : <=4.0. The reference r ryan was not used to int erpret this result as normal/abnormal . [facility]ervilleCyqxhjxOPHYTLRZCI8247-74-20 20:22:00 Test Item Value Reference Range Interpretation Comments Atypical Lymphs (test code = Atypical 0.0 Lymphs) [facility] [place]ervilleStkoyjhJALHVXIOHK5597-12-04 20:22:00 Test Item Value Reference Range Interpretation Comments Myelocytes (test code = Myelocytes) 1.0 [facility] [place]ervilleKkgebpdQRGQXVQMQG3907-49-71 20:22:00 Test Item Value Reference Range Interpretation Comments Bands (test code = 0.0 See_Comment [Automat ed message] The Bands) system which ge nerated this result transmit tino reference range : <=11.0. The reference r ryan was not used to interpr et this result as debra l/abnormal. [facility]ervilleFvsryssEQXVRBQNVM7407-15-41 20:22:00 Test Item Value Reference Range Interpretation Comments Segs (test code = Segs) 61.0 45.0-75.0 [facility] [place]ervilleFqitoiyMSNSRZNUSQ2546-00-21 20:22:00 Test Item Value Reference Range Interpretation Comments Monocytes (test code = Monocytes) 5.0 2.0-12.0 [facility] [place]ervilleVpgdzzyDOQTJESIRE7498-58-82 20:22:00 Test Item Value Reference Range Interpretation Comments Lymphocytes (test code = Lymphocytes) 30.0 20.0-40.0 [facility]ervilleZjpfnpxXXDIRWXZVE3486-85-74 20:22:00 Test Item Value Reference Range Interpretation Comments Basophils # (test code 0.2 See_Comment [Aut omated message] The = Basophils #) system which generated this result tra nsmitted reference range : <=0.2. The reference r ryan was not used to int erpret this result as normal/abnormal . [facility] ZWUKK4965-27-12 20:22:00 Test Item Value Reference Range Interpretation Comments eGFR (test code = eGFR) 70 [facility] [id number] 20:22:00 Test Item Value Reference Range Interpretation Comments Creatinine Lvl (test code = Creatinine 1.07 0.50-1.40 Lvl) [facility]2016-03-18 20:22:00 Test Item Value Reference Range Interpretation Comments Chloride Lvl (test code = Chloride Lvl) 104 95-109 [facility]2016-03-18 20:22:00 Test Item Value Reference Range Interpretation Comments Potassium Lvl (test code = Potassium 4.4 3.5-5.1 Lvl) [facility]2016-03-18 20:22:00 Test Item Value Reference Range Interpretation Comments Calcium Lvl (test code = Calcium Lvl) 7.8 8.5-10.5 [place] 520356-03-18 20:22:00 Test Item Value Reference Range Interpretation Comments CO2 (test code = CO2) 28 24-32 [facility]2016-03-18 20:22:00 Test Item Value Reference Range Interpretation Comments Sodium Lvl (test code = Sodium Lvl) 139 135-145 [facility]2016-03-18 20:22:00 Test Item Value Reference Range Interpretation Comments BUN (test code = BUN) 27 7-22 [facility]2016-03-18 20:22:00 Test Item Value Reference Range Interpretation Comments Glucose Lvl (test code = Glucose Lvl) 148 70-99 [facility]2016-03-18 20:22:00 Test Item Value Reference Range Interpretation Comments AGAP (test code = AGAP) 11.4 10.0-20.0 [facility] [place]ervilleRcxkjgdSHKKMNZYFG3517-71-34 20:22:00 Test Item Value Reference Range Interpretation Comments Plt Morph (test code = Normal (05/06/15 3:22 Plt Morph) PM) [facility]ervilleFwbkcnsIFGBDKCVLE3152-56-32 20:22:00 Test Item Value Reference Range Interpretation Comments RBC Morph (test code = Normal (05/06/15 3:22 RBC Morph) PM) [facility] [place]ervilleWlovibuUORSAJIGGC1527-14-62 20:22:00 Test Item Value Reference Range Interpretation Comments Basophils (test code = 1.0 See_Comment [Aut omated message] The Basophils) system which ge nerated this result tra nsmitted reference range : <=1.0. The reference r ryan was not used to int erpret this result as normal/abnormal . [facility]ervilleCvaqgnqWBUENVFGVS0553-79-00 20:22:00 Test Item Value Reference Range Interpretation Comments Eosinophils (test code = 2.0 See_Comment [A utomated message] The Eosinophils) system which ge nerated this result tra nsmitted reference range : <=4.0. The reference r ryan was not used to int erpret this result as normal/abnormal . [facility]ervilleTjqsdbgMNNWLIANSM1289-44-88 20:22:00 Test Item Value Reference Range Interpretation Comments Atypical Lymphs (test code = Atypical 0.0 Lymphs) [facility]ervilleKrjjmjbNIBBUBVPON6898-76-28 20:22:00 Test Item Value Reference Range Interpretation Comments Myelocytes (test code = Myelocytes) 1.0 [facility]ervilleNvxudotVBBSJFZJCZ2757-24-35 20:22:00 Test Item Value Reference Range Interpretation Comments Bands (test code = 0.0 See_Comment [Automat ed message] The Bands) system which ge nerated this result transmit tino reference range : <=11.0. The reference r ryan was not used to interpr et this result as debra l/abnormal. [facility]ervilleRxesoerBWLGFEEDHR5457-19-50 20:22:00 Test Item Value Reference Range Interpretation Comments Segs (test code = Segs) 61.0 45.0-75.0 [facility]ervilleQqkamgeVZURKSUFQY5593-94-60 20:22:00 Test Item Value Reference Range Interpretation Comments Monocytes (test code = Monocytes) 5.0 2.0-12.0 [facility]EgcvfkbODRYUOUTBV3392-74-06 20:22:00 Test Item Value Reference Range Interpretation Comments Lymphocytes (test code = Lymphocytes) 30.0 20.0-40.0 [facility]ervilleTjioljiJCIAFQZYJG2477-06-01 20:22:00 Test Item Value Reference Range Interpretation Comments Basophils # (test code 0.2 See_Comment [Aut omated message] The = Basophils #) system which generated this result tra nsmitted reference range : <=0.2. The reference r ryan was not used to int erpret this result as normal/abnormal . [facility]ervilleWgmrevqAWMARUFDCO5353-45-36 20:22:00 Test Item Value Reference Range Interpretation Comments Eosinophils # (test code 0.3 See_Comment [A utomated message] The = Eosinophils #) system whic h generated this result tra nsmitted reference range : <=0.5. The reference r ryan was not used to int erpret this result as normal/abnormal . [facility]ervilleTyrhkrfZNKRYJMZAC8165-93-68 20:22:00 Test Item Value Reference Range Interpretation Comments Monocytes # (test code 0.8 See_Comment [Aut omated message] The = Monocytes #) system which generated this result tra nsmitted reference range : <=0.8. The reference r ryan was not used to int erpret this result as normal/abnormal . [facility]ervilleFbfsjlzHZUSPLKEET5643-37-53 20:22:00 Test Item Value Reference Range Interpretation Comments Segs-Bands # (test code = Segs-Bands #) 9.5 1.5-8.1 [facility]ervilleMviqvwoONGDDLIWQE0931-46-59 20:22:00 Test Item Value Reference Range Interpretation Comments Lymphocytes # (test code = Lymphocytes 4.7 1.0-5.5 #) [facility]ervilleIjelfubWAFCCFCLDS0782-60-87 20:22:00 Test Item Value Reference Range Interpretation Comments MCH (test code = MCH) 30.9 pg 27.0-31.0 [facility]ervilleIhouxuhXGAZMEXNUK8798-88-68 20:22:00 Test Item Value Reference Range Interpretation Comments Hct (test code = Hct) 36.3 42.0-54.0 [facility]ervilleBtqqyujCRJTYBVERE2639-38-02 20:22:00 Test Item Value Reference Range Interpretation Comments MPV (test code = MPV) 7.8 7.4-10.4 [facility]ervilleAcganujHTAYLGLTLB4961-67-00 20:22:00 Test Item Value Reference Range Interpretation Comments Platelet (test code = Platelet) 194 133-450 [facility]ervilleYstykkhVIBIXBBTGQ5508-30-22 20:22:00 Test Item Value Reference Range Interpretation Comments MCHC (test code = MCHC) 33.6 32.0-36.0 [facility]ervilleWwvvosxGHMDBFRCVZ3976-67-33 20:22:00 Test Item Value Reference Range Interpretation Comments RDW (test code = RDW) 13.3 11.5-14.5 [facility]ervilleGptlsriFMCXLSWTKZ1696-54-65 20:22:00 Test Item Value Reference Range Interpretation Comments RBC (test code = RBC) 3.95 4.70-6.10 [facility]ervilleIkfwdbnFHWTYXCHWQ8506-80-77 20:22:00 Test Item Value Reference Range Interpretation Comments MCV (test code = MCV) 92.0 80.0-94.0 [facility]ervilleAmjhtksTJNEKRQYPO8283-29-43 20:22:00 Test Item Value Reference Range Interpretation Comments Hgb (test code = Hgb) 12.2 14.0-18.0 [place] 875716-03-18 20:22:00 Test Item Value Reference Range Interpretation Comments WBC (test code = WBC) 15.6 3.7-10.4 [place] 520356-03-17 15:55:00 Test Item Value Reference Range Interpretation Comments eGFR (test code = eGFR) 89 [facility]2016-03-17 15:55:00 Test Item Value Reference Range Interpretation Comments CO2 (test code = CO2) 30 24-32 [place] 520356-03-17 15:55:00 Test Item Value Reference Range Interpretation Comments Chloride Lvl (test code = Chloride Lvl) 99 95-109 [place] 520356-03-17 15:55:00 Test Item Value Reference Range Interpretation Comments Potassium Lvl (test code = Potassium 4.8 3.5-5.1 Lvl) [facility]2016-03-17 15:55:00 Test Item Value Reference Range Interpretation Comments Creatinine Lvl (test code = Creatinine 0.83 0.50-1.40 Lvl) [facility]2016-03-17 15:55:00 Test Item Value Reference Range Interpretation Comments BUN (test code = BUN) 26 7-22 [place] 520356-03-17 15:55:00 Test Item Value Reference Range Interpretation Comments Sodium Lvl (test code = Sodium Lvl) 139 135-145 [facility]2016-03-17 15:55:00 Test Item Value Reference Range Interpretation Comments Glucose Lvl (test code = Glucose Lvl) 157 70-99 [place] 520356-03-17 15:55:00 Test Item Value Reference Range Interpretation Comments Calcium Lvl (test code = Calcium Lvl) 9.2 8.5-10.5 [facility]2016-03-17 15:55:00 Test Item Value Reference Range Interpretation Comments AGAP (test code = AGAP) 14.8 10.0-20.0 [facility]ervilleMhkzsssHGOTVDGTLE2353-15-06 15:55:00 Test Item Value Reference Range Interpretation Comments RBC (test code = RBC) 4.07 4.70-6.10 [facility]ervilleHxtrgkqZWOOTFCAEM3168-09-42 15:55:00 Test Item Value Reference Range Interpretation Comments WBC (test code = WBC) 17.5 3.7-10.4 [facility]ervilleEhbgbgnIWMZOCCQHS0902-69-04 15:55:00 Test Item Value Reference Range Interpretation Comments Hgb (test code = Hgb) 12.7 14.0-18.0 [facility]ervilleZfyblyuUVSBRNFOIU3846-63-70 15:55:00 Test Item Value Reference Range Interpretation Comments MCV (test code = MCV) 93.0 80.0-94.0 [facility]ervilleLbopsgkEDBVMTBRRB8068-03-87 15:55:00 Test Item Value Reference Range Interpretation Comments Hct (test code = Hct) 37.8 42.0-54.0 [facility]ervillePneddjpUOZNETIJGV9122-54-18 15:55:00 Test Item Value Reference Range Interpretation Comments RDW (test code = RDW) 13.5 11.5-14.5 [facility]ervilleJntsnnxAAHAACZAOF5512-10-84 15:55:00 Test Item Value Reference Range Interpretation Comments MCHC (test code = MCHC) 33.7 32.0-36.0 [facility]ervilleAozvrrfLTVBFOKLSC0060-26-06 15:55:00 Test Item Value Reference Range Interpretation Comments MPV (test code = MPV) 8.3 7.4-10.4 [facility]ervilleLorgjnhXMDAAUHRTP9753-59-25 15:55:00 Test Item Value Reference Range Interpretation Comments Platelet (test code = Platelet) 198 133-450 [facility]ervilleJnhfgapPMKHFTXGPS9744-51-15 15:55:00 Test Item Value Reference Range Interpretation Comments MCH (test code = MCH) 31.3 pg 27.0-31.0 [facility]ervilleAsoiirpJOJACOSKVC8133-61-32 15:55:00 Test Item Value Reference Range Interpretation Comments Plt Morph (test code = Normal (05/05/15 10:55 Plt Morph) AM) [facility]ervilleAjauktnSPRXGTHSZH5720-15-48 15:55:00 Test Item Value Reference Range Interpretation Comments Lymphocytes # (test code = Lymphocytes 2.1 1.0-5.5 #) [facility]ervilleNnlsnuhHQXUMQJVGK8711-06-84 15:55:00 Test Item Value Reference Range Interpretation Comments Segs-Bands # (test code = Segs-Bands #) 14.9 1.5-8.1 [facility] CenterWpzetjhHWIEXVWUCA0898-27-85 15:55:00 Test Item Value Reference Range Interpretation Comments Monocytes # (test code 0.5 See_Comment [Aut omated message] The = Monocytes #) system which generated this result tra nsmitted reference range : <=0.8. The reference r ryan was not used to int erpret this result as normal/abnormal . [facility] CenterZmwihnrUMUJVPPRAH2435-65-75 15:55:00 Test Item Value Reference Range Interpretation Comments Segs (test code = Segs) 83.0 45.0-75.0 [facility]ervilleZbxyzafWPNTWYTXWF3045-88-07 15:55:00 Test Item Value Reference Range Interpretation Comments RBC Morph (test code = Normal (05/05/15 10:55 RBC Morph) AM) [facility] CenterEsikjogEAXHMFLYJL8484-65-62 15:55:00 Test Item Value Reference Range Interpretation Comments Monocytes (test code = Monocytes) 3.0 2.0-12.0 [facility] CenterXutvrusYCITMTMVPV8716-92-30 15:55:00 Test Item Value Reference Range Interpretation Comments Atypical Lymphs (test code = Atypical 0.0 Lymphs) [facility] CenterPnsgvgkLUVVGTXUCZ3020-29-07 15:55:00 Test Item Value Reference Range Interpretation Comments Lymphocytes (test code = Lymphocytes) 12.0 20.0-40.0 [facility] CenterLvcibsaDEQCZUMZOH5683-85-20 15:55:00 Test Item Value Reference Range Interpretation Comments Bands (test code = 2.0 See_Comment [Automat ed message] The Bands) system which ge nerated this result transmit tino reference range : <=11.0. The reference r ryan was not used to interpr et this result as debra l/abnormal. [facility] MCHRNFERP7584-30-74 15:55:00 Test Item Value Reference Range Interpretation Comments Hgb A1C (test code = Hgb A1C) 7.3 [facility] CenterCHEM GNJWL1875-30-84 15:55:00 Test Item Value Reference Range Interpretation Comments eGFR (test code = eGFR) 89 [facility] UBZAF0196-64-18 15:55:00 Test Item Value Reference Range Interpretation Comments CO2 (test code = CO2) 30 24-32 [facility] CenterCHEM TKNVY1057-34-03 15:55:00 Test Item Value Reference Range Interpretation Comments Chloride Lvl (test code = Chloride Lvl) 99 95-109 [facility]2016-03-17 15:55:00 Test Item Value Reference Range Interpretation Comments Potassium Lvl (test code = Potassium 4.8 3.5-5.1 Lvl) [facility]2016-03-17 15:55:00 Test Item Value Reference Range Interpretation Comments Creatinine Lvl (test code = Creatinine 0.83 0.50-1.40 Lvl) [facility]2016-03-17 15:55:00 Test Item Value Reference Range Interpretation Comments BUN (test code = BUN) 26 7-22 [facility]2016-03-17 15:55:00 Test Item Value Reference Range Interpretation Comments Sodium Lvl (test code = Sodium Lvl) 139 135-145 [facility]2016-03-17 15:55:00 Test Item Value Reference Range Interpretation Comments Glucose Lvl (test code = Glucose Lvl) 157 70-99 [facility]2016-03-17 15:55:00 Test Item Value Reference Range Interpretation Comments Calcium Lvl (test code = Calcium Lvl) 9.2 8.5-10.5 [facility]2016-03-17 15:55:00 Test Item Value Reference Range Interpretation Comments AGAP (test code = AGAP) 14.8 10.0-20.0 [facility]ervilleOfdvupzALYOAFBBRS8154-69-52 15:55:00 Test Item Value Reference Range Interpretation Comments RBC (test code = RBC) 4.07 4.70-6.10 [facility]ervilleDzjvhcaWSTUPYKSPF4908-33-23 15:55:00 Test Item Value Reference Range Interpretation Comments WBC (test code = WBC) 17.5 3.7-10.4 [place] 875716-03-17 15:55:00 Test Item Value Reference Range Interpretation Comments Hgb (test code = Hgb) 12.7 14.0-18.0 [place] [address]-03-17 15:55:00 Test Item Value Reference Range Interpretation Comments MCV (test code = MCV) 93.0 80.0-94.0 [place] 875716-03-17 15:55:00 Test Item Value Reference Range Interpretation Comments Hct (test code = Hct) 37.8 42.0-54.0 [facility]ervilleKuqqsvfMZBYYPOXQY2181-66-99 15:55:00 Test Item Value Reference Range Interpretation Comments RDW (test code = RDW) 13.5 11.5-14.5 [facility]ervillePnpwfvcXAXUJLAENU8160-86-54 15:55:00 Test Item Value Reference Range Interpretation Comments MCHC (test code = MCHC) 33.7 32.0-36.0 [facility]ervillePoerwlnQXFRNNCDSD6637-10-80 15:55:00 Test Item Value Reference Range Interpretation Comments MPV (test code = MPV) 8.3 7.4-10.4 [facility]ervilleAagiwtuTMXHQLXTIB2680-15-99 15:55:00 Test Item Value Reference Range Interpretation Comments Platelet (test code = Platelet) 198 133-450 [facility]ervilleZgaqlzwOISVAZPFHV4995-88-19 15:55:00 Test Item Value Reference Range Interpretation Comments MCH (test code = MCH) 31.3 pg 27.0-31.0 [facility]ervilleWofidzxKQVARQQNZX8443-42-10 15:55:00 Test Item Value Reference Range Interpretation Comments Plt Morph (test code = Normal (05/05/15 10:55 Plt Morph) AM) [facility]ervilleFcfhrsnHLSANUMEAN6317-24-64 15:55:00 Test Item Value Reference Range Interpretation Comments Lymphocytes # (test code = Lymphocytes 2.1 1.0-5.5 #) [facility]ervilleDrfyhhfECJJGQNHHZ0903-92-60 15:55:00 Test Item Value Reference Range Interpretation Comments Segs-Bands # (test code = Segs-Bands #) 14.9 1.5-8.1 [facility]ervilleUeoqastCMZSBCSPIU5421-10-08 15:55:00 Test Item Value Reference Range Interpretation Comments Monocytes # (test code 0.5 See_Comment [Aut omated message] The = Monocytes #) system which generated this result tra nsmitted reference range : <=0.8. The reference r ryan was not used to int erpret this result as normal/abnormal . [facility]ervilleDijoiqwHLWNFYYTJF7970-49-21 15:55:00 Test Item Value Reference Range Interpretation Comments Segs (test code = Segs) 83.0 45.0-75.0 [facility]ervilleLoqmvhjYLIRGVTLSV5291-52-04 15:55:00 Test Item Value Reference Range Interpretation Comments RBC Morph (test code = Normal (05/05/15 10:55 RBC Morph) AM) [facility]ervilleLkfyrwfKTZGSFXPQN6307-87-40 15:55:00 Test Item Value Reference Range Interpretation Comments Monocytes (test code = Monocytes) 3.0 2.0-12.0 [facility]ervilleGrsyvvxWKJGNIGATF3709-70-75 15:55:00 Test Item Value Reference Range Interpretation Comments Atypical Lymphs (test code = Atypical 0.0 Lymphs) [facility]ervilleBumnmbuIGMHVJHROF4255-83-88 15:55:00 Test Item Value Reference Range Interpretation Comments Lymphocytes (test code = Lymphocytes) 12.0 20.0-40.0 [facility]ervillePjswxwvSSALDRQFQW5026-15-34 15:55:00 Test Item Value Reference Range Interpretation Comments Bands (test code = 2.0 See_Comment [Automat ed message] The Bands) system which ge nerated this result transmit tino reference range : <=11.0. The reference r ryan was not used to interpr et this result as debra l/abnormal. [facility] XPYROVYXZ5785-41-72 15:55:00 Test Item Value Reference Range Interpretation Comments Hgb A1C (test code = Hgb A1C) 7.3 [facility]2016-03-17 15:55:00 Test Item Value Reference Range Interpretation Comments eGFR (test code = eGFR) 89 [facility]2016-03-17 15:55:00 Test Item Value Reference Range Interpretation Comments CO2 (test code = CO2) 30 24-32 [facility]2016-03-17 15:55:00 Test Item Value Reference Range Interpretation Comments Chloride Lvl (test code = Chloride Lvl) 99 95-109 [facility]2016-03-17 15:55:00 Test Item Value Reference Range Interpretation Comments Potassium Lvl (test code = Potassium 4.8 3.5-5.1 Lvl) [facility] [facility]2016-03-17 15:55:00 Test Item Value Reference Range Interpretation Comments Creatinine Lvl (test code = Creatinine 0.83 0.50-1.40 Lvl) [facility]2016-03-17 15:55:00 Test Item Value Reference Range Interpretation Comments BUN (test code = BUN) 26 7-22 [facility]2016-03-17 15:55:00 Test Item Value Reference Range Interpretation Comments Sodium Lvl (test code = Sodium Lvl) 139 135-145 [facility]2016-03-17 15:55:00 Test Item Value Reference Range Interpretation Comments Glucose Lvl (test code = Glucose Lvl) 157 70-99 [facility]2016-03-17 15:55:00 Test Item Value Reference Range Interpretation Comments Calcium Lvl (test code = Calcium Lvl) 9.2 8.5-10.5 [facility]2016-03-17 15:55:00 Test Item Value Reference Range Interpretation Comments AGAP (test code = AGAP) 14.8 10.0-20.0 [facility]BoouvofOLRQRCHJTV6956-71-64 15:55:00 Test Item Value Reference Range Interpretation Comments RBC (test code = RBC) 4.07 4.70-6.10 [facility] [place]NnuvrxqFFRRWKBEOC3720-26-41 15:55:00 Test Item Value Reference Range Interpretation Comments WBC (test code = WBC) 17.5 3.7-10.4 [facility] [place]DnqtspkPDSOSFWGTR7776-02-67 15:55:00 Test Item Value Reference Range Interpretation Comments Hgb (test code = Hgb) 12.7 14.0-18.0 [place] 875716-03-17 15:55:00 Test Item Value Reference Range Interpretation Comments MCV (test code = MCV) 93.0 80.0-94.0 [facility]PcezhupTPKGDSTQQG0298-85-06 15:55:00 Test Item Value Reference Range Interpretation Comments Hct (test code = Hct) 37.8 42.0-54.0 [facility] [place]QoipqrnRAMLPPNPZZ0314-61-42 15:55:00 Test Item Value Reference Range Interpretation Comments RDW (test code = RDW) 13.5 11.5-14.5 [facility] [place]JikccprNNHYYNPNLP1678-28-19 15:55:00 Test Item Value Reference Range Interpretation Comments MCHC (test code = MCHC) 33.7 32.0-36.0 [facility] [place]LtkvdogZMIUZOHLYC7074-03-77 15:55:00 Test Item Value Reference Range Interpretation Comments MPV (test code = MPV) 8.3 7.4-10.4 [facility]HxgqzdtNDVOPWACJD6238-66-09 15:55:00 Test Item Value Reference Range Interpretation Comments Platelet (test code = Platelet) 198 133-450 [facility] [place]RsjwokmHFACGCMVCY1270-53-19 15:55:00 Test Item Value Reference Range Interpretation Comments MCH (test code = MCH) 31.3 pg 27.0-31.0 [facility]PxiatxiNZZXPAUWZZ2814-72-17 15:55:00 Test Item Value Reference Range Interpretation Comments Plt Morph (test code = Normal (05/05/15 10:55 Plt Morph) AM) [facility]NayoezsMOYWYULCYU1043-12-21 15:55:00 Test Item Value Reference Range Interpretation Comments Lymphocytes # (test code = Lymphocytes 2.1 1.0-5.5 #) [facility] [place]SxohrijUUDEGPIDAS9043-31-84 15:55:00 Test Item Value Reference Range Interpretation Comments Segs-Bands # (test code = Segs-Bands #) 14.9 1.5-8.1 [facility] [place]ervilleZiirehrAWACGCRQAY3176-13-70 15:55:00 Test Item Value Reference Range Interpretation Comments Monocytes # (test code 0.5 See_Comment [Aut omated message] The = Monocytes #) system which generated this result tra nsmitted reference range : <=0.8. The reference r ryan was not used to int erpret this result as normal/abnormal . [facility]ervilleVxgvpwiGAAUQQAWPV0593-81-58 15:55:00 Test Item Value Reference Range Interpretation Comments Segs (test code = Segs) 83.0 45.0-75.0 [facility]LgpotgtTJVTEYMNDA4041-79-02 15:55:00 Test Item Value Reference Range Interpretation Comments RBC Morph (test code = Normal (05/05/15 10:55 RBC Morph) AM) [facility]YfeqmnxWHYRDRWVVY0248-63-28 15:55:00 Test Item Value Reference Range Interpretation Comments Monocytes (test code = Monocytes) 3.0 2.0-12.0 [facility]EquxbzqYFSCQAQNEU5997-91-92 15:55:00 Test Item Value Reference Range Interpretation Comments Atypical Lymphs (test code = Atypical 0.0 Lymphs) [facility]LgcjghdVWIVJMXDAH9210-97-92 15:55:00 Test Item Value Reference Range Interpretation Comments Lymphocytes (test code = Lymphocytes) 12.0 20.0-40.0 [facility]NvcfyojWQGEISSOVM4437-72-42 15:55:00 Test Item Value Reference Range Interpretation Comments Bands (test code = 2.0 See_Comment [Automat ed message] The Bands) system which ge nerated this result transmit tino reference range : <=11.0. The reference r ryan was not used to interpr et this result as debra l/abnormal. [facility] KZDPWIGYJ8368-58-06 15:55:00 Test Item Value Reference Range Interpretation Comments Hgb A1C (test code = Hgb A1C) 7.3 [facility]2016-03-17 15:55:00 Test Item Value Reference Range Interpretation Comments eGFR (test code = eGFR) 89 [facility]2016-03-17 15:55:00 Test Item Value Reference Range Interpretation Comments CO2 (test code = CO2) 30 24-32 [facility]2016-03-17 15:55:00 Test Item Value Reference Range Interpretation Comments Chloride Lvl (test code = Chloride Lvl) 99 95-109 [facility]2016-03-17 15:55:00 Test Item Value Reference Range Interpretation Comments Potassium Lvl (test code = Potassium 4.8 3.5-5.1 Lvl) [facility]2016-03-17 15:55:00 Test Item Value Reference Range Interpretation Comments Creatinine Lvl (test code = Creatinine 0.83 0.50-1.40 Lvl) [facility]2016-03-17 15:55:00 Test Item Value Reference Range Interpretation Comments BUN (test code = BUN) 26 7-22 [facility]2016-03-17 15:55:00 Test Item Value Reference Range Interpretation Comments Sodium Lvl (test code = Sodium Lvl) 139 135-145 [facility]2016-03-17 15:55:00 Test Item Value Reference Range Interpretation Comments Glucose Lvl (test code = Glucose Lvl) 157 70-99 [facility]2016-03-17 15:55:00 Test Item Value Reference Range Interpretation Comments Calcium Lvl (test code = Calcium Lvl) 9.2 8.5-10.5 [facility]2016-03-17 15:55:00 Test Item Value Reference Range Interpretation Comments AGAP (test code = AGAP) 14.8 10.0-20.0 [facility] CenterYioigwqHXAGCSLKQX9383-68-54 15:55:00 Test Item Value Reference Range Interpretation Comments RBC (test code = RBC) 4.07 4.70-6.10 [facility]ZsolohmXQOASTKEBE3195-15-13 15:55:00 Test Item Value Reference Range Interpretation Comments WBC (test code = WBC) 17.5 3.7-10.4 [facility]ervilleEurtfkbWOMXQKBGQJ4006-49-73 15:55:00 Test Item Value Reference Range Interpretation Comments Hgb (test code = Hgb) 12.7 14.0-18.0 [facility]ervilleWqvewatHEJVLCTWTR5708-67-85 15:55:00 Test Item Value Reference Range Interpretation Comments MCV (test code = MCV) 93.0 80.0-94.0 [facility]ervilleCxvhjjtLBIKWMGMDP6255-68-29 15:55:00 Test Item Value Reference Range Interpretation Comments Hct (test code = Hct) 37.8 42.0-54.0 [facility]SsxggaxTXVOZCYWFO9733-84-08 15:55:00 Test Item Value Reference Range Interpretation Comments RDW (test code = RDW) 13.5 11.5-14.5 [facility]EewmegpMIWWPFCMZB1915-27-40 15:55:00 Test Item Value Reference Range Interpretation Comments MCHC (test code = MCHC) 33.7 32.0-36.0 [facility]ervilleWugcemfICMRESPYYK8528-24-01 15:55:00 Test Item Value Reference Range Interpretation Comments MPV (test code = MPV) 8.3 7.4-10.4 [facility]ervilleSpgclgrPZUMPYLUBF2836-98-70 15:55:00 Test Item Value Reference Range Interpretation Comments Platelet (test code = Platelet) 198 133-450 [facility]ervilleMzdavxlMLEHCHIZJC4943-95-23 15:55:00 Test Item Value Reference Range Interpretation Comments MCH (test code = MCH) 31.3 pg 27.0-31.0 [facility]KdoqhvlWPIRFKHNUN6432-66-97 15:55:00 Test Item Value Reference Range Interpretation Comments Plt Morph (test code = Normal (05/05/15 10:55 Plt Morph) AM) [facility]IpcwjjeQQLLQLBJML3429-44-76 15:55:00 Test Item Value Reference Range Interpretation Comments Lymphocytes # (test code = Lymphocytes 2.1 1.0-5.5 #) [facility]ervilleOawsrulZTJSDQHHXN7572-62-80 15:55:00 Test Item Value Reference Range Interpretation Comments Segs-Bands # (test code = Segs-Bands #) 14.9 1.5-8.1 [facility]PmxxkhhZARRWQNQKI5347-70-69 15:55:00 Test Item Value Reference Range Interpretation Comments Monocytes # (test code 0.5 See_Comment [Aut omated message] The = Monocytes #) system which generated this result tra nsmitted reference range : <=0.8. The reference r ryan was not used to int erpret this result as normal/abnormal . [facility] CenterSjkgzasVPAMZTWAQF6516-15-99 15:55:00 Test Item Value Reference Range Interpretation Comments Segs (test code = Segs) 83.0 45.0-75.0 [facility] CenterLnoeizcLPJXXOVCZI0483-37-63 15:55:00 Test Item Value Reference Range Interpretation Comments RBC Morph (test code = Normal (05/05/15 10:55 RBC Morph) AM) [facility] CenterJukgljvLGNTAFYFLZ7273-45-13 15:55:00 Test Item Value Reference Range Interpretation Comments Monocytes (test code = Monocytes) 3.0 2.0-12.0 [facility] CenterAuomfhoONJUSUTBCR9316-05-59 15:55:00 Test Item Value Reference Range Interpretation Comments Atypical Lymphs (test code = Atypical 0.0 Lymphs) [facility] CenterLnjmrriUPXLZDPYQM7591-63-37 15:55:00 Test Item Value Reference Range Interpretation Comments Lymphocytes (test code = Lymphocytes) 12.0 20.0-40.0 [facility] CenterPbefmygHBWVMPYCQY2135-70-67 15:55:00 Test Item Value Reference Range Interpretation Comments Bands (test code = 2.0 See_Comment [Automat ed message] The Bands) system which ge nerated this result transmit tino reference range : <=11.0. The reference r ryan was not used to interpr et this result as debra l/abnormal. [facility] SXFWOEQMR6524-20-42 15:55:00 Test Item Value Reference Range Interpretation Comments Hgb A1C (test code = Hgb A1C) 7.3 [facility] CenterCHE[facility] FHOYK1885-34-41 15:55:00 Test Item Value Reference Range Interpretation Comments eGFR (test code = eGFR) 89 [facility] GGRZA9737-63-96 15:55:00 Test Item Value Reference Range Interpretation Comments CO2 (test code = CO2) 30 24-32 [facility] CenterS[facility] DKVOR9085-14-83 15:55:00 Test Item Value Reference Range Interpretation Comments Chloride Lvl (test code = Chloride Lvl) 99 95-109 [place] 520356-03-17 15:55:00 Test Item Value Reference Range Interpretation Comments Potassium Lvl (test code = Potassium 4.8 3.5-5.1 Lvl) [place] 520356-03-17 15:55:00 Test Item Value Reference Range Interpretation Comments Creatinine Lvl (test code = Creatinine 0.83 0.50-1.40 Lvl) [place] 520356-03-17 15:55:00 Test Item Value Reference Range Interpretation Comments BUN (test code = BUN) 26 7-22 [place] [address]-03-17 15:55:00 Test Item Value Reference Range Interpretation Comments Sodium Lvl (test code = Sodium Lvl) 139 135-145 [place] 520356-03-17 15:55:00 Test Item Value Reference Range Interpretation Comments Glucose Lvl (test code = Glucose Lvl) 157 70-99 [facility]2016-03-17 15:55:00 Test Item Value Reference Range Interpretation Comments Calcium Lvl (test code = Calcium Lvl) 9.2 8.5-10.5 [place] 520356-03-17 15:55:00 Test Item Value Reference Range Interpretation Comments AGAP (test code = AGAP) 14.8 10.0-20.0 [place] [address]-03-17 15:55:00 Test Item Value Reference Range Interpretation Comments RBC (test code = RBC) 4.07 4.70-6.10 [place] [address]-03-17 15:55:00 Test Item Value Reference Range Interpretation Comments WBC (test code = WBC) 17.5 3.7-10.4 [place] [address]-03-17 15:55:00 Test Item Value Reference Range Interpretation Comments Hgb (test code = Hgb) 12.7 14.0-18.0 [place] [address]-03-17 15:55:00 Test Item Value Reference Range Interpretation Comments MCV (test code = MCV) 93.0 80.0-94.0 [place] [address]-03-17 15:55:00 Test Item Value Reference Range Interpretation Comments Hct (test code = Hct) 37.8 42.0-54.0 [place] 875716-03-17 15:55:00 Test Item Value Reference Range Interpretation Comments RDW (test code = RDW) 13.5 11.5-14.5 [facility]DqesabgUOZUMLGJVW8076-74-44 15:55:00 Test Item Value Reference Range Interpretation Comments MCHC (test code = MCHC) 33.7 32.0-36.0 [facility]PgvmsagCGGKUPBTDA6968-37-65 15:55:00 Test Item Value Reference Range Interpretation Comments MPV (test code = MPV) 8.3 7.4-10.4 [facility]ervilleCbszbzrDWDEEANSZN3381-72-65 15:55:00 Test Item Value Reference Range Interpretation Comments Platelet (test code = Platelet) 198 133-450 [facility]ervilleMqzaupqLPABAYSTWM7292-42-95 15:55:00 Test Item Value Reference Range Interpretation Comments MCH (test code = MCH) 31.3 pg 27.0-31.0 [facility]ervilleMekxayzVCUHOUZPQZ6620-56-26 15:55:00 Test Item Value Reference Range Interpretation Comments Plt Morph (test code = Normal (05/05/15 10:55 Plt Morph) AM) [facility]ervilleEjocoobISROEAAQHC4842-33-75 15:55:00 Test Item Value Reference Range Interpretation Comments Lymphocytes # (test code = Lymphocytes 2.1 1.0-5.5 #) [facility]ervilleDfxktfnMPWDVAKAHJ9115-95-08 15:55:00 Test Item Value Reference Range Interpretation Comments Segs-Bands # (test code = Segs-Bands #) 14.9 1.5-8.1 [facility]ervilleJxzlkjsPWUHWWBNJH8940-58-13 15:55:00 Test Item Value Reference Range Interpretation Comments Monocytes # (test code 0.5 See_Comment [Aut omated message] The = Monocytes #) system which generated this result tra nsmitted reference range : <=0.8. The reference r ryan was not used to int erpret this result as normal/abnormal . [facility]ervilleVkfvujbJTOKEVXCJQ8422-90-18 15:55:00 Test Item Value Reference Range Interpretation Comments Segs (test code = Segs) 83.0 45.0-75.0 [facility]ervilleLowtjgcZWHYFSYNTO6568-09-71 15:55:00 Test Item Value Reference Range Interpretation Comments RBC Morph (test code = Normal (05/05/15 10:55 RBC Morph) AM) [facility]ervilleAollpxuDGGQWMLSTO5912-69-25 15:55:00 Test Item Value Reference Range Interpretation Comments Monocytes (test code = Monocytes) 3.0 2.0-12.0 [facility] CenterXiduutnQZEOMAVBCM1796-33-32 15:55:00 Test Item Value Reference Range Interpretation Comments Atypical Lymphs (test code = Atypical 0.0 Lymphs) [facility]ervilleIlmxppaOEYUBQPZKR5126-98-70 15:55:00 Test Item Value Reference Range Interpretation Comments Lymphocytes (test code = Lymphocytes) 12.0 20.0-40.0 [facility]ervilleDnbmzprMZDMRVBHSH7875-04-46 15:55:00 Test Item Value Reference Range Interpretation Comments Bands (test code = 2.0 See_Comment [Automat ed message] The Bands) system which ge nerated this result transmit tino reference range : <=11.0. The reference r ryan was not used to interpr et this result as debra l/abnormal. [facility] JDPCHDNLB8022-12-52 15:55:00 Test Item Value Reference Range Interpretation Comments Hgb A1C (test code = Hgb A1C) 7.3 [facility]2016-03-17 15:55:00 Test Item Value Reference Range Interpretation Comments eGFR (test code = eGFR) 89 [facility]2016-03-17 15:55:00 Test Item Value Reference Range Interpretation Comments CO2 (test code = CO2) 30 24-32 [facility]2016-03-17 15:55:00 Test Item Value Reference Range Interpretation Comments Chloride Lvl (test code = Chloride Lvl) 99 95-109 [facility]2016-03-17 15:55:00 Test Item Value Reference Range Interpretation Comments Potassium Lvl (test code = Potassium 4.8 3.5-5.1 Lvl) [facility]2016-03-17 15:55:00 Test Item Value Reference Range Interpretation Comments Creatinine Lvl (test code = Creatinine 0.83 0.50-1.40 Lvl) [facility]2016-03-17 15:55:00 Test Item Value Reference Range Interpretation Comments BUN (test code = BUN) 26 7-22 [facility]2016-03-17 15:55:00 Test Item Value Reference Range Interpretation Comments Sodium Lvl (test code = Sodium Lvl) 139 135-145 [facility]2016-03-17 15:55:00 Test Item Value Reference Range Interpretation Comments Glucose Lvl (test code = Glucose Lvl) 157 70-99 [facility] CUZKZ1847-88-17 15:55:00 Test Item Value Reference Range Interpretation Comments Calcium Lvl (test code = Calcium Lvl) 9.2 8.5-10.5 [facility]2016-03-17 15:55:00 Test Item Value Reference Range Interpretation Comments AGAP (test code = AGAP) 14.8 10.0-20.0 [facility]ervilleWuarbjaZBVZQYAKKX1215-94-67 15:55:00 Test Item Value Reference Range Interpretation Comments RBC (test code = RBC) 4.07 4.70-6.10 [facility]ervilleLmlhghqILDEQNIABN8287-47-32 15:55:00 Test Item Value Reference Range Interpretation Comments WBC (test code = WBC) 17.5 3.7-10.4 [facility]ervilleIbpykqrLPKRTLFSAO4712-35-21 15:55:00 Test Item Value Reference Range Interpretation Comments Hgb (test code = Hgb) 12.7 14.0-18.0 [facility]ervilleQddzqxzYEZTKSAZLK4370-84-68 15:55:00 Test Item Value Reference Range Interpretation Comments MCV (test code = MCV) 93.0 80.0-94.0 [facility]ervilleQvunpzuVQEFDZJXOY6128-10-87 15:55:00 Test Item Value Reference Range Interpretation Comments Hct (test code = Hct) 37.8 42.0-54.0 [facility]ervilleWbemfpoOPVECFQLMZ4035-63-62 15:55:00 Test Item Value Reference Range Interpretation Comments RDW (test code = RDW) 13.5 11.5-14.5 [facility]ervilleHwvbifzBNXWNUOBSH3750-94-09 15:55:00 Test Item Value Reference Range Interpretation Comments MCHC (test code = MCHC) 33.7 32.0-36.0 [facility]ervilleDykjsykUAXTGWSZDR8959-55-07 15:55:00 Test Item Value Reference Range Interpretation Comments MPV (test code = MPV) 8.3 7.4-10.4 [facility]NluyofxXLUFGLFGHA1683-22-22 15:55:00 Test Item Value Reference Range Interpretation Comments Platelet (test code = Platelet) 198 133-450 [facility]ervilleMkhefsbILKLHEKFVQ0251-94-20 15:55:00 Test Item Value Reference Range Interpretation Comments MCH (test code = MCH) 31.3 pg 27.0-31.0 [place] 875716-03-17 15:55:00 Test Item Value Reference Range Interpretation Comments Plt Morph (test code = Normal (05/05/15 10:55 Plt Morph) AM) [facility]ervilleEvookiqWIXCRLRFCU5106-13-95 15:55:00 Test Item Value Reference Range Interpretation Comments Lymphocytes # (test code = Lymphocytes 2.1 1.0-5.5 #) [facility]ervilleAhsdknxHZQPRRVKKY5692-95-09 15:55:00 Test Item Value Reference Range Interpretation Comments Segs-Bands # (test code = Segs-Bands #) 14.9 1.5-8.1 [place] 875716-03-17 15:55:00 Test Item Value Reference Range Interpretation Comments Monocytes # (test code 0.5 See_Comment [Aut omated message] The = Monocytes #) system which generated this result tra nsmitted reference range : <=0.8. The reference r ryan was not used to int erpret this result as normal/abnormal . [facility]ervilleJgqzavlDNZEGTLUUK5257-93-58 15:55:00 Test Item Value Reference Range Interpretation Comments Segs (test code = Segs) 83.0 45.0-75.0 [place] [address]-03-17 15:55:00 Test Item Value Reference Range Interpretation Comments RBC Morph (test code = Normal (05/05/15 10:55 RBC Morph) AM) [facility]NgpzgigJGQGSIJHTR7280-68-27 15:55:00 Test Item Value Reference Range Interpretation Comments Monocytes (test code = Monocytes) 3.0 2.0-12.0 [facility]ervilleFydsxtlSSVQEUHTTB7746-48-82 15:55:00 Test Item Value Reference Range Interpretation Comments Atypical Lymphs (test code = Atypical 0.0 Lymphs) [facility]ervilleTorjrifALCKJIGCYT4757-28-94 15:55:00 Test Item Value Reference Range Interpretation Comments Lymphocytes (test code = Lymphocytes) 12.0 20.0-40.0 [facility]ervilleDmxzcirBHNGCYXQZM5347-41-97 15:55:00 Test Item Value Reference Range Interpretation Comments Bands (test code = 2.0 See_Comment [Automat ed message] The Bands) system which ge nerated this result transmit tino reference range : <=11.0. The reference r ryan was not used to interpr et this result as debra l/abnormal. [facility] HBLCXZUUK2113-59-81 15:55:00 Test Item Value Reference Range Interpretation Comments Hgb A1C (test code = Hgb A1C) 7.3 [facility]2016-03-17 15:55:00 Test Item Value Reference Range Interpretation Comments eGFR (test code = eGFR) 89 [facility]2016-03-17 15:55:00 Test Item Value Reference Range Interpretation Comments CO2 (test code = CO2) 30 24-32 [facility]2016-03-17 15:55:00 Test Item Value Reference Range Interpretation Comments Chloride Lvl (test code = Chloride Lvl) 99 95-109 [facility]2016-03-17 15:55:00 Test Item Value Reference Range Interpretation Comments Potassium Lvl (test code = Potassium 4.8 3.5-5.1 Lvl) [facility]2016-03-17 15:55:00 Test Item Value Reference Range Interpretation Comments Creatinine Lvl (test code = Creatinine 0.83 0.50-1.40 Lvl) [facility]2016-03-17 15:55:00 Test Item Value Reference Range Interpretation Comments BUN (test code = BUN) 26 7-22 [facility]2016-03-17 15:55:00 Test Item Value Reference Range Interpretation Comments Sodium Lvl (test code = Sodium Lvl) 139 135-145 [facility]2016-03-17 15:55:00 Test Item Value Reference Range Interpretation Comments Glucose Lvl (test code = Glucose Lvl) 157 70-99 [facility]2016-03-17 15:55:00 Test Item Value Reference Range Interpretation Comments Calcium Lvl (test code = Calcium Lvl) 9.2 8.5-10.5 [facility]2016-03-17 15:55:00 Test Item Value Reference Range Interpretation Comments AGAP (test code = AGAP) 14.8 10.0-20.0 [facility] CenterEqquhblJTOICAWXTL7104-18-89 15:55:00 Test Item Value Reference Range Interpretation Comments RBC (test code = RBC) 4.07 4.70-6.10 [facility]TjtcnxnTHVEQCSCIN7475-50-23 15:55:00 Test Item Value Reference Range Interpretation Comments WBC (test code = WBC) 17.5 3.7-10.4 [facility]IjkaihqRGDXOEODSW4367-54-20 15:55:00 Test Item Value Reference Range Interpretation Comments Hgb (test code = Hgb) 12.7 14.0-18.0 [facility]IhxjumeRWGZVAGSKS3439-85-13 15:55:00 Test Item Value Reference Range Interpretation Comments MCV (test code = MCV) 93.0 80.0-94.0 [facility]ervilleYhgqxttRTVPSQGXJB5526-60-93 15:55:00 Test Item Value Reference Range Interpretation Comments Hct (test code = Hct) 37.8 42.0-54.0 [facility]ervilleWyknyphKBBCKBUDJC6130-34-53 15:55:00 Test Item Value Reference Range Interpretation Comments RDW (test code = RDW) 13.5 11.5-14.5 [facility]ervilleYtylpfxWUQCJBPVXG6642-01-64 15:55:00 Test Item Value Reference Range Interpretation Comments MCHC (test code = MCHC) 33.7 32.0-36.0 [facility]ervilleOfrhhxtQHKHDLCOWQ6570-02-15 15:55:00 Test Item Value Reference Range Interpretation Comments MPV (test code = MPV) 8.3 7.4-10.4 [facility]ervilleDmxbrpeHUTQHTGROL9897-08-48 15:55:00 Test Item Value Reference Range Interpretation Comments Platelet (test code = Platelet) 198 133-450 [facility]ervilleEsmjhxyPFGDGBZZWB6711-83-31 15:55:00 Test Item Value Reference Range Interpretation Comments MCH (test code = MCH) 31.3 pg 27.0-31.0 [facility]ervilleUtgjbwlXQOIWLZZWS5915-76-20 15:55:00 Test Item Value Reference Range Interpretation Comments Plt Morph (test code = Normal (05/05/15 10:55 Plt Morph) AM) [facility]ervilleIgwtuyrJRJQHKFVXW7797-47-17 15:55:00 Test Item Value Reference Range Interpretation Comments Lymphocytes # (test code = Lymphocytes 2.1 1.0-5.5 #) [facility]ervilleJivggvtPGXVFCPQUW8135-30-23 15:55:00 Test Item Value Reference Range Interpretation Comments Segs-Bands # (test code = Segs-Bands #) 14.9 1.5-8.1 [facility]ervilleYjtmcdtEIFJGHCMWS4109-78-97 15:55:00 Test Item Value Reference Range Interpretation Comments Monocytes # (test code 0.5 See_Comment [Aut omated message] The = Monocytes #) system which generated this result tra nsmitted reference range : <=0.8. The reference r ryan was not used to int erpret this result as normal/abnormal . [facility] CenterCwrobhjYGQAFCDPMO6453-45-43 15:55:00 Test Item Value Reference Range Interpretation Comments Segs (test code = Segs) 83.0 45.0-75.0 [facility] CenterXybkmjsICGIKXQCOH2283-72-62 15:55:00 Test Item Value Reference Range Interpretation Comments RBC Morph (test code = Normal (05/05/15 10:55 RBC Morph) AM) [facility] CenterFgapvejGXLSMRVKHP5517-44-42 15:55:00 Test Item Value Reference Range Interpretation Comments Monocytes (test code = Monocytes) 3.0 2.0-12.0 [facility] CenterNkuvtumTJLCBYKALK8779-73-71 15:55:00 Test Item Value Reference Range Interpretation Comments Atypical Lymphs (test code = Atypical 0.0 Lymphs) [facility] CenterFdwyskoUVFKGHSQRC4430-63-88 15:55:00 Test Item Value Reference Range Interpretation Comments Lymphocytes (test code = Lymphocytes) 12.0 20.0-40.0 [facility] CenterPujtttnSALBCJLNDU6665-93-55 15:55:00 Test Item Value Reference Range Interpretation Comments Bands (test code = 2.0 See_Comment [Automat ed message] The Bands) system which ge nerated this result transmit tino reference range : <=11.0. The reference r ryan was not used to interpr et this result as debra l/abnormal. [facility] CTHPEWKNF1482-16-17 15:55:00 Test Item Value Reference Range Interpretation Comments Hgb A1C (test code = Hgb A1C) 7.3 [facility] Notes Date/Time Note Provider Source 2022-06-01 [id number] [facility] 08:45:00-00:[address] [place] [id number] PATIENT NAME: CRYSTAL DICKEY ADMIT DATE: 05/30/22 ACCOUNT NO: [id number] ROOM NO: [facility] AGE: 77 REPORT TYPE: CARDIAC CATHETERIZATION REPORT SEX: M ADMITTING PHYSICIAN:Alverto Benavides MD ATTENDING PHYSICIAN:Yg Schroeder MD PROCEDURE DATE: PROCEDURE PERFORMED: Left atrial appendage closu re using 31 mm Watchman FLX closure device. INDICATIONS: Atrial fibrillation, high CHADS-VAS c score, intolerant of anticoagulant. ACCESS: Right femoral vein, 16-Malay closed wit h jrsdnc-dk-ssxos suture. COMPLICATIONS: None. BLEEDING: Less than 20 mL. DESCRIPTION OF PROCEDURE: After risks, benefits and alternatives were explained, the patient agreed to proceed and sig valerio informed consent. The patient was brought into the cardiac catheteriza tion laboratory, prepped and draped in sterile fashion. Then, I accessed the right femoral vein using ultrasound guidance, micropuncture kit, and plac ed 8-Malay Archbald sheath, gave a partial dose of heparin and then I took S L1 sheath into the SVC over a wire with the Gaston needle inside and descended into interatrial septum in the low mid position. Transseptal puncture was perfo rmed and LA pressure was measured at 13 mmHg. We then gave a full dose of heparin to assure ACT level above 250 throughout the procedure. I sent a Pro Track wire into the left atrium, exchanged the SL1 sheath for a W atchman double curve sheath and then I sent a pigtail through into the left atr ium, navigated that into the appendage and telescoped the Watchman sheath over it into the appendage and appendage angiogram was performed. Subsequently, I determi valerio a 31 mm device will be suitable for closure. The device was prepped and deaired in the usual sterile fashion and the pigtail was removed and after good a bleed back from the sheath and positive flush through t he delivery system, delivery system was advanced and secured in position and then device was deployed under KG and fluoroscopy guidance and PASS criteria were evaluate d and met, as such device was released and then Watchman sheath was removed. Co ok sheath was removed. Fjirgv-go-plgva suture was used for closure with good hemostasis . The patient was sent to recovery in stable condition. CONCLUSION: Successful left atrial appendage zara sure using 31 mm Watchman FLX closure device. Dictated By: Alverto Benavides MD Date Dictated: 06/01/2022 08:45:07 PATIENT NAME: CRYSTAL DICKEY 19 Date Transcribed: 06/01/2022 09:34:01 /JANELL Receipt ID: [id number] Authenticated by Alverto Benavides MD On 08/28/2022 10:54:14 AM Electronically Signed by Alverto Benavides MD on at 1054 PATIENT NAME: CYRSTAL DICKEY 219 2022-05-30 [id number] [facility] 13:42:00-00:[address] [place] [address] PATIENT NAME: CRYSTAL DICKEY ADMIT DATE: 05/30/22 ACCOUNT NO: [id number] ROOM NO: [facility] AGE: 76 REPORT TYPE: eECHOCARDIOGRAM REPORT SEX: M ADMITTING PHYSICIAN:Alverto Benavides MD ATTENDING PHYSICIAN:Yg Schroeder MD *[place] [address] Limited Transthoracic Echocardiogram Patient: Crystal Dickey Study Date: 05/30/2022 BP: Location: [facility] URN: [id number] [id number] : 1945 Age: 76 Height: 69 in / 175.3 cm Gender: M Weight: 220 lb / 100 kg BMI/BSA: 32.6 kg/m 2 / 2.24 m 2 *Ordering Physician: * Kota Murillo *Interpreting Physician: * Yg Schroeder MD *Marketing Data Specialist: Agustina Trejo RDCS Indications: S/P WATCHMAN. Study data: Transthoracic echocardiogram, limite d study. Limited 2D and limited spectral Doppler. Location: Bedside. Patient room number: PACU. Findings Left ventricle: The estimated ejection fraction is 50-54%. Pericardium: There is no pericardial effusion. Measurements Left ventricle Value Ref CARMELO, LAX 4.6 cm 4.2 - 5.8 PATIENT NAME: CRYSTAL DICKEY 19 ESD, LAX 3.4 cm 2.5 - 4.0 ESD/bsa, LAX 1.5 cm/m 2 1.3 - 2.1 FS, LAX 25 % 25 - 43 PW, ED 1.2 cm 0.6 - 1.0 IVS/PW, ED 1.02 --------- EF 50 % 52 - 72 Ventricular septum Value Ref IVS, ED 1.2 cm 0.6 - 1.0 Tricuspid valve Value Ref TR peak v 2.9 m/sec <=2.8 Peak RV-RA grad, S 34 mm Hg --------- Conclusions Summary: 1. Left ventricle: The estimated ejection fracti on is 50-54%. 2. Pericardium, extracardiac: There is no perica rdial effusion. Prepared and electronically signed by gY Schroeder MD 05/30/2022 13:41 Electronically Signed by Yg Schroeder MD on 0 05/30/22 at 1342 PATIENT NAME: CRYSTAL DICKEY 19 2022-05-30 [facility] 12:45:00-00:00 [facility] ([facility]) Discharge Summary REPORT#:[id number] REPORT STATUS: Signed DATE:05/30/22 TIME: 1245 PATIENT: CRYSTAL DICKEY UNIT #: [id number] ROOM/BED: [place] [address] : 44 AGE: 76 SEX: M ATTEND: Sergey Scrhoeder MD ADM AUTHOR: Kota Murillo TANNING WHEEL FILLER * ALL edits or amendments must be made on the [employer]/computer document * Kota Murillo 05/30/22 1245: PCP PCP Discharge to: home General Information Discharge date: 05/30/22 Discharge diagnosis: AFIB Hospital course: Patient with long standing p ersistent atrial fibrillation, CHADSVASC score of 4, and intolerance to long-term anticoagulation due to fall risk. Patient is s/p successful implantation of a 31mm Watchman device in the left atrial appendage. Patient tolerated the procedure without post-op complications. No thrombus was identified in the pre-/intra-op KG. Postoperatively, chest x-ray is negative for any acute process. Post-op echo did not show a pericardial effusion. Patient ambulated without an y difficulty, and heart rate and blood pressure are stable. Right groin suture removed by this PARANORMAL INVESTIGATOR. No infect ion, bleeding, or hematoma. Dermabond applied and intact. Patient was provided with post-Watchman discharg e instructions. Patient is to follow up with PCP and ux consultant in 1 to 2 we eks post discharge. Patient is to follow up with ux consultant for th e 45-day KG, and for anticoagulation recommendation. Patient is to continue Eliquis for 6 weeks, then transition to aspirin and Plavix. Duration of aspirin is lifelong. Duration of Plavix is 6 months post 45-day KG. Post-Watchman discharge instructions given to th e patient who verbalized understanding, and patient w as instructed to report any complaints of chest pain , shortness of breath, lightheadedness, or dizzi ness to the ux consultant. Dispo: It is medically necessary that patients u ndergoing percutaneous left atrial appendage occlusion are admitted as an in patient. This patient had a recovery that was earlier than expected and can be discharged today. Med Rec PCP PCP: PCP: No Primary or Family Physician Med Rec Discharge meds: Continue taking these medications: AMIODARONE (PACERONE) 200 MG TAB 200 MILLIGRAM ORAL TWICE DAILY. Dapagliflozin Propanediol (FARXIGA) 10 MG TAB 10 MILLIGRAM ORAL DAILY. sitaGLIPtin (JANUVIA) 100 MG TAB 100 MILLIGRAM ORAL DAILY. OMEPRAZOLE ER (PriLOSEC) 40 MG CAP.DR 40 MILLIGRAM ORAL DAILY. OXYBUTYNIN (DITROPAN) 5 MG TAB 5 MILLIGRAM ORAL DAILY. PARoxetine HCL (PAXIL) 20 MG TAB 20 MILLIGRAM ORAL BEDTIME. LOSARTAN (COZAAR) 25 MG TAB 25 MILLIGRAM ORAL DAILY. SIMVASTATIN (ZOCOR) 40 MG TAB 40 MILLIGRAM ORAL BEDTIME. GABAPENTIN (NEURONTIN) 300 MG CAP 300 MILLIGRAM ORAL TWICE DAILY. GABAPENTIN (NEURONTIN) 300 MG CAP 300 MILLIGRAM ORAL BEDTIME. Instructions: TAKES AN EXTRA 300MG CAP TO EQUAL 600MG IN THE EVENING DICLOFENAC SODIUM (DICLOFENAC SODIUM 1%) 1 % GEL 1 APPLIC TOPICAL FOUR TIMES DAILY NEEDED. as needed for PAIN DORZOLAMIDE/TIMOLOL (COSOPT 2%-0.5% OPHTH) 22.3 MG-6.8 MG/ML OPHTH.SOLN 1 DROPS EACH EYE EVERY 12 HOURS. LATANOPROST (XALATAN 0.005% OPHTH SOLN) 0.005 % OPHTH.SOLN 1 DROPS EACH EYE BEDTIME. AZELASTINE (ASTELIN NASAL) 137 MCG (0.1 %) SPRAY 1 SPRAY NASAL DAILY. FEXOFENADINE (TAISHA ALLERGY) 180 MG TAB 180 MILLIGRAM ORAL DAILY NEEDED. as needed f or ALLERGIES CETIRIZINE (CETIRIZINE) 10 MG TAB 10 MILLIGRAM ORAL BEDTIME. ASCORBIC ACID (VITAMIN C) 1,000 MG TAB 1,000 MILLIGRAM ORAL DAILY. IBUPROFEN (ADVIL) 200 MG TAB 200 MILLIGRAM ORAL EVERY 4 HOURS NEEDED. as needed for PAIN ACETAMINOPHEN (TYLENOL) 500 MG TAB 500 MILLIGRAM ORAL EVERY 4 HOURS NEEDED. as needed for PAIN [BITTER MELON] 2 TABLETS ORAL DAILY. ALPHA LIPOIC ACID (ALPHA LIPOIC ACID) 100 MG CAP 600 MILLIGRAM ORAL DAILY. MULTIVITAMIN (MULTIPLE VITAMIN) 1 TAB TAB [AREDS-2] 1 TABLET ORAL TWICE DAILY. CHOLECALCIFEROL (VITAMIN D3) (VITAMIN D3) 125 MC G (5,000 UNIT) TAB 5,000 UNITS ORAL DAILY. ASPIRIN EC (ECOTRIN) 81 MG TAB.EC 81 MILLIGRAM ORAL DAILY. Start taking the following new medications: APIXABAN (ELIQUIS) 5 MG TAB 5 MILLIGRAM ORAL TWICE DAILY. Days = 30 Qty = 60 Refills = 3 Objective VS/I O Last Documented: Result Date Time B/P 126/65 05/28 143 Pulse 70 05/28 1433 Resp 18 05/28 1433 PATIENT WEIGHT: Weight (lb): 220 Weight (oz): 7.4 Weight (kg): 100.000 General appearance: alert, awake, oriented Cardiovascular: irregular rhythm Respiratory: clear to auscultation, no distress GI: soft, non-tender Extremities: moves all Neuro/TUB CHUCKER: alert, oriented X 3 Skin: dry Wound/incision: Location: Right groin suture removed by this PARANORMAL INVESTIGATOR. No infect ion, bleeding, or hematoma. Dermabond applied and intact. Results Findings/Data: Laboratory Tests: 05/30 05/30 05/30 1202 1129 0934 Chemistry POC Glucose (70 - 110 MG/DL) 132 H 154 H Coagulation Activated Coag Time (74 - 137 SEC) 281 H Treatments Procedures Treatments Procedures: Left atrial appendage closure using 31 mm Watchm an FLX closure device. Imaging: Recent Impressions: RADIOLOGY - XR CHEST 2 V 05/28 1451 Report Impression - Status: SIGNED Entered: 05/28/2022 1506 IMPRESSION: No acute cardiopulmonary findings Impression By: [id number] - Alesha Ackerman D.O. Discharge Instructions PCP PCP: PCP: No Primary or Family Physician )( Discharge to: Home/Self Care Discharge Instructions Additional Discharge Routines: Attending Follow- Up )( Diet: Cardiac )( Activity: As Tolerated Follow-up Appointments Attending Physician: Attending Physician: Alverto Benavides MD Attending physician follow up timeframe: In 1-2 weeks Quality: Discharge Advanced Care Plan 65 or Older Discussed with: patient EldaYg 05/30/22 1709: Attestations Physician Attestation Agree w/findings plan: I have seen the pt, I Agree with the findings and plan as documented by Kota Murillo. Electronically Signed by Kota MurilloP o n 05/30/22 at 1527 Electronically Signed by Yg Schroeder MD on at 1711 RPT #:[id number] END OF REPORT 2022-05-30 [id number] [facility] 12:09:00-00:[address] [place] [address] PATIENT NAME: CRYSTAL DICKEY ADMIT DATE: 05/30/22 ACCOUNT NO: [id number] ROOM NO: [facility] AGE: 76 REPORT TYPE: eELECTROCARDIOGRAM REPORT SEX: M ADMITTING PHYSICIAN:Alverto Benavides MD ATTENDING PHYSICIAN:Yg Schroeder MD Order: [id number] Test Reason : SP WATCHMAN Test Date/Time Stamp: SatMay 30 2022 12:09:16 Blood Pressure : / mmHG Vent. Rate : 076 BPM Atrial Rate : 063 BPM P-R Int : 000 ms QRS Dur : 110 ms QT Int : 432 ms P-R-T Axes : 000 019 -22 degree s QTc Int : 486 ms Atrial fibrillation Cannot rule out Inferior infarct Nonspecific T wave abnormality Abnormal ECG When compared with ECG of 28-MAY-2022 14:38, Significant changes have occurred Confirmed by TYRON DOTSON, SHAYLA ([id number]) on 05/19 12:51:32 PM Referred By: Alverto Benavides Confirmed by:JAIMIE ACKERMAN MD at 1251 PATIENT NAME: CRYSTAL DICKEY 2022-05-28 [facility] 15:18:00-00:00 [facility] ([facility]) Hospitalist History Physical REPORT#:[id number] REPORT STATUS: Signed DATE:05/28/22 TIME: 1518 PATIENT: CRYSTAL DICKEY UNIT #: [id number] ROOM/BED: : 44 AGE: 76 SEX: M ATTEND: Medina Benavides MD ADM AUTHOR: Shyam Colvin MD * ALL edits or amendments must be made on the [employer]/computer document * History of Present Illness HPI Chief complaint: PREOP EVAL FOR WATCHMAN PCP: PCP: No Primary or Family Physician HPI: 76 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 AT PRESENT HE HAS NO C/O CP/SOB/DIZZINESS/F/C/CO UGH/N/V/D/GI SX. HE NORMALLY WEARS A FOOT BRACE DUE TO FOOT DROP OR USE ADDITIONAL WALKER/CANE FOR AMBULATION. HIS GLUCOSE AT HOME RUNS <200, L AST HGBA1C <7%. 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 HE HAS A LIVING WILL, AND POA (/DAUGHTER. HE WISHES FULL CODE. Medication/Allergy-Vaccine Hx Medications: Home Medications: AMIODARONE (PACERONE) 200 MG PO BID Dapagliflozin Propanediol (FARXIGA) 10 MG PO TESFAYE LY sitaGLIPtin (JANUVIA) 100 MG PO DAILY OMEPRAZOLE ER (PriLOSEC) 40 MG PO DAILY OXYBUTYNIN (DITROPAN) 5 MG PO DAILY PARoxetine HCL (PAXIL) 20 MG PO BEDTIME LOSARTAN (COZAAR) 25 MG PO DAILY SIMVASTATIN (ZOCOR) 40 MG PO BEDTIME GABAPENTIN (NEURONTIN) 300 MG PO BID GABAPENTIN (NEURONTIN) 300 MG PO BEDTIME DICLOFENAC SODIUM (DICLOFENAC SODIUM 1%) 1 APPLI C TOPICAL QID PRN PRN PAIN DORZOLAMIDE/TIMOLOL (COSOPT 2%-0.5% OPHTH) 1 PHILIPPE P EACH EYE Q12H LATANOPROST (XALATAN 0.005% OPHTH SOLN) 1 DROP E ACH EYE BEDTIME AZELASTINE (ASTELIN NASAL) 1 SPRAY NASAL DAILY FEXOFENADINE (TAISHA ALLERGY) 180 MG PO DAILY P RN PRN ALLERGIES CETIRIZINE 10 MG PO BEDTIME ASCORBIC ACID (VITAMIN C) 1,000 MG PO DAILY IBUPROFEN (ADVIL) 200 MG PO Q4H PRN PRN PAIN ACETAMINOPHEN (TYLENOL) 500 MG PO Q4H PRN PRN PA IN [BITTER MELON] 2 TABS PO DAILY ALPHA LIPOIC ACID 600 MG PO DAILY MULTIVITAMIN (MULTIPLE VITAMIN) [AREDS-2] 1 TAB PO BID CHOLECALCIFEROL (VITAMIN D3) (VITAMIN D3) 5,000 UNITS PO DAILY ASPIRIN EC (ECOTRIN) 81 MG PO DAILY Allergies: Coded Allergies: amlodipine (Intermediate, SWELLING, JOINT ANKLE 05/28/22) brimonidine (Mild, EYE IRRITATION AND ITCHING ) travoprost (From TRAVATAN Z) (Mild, EYE IRRITATI ON AND ITCHING 05/28/22) Review of Systems Free Text ROS Notes Free Text ROS Notes: 12 POINT ROS WERE REVIEWED AND NEGATIVE. OBJECTIVE VS/I O: Patient Weight and BMI Weight (kg): 100.000 BMI: 32.6 Medications: Active Meds + DC'd Last 24 Hrs Sodium Chloride (SODIUM CHLORIDE 0.9%) 500 ML DIR IV Lidocaine HCl (LIDOCAINE HCL/PF) 2 ML PREOP LOCA L Acetaminophen (TYLENOL EXTRA STRENGTH) 1,000 MG PREOP ONCALL PO (CKD) Lactated Ringer's (LACTATED RINGERS) 1,000 ML WA EOP ONCALL IV Lidocaine HCl (LIDOCAINE HCL/PF) 2 ML PREOP ONCA LL LOCAL Lidocaine HCl (LIDOCAINE HCL/PF) 2 ML PREOP ONCA LL LOCAL Sodium Chloride (SODIUM CHLORIDE 0.9%) 500 ML WA EOP ONCALL IV Sodium Chloride (SODIUM CHLORIDE 0.9%) 500 ML WA EOP ONCALL IV Sodium Chloride (SODIUM CHLORIDE 0.9%) 1,000 ML PREOP ONCALL IV Sodium Chloride (SODIUM CHLORIDE) 5 ML ASDIR PRN IV Sodium Chloride (SODIUM CHLORIDE) 10 ML ASDIR WA N IV Sodium Chloride (SODIUM CHLORIDE 0.9%) 250 ML DIR PRN IV General appearance: alert, awake, oriented Neck: no JVD Cardiovascular: irregularly irregular, normal he art sounds Respiratory: aerating well, clear to auscultatio n Abdomen: non-tender, normal bowel sounds, soft Extremities: no edema Musculoskeletal: normal inspection Neuro/TUB CHUCKER: alert, oriented X 3, normal speech, n o motor deficits Skin: normal color Psychiatry: normal affect, normal judgment/insig ht Results Radiology data: Recent Impressions: RADIOLOGY - XR CHEST 2 V 05/28 1451 Report Impression - Status: SIGNED Entered: 05/28/2022 1506 IMPRESSION: No acute cardiopulmonary findings Impression By: [id number] - Alesha Ackerman D.O. Diagnosis, Assessment Plan Free Text A P: CHRONIC A.FIB (DX BY HIS APPLE WATCH) AT RISK FO R FALLS, AND FREQUENT FALLS - CARD SEEN, PLAN FOR WATCHMAN, ON ASA ONLY NOW DM II - GOOD, LAB PENDING, HGBA1C <7% AT HOME HTN - GOOD DVT PX - CAN AMBULATE, MAY NEED SCD/LOVENOX WHEN IN HOSPITAL Quality: Gen Med Crit Care VTE Prophylaxis VTE prophylaxis initiated: yes Advanced Care Plan 65 or Older Discussed with: patient Discussion included: living will, power of attor judith, code status, FULL CODE Electronically Signed by Shyam Colvin MD on 05/28 at 1525 RPT #:[id number] END OF REPORT 2022-05-28 [id number] [facility] 14:38:00-00:[address] [place] [address] PATIENT NAME: CRYSTAL DICKEY ADMIT DATE: ACCOUNT NO: [id number] ROOM NO: AGE: 76 REPORT TYPE: eELECTROCARDIOGRAM REPORT SEX: M ADMITTING PHYSICIAN:Alverto Benavides MD ATTENDING PHYSICIAN:Alverto Benavides MD Order: [id number] Test Reason : PREOP Test Date/Time Stamp: SatMay 28 2022 14:38:51 Blood Pressure : / mmHG Vent. Rate : 061 BPM Atrial Rate : 078 BPM P-R Int : 000 ms QRS Dur : 098 ms QT Int : 414 ms P-R-T Axes : 000 027 037 degree s QTc Int : 416 ms Atrial fibrillation Incomplete right bundle branch block Cannot rule out Anterior infarct , age undetermi valerio Abnormal ECG No previous ECGs available Confirmed by SHAYLA ACKERMAN MD ([id number]) on 05/19 9:57:35 PM Referred By: Alverto Benavides Confirmed by:HEMALATHA ACKERMAN MD at 2157 PATIENT NAME: CRYSTAL DICKEY 2021-05-09 [facility] 15:49:00-00:00 [facility] ([facility]) DT Operative Note REPORT#:[id number] REPORT STATUS: Signed DATE:05/09/21 TIME: 1549 PATIENT: CRYSTAL DICKEY UNIT #: [id number] ROOM/BED: : 44 AGE: 75 SEX: M ATTEND: Juan Umana MD ADM AUTHOR: Juan Umana MD * ALL edits or amendments must be made on the [employer]/computer document * Operative Report Operative Note Note: Date Of Surgery: 05/09/21 Pre-op Diagnosis: 1. left distal radius fracture malunion 2. left distal radius plate failure Post-op Diagnosis: 1. left distal radius fracture malunion 2. left distal radius plate failure Procedure(s): 1. left radial lengthening for fracture maluion 2. removal of left distal radius plate Surgeon(s): Juan Umana Butter Fat Tester(s): Ken Stauffer Findings: shortened distal radius, 2 broken shaf t screws Implants: Skeletal dynamics gemiinus plate Blood Products Administered: none Anesthesia: general with brachial plexus block Indications for Procedure: Mr Dickey is a 75 year old m debi with a displaced distal radius fracture that was treated around 6 weeks ago. Unfortunately he started weight bearing at around 3- 4 weeks post-op and as a result the plate failed . There were 2 broken screws. Radiographs demonstrate a malunited distal radiu s fracture with significant radial shortening. I have reviewed these finding s with the patient as well as further treatment options including continued no noperative management with closed reduction and casting versus surgical red uction and fixation. I have discussed relative advantages and disadv antages, anticipated outcomes, as well as common and serious complications associated w ith these options. Given the degree of displacement on injury radiogr aphs as well as the dorsal comminution predictive of instability, I have agreed to proceed with a corrective osteotomy and radial lengthening procedure. Informed Consent: I have discussed the risks, be nefits, and alternatives of surgery. The potential complications of this pro cedure include, but are not limited to, bleeding, hematoma, ecchymosis, infe ction, nerve injury, neuroma formation, blood vessel inju ry, tendon injury, tendon adhesions, tendon ruptures , nonunion, malunion, hardware failure, potentia l need for hardware removal, scar tissue that limits rang e of motion of the wrist, intrinsic tightness of the fingers, decreased range of motion of the finger s secondary to scar tissue formation, decreased forearm pronation/s upination, DRUJ instability, potential need for additional surgery for stabilization of the DRUJ, hypertrophic scar, keloid scar, post-traumatic arthritis, postoperative pain, and possible complex regional pain syndrome. Risk s of surgery include but are not limited to bleeding , infection, nerve or vascular injury, stiffness , pain, scarring, non-union, malunion, loss of reduction, implant loosening, breakage, migration, or other implant-related complication s, tendon adhesions, tendon ruptures, as well as the need for possible repeat ope rations. There is the possibility of using allograft bone graft. The patient also understands the nee d for supervised hand therapy following surgery to maximiz e functional outcome. The patient understands these issues well, accepts the potential complications of the surgery, and has provided informed consent for us to proceed. Description Of Operation: The patient was identified by all releva nt parties in the preoperative holding area and the correct operative site was identified and marked. The patient was transferred to the operating room and placed on the OR table in a supine position. All pressure points were padded. A gali gical time out was performed, his identity was confirmed, and the left upper e xtremity verified as the operative site. A dose of antibiotics was given intravenously. A well padded tourniquet was placed about the proximal arm. The extremity was then prepped and draped in the usual sterile fashion. The extremity was exsanguinated with an Esmarch bandage, and the tourniquet inflated to 250 mmHg pressure. A volar a pproach to the radius was performed. A longitudinal incision was made in the distal for earm directly overlying the flexor carpi radialis tendon . The incision was carried down through the skin and subcutaneous tissues, with all dissectio n performed under loupe magnification. The subcutaneous dissection was careful to avoid injury to branches of the lateral antebrachial cutaneous nerve and superfi cial radial nerve nearby. The FCR tendon sheath was divided longitudin ally to expose the FCR tendon. The FCR tendon was retracted ulnarly. The subsheath of t he FCR was divided longitudinally to expose the flexor pollicis longus and pronator quadratus. Care was taken to avoid injury to the nearby radial a rtery and median nerve/palmar cutaneous branch of the median nerve. Parona's s pace between the pronator and overlying flexor tendons was developed onel aleman. The flexor pollicis longus was retracted ulnarly to expose the pronator quadratus. The pronator quadratus was divided longitudinally near its radial border, leaving a cuff for later repair. Subperiosteal dissection was performed to expose the volar aspect of the distal radius. The plate was seen a nd the screws were removed. The 2 broken screws were left in to preserve bone stock. A [employer] volar distal radius locking p late was then selected. The plate was secured distally k-wires. Plate placem ent was confirmed fluoroscopically. Multiple l ocking screws were then placed distally. The screws were then taken out of the plate. K-wires were t hen placed at the site of the malunited distal radius frac ture. The K-wires were placed parallel to the joint as a guide for the osteotomy . A laminar best second jobs was used to distract the distal radius. A non-locking screw was placed into the oblong hole. Then additional locking screws were placed proximally. Fluorosco pic images were obtained in multiple planes to confirm satisfactory fracture reduction with alevism of radial length, inclination, volar tilt on the lateral view, as well as articular congruity. Plate placement, screw length, trajectory, and the absence of intra- articular penetration were likewise confirmed fl uoroscopically. The DRUJ was tested for stability. Excellent stability was no tino through a full arc of forearm rotation, without any laxity, in stability, or crepitation. As such, no DRUJ stabilization procedure was felt to be nece ssary. At this point the wound was irrigated with copio us amounts of sterile saline solution and checked for hemostasis. The pronato r quadratus was repaired with [id number] 3-0 monocryl sutures to achieve complete coverage of the plate and screws. The wound was once again irrigated. The skin was then re- approximated with inverted 4 -0 monocryl dermal sutures followed by interrupted 4 -0 nylon sutures. The tourniquet was then releas ed. Tourniquet time was 65 minutes. All fingers were immediately pink and w ell perfused after release of the tourniquet. Hemostasis w as achieved by the application of direct pressure to the surgical wound. Xeroform gauze followed by a sterile dressing was placed. The patient was then placed in a well-padded short-arm volar splint. He was then awakened and taken to the post-anesthesia care u nit in stable condition. Drains: None Specimens: none Complications: [] Counts: The sponge and needle counts were correc t. Estimated Blood Loss: [] cc Disposition: The patient michael erated the procedure well and was transferred to the recovery room in stable condition. Post-op Plan: The patient was prescribed postope rative pain medication. The patient was asked to elevate the extremity to mi nimize edema. The patient was also instructed to perform finger range of motio n exercises. These were demonstrated in detail and v samuel strongly encouraged, as were forearm pronation/ supination exercises. The pa tient will return to clinic in 10-14 days for splint removal and to begin supervised hand therapy wit h a removable wrist splint. Electronically Signed by Juan Umana MD on 04/19 04/11 at 1609 [facility] #:[id number] END OF REPORT 2021-03-14 [facility] 19:54:00-00:00 [facility] ([facility]) DT Operative Note REPORT#:[id number] REPORT STATUS: Signed DATE:03/14/21 TIME: 1953 PATIENT: CRYSTAL DICKEY UNIT #: [id number] ROOM/BED: : 44 AGE: 75 SEX: M ATTEND: Juan Umana MD ADM AUTHOR: Juan Umana MD * ALL edits or amendments must be made on the el ectronic/computer document * Operative Report Operative Note Note: Date Of Surgery: 03/14/21 Pre-op Diagnosis: 1. left distal radius comminuted intra-articular 4-part fracture Post-op Diagnosis: 1. left distal radius comminuted intra-articular 4-part fracture Procedure(s): 1. Open reduction and internal fixation of left distal radius comminuted intraarticular 4-part fracture. 2. Repair of left Pronator Quadratus 3. left wrist radiographic evaluation Surgeon(s): Juan Umana Butter Fat Tester(s): Ken Stauffer NEED FOR RIBBON LAP MACHINE TENDER: The skilled assistance of Rizwan Stauffer PA-C was necessary during this case. He assiste d with every aspect of the operation including, but not limited to, proper and safe position ing of the patient, obtaining adequate surgical exposure, the jacob nual process of hemostasis during the procedure, and surgical wound closure and removal of th e patient from the operating table and returning the patient back t o the [facility]. His assistance allowed me to perform the most sensitive and technical portion s of this operation using 2 hands, thus enhancing patient safety. This would not be possible without the help of a skilled assistant professor nurse education familiar with the pr ocedure and capable of safely performing the aforementioned tasks. Our [facility] is not a teaching [facility], and as such, no surgical residents or interns we re available to assist. Findings: intra-articular comminuted fracture wi th dorsal comminution and displacement Implants: [employer]keletal [employer] Geminus Volar Plate Blood Products Administered: none Anesthesia: general and brachial plexus block Indications for Procedure: Mr Dickey is a 75 year old active male who [facility] with a history of a left distal radius fracture. Radiographs demonstrate a displaced intra-articular distal radius fracture. I todd ve reviewed these findings with the patient as well as further treatment options including continued nonoperative management versus surgical reduction and fixation. We have discuss ed relative advantages and disadvantages, anticipated o utcomes, as well as common and serious complications associated with these option s. Given the degree of displacement on injury films as well as the radiographic predictors of instability, it was agreed to proceed with surgical reduction and fixation for this fr acture. Informed Consent: The risks, benefits, and alter natives to surgery were discussed. The patient and I have discussed in g reat detail the indications, alternatives, and potential complications of the planned procedure. The potential complications of this procedure includ e, but are not limited to, bleeding, hematoma, ecchymosis, infection, nerve injury, neuroma formation, blood vessel injury, tendon injury, tendon adhesions, tendon ruptures, nonunion, malunion, hardware failure, potential need for h ardware removal, scar tissue that limits range of motion of the wrist, intrin sic tightness of the fingers, decreased range of motion of the fingers seconda ry to scar tissue formation, decreased forearm pronation/supination, DRUJ ins tability, potential need for additional surgery for stabi lization of the DRUJ, hypertrophic scar, keloid scar , post-traumatic arthritis, postoperative pain, and possible complex regional pain syndrome. We have discu ssed that given the degree of fracture comminution, it is possible that a combination of dorsal and volar plate fixation and possibly supplemental K-wires may be needed to a dequately stabilize the fracture. We have also discu ssed that fixation may need to be protected with an internal distraction plate or external fixator p ostoperatively dependent upon the degree of comminution and bone quality encou ntered intraoperatively. The patient also understands the need for supervised hand therapy following surgery to maximize functional outcome. The patient unde rstands these issues well, accepts the potential complications of the surge ry, and has provided informed consent for us to proceed. Description Of Operation: The patient was identified by all releva nt parties in the preoperative holding area and the correct operative site was identified and marked. The patient was transferred to the operating room and placed on the OR table in a supine position. All pressure points were padded. A gali gical time out was performed, his identity was confirmed, and the left upper e xtremity verified as the operative site. A dose of antibiotics was given intravenously. A well-padded tourniquet was placed about the proximal arm. The extremity was then prepped and draped in the usual sterile fashion. The extremity was exsanguinated with an Esmarch bandage, and the tourniquet inflated to 250 mmHg pressure. A volar a pproach to the radius was performed. A longitudinal incision was made in the distal for earm directly overlying the flexor carpi radialis tendon . The incision was carried down through the skin and subcutaneous tissues, with all dissectio n performed under loupe magnification. The subcutaneous dissection was careful to avoid injury to branches of the lateral antebrachial cutaneous nerve and superfi cial radial nerve nearby. The FCR tendon sheath was divided longitudin ally to expose the FCR tendon. The FCR tendon was retracted ulnarly. The subsheath of t he FCR was divided longitudinally to expose the flexor pollicis longus and pronator quadratus. Care was taken to avoid injury to the nearby radial a rtery and median nerve/palmar cutaneous branch of the median nerve. Parona's s pace between the pronator and overlying flexor tendons was developed onel aleman. The flexor pollicis longus was retracted ulnarly to expose the pronator quadratus. The pronator quadratus was divided longitudinally near its radial border, leaving a cuff for later repair. Subperiosteal dissection was performed to expose the volar aspect of the distal radius. The brachioradialis insertion distally w as dissected and divided longitudinally to facilitate reduction of the fracture. Care was taken to avoid injury to the contents of the first dorsal exten sor tendon compartment during release of the brachioradialis tendon. The fract ure site was identified and debrided of all interposed blood clot and scar t issue. This was a 4 part fracture with independent 4 fragments. The fract ure fragments were mobilized into a reduced position and secured provisionall y with retrogradely placed K- wires placed in a percutaneous fashion f rom the radial styloid process, across the major fracture line, and into the ulnar bord er of the radius more proximally. Fluoroscopy imag es at this point confirmed satisfactory reduction of the fracture. A Geminus 3 hole volar dis chriss radius locking plate was selected. The plate was secured proximally with a non-locking screw. Plate placement was confirmed fluoroscopically. With the fracture he ld in a reduced position, 2 aiming K-wires were placed on the plate distally . Then, the plate was then secured distally using multiple locking screws. The 2 aiming k-wires were removed and screws were placed in its place. Add itional screws were placed proximally. The provisional K-wire was removed. Fluoroscopic images were obtained in multiple planes to confirm satisfact ory fracture reduction with alevism of radial length, inclination, volar tilt on the lateral view, as well as articular congruity. Plate placement, screw length, trajectory, and the absence of intra-articular p enetration were likewise confirmed fluoroscopically. The DRUJ was tested for stab ility. Excellent stability was noted through a full arc of forearm rotation, without any laxity, ins tability, or crepitation. As such, no DRUJ stabilization procedure was felt t o be necessary. At this point the wound was irrigated with copio us amounts of sterile saline solution and checked for hemostasis. The pronato r quadratus was repaired with [id number]-dj-blbvo 3-0 monocryl sutures to achieve complete coverage of the plate and screws. The wound was once again irrigated. The skin was then re- approximated with inverted 4 -0 monocryl dermal sutures followed by subcuticular 4-0 monocryl sutures. Dermabond was placed over the top. A splint was placed. The tourniquet was then released. Tourniquet gayatri e was 60 minutes. All fingers were immediately pink and well perfused after re lease of the tourniquet. The patient was then awakened and taken to t post-anesthesia care unit in stable condition. Drains: None Specimens: none Complications: none Counts: The sponge and needle counts were correc t. Estimated Blood Loss: 2 cc Post-op Plan: The patient was prescribed postope rative pain medication. The patient was asked to elevate the extremity to mi nimize edema. The patient was also instructed to perform finger range of motio n exercises. These were demonstrated in detail and crystal baker strongly encouraged, as were forearm pronation/ supination exercises. He deejay l return to clinic in 10-14 days for splint removal and to begin supervised hand therapy with a helen vable wrist splint. Electronically Signed by Juan Umana MD on 02/19 07/09 at 1955 [facility] #:[id number] END OF REPORT 2021-03-13 [id number] [facility] 17:12:00-00:[address] [place] [address] PATIENT NAME: CRYSTAL DICKEY ADMIT DATE: ACCOUNT NO: [id number] ROOM NO: AGE: 75 REPORT TYPE: ELECTROCARDIOGRAM SEX: M ADMITTING PHYSICIAN: ATTENDING PHYSICIAN:Juan Umana MD Order: [id number] Test Reason : PRE-OP CLEARANCE HTN Test Date/Time Stamp: SatMar 13 2021 17:12:30 Blood Pressure : / mmHG Vent. Rate : 061 BPM Atrial Rate : 061 BPM P-R Int : 178 ms QRS Dur : 106 ms QT Int : 436 ms P-R-T Axes : 057 -02 015 degree s QTc Int : 438 ms Normal sinus rhythm Normal ECG When compared with ECG of 13-MAR-2021 17:04, (Un confirmed) No significant change was found Confirmed by VARINDER MANZANARES MD ([id number]) on 03/14/2021 12:37:03 PM Referred By: Juan Umana Confirmed by:VARINDER MANZANARES MD Electronically Signed by Varinder Manzanares MD on 02/19 07/09 at 1237 PATIENT NAME: CRYSTAL DICKEY ACCOUNT #: [id number] 2020-03-03 [facility] 12:45:00-00:00 [facility] ([facility]) Discharge Summary REPORT#:[id number] REPORT STATUS: Signed DATE:03/03/20 TIME: 1245 PATIENT: CRYSTAL DICKEY UNIT #: [id number] ROOM/BED: [address] : [address] AGE: 74 SEX: M ATTEND: Francois Gay MD ADM AUTHOR: Meek Garland * ALL edits or amendments must be made on the Canv[employer]/computer document * General Information Discharge date: 03/03/20 Hospital course: Discharge Diagnosis: Left Knee Degenerative Dise ase Procedure: Left Knee Arthroplasty Hospital Course and Findings The patient underwent the pr ocedure without incident. Findings were significant for degenerative disease of the knee. The patien t was hemodynamically and medically monitored during the postoperative per iod. Anticoagulation was instituted for postoperative DVT prophylaxis. Th e patient was progressively able to tolerate PO pain med ications and the appropriate diet. Physical therapy was instituted, with a progressive ability to am bulate and perform exercises. The patient was eventually deemed stable and saf e for discharge. Despite factors which projected a longer hospita l stay, the patient fulfilled criteria for earlier than expected disch arge, including control of pain, early mobilization with therapy, and a stable hemodyna jonnie status. At discharge, the patient was comfortabl e, with a controlled pain level. There were no chest or abdominal symptoms present. Dis charge physical examination demonstrated stable vital signs and no acute dis tress. The patient had an intact wound with no signifi cant drainage, and no calf tenderness and a negative El's sign bilaterally. There were no neurolog ic or vascular deficits or changes from the preoperative state. Disposition: Discharged to home Discharge Condition: Stable Instructions: Instruction sheet given to patient Activity: Ambulate with assistance, with weight- bearing as instructed in the hospital. Diet: As per preoperatively Prescriptions 1. Pain Medications: As per discharge prescription, with progressive weaning as pain decreases 2. Anticoagulation: As per discharge prescription, or PreOp anticoa gulant, as discussed with patient 3. Physical Therapy: Will undergo PT for gait training, mobilization , sbuza-vb-yxarel, and strengthening. Patient was i nformed to that they need to arrange for therapy as quickly as possible. The imp ortance of early advancement of zklym-mv-[id number] with home exercises, and physical therapy was stresse d to the patient. Follow-up Appointment: Patient instructe d to arrange appointment for an office visit in 2 weeks Med Rec Med Rec Discharge meds: Stop taking the following medications: NAPROXEN SODIUM (ALEVE) 220 MG TAB 220 MILLIGRAM ORAL EVERY 12 HR NEEDED. as ne eded for pain ACETAMINOPHEN (TYLENOL) 500 MG TAB 500 MILLIGRAM ORAL EVERY 4 HOURS NEEDED. as needed for PAIN Continue taking these medications: DORZOLAMIDE/TIMOLOL (COSOPT 2%-0.5% OPHTH) 22.3 MG-6.8 MG/ML OPHTH.SOLN 1 DROPS EACH EYE TWICE DAILY. DICLOFENAC SODIUM (DICLOFENAC SODIUM 1%) 1 % GEL 1 APPLIC TOPICAL TWICE DAILY NEEDED. as need ed for FOOT PAIN [FARXIGA] 10 MILLIGRAM ORAL DAILY. GABAPENTIN (NEURONTIN) 300 MG CAP 300 MILLIGRAM ORAL TWICE DAILY. sitaGLIPtin (JANUVIA) 100 MG TAB 100 MILLIGRAM ORAL DAILY. LOSARTAN (COZAAR) 50 MG TAB 50 MILLIGRAM ORAL BEDTIME. OMEPRAZOLE ER (PriLOSEC) 40 MG CAP.DR 40 MILLIGRAM ORAL BEDTIME. PARoxetine HCL (PAXIL) 20 MG TAB 20 MILLIGRAM ORAL BEDTIME. PIOGLITAZONE (ACTOS) 15 MG TAB 15 MILLIGRAM ORAL DAILY. SIMVASTATIN (ZOCOR) 40 MG TAB 40 MILLIGRAM ORAL BEDTIME. ASPIRIN EC (ECOTRIN) 81 MG TAB.EC 81 MILLIGRAM ORAL BEDTIME. Comments: can resume normal dose after one month ASCORBIC ACID (VITAMIN C) 1,000 MG TAB 1,000 MILLIGRAM ORAL DAILY. MULTIVITAMIN (MULTIPLE VITAMIN) 1 TAB TAB 1 TABLET ORAL DAILY. CHOLECALCIFEROL (VITAMIN D3) (VITAMIN D3) 50,000 UNIT CAP 50,000 UNIT ORAL EVERY 7 DAYS. [AREDS 2] 1 TABLET ORAL TWICE DAILY. [BITTER MELON] 1 TABLET ORAL TWICE DAILY. Start taking the following new medications: ACETAMINOPHEN (TYLENOL) 500 MG TAB 1,000 MILLIGRAM ORAL EVERY 8 HOURS. Days = 30 Qty = 180 No Refills ASPIRIN (ASPIRIN) 81 MG TAB.CHEW 81 MILLIGRAM ORAL TWICE DAILY. Days = 30 No Refills Discharge Instructions PCP )( Discharge to: Home/Self Care Discharge Instructions Additional Discharge Routines: None )( Diet: Regular Follow-up Appointments Attending Physician: Attending Physician: Rose Gay MD Attending physician follow up timeframe: In 1-2 weeks Special instructions: CALL OFFICE TO SCHEDULE FOLLOW UP APPOINTMENT Electronically Signed by Meek Garland on 03/03 at 1246 RPT #:[id number] END OF REPORT 2020-03-03 [facility] 12:45:00-00:00 [facility] ([facility]) Discharge Summary REPORT#:[id number] REPORT STATUS: Signed DATE:03/03/20 TIME: 1245 PATIENT: CRYSTAL DICKEY UNIT #: [id number] ROOM/BED: [address] : [address] AGE: 74 SEX: M ATTEND: Francois Gay MD ADM AUTHOR: Meek Garland * ALL edits or amendments must be made on the Canvace/computer document * General Information Discharge date: 03/03/20 Hospital course: Discharge Diagnosis: Left Knee Degenerative Dise ase Procedure: Left Knee Arthroplasty Hospital Course and Findings The patient underwent the pr ocedure without incident. Findings were significant for degenerative disease of the knee. The patien t was hemodynamically and medically monitored during the postoperative per iod. Anticoagulation was instituted for postoperative DVT prophylaxis. e patient was progressively able to tolerate PO pain med ications and the appropriate diet. Physical therapy was instituted, with a progressive ability to am bulate and perform exercises. The patient was eventually deemed stable and saf e for discharge. Despite factors which projected a longer hospita l stay, the patient fulfilled criteria for earlier than expected disch arge, including control of pain, early mobilization with therapy, and a stable hemodyna jonnie status. At discharge, the patient was comfortabl e, with a controlled pain level. There were no chest or abdominal symptoms present. Dis charge physical examination demonstrated stable vital signs and no acute dis tress. The patient had an intact wound with no signifi cant drainage, and no calf tenderness and a negative El's sign bilaterally. There were no neurolog ic or vascular deficits or changes from the preoperative state. Disposition: Discharged to home Discharge Condition: Stable Instructions: Instruction sheet given to patient Activity: Ambulate with assistance, with weight- bearing as instructed in the hospital. Diet: As per preoperatively Prescriptions 1. Pain Medications: As per discharge prescription, with progressive weaning as pain decreases 2. Anticoagulation: As per discharge prescription, or PreOp anticoa gulant, as discussed with patient 3. Physical Therapy: Will undergo PT for gait training, mobilization , wcfia-ra-lgotnk, and strengthening. Patient was i nformed to that they need to arrange for therapy as quickly as possible. The imp ortance of early advancement of xkjwg-dk-[id number] with home exercises, and physical therapy was stresse d to the patient. Follow-up Appointment: Patient instructe d to arrange appointment for an office visit in 2 weeks Med Rec Med Rec Discharge meds: Stop taking the following medications: NAPROXEN SODIUM (ALEVE) 220 MG TAB 220 MILLIGRAM ORAL EVERY 12 HR NEEDED. as ne eded for pain ACETAMINOPHEN (TYLENOL) 500 MG TAB 500 MILLIGRAM ORAL EVERY 4 HOURS NEEDED. as needed for PAIN Continue taking these medications: DORZOLAMIDE/TIMOLOL (COSOPT 2%-0.5% OPHTH) 22.3 MG-6.8 MG/ML OPHTH.SOLN 1 DROPS EACH EYE TWICE DAILY. DICLOFENAC SODIUM (DICLOFENAC SODIUM 1%) 1 % GEL 1 APPLIC TOPICAL TWICE DAILY NEEDED. as need ed for FOOT PAIN [FARXIGA] 10 MILLIGRAM ORAL DAILY. GABAPENTIN (NEURONTIN) 300 MG CAP 300 MILLIGRAM ORAL TWICE DAILY. sitaGLIPtin (JANUVIA) 100 MG TAB 100 MILLIGRAM ORAL DAILY. LOSARTAN (COZAAR) 50 MG TAB 50 MILLIGRAM ORAL BEDTIME. OMEPRAZOLE ER (PriLOSEC) 40 MG CAP.DR 40 MILLIGRAM ORAL BEDTIME. PARoxetine HCL (PAXIL) 20 MG TAB 20 MILLIGRAM ORAL BEDTIME. PIOGLITAZONE (ACTOS) 15 MG TAB 15 MILLIGRAM ORAL DAILY. SIMVASTATIN (ZOCOR) 40 MG TAB 40 MILLIGRAM ORAL BEDTIME. ASPIRIN EC (ECOTRIN) 81 MG TAB.EC 81 MILLIGRAM ORAL BEDTIME. Comments: can resume normal dose after one month ASCORBIC ACID (VITAMIN C) 1,000 MG TAB 1,000 MILLIGRAM ORAL DAILY. MULTIVITAMIN (MULTIPLE VITAMIN) 1 TAB TAB 1 TABLET ORAL DAILY. CHOLECALCIFEROL (VITAMIN D3) (VITAMIN D3) 50,000 UNIT CAP 50,000 UNIT ORAL EVERY 7 DAYS. [AREDS 2] 1 TABLET ORAL TWICE DAILY. [BITTER MELON] 1 TABLET ORAL TWICE DAILY. Start taking the following new medications: ACETAMINOPHEN (TYLENOL) 500 MG TAB 1,000 MILLIGRAM ORAL EVERY 8 HOURS. Days = 30 Qty = 180 No Refills ASPIRIN (ASPIRIN) 81 MG TAB.CHEW 81 MILLIGRAM ORAL TWICE DAILY. Days = 30 No Refills Discharge Instructions PCP )( Discharge to: Home/Self Care Discharge Instructions Additional Discharge Routines: None )( Diet: Regular Follow-up Appointments Attending Physician: Attending Physician: Rose Gay MD Attending physician follow up timeframe: In 1-2 weeks Special instructions: CALL OFFICE TO SCHEDULE FOLLOW UP APPOINTMENT Electronically Signed by Meek Garland on 03/03 at 1246 at 1012 RPT #:[id number] END OF REPORT 2020-03-03 [facility] 12:38:00-00:00 [facility] ([facility]) Clinical Note REPORT#:[id number] REPORT STATUS: Signed DATE:03/03/20 TIME: 1238 PATIENT: CRYSTAL DICKEY UNIT #: [id number] ROOM/BED: [address] : [address] AGE: 74 SEX: M ATTEND: Francois Gay MD ADM AUTHOR: Meek Garland * ALL edits or amendments must be made on the el ectronic/computer document * Clinical Note Note: He is doing great. His pain is well controlled. He did well with PT yesterday and was able to ambualte in the hallway on POD 0 . Last Documented: Result Date Time Pulse Ox 100 03/03 1118 B/P 125/65 03/03 1118 B/P Mean 85.2 03/03 1118 O2 Delivery Room air 03/03 1118 Temp 97.2 03/03 1118 Pulse 73 03/03 1118 Resp 16 03/03 1118 FiO2 32 03/03 022 O2 Flow Rate 3 03/03 0222 03/03 0700 03/02 2300 03/02 1500 Intake Total 400.00 200.00 175.00 Output Total 500 Balance 400.00 200.00 -325.00 Intake, IV 400.00 200.00 100.00 Intake, Oral 75 Number Voids 1 2 1 Output, Urine 500 Patient 215 lb Weight Weight Standing scale Measurement Method Laboratory Tests: 03/03 03/03 03/02 0610 0350 2054 Chemistry Sodium (136 - 145 mmol/L) 137 Potassium (3.5 - 5.1 mmol/L) 4.2 Chloride (98 - 107 mmol/L) 102.0 Carbon Dioxide (21 - 32 mmol/L) 24.1 BUN (7 - 18 mg/dL) 29 H Creatinine (0.55 - 1.30 mg/dL) 1.09 Glomerular Filtr Rate (>60) 65.9 Glucose (70 - 110 mg/dL) 189 H POC Glucose (60 - 125 mg/dL) 167 H 224 H Calcium (8.2 - 10.1 mg/dL) 8.5 Hematology Hgb (12 - 16 g/dL) 10.6 L Hct (37 - 47 %) 30.9 L Physical Exam A/A/O, in no acute distress, in chair bandage dry and intact compartments soft sensation intact distal pulses equal and palpable bilat strong ankle dorsi/plantarflexion Assessment/Plan s/p Lt TKA, POD 1 continue PT/OT patient has exceeded inpatient goals oxycodone, tramadol and robaxin have been escrib ed to his pharmacy plan for dc to home today when meets dc criteria f/u in 10-14 days Electronically Signed by Meek Garland on 03/03 at 1243 RPT #:[id number] END OF REPORT 2020-03-03 [facility] 12:38:00-00:00 [facility] ([facility]) Clinical Note REPORT#:[id number] REPORT STATUS: Signed DATE:03/03/20 TIME: 1238 PATIENT: CRYSTAL DICKEY UNIT #: [id number] ROOM/BED: [address] : 44 AGE: 74 SEX: M ATTEND: Francois Gay MD ADM AUTHOR: Meek Garland * ALL edits or amendments must be made on the [employer] document * Clinical Note Note: He is doing great. His pain is well controlled. He did well with PT yesterday and was able to ambualte in the hallway on POD 0 . Last Documented: Result Date Time Pulse Ox 100 03/03 1118 B/P 125/65 03/03 1118 B/P Mean 85.2 03/03 1118 O2 Delivery Room air 03/03 1118 Temp 97.2 03/03 1118 Pulse 73 03/03 1118 Resp 16 03/03 1118 FiO2 32 03/03 0222 O2 Flow Rate 3 03/03 0222 03/03 0700 03/02 2300 03/02 1500 Intake Total 400.00 200.00 175.00 Output Total 500 Balance 400.00 200.00 -325.00 Intake, IV 400.00 200.00 100.00 Intake, Oral 75 Number Voids 1 2 1 Output, Urine 500 Patient 215 lb Weight Weight Standing scale Measurement Method Laboratory Tests: 03/03 03/03 03/02 0610 0350 2055 Chemistry Sodium (136 - 145 mmol/L) 137 Potassium (3.5 - 5.1 mmol/L) 4.2 Chloride (98 - 107 mmol/L) 102.0 Carbon Dioxide (21 - 32 mmol/L) 24.1 BUN (7 - 18 mg/dL) 29 H Creatinine (0.55 - 1.30 mg/dL) 1.09 Glomerular Filtr Rate (>60) 65.9 Glucose (70 - 110 mg/dL) 189 H POC Glucose (60 - 125 mg/dL) 167 H 224 H Calcium (8.2 - 10.1 mg/dL) 8.5 Hematology Hgb (12 - 16 g/dL) 10.6 L Hct (37 - 47 %) 30.9 L Physical Exam A/A/O, in no acute distress, in chair bandage dry and intact compartments soft sensation intact distal pulses equal and palpable bilat strong ankle dorsi/plantarflexion Assessment/Plan s/p Lt TKA, POD 1 continue PT/OT patient has exceeded inpatient goals oxycodone, tramadol and robaxin have been escrib ed to his pharmacy plan for dc to home today when meets dc criteria f/u in 10-14 days Electronically Signed by Meek Garland on 03/03 at 1243 at 1012 RPT #:[id number] END OF REPORT 2020-03-03 [facility] 08:10:00-00:00 [facility] ([facility]) Internal Medicine Prog. Note REPORT#:[id number] REPORT STATUS: Signed DATE:03/03/20 TIME: 08 PATIENT: CRYSTAL DICKEY UNIT #: [id number] ROOM/BED: [address] : 44 AGE: 74 SEX: M ATTEND: Francois Gay MD ADM AUTHOR: Ted Guzman MD * ALL edits or amendments must be made on the [employer]/computer document * Subjective Patient reports: no complain ts, no abdominal pain, no chest pain, no dizziness ( when getting OOB), no heartb urn, no nausea, no shortness of breath, no vomiting, feeling better, good urine output, pain controll ed Objective General VS/I O: Vital Signs Date Temp Pulse Resp B/P B/P Mean Pulse Ox FiO2 03/02-03/03 96.8-98.4 61-86 14-18 111-148/60-8 8 8.9-103.8 32-100 32-100 8 Last Documented: Result Date Time Pulse Ox 100 03/03 0735 B/P 135/88 03/03 0735 B/P Mean 103.8 03/03 734 O2 Delivery Room air 03/03 734 Temp 96.8 03/03 734 Pulse 66 03/03 734 Resp 16 03/03 734 FiO2 32 03/03 221 O2 Flow Rate 3 03/03 221 24 hour I O ending at 0700: 03/03 0700 03/02 1900 Intake Total 600.00 175.00 Output Total 500 Balance 600.00 -325.00 Intake, IV 600.00 100.00 Intake, Oral 75 Number Voids 3 1 Output, Urine 500 Patient 215 lb Weight Weight Standing scale Measurement Method PATIENT WEIGHT: Weight (lb): 215 Weight (oz): 13.32 Weight (kg): 97.522 Post-op: day 1 Physical Exam General appearance: alert, awake, no acute distr ess Abdomen: no distention Genitourinary: no keys Extremities: Extremities: no calf tenderness, no edema Results Findings/Data: Laboratory Tests 03/03/20 0350: [Embedded Image Not Available] Laboratory Tests 03/030 2054 Chemistry Sodium (136 - 145 mmol/L) 137 Potassium (3.5 - 5.1 mmol/L) 4.2 Chloride (98 - 107 mmol/L) 102.0 Carbon Dioxide (21 - 32 mmol/L) 24.1 BUN (7 - 18 mg/dL) 29 H Creatinine (0.55 - 1.30 mg/dL) 1.09 Glomerular Filtr Rate (>60) 65.9 Glucose (70 - 110 mg/dL) 189 H POC Glucose (60 - 125 mg/dL) 224 H Calcium (8.2 - 10.1 mg/dL) 8.5 Laboratory Tests 03/03 349 Hematology Hgb (12 - 16 g/dL) 10.6 L Hct (37 - 47 %) 30.9 L Results: labs reviewed Diagnosis, Assessment Plan Problem List/A P: 1. DM type 2 (diabetes mellitus, type 2) BS's have been significantly elevated post op. 2. HTN (hypertension) BP is controlled. 3. GERD (gastroesophageal reflux disease) Asymptomatic. 4. Postoperative anemia due to acute blood loss Mild. 5. JON (obstructive sleep apnea) Free Text DxA P Notes Free text DxA P notes: OK to restart Farxiga this A M since the pt's renal fct is normal. Will DC today 's scheduled dose of dexamet hasone due to significantly elevated BS's. Continue other current treatments. Continue rehab. Electronically Signed by Ted Guzman MD on at 0816 [facility] #:[id number] END OF REPORT 2020-03-02 [id number] [facility] 19:57:00-00:00 [address] [place] [address] PATIENT NAME: CRYSTAL DICKEY ADMIT DATE: ACCOUNT NO: [id number] ROOM NO: Y.320 AGE: 74 REPORT TYPE: CONSULTATION REPORT SEX: M ADMITTING PHYSICIAN:Rose Gay MD ATTENDING PHYSICIAN:Rose Gay MD CONSULTATION DATE: 03/02/2020 CONSULTING PHYSICIAN: Ted Guzman MD MEDICINE CONSULTATION ATTENDING PHYSICIAN: Rose Gay MD. CONSULTING PHYSICIAN: Ted Guzman MD REASON FOR CONSULTATION: Postop medical evaluati on and management of patient with multiple medical problems. HISTORY OF PRESENT ILLNESS: The patient is a 74- year-old white male with left knee degenerative arthritis, who underwent a lef t total knee arthroplasty earlier today. The patient tolerated surgery wel l. He currently denies any chest pain, shortness of breath, nausea, or vomi ting. He has adequate pain control at the present time. He denies any light headedness when getting up to walk earlier this afternoon. The patient has bee n able to urinate without difficulty postoperatively. PAST MEDICAL HISTORY: Adult-onset diabetes melli tus for 10 years. The patient has peripheral neuropathy. He also has hypertens ion, obstructive sleep apnea, gastroesophageal reflux disease, hypercholestero lemia, anxiety, glaucoma. The patient denies any coronary artery disease, jed estive heart failure, asthma, benign prostatic hyperplasia, or history of deep venous thrombosis. PAST SURGICAL HISTORY: Bilateral rotator cuff te ar repairs, bilateral carpal tunnel release, lumbar laminectomy, cerv ical fusion, distal partial amputation of second right toe, sinuplasty. ALLERGIES: AMLODIPINE AND TRAVATAN. CURRENT MEDICATIONS: Gabapentin 300 mg b.i.d., A leve 220 mg q.12 hours p.r.n. pain (on hold), paroxetine 20 mg at bedt erica, Cosopt 1 drop in each eye b.i.d., omeprazole 40 mg at bedtime, pioglitazone 15 mg daily, Januvia 100 mg daily, vitamin C 1000 mg daily, ARE DS 2 one tablet b.i.d. bitter melon 1 tablet b.i.d., Farxiga 10 mg q.a.m. (on hol d), losartan 50 mg at bedtime, simvastatin 40 mg at bedtime, ECASA 81 mg at bedt erica (on hold), diclofenac sodium gel to feet b.i.d. p.r.n. pain (on hold), vitamin D 50,000 units we ekly, multivitamin daily. FAMILY HISTORY: Noncontributory. 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 He does not smoke or drink alcohol. REVIEW OF SYSTEMS: The patient denies exertional chest pain, dyspnea on exertion, orthopnea, PND, black tarry stools, br ight red blood per rectum, or dysuria. PHYSICAL EXAMINATION: GENERAL: Well-developed, obese white male, in no apparent distress. VITAL SIGNS: Pulse 65 and regular, respirations 18, blood pressure 123/72, temperature 96.8, oxygen saturation 100% on 3 L O2. EYES: EOMI. PERRLA. Sclerae are anicteric. Oroph arynx is clear. NECK: No adenopathy, thyromegaly, masses, tender ness, JVD, or carotid bruits. LUNGS: Clear to auscultation. HEART: Regular rate and rhythm without murmurs, gallops, or rubs. ABDOMEN: Corpulent. Minimal bowel sounds through out. No hepatosplenomegaly, masses, tenderness, bruits, or distention. EXTREMITIES: No clubbing, cyanosis, or edema. No calf or thigh swelling or posterior tenderness bilater ally. No Homans sign or palpable cords bilaterally. Toes on both feet are pink and warm to touch. N o pedal lesions. IMPRESSION: 1. Adult-onset diabetes mellitus (type 2), contr olled. 2. Hypertension. Blood pressure well controlled at the present time. 3. Obstructive sleep apnea. The patient has a CP AP machine available for use in the hospital. 4. Peripheral neuropathy. 5. Gastroesophageal reflux disease. Asymptomatic . 6. Anxiety. Controlled. 7. Hypercholesterolemia. 8. Glaucoma. 9. Status post left total knee arthroplasty. The patient is currently stable. PLAN: 1. An 1800-calorie ADA, low-salt, low-cholestero l diet. 2. Sequential compression devices to both feet. 3. Tomorrow morning start aspirin 81 mg b.i.d. a s per Dr. Gay' total knee arthroplasty, DVT prophylaxis regimen protocol. 4. Continue rehab in a.m. 5. Check H and H and chem-6 in a.m. 6. Q.a.c. and at bedtime Accu-Cheks. 7. Humalog moderate dose regimen sliding scale. 8. Restart Farxiga tomorrow if the patient's GFR is greater than 45. 9. The patient encouraged not to restart Aleve p ostoperatively until the patient has finished outpatient celecoxib prescr iption. The patient may then use the Aleve on a p.r.n. basis. 10. Maalox 30 mL p.o. q. 6 hours p.r.n. indigest ion. 11. The patient encouraged to eat sittin g up, out of bed when possible and not to lie down within two hours after eating in ord er to minimize risk of reflux symptoms. 12. Hold losartan if systolic blood pressure les s than 120. Thank you very much for this consultation. I deejay l follow patient with you PATIENT NAME: CRYSTAL DICKEY ACCOUNT #: [id number] during his hospitalization. Dictated By: Ted Guzman MD WT: [place].ODETTE/JENNIFER/NTS Conf#: [id number]#: [id number] Authenticated by Ted Guzman MD On 03/04/2020 06:46:01 PM Electronically Signed by Ted Guzman MD on at 1846 PATIENT NAME: CRYSTAL DICKEY ACCOUNT #: [id number] 2020-03-02 [id number] [facility] 19:42:00-00:00 [address], [place] [address] PATIENT NAME: CRYSTAL DICKEY ADMIT DATE: ACCOUNT NO: [id number] ROOM NO: Y.320 AGE: 74 REPORT TYPE: OPERATIVE REPORT SEX: M ADMITTING PHYSICIAN:Rose Gay MD ATTENDING PHYSICIAN:Rose Gay MD OPERATION DATE: 03/02/2020 PREOPERATIVE DIAGNOSIS: Degenerative joint disea se, left knee. POSTOPERATIVE DIAGNOSIS: Degenerative joint dise ase, left knee. PROCEDURE: Left total knee arthroplasty. SURGEON: Rose Gay MD R[employer] LAP MACHINE TENDER: Meek Garland PA-C ANESTHESIA: General anesthesia. ESTIMATED BLOOD LOSS: 75 mL. DRAINS: None. SPECIMENS: None. COMPLICATIONS: None. IMPLANTS: DePuy PFC Sigma size 4 femoral compone nt, size 5 tibial component with short cemented stem, 10 mm posterior-stabilized tibial polyethylene insert, and 38-mm oval patella. FINDINGS: Severe arthritis with varus deformity with eburnated bone in the medial compartment and small marginal osteophyte s. INDICATIONS FOR SURGERY: Left knee pain and arth ritis. Treatment options were discussed with the patient who voiced understand ing of the options and the planned procedure. The patient voiced understand ing of the risk of infection, damage to nerves or blood vessels with l oss of function, mechanical failure or loosening with need for revision surgery, blood clots possibly going to the lungs, possibly resulting in . These issues were discussed with the patient in the office prior to surgery. No warra nty or guarantee as to the outcome of the surgery was made. PROCEDURE IN DETAIL: The patient was identified in the preoperative holding area. All questions were answered. The patient's surgical site was appropriately marked under the patient's directi on and with the patient's consent. The patient was taken to the operating room where a timeout was PATIENT NAME: CRYSTAL DICKEY ACCOUNT #: [id number] performed prior to induction of anesthesia, ensu ring that the patient was properly identified as the proper patient. After establishment of anesthesia, the left leg was prepped and draped sterilely. A surgical timeout was then initiated by the surgeon and performed under the direction of the circulating nurse. It was confirmed that the marking of the surgical site was visible after prepping and draping of the extremity, that it w as the proper patient, that x-rays with the patients name on it were display ed, that all necessary instruments were available a nd open and all potentially necessary implants were available. It was also confirmed that the instru ments had been properly sterilized. Each member of the surgical team int roduced themselves and described their role in the surgical pro cedure. After the surgical timeout was completed, surgery was begun. With the knee in a flexed position an an terior longitudinal incision extending from approximately 6 cm proximal to the proximal pole of the patella, slightly medial to the midline, was e xtended distally for a length of approximately 15 to 20 cm to the region of the medial aspect of the tibial tubercle. The incision was carried through the skin and subcutaneous ti ssues and hemostasis was then obtained using electrocautery. A sterile tourniq uet was available, but the surgery was initially performed without a tourni quet. The tourniquet was only to be placed if there was excessive bleeding. A mid vastus approach was then performed by dividing the fibers of the vastus m edialis oblique one fingerbreadth proximal to the proximal pole of t he patella for a distance of approximately 6 cm. The incision was then mila d along the medial capsule along the medial border of t he patella leaving an adequate cuff of tissue on the patella for later closure. The incision continued down along the medial border of the patellar tendon along the tibial tubercle . Hemostasis was again obtained. The anterior portion of the medial men iscus was excised using scalpel. The knee was then e xtended and release of the deep MCL of the proximal medial tibia was performed using electrocautery under direct visualization as appropriate based on the patient's deformity. He mostasis was again obtained with the knee in extension. Synovium was then excised from the anterior distal femur to allow referencing of the anterior tibia l cortex for sizing of the femoral implant. The knee was then flexed and re tractors were placed beneath the medial and lateral collateral ligament. A small portion of the fat pad was excised allow ing better exposure of the anterolateral portion of the tibia. The anterior portion of the lateral meniscus was then excised to allow placement of the femoral sizing guide beneath the femur. The femoral canal was then entered at the superomedial border of the intercondylar notch above the PCL. The femoral c anal was then suctioned, removing marrow fat to reduce the risk for fat e mbolization and the intramedullary cutting guide was placed and pinned for a 10-mm resection. With flexion contracture of greater than 10 degrees i n a knee without valgus deformity, an additional 2-mm resection was perf ormed. The distal femur was carefully cut using an oscillating saw u nder direct visualization. The femoral sizing guide was then used to size the distal fe mur and the appropriate size 4-in-1 cutting block was chosen. After the 4-in- 1 cutting block was pinned into place, the anterior fem oral condyle was removed with careful protection of the anterior femur and surrounding soft tissues. The anterior chamfer cut was also made. It was verified that Hohmann retracto rs were adequately protecting the MCL and LCL as the posterior femoral condyle s were cut and the posterior chamfer cut was made. The 4-in-1 femoral cutting block was then removed. Marginal osteophytes on the femur were then helen ada. PATIENT NAME: CRYSTAL DICKEY ACCOUNT #: [id number] Attention was turned to the proximal tibia where the remaining portion of the medial meniscus was excised using electrocautery as was the remaining portion of the lateral meniscus. The anterior cruciate liga ment was cut with electrocautery. Hohmann retractors were placed m edial and lateral and the tibial cutting guide was farnaz kelsey to perform a 10-mm resection from the less-worn tibial plateau. The tibial cutting guide was pin valerio in place with 2 smooth pins. A third retractor was placed protecting the LCL as the proximal tibia was resected. Care was taken to resect up to , but not through the posterior tibial cortex to protect the posterior neurovascular st ructures. The tibial cutting guide was then removed and the wafer of bone res ected from the proximal tibia was removed using electrocautery and a r ongeur. Any remaining bone was removed using a three quarter-inch osteotome. Posterior femoral osteophytes were also removed using a three quarte r-inch osteotome followed by rongeur. Spacer blocks were then used to confirm th at the flexion and extension gaps were minimum of 8 to 10 mm in thickness and were well balanced. At tention was then turned to preparing the distal femur for the posterior-sta bilized implant. The Tay retractor was placed protect ing the proximal tibia and the femoral trial without the notch was placed on the distal femur and was centered appropriately in the notch that was marked to allow the notch cutting guide to be appropriately positioned in the medial and lateral width. The cutting guide was then pinned and the notch resection was performed using an t hin saw blade under direct visualization taking care not to undercut the fe moral condyles. The cutting guide was removed as was the block of sabina ne that was cut from the intercondylar notch. Attention was then turned to the tibia and the proximal tibia was exposed using 2 Hohmann retractors. The baseplate for the tibia of the appropriate size that obtained the greatest amount of cortical contact without overhang was positioned with appropriate rotational alignment, g enerally aligned with the medial third of the tibial tubercle. Afte r the tibial baseplate guide was pinned into place, the round S-ROM punch was used to remove bone fr om the area where the tibial stem would be implanted and the plug of bone removed from the proximal tibia was immediately impacted into the femoral ca nal to plug the distal femur to reduce intraoperative and postoperative blood loss. The tibia was then prepared for the stem and keel of the tibial implant. The femoral trial was then placed and a trial reduction was performed. It was confirme d that the flexion and extension gaps were well balanced. If th ey were not, the femoral component was downsized or additional bone was removed from the distal femur as appropriate to achieve excellent balance. T he rotational alignment of the tibial component was again confirmed to be appropriate or was adjuste d as needed. The lugs for the pegs on the femoral implant were drilled and the knee was brought into extension for preparation of the patella. The patella was everted and ____ were used to hold the patella in an everted manner. Synovium was then removed from the distal quadriceps tendon ins ertion to the proximal pole of patella to lessen the risk for postoperative patellar clunk syndrome. The appropriate thickness was then resected from the undersurface of the ackerman la, ranging from 8 to 11.5 mm based on the diameter of the patellar component. The 3 peg holes were then drilled and a trial patellar implant was placed to ensure satisfactory tracking of the patella and to protec t the patella during cementation of the femoral and tibial implants. The knee was then brought into flexion a nd the patella was retracted laterally without eversion. A small step drill was used to drill any sclerotic bone to PATIENT NAME: CRYSTAL DICKEY ACCOUNT #: [id number] facilitate cement interdigitation. The distal fe mur and proximal tibia were prepared for cementation using pulsatile lavage to remove blood and fatty tissues to facilitate cement interdigitation. Hudson ction was placed in the proximal tibia, which was packed with la parotomy sponge while 2 batches of CMW cement were mixed along with 1 gm of vancomycin. When the cement was slightly doughy, the preheated tibial implant was completely dried and cement was placed on the undersurface of the tibia and around the tibial stem and was also finger-packed into the proximal tibia. Care was taken to pack the cement into the trabecular bone of the proximal tibia to min imize lipid extrusion during cementation. The tibial implant was then impacted into place and excess cement was removed. The Tay retractor was placed to h old the tibial implant flush with the tibia while the femoral implant was fran ented. The distal femur was again cleaned with a laparotomy sponge and cemen t was placed on the distal surface of the femur and the undersurface of the femoral component and the femoral implant was impacted into place. Excess cement was removed. The trial tibial insert was then placed. The knee was then brought into full extension an d once again it was verified that flexion and extension gaps were well balanc ed. If necessary, additional cement was removed from the margins of t he femoral component and the posterior aspect of the femur. The knee was maintained in extension as the patellar implant was cemented. The kn ee was then taken through a range of motion and the thickness of the final tibia l insert was then chosen and the tibial polyethylene implant was opened. The periarticular injection was then performed using 0.5% ropivacaine with epinephrine. Toradol was added to the injection if the patient's GFR was greater than 60 and if not 10 mg of morphine sulfate was added. As the cement was hardening, the knee was soaked with dilute Betadine for 90 seconds or more. Once the cement had hard ened, the knee was thoroughly irrigated using pulsatile lavage with up to 3 li ters of normal saline. Once again, the posterior aspect of the knee was checked and any cement or debris was removed. The tibial polyethylene insert was then locked into place. The capsule was then repaired using #1 Vicryl and #2 Quill. Subcutaneous tissues were meticulously closed in layers using 0 and 2-0 Vicryl. The skin was closed using 3-0 nylon. A sterile compression bandage w as placed. The patient was awoken by the anesthesia team and taken to the p ost anesthesia care unit in stable condition. Distal femur was cut in 6 degrees of valgus. POSTOPERATIVE PLAN: Weightbearing and range of m otion as tolerated. The skilled assistance of Nohemi Richardson was necessary during this surgical procedure. She assisted with every aspect of the operation including, but not limited to, proper and safe positioning of the p atient, obtaining adequate surgical exposure, manipulation of surgical inst ruments, the delicate task of the continual process of hemostasis during the p rocedure. She is responsible for proper and safe manipula tion of the surgical leg to allow visualization for me during surgery. Her meticulous multi-layer cl osure of the surgical wound closure is essential to prop er wound healing and the reduction of post-operative infections and drainage. Her assistance allowed me to perform the most sensitive and technical port ions of this operation using 2 hands, thus enhancing patient safety. This would not be possible witho ut the help of a skilled assistant professor nurse education familiar with the procedure and capabl e of safely performing the aforementioned tasks. Our facility is not a [facility] and as such, no PATIENT NAME: CRYSTAL DICKEY ACCOUNT #: [id number] surgical residents or interns were available to assist. Dictated By: Rose Gay MD WT: OP:CASPER/RINKU/NTS Conf#: [id number]#: [id number] Authenticated by Rose Gay MD On 10:20:02 AM at 1020 PATIENT NAME: CRYSTAL DICKEY ACCOUNT #: [id number] 2020-03-02 [facility] 19:38:00-00:00 [facility] ([facility]) Internal Medicine Prog. Note REPORT#:[id number] REPORT STATUS: Signed DATE:03/02/20 TIME: 1937 PATIENT: CRYSTAL DICKEY UNIT #: [id number] ROOM/BED: [id number]-A : 44 AGE: 74 SEX: M ATTEND: Francois Gay MD ADM AUTHOR: Ted Guzman MD * ALL edits or amendments must be made on the el ectronic/computer document * Subjective Comments: Consult Note Dictated Objective General VS/I O: Vital Signs Date Temp Pulse Resp B/P B/P Mean Pulse Ox FiO2 03/02 96.8-97.3 61-71 14-18 111-153/60-72 88.9- 93.9 32-100 100 Last Documented: Result Date Time Pulse Ox 100 03/02 1518 B/P 138/72 03/02 1518 B/P Mean 93.9 03/02 1518 O2 Delivery Nasal cannula 03/02 1518 Temp 96.8 03/02 1518 Pulse 71 03/02 1518 Resp 18 03/02 1518 O2 Flow Rate 3 03/02 1230 FiO2 100 03/02 1220 PATIENT WEIGHT: Weight (lb): 215 Weight (oz): 13.32 Weight (kg): 97.522 Diagnosis, Assessment Plan Problem List/A P: 1. DM type 2 (diabetes mellitus, type 2) 2. HTN (hypertension) 3. JON (obstructive sleep apnea) 4. GERD (gastroesophageal reflux disease) Electronically Signed by Ted Guzman MD on at 1956 RPT #:[id number] END OF REPORT 2020-03-02 [facility] 10:20:00-00:00 [facility] ([facility]) Brief Op Note REPORT#:[id number] REPORT STATUS: Signed DATE:03/02/20 TIME: 1020 PATIENT: CRYSTAL DICKEY UNIT #: [id number] ROOM/BED: [place] [id number] : 44 AGE: 74 SEX: M ATTEND: Francois Gay MD ADM AUTHOR: Rose Gay MD * ALL edits or amendments must be made on the [employer] document * Op/Inv Proc Note - Brief Pre-procedure diagnosis: DJD LT KNEE Post-procedure diagnosis: same as pre procedure dx Procedures performed: LT TKA Primary Surgeon: ROSE GAY MD Butter Fat Tester(s): MEEK GARLAND PA-C Anesthesia: general anesthesia Findings: DJD LT KNEE Complications: none Estimated blood loss in ml's: 75 Specimens removed/altered: none at 1021 RPT #:[id number] END OF REPORT 2018-04-21 Clinical Indication: - neck pain bilateral upper extremity numbness Isaac Stearns 07:47:00-00:00 Comparison: Comparison is made to the MR study 1 02/27/2015 TECHNIQUE: Multiplanar T1, T 2, and STIR weighted MRI of the cervical spine is performed on a 1.5 Libertad magnet. FINDINGS: ALIGNMENT AND GENERAL ASSESS MENT: The evaluation of the cord is somewhat technically limited due to phase artifacts. There is no obvious myelomalacia or or cord edema. There is no cerebellar tonsillar e ctopia. Flow is present from both vertebral arteries with dominant right. There is no discitis or osteomyelitis. The prevertebral soft tissues are normal. DISC SPACES: C2-C3: There is a 1.5 mm lef t lateral bridging osteophyte and hypertrophic change to the uncovertebral joint and minimal degenerative change left facet joint with minimal left foraminal stenosis and no central canal stenosis or interval change. C3-C4: The disc space is ruth iccated and narrowed and there is a 1 mm bridging osteophyte, minimal degenerative change left facet joint and minimal bilateral foraminal stenosis. Findings are stable. C4-C5: There is a decompress shari laminectomy/laminoplasty with intra pars screws create phase artifacts. There is adequate decompression of the thecal sac without meningocele formation or interval change. C5-C6: There is hypertrophic change of the right uncovertebral joint with suspected minimal right foraminal stenosis. There is a decompressive laminectomy. There is no meningocele formation. Findings are stable. C6-C7: The disc space is ruth iccated and narrowed and there is a 1 mm bridging osteophyte and hypertrophic change uncovertebral joints with minimal bilateral foraminal stenosis. C7-T1: The disc space is ruth iccated and slightly narrowed. There is a persistent 3 mm anterolisthesis and a 4 mm central subligamentous extruded disc herniation, accentuated in comparison to the previou s study, with attenuation of the anterior subarachnoid space with disc abutting the ventral cord. There is moderate bilateral foraminal stenosis. IMPRESSION: Postoperative changes at C4- C5 and C5-C6 are stable. There is no discitis or osteomyelitis. C7-T1: The disc space is ruht iccated and slightly narrowed. There is a persistent 3 mm anterolisthesis and a 4 mm central subligamentous extruded disc herniation, accentuated in comparison to the previou s study, with attenuation of the anterior subarachnoid space with disc abutting the ventral cord. There is moderate bilateral foraminal stenosis. SL: OSKAR 2018-04-21 Clinical Indication: Neck pain. [facility] 07:41:00-00:00 Comparison: Cervical spine MR 04/21/[address] 05/06/2015 Technique: Multi-detector CT imaging of the cervical spine is performed. Axial, coronal and sagittal reconstructions were obtained. CT imaging performed at this location utilizes radiation dose optimization techniques which include one or more of the following: -Automated exposure control -Adjustment of the mA and/or kV according to pat ient size -Use of iterative reconstruction technique CT Radiation Dose DLP: 611.4 7 mGy-cm. DLP means Dose Length Product, a radiation dose metric that does not report individual patient dose, but is a reference value related to the radiation output of the scanner used for this exam. FINDINGS: ALIGNMENT: There is normal a lignment of the cervical spine. The anterior/posterior vertebral and spinolaminar lines are unremarkable. The atlanto-dental interspace and craniocervical junction regions are narrowed. SOFT TISSUES: The prevertebral soft tissues are unremarkable. VERTEBRAL BODIES: No acute f racture or destructive osseous lesion. Mild osteopenia. Redemonstration of laminectomy and posterior fusion with translaminar screws and parallel rods at C4 and C5. No signs of lucency. DISCS: Severe disc height lo ss at C4-C5, moderate/severe at C6-C7. Mild/moderate at C2-C3 and C3-C4, mild at C5-C6. Refer to cervical MRI performed on 04/21/2018 fo r additional findings. IMPRESSION: No acute fractures or subluxations of the cervic al spine. Posterior fusion at C4-C5, without signs of hard munoz loosening. SL: [id number] 2017-12-30 EXAM: CTA CHEST WITH CONTRAST [facility] 18:48:00-00:00 DATE: 12/30/2017 6:[address] INDICATION: - tachycardia, hypotension COMPARISON: No available prior chest CTs for com stanleyon TECHNIQUE: Volumetric CT acq uisition of the chest, during pulmonary arterial phase, after intravenous contrast. Axial, sagittal, coronal, and oblique MIP reconstructions are created at the acquisition workstation. IV Contrast: 80 mL of Visipaque 320 DLP: 724 mGy-cm FINDINGS: Lines and tubes: None. Lower neck: The visualized p ortion of the thyroid gland shows calcified right thyroid lobe nodule Heart and Mediastinum: Mildl y dilated right ventricle. RV to LV ratio is 1. No pericardial effusion. Aortic atherosclerotic disease. Minimal calcifications are seen along the 3 coronary arteries. Measur ements and appearance of the thoracic aorta are normal. At the same level where the ascending aorta measures 3.3 cm the pulmonary trunk measures 2.7 cm. There is no pulmonary embolus. Pleura: Trace bilateral pleural effusions. No pn eumothorax. Lymph Nodes: There is no hil ar, mediastinal, axillary or internal mammary lymphadenopathy. Lungs: Linear nodular thicke melba seen along the inferior portion of the right upper lobe (series 7, images 60 through 68) which may represent endobronchial plugging or tumor. Spiculated nodule is seen i n the posterior segment of t he right upper lobe (axial image 74) measuring approximately 10 mm in size mild compression collapse of the lung segments related to the pleural effusions bilaterally. Trachea: Unremarkable. Upper abdomen: Unremarkable. Bones and soft tissues: Mild truncal anasarca is noted. Mild degenerative changes of the thoracic spine. No worrisome focal osseous lesions. No ascites. IMPRESSION: 1. No pulmonary embolus. No CT features of right heart strain. However, the right ventricle is markedly dilated. 2. Linear and nodular thicke melba seen along the inferior portion of the right upper lobe. Spiculated nodule is also noted in the posterior segment right lobe. These findings may be suspicious for underl shelley neoplastic process. How ever, mucous plug or inflammatory etiology can result in the same features. Correlation with PET/CT for further evaluation can be performed as indicated. If no intervention p erformed, chest CT follow-up in 3 months can be performed for further evaluation. 3. Small bilateral pleural e ffusions is compression collapse of the related lung segments. 2017-12-30 EXAM: XR CHEST 1 VIEW [facility] 17:42:00-00:00 DATE: 12/30/2017 5:[address] INDICATION: ams eval COMPARISON: CTA chest 12/30/2017. TECHNIQUE: AP chest. FINDINGS: Lines, tubes and hardware: None. Lungs and pleura: Linear opa cities are present in the lung bases, likely subsegmental atelectasis. The spiculated nodule in the right upper lobe is better seen on CT. Trace bilateral pleural effusions are present. Heart and mediastinum: The h eart size is normal for technique. The mediastinal contours are normal. Pulmonary vascularity is normal. Bones: No acute abnormality. Soft tissues: Unremarkable. IMPRESSION: 1. Right upper lobe nodule better evaluated on c omparison CT. 2. Trace bilateral pleural effusions. 2017-10-25 CT LUMBAR SPINE [facility] 13:41:00-00:00 Study: CT lumbar spine without contrast. History: Low back pain. Comments: Lumbar spine CT was obtained utilizing multiple axial images. Sagittal and coronal reconstructions were reviewed. Total exam DLP is 1193 mgy-cm. Decreased bone mineralization. Normal curvature of the lumbar spine. The vertebral body heights are maintained No acute fractures or subluxations. L1-L2; Broad-based posterior disc bulge causing mild bilateral foraminal narrowing. L2-L3: Broad-based posterior disc bulge and facet arthropathy causing mild bilateral foraminal narrowing. L3-L4: Broad-based posterior disc bulge and facet arthropathy causing moderate bilateral foraminal narrowing. L4-L5: Grade 1 anterior subl uxation, likely degenerative. Broad-based posterior disc bulge and facet joint hypertrophy causing moderate bilateral neural foraminal narrowing L5-S1: Intervertebral disc s pace narrowing and disc degeneration. Broad-based posterior disc bulge causing moderate bilateral foraminal narrowing Impression: 1. No acute fractures or subluxations in the lum bar spine. 2. Multilevel degenerative changes as described. 2017-10-15 [facility] 09:04:00-00:00 MALE BONE DENSITY ASSESSMENT: 10/15/2017 CLINICAL DATA: M81.0 Age rel ated osteoporosis. Lumbar laminectomy and fusion of adjacent vertebral bodies. RISK FACTORS: race and fractures with minimal trauma. FINDINGS: Bone density evaluation was performed 10/15/2017 on the right femur neck using a Hologic unit. The BMD average for the exam is 0.766 g/cm2. The T-score is - 1.20 and the Z-score is 0.10. This matches the World Health Organization's criteria for osteopenia and places the patient at a medium risk for fracture. An additional bone density e valuation was performed 10/15/2017 on the left femur neck using a Hologic unit. The BMD average for the exam is 0.805 g/cm2. The T-score is -0.90 and the Z-score is 0.40. Thi s matches the World Health O rganization's criteria for normal bone density and places the patient within normal limits of fracture risk. An additional bone density e valuation was performed 10/15/2017 on the right total femur area using a Hologic unit. The BMD average for the exam is 0.900 g/cm2. The T-score is -0.90 and the Z-score is -0 .10. This matches the World Health Organization's criteria for normal bone density and places the patient within normal limits of fracture risk. An additional bone density e valuation was performed 10/15/2017 on the left total femur area using a Hologic unit. The BMD average for the exam is 0.884 g/cm2. The T-score is -1.00 and the Z-score is -0. 20. This matches the World H ealth Organization's criteria for normal bone density and places the patient within normal limits of fracture risk. An additional bone density e valuation was performed 10/15/2017 on the AP L1-L4 region of spine using a Hologic unit. The BMD average for the exam is 1.274 g/cm2. The T-score is 1.70 and the Z-score is 2 .60. This matches the World Health Organization's criteria for normal bone density and places the patient within normal limits of fracture risk. FRAX 10 year probability of major osteoporotic fracture is 5.6% and hip fracture is 1.2%. IMPRESSION: OSTEOPENIA Patient is at medium risk fo r fracture. This exam was interpreted at [id number] for STEPHANIE Teague 15. Andrei Smith M.D., cm/melissa:10/15/2017 09:31:01 Teletype Installer(s): Isaac Spencer [facility] 2017-09-20 MRI LUMBAR SPINE WITHOUT CONTRAST DANIEL Barrera 07:09:00-00:00 HISTORY: M48.061 Spinal sten osis, lumbar region without neurogenic claudication - low back pain with right foot drop and bilateral lower extremity weakness COMPARISON: MRI lumbar spine dated 02/01/2016 TECHNIQUE: Multiplanar T1, T 2, fluid-sensitive weighted MRI of the lumbar spine without contrast is performed on the 1.5 Libertad magnet. FINDINGS: No fracture is seen. Vertebr al body heights are maintained. No bone marrow edema or aggressive osseous lesion. No discitis/osteomyelitis. No paraspinal mass, fluid collection, or soft tissue inflammatory signal. Multilevel mild/moderate dis c degeneration throughout the lumbar spine and multilevel moderate to severe lower lumbar facet arthrosis is again noted. Unchanged grade 1 anterolisthesis of L4 on L5 measuring 5 mm. Visualized portion the kidneys is normal . No aneurysm of the visualized aorta. DISC SPACES: T12/L1: Unchanged disc desic cation with minimal disc bulge. No significant facet arthrosis. No canal stenosis or neural foraminal narrowing. L1/L2: Normal intervertebral disc. Unchanged mild degenerative facet and ligamentum flavum hypertrophy. No canal stenosis. Mild bilateral neural foraminal narrowing. L2/L3: Unchanged mild diffus e disc protrusion. Mild progression of mild/moderate bilateral degenerative facet hypertrophy. Since the prior exam, a relatively large degenerative left facet synovial cyst has developed in the left po sterolateral spinal canal measuring 9 x 5 mm axial cross section (axial series 601 image 30) and 10 mm craniocaudad. This synovial cyst, in combination with mild disc protrus ion, results in severe theca l sac stenosis with complete effacement of CSF signal about the nerve roots of the cauda equina. Progressive left-sided facet arthrosis slightly worsens left neural foraminal narrowing, now moderate to severe. Unchanged mild/moderate right neural foraminal narrowing. L3/L4: Unchanged mild diffus e disc protrusion, asymmetric to the neural foramina. Mild progression of degenerative facet and ligamentum flavum hypertrophy bilaterally, now moderate. Development of a rel atively small right-sided fa cet synovial cyst since the prior MRI measuring 8 x 4 mm in axial cross section (axial series 601 image 22) and 4 mm craniocaudad. This is facet synovial cyst does not signif icantly narrow the thecal sa c or lumbar canal. There is unchanged mild/moderate degenerative lumbar canal stenosis. Unchanged moderate bilateral neural foraminal narrowing. L4/L5: Unchanged mild diffus e disc protrusion. Unchanged grade 1 anterolisthesis of L4 on L5 measuring 5 mm. Unchanged severe degenerative facet and ligamentum flavum hypertrophy. Unchanged moderate can al stenosis. Unchanged moder ate to severe bilateral neural foraminal narrowing. L5/S1: Unchanged mild/modera te diffuse disc protrusion and endplate spurring. Unchanged moderate bilateral hypertrophic facet arthrosis. No canal stenosis. Unchanged moderate to severe right neural fora va narrowing and severe left neural foraminal narrowing. IMPRESSION: 1. Multilevel disc degenerat ion and facet arthrosis is similar to the prior exam. Unchanged grade 1 spondylolisthesis at L4/L5. 2. The only change since the prior MRI is mild progression of facet arthrosis at L2/L3 and L3/L4 with development of facet synovial cysts at both levels. 3. The new left-sided facet synovial cyst at L2/L3 results in severe thecal sac stenosis at this level. 4. Slight progression of lef t neural foraminal narrowing at L2/L3, now moderate to severe. 5. Unchanged moderate canal stenosis at L4/L5 and mild/moderate canal stenosis at L3/L4. 6. Unchanged severe left neural foraminal narrow ing at L5/S1. 7. Unchanged moderate to sev ere neural foraminal narrowing at L4/L5 bilaterally and at L5/S1 on the right. SL: [id number] 2016-02-01 MRI LUMBAR SPINE WITHOUT CONTRAST [facility] [place] 11:50:53-00:00 HISTORY: LUMBAR RADICULOPATH Y; 70-year-old male reports lower extremity weakness and numbness COMPARISON: None available. TECHNIQUE: Multiplanar T1, T 2, fluid-sensitive weighted MRI of the lumbar spine without contrast is performed on the 1.5 Libertad magnet. FINDINGS: No fracture is seen. Vertebr al body heights are maintained. No bone marrow edema or aggressive osseous lesion. No discitis/osteomyelitis. There is multilevel degenera tive disc disease and facet arthrosis resulting in variable canal stenosis and neural foraminal narrowing. There is degenerative grade 1 anterolisthesis of L4 on L5 measuring 5 mm. DISC SPACES: T12/L1: Trace diffuse disc b ulge. No canal stenosis or neural foraminal narrowing. L1/L2: Mild degenerative hyp ertrophic facet arthrosis. No canal stenosis. Mild bilateral neural foraminal narrowing. L2/L3: Mild diffuse disc bul ge measuring approximately 3 mm in depth. Moderate degenerative facet and ligamentum flavum hypertrophy. Moderate canal stenosis. Mild right neural foraminal narrowing and mild/moderate left neural foraminal narrowing. L3/L4: Mild diffuse disc bul ge measuring approximately 2 mm in depth. Moderate degenerative facet and ligamentum flavum hypertrophy. Mild canal stenosis. Mild/moderate bilateral neural foraminal narrowing. L4/L5: Degenerative grade 1 anterolisthesis of L4 on L5 measuring 5 mm. Mild diffuse disc bulge. Severe degenerative facet arthrosis bilaterally. Moderate canal stenosis. Moderate bilateral neural foraminal narrowing. L5/S1: Mild/moderate diffuse disc bulge, asymmetrically greater within the neural foramina with mild endplate spurring. Moderate bilateral degenerative facet arthrosis. No canal stenosis. Moderate to severe bilateral neural foraminal narrowing. Visualized portion of the ki dneys unremarkable. The visualized aorta is normal in caliber. IMPRESSION: 1. Multilevel degenerative d isc disease and facet arthrosis resulting in variable canal stenosis and neural foraminal narrowing. 2. Grade 1 degenerative anterolisthesis of L4 on L5. 3. Moderate canal stenosis at L2/L3 and L4/L5. 4. Moderate to severe bilateral neural foraminal narrowing at L5/S1. 5. Moderate bilateral neural foraminal narrowing at L4/L5. 6. Mild canal stenosis and m ild/moderate neural foraminal narrowing at other levels as described. SL: [id number] 2015-12-29 MRI CERVICAL SPINE WITHOUT CONTRAST [facility] 19:24:54-00:00 TECHNIQUE: Multiplanar multi sequence imaging of the cervical spine was performed without administration of intravenous gadolinium. COMPARISON: 05/06/2015 CT, 12/22/2015 radiograph exam. FINDINGS: Multilevel disc desiccation is seen. C1-C2 level is normal. C2-C3: 3 mm left asymmetric posterior disc osteophyte complex is present, with moderate left lateral recess stenosis and mild central canal stenosis. No cord indentation is present. There is moderate le ft foraminal stenosis due to left foraminal oste ophytes. C3-C4: 2.8 mm right paracent ral shallow disc protrusion is seen. No significant central canal stenosis. Severe bilateral foraminal stenosis due to foraminal osteophytes. Significant left facet osteoarthritis is present. C4-C5: Laminectomy has been performed. Posterior element fixation hardware is again seen. Severe disc narrowing. Approximately 2.3 mm posterior osteophytes is seen without central canal stenosis due to the laminectomy. Moderate bi lateral foraminal stenosis is present due to foraminal osteophytes. C5-C6: 2.1 mm right paracent ral shallow disc protrusion is present. No central canal stenosis due to the laminectomy. Bilateral foraminal osteophytes are present with moderate right foraminal stenosis and mild left foraminal stenosis. C6-C7: Significant disc narr owing is present, with 3 mm posterior disc osteophyte complex with mild central canal stenosis. No cord indentation. Bilateral foraminal osteophytes and uncovertebral joint a rthrosis are present with moderate to severe arline ateral foraminal stenosis. C7-T1: 2 mm grade 1 anteroli sthesis is present with moderate bilateral facet osteoarthritis. Approximately 3.8 mm central disc protrusion is seen, with mild superior migrated component with mild central canal stenosis. No cord ind entation. Moderate to severe bilateral foraminal stenosis is present. The cervical cord signal is unremarkable without MRI evidence of myelomalacia. IMPRESSION: 1. Multilevel disc degenerative disease and spon dylosis. 2. C4-C5 laminectomies. No pseudomeningocele. 3. Multilevel moderate to severe bilateral halie inal stenosis. 4. C7-T1 grade 1 degenerativ e anterolisthesis with central superiorly migrated disc extrusion. Mild central canal stenosis. No cord indentation. 2015-12-22 EXAM: XR CERVICAL SPINE 2 VIEWS CLIFTON Stearns 09:44:48-00:00 DATE: 12/22/2015 9:43 AM CDT INDICATION: Pain with radiculopathy COMPARISON: 08/03/2015 TECHNIQUE: AP and lateral radiographs of the cervical spine - 2 views FINDINGS: No spondylolisthesis present. Vertebral body heights are normal. No cervical spine fracture is identified. Unchanged posterior cervical fusion with articular pillar screws and stabilization rods at C4-C5. Spinous process resection and laminectomy noted at C4-C5. Severe degenerative disc disease present at C4-C 5, C6-C7. Mild degenerative disc disease present at C2-C3, C3-C4, C5-C6. Uncovertebral joint hypertrophy present at C5-C6 , C6-C7. Multilevel moderate facet arthropathy present th roughout the cervical spine. No prevertebral soft tissue edema is observed. IMPRESSION: Unchanged satisfactory appea jonathon of posterior spinal fusion at C4-C5 with spinous process resection and laminectomy. Unchanged multilevel mild an d severe degenerative disc disease, uncovertebral joint hypertrophy, and facet joint arthropathy as described. 2015-08-03 EXAM: XR CERVICAL SPINE 7 VIEWS CLIFTON Huntann 13:00:00-00:00 DATE: 08/03/2015 12:59 PM CDT INDICATION: Pain with radiculopathy COMPARISON: Cervical spine series 06/22/2015 TECHNIQUE: AP, lateral, open -mouth odontoid, RPO and LPO radiographs of the cervical spine show from the skull base through C7-T1. DISCUSSION: Satisfactory ali gnment of the cervical spine. Unchanged appearance of C4 and C5 laminectomy and posterior spinal fusion at C4-5 without hardware fracture or perihardware lucency. Unchanged, satisfactory alignment cervi pretty spine. Unchanged severe degenerative disc disease at C4-5 with mild endplate sclerosis and erosions. Moderate degenerative disc disease at the remainder of the lower cervical spine is unchanged as well. There is moderate bilateral osseous neuroforaminal narrowing at C3-4. Mild bilateral osseous neuroforaminal narrowing at the C6-7. No subluxation of the cervical spine on flexion or extension. IMPRESSION: 1. Unchanged moderate to sev ere spondylosis of the lower cervical spine, worst at C4-5. 2. Unchanged, satisfactory a ppearance of laminectomy and posterior spinal fusion at C4-5. 3. No subluxation on flexion-extension. 4. Moderate C3-4 and mild C6-7 bilateral osseous neuroforaminal narrowing. 2015-06-22 EXAM: XR CERVICAL SPINE 2 VIEWS [facility] 13:44:52-00:00 DATE: 06/22/2015 1:33 PM CDT INDICATION: Pain with radiculopathy COMPARISON: Cervical spine series 04/06/2015 TECHNIQUE: AP and lateral ra diographs of the cervical spine show from the skull base through C6-7. DISCUSSION: Unchanged alignm ent of the cervical spine. Unchanged severe degenerative disc disease and facet arthropathy of the mid and lower cervical spine. Interval performance of laminectomies and pos terior spinal fusion at C4-5 without hardware fracture or perihardware lucency. IMPRESSION: 1. Interval performance of l aminectomies and posterior spinal fusion at C4-5 without hardware complication apparent. 2. Unchanged cervical spondylosis. 2015-05-06 Exam: CT cervical spine without contrast. [facility] 20:35:04-00:00 INDICATION: Backache. Center COMPARISON: Radiographs are 04/06/2015. TECHNIQUE: Noncontrast axial imaging of the cervical spine was performed. Coronal and sagittal reconstructions are performed. Discussion: Postoperative ch anges of decompressive laminectomies at C4 and C5 are present with posterior stabilization hardware at C4-C5 demonstrating satisfactory alignment. Posterior approach drainage catheter ascends up the operative levels. Decreased height of the disc spaces at C4-C5 and C6-C7 with marginal osteophytes at these levels. Bilateral facet arthropathy at C4-C5 and C5-C6, left-sided facet arthropathy at C2-C3. Bilateral facet a rthropathy at C6-C7 and C7-T 1. Calcification in the deep subcutaneous soft tissues at the level of C5 may represent a nuchal calcification. IMPRESSION: Postoperative changes of C4- C5 decompressive laminectomies and posterior stabilization at C4-C5 with satisfactory alignment. 2015-04-06 EXAM: XR CERVICAL SPINE 7 VIEWS CLIFTON Stearns 16:57:52-00:00 DATE: 04/06/2015 at 1702 hours INDICATION: Cervical radiculopathy COMPARISON: None TECHNIQUE: AP, lateral, open -mouth odontoid, RPO, LPO, flexion, and extension radiographs of the cervical spine show from the skull base through. DISCUSSION: Degenerative disc disease is present throughout the cervical spine, most severe at C4-C5 and C6-C7, with severe disc height loss at these levels, as well as endplate sclerosis and marginal osteophyte fo rmation. Severe facet arthro neha is present throughout the cervical spine on the left, with moderate facet arthropathy on the right. Limited evaluation of the ne ural foramen shows severe narrowing of the right C3-C4 and C4-5, moderate at C5-6 and C6-7. There is moderate neural foraminal narrowing of the left C3-4, C4-5, and C6-7, wit h mild neural foraminal narrowing at C2-3 and C5 -6. No excessive translation is seen comparing the f lexion and extension views. The prevertebral soft tissues appear normal. IMPRESSION: 1. Degenerative disc disease throughout the cervical spine, with most severe disc space narrowing at C4-C5 and C6-C7. 2. Facet arthropathy, severe on the left, and mo derate on the right. 3. Severe narrowing of the right C3-C4 and C4-5 neural foramina. 4. Moderate narrowing of the right C5-6, C6-7 and left C3-4, C4-5, and C6-7 neural foramina. 5. Mild neural foramen narrowing on the left at C2-3 and C5-6.
[2022-08-31] MEDS ORDERED: TRAMADOL HCL 50 MG TAB ONE ×2 (20:33→20:35)
[2022-08-31] MEDS ORDERED: MORPHINE 4 MG/ML SYR ONE (21:54)
[2022-08-31] MEDS ORDERED: ONDANSETRON 4 MG (ODT) TAB ONE (21:54)
--- NOTE | 2022-08-31 22:10 | RAD REPORT ---
EXAM DESCRIPTION: US - Extremity Venous Uni Ltd - 08/31/2022 9:40 pm CLINICAL HISTORY: Pain COMPARISON: None. TECHNIQUE: Real-time sonographic evaluation of the left lower extremity deep venous system was perfo rmed. FINDINGS: Normal compressibility, flow augmentation, phasic flow and spontaneous flow is identified in the left lower extremity deep venous system. No intraluminal filling defects seen. IMPRESSION: No DVT in the left lower extremity.
--- NOTE | 2022-08-31 22:11 | RAD REPORT ---
EXAM DESCRIPTION: US - Lower Extremity Artery Uni Ltd - 08/31/2022 9:40 pm CLINICAL HISTORY: Pain COMPARISON: None FINDINGS: The common femoral, superficial femoral and popliteal arteries demonstrate triphasic waveforms The posterior tibial and dorsalis pedis arteries demonstrate monophasic waveforms. IMPRESSION: Monophasic flow in the posterior tibial and dorsalis pedis arteries consistent with mode rate to severe stenoses of the runoff vessels. Triphasic flow otherwise present.
[2022-08-31 23:14] LABS: Absolute Lymphocytes (CBC) 1.6 K/uL (0.7-4.9); Hematocrit 31.6 % (39.6-49.0); Lymphocytes % 17.3 % (15.3-44.8); MCV 97.2 fL (80-100); MPV 7.9 fL (7.6-11.3); RBC Red Blood Cell Count 3.25 M/uL (4.33-5.43)
[2022-08-31 23:18] LABS: Protime INR 1.09
[2022-08-31 23:22] LABS: Albumin 3.8 g/dL (3.4-5.0); Bilirubin Total 0.4 mg/dL (0.2-1.0); Potassium 3.9 mEq/L (3.5-5.1); Protein, Total 6.9 g/dL (6.4-8.2)
--- NOTE | 2022-08-31 23:31 | RAD REPORT ---
EXAM DESCRIPTION: CT - Lower Ext Wo Con W/ Mpr - 08/31/2022 11:22 pm CLINICAL HISTORY: knee and tib fib swelling, pain, hematoma COMPARISON: Extremity Venous Uni Ltd dated 08/31/2022 FINDINGS: Prepatellar fluid likely may reflect prepatellar bursitis or hematoma. Status post left to chriss knee arthroplasty. The hardware is intact. Alignment is unremarkable. Diffuse skin thickening and subcutaneous edema. Generalized muscular atrophy. Peripheral vascular calcifications. IMPRESSION: No fracture of the left lower extremity. Intact left knee arthroplasty. Pronounced prepa tellar swelling be either fluid within the prepatellar bursa or hematoma. Nonspecific skin thickening and subcutaneous edema.
--- NOTE | 2022-09-01 00:05 | ER ---
Nurse's Notes [facility] Name: Radu Dickey Age: 77 yrs Sex: Male : 1945 Arrival Date: 08/31/2022 Time: 19:05 Bed 17 Private MD: Diagnosis: Cellulitis of left lower limb;prepatellar hematoma Presentation: 08/31 19:52 Chief complaint: Patient states: fall on August 17. currently on plavix. went to ER. ss all scans and imaging negative and was discharged. followed up with PCP on August 22, repeated Xrays due to l knee pain. negative for break. positive for hematoma. im still having really bad pain in my knee and shooting pains into my ankle with swelling. Coronavirus screen: Client denies travel out of the [place] in the last 14 days. At this time, the client does not indicate any symptoms associated with coronavirus-19. Ebola Screen: No symptoms or risks identified at this time. Initial Sepsis Screen: Does the patient meet any 2 criteria? No. Patient's initial sepsis screen is negative. Does the patient have a suspected source of infection? No. Patient's initial sepsis screen is negative. Risk Assessment: Do you want to hurt yourself or someone else? Patient reports no desire to harm self or others. Onset of symptoms is unknown. 19:52 Method Of Arrival: Wheelchair ss 19:52 Acuity: OLIVER 3 ss 21:17 Care prior to arrival: None. Mechanism of Injury: Fall from standing position. Trauma rv event details: Injury occurred in the [facility], Injury occurred: at home. Triage Assessment: 19:59 General: Appears in no apparent distress. uncomfortable, Behavior is calm, cooperative. ss Pain: Complains of pain in left leg. EENT: No deficits noted. No signs and/or symptoms were reported regarding the EENT system. Neuro: No deficits noted. Gregory Agitation-Sedation Scale (RASS): 0 - Alert and Calm Level of Consciousness is awake, alert, obeys commands, Oriented to person, place, time, situation. Cardiovascular: No deficits noted. Denies chest pain, shortness of breath. Respiratory: No deficits noted. Airway is patent Respiratory effort is even, unlabored, Respiratory pattern is regular, symmetrical. GI: No deficits noted. No signs and/or symptoms were reported involving the gastrointestinal system. : No deficits noted. No signs and/or symptoms were reported regarding the genitourinary system. Derm: Skin is intact, is healthy with good turgor, Skin is dry, Skin is normal, Skin temperature is warm Bruising that is dark purple, on left leg Reports pain that is 9 out of 10 on a pain scale. Musculoskeletal: Circulation, motion, and sensation intact. Range of motion: limited in left knee Swelling present in left leg. Trauma Activation: Not Applicable Physician: ED Physician; Name: ; Notified At: ; Arrived At: Physician: General Surgeon; Name: ; Notified At: ; Arrived At: Physician: Radiology; Name: ; Notified At: ; Arrived At: Physician: Respiratory; Name: ; Notified At: ; Arrived At: Physician: Lab; Name: ; Notified At: ; Arrived At: Historical: - Allergies: 19:59 amlodipine; ss 19:59 Travatan Z; ss - Home Meds: 19:59 Farxiga oral [Active]; Januvia oral [Active]; Omeprazole Oral [Active]; Oxybutynin ss Chloride Oral [Active]; paroxetine oral [Active]; Amiodarone Oral [Active]; Plavix Oral [Active]; losartan oral [Active]; Simvastatin Oral [Active]; gabapentin oral [Active]; Voltaren Arthritis Pain topical [Active]; - PMHx: 19:59 Diabetes mellitus; gerd; Anxiety; afib; HTN; Hypercholesterolemia; Glaucoma; ss - Immunization history:: Adult Immunizations up to date, Client reports receiving the 2nd dose of the Covid vaccine. - Social history:: Smoking status: Patient denies any tobacco usage or history of. Patient/guardian denies using alcohol, street drugs. - Immunization history: Last tetanus immunization:. Screenin:15 [facility] Fall Risk Assessment (Adult) History of falling in the last 3 months, rv including since admission Yes- fall prone (multiple falls) (3 pts) Confusion or Disorientation No (0 pts) Intoxicated or Sedated No (0 pts) Impaired Gait Yes (1 pt) Mobility Assist Device Used Yes (1 pt) Altered Elimination No (0 pt) Score/Fall Risk Level 3 or more points = High Risk Oriented to surroundings, Maintained a safe environment, Educated pt \T\ family on fall prevention, incl call for assistance when getting out of bed, Assessed \T\ reinforced patient's understanding of fall precautions, Provided non-skid footwear, Hourly rounding (assess needs \T\ fall precautionary measures) done, Used ambulatory aids as needed (educated on \T\ assisted with), Used gait belt as appropriate Implemented a Fall Risk Plan of Care, Apply high fall risk patient identification: yellow non skid footwear/ fall signage, Placed fall mat w/ non beveled edge next to bed, Activated bed/chair alarm, Remained w/in arm's length of patient and in sight while toileting, Offered frequent toileting (1:1 observation), Remained with patient while ambulating, Utilized family, sitter, or virtual calender tender as indicated. Abuse screen: Denies threats or abuse. Denies injuries from another. Nutritional screening: No deficits noted. Tuberculosis screening: No symptoms or risk factors identified. Primary Survey: 20:30 NO uncontrolled hemorrhage observed. rv 20:30 Breathing/Chest: Spontaneous respiratory effort, equal unlabored respirations, breath rv sounds clear bilaterally, regular pattern, symmetrical chest rise and fall. Respiratory effort: spontaneous, unlabored. Circulation: No external hemorrhage present. Regular and strong central pulse, skin warm/dry/normal color. Disability Client is alert. Exposure/Environment: A warming method has been applied: A warm blanket has been provided to the patient. 21:17 Reassessment Breathing: Spontaneous respiratory effort, equal unlabored respirations, rv breath sounds clear bilaterally, regular pattern with symmetrical chest rise and fall. Circulation: No external hemorrhage noted. Regular and strong central pulse, skin warm/dry/normal color. Disability: Alert. Secondary Survey: 21:16 HEENT: No deficits noted. Head No injury/deformity Face No injury/deformity Eyes: No rv injury or deformity noted. Ears: clear Nose: clear Throat: No injury or deformity noted. Gastrointestinal: No deficits noted. : No deficits noted. Musculoskeletal: Swelling present in left midcalf and left knee and left leg. Assessment: 20:30 General: Appears uncomfortable, Behavior is calm, cooperative. rv 20:30 Pain: Complains of pain in left leg. Neuro: Level of Consciousness is awake, alert, rv obeys commands, Oriented to person, place, time, situation. Cardiovascular: Capillary refill < 3 seconds. Respiratory: Airway is patent Respiratory effort is even, unlabored. GI: No signs and/or symptoms were reported involving the gastrointestinal system. : No signs and/or symptoms were reported regarding the genitourinary system. Derm: Wound noted left knee Wound is ABRASION, WITH REDNESS AND SWELLING AROUND THE AREA. Musculoskeletal: Swelling present in left midcalf and left knee and left leg Reports pain in left midcalf and left knee and left leg. Vital Signs: 19:52 BP 143 / 84; Pulse 96; Resp 18 S; Temp 98.3(O); Pulse Ox 98% on R/A; Weight 99.79 kg ss (R); Height 5 ft. 9 in. (R); Pain 9/10; 21:18 BP 139 / 71; Pulse 68; Resp 16; Temp 98; Pulse Ox 100% on R/A; rv 23:08 BP 135 / 70; Pulse 64; Resp 16; Pulse Ox 100% ; rv 09/01 01:03 BP 136 / 74; Pulse 70; Resp 17; Temp 98; Pulse Ox 99% on R/A; rv 08/31 19:52 Body Mass Index 32.49 (99.79 kg, 175.26 cm) ss 08/31 19:52 Pain Scale: Adult ss Mira Coma Score: 08/31 20:30 Eye Response: spontaneous(4). Motor Response: obeys commands(6). Verbal Response: rv oriented(5). Total: 15. 22:00 Eye Response: spontaneous(4). Motor Response: obeys commands(6). Verbal Response: rv oriented(5). Total: 15. 23:09 Eye Response: spontaneous(4). Motor Response: obeys commands(6). Verbal Response: rv oriented(5). Total: 15. 09/01 01:03 Eye Response: spontaneous(4). Motor Response: obeys commands(6). Verbal Response: rv oriented(5). Total: 15. Trauma Score (Adult): 08/31 20:30 Eye Response: spontaneous(1); Verbal Response: oriented(1); Motor Response: obeys rv commands(2); Systolic BP: > 89 mm Hg(4); Respiratory Rate: 10 to 29 per min(4); Equality Score: 15; Trauma Score: 12 ED Course: 19:06 Patient arrived in ED. jj6 19:28 Milagros Ojeda PA-C is PHCP. sb4 19:28 Lacho Betancur MD is Attending Physician. sb4 19:58 Triage completed. ss 19:59 Arm band placed on right wrist. ss 20:20 Scooter Narvaez, MING is Primary Nurse. rv 21:16 No provider procedures requiring assistance completed. rv 21:17 Patient has correct armband on for positive identification. Placed in gown. Bed in low rv position. Call light in reach. Side rails up X 1. Adult w/ patient. Provided Education on: WOUND CARE. 21:18 Thermoregulation: warm blanket given to patient. rv 21:41 Extremity Venous Uni Ltd US In Process Unspecified. EDMS 21:41 Lower Extremity Artery Uni Ltd US In Process Unspecified. EDMS 22:00 Patient maintains SpO2 saturation greater than 95% on room air. rv 22:45 Inserted saline lock: 20 gauge in right forearm, using aseptic technique. Blood rv collected. 23:23 Lower Ext Wo Con W/ Mpr In Process Unspecified. EDMS 09/01 01:04 IV discontinued, intact, bleeding controlled, No redness/swelling at site. Pressure rv dressing applied. Administered Medications: 08/31 20:30 Drug: traMADol PO 100 mg Route: PO; rv 23:08 Follow up: Response: No adverse reaction; Marked relief of symptoms rv 21:48 Drug: morphine IM 4 mg Route: IM; Site: right deltoid; rv 23:08 Follow up: Response: No adverse reaction; Marked relief of symptoms rv 21:48 Drug: Ondansetron PO 4 mg Route: PO; rv 23:08 Follow up: Response: No adverse reaction rv 09/01 00:10 Drug: Clindamycin IVPB 900 mg Route: IVPB; Infused Over: 30 mins; Site: right forearm; rv 01:03 Follow up: IV Status: Completed infusion; IV Intake: 50ml rv 01:03 Follow up: Response: No adverse reaction rv Medication: 08/31 21:17 VIS not applicable for this client. rv Intake: 09/01 01:03 IV: 50ml; Total: 50ml. rv Output: 01:05 Urine: 200ml; Total: 200ml. rv Outcome: 00:04 Discharge ordered by . sb4 01:04 Discharged to home via wheelchair, with family. rv 01:04 Condition: good 01:04 Discharge instructions given to patient, family, Instructed on discharge instructions, follow up and referral plans. medication usage, Demonstrated understanding of instructions, follow-up care, medications, wound care, Prescriptions given X 2. 01:04 Patient's length of stay in the Emergency Department was greater than 2 hours. rv DIAGNOSTICSPatient's length of stay extended due to 01:05 Patient left the ED. rv Signatures: Dispatcher [employer] EDMS Janine Jackson RN RN Scooter Narvaez RN RN rv Avril [id number] Milagros Ojeda PA-C PA-C sb4
--- NOTE | 2022-09-01 00:06 | EDPHYS ---
Physician Documentation [facility] Name: Radu Dickey Age: 77 yrs Sex: Male : 1945 Arrival Date: 08/31/2022 Time: 19:05 Bed 17 Private MD: ED Physician Lacho Betancur HPI: 08/31 20:27 This 77 yrs old Male presents to ER via Wheelchair with complaints of Fall Injury, Leg sb4 Pain, Ankle Injury. 20:27 Details of fall: The patient fell from an upright position, while standing. Onset: The sb4 symptoms/episode began/occurred 2 week(s) ago. Associated injuries: The patient sustained left leg. The patient has been recently seen by a physician: the patient's primary care provider, an orthopedic surgeon. patient states he fell on his right knee about 2 weeks ago, no fracture, but recently developed a hematoma that has been evaluated by ortho. states the pain has increased significantly. it shoots down from his knee to his ankle. Historical: - Allergies: 19:59 amlodipine; ss 19:59 Travatan Z; ss - Home Meds: 19:59 Farxiga oral [Active]; Januvia oral [Active]; Omeprazole Oral [Active]; Oxybutynin ss Chloride Oral [Active]; paroxetine oral [Active]; Amiodarone Oral [Active]; Plavix Oral [Active]; losartan oral [Active]; Simvastatin Oral [Active]; gabapentin oral [Active]; Voltaren Arthritis Pain topical [Active]; - PMHx: 19:59 Diabetes mellitus; gerd; Anxiety; afib; HTN; Hypercholesterolemia; Glaucoma; ss - Immunization history:: Adult Immunizations up to date, Client reports receiving the 2nd dose of the Covid vaccine. - Social history:: Smoking status: Patient denies any tobacco usage or history of. Patient/guardian denies using alcohol, street drugs. - Immunization history: Last tetanus immunization:. ROS: 20:27 Constitutional: Negative for fever, chills, and weight loss, Eyes: Negative for injury, sb4 pain, redness, and discharge, Cardiovascular: Negative for chest pain, palpitations, and edema, Respiratory: Negative for shortness of breath, cough, wheezing, and pleuritic chest pain, Abdomen/GI: Negative for abdominal pain, nausea, vomiting, diarrhea, and constipation, Skin: Negative for injury, rash, and discoloration, Neuro: Negative for headache, weakness, numbness, tingling, and seizure. 20:27 MS/extremity: Positive for injury or acute deformity, decreased range of motion, erythema, pain, tenderness, warmth, of the left leg and left knee. 20:27 All other systems are negative. Exam: 20:27 Constitutional: This is a well developed, well nourished patient who is awake, alert, sb4 and in no acute distress. Head/Face: Normocephalic, atraumatic. Eyes: Extra-ocular motions intact. Periorbital areas with no swelling, redness, or edema. Cardiovascular: Regular rate and rhythm with a normal S1 and S2. Respiratory: Lungs have equal breath sounds bilaterally, clear to auscultation and percussion. No rales, rhonchi or wheezes noted. No increased work of breathing, no retractions or nasal flaring. Abdomen/GI: Soft, non-tender, no distension. Skin: Warm, dry with normal turgor. Normal color with no rashes, no lesions, and no evidence of cellulitis. Neuro: Awake and alert, GCS 15, oriented to person, place, time, and situation. Cranial nerves II-XII grossly intact. Motor strength 5/5 in all extremities. Sensory grossly intact. Cerebellar exam normal. Normal gait. 20:27 Musculoskeletal/extremity: ROM: intact in all extremities, Circulation is intact in all extremities. Pulses: are normal with no appreciated deficits, Perfusion: the patient is normally perfused throughout, Perfusion: the extremity is normally perfused throughout, Calf tenderness, that is moderate, of the left lower extremeity, Edema, 2+ to the left midcalf is noted, Sensation intact. DVT Exam: pain, swelling, tenderness, erythema, increased warmth, of the left leg. Vital Signs: 19:52 BP 143 / 84; Pulse 96; Resp 18 S; Temp 98.3(O); Pulse Ox 98% on R/A; Weight 99.79 kg ss (R); Height 5 ft. 9 in. (R); Pain 9/10; 21:18 BP 139 / 71; Pulse 68; Resp 16; Temp 98; Pulse Ox 100% on R/A; rv 23:08 BP 135 / 70; Pulse 64; Resp 16; Pulse Ox 100% ; rv 09/01 01:03 BP 136 / 74; Pulse 70; Resp 17; Temp 98; Pulse Ox 99% on R/A; rv 08/31 19:52 Body Mass Index 32.49 (99.79 kg, 175.26 cm) ss 08/31 19:52 Pain Scale: Adult ss Mira Coma Score: 08/31 20:30 Eye Response: spontaneous(4). Motor Response: obeys commands(6). Verbal Response: rv oriented(5). Total: 15. 22:00 Eye Response: spontaneous(4). Motor Response: obeys commands(6). Verbal Response: rv oriented(5). Total: 15. 23:09 Eye Response: spontaneous(4). Motor Response: obeys commands(6). Verbal Response: rv oriented(5). Total: 15. 09/01 01:03 Eye Response: spontaneous(4). Motor Response: obeys commands(6). Verbal Response: rv oriented(5). Total: 15. Trauma Score (Adult): 08/31 20:30 Eye Response: spontaneous(1); Verbal Response: oriented(1); Motor Response: obeys rv commands(2); Systolic BP: > 89 mm Hg(4); Respiratory Rate: 10 to 29 per min(4); Mira Score: 15; Trauma Score: 12 MDM: 19:28 Patient medically screened. sb4 20:27 Differential diagnosis: DVT, arterial occlusion, acute fracture, septic joint. sb4 23:58 Data reviewed: vital signs, nurses notes, lab test result(s), radiologic studies, CT sb4 scan, doppler, ultrasound, I have discussed the patient's presentation/case with the attending Emergency Department Physician; and as a result, I will discharge patient. Consideration of Admission/Observation Escalation of care including admission/observation considered. I considered the following discharge prescriptions or medication management in the emergency department Medications were administered in the Emergency Department. See MAR. Historians other than the Patient: Spouse/Significant Other: . Counseling: I had a detailed discussion with the patient and/or guardian regarding: the historical points, exam findings, and any diagnostic results supporting the discharge/admit diagnosis, lab results, radiology results, the need for outpatient follow up, a orthopedic surgeon, to return to the emergency department if symptoms worsen or persist or if there are any questions or concerns that arise at home. Medication response: morphine partially relieved the patient's pain. 09/01 00:02 Special discussion: sb4 08/31 22:40 Order name: Blood Culture Adult (2) sb4 08/31 22:40 Order name: CBC with Diff; Complete Time: 23:31 sb4 08/31 22:40 Order name: CMP; Complete Time: 23:31 sb4 08/31 22:40 Order name: Lactate w/ 2H reflex if indic.; Complete Time: 23:31 sb4 08/31 22:40 Order name: Protime (+inr); Complete Time: 23:31 sb4 08/31 22:40 Order name: Ptt, Activated; Complete Time: 23:31 sb4 08/31 20:17 Order name: Extremity Venous Uni Ltd US; Complete Time: 22:14 sb4 08/31 20:17 Order name: Lower Extremity Artery Uni Ltd US; Complete Time: 22:14 sb4 08/31 23:03 Order name: Lower Ext Wo Con W/ Mpr; Complete Time: 23:32 EDMS 08/31 22:40 Order name: IV Saline Lock - Large Bore; Complete Time: 22:57 sb4 08/31 22:40 Order name: Labs collected and sent; Complete Time: 22:57 sb4 Administered Medications: 08/31 20:30 Drug: traMADol PO 100 mg Route: PO; rv 23:08 Follow up: Response: No adverse reaction; Marked relief of symptoms rv 21:48 Drug: morphine IM 4 mg Route: IM; Site: right deltoid; rv 23:08 Follow up: Response: No adverse reaction; Marked relief of symptoms rv 21:48 Drug: Ondansetron PO 4 mg Route: PO; rv 23:08 Follow up: Response: No adverse reaction rv 09/01 00:10 Drug: Clindamycin IVPB 900 mg Route: IVPB; Infused Over: 30 mins; Site: right forearm; rv 01:03 Follow up: IV Status: Completed infusion; IV Intake: 50ml rv 01:03 Follow up: Response: No adverse reaction rv Disposition: 19:18 Co-signature as Attending Physician, Lacho Betancur MD I reviewed the patient's care rt provided by the Advanced Practice Provider and agree with the diagnosis and treatment plan. Disposition Summary: 09/01/22 00:04 Discharge Ordered Location: Home sb4 Problem: an ongoing problem sb4 Symptoms: are unchanged sb4 Condition: Stable sb4 Diagnosis - Cellulitis of left lower limb sb4 - prepatellar hematoma sb4 Followup: sb4 - With: Private Physician - When: 2 - 3 days - Reason: Further diagnostic work-up, Recheck today's complaints, Continuance of care, Re-evaluation by your physician Discharge Instructions: - Discharge Summary Sheet sb4 - Cellulitis, Adult sb4 - Prepatellar Bursitis sb4 Forms: - Medication Reconciliation Form sb4 - Thank You Letter sb4 - Antibiotic Education sb4 - Prescription Opioid Use sb4 - Patient Portal Instructions sb4 Prescriptions: - Clindamycin HCl 300 mg Oral Capsule - take 1 capsule by ORAL route every 6 hours for 10 days; 40 capsule; Refills: 0, sb4 Product Selection Permitted - Tramadol 50 mg Oral Tablet - take 1 tablet by ORAL route every 8 hours as needed; 12 tablet; Refills: 0, sb4 Product Selection Permitted Signatures: Dispatcher [employer] EDMS Janine Jackson RN RN Scooter Narvaez RN RN Milagros Richmond, PA-C PA-C sb4 Lacho Betancur MD MD rt Corrections: (The following items were deleted from the chart) 08/31 23:03 22:22 Knee Left Wo Con ordered. EDMS EDMS 23:04 22:22 Tib Fib Left Wo Con ordered. EDMS EDMS
[2022-09-01] MEDS ORDERED: CLINDAMYCIN 900MG/D5W 900 MG/50 ML IVPB IV ONE (00:16)
[2022-09-01 02:30] VITALS: TEMP 98
[2022-09-01 02:34] VITALS: BP 136/74; O2SAT 99
== END 2022-09-01 01:05 | disposition home or self-care (01) ==
LOC: ER 19:05
DX: L03.116 Cellulitis of left lower limb (principal); S80.02XA Contusion of left knee, initial encounter; E11.9 Type 2 diabetes mellitus without complications; I10 Essential (primary) hypertension; I48.91 Unspecified atrial fibrillation; Z79.01 Long term (current) use of anticoagulants; Z88.8 Allergy status to other drugs, medicaments and biological substances
CPT/HCPCS: 96365; 87040 ×2; 85025; 36415; 85610; 83605; 85730; 80053; 73700; 76377; 93926; 93971; 96372; 99285; Q0162

== ENCOUNTER 2022-10-24 08:39 | Day surgery (SDC) | payer OTHER ==
[2022-10-19 13:24] LABS: Protime INR 1.02
--- NOTE | 2022-10-19 13:27 | RAD REPORT ---
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 COMPARISON: Chest Pa And Lat (2 Views) dated 08/07/2016; CHEST SINGLE VIEW dated 08/14/2012; CHEST PA AND LAT 2 VIEW dated 08/10/2012 TECHNIQUE: PA and lateral views of the chest were obtained. FINDINGS: The lungs are hyperexpanded compatible with COPD. The heart is upper limit of normal in si ze. No fracture or aggressive bony process. IMPRESSION: COPD without acute process identified. The USPSTF recommends annual screening for lung cancer with low-dose CT (LDCT) in adults aged 50 to 80 years who have a 20 pack-year smoking history and currently smoke or have quit within the past 15 years.
[2022-10-19 13:29] LABS: Absolute Lymphocytes (CBC) 1.6 K/uL (0.7-4.9); Hematocrit 33.5 % (39.6-49.0); Lymphocytes % 19.9 % (15.3-44.8); MCV 96.9 fL (80-100); MPV 8.1 fL (7.6-11.3); Platelets 116 thou/uL (152-406); RBC Red Blood Cell Count 3.45 M/uL (4.33-5.43)
[2022-10-19 13:32] LABS: Potassium 4.4 mEq/L (3.5-5.1)
--- NOTE | 2022-10-23 17:00 | EKG ---
Test Date: 2022-10-19 Test Time: 13:01:03 Psychology Intern: KIM MEASUREMENT RESULTS: Intervals: Rate: 60 NC: 180 QRSD: 102 QT: 472 QTc: 472 [place]: P: 79 NC: 180 QRS: 37 T: 47 INTERPRETIVE STATEMENTS: Normal sinus rhythm Low voltage QRS Nonspecific T wave abnormality Prolonged QT Abnormal ECG Compared to ECG 07/06/2022 14:52:04 T-wave abnormality now present Prolonged QT interval now present Atrial fibrillation no longer present ST (T wave) deviation no longer present Electronically Signed On 10-23-22 16:48:46 CDT by Alverto Benavides
[2022-10-24] MEDS ORDERED: NA CHLORIDE 0.9% 500 ML ONE (08:57)
[2022-10-24] MEDS ORDERED: HEPA 1000U/500MLS 2,000 UNIT/1,000 ML BAG IV ONE (10:13)
[2022-10-24] MEDS ORDERED: FENTANYL CITR 100 MCG/2 ML ONE (10:15)
[2022-10-24] MEDS ORDERED: CLOPIDOGREL 75 MG TABLET ONE (10:16)
[2022-10-24] MEDS ORDERED: MIDAZOLAM HCL 2 MG/2 ML INJ ONE (10:16)
[2022-10-24] MEDS ORDERED: HEPARIN 5000 UNIT/ML 1 ML VIAL ONE (10:16)
[2022-10-24] MEDS ORDERED: VERAPAMIL HCL 10 MG/4 ML VIAL IV ONE (10:16)
[2022-10-24] MEDS ORDERED: ASPIRIN 325 MG TAB ONE (10:16)
[2022-10-24] MEDS ORDERED: TICAGRELOR 90 MG TABLET PO ONE (10:17)
[2022-10-24] MEDS ORDERED: HEPARIN 10,000 UNIT/10 ML VIAL IV ONE (10:17)
[2022-10-24] MEDS ORDERED: ATROPINE SULF 1 MG/10 ML SYR IV ONE (10:17)
--- NOTE | 2022-10-24 13:31 | OP ---
Date of Procedure: 10/24/2022 Surgeon: RACHEL PEREZ Procedures Performed: 1.Peripheral angiogram with runoff. 2.Balloon angioplasty of severe distal right SFA stenosis, used a 5.0 x 40 mm drug-coated balloon fo llowed by placement of self-expandable stent 6.0 x 18 mm. Excellent angiographic results at the end. Complications: None. Bleeding: Less than 20 mL. Anesthesia: Total sedation time was 1 hour. Used fentanyl and Versed. Access: 1.Left femoral artery 6-Micronesian closed with 6-Micronesian Angio-Seal. 2.Right radial artery 6-Micronesian closed with TR band. Description Of Procedure: After risks, benefits, and alternatives were explained, patient agreed to procedure and signed informal consent. Patient was brought into cardiac catheterization laboratory, prepped and draped in the usual sterile fashion. Then I accessed the right radial artery using pedAuditFile micropuncture kit, placed 6-Micronesian Slender sheath and took a long 4-Micronesian pigtail catheter into this aorta, performed an aortogram and runoff and then I obtained an access of the left femoral justo ry using micropuncture kit and ultrasound guidance and placed 6-Micronesian Kellogg sheath and gave syste jonnie heparin to assure ACT level above 250 needed throughout the procedure, and patient was already on aspirin and Plavix, and I took an OmniFlush catheter into the distal aorta with a [place] Advantage cr ossed to the side and I exchanged for a 6-Micronesian 45 cm destination sheath, and then the [place] Advanta ge wire was advanced into the SFA distally and I used a 5.0 x 4 mm drug coated balloon with excellent expansion. Then because of the focal dissection and still narrowed lumen, I placed 6.0 x 18 mm self -expanding stent with excellent results and then I removed the wire. Final angiogram was satisfactor y. I removed the catheter and removed the destination sheath and removed the groin sheath and placed a 6-Micronesian Angio-Seal for closure with good hemostasis. Patient tolerated the procedure very well, sent to recovery room in stable condition. Findings: 1.Distal aorta is patent. 2.The right lower extremity, right common iliac artery, external iliac, right common femoral, and pr ofunda were all widely patent. No disease, and the right SFA is without disease until the distal por tion where there is focal long 80% stenosis, status post successful balloon angioplasty and stent farnaz cement and there is 3-vessel below the knee with the peroneal being totally occluded and the other ve ssels are widely patent. 3.Left lower extremity: The left common iliac, external iliac, and common femoral and profunda were found widely patent and the left SFA has proximal 40% stenosis and then becomes normal and then the anterior tibial has multiple area of 99% stenosis, diffusely diseased and the posterior tibial is tot ally occluded, but the peroneal is widely patent and fills both arteries backwards. Conclusion: Severe bilateral peripheral vascular disease, status post intervention of the right dist al SFA as above. Plan: Staged intervention on the anterior tibial artery on the left lower extremity to be done in ab out 6 weeks from now. Continue aspirin, Plavix, and statin. SR/MODL Voice ID: [id number] Report ID: [id number]
[2022-10-24 14:47] VITALS: TEMP 97.9; O2SAT 99
[2022-10-24 17:30] VITALS: BP 125/47
== END 2022-10-24 15:48 | disposition home or self-care (01) ==
LOC: CCL 08:39
PROVIDERS: ATTEND Internal Medicine
DX: I70.223 Atherosclerosis of native arteries of extremities with rest pain, bilateral legs (principal); I10 Essential (primary) hypertension; E78.2 Mixed hyperlipidemia; I48.0 Paroxysmal atrial fibrillation; Z79.02 Long term (current) use of antithrombotics/antiplatelets; Z79.82 Long term (current) use of aspirin; Z79.899 Other long term (current) drug therapy; Z88.8 Allergy status to other drugs, medicaments and biological substances
CPT/HCPCS: 93005; 85025; 80048; 36415; 85610; 82947 ×2; 85347; 85730; 71046; 37226; 76937; C1893; C1725; C1769; J1644; J2250; J3010; J7040; 36200; 36245; 36246; J0461

== ENCOUNTER 2023-01-23 22:22 | Emergency (ER) | payer OTHER ==
[2023-01-23] MEDS ORDERED: LIDOCAINE 1% 20 ML MDV ONE (23:30)
--- NOTE | 2023-01-23 23:36 | EDPHYS ---
Physician Documentation [facility] Name: Radu Dickey Age: 77 yrs Sex: Male : 1945 Arrival Date: 01/23/2023 Time: 22:22 Bed 17 Private MD: ED Physician Wilmer Sánchez HPI: 01/23 22:54 This 77 yrs old Male presents to ER via Ambulatory with complaints of Finger sp4 Injury, LACERATION TO FINGER WITH TABLE SAW. 23:37 This very pleasant 77-year-old male who presents with left middle finger distal sp4 fingertip laceration via table saw at home. There is a small amount of tissue loss from the tip of the left middle finger, there is persistent bleeding secondary to the fact that patient is on Plavix and Xarelto at home. No Further injury. Historical: - Allergies: 22:49 amlodipine; kl 22:49 Travatan Z; kl - PMHx: 22:49 AFIB; Anxiety; diabetes mellitus; GERD; Glaucoma; HTN; Hypercholesterolemia; kl - PSHx: 22:49 Stented artery; kl - Immunization history:: Last tetanus immunization: unknown. - Social history:: Smoking status: Patient denies any tobacco usage or history of. - Family history:: not pertinent. ROS: 23:37 Constitutional: Negative for fever, chills, and weight loss, positive for left middle sp4 finger fingertip laceration 23:37 All other systems are negative, Exam: 23:37 Constitutional: This is a well developed, well nourished patient who is awake, alert, sp4 and in no acute distress. Head/Face: Normocephalic, atraumatic. Eyes: Pupils equal round and reactive to light, extra-ocular motions intact. Lids and lashes normal. Conjunctiva and sclera are not injected. Cornea within normal limits. Periorbital areas with no swelling, redness, or edema. ENT: Nares patent. No nasal discharge, no septal abnormalities noted. Tympanic membranes are normal and external auditory canals are clear. Oropharynx with no redness, swelling, or masses, exudates, or evidence of obstruction, uvula midline. Mucous membranes moist. Neck: Trachea midline, no thyromegaly or masses palpated, and no cervical lymphadenopathy. Supple, full range of motion without nuchal rigidity, or vertebral point tenderness. Chest/axilla: Normal chest wall appearance and motion. Nontender with no deformity. No lesions are appreciated. Cardiovascular: Regular rate and rhythm with a normal S1 and S2. No gallops, murmurs, or rubs. Normal PMI, no JVD. No pulse deficits. Respiratory: Lungs have equal breath sounds bilaterally, clear to auscultation and percussion. No rales, rhonchi or wheezes noted. No increased work of breathing, no retractions or nasal flaring. Abdomen/GI: Soft, non-tender, with normal bowel sounds. No distension or tympany. No guarding or rebound. No evidence of tenderness throughout. Back: No spinal tenderness. No costovertebral tenderness. Skin: Warm, dry with normal turgor. Normal color with no rashes, no lesions, and no evidence of cellulitis. MS/ Extremity: Pulses equal, no cyanosis. Neurovascular intact. Full, normal range of motion. Left middle finger fingertip laceration with damage to fingernail, there is small tissue loss, persistent bleeding from the laceration. Laceration measures approximately 1 cm long and is jagged Neuro: Awake and alert, GCS 15, oriented to person, place, time, and situation. Cranial nerves II-XII grossly intact. Motor strength 5/5 in all extremities. Sensory grossly intact. Psych: Awake, alert, with orientation to person, place and time. Behavior, mood, and affect are within normal limits Vital Signs: 22:47 BP 152 / 68; Pulse 10; Resp 18; Temp 97.8(TE); Pulse Ox 97% on R/A; Weight 9.98 kg (R); kl Height 5 ft. 9 in. ; Pain 5/10; 22:47 Weight 99.79 kg (R); kl 22:47 Body Mass Index 3.25 (99.79 kg, 175.26 cm) kl 22:47 Pain Scale: Adult kl Laceration: 23:37 Wound Repair of 1cm ( 0.4in ) subcutaneous laceration to left middle finger and left sp4 middle fingernail. Irregularly shaped.. Small area of skin loss, jagged laceration, persistent bleeding, fingernail damage. Distal fingernail had to be removed. Distal neuro/vascular/tendon intact. Anesthesia: Digital block administered with 10 mls of 1% lidocaine. Wound prep: Moderate cleansing, Copious irrigation. Skin closed with 4 4-0 Silk using interrupted sutures and sterile technique. Dressed with 4x4's, Kerlix. Patient tolerated well. MDM: 23:04 Patient medically screened. sp4 23:44 Differential diagnosis: Serration, crush injury, contusion. Data reviewed: vital signs, sp4 nurses notes, old medical records. Consideration of Admission/Observation Escalation of care including admission/observation considered. ED course: Serration was repaired and patient discharged in improved condition. . 01/23 23:05 Order name: Dressing - Wound; Complete Time: 23:22 sp4 01/23 23:05 Order name: Gloves, Sterile; Complete Time: 23:22 sp4 01/23 23:05 Order name: Setup Suture Tray; Complete Time: 23:22 sp4 Administered Medications: 23:21 Drug: Lidocaine Infiltration (1 %) 20 ml 20 ml Infiltration once; to bedside {Note: jb4 administered by ER provider.} Volume: 20 ml; Route: Infiltration; 23:46 Drug: Tetanus-Diphtheria Toxoid IM Adult 0.5 ml IM once; Provide Vaccine Information jb4 Statement (VIS). {Technical Sme: GLAMSQUAD; Exp: Sat Jul 11 2024; Lot #: [id number]; Series: 1 of 1; Patient Consent: Obtained; Date/Time: ; Source Name: Radu Dickey; Source Relationship: Self; Address Information: [address] [place] [address]; ; Education: Provided; VIS Presented Date: ; VIS Publication: Tetanus/Diphtheria/Pertussis (Tdap/Td) VIS 03/13/2011 (historic)} Route: IM; Site: right deltoid; Disposition Summary: 01/23/23 23:35 Discharge Ordered Problem: new sp4 Symptoms: have improved sp4 Condition: Stable sp4 Diagnosis - Laceration without foreign body of left middle finger with damage to nail sp4 Followup: sp4 - With: Private Physician - When: 10 - 14 days - Reason: Recheck today's complaints Discharge Instructions: - Discharge Summary Sheet sp4 - Laceration Care, Adult, [id number] sp4 Forms: - Patient Portal Instructions sp4 Prescriptions: - Ibuprofen 600 mg Oral Tablet - take 1 tablet ORAL route every 6 hours As needed take with food; 30 tablet; sp4 Refills: 0, Product Selection Permitted Signatures: Sadie Baeza RN RN kl Radu Davenport RN RN jb4 Wilmer Sánchez MD MD sp4
--- NOTE | 2023-01-23 23:36 | ER ---
Nurse's Notes [facility] Name: Radu Dickey Age: 77 yrs Sex: Male : 1945 Arrival Date: 01/23/2023 Time: 22:22 Bed 17 Private MD: Diagnosis: Laceration without foreign body of left middle finger with damage to nail Presentation: 01/23 22:47 Chief complaint: Patient states: cut left mid finger at 1630 this afternoon with table kl saw reports unable to stop bleeding dressing intact and dry at this time. Coronavirus screen: Vaccine status: Patient reports receiving the 2nd dose of the covid vaccine. Ebola Screen: Patient negative for fever greater than or equal to 101.5 degrees Fahrenheit, and additional compatible Ebola Virus Disease symptoms. Initial Sepsis Screen: Does the patient meet any 2 criteria? No. Patient's initial sepsis screen is negative. Does the patient have a suspected source of infection? No. Patient's initial sepsis screen is negative. Risk Assessment: Do you want to hurt yourself or someone else? Patient reports no desire to harm self or others. 22:47 Method Of Arrival: Ambulatory 22:47 Acuity: OLIVER 4 kl Triage Assessment: 22:50 General: Appears in no apparent distress. Behavior is calm, cooperative. Pain: Complains of pain in dorsal aspect of middle phalanx of left middle finger and dorsal aspect of proximal phalanx of left middle finger Pain currently is 5 out of 10 on a pain scale. Musculoskeletal: Parent/caregiver report the patient having pain in dorsal aspect of middle phalanx of left middle finger and dorsal aspect of proximal phalanx of left middle finger. Injury Description: Laceration. Historical: - Allergies: 22:49 amlodipine; kl 22:49 Travatan Z; kl - PMHx: 22:49 AFIB; Anxiety; diabetes mellitus; GERD; Glaucoma; HTN; Hypercholesterolemia; kl - PSHx: 22:49 Stented artery; kl Historical Immunization: - Administered Vaccines 23:46 Tetanus-Diphtheria Toxoid IM Adult 0.5 ml jb4 .Net Developer: [employer]; Exp: Sat Jul 11 2024; Lot #: [id number]; Series: 1 of 1; Patient Consent: Obtained; Date/Time: ; Source Name: Radu Dickey; Source Relationship: Self; Address Information: [address] [place] [address]; ; Education: Provided; VIS Presented Date: ; VIS Publication: Tetanus/Diphtheria/Pertussis (Tdap/Td) VIS 03/13/2011 (historic) 23:21 Lidocaine Infiltration (1 %) 20 ml jb4 - Immunization history:: Last tetanus immunization: unknown. - Social history:: Smoking status: Patient denies any tobacco usage or history of. - Family history:: not pertinent. Screenin:48 [facility] ED Fall Risk Assessment (Adult) History of falling in the last 3 months, jb4 including since admission No falls in past 3 months (0 pts) Confusion or Disorientation No (0 pts) Score/Fall Risk Level 0 - 2 = Low Risk Oriented to surroundings, Maintained a safe environment. Abuse screen: Denies threats or abuse. Nutritional screening: No deficits noted. Tuberculosis screening: No symptoms or risk factors identified. Assessment: 23:48 Reassessment: Patient appears in no apparent distress at this time. Patient and/or jb4 family updated on plan of care and expected duration. Pain level reassessed. Patient is alert, oriented x 3, equal unlabored respirations, skin warm/dry/pink. Vital Signs: 22:47 BP 152 / 68; Pulse 10; Resp 18; Temp 97.8(TE); Pulse Ox 97% on R/A; Weight 9.98 kg (R); kl Height 5 ft. 9 in. ; Pain 5/10; 22:47 Weight 99.79 kg (R); kl 22:47 Body Mass Index 3.25 (99.79 kg, 175.26 cm) kl 22:47 Pain Scale: Adult kl ED Course: 22:26 Patient arrived in ED. jj6 22:49 Triage completed. kl 22:54 Wilmer Sánchez MD is Attending Physician. sp4 23:21 Radu Davenport, RN is Primary Nurse. jb4 23:48 Patient has correct armband on for positive identification. Bed in low position. Call jb4 light in reach. Side rails up X 1. 23:48 No provider procedures requiring assistance completed. Patient did not have IV access jb4 during this emergency room visit. Administered Medications: 23:21 Drug: Lidocaine Infiltration (1 %) 20 ml 20 ml Infiltration once; to bedside {Note: jb4 administered by ER provider.} Volume: 20 ml; Route: Infiltration; 23:46 Drug: Tetanus-Diphtheria Toxoid IM Adult 0.5 ml IM once; Provide Vaccine Information jb4 Statement (VIS). {.Net Developer: [employer]; Exp: Sat Jul 11 2024; Lot #: [id number]; Series: 1 of 1; Patient Consent: Obtained; Date/Time: ; Source Name: Radu Dickey; Source Relationship: Self; Address Information: [address] [place] [address]; ; Education: Provided; VIS Presented Date: ; VIS Publication: Tetanus/Diphtheria/Pertussis (Tdap/Td) VIS 03/13/2011 (historic)} Route: IM; Site: right deltoid; Medication: 23:48 VIS not applicable for this client. jb4 Outcome: 23:35 Discharge ordered by . mahsa 23:48 Discharged to home ambulatory, with family, jb4 23:48 Condition: stable 23:48 Discharge instructions given to patient, Instructed on discharge instructions, follow up and referral plans. medication usage, Demonstrated understanding of instructions, follow-up care, medications, Prescriptions given X 1, 23:49 Patient left the ED. jb4 Signatures: Sadie Baeza RN Radu Pabon RN RN jb4 Jeffries, Jennifer jj6 Potepalov, Sergey, MD MD sp4
[2023-01-23] MEDS ORDERED: TDAP (DIPHTH,PERTUSS(ACELL),TET VAC) 0.5 ML VIAL IMVAC ONE (23:53)
[2023-01-24 00:14] VITALS: BP 152/68; TEMP 97.8; O2SAT 97
== END 2023-01-23 23:49 | disposition home or self-care (01) ==
LOC: ER 22:22
PROC: 0HQGXZZ Repair Left Hand Skin, External Approach (ICD-10-PCS; principal; 2023-01-23)
DX: S61.313A Laceration without foreign body of left middle finger with damage to nail, initial encounter (principal); Z23 Encounter for immunization
CPT/HCPCS: 90471; 99284; 12001; J2001